=== PATIENT | male | born 1970 | race Caucasian/White ===

== ENCOUNTER 2017-09-08 08:56 | Inpatient (IN) | payer MEDICAID, OTHER ==
--- NOTE | 2017-09-08 09:04 | ED PDOC ---
Arrival/HPI - General Historian: Patient - History of Present Illness Time/Duration: Other (see hpi) Context: Home <Traci Handhodan P - Last Filed: 09/10/17 10:41> <Jalen Ureña - Last Filed: 09/11/17 11:20> - General Time Seen by Provider: 09/08/17 09:04 - History of Present Illness Narrative History of Present Illness (Text): 09/08/17 09:04 This 47 yo male with pmh dm, alcoholism, htn, presents to this Emergency department complaining of sob, cough, palpitation, not feeling well since this morning. Patient admits drinking alcohol daily, and last time was 8 pm last night. Patient noted abdominal pain since last night. Patient denies nausea, vomiting, or urinary symptoms. (Madison Hand) Past Medical History - Provider Review Nursing Documentation Reviewed: Yes <HandTraci sunshinehodan P - Last Filed: 09/10/17 10:41> Family/Social History - Physician Review Nursing Documentation Reviewed: Yes Family/Social History: Other (noncontributory) <HandTracihodan P - Last Filed: 09/10/17 10:41> Allergies/Home Meds <Traci Handhodan P - Last Filed: 09/10/17 10:41> <Jalen Ureña - Last Filed: 09/11/17 11:20> Allergies/Adverse Reactions: Allergies No Known Allergies Allergy (Verified 09/08/17 09:10) Home Medications: Home Meds Medication Instructions Recorded Confirmed MetFORMIN [glucOPHAGE] 1,000 mg PO BID 09/08/17 09/08/17 Review of Systems - Review of Systems Constitutional: Normal. absent: Fatigue, Weight Change, Fevers Eyes: Normal ENT: Normal Respiratory: SOB, Cough Cardiovascular: Normal Gastrointestinal: Abdominal Pain. absent: Nausea, Vomiting Genitourinary Male: Normal. absent: Dysuria, Frequency, Hematuria Musculoskeletal: Normal Skin: Normal Neurological: Normal. absent: Headache, Dizziness, Focal Weakness, Gait Changes , Speech Changes Endocrine: Normal Hemo/Lymphatic: Normal Psychiatric: Normal <HandTraciim P - Last Filed: 09/10/17 10:41> Physical Exam Temperature: Afebrile Blood Pressure: Hypertensive Pulse: Tachycardic Respiratory Rate: Normal Appearance: Positive for: Well-Appearing, Non-Toxic, Comfortable Pain Distress: None Mental Status: Positive for: Alert and Oriented X 3 - Systems Exam Head: Present: Atraumatic, Normocephalic Pupils: Present: PERRL Extroacular Muscles: Present: EOMI Conjunctiva: Present: Normal Mouth: Present: Moist Mucous Membranes Neck: Present: Normal Range of Motion Respiratory/Chest: Present: Good Air Exchange, Rhonchi. No: Respiratory Distress, Accessory Muscle Use, Wheezes, Rales, Retracting, Tachypneic Cardiovascular: Present: Regular Rate and Rhythm, Normal S1, S2. No: Murmurs Abdomen: Present: Normal Bowel Sounds. No: Tenderness, Distention, Peritoneal Signs Back: Present: Normal Inspection Upper Extremity: Present: Normal Inspection. No: Cyanosis, Edema Lower Extremity: Present: Normal Inspection. No: Edema Neurological: Present: GCS=15, CN II-XII Intact, Speech Normal Skin: Present: Warm, Dry, Normal Color. No: Rashes Psychiatric: Present: Alert, Oriented x 3, Normal Insight, Normal Concentration <Madison Hand P - Last Filed: 09/10/17 10:41> Vital Signs Temp Pulse Resp BP Pulse Ox 09/08/17 11:30 136 H 16 121/76 97 09/08/17 11:15 142 H 20 166/109 H 97 09/08/17 10:45 142 H 18 166/109 H 97 09/08/17 10:30 142 H 20 177/109 H 98 09/08/17 10:00 154 H 22 139/100 H 99 09/08/17 09:10 99.8 F H 09/08/17 09:07 126 H 20 163/111 H 99 Medical Decision Making Re-evaluation Time: 12:00 Reassessment Condition: Re-examined, Improved - Lab Interpretations I have reviewed the lab results: Yes Interpretation: Abnormal lab values <Madison Hand P - Last Filed: 09/10/17 10:41> - Critical Care Critical Care Minutes: 60 minutes <Jalen Ureña - Last Filed: 09/11/17 11:20> ED Course and Treatment: 09/08/17 11:[address] Machado Hospitalist and [employer] Shift Lead regarding patient history, physical exam, reviewed labs. She agrees with admission. (Traci Handim P) 09/08/17 11:53 Patient seen and evaluated with PA. I examined patient with family present upon arrival. Patient reports feeling short of breath "since last night". He states that he did "not feel sick before I went to bed" and this morning felt short of breath. Has some epigastric pain with distension on my examination with no rebound or guarding or pulsatile masses. States he drinks alcohol "about two times a week" although reportedly family states that he at times drinks daily. On my initial examination he is tachypneic and tachycardic. He denies chest pain or pleuritic discomfort. Lungs clear, saturations 99-100% on room air although respiratory rate is 30-40. Laboratory evaluation reveals significantly elevated anion gap with acidosis. ABG reviewed, please note that saturations are 99 percent on pulse oximetry when examining patient, does not correlate with ABG. SBP stable in ED between 130-160 while in ED. Suspect acidosis, ? DKA ? AKA, ? sepsis within differential as well as other gi pathology, sequelae of alcohol abuse. Family left ED and unable to provide further history. IV fluids and iv antibiotics initiated as lactate elevated, CODE SEPSIS called. Consulted with material handler 2nd shift, and will admit to hospitalist with renal consults, icu consultation, gi consultation. Remains tachycardic, was somewhat tremulous. Cannot exclude component of alcohol withdrawal as hx of drinking, ativan was ordered. Reassessment at 11:30 he has stable BP, heart rate 130, regular. Reports upper abdominal pain. Saturations 97%., RR 22. [employer] Shift Lead Dr. Mcdowell evaluated patient in the ED. Hospitalist evaluated patient in the ED. Patient requires serial exams and monitoring and icu admission to monitor his mental status and respiratory status. CT findings reviewed and = directly communicated with material handler 2nd shift, care turned over to ICU at 12:00. (Jalen Ureña) - Lab Interpretations Microbiology Results: Microbiology Results 09/08/17 09:21 Blood-Venous Blood Culture - Preliminary NO GROWTH AFTER 3 DAYS Lab Results: 09/08/17 09:21 09/08/17 10:00 Lab Results 09/08/17 10:19: pCO2 15 L*, pO2 35.0 L*, HCO3 5.3 L*, ABG pH 7.16 L*, ABG Total CO2 5.8 L, ABG O2 Saturation 63.6 L, ABG Base Excess -21.1 L, ABG Potassium 1.5 L*, Sodium 137.0, Chloride 105.0, Glucose 133 H, Lactate 5.1 H*, FiO2 32.0, Arterial Blood Potassium 1.5 L* 09/08/17 10:00: Hemoglobin A1c 6.4 09/08/17 10:00: TSH 3rd Generation 0.51 09/08/17 10:00: Salicylates < 1 L 09/08/17 10:00: Phosphorus 4.1 09/08/17 10:00: Sodium 130 L, Chloride 84 L, Potassium 3.0 L, Carbon Dioxide 7 L , Anion Gap 42 H, BUN 16, Creatinine 2.0 H, Est GFR ( Amer) 43, Est GFR ( Non-Af Amer) 36, Random Glucose 194 H, Calcium 10.6 H, Magnesium 1.3 L, Total Bilirubin 2.8 H, AST 248 H, ALT 95 H, Alkaline Phosphatase 117, Lactate Dehydrogenase 959 H, Total Creatine Kinase 220, Troponin I 0.03, NT-Pro-B Natriuret Pep 779 H, Total Protein 8.9 H, Albumin 5.2 H, Globulin 3.7, Albumin/ Globulin Ratio 1.4 09/08/17 09:21: Alcohol, Quantitative 40 H 09/08/17 09:21: Influenza Typ A,B (EIA) Negative for flu a/b 09/08/17 09:21: pO2 137 H, VBG pH 7.13 L*, VBG pCO2 17.0 L*, VBG HCO3 5.7 L, VBG Total CO2 6.2 L, VBG O2 Sat (Calc) 98.9 H, VBG Base Excess -21.4 L, VBG Potassium 7.2 H*, Sodium 126.0 L, Chloride 83.0 L, Glucose 207 H, Lactate 7.7 H* , FiO2 21.0, Venous Blood Potassium 7.2 H* 09/08/17 09:21: WBC 9.9, RBC 4.39, Hgb 13.8 L, Hct 40.9 L, MCV 93.2, MCH 31.4, MCHC 33.7, RDW 14.4, Plt Count 69 L, Gran % 84.7 H, Lymph % (Auto) 6.0 L, [place] % (Auto) 9.2 H, Eos % (Auto) 0.0 L, Baso % (Auto) 0.1, Gran # 8.42 H, Lymph # 0.6 L, [place] # 0.9 H, Eos # 0.0, Baso # 0.01 09/08/17 09:21: PT 13.0 H, INR 1.13 H, APTT 33.5 09/08/17 09:14: POC Glucose (mg/dL) 185 H - RAD Interpretation Radiology Orders: 09/08/17 09:11 CHEST PORTABLE [RAD] Stat 09/08/17 10:32 CHEST,ABDOMEN, PELVIS W/O CONT [CT] Stat - Medication Orders Current Medication Orders: Budesonide (Pulmicort Respules) 0.5 mg IH [id number] [facility] Last Admin: 09/11/17 07:01 Dose: 0.5 mg Fentanyl (Fentanyl) 50 mcg IVP Q4H PRN PRN Reason: Agitation Folic Acid (Folic Acid) 1 mg IVP DAILY [facility] Last Admin: 09/11/17 10:40 Dose: 1 mg IVP Administration Document 09/11/17 10:40 ID (Rec: 09/11/17 10:41 ID [id number]) Charges for Administration # of IVP Administrations 1 Thiamine HCl 200 mg/ Sodium (Chloride) 52 mls @ 104 mls/hr IV Q8 [facility] Stop: 09/11/17 14:01 Last Admin: 09/11/17 05:39 Dose: 104 mls/hr eMAR Start Stop Document 09/11/17 05:39 FG (Rec: 09/11/17 05:42 FG [id number]) Intravenous Solution Start Date 09/11/17 Start Time 05:39 Levetiracetam 1,000 mg/ Sodium (Chloride) 110 mls @ 460 mls/hr IV Q12 [facility] Last Admin: 09/11/17 10:27 Dose: 460 mls/hr eMAR Start Stop Document 09/11/17 10:27 ID (Rec: 09/11/17 10:27 ID [id number]) Intravenous Solution Start Date 09/11/17 Start Time 10:27 End Date 09/11/17 Insulin Human Regular (Humulin R Med) 0 units SC ACHS DENIA PRN Reason: Protocol Last Admin: 09/11/17 08:00 Dose: 3 units MAR Blood Glucose Document 09/11/17 08:00 ID (Rec: 09/11/17 08:01 ID [id number]) Blood Glucose Finger Stick Blood Glucose (70-120) 210 Subcutaneous Administrations Document 09/11/17 08:00 ID (Rec: 09/11/17 08:01 ID [id number]) Injection Site MAR Injection Site Left Deltoid Charges for Administration # of Subcutaneous Administrations 1 Levalbuterol HCl (Xopenex) 0.63 mg IH [id number] [facility] Last Admin: 09/11/17 07:01 Dose: 0.63 mg Lorazepam (Ativan) 2 mg IVP Q3H PRN; Protocol PRN Reason: Agitation Last Admin: 09/10/17 12:16 Dose: 2 mg IVP Administration Document 09/10/17 12:16 ID (Rec: 09/10/17 12:16 ID [id number]) Charges for Administration # of IVP Administrations 1 Behavioural Document 09/10/17 12:16 ID (Rec: 09/10/17 12:16 ID [id number]) Maintenance Maintenance Dose Yes Behavior Behavior for Medication: Anxiety Re-Assess: Reassess Psych Meds Document 09/10/17 12:46 ID (Rec: 09/10/17 16:39 ID [id number]) Reassess Psych Med Effective Multivitamins/Vitamin C (Multi-Delyn Liquid) 15 ml PO 0800 [facility] Last Admin: 09/11/17 08:03 Dose: 15 ml Pantoprazole Sodium (Protonix Inj) 40 mg IVP Q12 [facility] Last Admin: 09/11/17 10:25 Dose: 40 mg IVP Administration Document 09/11/17 10:25 ID (Rec: 09/11/17 10:25 ID [email or web address]) Charges for Administration # of IVP Administrations 1 Thiamine HCl (Vitamin B1 Inj) 100 mg IV DAILY DENIA Vancomycin HCl (Vancocin 25 Mg/Ml (Oral Use)) 500 mg PO Q6 DENIA PRN Reason: Protocol Last Admin: 09/11/17 05:42 Dose: 500 mg Discontinued Medications Albuterol/Ipratropium (Duoneb 3 Mg/0.5 Mg (3 Ml) Ud) 3 ml IH [id number] [facility] Last Admin: 09/10/17 07:58 Dose: 3 ml Diltiazem HCl (Cardizem) 5 mg IVP ONCE ONE Stop: 09/10/17 09:17 Last Admin: 09/10/17 09:45 Dose: 5 mg IVP Administration Document 09/10/17 09:45 ID (Rec: 09/10/17 09:47 ID [facility] [id number]) Charges for Administration # of IVP Administrations 1 MAR Pulse and Blood Pressure Document 09/10/17 09:45 ID (Rec: 09/10/17 09:47 ID [facility] [id number]) Pulse Pulse Rate (60-90 beats/min) 140 Blood Pressure Blood Pressure (100/60-150/90 mm Hg) 106/66 Divalproex Sodium (Depakote Dr(*Bid*)) 1,000 mg PO BID DENIA Last Admin: 09/09/17 17:33 Dose: 1,000 mg Behavioural Document 09/09/17 17:33 RM (Rec: 09/09/17 17:33 RM [id number]) Maintenance Maintenance Dose Yes Furosemide (Lasix) 40 mg IVP ONCE ONE Stop: 09/11/17 09:02 Last Admin: 09/11/17 09:21 Dose: 40 mg MAR Blood Pressure Document 09/11/17 09:21 ID (Rec: 09/11/17 09:21 ID [email or web address]) Blood Pressure Blood Pressure (100/60-150/90 mm Hg) 92/61 IVP Administration Document 09/11/17 09:21 ID (Rec: 09/11/17 09:21 ID [email or web address]) Charges for Administration # of IVP Administrations 1 Multivitamins/Vitamin C 10 ml/Thiamine HCl 100 mg/ Folic Acid 1 mg/ Sodium Chloride 1,011.2 mls @ 1,000 mls/hr IV .Q1H1M ONE Stop: 09/08/17 10:13 Last Admin: 09/08/17 10:01 Dose: 1,000 mls/hr eMAR Start Stop Document 09/08/17 10:01 RG (Rec: 09/08/17 10:05 RG [id number]) Intravenous Solution Start Date 09/08/17 Start Time 10:01 Sodium Chloride (Sodium Chloride 0.9%) 1,000 mls @ 1,000 mls/hr IV .Q1H STA Stop: 09/08/17 11:05 Last Admin: 09/08/17 10:10 Dose: 1,000 mls/hr eMAR Start Stop Document 09/08/17 10:10 RG (Rec: 09/08/17 10:47 RG [id number]) Intravenous Solution Start Date 09/08/17 Start Time 10:10 Lactated Ringer's 2,040 ml/ IV (SUPPLIES) 2,040 mls @ 4,082.34 mls/hr IV ONCE ONE PRN Reason: 60 ML/KG/HR Stop: 09/08/17 10:19 Last Admin: 09/08/17 10:20 Dose: 4,082.34 mls/hr eMAR Start Stop Document 09/08/17 10:20 RG (Rec: 09/08/17 10:52 RG [id number]) Intravenous Solution Start Date 09/08/17 Start Time 10:20 Piperacillin Sod/Tazobactam Sod (Zosyn 4.5 Gm In Ns 100ml) 100 gm in 2,222.22 mls @ 200 mls/hr IVPB STAT STA PRN Reason: Protocol Stop: 09/08/17 21:25 Last Admin: 09/08/17 10:46 Dose: 200 mls/hr eMAR Start Stop Document 09/08/17 10:46 RG (Rec: 09/08/17 10:46 RG [id number]) Intravenous Solution Start Date 09/08/17 Start Time 10:46 Potassium Chloride (Potassium Chloride 10 Meq/100 Ml) 10 meq in 100 mls @ 50 mls/hr IVPB ONCE ONE Stop: 09/08/17 12:46 Last Admin: 09/08/17 11:44 Dose: 50 mls/hr eMAR Start Stop Document 09/08/17 11:44 EWO (Rec: 09/08/17 11:44 EWO [id number]) Intravenous Solution Start Date 09/08/17 Start Time 11:44 Sodium Bicarbonate 150 meq/ (Dextrose) 1,150 mls @ 150 mls/hr IV .Q7H40M [facility] Last Admin: 09/08/17 20:22 Dose: 150 mls/hr eMAR Start Stop Document 09/08/17 20:22 B.P (Rec: 09/08/17 20:22 B.P [id number]) Intravenous Solution Start Date 09/08/17 Start Time 20:22 Thiamine HCl 200 mg/ Sodium (Chloride) 52 mls @ 104 mls/hr IM Q8 DENIA Stop: 09/11/17 14:01 Last Admin: 09/08/17 14:30 Dose: 104 mls/hr IM Administration Charges Document 09/08/17 14:30 RM (Rec: 09/08/17 14:30 RM [id number]) Charges for Administration # of IM Administrations 1 Potassium Chloride (Potassium Chloride 10 Meq/100 Ml) 10 meq in 100 mls @ 50 mls/hr IVPB ONCE ONE Stop: 09/08/17 15:29 Last Admin: 09/08/17 13:30 Dose: 50 mls/hr eMAR Start Stop Document 09/08/17 13:30 RM (Rec: 09/08/17 14:53 RM [id number]) Intravenous Solution Start Date 09/08/17 Start Time 13:30 Magnesium Sulfate 2 gm/ Sodium (Chloride) 104 mls @ 102 mls/hr IVPB ONCE ONE Stop: 09/08/17 13:30 Last Admin: 09/08/17 14:52 Dose: 102 mls/hr Levetiracetam (Keppra 500mg Ivpb) 500 mg in 100 mls @ 460 mls/hr IV Q12 DENIA Last Admin: 09/09/17 21:20 Dose: 460 mls/hr eMAR Start Stop Document 09/09/17 21:20 PD (Rec: 09/09/17 21:21 PD [id number]) Intravenous Solution Start Date 09/09/17 Start Time 21:21 Fentanyl Citrate (Fentanyl Citrate/Sodium Chloride 1 Mg/100 Ml) 1,000 mcg in 100 mls @ 2 mls/hr IV .Q24H PRN; Protocol; 20 MCG/HR PRN Reason: TITRATE PER MD ORDER Last Admin: 09/10/17 22:23 Dose: 80 mcg/hr, 8 mls/hr eMAR Start Stop Document 09/10/17 22:23 FG (Rec: 09/10/17 22:26 FG [id number]) Intravenous Solution Start Date 09/10/17 Start Time 22:25 Boyce Agitation Sedation Document 09/10/17 22:23 FG (Rec: 09/10/17 22:26 FG [id number]) Boyce Agitation Sedation Scale Boyce Agitation Sedation Scale Score +2 Agitated: Frequent non- purposeful movement, fights ventilator Titration Intervention Document 09/10/17 22:23 FG (Rec: 09/10/17 22:26 FG [id number]) Titration Intake Cumulative Intake (Rx) 300 Waste Amount 0 Container Volume 100 Titration Dosing Titration Dose 80 IV Rate 8 Intake/Decrease Started/Running Cumulative Dose 3000 Propofol (Diprivan) 1,000 mg in 100 mls @ 4.082 mls/hr IV .Q24H PRN; Protocol; 10 MCG/KG/MIN PRN Reason: TITRATE PER MD ORDER Last Titration: 09/11/17 07:55 Dose: 10 mcg/kg/min, 4.082 mls/hr Boyce Agitation Sedation Document 09/11/17 07:55 ID (Rec: 09/11/17 07:56 ID [email or web address]) Boyce Agitation Sedation Scale Boyce Agitation Sedation Scale Score -5 Unarousable: No response to voice or physical stimulation Titration Intervention Document 09/11/17 07:55 ID (Rec: 09/11/17 07:56 ID [id number]) Titration Intake Titration Intake 20 Cumulative Intake 20 Cumulative Intake (Rx) 1,020 Waste Amount 0 Container Volume 80 Titration Dosing Titration Dose 10 IV Rate 4.082 Intake/Decrease Decreased Cumulative Dose 81287 Levetiracetam 1,500 mg/ Sodium (Chloride) 115 mls @ 460 mls/hr IV ONCE ONE Stop: 09/08/17 14:36 Last Admin: 09/08/17 17:21 Dose: Piperacillin Sod/Tazobactam Sod (Zosyn 2.25 Gm In 0.9% 100 Ml) 2.25 gm in 100 mls @ 100 mls/hr IVPB Q6 DENIA PRN Reason: Protocol Stop: 09/09/17 00:59 Last Admin: 09/08/17 17:17 Dose: 100 mls/hr eMAR Start Stop Document 09/08/17 17:17 RM (Rec: 09/08/17 17:17 RM [id number]) Intravenous Solution Start Date 09/08/17 Start Time 17:17 NOREPINEPHRINE BIT/0.9 % NACL (Levophed 4 Mg/ 250 Ml Ns Premixed) 4 mg in 250 mls @ 15 mls/hr IV .[id number] PRN; Protocol; 4 MCG/MIN PRN Reason: TITRATE PER MD ORDER Last Titration: 09/10/17 05:11 Dose: 3 mcg/min, 11.25 mls/hr Titration Intervention Document 09/10/17 05:11 PD (Rec: 09/10/17 05:12 PD [id number]) Titration Intake Titration Intake 110 Cumulative Intake 110 Cumulative Intake (Rx) 1,610 Waste Amount 0 Container Volume 140 Titration Dosing Titration Dose 3 IV Rate 11.25 Intake/Decrease Decreased Cumulative Dose 25.76 Potassium Chloride (Potassium Chloride 20 Meq/100 Ml) 20 meq in 100 mls @ 50 mls/hr IVPB Q2H DENIA Stop: 09/08/17 22:14 Last Admin: 09/08/17 21:30 Dose: 50 mls/hr eMAR Start Stop Document 09/08/17 21:30 B.P (Rec: 09/08/17 21:30 B.P [id number]) Intravenous Solution Start Date 09/08/17 Start Time 21:30 Potassium Chloride (Potassium Chloride 10 Meq/100 Ml) 10 meq in 100 mls @ 50 mls/hr IVPB ONCE ONE Stop: 09/08/17 20:16 Last Admin: 09/08/17 18:27 Dose: 50 mls/hr eMAR Start Stop Document 09/08/17 18:27 RM (Rec: 09/08/17 18:27 RM [id number]) Intravenous Solution Start Date 09/08/17 Start Time 18:27 Piperacillin Sod/Tazobactam Sod (Zosyn 2.25 Gm In 0.9% 100 Ml) 2.25 gm in 100 mls @ 100 mls/hr IV Q8 DENIA PRN Reason: Protocol Stop: 09/17/17 22:01 Last Admin: 09/10/17 14:26 Dose: 100 mls/hr eMAR Start Stop Document 09/10/17 14:26 ID (Rec: 09/10/17 14:26 ID [id number]) Intravenous Solution Start Date 09/10/17 Start Time 14:26 End Date 09/10/17 Vancomycin HCl (Vancomycin 1gm) 1 gm in 250 mls @ 167 mls/hr IVPB STAT STA PRN Reason: Protocol Stop: 09/08/17 20:39 Last Admin: 09/08/17 20:22 Dose: 167 mls/hr eMAR Start Stop Document 09/08/17 20:22 B.P (Rec: 09/08/17 20:22 B.P [id number]) Intravenous Solution Start Date 09/08/17 Start Time 20:22 Sodium Chloride (Sodium Chloride 0.9%) 1,000 mls @ 150 mls/hr IV .Q6H40M DENIA Last Admin: 09/10/17 04:57 Dose: 150 mls/hr eMAR Start Stop Document 09/10/17 04:57 PD (Rec: 09/10/17 04:57 PD [id number]) Intravenous Solution Start Date 09/10/17 Start Time 04:57 Sodium Chloride (Sodium Chloride 0.9%) 1,000 mls @ 150 mls/hr IV .Q6H40M STA Stop: 09/09/17 05:09 Potassium Chloride (Potassium Chloride 20 Meq/100 Ml) 20 meq in 100 mls @ 50 mls/hr IVPB Q2H DENIA Stop: 09/09/17 02:44 Last Admin: 09/09/17 01:45 Dose: 50 mls/hr eMAR Start Stop Document 09/09/17 01:45 B.P (Rec: 09/09/17 01:45 B.P [id number]) Intravenous Solution Start Date 09/09/17 Start Time 01:45 Sodium Phosphate 30 mmole/ (Sodium Chloride) 260 mls @ 42.5 mls/hr IVPB ONCE ONE Stop: 09/09/17 18:14 Last Admin: 09/09/17 12:49 Dose: 42.5 mls/hr eMAR Start Stop Document 09/09/17 12:49 RM (Rec: 09/09/17 12:49 RM [id number]) Intravenous Solution Start Date 09/09/17 Start Time 12:49 Potassium Chloride (Potassium Chloride 10 Meq/100 Ml) 10 meq in 100 mls @ 50 mls/hr IVPB ONCE ONE Stop: 09/10/17 10:02 Last Admin: 09/10/17 09:53 Dose: 50 mls/hr eMAR Start Stop Document 09/10/17 09:53 ID (Rec: 09/10/17 09:53 ID [id number]) Intravenous Solution Start Date 09/10/17 Start Time 09:53 End Date 09/10/17 Sodium Bicarbonate 75 meq/ (Sodium Chloride) 1,000 mls @ 75 mls/hr IV .[id number] DENIA Last Admin: 09/11/17 05:38 Dose: 75 mls/hr eMAR Start Stop Document 09/11/17 05:38 FG (Rec: 09/11/17 05:39 FG [id number]) Intravenous Solution Start Date 09/11/17 Start Time 05:39 Levalbuterol HCl (Xopenex) 0.63 mg IH [id number] PRN PRN Reason: Shortness of Breath Last Admin: 09/10/17 14:12 Dose: 0.63 mg Lorazepam (Ativan) 1 mg IVP ONCE ONE PRN Reason: Protocol Stop: 09/08/17 09:16 Last Admin: 09/08/17 09:30 Dose: 1 mg IVP Administration Document 09/08/17 09:30 RG (Rec: 09/08/17 09:47 [id number]) Charges for Administration # of IVP Administrations 1 Lorazepam (Ativan) 1 mg IVP ONCE ONE PRN Reason: Protocol Stop: 09/08/17 10:15 Last Admin: 09/08/17 10:50 Dose: 1 mg IVP Administration Document 09/08/17 10:50 RG (Rec: 09/08/17 10:51 [id number]) Charges for Administration # of IVP Administrations 2 Ondansetron HCl (Zofran Inj) 4 mg IVP STAT STA Stop: 09/08/17 10:14 Last Admin: 09/08/17 10:14 Dose: 4 mg IVP Administration Document 09/08/17 10:14 RG (Rec: 09/08/17 10:47 [id number]) Charges for Administration # of IVP Administrations 1 Pneumococcal Polyvalent Vaccine (Pneumovax 23 Vaccine) 0.5 ml IM .ONCE ONE Stop: 09/08/17 13:25 Potassium Chloride (K-Dur 20 Meq Er Tab) 20 meq PO STAT STA Stop: 09/08/17 11:03 Last Admin: 09/08/17 11:43 Dose: Not Given Non-Admin Reason: NPO Potassium Chloride (Potassium Chloride Oral Soln) 40 meq PO Q2 DENIA Stop: 09/09/17 02:01 Last Admin: 09/09/17 03:39 Dose: 40 meq Potassium Chloride (Potassium Chloride Oral Soln) 40 meq PO ONCE ONE Stop: 09/10/17 08:05 Last Admin: 09/10/17 09:50 Dose: 40 meq Sodium Bicarbonate (Sodium Bicarbonate 8.4% (50 Meq) Syringe) 50 meq IVP ONCE ONE Stop: 09/08/17 10:59 Last Admin: 09/08/17 11:15 Dose: 50 meq IVP Administration Document 09/08/17 11:15 RG (Rec: 09/08/17 11:54 RG [id number]) Charges for Administration # of IVP Administrations 1 Sodium Bicarbonate (Sodium Bicarbonate 8.4% (50 Meq) Syringe) 50 meq IVP ONCE ONE Stop: 09/08/17 14:40 Last Admin: 09/08/17 14:56 Dose: 50 meq IVP Administration Document 09/08/17 14:56 RM (Rec: 09/08/17 14:56 RM [id number]) Charges for Administration # of IVP Administrations 1 Thiamine HCl (Vitamin B1 Inj) 200 mg IV Q8 DENIA Stop: 09/11/17 11:01 Disposition/Present on Arrival - Present on Arrival Any Indicators Present on Arrival: No History of DVT/PE: No History of Uncontrolled Diabetes: No Urinary Catheter: No History of Decub. Ulcer: No - Disposition Have Diagnosis and Disposition been Completed?: Yes Disposition Time: 12:29 Patient Plan: Admission <Madison Hand - Last Filed: 09/10/17 10:41> - Disposition Patient Plan: ICU <Jalen Ureña - Last Filed: 09/11/17 11:20> - Disposition Diagnosis: Acidosis, Sepsis, Alcohol withdrawal, Pancreatitis, Tachycardia, Tachypnea, Thrombocytopenia, Hypokalemia, Elevated liver enzymes, Abnormal CT of the abdomen Disposition: HOSPITALIZED Patient Problems: Current Active Problems Problem Status Onset Acidosis Acute Sepsis Acute Alcohol withdrawal Acute Seizure Acute Pancreatitis Acute Tachycardia Acute Tachypnea Acute Thrombocytopenia Acute Condition: GUARDED
[2017-09-08] MEDS ORDERED: Multivitamin (MVI) 10 ML, Thiamine 100 MG, Folic Acid 1 MG in Sodium Chloride 0.9% 1,00... IV ONE (09:13)
--- NOTE | 2017-09-08 09:33 | RAD ---
HISTORY: Shortness of breath COMPARISON: No prior. FINDINGS: LUNGS: The lungs are well inflated and clear. PLEURA: No significant pleural effusion identified, no pneumothorax apparent. CARDIOVASCULAR: Normal. OSSEOUS STRUCTURES: No significant abnormalities. VISUALIZED UPPER ABDOMEN: Normal. OTHER FINDINGS: None. IMPRESSION: No active pulmonary disease.
[2017-09-08 10:03] LABS: VENOUS BLOOD GAS BASE EXCESS -21.4 mmol/L (0.0-2.0); VENOUS BLOOD GAS PO2 137 mm/Hg (30-55)
[2017-09-08] MEDS ORDERED: Sodium Chloride 0.9% 1,000 ML IV STA ×2 (10:06→22:30)
[2017-09-08 10:11] LABS: BASO # 0.01 K/mm3 (0.0-2.0); BASO % 0.1 % (0.0-3.0); GRAN # 8.42 (1.4-6.5); GRAN % 84.7 % (50.0-68.0); HEMOGLOBIN 13.8 g/dL (14.0-18.0); LYMPH # 0.6 (1.2-3.4); MEAN CELL VOLUME 93.2 fl (80.0-105.0); MEAN CORPUSCULAR HEMOGLOBIN 31.4 pg (25.0-35.0); MEAN CORPUSCULAR HGB CONC 33.7 g/dl (31.0-37.0); MONO # 0.9 (0.1-0.6); MONO % 9.2 % (1.0-6.0); PLATELET COUNT 69 10^3/uL (120.0-450.0); RBC 4.39 10^6/uL (3.5-6.1); RED CELL DISTRIBUTION WIDTH 14.4 % (11.5-14.5); VENOUS BLOOD PH 7.13 (7.32-7.43); WHITE BLOOD COUNT 9.9 10^3/ul (4.5-11.0)
[2017-09-08] MEDS ORDERED: TAZO IVPB STA (10:19)
[2017-09-08] MEDS ORDERED: PIPERACILL IVPB STA (10:19)
[2017-09-08] MEDS ORDERED: NS IVPB STA (10:19)
[2017-09-08 10:21] LABS: ARTERIAL BLOOD GAS O2 SAT 63.6 % (95-98); ARTERIAL BLOOD GAS TCO2 5.8 mmol.L (22-28)
[2017-09-08 10:26] LABS: INR 1.13 (0.93-1.08); PARTIAL THROMBOPLASTIN TIME 33.5 Seconds (25.1-36.5)
[2017-09-08 10:28] LABS: ARTERIAL BLOOD GAS PCO2 15 mm/Hg (35-45); ARTERIAL BLOOD GAS PH 7.16 (7.35-7.45)
[2017-09-08 10:29] LABS: ARTERIAL BLOOD GAS HCO3 5.3 mmol/L (21-28)
[2017-09-08 10:30] LABS: ALB/GLOB RATIO 1.4 (1.1-1.8); ALBUMIN 5.2 g/dL (3.0-4.8); CALCIUM 10.6 mg/dL (8.4-10.5); MAGNESIUM 1.3 mg/dL (1.7-2.2)
[2017-09-08 10:37] LABS: TROPONIN I 0.03 ng/mL
[2017-09-08] MEDS ORDERED: Sodium Bicarbonate (8.4%) 50 Meq Syringe IVP ONE ×3 (10:58→14:39)
[2017-09-08] MEDS ORDERED: Thiamine 100 mg/ml Inj IV SCH (11:00)
[2017-09-08] MEDS ORDERED: Potassium Chloride 20 mEq ER Tab PO STA (11:02)
--- NOTE | 2017-09-08 11:51 | CP.PCM.HP ---
<Jay Harden - Last Filed: 09/08/17 16:36> History of Present Illness - History of Present Illness History of Present Illness: Jay Harden PGY1 IM H&P Note for Dr. Machado cc: cough x1 week and ETOH use History was limited as patient is altered and tachypneic so not able to formalize full sentences. Patient states that he is a diabetic on Metformin and that he drinks alcohol (beer). 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 Patient is able to tell us that his 's name is Ingrid. Patient states that he has been hospitalized before but is unable to state where. Rest of history is limited. Per ED, Patient is a 47yo M with a PMH of DM2, HTN and alcohol use who presented with URI symptoms such as cough, shortness of breath, palpitations. Last drink was last night. ROS was limited. PMH: as above PSH: unknown Meds: Metformin, unknown dosage Allergies: unknown SHx: drinks ETOH, denies drug abuse Present on Admission - Present on Admission Any Indicators Present on Admission: No Review of Systems - Review of Systems Systems not reviewed;Unavailable: Unstable Vital Signs, Altered Mental Status Past Patient History - Infectious Disease Hx of Infectious Diseases: None - Past Social History Smoking Status: Light Smoker < 10 Cigarettes Daily Alcohol: > 2 Drinks/Day Drugs: Denies Home Situation {Lives}: With Family - CARDIAC Hx Hypertension: Yes - NEUROLOGICAL Hx Seizures: Yes - ENDOCRINE/METABOLIC Hx Diabetes Mellitus Type 2: Yes - PSYCHIATRIC Hx Substance Use: No - SURGICAL HISTORY Hx Surgeries: No Meds Allergies/Adverse Reactions: Allergies Allergy/AdvReac Type Severity Reaction Status Date / Time No Known Allergies Allergy Verified 09/08/17 09:10 Physical Exam - Constitutional Appears: Toxic, In Acute Distress, Unkempt - Head Exam Head Exam: ATRAUMATIC, NORMAL INSPECTION - Eye Exam Eye Exam: Normal appearance. absent: Scleral icterus - ENT Exam ENT Exam: Mucous Membranes Dry - Neck Exam Neck exam: Positive for: Normal Inspection - Respiratory Exam Respiratory Exam: Clear to Auscultation Bilateral, Respiratory Distress. absent : Rales, Rhonchi, Wheezes - Cardiovascular Exam Cardiovascular Exam: Tachycardia, REGULAR RHYTHM, +S1, +S2 - GI/Abdominal Exam GI & Abdominal Exam: Distended, Normal Bowel Sounds. absent: Firm, Rebound, Rigid - Extremities Exam Extremities exam: Positive for: full ROM, normal inspection. Negative for: pedal edema Additional comments: nail clubbing noted - Back Exam Back exam: NORMAL INSPECTION - Neurological Exam Neurological exam: Altered - Psychiatric Exam Additional comments: could not be assessed - Skin Skin Exam: Normal Color, Warm Results - Vital Signs Recent Vital Signs: Last Vital Signs Temp 99.8 F H 09/08/17 09:10 Pulse 142 H 09/08/17 10:45 Resp 18 09/08/17 10:45 BP 166/109 H 09/08/17 10:45 Pulse Ox 97 09/08/17 10:45 - Labs Result Diagrams: 09/08/17 09:21 09/08/17 10:00 Assessment & Plan - Assessment and Plan (Free Text) Assessment: 47yo M with a PMH of DM2, HTN and alcohol use who presented with URI symptoms such as cough, shortness of breath, palpitations. Last alcoholic drink was last night. Patient is admitted for severe sepsis (with lactate of 7.7 on presentation, IRWIN vs CKD, elevated LFTs likely ETOH, elevated BNP), high anion gap metabolic acidosis, metabolic acidosis, hyponatremia, and hypokalemia. Plan: Neuro: Patient altered, will attempt to contact (Ingrid; # [phone]) for more information Seizure prophylaxis protocol due to elevated ETOH level in blood Neurology consulted, recs appreciated UDS ordered Thiamine infusion started Maintain normothermia Patient to be transferred to ICU for closer monitoring Cardio: Monitor vitals Maintain MAP > 65 Sinus tachycardia 2/2 sepsis vs ETOH Trops neg x 1 EKG showed sinus tachycardia with nonspecific T wave abnormality Pulm: CXR was unremarkable Pt in respiratory distress Monitor oxygenation and intubate if needed as patient is altered and might not be able to protect airway Maintain SaO2 > 90% GI: NPO Lipase and Amylase elevated indicating pacreatitis 2/2 ETOH vs TG (>1000) CT Findings are concerning for acute pancreatitis. No evidence of ductal dilatation, calcifications or pseudocyst. Mild hepatomegaly, and alcoholic liver steatosis however acute hepatitis is also a consideration. elevated LFT's and INR likely 2/2 chronic ETOH use hepatitis panel ordered GI consulted, recs appreciated Renal/Electrolytes: Replete electrolytes Nephro consulted, recs appreciated UA and UDS ordered, f/u urine osmolality, urea nitrogen, creatinine and electrolytes ordered to determine cause of elevated Cr Endo: keep pt euglycemic and euvolemic TSH ordered Hgb A1C ordered ID: Code sepsis called; will follow up with 6hr bundle patient has received appropriate fluid boluses in ED (LR 2L, NS 1L, Banana bag 1L) HIV 4th gen ordered pending blood and urine cultures ordered cont Zosyn rapid flu test is negative, cannot r/o flu start Tamiflu as per ID ID consulted, recs appreciated Patient was seen, examined and discussed with attending, Dr. Jeannette Harden PGY1 Pager # [phone] <Tatum Machado - Last Filed: 09/09/17 15:25> Results - Vital Signs Recent Vital Signs: Last Vital Signs Temp 100.8 F H 09/09/17 12:20 Pulse 112 H 09/09/17 12:20 Resp 35 H 09/09/17 03:50 BP 86/60 L 09/09/17 12:15 Pulse Ox 100 09/09/17 12:20 - Labs Result Diagrams: 09/09/17 06:00 09/09/17 06:37 Labs: Laboratory Results - last 24 hr 09/08/17 09/08/17 09/08/17 11:44 11:57 13:01 WBC RBC Hgb Hct MCV MCH MCHC RDW Plt Count Manual Plt Count MPV Gran % Lymph % (Auto) [place] % (Auto) Eos % (Auto) Baso % (Auto) Gran # Lymph # [place] # Eos # Baso # Platelet Evaluation pCO2 pO2 HCO3 ABG pH ABG Total CO2 ABG O2 Saturation ABG O2 Content ABG Base Excess ABG Hemoglobin ABG Carboxyhemoglobin POC ABG HHb (Measured) ABG Methemoglobin ABG O2 Capacity VBG pH VBG pCO2 VBG HCO3 VBG Total CO2 VBG O2 Sat (Calc) VBG Base Excess VBG Potassium Hgb O2 Saturation Glucose Lactate FiO2 Sodium Potassium Chloride Carbon Dioxide Anion Gap BUN Creatinine Est GFR ( Amer) Est GFR (Non-Af Amer) POC Glucose (mg/dL) Random Glucose Serum Osmolality Calcium Phosphorus Magnesium Total Bilirubin AST ALT Alkaline Phosphatase Ammonia Total Protein Albumin Globulin Albumin/Globulin Ratio Procalcitonin Venous Blood Potassium Coarse Granular Casts Trace H Urine Osmolality 335 Ur Random Creatinine Ur Random Urea Nitrogn Stool Occult Blood Valproic Acid Hepatitis A IgM Ab Negative Hep Bs Antigen Negative Hep B Core IgM Ab Negative Hepatitis C Antibody Negative Ur L.pneumophila Ag Blood Type Blood Type Confirm Antibody Screen BBK History Checked 09/08/17 09/08/17 09/08/17 13:40 14:52 16:36 WBC RBC Hgb Hct MCV MCH MCHC RDW Plt Count Manual Plt Count MPV Gran % Lymph % (Auto) [place] % (Auto) Eos % (Auto) Baso % (Auto) Gran # Lymph # [place] # Eos # Baso # Platelet Evaluation pCO2 pO2 HCO3 ABG pH ABG Total CO2 ABG O2 Saturation ABG O2 Content ABG Base Excess ABG Hemoglobin ABG Carboxyhemoglobin POC ABG HHb (Measured) ABG Methemoglobin ABG O2 Capacity VBG pH VBG pCO2 VBG HCO3 VBG Total CO2 VBG O2 Sat (Calc) VBG Base Excess VBG Potassium Hgb O2 Saturation Glucose Lactate FiO2 Sodium Potassium Chloride Carbon Dioxide Anion Gap BUN Creatinine Est GFR ( Amer) Est GFR (Non-Af Amer) POC Glucose (mg/dL) 152 H 143 H Random Glucose Serum Osmolality 306 H Calcium Phosphorus Magnesium Total Bilirubin AST ALT Alkaline Phosphatase Ammonia Total Protein Albumin Globulin Albumin/Globulin Ratio Procalcitonin Venous Blood Potassium Coarse Granular Casts Urine Osmolality Ur Random Creatinine Ur Random Urea Nitrogn Stool Occult Blood Valproic Acid Hepatitis A IgM Ab Hep Bs Antigen Hep B Core IgM Ab Hepatitis C Antibody Ur L.pneumophila Ag Blood Type Blood Type Confirm Antibody Screen BBK History Checked 09/08/17 09/08/17 09/08/17 16:50 16:50 19:55 WBC RBC Hgb Hct MCV MCH MCHC RDW Plt Count Manual Plt Count MPV Gran % Lymph % (Auto) [place] % (Auto) Eos % (Auto) Baso % (Auto) Gran # Lymph # [place] # Eos # Baso # Platelet Evaluation pCO2 pO2 35 HCO3 ABG pH ABG Total CO2 ABG O2 Saturation ABG O2 Content ABG Base Excess ABG Hemoglobin ABG Carboxyhemoglobin POC ABG HHb (Measured) ABG Methemoglobin ABG O2 Capacity VBG pH 7.39 VBG pCO2 31.0 L VBG HCO3 18.8 L VBG Total CO2 19.8 L VBG O2 Sat (Calc) 73.9 H VBG Base Excess -5.3 L VBG Potassium 2.1 L* Hgb O2 Saturation Glucose 226 H Lactate 9.4 H* FiO2 21.0 Sodium 132 134.0 Potassium 2.5 L* Chloride 89 L 91.0 L Carbon Dioxide 16 L Anion Gap 29 H BUN 16 Creatinine 1.8 H Est GFR ( Amer) 49 Est GFR (Non-Af Amer) 40 POC Glucose (mg/dL) Random Glucose 149 H Serum Osmolality Calcium 8.6 Phosphorus 1.9 L Magnesium 2.2 Total Bilirubin 2.7 H AST 301 H D ALT 81 H Alkaline Phosphatase 93 Ammonia Total Protein 5.4 L Albumin 3.1 Globulin 2.3 Albumin/Globulin Ratio 1.3 Procalcitonin Venous Blood Potassium 2.1 L* Coarse Granular Casts Urine Osmolality Ur Random Creatinine Ur Random Urea Nitrogn Stool Occult Blood Valproic Acid < 10 L Hepatitis A IgM Ab Hep Bs Antigen Hep B Core IgM Ab Hepatitis C Antibody Ur L.pneumophila Ag Blood Type Blood Type Confirm Antibody Screen BBK History Checked 09/08/17 09/08/17 09/08/17 19:55 19:55 19:55 WBC 4.6 D RBC 3.16 L Hgb 9.8 L D Hct 29.2 L MCV 92.4 MCH 31.0 MCHC 33.6 RDW 13.5 Plt Count 30 L* Manual Plt Count MPV 11.3 H Gran % 77.3 H Lymph % (Auto) 10.9 L [place] % (Auto) 11.6 H Eos % (Auto) 0.0 L Baso % (Auto) 0.2 Gran # 3.53 Lymph # 0.5 L [place] # 0.5 Eos # 0.0 Baso # 0.01 Platelet Evaluation Low pCO2 pO2 HCO3 ABG pH ABG Total CO2 ABG O2 Saturation ABG O2 Content ABG Base Excess ABG Hemoglobin ABG Carboxyhemoglobin POC ABG HHb (Measured) ABG Methemoglobin ABG O2 Capacity VBG pH VBG pCO2 VBG HCO3 VBG Total CO2 VBG O2 Sat (Calc) VBG Base Excess VBG Potassium Hgb O2 Saturation Glucose Lactate FiO2 Sodium 130 L Potassium 2.2 L* Chloride 88 L Carbon Dioxide 18 L Anion Gap 27 H BUN 16 Creatinine 2.0 H Est GFR ( Amer) 43 Est GFR (Non-Af Amer) 36 POC Glucose (mg/dL) Random Glucose 205 H Serum Osmolality Calcium 8.5 Phosphorus Magnesium 2.0 Total Bilirubin 2.7 H AST 448 H D ALT 109 H Alkaline Phosphatase 91 Ammonia Total Protein 5.5 L Albumin 3.1 Globulin 2.4 Albumin/Globulin Ratio 1.3 Procalcitonin 1.60 H Venous Blood Potassium Coarse Granular Casts Urine Osmolality Ur Random Creatinine Ur Random Urea Nitrogn Stool Occult Blood Valproic Acid Hepatitis A IgM Ab Hep Bs Antigen Hep B Core IgM Ab Hepatitis C Antibody Ur L.pneumophila Ag Blood Type Blood Type Confirm Antibody Screen BBK History Checked 09/08/17 09/08/17 09/08/17 20:00 20:00 20:10 WBC RBC Hgb Hct MCV MCH MCHC RDW Plt Count Manual Plt Count MPV Gran % Lymph % (Auto) [place] % (Auto) Eos % (Auto) Baso % (Auto) Gran # Lymph # [place] # Eos # Baso # Platelet Evaluation pCO2 23 L pO2 79.0 L HCO3 16.4 L ABG pH 7.46 H ABG Total CO2 17.1 L ABG O2 Saturation 98.4 H ABG O2 Content ABG Base Excess 5.5 H ABG Hemoglobin ABG Carboxyhemoglobin POC ABG HHb (Measured) ABG Methemoglobin ABG O2 Capacity VBG pH VBG pCO2 VBG HCO3 VBG Total CO2 VBG O2 Sat (Calc) VBG Base Excess VBG Potassium Hgb O2 Saturation Glucose 215 H Lactate FiO2 Sodium Potassium Chloride Carbon Dioxide Anion Gap BUN Creatinine Est GFR ( Amer) Est GFR (Non-Af Amer) POC Glucose (mg/dL) Random Glucose Serum Osmolality Calcium Phosphorus Magnesium Total Bilirubin AST ALT Alkaline Phosphatase Ammonia Total Protein Albumin Globulin Albumin/Globulin Ratio Procalcitonin Venous Blood Potassium Coarse Granular Casts Urine Osmolality Ur Random Creatinine 43 Ur Random Urea Nitrogn 175 Stool Occult Blood Valproic Acid Hepatitis A IgM Ab Hep Bs Antigen Hep B Core IgM Ab Hepatitis C Antibody Ur L.pneumophila Ag Negative Blood Type Blood Type Confirm Antibody Screen BBK History Checked 09/08/17 09/09/17 09/09/17 21:19 00:00 04:54 WBC RBC Hgb Hct MCV MCH MCHC RDW Plt Count Manual Plt Count MPV Gran % Lymph % (Auto) [place] % (Auto) Eos % (Auto) Baso % (Auto) Gran # Lymph # [place] # Eos # Baso # Platelet Evaluation pCO2 36 pO2 40 64.0 L HCO3 18.5 L ABG pH 7.32 L ABG Total CO2 19.6 L ABG O2 Saturation 94.1 L ABG O2 Content 14.0 L ABG Base Excess -6.9 L ABG Hemoglobin 10.8 L ABG Carboxyhemoglobin 1.7 H POC ABG HHb (Measured) 5.7 H ABG Methemoglobin 0.9 ABG O2 Capacity 14.9 L VBG pH 7.34 VBG pCO2 40.0 VBG HCO3 21.6 VBG Total CO2 22.8 VBG O2 Sat (Calc) 80.2 H VBG Base Excess -3.9 L VBG Potassium 3.3 L Hgb O2 Saturation 91.7 L Glucose 232 H Lactate 4.6 H* FiO2 21.0 100.0 Sodium 134.0 Potassium Chloride 94.0 L Carbon Dioxide Anion Gap BUN Creatinine Est GFR ( Amer) Est GFR (Non-Af Amer) POC Glucose (mg/dL) 207 H Random Glucose Serum Osmolality Calcium Phosphorus Magnesium Total Bilirubin AST ALT Alkaline Phosphatase Ammonia Total Protein Albumin Globulin Albumin/Globulin Ratio Procalcitonin Venous Blood Potassium 3.3 L Coarse Granular Casts Urine Osmolality Ur Random Creatinine Ur Random Urea Nitrogn Stool Occult Blood Valproic Acid Hepatitis A IgM Ab Hep Bs Antigen Hep B Core IgM Ab Hepatitis C Antibody Ur L.pneumophila Ag Blood Type Blood Type Confirm Antibody Screen BBK History Checked 09/09/17 09/09/17 09/09/17 06:00 06:37 06:37 WBC 6.4 D RBC 3.31 L Hgb 10.5 L Hct 31.0 L MCV 93.7 MCH 31.7 MCHC 33.9 RDW 13.7 Plt Count 23 L* Manual Plt Count MPV Gran % Lymph % (Auto) [place] % (Auto) Eos % (Auto) Baso % (Auto) Gran # Lymph # [place] # Eos # Baso # Platelet Evaluation pCO2 pO2 50 HCO3 ABG pH ABG Total CO2 ABG O2 Saturation ABG O2 Content ABG Base Excess ABG Hemoglobin ABG Carboxyhemoglobin POC ABG HHb (Measured) ABG Methemoglobin ABG O2 Capacity VBG pH 7.31 L VBG pCO2 43.0 VBG HCO3 21.7 VBG Total CO2 23.0 VBG O2 Sat (Calc) 87.0 H VBG Base Excess -4.5 L VBG Potassium 4.1 Hgb O2 Saturation Glucose 219 H Lactate 4.1 H* FiO2 21.0 Sodium 135 136.0 Potassium 4.1 Chloride 97 L 99.0 Carbon Dioxide 20 L Anion Gap 22 H BUN 19 Creatinine 2.5 H Est GFR ( Amer) 33 Est GFR (Non-Af Amer) 28 POC Glucose (mg/dL) Random Glucose 203 H Serum Osmolality Calcium 8.1 L Phosphorus 1.0 L* Magnesium Total Bilirubin 2.7 H AST > 750 H D ALT 173 H Alkaline Phosphatase 85 Ammonia Total Protein 5.7 L Albumin 3.1 Globulin 2.6 Albumin/Globulin Ratio 1.2 Procalcitonin Venous Blood Potassium 4.1 Coarse Granular Casts Urine Osmolality Ur Random Creatinine Ur Random Urea Nitrogn Stool Occult Blood Valproic Acid Hepatitis A IgM Ab Hep Bs Antigen Hep B Core IgM Ab Hepatitis C Antibody Ur L.pneumophila Ag Blood Type Blood Type Confirm Antibody Screen BBK History Checked 09/09/17 09/09/17 09/09/17 07:07 09:30 10:29 WBC RBC Hgb Hct MCV MCH MCHC RDW Plt Count Manual Plt Count 27 L* MPV Gran % Lymph % (Auto) [place] % (Auto) Eos % (Auto) Baso % (Auto) Gran # Lymph # [place] # Eos # Baso # Platelet Evaluation pCO2 pO2 HCO3 ABG pH ABG Total CO2 ABG O2 Saturation ABG O2 Content ABG Base Excess ABG Hemoglobin ABG Carboxyhemoglobin POC ABG HHb (Measured) ABG Methemoglobin ABG O2 Capacity VBG pH VBG pCO2 VBG HCO3 VBG Total CO2 VBG O2 Sat (Calc) VBG Base Excess VBG Potassium Hgb O2 Saturation Glucose Lactate FiO2 Sodium Potassium Chloride Carbon Dioxide Anion Gap BUN Creatinine Est GFR ( Amer) Est GFR (Non-Af Amer) POC Glucose (mg/dL) 203 H Random Glucose Serum Osmolality Calcium Phosphorus Magnesium Total Bilirubin AST ALT Alkaline Phosphatase Ammonia Total Protein Albumin Globulin Albumin/Globulin Ratio Procalcitonin Venous Blood Potassium Coarse Granular Casts Urine Osmolality Ur Random Creatinine Ur Random Urea Nitrogn Stool Occult Blood Positive H Valproic Acid Hepatitis A IgM Ab Hep Bs Antigen Hep B Core IgM Ab Hepatitis C Antibody Ur L.pneumophila Ag Blood Type Blood Type Confirm Antibody Screen BBK History Checked 09/09/17 09/09/17 09/09/17 10:59 11:30 11:30 WBC RBC Hgb Hct MCV MCH MCHC RDW Plt Count Manual Plt Count MPV Gran % Lymph % (Auto) [place] % (Auto) Eos % (Auto) Baso % (Auto) Gran # Lymph # [place] # Eos # Baso # Platelet Evaluation pCO2 pO2 53 HCO3 ABG pH ABG Total CO2 ABG O2 Saturation ABG O2 Content ABG Base Excess ABG Hemoglobin ABG Carboxyhemoglobin POC ABG HHb (Measured) ABG Methemoglobin ABG O2 Capacity VBG pH 7.34 VBG pCO2 41.0 VBG HCO3 22.1 VBG Total CO2 23.4 VBG O2 Sat (Calc) 88.1 H VBG Base Excess -3.5 L VBG Potassium 4.0 Hgb O2 Saturation Glucose 208 H Lactate 4.1 H* FiO2 21.0 Sodium 137.0 Potassium Chloride 102.0 Carbon Dioxide Anion Gap BUN Creatinine Est GFR ( Amer) Est GFR (Non-Af Amer) POC Glucose (mg/dL) 215 H Random Glucose Serum Osmolality Calcium Phosphorus Magnesium Total Bilirubin AST ALT Alkaline Phosphatase Ammonia Total Protein Albumin Globulin Albumin/Globulin Ratio Procalcitonin Venous Blood Potassium 4.0 Coarse Granular Casts Urine Osmolality Ur Random Creatinine Ur Random Urea Nitrogn Stool Occult Blood Valproic Acid Hepatitis A IgM Ab Hep Bs Antigen Hep B Core IgM Ab Hepatitis C Antibody Ur L.pneumophila Ag Blood Type O POSITIVE Blood Type Confirm Antibody Screen Negative BBK History Checked No verified bt 09/09/17 09/09/17 11:30 12:17 WBC RBC Hgb Hct MCV MCH MCHC RDW Plt Count Manual Plt Count MPV Gran % Lymph % (Auto) [place] % (Auto) Eos % (Auto) Baso % (Auto) Gran # Lymph # [place] # Eos # Baso # Platelet Evaluation pCO2 pO2 HCO3 ABG pH ABG Total CO2 ABG O2 Saturation ABG O2 Content ABG Base Excess ABG Hemoglobin ABG Carboxyhemoglobin POC ABG HHb (Measured) ABG Methemoglobin ABG O2 Capacity VBG pH VBG pCO2 VBG HCO3 VBG Total CO2 VBG O2 Sat (Calc) VBG Base Excess VBG Potassium Hgb O2 Saturation Glucose Lactate FiO2 Sodium Potassium Chloride Carbon Dioxide Anion Gap BUN Creatinine Est GFR ( Amer) Est GFR (Non-Af Amer) POC Glucose (mg/dL) Random Glucose Serum Osmolality Calcium Phosphorus Magnesium Total Bilirubin AST ALT Alkaline Phosphatase Ammonia 12 Total Protein Albumin Globulin Albumin/Globulin Ratio Procalcitonin Venous Blood Potassium Coarse Granular Casts Urine Osmolality Ur Random Creatinine Ur Random Urea Nitrogn Stool Occult Blood Valproic Acid Hepatitis A IgM Ab Hep Bs Antigen Hep B Core IgM Ab Hepatitis C Antibody Ur L.pneumophila Ag Blood Type Blood Type Confirm O POSITIVE Antibody Screen BBK History Checked Attending/Attestation - Attestation I have personally seen and examined this patient.: Yes I have fully participated in the care of the patient.: Yes I have reviewed all pertinent clinical information: Yes Notes (Text): 09/09/17 14:59 Attending note; Patient seen and examined with resident in ER. Patient is a 47-year-old male admitted with shortness of breath and abdominal discomfort. History is not reliable. Patient just got Ativan. Currently patient is able to answer a few questions correctly. Patient is a 47-year-old with a past medical history of alcohol abuse, diabetes is admitted with abdominal pain and shortness of breath. The patient was found to be severely acidotic with elevated lactic acid level. Possible etiology for acidosis are renal failure, sepsis, metformin. Patient was given IV bicarbonate push. Started on IV bicarbonate drip. Monitor respiratory status closely. Patient might need intubation if he does not improve. Alcohol abuse; continue Ativan when necessary. Seizure protocol. Monitor for seizures. Alcoholic pancreatitis; acute renal insufficiency; possibly prerenal. Continue IV fluids. thrombocytopenia; secondary to alcohol-induced bone marrow suppression. Hypokalemia/hypomagnesemia; continue IV supplementation. Addendum; After patient reached ICU patient had seizure like activity. Briefly lost pulse. CODE BLUE called. Resuscitated. ACLS protocol followed. Patient is intubated. NG tube placed. Started on IV Keppra. Neurology evaluation requested. Continue IV Ativan . Started on propofol drip . Triple-lumen placement for pressors. Case discussed with patient's and daughter in detail by the bedside . Poor prognosis explained in detail . Monitor the patient closely in ICU. Prognosis is poor.
[2017-09-08 11:57] LABS: PH,URINE 6.5 (4.7-8.0); URINE BILIRUBIN SMALL (NEGATIVE); URINE BLOOD LARGE (NEGATIVE); URINE GLUCOSE (UA) NEGATIVE (NEGATIVE); URINE LEUKOCYTE ESTERASE NEGATIVE Leu/uL (NEGATIVE); URINE NITRATE NEGATIVE (NEGATIVE); URINE PROTEIN 100 mg/dL (<30 mg/dL); URINE UROBILINOGEN 0.2 E.U./dL (<1 E.U./dL)
[2017-09-08 12:00] LABS: URINE APPEARANCE CLEAR (CLEAR); URINE COLOR YELLOW (YELLOW)
--- NOTE | 2017-09-08 12:03 | CT ---
PROCEDURE: CT Chest, Abdomen and Pelvis without intravenous contrast HISTORY: Shortness of breath, abdominal pain COMPARISON: None. TECHNIQUE: CT scan of the abdomen and pelvis was performed without administration of intravenous contrast. Oral contrast was not administered. Coronal and sagittal reformatted images were obtained. Radiation dose: Total exam DLP = 698.76 mGy-cm. This CT exam was performed using one or more of the following dose reduction techniques: Automated exposure control, adjustment of the mA and/or kV according to patient size, and/or use of iterative reconstruction technique. FINDINGS: CT CHEST WITHOUT CONTRAST: LUNGS: The lungs are clear. There is dependent atelectasis in the lingula and posterior lower lobes. There is no focal consolidation or mass. There are no endobronchial lesions. MEDIASTINUM: The heart is normal in size. No pericardial effusion. The aorta is not dilated. LYMPH NODES: There are multiple subcentimeter mediastinal lymph nodes. PLEURA: No pleural effusions or pneumothorax. BONES: There is mild multilevel degenerative disc disease. CT ABDOMEN AND PELVIS: LIVER: The liver is enlarged and there is diffuse low-attenuation. No intrahepatic ductal dilatation. GALLBLADDER AND BILE DUCTS: There is layering sludge in the gallbladder. No calcified gallstones. PANCREAS: There is mild enlargement of the pancreas with indistinct pancreatic margins and significant peripancreatic inflammatory changes. No evidence of ductal dilatation, calcifications or pseudocyst. SPLEEN: Normal in size and echotexture. ADRENALS: There is thickening of both adrenal glands without discrete nodule. KIDNEYS AND URETERS: No hydronephrosis. No solid mass. VASCULATURE: Unremarkable. No aortic aneurysm. BOWEL: The small bowel loops are normal in caliber. There is no bowel dilatation or obstruction. There is mild scattered colonic diverticulosis. APPENDIX: Normal appendix. PERITONEUM: No free fluid. No free air. LYMPH NODES: No enlarged lymph nodes. BLADDER: Partially decompressed. REPRODUCTIVE: Unremarkable. BONES: No acute fracture. Mild multilevel degenerative disc disease. OTHER FINDINGS: There are bilateral small fat containing inguinal hernias. IMPRESSION: 1. Findings are concerning for acute pancreatitis. No evidence of ductal dilatation, calcifications or pseudocyst. 2. Mild hepatomegaly. Severe diffuse low-attenuation in the liver corresponding to fatty density may represent alcoholic steatosis however acute hepatitis is also a consideration. Important findings were discussed with Dr. Brownlee in the ER on 09/08/2017 at 11:45 a.m.
[2017-09-08 12:11] LABS: URINE BACTERIA NEG (NEG); URINE EPITHELIAL CELLS 0 - 2 /hpf (0-5); URINE RBC 0 - 2 /hpf (0-2); URINE WBC 0 - 2 /hpf (0-6)
[2017-09-08 12:12] LABS: URINE HYALINE CAST 0 - 2 /hpf
[2017-09-08] MEDS: Sodium Bicarbonate 8.4% 150 MEQ in Dextrose 5% In Water 1,000 ML IV SCH ×2 (12:20→20:22)
[2017-09-08 12:26] LABS: AMYLASE 495 U/L (35-125); HDL CHOLESTEROL 60 mg/dL (29-60)
[2017-09-08] MEDS ORDERED: Propofol 10 mg/ml 1,000 MG/100 ML VIAL ONE (12:26)
[2017-09-08 12:27] LABS: LDL CHOLESTEROL 62 mg/dL (0-129)
[2017-09-08] MEDS ORDERED: Magnesium Sulfate 2 GM in Sodium Chloride 0.9% 100 ML IVPB ONE (12:29)
[2017-09-08 12:30] LABS: BARBITURATES, UR NEGATIVE (NEGATIVE); BENZODIAZEPINES, UR NEGATIVE (NEGATIVE); OPIATES, UR NEGATIVE (NEGATIVE); PHENCYCLIDINE, UR NEGATIVE (NEGATIVE)
--- NOTE | 2017-09-08 12:46 | PCM.RRT ---
ACCOUNT FINANCIAL MANAGER Nurse Assessment - Situation Date: 09/08/17 Time ACCOUNT FINANCIAL MANAGER was called: 12:08 ACCOUNT FINANCIAL MANAGER Location:: Critical Care Unit Room Number: 128-4 ACCOUNT FINANCIAL MANAGER Reason for Call: Respiratory Distress ACCOUNT FINANCIAL MANAGER Called By: RN - Respiratory Oxygen Delivery Method: Intubated - Ventilator Settings Mode: PRVC - Stat Labs Ordered ACCOUNT FINANCIAL MANAGER Stat Labs Ordered: ABG I.Reason for ACCOUNT FINANCIAL MANAGER - A) Acute Change in Patient: (Select all that apply): Acute change in respiratory rate less than 8 or greater than 28 Subjective: JOHN prasad called at 1208 after patient was found unresponsive and pulseless by nurse. Patient was recently admitted and just transferred from the ED to the ICU. Patient was noted to be in Asystole and ACLS started. Normal saline given wide open throughout code. Patient did vomit during compressions as he was being ventilated by a bag mask. 2 doses of Epinephrine were given. During compressions, patient began to have a seizure and was given Ativan 2 mg. Patient was then intubated. Patient also received 1 amp of sodium bicarb. ROSC was obtained at 1217. Patient remains in the ICU. NGT tube in place. Labs redrawn. Blood pressure at the end of the code was 138/81 and Heart rate was 113. - Respiratory Oxygen Delivery Method: Intubated - Constitutional Appears: In Acute Distress, Older Than Stated Age - Head Head Exam: ATRAUMATIC, NORMAL INSPECTION, NORMOCEPHALIC - Respiratory Exam Respiratory Exam: Decreased Breath Sounds, Rhonchi, Respiratory Distress. absent: Rales (`), Wheezes - Cardiovascular Exam Cardiovascular Exam: Tachycardia, REGULAR RHYTHM, +S1, +S2 - GI/Abdominal Exam GI & Abdominal Exam: Distended, Soft, Normal Bowel Sounds - Neurological Exam Additional exam: Intubated - Extremities Exam Extremities Exam: Normal Inspection. absent: Calf Tenderness, Pedal Edema Plan - Assessment of Findings&Treatment Plan Patient to remain in the ICU Labs redrawn Fentanyl drip started Keppra started for seizure prophylaxis Banana bag for possible alcohol withdrawal Neurology consulted for seizures Will continue to monitor closely and follow up labs
[2017-09-08 12:47] LABS: LIPASE 13765 U/L (23-300)
--- NOTE | 2017-09-08 12:51 | PCM.PROC ---
Procedures Attestation:: I certify that I have explained the specified Operation(s) or Procedure(s), risks, benefits and reasonable alternatives to the Patient and/or other person responsible. The opportunity was given to ask questions and all questions answered - Intubation Time Out Performed: No (actively arresting/aspirating ) Sedative: Other (2mg Ativan given for seizure activity ) Laryngoscope: Joseph, Glidescope Assist Device Used: Other (stylette ) ET Tube Size: 8.0 ET Tube Secured at Depth: 22 ET Tube Secured Locarion: Lips ET Tube Placement Confirmation: Visualized Passing Through Cords, Breath Sounds Equal Bilaterally, No Breath Sounds Over Epigastrum, Confirmation w/Capnometry Patient Tolerated Procedure: Well Procedure Immediate Complications: None
[2017-09-08 13:24] VITALS: BMI 26.5
[2017-09-08] MEDS ORDERED: Influenza Vaccine 60 mcg/0.5 mL SYR (4YR UP) IM ONE (13:24)
[2017-09-08] MEDS ORDERED: Pneumococcal 23-Valent Vaccine IM ONE (13:24)
--- NOTE | 2017-09-08 13:37 | RAD ---
HISTORY: post intubated COMPARISON: 09/08/2017. FINDINGS: The endotracheal tube terminates in the mid trachea. The nasogastric tube terminates in the stomach. LUNGS: There are low lung volumes. There is ill-defined airspace disease in the right mid lung and lower lobe. PLEURA: No significant pleural effusion identified, no pneumothorax apparent. CARDIOVASCULAR: Normal. OSSEOUS STRUCTURES: No significant abnormalities. VISUALIZED UPPER ABDOMEN: Normal. OTHER FINDINGS: None. IMPRESSION: 1. Endotracheal tube terminates in the mid trachea. 2. Ill-defined airspace disease in the right mid lung and lower lobe may represent atelectasis or pneumonia. 3. Low lung volumes may be related to poor inspiratory effort.
[2017-09-08] MEDS ORDERED: levETIRAcetam 1,500 MG in Sodium Chloride 0.9% 100 ML IV ONE (14:22)
[2017-09-08 14:24] LABS: ARTERIAL BLOOD GAS HCO3 11.2 mmol/L (21-28); ARTERIAL BLOOD GAS PCO2 37 mm/Hg (35-45); ARTERIAL BLOOD GAS TCO2 12.3 mmol.L (22-28)
[2017-09-08 14:26] LABS: ARTERIAL BLOOD GAS PH 7.09 (7.35-7.45)
[2017-09-08] MEDS: Fentanyl 1000mcg/100ml NS 1,000 MCG/100 ML BAG IV PRN (14:48)
[2017-09-08] MEDS: levETIRAcetam 500mg IVPB 500 MG/100 ML BAG IV SCH ×2 (14:50→21:04)
[2017-09-08 15:13] LABS: URINE COARSE GRANULAR CAST TRACE /hpf (0-2)
--- NOTE | 2017-09-08 15:15 | CP.PCM.CON ---
History of Present Illness - History of Present Illness History of Present Illness: 47 yr old male with pmh of DM2, HTN, who presented to the Er with diffuse abdominal pain, and then became altered and tachypneic so not able to formalize full sentences. Patient states that he is a diabetic on Metformin and that he drinks alcohol (beer). Alcohol level is 40. 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 Patient is able to tell us that his ' s name is Ingrid. Patient states that he has been hospitalized before but is unable to state where. The patient was found to be severely acidotic, and he went into asystole. He was coded my MICU team and and rhythm restored with tachycardia. He was observed to be seizing on my exam, intubated with tonic seizures. ROS was limited. PMH: as above PSH: unknown Meds: Metformin, unknown dosage Allergies: unknown SHx: drinks ETOH, denies drug abuse On exam: Intubated, on diprivan drip. Pupils: reactive, sluggishly, but right pupil is less reactive. no facial asymmetry tonic posturing, with alternating stiffening, not moving limbs purposefully. +1 dtr ul and ll bl. Toes downgoing no clonus. CT head: too unstable to obtain Past Patient History - Infectious Disease Hx of Infectious Diseases: None - Past Social History Smoking Status: Light Smoker < 10 Cigarettes Daily Alcohol: > 2 Drinks/Day Drugs: Denies Home Situation {Lives}: With Family - CARDIAC Hx Hypertension: Yes - NEUROLOGICAL Hx Seizures: Yes - ENDOCRINE/METABOLIC Hx Diabetes Mellitus Type 2: Yes - INTEGUMENTARY Other/Comment: dry scaley hard skin to both feet toes, dry skin to legs, thick toenails both feet - MUSCULOSKELETAL/RHEUMATOLOGICAL Hx Falls: No - PSYCHIATRIC Hx Substance Use: No - SURGICAL HISTORY Hx Surgeries: No Meds Allergies/Adverse Reactions: Allergies Allergy/AdvReac Type Severity Reaction Status Date / Time No Known Allergies Allergy Verified 09/08/17 09:10 - Medications Medications: Current Medications Piperacillin Sod/Tazobactam Sod (Zosyn 4.5 Gm In Ns 100ml) 100 gm in 2,222.22 mls @ 200 mls/hr IVPB STAT STA PRN Reason: Protocol Stop: 09/08/17 21:25 Last Admin: 09/08/17 10:46 Dose: 200 mls/hr Sodium Bicarbonate 150 meq/ (Dextrose) 1,150 mls @ 150 mls/hr IV .Q7H40M [facility] Thiamine HCl 200 mg/ Sodium (Chloride) 52 mls @ 104 mls/hr IM Q8 [facility] Stop: 09/11/17 14:01 Potassium Chloride (Potassium Chloride 10 Meq/100 Ml) 10 meq in 100 mls @ 50 mls/hr IVPB ONCE ONE Stop: 09/08/17 15:29 Levetiracetam (Keppra 500mg Ivpb) 500 mg in 100 mls @ 460 mls/hr IV Q12 [facility] Fentanyl Citrate (Fentanyl Citrate/Sodium Chloride 1 Mg/100 Ml) 1,000 mcg in 100 mls @ 2 mls/hr IV .Q24H PRN; Protocol; 20 MCG/HR PRN Reason: TITRATE PER MD ORDER Propofol (Diprivan) 1,000 mg in 100 mls @ 4.082 mls/hr IV .Q24H PRN; Protocol; 10 MCG/KG/MIN PRN Reason: TITRATE PER MD ORDER Levetiracetam 1,500 mg/ Sodium (Chloride) 115 mls @ 460 mls/hr IV ONCE ONE Stop: 09/08/17 14:36 Insulin Human Regular (Humulin R Med) 0 units SC ACHS [facility] PRN Reason: Protocol Results - Vital Signs Recent Vital Signs: Last Vital Signs Temp 99.3 F 09/08/17 14:00 Pulse 135 H 09/08/17 14:00 Resp 18 09/08/17 13:06 BP 92/69 L 09/08/17 14:00 Pulse Ox 92 L 09/08/17 14:00 - Labs Result Diagrams: 09/08/17 09:21 09/08/17 10:00 Labs: Laboratory Results - last 24 hr 09/08/17 09/08/17 09/08/17 11:44 11:57 11:57 pCO2 pO2 HCO3 ABG pH ABG Total CO2 ABG O2 Saturation ABG Base Excess ABG Potassium Sodium Chloride Glucose Lactate Mechanical Rate FiO2 Tidal Volume PEEP Triglycerides Cholesterol LDL Cholesterol Direct HDL Cholesterol Amylase Lipase Arterial Blood Potassium Urine Color Yellow Urine Appearance Clear Urine pH 6.5 Ur Specific [place] 1.020 Urine Protein 100 H Urine Glucose (UA) Negative Urine Ketones 40 H Urine Blood Large H Urine Nitrate Negative Urine Bilirubin Small H Urine Urobilinogen 0.2 Ur Leukocyte Esterase Negative Urine RBC 0 - 2 Urine WBC 0 - 2 Ur Epithelial Cells 0 - 2 Urine Bacteria Neg Hyaline Casts 0 - 2 Coarse Granular Casts Trace H Ur Random Sodium 89 Ur Random Potassium 31.5 Urine Opiates Screen Negative Urine Methadone Screen Negative Ur Barbiturates Screen Negative Ur Phencyclidine Scrn Negative Ur Amphetamines Screen Negative U Benzodiazepines Scrn Negative U Oth Cocaine Metabols Negative U Cannabinoids Screen Negative 09/08/17 09/08/17 12:05 14:20 pCO2 37 pO2 64.0 L HCO3 11.2 L ABG pH 7.09 L* ABG Total CO2 12.3 L ABG O2 Saturation 91.0 L ABG Base Excess -17.8 L ABG Potassium 3.2 L Sodium 135.0 Chloride 92.0 L Glucose 163 H Lactate 11.2 H* Mechanical Rate 16 FiO2 100.0 Tidal Volume 400 PEEP 5 Triglycerides 1053 H Cholesterol 269 H LDL Cholesterol Direct 62 HDL Cholesterol 60 Amylase 495 H Lipase 60616 H Arterial Blood Potassium 3.2 L Urine Color Urine Appearance Urine pH Ur Specific [place] Urine Protein Urine Glucose (UA) Urine Ketones Urine Blood Urine Nitrate Urine Bilirubin Urine Urobilinogen Ur Leukocyte Esterase Urine RBC Urine WBC Ur Epithelial Cells Urine Bacteria Hyaline Casts Coarse Granular Casts Ur Random Sodium Ur Random Potassium Urine Opiates Screen Urine Methadone Screen Ur Barbiturates Screen Ur Phencyclidine Scrn Ur Amphetamines Screen U Benzodiazepines Scrn U Oth Cocaine Metabols U Cannabinoids Screen Assessment & Plan - Assessment and Plan (Free Text) Assessment: 47 yr old male in ?diabetic ketoacidosis, treated for status, who has now stopped seizing, and is being stabilized by medical team. We will continue Keppra 750 mg IV bid, and Depakote 750 mg IV bid, with ativan prn for breakthrough seizure. Plan: 1. Continue keppra 750 mg IV bid 2. Continue depakote 750 IV bid 3. Depakote levels. 4. EEG sunday 5. CT head when stable
--- NOTE | 2017-09-08 15:45 | CARD ---
APPROVED REPORT EKG Measurement Heart [id number] [place] [id number] <Conclusion> Sinus tachycardia Inferior infarct, age undetermined Abnormal ECG
--- NOTE | 2017-09-08 15:47 | CARD ---
APPROVED REPORT EKG Measurement Heart [id number] [place] [id number] <Conclusion> Sinus tachycardia Nonspecific ST and T wave abnormality Inferior infarct, age undetermined Abnormal ECG
--- NOTE | 2017-09-08 15:50 | CARD ---
APPROVED REPORT EKG Measurement Heart [id number] [place] [id number] <Conclusion> Sinus tachycardia Nonspecific T wave abnormality Abnormal ECG
--- NOTE | 2017-09-08 16:37 | PCM.SEPTIC ---
<Jay Harden - Last Filed: 09/08/17 16:37> Sepsis Progress Note - Reassessment Type Date of Evaluation: 09/08/17 Time of Evaluation: 14:37 Reassessment Type: Non-invasive reassessment - Non Invasive Reassessment Were the most recent vital sign reviewed: Yes Vital Sign (Latest): Temp Pulse Resp BP Pulse Ox 99.7 F H 125 H 18 94/71 L 96 09/08/17 15:54 09/08/17 15:54 09/08/17 13:06 09/08/17 15:55 09/08/17 15:54 Cardiovascular: Yes: Tachycardia. No: Edema, JVD Respiratory: Yes: Normal Breath Sounds, Other (intubated). No: Crackles, Rales , Rhonchi, Wheezing Capillary Refill: Normal (Less than 2 sec) Pulses: Normal Radial Skin: Normal Color <Tatum Machado - Last Filed: 09/09/17 15:28> Sepsis Progress Note - Non Invasive Reassessment Vital Sign (Latest): Temp Pulse Resp BP Pulse Ox 100.8 F H 112 H 35 H 86/60 L 100 09/09/17 12:20 09/09/17 12:20 09/09/17 03:50 09/09/17 12:15 09/09/17 12:20 Attending/Attestation - Attestation I have personally seen and examined this patient.: Yes I have fully participated in the care of the patient.: Yes I have reviewed all pertinent clinical information, including history, physical exam and plan: Yes Notes (Text): 09/09/17 15:27 code sepsis note; Patient was given IV Zosyn. Patient was intubated. Status post cardiopulmonary resuscitation. Lactic acid level elevated post cardiac arrest . Monitor closely in ICU . Prognosis is poor .
--- NOTE | 2017-09-08 16:58 | PCM.PROC ---
Procedures Attestation:: I certify that I have explained the specified Operation(s) or Procedure(s), risks, benefits and reasonable alternatives to the Patient and/or other person responsible. The opportunity was given to ask questions and all questions answered - Central Line Placement Right Internal Jugular Triple Lumen Catheter Aseptic technique was employed throughout the procedure: Hand Hygiene done prior to procedure, Full sterile barriers (mask, hair cover, sterile gown, sterile gloves), Full body sterile drape, Chloraprep Antiseptic: 30 second prep for IJ or SC sites CVP Time Out Performed: No Pt. Placed on Pulse Ox Monitor: Yes Central Line Prep: Chlorhexidine-Alcohol Combination Ultrasound Used for Placement: Yes Central Line Lumen Inserted: triple Central Line Length: 30 cm Post Procedure: Sutured in Place, Good Blood Return, All Ports Aspirated, Flushed, Capped, Sterile Dressing Applied Secured by: Suture Post procedure dressing: Chlorhexidine disc (Biopatch) Post Procedure X-Ray: Yes Patient Tolerated Procedure: Well, No Complications Immediate Complications: None Additional Comments: Patient sedates by propofol and fentanyl, no local anesthetic used
[2017-09-08] MEDS: Propofol 10 mg/ml 1,000 MG/100 ML VIAL IV PRN ×3 (17:18→21:05)
[2017-09-08] MEDS: Insulin Reg-MEDIUM-Coverage SC SCH ×2 (17:21→21:21)
--- NOTE | 2017-09-08 17:29 | CP.PCM.CON ---
History of Present Illness - History of Present Illness History of Present Illness: Initial Nephrology Consultation: Assessment: critical Acute Kidney Injury (N17.9) likely due to pre-renal state, SIRS Hyponatermia, hypokalemia DM, HTN, chronic alcoholism acute pancreatitis HAGMA with lactic acidosis + alcohol ketoacidosis and starvation ketoacidosis Thrombocytopenia Hypomagnesemia Plan No acute need for renal replacement therapy at this time but may need soon. Hypertension control with meds as ordered. Patient not on ACEI/ARB due to IRWIN. maintain hemodynamics stable Monitor Input/Output, daily weights and renal function with basic metabolic panel Check urine analysis, spot protein/creatinine and albumin/creatinine ratio CT abdomen showed acute pancreatitis and fatty liver high dose thiamine as 200 mg q 8 and continue with folic acid MVI supplements bicarb drip with D5W + 150 meq bicarb supplement KCL monitor pH and electrolytes closely IVF resuscitation as per icu hold metformin Dose meds/antibiotics for reduced GFR. Avoid fleets enema/magnesium based laxatives. Avoid nephrotoxins/NSAIDs/ iodinated contrast (unless needed emergently) Glycemic control Further work up/management as per primary team Thanks for allowing me to participate in care of your patient. Will follow patient with you. Please call if any Qs/. d/w team Dr Finn Ng Office: [phone] Chief Complaint; unable HPI: Pt is a 47 M with hx of diabetes Mellitus hypertension and chronic daily Etoh abuse presented with SOB, pain abdomen and not feeling well renal consult for IRWIN and acidosis pt unable to provide any hx no hx noted for any spurious or toxic alcohol ingestion ROS: unable Physical Examination: General Appearance: uncomfortable,ill appearing Vitals reviewed and noted as below Head; Atraumatic, normocephalic ENT: no ulcers no thrush. Tongue is midline. Oropharynx: no rash or ulcers. EYES: Pupils are equal, round and reactive to light accommodation. Eye muscles and extraocular movement intact. Sclera is anicteric. Neck; supple no lymphadenopathy, no thyromegaly or bruit Lungs: Increased respiratory rate/effort. Breath sounds bilateral equal and clear Heart: Increased rate. s1s2 normal. No rub or gallop. Extremities: no edema. No varicose veins Neurological: Patient is deliouos and restless Skin: Warm and dry. Normal turgor. No rash. Palpitation: Normal elasticity for age Abdomen: Abdomen is soft. Bowel sounds +. There is mild abdominal tenderness, no guarding/rigidity no organomegaly Psych: unable MSK: no joint tenderness or swelling. has clubing : kidney or bladder not palpable Labs/imaging reviewed. Past medical history, past surgical history, family history, social history, allergy reviewed and noted as below Family hx: no hx of CKD. Rest non-contributory UA no crystals but has ketone and protein Past Patient History - Infectious Disease Hx of Infectious Diseases: None - Past Social History Smoking Status: Light Smoker < 10 Cigarettes Daily - CARDIAC Hx Hypertension: Yes - NEUROLOGICAL Hx Seizures: Yes - ENDOCRINE/METABOLIC Hx Diabetes Mellitus Type 2: Yes - PSYCHIATRIC Hx Substance Use: No - SURGICAL HISTORY Hx Surgeries: No Meds Allergies/Adverse Reactions: Allergies Allergy/AdvReac Type Severity Reaction Status Date / Time No Known Allergies Allergy Verified 09/08/17 09:10 - Medications Medications: Current Medications Piperacillin Sod/Tazobactam Sod (Zosyn 4.5 Gm In Ns 100ml) 100 gm in 2,222.22 mls @ 200 mls/hr IVPB STAT STA PRN Reason: Protocol Stop: 09/08/17 21:25 Last Admin: 09/08/17 10:46 Dose: 200 mls/hr Potassium Chloride (Potassium Chloride 10 Meq/100 Ml) 10 meq in 100 mls @ 50 mls/hr IVPB ONCE ONE Stop: 09/08/17 12:46 Sodium Bicarbonate 150 meq/ (Dextrose) 1,150 mls @ 150 mls/hr IV .Q7H40M [facility] Thiamine HCl 200 mg/ Sodium (Chloride) 52 mls @ 104 mls/hr IM Q8 [facility] Stop: 09/11/17 14:01 Results - Vital Signs Recent Vital Signs: Last Vital Signs Temp 99.8 F H 09/08/17 09:10 Pulse 142 H 09/08/17 10:45 Resp 18 09/08/17 10:45 BP 166/109 H 09/08/17 10:45 Pulse Ox 97 09/08/17 10:45 - Labs Result Diagrams: 09/08/17 09:21 09/08/17 10:00
[2017-09-08 17:31] LABS: ALB/GLOB RATIO 1.3 (1.1-1.8); ALBUMIN 3.1 g/dL (3.0-4.8); CALCIUM 8.6 mg/dL (8.4-10.5); MAGNESIUM 2.2 mg/dL (1.7-2.2)
[2017-09-08] MEDS: Divalproex 500 mg DR(BID formulation) PO SCH (17:47)
[2017-09-08] MEDS: NOREPINEPHRINE BIT/0.9 % NACL 4 MG/250 ML BAG IV PRN ×2 (17:48→21:09)
[2017-09-08 17:56] LABS: HEPATITIS B SURFACE AG Negative (NEGATIVE)
[2017-09-08] MEDS ORDERED: Piperacillin/Tazobact 2.25gm 2.25 GM/100 ML BAG IVPB SCH (18:00)
[2017-09-08 18:02] LABS: HEPATITIS A IGM NEGATIVE (NEGATIVE); HEPATITIS B CORE AB NEGATIVE (NEGATIVE)
[2017-09-08 18:14] LABS: HEPATITIS C ANTIBODY NEGATIVE (NEGATIVE)
[2017-09-08] MEDS ORDERED: Vancomycin 1gm in NS 250ml 1 GM/250 ML BAG IVPB STA (19:10)
[2017-09-08 20:11] LABS: VENOUS BLOOD GAS BASE EXCESS -5.3 mmol/L (0.0-2.0); VENOUS BLOOD GAS PO2 35 mm/Hg (30-55); VENOUS BLOOD PH 7.39 (7.32-7.43)
[2017-09-08 20:22] LABS: BASO # 0.01 K/mm3 (0.0-2.0); BASO % 0.2 % (0.0-3.0); GRAN # 3.53 (1.4-6.5); GRAN % 77.3 % (50.0-68.0); HEMOGLOBIN 9.8 g/dL (14.0-18.0); LYMPH # 0.5 (1.2-3.4); LYMPH % 10.9 % (22.0-35.0); MEAN CELL VOLUME 92.4 fl (80.0-105.0); MEAN CORPUSCULAR HGB CONC 33.6 g/dl (31.0-37.0); MEAN PLATELET VOLUME 11.3 fl (7.0-11.0); MONO # 0.5 (0.1-0.6); MONO % 11.6 % (1.0-6.0); RBC 3.16 10^6/uL (3.5-6.1); RED CELL DISTRIBUTION WIDTH 13.5 % (11.5-14.5); WHITE BLOOD COUNT 4.6 10^3/ul (4.5-11.0)
[2017-09-08 20:25] LABS: PLATELET COUNT 30 10^3/uL (120.0-450.0); PLATELET ESTIMATE LOW (NORMAL)
[2017-09-08 20:55] LABS: CREATININE,RANDOM URINE 43 mg/dL
[2017-09-08 20:57] LABS: ALB/GLOB RATIO 1.3 (1.1-1.8); ALBUMIN 3.1 g/dL (3.0-4.8); CALCIUM 8.5 mg/dL (8.4-10.5)
[2017-09-08] MEDS: Piperacillin/Tazobact 2.25gm 2.25 GM/100 ML BAG IV SCH (21:14)
[2017-09-08 22:30] LABS: ARTERIAL BLOOD GAS PH 7.46 (7.35-7.45)
[2017-09-08 22:31] LABS: ARTERIAL BLOOD GAS HCO3 16.4 mmol/L (21-28); ARTERIAL BLOOD GAS O2 SAT 98.4 % (95-98); ARTERIAL BLOOD GAS PCO2 23 mm/Hg (35-45); ARTERIAL BLOOD GAS TCO2 17.1 mmol.L (22-28)
[2017-09-08] MEDS: Sodium Chloride 0.9% 1,000 ML IV SCH (22:53)
[2017-09-08] MEDS: Potassium Chloride 40 mEq/30 ml LIQ UD PO SCH (23:21)
[2017-09-09 00:20] LABS: VENOUS BLOOD GAS BASE EXCESS -3.9 mmol/L (0.0-2.0); VENOUS BLOOD GAS PO2 40 mm/Hg (30-55); VENOUS BLOOD PH 7.34 (7.32-7.43)
[2017-09-09] MEDS: NOREPINEPHRINE BIT/0.9 % NACL 4 MG/250 ML BAG IV PRN ×4 (01:20→19:03)
[2017-09-09] MEDS: Potassium Chloride 40 mEq/30 ml LIQ UD PO SCH ×2 (01:28→03:39)
[2017-09-09 04:57] LABS: ARTERIAL BLOOD GAS HCO3 18.5 mmol/L (21-28); ARTERIAL BLOOD GAS HEMOGLOBIN 10.8 g/dL (11.7-17.4); ARTERIAL BLOOD GAS O2 CAPACITY 14.9 mL/dl (16-24); ARTERIAL BLOOD GAS O2 SAT 94.1 % (95-98); ARTERIAL BLOOD GAS PCO2 36 mm/Hg (35-45); ARTERIAL BLOOD GAS PH 7.32 (7.35-7.45); ARTERIAL BLOOD GAS TCO2 19.6 mmol.L (22-28)
[2017-09-09] MEDS: Piperacillin/Tazobact 2.25gm 2.25 GM/100 ML BAG IV SCH ×3 (05:23→21:51)
[2017-09-09] MEDS: Propofol 10 mg/ml 1,000 MG/100 ML VIAL IV PRN ×2 (05:49→16:32)
--- NOTE | 2017-09-09 06:37 | CP.PCM.PN ---
Subjective - Date & Time of Evaluation Date of Evaluation: 09/09/17 Time of Evaluation: 06:34 - Subjective Subjective: Mr. Aguero was seen and examined at the bedside in ICU. He remains on mechanical ventilator on a PRVC mode with GCS- 4T. He is currently receiving sedation of fentanyl and propofol. His pupils are sluggish to react to light accommodation. He remains with Bilateral upper extremities wrist restraints for patient safety. There was no untoward events overnight. Objective - Vital Signs/Intake and Output Vital Signs (last 24 hours): Temp Pulse Resp BP Pulse Ox 98.4 F 116 H 35 H 106/77 96 09/09/17 06:10 09/09/17 06:10 09/09/17 03:50 09/09/17 06:00 09/09/17 06:10 Intake and Output: 09/08/17 09/09/17 18:59 06:59 Intake Total 2791 885.3 Output Total 455 Balance 2336 885.3 - Medications Medications: Current Medications Divalproex Sodium (Depakote Dr(*Bid*)) 1,000 mg PO BID [facility] Last Admin: 09/08/17 17:47 Dose: 1,000 mg Levetiracetam (Keppra 500mg Ivpb) 500 mg in 100 mls @ 460 mls/hr IV Q12 [facility] Last Admin: 09/08/17 21:04 Dose: 460 mls/hr Fentanyl Citrate (Fentanyl Citrate/Sodium Chloride 1 Mg/100 Ml) 1,000 mcg in 100 mls @ 2 mls/hr IV .Q24H PRN; Protocol; 20 MCG/HR PRN Reason: TITRATE PER MD ORDER Last Titration: 09/09/17 04:00 Dose: 50 mcg/hr, 5 mls/hr Propofol (Diprivan) 1,000 mg in 100 mls @ 4.082 mls/hr IV .Q24H PRN; Protocol; 10 MCG/KG/MIN PRN Reason: TITRATE PER MD ORDER Last Admin: 09/09/17 05:49 Dose: 30 mcg/kg/min, 12.247 mls/hr Thiamine HCl 200 mg/ Sodium (Chloride) 52 mls @ 104 mls/hr IV Q8 [facility] Stop: 09/11/17 14:01 Last Admin: 09/09/17 05:22 Dose: 104 mls/hr NOREPINEPHRINE BIT/0.9 % NACL (Levophed 4 Mg/ 250 Ml Ns Premixed) 4 mg in 250 mls @ 15 mls/hr IV .G09P36M PRN; Protocol; 4 MCG/MIN PRN Reason: TITRATE PER MD ORDER Last Titration: 09/09/17 04:15 Dose: 2 mcg/min, 7.5 mls/hr Piperacillin Sod/Tazobactam Sod (Zosyn 2.25 Gm In 0.9% 100 Ml) 2.25 gm in 100 mls @ 100 mls/hr IV Q8 [facility] PRN Reason: Protocol Stop: 09/17/17 22:01 Last Admin: 09/09/17 05:23 Dose: 100 mls/hr Sodium Chloride (Sodium Chloride 0.9%) 1,000 mls @ 150 mls/hr IV .Q6H40M [facility] Last Admin: 09/08/17 22:53 Dose: 150 mls/hr Insulin Human Regular (Humulin R Med) 0 units SC ACHS [facility] PRN Reason: Protocol Last Admin: 09/08/17 21:21 Dose: Not Given - Labs Labs: 09/08/17 19:55 09/08/17 19:55 PT 13.0 SECONDS (9.4-12.5) H 09/08/17 09:21 INR 1.13 (0.93-1.08) H 09/08/17 09:21 APTT 33.5 Seconds (25.1-36.5) 09/08/17 09:21 - Constitutional Appears: No Acute Distress - Head Exam Head Exam: NORMAL INSPECTION - Extremities Exam Extremities Exam: Normal Capillary Refill - Neurological Exam Neurological Exam: Awake Neuro motor strength exam: Left Upper Extremity: 3, Right Upper Extremity: 3, Left Lower Extremity: 3, Right Lower Extremity: 3 Additional comments: GCS-4T easily gets agitated Assessment and Plan (1) Seizure Assessment & Plan: Case discussed with Dr. Remy, continue all current medical regimen. Recommend repeat valproic level and EEG in am. Pending CT of the head without contrast. DVT prophylaxis. Status: Acute
[2017-09-09 06:43] LABS: VENOUS BLOOD GAS BASE EXCESS -4.5 mmol/L (0.0-2.0); VENOUS BLOOD GAS PO2 50 mm/Hg (30-55); VENOUS BLOOD PH 7.31 (7.32-7.43)
[2017-09-09 07:01] LABS: ALB/GLOB RATIO 1.2 (1.1-1.8); ALBUMIN 3.1 g/dL (3.0-4.8); ALT/SGPT 173 U/L (7-56); AST/SGOT > 750 U/L (17-59); BLOOD UREA NITROGEN 19 mg/dL (7-21); CALCIUM 8.1 mg/dL (8.4-10.5); GFR AFRICAN-AMERICAN 33; GFR NON-AFRICAN AMERICAN 28
--- NOTE | 2017-09-09 07:30 | CP.PCM.PN ---
<Jay Harden - Last Filed: 09/09/17 17:04> Subjective - Date & Time of Evaluation Date of Evaluation: 09/09/17 Time of Evaluation: 07:29 - Subjective Subjective: Jay Harden PGY1 IM Progress Note Patient was seen and examined in ICU. He remains intubated and sedated. He is in no distress and per nurses, there was no acute overnight events. Patient is on pressors PRN Objective - Vital Signs/Intake and Output Vital Signs (last 24 hours): Temp Pulse Resp BP Pulse Ox 98.4 F 116 H 35 H 106/77 96 09/09/17 06:10 09/09/17 06:10 09/09/17 03:50 09/09/17 06:00 09/09/17 06:10 Intake and Output: 09/09/17 09/09/17 06:59 18:59 Intake Total 885.3 Balance 885.3 - Medications Medications: Current Medications Divalproex Sodium (Depakote Dr(*Bid*)) 1,000 mg PO BID [facility] Last Admin: 09/08/17 17:47 Dose: 1,000 mg Levetiracetam (Keppra 500mg Ivpb) 500 mg in 100 mls @ 460 mls/hr IV Q12 [facility] Last Admin: 09/08/17 21:04 Dose: 460 mls/hr Fentanyl Citrate (Fentanyl Citrate/Sodium Chloride 1 Mg/100 Ml) 1,000 mcg in 100 mls @ 2 mls/hr IV .Q24H PRN; Protocol; 20 MCG/HR PRN Reason: TITRATE PER MD ORDER Last Titration: 09/09/17 04:00 Dose: 50 mcg/hr, 5 mls/hr Propofol (Diprivan) 1,000 mg in 100 mls @ 4.082 mls/hr IV .Q24H PRN; Protocol; 10 MCG/KG/MIN PRN Reason: TITRATE PER MD ORDER Last Admin: 09/09/17 05:49 Dose: 30 mcg/kg/min, 12.247 mls/hr Thiamine HCl 200 mg/ Sodium (Chloride) 52 mls @ 104 mls/hr IV Q8 [facility] Stop: 09/11/17 14:01 Last Admin: 09/09/17 05:22 Dose: 104 mls/hr NOREPINEPHRINE BIT/0.9 % NACL (Levophed 4 Mg/ 250 Ml Ns Premixed) 4 mg in 250 mls @ 15 mls/hr IV .[id number] PRN; Protocol; 4 MCG/MIN PRN Reason: TITRATE PER MD ORDER Last Titration: 09/09/17 04:15 Dose: 2 mcg/min, 7.5 mls/hr Piperacillin Sod/Tazobactam Sod (Zosyn 2.25 Gm In 0.9% 100 Ml) 2.25 gm in 100 mls @ 100 mls/hr IV Q8 DENIA PRN Reason: Protocol Stop: 09/17/17 22:01 Last Admin: 09/09/17 05:23 Dose: 100 mls/hr Sodium Chloride (Sodium Chloride 0.9%) 1,000 mls @ 150 mls/hr IV .Q6H40M [facility] Last Admin: 09/08/17 22:53 Dose: 150 mls/hr Insulin Human Regular (Humulin R Med) 0 units SC ACHS DENIA PRN Reason: Protocol Last Admin: 09/08/17 21:21 Dose: Not Given - Labs Labs: 09/08/17 19:55 09/09/17 06:37 PT 13.0 SECONDS (9.4-12.5) H 09/08/17 09:21 INR 1.13 (0.93-1.08) H 09/08/17 09:21 APTT 33.5 Seconds (25.1-36.5) 09/08/17 09:21 - Constitutional Appears: No Acute Distress - Head Exam Head Exam: ATRAUMATIC, NORMAL INSPECTION - Eye Exam Eye Exam: PERRL (sluggish), Scleral icterus - ENT Exam Additional comments: intubated - Neck Exam Neck Exam: Normal Inspection Additional comments: R IJ in place - Respiratory Exam Respiratory Exam: absent: Rales, Rhonchi, Wheezes Additional comments: ventilated - Cardiovascular Exam Cardiovascular Exam: Tachycardia, +S1, +S2 - GI/Abdominal Exam GI & Abdominal Exam: Distended. absent: Tenderness - Extremities Exam Extremities Exam: Normal Inspection - Back Exam Back Exam: NORMAL INSPECTION - Neurological Exam Neurological Exam: Altered - Psychiatric Exam Additional comments: unable to assess - Skin Skin Exam: Normal Color Assessment and Plan - Assessment and Plan (Free Text) Assessment: 47yo M with a PMH of DM2, HTN and alcohol use who presented with URI symptoms such as cough, shortness of breath, palpitations. Last alcoholic drink was night prior to admission. Patient is admitted for septic shock (with lactate of 7.7 on presentation, IRWIN vs CKD, elevated LFTs likely ETOH, elevated BNP), high anion gap metabolic acidosis, hyponatremia, and hypokalemia. Plan: 1. Septic shock - Lipase and Amylase elevated indicating pacreatitis 2/2 ETOH vs TG (>1000) - CT Findings are concerning for acute pancreatitis. No evidence of ductal dilatation, calcifications or pseudocyst. Mild hepatomegaly, and alcoholic liver steatosis however acute hepatitis is also a consideration. - patient on NS @ 150 DENIA and pressors PRN - Maintain normothermia - tylenol supp PRN - cont Vanc and Zosyn - blood cultures pending - urine cultures showed no growth - stool cultures indicating cdiff +Ag/-Toxin - patient did not tolerate PO meds, will retry - continue ICU monitoring due to unstable vitals and altered mental state - Monitor vitals - Maintain MAP > 65 - ID consulted for management of septic shock, recs appreciated - GI consulted for alcoholic pancreatitis and +stool occult blood, recs appreciated - Surgery consulted for abdominal distention, recs appreciated 2. Anion gap metabolic acidosis likely 2/2 lactic acidosis and ETOH - s/p cardiac arrest 09/08 - lactate was elevated on presentation, however, increase likely 2/2 cardiac arrest - patient was intubated to protect airway due to hypoxemia and vomiting to reduce risk of aspiration - currently on Fentanyl and Propofol PRN - Maintain SaO2 > 90% - CXR confirmed correct placement of endotracheal tube - TSH and A1C WNL 3. ETOH withdrawal seizures - cont Keppra 500mg Q12 and Depakote 1g BID - ETOH level was elevated on admission, patient stated last drink was 09/07 PM - cont IV Thiamine - UDS negative other than ETOH level - Neurology consulted, recs appreciated 4. 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 IRWIN vs CKD a/w Hypophosphatemia - FENa 3.2 indicating ATN - given septic shock, likely component of pre-renal and intrinsic ischemic ATN ( coarse granular casts seen on UA) - continue fluids - avoid nephrotoxins - Nephrology consulted, recs appreciated 6. Transaminitis likely w/ underlying liver disease - likely 2/2 shock liver and chronic ETOH use since INR is elevated - hepatitis panel negative - HIV pending - continue to monitor 7. Poor prognosis - continue to discussion with to establish understanding of condition - Palliative care consulted Patient was seen, examined and discussed with attending, Dr. Jeannette Harden PGY1 Pager # [phone] <Tatum Machado - Last Filed: 09/09/17 17:59> Objective - Vital Signs/Intake and Output Vital Signs (last 24 hours): Temp Pulse Resp BP Pulse Ox 100.6 F H 117 H 33 H 115/75 93 L 09/09/17 16:50 09/09/17 16:50 09/09/17 16:10 09/09/17 16:45 09/09/17 16:50 Intake and Output: 09/09/17 09/09/17 06:59 18:59 Intake Total 4345.0 633.0 Output Total 310 Balance 4035.0 633.0 - Medications Medications: Current Medications Albuterol/Ipratropium (Duoneb 3 Mg/0.5 Mg (3 Ml) Ud) 3 ml IH [id number] DENIA Budesonide (Pulmicort Respules) 0.5 mg IH [id number] [facility] Divalproex Sodium (Depakote Dr(*Bid*)) 1,000 mg PO BID [facility] Last Admin: 09/09/17 17:33 Dose: 1,000 mg Levetiracetam (Keppra 500mg Ivpb) 500 mg in 100 mls @ 460 mls/hr IV Q12 [facility] Last Admin: 09/09/17 10:50 Dose: 460 mls/hr Fentanyl Citrate (Fentanyl Citrate/Sodium Chloride 1 Mg/100 Ml) 1,000 mcg in 100 mls @ 2 mls/hr IV .Q24H PRN; Protocol; 20 MCG/HR PRN Reason: TITRATE PER MD ORDER Last Titration: 09/09/17 15:00 Dose: 35 mcg/hr, 3.5 mls/hr Propofol (Diprivan) 1,000 mg in 100 mls @ 4.082 mls/hr IV .Q24H PRN; Protocol; 10 MCG/KG/MIN PRN Reason: TITRATE PER MD ORDER Last Admin: 09/09/17 16:32 Dose: 35 mcg/kg/min, 14.288 mls/hr Thiamine HCl 200 mg/ Sodium (Chloride) 52 mls @ 104 mls/hr IV Q8 [facility] Stop: 09/11/17 14:01 Last Admin: 09/09/17 14:39 Dose: 104 mls/hr NOREPINEPHRINE BIT/0.9 % NACL (Levophed 4 Mg/ 250 Ml Ns Premixed) 4 mg in 250 mls @ 15 mls/hr IV .[id number] PRN; Protocol; 4 MCG/MIN PRN Reason: TITRATE PER MD ORDER Last Titration: 09/09/17 17:49 Dose: 10 mcg/min, 37.5 mls/hr Piperacillin Sod/Tazobactam Sod (Zosyn 2.25 Gm In 0.9% 100 Ml) 2.25 gm in 100 mls @ 100 mls/hr IV Q8 [facility] PRN Reason: Protocol Stop: 09/17/17 22:01 Last Admin: 09/09/17 13:07 Dose: 100 mls/hr Sodium Chloride (Sodium Chloride 0.9%) 1,000 mls @ 150 mls/hr IV .Q6H40M [facility] Last Admin: 09/09/17 13:08 Dose: 150 mls/hr Sodium Phosphate 30 mmole/ (Sodium Chloride) 260 mls @ 42.5 mls/hr IVPB ONCE ONE Stop: 09/09/17 18:14 Last Admin: 09/09/17 12:49 Dose: 42.5 mls/hr Insulin Human Regular (Humulin R Med) 0 units SC ACHS [facility] PRN Reason: Protocol Last Admin: 09/09/17 16:35 Dose: Not Given Vancomycin HCl (Vancocin 25 Mg/Ml (Oral Use)) 500 mg PO Q6 [facility] PRN Reason: Protocol - Labs Labs: 09/09/17 06:00 09/09/17 06:37 PT 13.0 SECONDS (9.4-12.5) H 09/08/17 09:21 INR 1.13 (0.93-1.08) H 09/08/17 09:21 APTT 33.5 Seconds (25.1-36.5) 09/08/17 09:21 Attending/Attestation - Attestation I have personally seen and examined this patient.: Yes I have fully participated in the care of the patient.: Yes I have reviewed all pertinent clinical information, including history, physical exam and plan: Yes Notes (Text): 09/09/17 17:55 Attending note; Patient seen and examined with resident in ICU. Patient is a 47-year-old with a past medical history of alcohol abuse, diabetes is admitted with abdominal pain and shortness of breath. The patient was found to be severely acidotic with elevated lactic acid level. The patient coded yesterday. Currently intubated on 100% FiO2 with PEEP of 12. Weaning protocol per ICU. Hypertension/septic shock; continue IV Zosyn. Currently on low-dose Levophed. Alcohol abuse; continue Ativan when necessary. Seizure protocol. Monitor for seizures. Alcoholic pancreatitis; continue IV fluids. GI evaluation with Dr. Borden appreciated. Elevated LFTs; worsening liver failure due to shock liver/alcohol abuse. Monitor closely. acute renal insufficiency; worsening renal failure. Secondary to shock. Monitor urine output. Nephrology evaluation appreciated. Acidosis is resolving. Off Bicarbonate drip. thrombocytopenia; secondary to alcohol-induced bone marrow suppression. Transfuse 1 unit of platelet today. Alcohol withdrawal seizures; neurology evaluation appreciated. Continue IV Keppra. Overall prognosis is poor. Palliative care evaluation requested.
[2017-09-09] MEDS: Insulin Reg-MEDIUM-Coverage SC SCH ×4 (08:05→21:29)
--- NOTE | 2017-09-09 08:30 | RAD ---
HISTORY: central line placement COMPARISON: 09/08/2017 at 12:44 p.m. FINDINGS: The endotracheal tube terminates 2.8 cm proximal to the emmanuelle. The nasogastric tube terminates in the stomach. The right IJV line terminates in the SVC. LUNGS: There is probable atelectasis in the right lower lobe. The left lung is clear. No focal consolidation. PLEURA: No significant pleural effusion identified, no pneumothorax apparent. CARDIOVASCULAR: Normal. OSSEOUS STRUCTURES: No significant abnormalities. VISUALIZED UPPER ABDOMEN: Normal. OTHER FINDINGS: None. IMPRESSION: Right IJV line terminates in the SVC. No acute findings.
--- NOTE | 2017-09-09 10:06 | RAD ---
HISTORY: Intubated COMPARISON: 09/08/2017 FINDINGS: The endotracheal tube terminates 2.5 cm proximal to the emmanuelle. The nasogastric tube terminates in the distal esophagus. The right IJV line terminates in the SVC. LUNGS: There is ill-defined airspace disease in the right lower lobe and a left retrocardiac opacity. There is mild pulmonary venous congestion. PLEURA: There are small pleural effusions, no pneumothorax apparent. CARDIOVASCULAR: Normal. OSSEOUS STRUCTURES: No significant abnormalities. VISUALIZED UPPER ABDOMEN: Normal. OTHER FINDINGS: None. IMPRESSION: 1. The nasogastric tube terminates in the distal esophagus, further advancement is recommended. 2. Bilateral lower lobe airspace disease which may represent atelectasis or pneumonia. Also noted are small pleural effusions.
[2017-09-09] MEDS: levETIRAcetam 500mg IVPB 500 MG/100 ML BAG IV SCH ×2 (10:50→21:20)
[2017-09-09] MEDS: Divalproex 500 mg DR(BID formulation) PO SCH ×2 (10:50→17:33)
[2017-09-09 11:01] LABS: HEMOGLOBIN 10.5 g/dL (14.0-18.0); MEAN CELL VOLUME 93.7 fl (80.0-105.0); MEAN CORPUSCULAR HEMOGLOBIN 31.7 pg (25.0-35.0); MEAN CORPUSCULAR HGB CONC 33.9 g/dl (31.0-37.0); RBC 3.31 10^6/uL (3.5-6.1); RED CELL DISTRIBUTION WIDTH 13.7 % (11.5-14.5); WHITE BLOOD COUNT 6.4 10^3/ul (4.5-11.0)
[2017-09-09 11:04] LABS: PLATELET COUNT 23 10^3/uL (120.0-450.0)
[2017-09-09 11:53] LABS: VENOUS BLOOD GAS BASE EXCESS -3.5 mmol/L (0.0-2.0); VENOUS BLOOD GAS PO2 53 mm/Hg (30-55); VENOUS BLOOD PH 7.34 (7.32-7.43)
[2017-09-09] MEDS ORDERED: Sodium Phosphate 30 MMOLE in Sodium Chloride 0.9% 250 ML IVPB ONE (12:07)
[2017-09-09] MEDS: Fentanyl 1000mcg/100ml NS 1,000 MCG/100 ML BAG IV PRN (13:05)
[2017-09-09] MEDS: Sodium Chloride 0.9% 1,000 ML IV SCH ×2 (13:08→22:13)
--- NOTE | 2017-09-09 13:45 | CP.PCM.PN ---
Subjective - Date & Time of Evaluation Date of Evaluation: 09/09/17 Time of Evaluation: 13:43 - Subjective Subjective: Follow up Nephrology Consultation: Assessment: critical Acute Kidney Injury (N17.9) likely due to pre-renal state, SIRS, Acute tubular necrosis Hyponatermia, hypokalemia DM, HTN, chronic alcoholism, hepatic dysfunction acute pancreatitis HAGMA with lactic acidosis + alcohol ketoacidosis and starvation ketoacidosis Thrombocytopenia Hypomagnesemia, hypophosphatemia s/p cardiac arrest, seizure Plan No acute need for renal replacement therapy at this time but may need soon. Patient not on ACEI/ARB due to IRWIN. maintain hemodynamics stable Monitor Input/Output, daily weights and renal function with basic metabolic panel CT abdomen showed acute pancreatitis and fatty liver high dose thiamine as 200 mg q 8 and continue with folic acid MVI supplements continue with IVF supplement electrolytes hold metformin Dose meds/antibiotics for reduced GFR. Avoid fleets enema/magnesium based laxatives. Avoid nephrotoxins/NSAIDs/ iodinated contrast (unless needed emergently) Glycemic control Further work up/management as per primary team overall prognosis poor Thanks for allowing me to participate in care of your patient. Will follow patient with you. Please call if any Qs/. d/w team Dr Finn Ng Office: [phone] Chief Complaint; unable HPI: Pt is a 47 M with hx of diabetes Mellitus hypertension and chronic daily Etoh abuse presented with SOB, pain abdomen and not feeling well renal consult for IRWIN and acidosis pt unable to provide any hx no hx noted for any spurious or toxic alcohol ingestion ROS: unable Physical Examination: General Appearance: ill appearing. on 100% FiO2 Vitals reviewed and noted as below Head; Atraumatic, normocephalic ENT: intubated Neck; supple no lymphadenopathy, no thyromegaly or bruit Lungs: Increased respiratory rate/effort. Breath sounds bilateral equal and clear Heart: Increased rate. s1s2 normal. No rub or gallop. Extremities: no edema. No varicose veins Neurological: Patient is sedated Skin: Warm and dry. Normal turgor. No rash. Palpitation: Normal elasticity for age Abdomen: Abdomen is soft. Bowel sounds decreased. There is mild abdominal tenderness, no guarding/rigidity no organomegaly. distended. has rectal tube Psych: unable MSK: no joint tenderness or swelling. has clubbing : kidney or bladder not palpable Labs/imaging reviewed. Past medical history, past surgical history, family history, social history, allergy reviewed and noted as below Family hx: no hx of CKD. Rest non-contributory UA no crystals but has ketone and protein Objective - Vital Signs/Intake and Output Vital Signs (last 24 hours): Temp Pulse Resp BP Pulse Ox 100.8 F H 112 H 35 H 86/60 L 100 09/09/17 12:20 09/09/17 12:20 09/09/17 03:50 09/09/17 12:15 09/09/17 12:20 Intake and Output: 09/09/17 09/09/17 06:59 18:59 Intake Total 4345.0 319.2 Output Total 310 Balance 4035.0 319.2 - Medications Medications: Current Medications Albuterol/Ipratropium (Duoneb 3 Mg/0.5 Mg (3 Ml) Ud) 3 ml IH [id number] [facility] Budesonide (Pulmicort Respules) 0.5 mg IH [id number] [facility]IA Divalproex Sodium (Depakote Dr(*Bid*)) 1,000 mg PO BID [facility] Last Admin: 09/09/17 10:50 Dose: 1,000 mg Levetiracetam (Keppra 500mg Ivpb) 500 mg in 100 mls @ 460 mls/hr IV Q12 [facility] Last Admin: 09/09/17 10:50 Dose: 460 mls/hr Fentanyl Citrate (Fentanyl Citrate/Sodium Chloride 1 Mg/100 Ml) 1,000 mcg in 100 mls @ 2 mls/hr IV .Q24H PRN; Protocol; 20 MCG/HR PRN Reason: TITRATE PER MD ORDER Last Admin: 09/09/17 13:05 Dose: 30 mcg/hr, 3 mls/hr Propofol (Diprivan) 1,000 mg in 100 mls @ 4.082 mls/hr IV .Q24H PRN; Protocol; 10 MCG/KG/MIN PRN Reason: TITRATE PER MD ORDER Last Titration: 09/09/17 07:00 Dose: 20 mcg/kg/min, 8.165 mls/hr Thiamine HCl 200 mg/ Sodium (Chloride) 52 mls @ 104 mls/hr IV Q8 [facility] Stop: 09/11/17 14:01 Last Admin: 09/09/17 05:22 Dose: 104 mls/hr NOREPINEPHRINE BIT/0.9 % NACL (Levophed 4 Mg/ 250 Ml Ns Premixed) 4 mg in 250 mls @ 15 mls/hr IV .[id number] PRN; Protocol; 4 MCG/MIN PRN Reason: TITRATE PER MD ORDER Last Titration: 09/09/17 11:51 Dose: 6 mcg/min, 22.5 mls/hr Piperacillin Sod/Tazobactam Sod (Zosyn 2.25 Gm In 0.9% 100 Ml) 2.25 gm in 100 mls @ 100 mls/hr IV Q8 [facility] PRN Reason: Protocol Stop: 09/17/17 22:01 Last Admin: 09/09/17 13:07 Dose: 100 mls/hr Sodium Chloride (Sodium Chloride 0.9%) 1,000 mls @ 150 mls/hr IV .Q6H40M [facility] Last Admin: 09/09/17 13:08 Dose: 150 mls/hr Sodium Phosphate 30 mmole/ (Sodium Chloride) 260 mls @ 42.5 mls/hr IVPB ONCE ONE Stop: 09/09/17 18:14 Last Admin: 09/09/17 12:49 Dose: 42.5 mls/hr Insulin Human Regular (Humulin R Med) 0 units SC ACHS [facility] PRN Reason: Protocol Last Admin: 09/09/17 11:49 Dose: Not Given Vancomycin HCl (Vancocin 25 Mg/Ml (Oral Use)) 500 mg PO Q6 [facility] PRN Reason: Protocol - Labs Labs: 09/09/17 06:00 09/09/17 06:37 PT 13.0 SECONDS (9.4-12.5) H 09/08/17 09:21 INR 1.13 (0.93-1.08) H 09/08/17 09:21 APTT 33.5 Seconds (25.1-36.5) 09/08/17 09:21
--- NOTE | 2017-09-09 16:10 | CT ---
PROCEDURE: CT HEAD WITHOUT CONTRAST. HISTORY: stroke COMPARISON: None available. TECHNIQUE: Axial computed tomography images were obtained through the head/brain without intravenous contrast. Radiation dose: Total exam DLP = 999.31 mGy-cm. This CT exam was performed using one or more of the following dose reduction techniques: Automated exposure control, adjustment of the mA and/or kV according to patient size, and/or use of iterative reconstruction technique. FINDINGS: HEMORRHAGE: No intracranial hemorrhage. BRAIN: There are mild chronic microangiopathic changes. There is no mass, mass effect or abnormal extra-axial fluid collection. VENTRICLES: There is moderate age-related global parenchymal volume loss and proportionate enlargement of the ventricles and cortical sulci. CALVARIUM: Unremarkable. PARANASAL SINUSES: There is mucosal disease in the paranasal sinuses with fluid in the sphenoid sinus and left maxillary sinus, as well as in the posterior choana expected intubated patients. MASTOID AIR CELLS: Bilateral mastoid air cells are underdeveloped. OTHER FINDINGS: None. IMPRESSION: No acute intracranial abnormality. Specifically, no evidence of acute intracranial hemorrhage. If there is a persistent focal neurologic deficit and an ongoing clinical concern for acute infarction, an MRI of the brain without intravenous contrast would be a more sensitive modality for evaluation of hyperacute/acute ischemic infarction. Mild chronic microangiopathic changes and moderate age-related global parenchymal volume loss.
[2017-09-09 16:53] LABS: VENOUS BLOOD GAS BASE EXCESS -6.2 mmol/L (0.0-2.0); VENOUS BLOOD GAS PO2 56 mm/Hg (30-55); VENOUS BLOOD PH 7.33 (7.32-7.43)
[2017-09-09] MEDS: Vancomycin 25 MG/ML PO SCH ×2 (18:24→23:40)
[2017-09-09] MEDS: Albuterol-Ipratrop 3 mg / 0.5 (3 ml) UD IH SCH (19:54)
[2017-09-09] MEDS: Budesonide 0.5 mg/2 ml Inhal Susp UD IH SCH (19:54)
--- NOTE | 2017-09-09 20:02 | CON ---
DATE: 09/09/2017 The patient is in ICU 128, bed 4. CHIEF COMPLAINT: Respiratory failure x1 day. HISTORY OF PRESENT ILLNESS: This is a 47-year-old male with past medical history of alcoholism, who is admitted to the emergency room with history of diabetes and hypertension, admitted with upper respiratory symptoms and shortness of breath requiring intubation. The patient had and drinking alcohol. The patient had abdominal pain and the patient's condition deteriorated. The patient is intubated, was required. Code sepsis was called. The patient with respiratory failure and intubated on the ventilator. Infectious disease consultation requested for antibiotics. REVIEW OF SYSTEMS: Reveals the patient did have a fever of 101 on admission and in addition had abdominal pain and shortness of breath. PAST MEDICAL HISTORY: Significant for diabetes and hypertension. The patient did have seizures here. PAST SURGICAL HISTORY: Noncontributory. ALLERGIES: The patient has no known allergies. SOCIAL HISTORY: The patient is alcohol user. MEDICATIONS AT HOME: Include metformin. This is the only medication listed. PHYSICAL EXAMINATION: VITAL SIGNS: The patient is intubated on a ventilator with a temperature of 98, T-max was 101, heart rate of 120, respiratory rate on the ventilator and blood pressure is down to 86/56. HEENT: Unremarkable. ET tube is in place. NECK: Supple. LUNGS: Have decreased breath sounds. HEART: Normal S1, S2. ABDOMEN: There is tenderness. No rebound or guarding. LABORATORY DATA: Reveals a white count of 9000, hemoglobin of 13, and platelets of 69. The patient has 84% granulocytosis. Coagulation is noted. INR is 1.1. Blood gases are reviewed. Chemistries reveals a BUN of 16, creatinine is 2.5. LFTs are elevated. Alk phos is normal and the patient does have a low sodium and urinalysis is unremarkable. The patient's alcohol level is 40. Hepatitis profile is negative. Influenza is negative and microbiology is pending. The patient had a CAT scan of the abdomen and chest, and findings are concern for acute pancreatitis. No evidence of ductal dilatation, calcifications, or pseudocyst. Mild hepatomegaly with severe diffuse low attenuation of liver, represents alcoholic steatosis. CAT scan of the chest reveals the lungs to be clear. ASSESSMENT AND PLAN: This is a 47-year-old male with a history of alcoholism, diabetes, and hypertension who was admitted with: 1. Acute hypoxic respiratory failure with respiratory failure, intubated on a ventilator with systemic inflammatory response syndrome secondary to acute pancreatitis and acute kidney injury and seizures. Currently, we will treat the patient with a one dose of vancomycin and low-dose of Zosyn. This is most likely consistent with acute pancreatitis secondary to alcoholism, no evidence of infection. However, since the patient is severely and toxically ill, we will give one dose of vancomycin and continue the Zosyn for now day #2. Pending blood cultures, urine cultures, and sputum cultures and procalcitonin. If all cultures and procalcitonin are negative, we will discontinue the antibiotics and treat his pancreatitis. We will also check on the human immunodeficiency virus test. We will make further recommendations.. Overall prognosis is quite poor. Jason Oreilly MD
[2017-09-09 20:59] LABS: VENOUS BLOOD GAS PO2 41 mm/Hg (30-55); VENOUS BLOOD PH 7.35 (7.32-7.43)
--- NOTE | 2017-09-09 22:33 | CP.PCM.CON ---
History of Present Illness - History of Present Illness History of Present Illness: General Surgery Consult note- Dr. Pablo History was limited, patient is intubated on PRVC during encounter. Chart reviewed, 47M w/ pmhx of HTN, NIDDM and ETOH abuse presented to [facility] [place] [facility] ED w/ URI symptoms, cough, shortness of breath, and palpitations. Patient was noted to be in Asystole and ACLS started. 2 doses of Epinephrine were given. During compressions, patient began to have a seizure and was given Ativan 2 mg. Patient was then intubated. ROSC was achieved. PRVC 100 8 12 400. sedated on versed and propofol. PMH: as above PSH: unknown ALL:NKDA SocialHx: drinks ETOH, denies drug abuse Review of Systems - Review of Systems All systems: reviewed and no additional remarkable complaints except - Constitutional Constitutional: As Per HPI Past Patient History - Infectious Disease Hx of Infectious Diseases: None - Past Social History Smoking Status: Light Smoker < 10 Cigarettes Daily - CARDIAC Hx Hypertension: Yes - NEUROLOGICAL Hx Seizures: Yes - ENDOCRINE/METABOLIC Hx Diabetes Mellitus Type 2: Yes - INTEGUMENTARY Other/Comment: dry scaley hard skin to both feet toes, dry skin to legs, thick toenails both feet - MUSCULOSKELETAL/RHEUMATOLOGICAL Hx Falls: No - PSYCHIATRIC Hx Substance Use: No - SURGICAL HISTORY Hx Surgeries: No Meds Allergies/Adverse Reactions: Allergies Allergy/AdvReac Type Severity Reaction Status Date / Time No Known Allergies Allergy Verified 09/08/17 09:10 - Medications Medications: Current Medications Albuterol/Ipratropium (Duoneb 3 Mg/0.5 Mg (3 Ml) Ud) 3 ml IH [id number] [facility] Last Admin: 09/09/17 19:54 Dose: 3 ml Budesonide (Pulmicort Respules) 0.5 mg IH [id number] [facility] Last Admin: 09/09/17 19:54 Dose: 0.5 mg Divalproex Sodium (Depakoliang Dr(*Bid*)) 1,000 mg PO BID [facility] Last Admin: 09/09/17 17:33 Dose: 1,000 mg Levetiracetam (Keppra 500mg Ivpb) 500 mg in 100 mls @ 460 mls/hr IV Q12 [facility] Last Admin: 09/09/17 21:20 Dose: 460 mls/hr Fentanyl Citrate (Fentanyl Citrate/Sodium Chloride 1 Mg/100 Ml) 1,000 mcg in 100 mls @ 2 mls/hr IV .Q24H PRN; Protocol; 20 MCG/HR PRN Reason: TITRATE PER MD ORDER Last Titration: 09/09/17 15:00 Dose: 35 mcg/hr, 3.5 mls/hr Propofol (Diprivan) 1,000 mg in 100 mls @ 4.082 mls/hr IV .Q24H PRN; Protocol; 10 MCG/KG/MIN PRN Reason: TITRATE PER MD ORDER Last Admin: 09/09/17 16:32 Dose: 35 mcg/kg/min, 14.288 mls/hr Thiamine HCl 200 mg/ Sodium (Chloride) 52 mls @ 104 mls/hr IV Q8 [facility] Stop: 09/11/17 14:01 Last Admin: 09/09/17 21:49 Dose: 104 mls/hr NOREPINEPHRINE BIT/0.9 % NACL (Levophed 4 Mg/ 250 Ml Ns Premixed) 4 mg in 250 mls @ 15 mls/hr IV .[id number] PRN; Protocol; 4 MCG/MIN PRN Reason: TITRATE PER MD ORDER Last Admin: 09/09/17 19:03 Dose: 10 mcg/min, 37.5 mls/hr Piperacillin Sod/Tazobactam Sod (Zosyn 2.25 Gm In 0.9% 100 Ml) 2.25 gm in 100 mls @ 100 mls/hr IV Q8 [facility] PRN Reason: Protocol Stop: 09/17/17 22:01 Last Admin: 09/09/17 21:51 Dose: 100 mls/hr Sodium Chloride (Sodium Chloride 0.9%) 1,000 mls @ 150 mls/hr IV .Q6H40M [facility] Last Admin: 09/09/17 22:13 Dose: 150 mls/hr Insulin Human Regular (Humulin R Med) 0 units SC ACHS [facility] PRN Reason: Protocol Last Admin: 09/09/17 21:29 Dose: Not Given Vancomycin HCl (Vancocin 25 Mg/Ml (Oral Use)) 500 mg PO Q6 [facility] PRN Reason: Protocol Last Admin: 09/09/17 18:24 Dose: 500 mg Physical Exam - Constitutional Appears: Chronically Ill Additional comments: intubated on ventilator - Head Exam Head Exam: ATRAUMATIC - Eye Exam Additional comments: pupils sluggish - ENT Exam ENT Exam: Mucous Membranes Moist - Respiratory Exam Respiratory Exam: NORMAL BREATHING PATTERN. absent: Wheezes Additional comments: intubated on PRVC - Cardiovascular Exam Cardiovascular Exam: +S1, +S2. absent: Bradycardia, Tachycardia - GI/Abdominal Exam GI & Abdominal Exam: Distended, Soft. absent: Firm, Guarding, Rebound, Rigid, Tenderness Additional comments: mildly distended, tympanic - Extremities Exam Extremities exam: Positive for: normal inspection. Negative for: calf tenderness - Neurological Exam Neurological exam: Altered - Skin Skin Exam: Intact, Warm Results - Vital Signs Recent Vital Signs: Last Vital Signs Temp 100.4 F H 09/09/17 21:20 Pulse 112 H 09/09/17 21:20 Resp 33 H 09/09/17 16:10 BP 111/77 09/09/17 21:15 Pulse Ox 97 09/09/17 21:20 - Labs Result Diagrams: 09/09/17 06:00 09/09/17 06:37 Labs: Laboratory Results - last 24 hr 09/08/17 09/08/17 09/08/17 19:55 20:00 20:10 WBC RBC Hgb Hct MCV MCH MCHC RDW Plt Count Manual Plt Count pCO2 23 L pO2 79.0 L HCO3 16.4 L ABG pH 7.46 H ABG Total CO2 17.1 L ABG O2 Saturation 98.4 H ABG O2 Content ABG Base Excess 5.5 H ABG Hemoglobin ABG Carboxyhemoglobin POC ABG HHb (Measured) ABG Methemoglobin ABG O2 Capacity VBG pH VBG pCO2 VBG HCO3 VBG Total CO2 VBG O2 Sat (Calc) VBG Base Excess VBG Potassium Hgb O2 Saturation Sodium Chloride 92.0 L Glucose 215 H Lactate 8.2 H* FiO2 Potassium Carbon Dioxide Anion Gap BUN Creatinine Est GFR ( Amer) Est GFR (Non-Af Amer) POC Glucose (mg/dL) Random Glucose Calcium Phosphorus Total Bilirubin AST ALT Alkaline Phosphatase Ammonia Total Protein Albumin Globulin Albumin/Globulin Ratio Procalcitonin 1.60 H Venous Blood Potassium Stool Occult Blood Ur L.pneumophila Ag Negative Blood Type Blood Type Confirm Antibody Screen BBK History Checked 09/09/17 09/09/17 09/09/17 00:00 04:54 06:00 WBC 6.4 D RBC 3.31 L Hgb 10.5 L Hct 31.0 L MCV 93.7 MCH 31.7 MCHC 33.9 RDW 13.7 Plt Count 23 L* Manual Plt Count pCO2 36 pO2 40 64.0 L HCO3 18.5 L ABG pH 7.32 L ABG Total CO2 19.6 L ABG O2 Saturation 94.1 L ABG O2 Content 14.0 L ABG Base Excess -6.9 L ABG Hemoglobin 10.8 L ABG Carboxyhemoglobin 1.7 H POC ABG HHb (Measured) 5.7 H ABG Methemoglobin 0.9 ABG O2 Capacity 14.9 L VBG pH 7.34 VBG pCO2 40.0 VBG HCO3 21.6 VBG Total CO2 22.8 VBG O2 Sat (Calc) 80.2 H VBG Base Excess -3.9 L VBG Potassium 3.3 L Hgb O2 Saturation 91.7 L Sodium 134.0 Chloride 94.0 L Glucose 232 H Lactate 4.6 H* FiO2 21.0 100.0 Potassium Carbon Dioxide Anion Gap BUN Creatinine Est GFR ( Amer) Est GFR (Non-Af Amer) POC Glucose (mg/dL) Random Glucose Calcium Phosphorus Total Bilirubin AST ALT Alkaline Phosphatase Ammonia Total Protein Albumin Globulin Albumin/Globulin Ratio Procalcitonin Venous Blood Potassium 3.3 L Stool Occult Blood Ur L.pneumophila Ag Blood Type Blood Type Confirm Antibody Screen BBK History Checked 09/09/17 09/09/17 09/09/17 06:37 06:37 07:07 WBC RBC Hgb Hct MCV MCH MCHC RDW Plt Count Manual Plt Count pCO2 pO2 50 HCO3 ABG pH ABG Total CO2 ABG O2 Saturation ABG O2 Content ABG Base Excess ABG Hemoglobin ABG Carboxyhemoglobin POC ABG HHb (Measured) ABG Methemoglobin ABG O2 Capacity VBG pH 7.31 L VBG pCO2 43.0 VBG HCO3 21.7 VBG Total CO2 23.0 VBG O2 Sat (Calc) 87.0 H VBG Base Excess -4.5 L VBG Potassium 4.1 Hgb O2 Saturation Sodium 135 136.0 Chloride 97 L 99.0 Glucose 219 H Lactate 4.1 H* FiO2 21.0 Potassium 4.1 Carbon Dioxide 20 L Anion Gap 22 H BUN 19 Creatinine 2.5 H Est GFR ( Amer) 33 Est GFR (Non-Af Amer) 28 POC Glucose (mg/dL) 203 H Random Glucose 203 H Calcium 8.1 L Phosphorus 1.0 L* Total Bilirubin 2.7 H AST > 750 H D ALT 173 H Alkaline Phosphatase 85 Ammonia Total Protein 5.7 L Albumin 3.1 Globulin 2.6 Albumin/Globulin Ratio 1.2 Procalcitonin Venous Blood Potassium 4.1 Stool Occult Blood Ur L.pneumophila Ag Blood Type Blood Type Confirm Antibody Screen BBK History Checked 09/09/17 09/09/17 09/09/17 09:30 10:29 10:59 WBC RBC Hgb Hct MCV MCH MCHC RDW Plt Count Manual Plt Count 27 L* pCO2 pO2 HCO3 ABG pH ABG Total CO2 ABG O2 Saturation ABG O2 Content ABG Base Excess ABG Hemoglobin ABG Carboxyhemoglobin POC ABG HHb (Measured) ABG Methemoglobin ABG O2 Capacity VBG pH VBG pCO2 VBG HCO3 VBG Total CO2 VBG O2 Sat (Calc) VBG Base Excess VBG Potassium Hgb O2 Saturation Sodium Chloride Glucose Lactate FiO2 Potassium Carbon Dioxide Anion Gap BUN Creatinine Est GFR ( Amer) Est GFR (Non-Af Amer) POC Glucose (mg/dL) 215 H Random Glucose Calcium Phosphorus Total Bilirubin AST ALT Alkaline Phosphatase Ammonia Total Protein Albumin Globulin Albumin/Globulin Ratio Procalcitonin Venous Blood Potassium Stool Occult Blood Positive H Ur L.pneumophila Ag Blood Type Blood Type Confirm Antibody Screen BBK History Checked 09/09/17 09/09/17 09/09/17 11:30 11:30 11:30 WBC RBC Hgb Hct MCV MCH MCHC RDW Plt Count Manual Plt Count pCO2 pO2 53 HCO3 ABG pH ABG Total CO2 ABG O2 Saturation ABG O2 Content ABG Base Excess ABG Hemoglobin ABG Carboxyhemoglobin POC ABG HHb (Measured) ABG Methemoglobin ABG O2 Capacity VBG pH 7.34 VBG pCO2 41.0 VBG HCO3 22.1 VBG Total CO2 23.4 VBG O2 Sat (Calc) 88.1 H VBG Base Excess -3.5 L VBG Potassium 4.0 Hgb O2 Saturation Sodium 137.0 Chloride 102.0 Glucose 208 H Lactate 4.1 H* FiO2 21.0 Potassium Carbon Dioxide Anion Gap BUN Creatinine Est GFR ( Amer) Est GFR (Non-Af Amer) POC Glucose (mg/dL) Random Glucose Calcium Phosphorus Total Bilirubin AST ALT Alkaline Phosphatase Ammonia 12 Total Protein Albumin Globulin Albumin/Globulin Ratio Procalcitonin Venous Blood Potassium 4.0 Stool Occult Blood Ur L.pneumophila Ag Blood Type O POSITIVE Blood Type Confirm Antibody Screen Negative BBK History Checked No verified bt 09/09/17 09/09/17 09/09/17 12:17 16:20 16:25 WBC RBC Hgb Hct MCV MCH MCHC RDW Plt Count Manual Plt Count pCO2 pO2 56 H HCO3 ABG pH ABG Total CO2 ABG O2 Saturation ABG O2 Content ABG Base Excess ABG Hemoglobin ABG Carboxyhemoglobin POC ABG HHb (Measured) ABG Methemoglobin ABG O2 Capacity VBG pH 7.33 VBG pCO2 36.0 L VBG HCO3 19.0 L VBG Total CO2 20.1 L VBG O2 Sat (Calc) 91.5 H VBG Base Excess -6.2 L VBG Potassium 4.2 Hgb O2 Saturation Sodium 138.0 Chloride 103.0 Glucose 187 H Lactate 3.9 H FiO2 21.0 Potassium Carbon Dioxide Anion Gap BUN Creatinine Est GFR ( Amer) Est GFR (Non-Af Amer) POC Glucose (mg/dL) 192 H Random Glucose Calcium Phosphorus Total Bilirubin AST ALT Alkaline Phosphatase Ammonia Total Protein Albumin Globulin Albumin/Globulin Ratio Procalcitonin Venous Blood Potassium 4.2 Stool Occult Blood Ur L.pneumophila Ag Blood Type Blood Type Confirm O POSITIVE Antibody Screen BBK History Checked 09/09/17 09/09/17 20:30 21:10 WBC RBC Hgb Hct MCV MCH MCHC RDW Plt Count Manual Plt Count pCO2 pO2 41 HCO3 ABG pH ABG Total CO2 ABG O2 Saturation ABG O2 Content ABG Base Excess ABG Hemoglobin ABG Carboxyhemoglobin POC ABG HHb (Measured) ABG Methemoglobin ABG O2 Capacity VBG pH 7.35 VBG pCO2 34.0 L VBG HCO3 18.8 L VBG Total CO2 19.8 L VBG O2 Sat (Calc) 80.8 H VBG Base Excess -6.0 L VBG Potassium 3.8 Hgb O2 Saturation Sodium 140.0 Chloride 105.0 Glucose 182 H Lactate 3.5 H FiO2 21.0 Potassium Carbon Dioxide Anion Gap BUN Creatinine Est GFR ( Amer) Est GFR (Non-Af Amer) POC Glucose (mg/dL) 173 H Random Glucose Calcium Phosphorus Total Bilirubin AST ALT Alkaline Phosphatase Ammonia Total Protein Albumin Globulin Albumin/Globulin Ratio Procalcitonin Venous Blood Potassium 3.8 Stool Occult Blood Ur L.pneumophila Ag Blood Type Blood Type Confirm Antibody Screen BBK History Checked Assessment & Plan - Assessment and Plan (Free Text) Assessment: 47M s/p code blue w/ ROSC, currently intubated on PRVC w/ pancreatitis most likely 2/2 ETOH use Plan: - siwa protocol - f/u AM labs - aggressive IVF hydration - pain control PRN - strict I/O - thrombocytopenia- transfuse PLT prn - recommend GB US to r/o gallstone as possible cause of pancreatitis - medical management per Primary and ICU - no acute surgical intervention at this time - will follow for now - further recs per Dr. Pablo surgical attending John Arcos PGY1
[2017-09-10] MEDS: Propofol 10 mg/ml 1,000 MG/100 ML VIAL IV PRN ×5 (00:23→21:37)
[2017-09-10] MEDS: Albuterol-Ipratrop 3 mg / 0.5 (3 ml) UD IH SCH ×2 (02:03→07:58)
--- NOTE | 2017-09-10 02:18 | CON ---
DATE: GASTROENTEROLOGY CONSULTATION REQUESTING PHYSICIAN: Tatum Machado MD REASON FOR CONSULTATION: I have been asked to see this 47-year-old male admitted to the hospital yesterday for acute pancreatitis. The patient is an alcoholic with a history of diabetes mellitus and hypertension coming to the hospital with cough, palpitation, shortness of breath and feeling ill. HISTORY OF PRESENT ILLNESS: In the Emergency Room, the patient had a generalized seizure followed by a cardiac arrest. CPR was administered in the hospital, the patient was intubated and successfully resuscitated. The patient remains intubated on Levophed and hypotensive and unable to give any history. History is obtained from the chart. Routine blood work on admission to the hospital shows markedly elevated amylase and lipase, with elevated blood alcohol level at 40. PAST MEDICAL HISTORY: As above. Again, he has a history of alcoholism, diabetes mellitus, and hypertension. SOCIAL HISTORY: He has a longstanding history of alcohol use. FAMILY HISTORY: Noncontributory. REVIEW OF SYSTEMS: A 14-point review of systems is unobtainable. MEDICATIONS AT HOME: Include metformin 1000 mg twice a day. PHYSICAL EXAMINATION: GENERAL: A middle-aged male lying in bed, intubated on Levophed, response to painful stimuli. VITAL SIGNS: Reveal temperature of 100.8, blood pressure of 86/60 on Levophed, and heart rate of 112. HEENT: Reveals an endotracheal tube in his mouth. Sclerae are icteric. Conjunctivae are pale. NECK: Supple. CHEST: Reveals distant breath sounds. CARDIOVASCULAR: Heart exam reveals a tachycardia. GASTROINTESTINAL: Abdomen is soft, nontender, and no mass. EXTREMITIES: Show no edema. RECTAL: He has a rectal tube in and draining liquid stool. LABORATORY DATA: Revealed white blood cell count of 6.3, hemoglobin of 10.5, [place] [address]. Electrolytes showed normal potassium, BUN of 19, creatinine of 2.5, AST greater than 750, ALT of 173, alkaline phosphatase of 85, and total bilirubin of 2.7. Serum amylase and lipase on admission to the hospital was 495 and 13,765. IMPRESSION: 1. Acute pancreatitis secondary to alcohol abuse. 2. Status post cardiac arrest. 3. Sepsis. 4. Respiratory failure. 5. Seizure disorder. His prognosis is extremely poor. RECOMMENDATIONS 1. Continue n.p.o. 2. Continue IV fluids at 150 mL an hour. 3. Continue blood pressure support. 4. Continue broad-spectrum antibiotics, which currently include Zosyn 4.5 grams IV q. 8 hours. as well as vancomycin which was given as a 1 gram stat dose. Bob Borden MD
[2017-09-10] MEDS: NOREPINEPHRINE BIT/0.9 % NACL 4 MG/250 ML BAG IV PRN (02:25)
[2017-09-10 04:28] LABS: VENOUS BLOOD GAS BASE EXCESS -7.9 mmol/L (0.0-2.0); VENOUS BLOOD GAS PO2 68 mm/Hg (30-55)
[2017-09-10 04:49] LABS: ALB/GLOB RATIO 1.1 (1.1-1.8); ALBUMIN 2.9 g/dL (3.0-4.8); CALCIUM 7.7 mg/dL (8.4-10.5)
[2017-09-10] MEDS: Sodium Chloride 0.9% 1,000 ML IV SCH (04:57)
[2017-09-10] MEDS: Vancomycin 25 MG/ML PO SCH ×3 (05:16→16:59)
[2017-09-10 05:29] LABS: ARTERIAL BLOOD GAS HCO3 14.2 mmol/L (21-28); ARTERIAL BLOOD GAS HEMOGLOBIN 8.5 g/dL (11.7-17.4); ARTERIAL BLOOD GAS O2 CAPACITY 11.9 mL/dl (16-24); ARTERIAL BLOOD GAS O2 CONTENT 11.9 ML/dl (15-23); ARTERIAL BLOOD GAS O2 SAT 99.6 % (95-98); ARTERIAL BLOOD GAS PCO2 27 mm/Hg (35-45); ARTERIAL BLOOD GAS PH 7.33 (7.35-7.45)
[2017-09-10] MEDS: Piperacillin/Tazobact 2.25gm 2.25 GM/100 ML BAG IV SCH ×2 (05:29→14:26)
--- NOTE | 2017-09-10 06:32 | CP.PCM.PN ---
Subjective - Date & Time of Evaluation Date of Evaluation: 09/10/17 Time of Evaluation: 06:27 - Subjective Subjective: Mr Aguero was seen and examined at the bedside in ICU. He remains on mechanical ventilator on a PRVC mode with Propofol and fentanyl as sedation. He is easily gets agitated and restless with GCS-4T. He has bilateral wrist restraints. His pupils are 2 mm very sluggish to react . CT of the head 09/08/2017 showed no acute intracranial abnormality, specifically no evidence of acute intracranial hemorrhage.. Mild chronic microangiopathic changes and moderate age related global parenchymal volume loss. There was no untoward events overnight. Objective - Vital Signs/Intake and Output Vital Signs (last 24 hours): Temp Pulse Resp BP Pulse Ox 100.0 F H 114 H 33 H 112/80 97 09/10/17 01:10 09/10/17 01:10 09/09/17 16:10 09/10/17 01:00 09/10/17 01:10 Intake and Output: 09/09/17 09/10/17 18:59 06:59 Intake Total 3435.0 709 Output Total 600 Balance 2835.0 709 - Medications Medications: Current Medications Albuterol/Ipratropium (Duoneb 3 Mg/0.5 Mg (3 Ml) Ud) 3 ml IH [id number] [facility] Last Admin: 09/10/17 02:03 Dose: 3 ml Budesonide (Pulmicort Respules) 0.5 mg IH [id number] [facility] Last Admin: 09/09/17 19:54 Dose: 0.5 mg Divalproex Sodium (Depakote Dr(*Bid*)) 1,000 mg PO BID [facility] Last Admin: 09/09/17 17:33 Dose: 1,000 mg Levetiracetam (Keppra 500mg Ivpb) 500 mg in 100 mls @ 460 mls/hr IV Q12 [facility] Last Admin: 09/09/17 21:20 Dose: 460 mls/hr Fentanyl Citrate (Fentanyl Citrate/Sodium Chloride 1 Mg/100 Ml) 1,000 mcg in 100 mls @ 2 mls/hr IV .Q24H PRN; Protocol; 20 MCG/HR PRN Reason: TITRATE PER MD ORDER Last Titration: 09/10/17 02:04 Dose: 40 mcg/hr, 4 mls/hr Propofol (Diprivan) 1,000 mg in 100 mls @ 4.082 mls/hr IV .Q24H PRN; Protocol; 10 MCG/KG/MIN PRN Reason: TITRATE PER MD ORDER Last Admin: 09/10/17 05:43 Dose: 35 mcg/kg/min, 14.288 mls/hr Thiamine HCl 200 mg/ Sodium (Chloride) 52 mls @ 104 mls/hr IV Q8 [facility] Stop: 09/11/17 14:01 Last Admin: 09/10/17 05:31 Dose: 104 mls/hr NOREPINEPHRINE BIT/0.9 % NACL (Levophed 4 Mg/ 250 Ml Ns Premixed) 4 mg in 250 mls @ 15 mls/hr IV .[id number] PRN; Protocol; 4 MCG/MIN PRN Reason: TITRATE PER MD ORDER Last Titration: 09/10/17 05:11 Dose: 3 mcg/min, 11.25 mls/hr Piperacillin Sod/Tazobactam Sod (Zosyn 2.25 Gm In 0.9% 100 Ml) 2.25 gm in 100 mls @ 100 mls/hr IV Q8 [facility] PRN Reason: Protocol Stop: 09/17/17 22:01 Last Admin: 09/10/17 05:29 Dose: 100 mls/hr Sodium Chloride (Sodium Chloride 0.9%) 1,000 mls @ 150 mls/hr IV .Q6H40M [facility] Last Admin: 09/10/17 04:57 Dose: 150 mls/hr Insulin Human Regular (Humulin R Med) 0 units SC ACHS [facility] PRN Reason: Protocol Last Admin: 09/09/17 21:29 Dose: Not Given Vancomycin HCl (Vancocin 25 Mg/Ml (Oral Use)) 500 mg PO Q6 [facility] PRN Reason: Protocol Last Admin: 09/10/17 05:16 Dose: 500 mg - Labs Labs: 09/09/17 06:00 09/10/17 03:30 PT 13.0 SECONDS (9.4-12.5) H 09/08/17 09:21 INR 1.13 (0.93-1.08) H 09/08/17 09:21 APTT 33.5 Seconds (25.1-36.5) 09/08/17 09:21 - Constitutional Appears: No Acute Distress - Head Exam Head Exam: NORMAL INSPECTION - Eye Exam Pupil Exam: Miosis Additional comments: exopthalmic - Neurological Exam Neurological Exam: Awake Neuro motor strength exam: Left Upper Extremity: 4, Right Upper Extremity: 4, Left Lower Extremity: 4, Right Lower Extremity: 4 Additional comments: GCS- 4T, restless Assessment and Plan (1) Seizure Assessment & Plan: Case discussed with Dr. Reynolds, continue all current medical regimen including AED. Follow up EEG. Due to patient elevated liver enzymes, will discontinue depakote and increase keppra to 1000 mg IVPB Q 12. Status: Acute
[2017-09-10] MEDS: Budesonide 0.5 mg/2 ml Inhal Susp UD IH SCH ×2 (07:58→19:32)
--- NOTE | 2017-09-10 07:58 | CP.PCM.PN ---
Subjective - Date & Time of Evaluation Date of Evaluation: 09/10/17 Time of Evaluation: 07:45 - Subjective Subjective: General Surgery Progress Note for Dr. Pablo Patient seen and examined at bedside. Patient is intubated on PRVC mode with ventilator setttings of Vt:400, FiO2-100%, Rate-16, PEEP-8. GCS score of 7. Patient opens eye to sternal rub, no verbal response, and withdraws from painful stimuli. Nurse reports no events overnight. Objective - Vital Signs/Intake and Output Vital Signs (last 24 hours): Temp Pulse Resp BP Pulse Ox 99.7 F H 132 H 33 H 115/67 97 09/10/17 06:50 09/10/17 06:50 09/09/17 16:10 09/10/17 06:45 09/10/17 06:50 Intake and Output: 09/10/17 09/10/17 06:59 18:59 Intake Total 3515 Output Total 900 Balance 2615 - Medications Medications: Current Medications Albuterol/Ipratropium (Duoneb 3 Mg/0.5 Mg (3 Ml) Ud) 3 ml IH [id number] [facility] Last Admin: 09/10/17 02:03 Dose: 3 ml Budesonide (Pulmicort Respules) 0.5 mg IH [id number] [facility] Last Admin: 09/09/17 19:54 Dose: 0.5 mg Fentanyl Citrate (Fentanyl Citrate/Sodium Chloride 1 Mg/100 Ml) 1,000 mcg in 100 mls @ 2 mls/hr IV .Q24H PRN; Protocol; 20 MCG/HR PRN Reason: TITRATE PER MD ORDER Last Titration: 09/10/17 02:04 Dose: 40 mcg/hr, 4 mls/hr Propofol (Diprivan) 1,000 mg in 100 mls @ 4.082 mls/hr IV .Q24H PRN; Protocol; 10 MCG/KG/MIN PRN Reason: TITRATE PER MD ORDER Last Admin: 09/10/17 05:43 Dose: 35 mcg/kg/min, 14.288 mls/hr Thiamine HCl 200 mg/ Sodium (Chloride) 52 mls @ 104 mls/hr IV Q8 [facility] Stop: 09/11/17 14:01 Last Admin: 09/10/17 05:31 Dose: 104 mls/hr NOREPINEPHRINE BIT/0.9 % NACL (Levophed 4 Mg/ 250 Ml Ns Premixed) 4 mg in 250 mls @ 15 mls/hr IV .[id number] PRN; Protocol; 4 MCG/MIN PRN Reason: TITRATE PER MD ORDER Last Titration: 09/10/17 05:11 Dose: 3 mcg/min, 11.25 mls/hr Piperacillin Sod/Tazobactam Sod (Zosyn 2.25 Gm In 0.9% 100 Ml) 2.25 gm in 100 mls @ 100 mls/hr IV Q8 [facility] PRN Reason: Protocol Stop: 09/17/17 22:01 Last Admin: 09/10/17 05:29 Dose: 100 mls/hr Sodium Chloride (Sodium Chloride 0.9%) 1,000 mls @ 150 mls/hr IV .Q6H40M [facility] Last Admin: 09/10/17 04:57 Dose: 150 mls/hr Levetiracetam 1,000 mg/ Sodium (Chloride) 110 mls @ 460 mls/hr IV Q12 [facility] Insulin Human Regular (Humulin R Med) 0 units SC ACHS [facility] PRN Reason: Protocol Last Admin: 09/09/17 21:29 Dose: Not Given Vancomycin HCl (Vancocin 25 Mg/Ml (Oral Use)) 500 mg PO Q6 [facility] PRN Reason: Protocol Last Admin: 09/10/17 05:16 Dose: 500 mg - Labs Labs: 09/09/17 06:00 09/10/17 03:30 PT 13.0 SECONDS (9.4-12.5) H 09/08/17 09:21 INR 1.13 (0.93-1.08) H 09/08/17 09:21 APTT 33.5 Seconds (25.1-36.5) 09/08/17 09:21 - Constitutional Appears: In Acute Distress - Head Exam Head Exam: ATRAUMATIC, NORMOCEPHALIC - Eye Exam Eye Exam: Scleral icterus - Neck Exam Neck Exam: Normal Inspection - Respiratory Exam Respiratory Exam: Decreased Breath Sounds Additional comments: distant breath sounds - Cardiovascular Exam Cardiovascular Exam: Tachycardia - GI/Abdominal Exam GI & Abdominal Exam: Soft, Tenderness - Neurological Exam Additional comments: Patient is sedated and intubated; opens eyes to painful stimuli, withdraws from painful stimuli - Skin Skin Exam: Warm Assessment and Plan - Assessment and Plan (Free Text) Assessment: 47 year old male with a past medical history of diabetes, hypertension, and alcoholism who presented to [facility] with complaints of malaise, palpitations, and cough and was found to have an acute pancreatitis. He developed seizures and cardiac arrest and obtained ROSC. Currently, the patient is on ventilator with MODS and surgery was consulted for pancreatitis and abdominal distension. Plan: No surgical intervention planned at this time Continue with medical management Case disccused with attending, Dr. Pablo
[2017-09-10] MEDS ORDERED: Potassium Chloride 40 mEq/30 ml LIQ UD PO ONE (08:04)
--- NOTE | 2017-09-10 08:47 | RAD ---
HISTORY: Intubated COMPARISON: 09/09/2017. FINDINGS: The endotracheal tube terminates 2.2 cm proximal to the emmanuelle. The nasogastric tube terminates in the distal esophagus. The right IJV line terminates in the SVC. LUNGS: There is interval development of consolidation in the right upper lobe and left perihilar region. PLEURA: No significant pleural effusion identified, no pneumothorax apparent. CARDIOVASCULAR: Normal. OSSEOUS STRUCTURES: No significant abnormalities. VISUALIZED UPPER ABDOMEN: Normal. OTHER FINDINGS: None. IMPRESSION: 1. Nasogastric tube remains in the distal esophagus, repositioning is recommended. 2. Interval development of right upper lobe and left perihilar pneumonia. Follow-up is advised.
--- NOTE | 2017-09-10 08:52 | US ---
HISTORY: Leg pain and swelling. Evaluate for DVT PHYSICIAN(S): Grant Esteban MD. TECHNIQUE: Duplex sonography and color-flow Doppler with graded compression were used to evaluate the deep venous systems of both lower extremities. FINDINGS: The visualized deep venous systems of both lower extremities are sonographically normal and compressible. Normal wave forms and augmentation are seen. There is no sonographic evidence for deep venous thrombosis in the visualized segments of both lower extremities. IMPRESSION: No sonographic evidence for deep venous thrombosis in the visualized segments of both lower extremities.
--- NOTE | 2017-09-10 09:10 | CON ---
DATE: 09/08/2017 REQUESTING PHYSICIAN: Yogi Fernandez MD CHIEF COMPLAINT: The patient presented with shortness of breath and had some cough and palpitations, also complaints of abdominal pain over the last night prior to admission. The patient was being transferred to the intensive care unit and had a CPR cardiac arrest. HISTORY OF PRESENT ILLNESS: The patient is a 47-year-old male with a history of diabetes, alcoholism, and hypertension. The patient presented to the emergency room with shortness of breath, cough, palpitations, and feeling weak with abdominal pain for approximately 12 hours prior to coming to the emergency room. The patient stated that his last drink of alcohol was approximately a day ago. While being examined in the ER, the patient did vomit and was taken to CT scan for abdominal evaluation of a distended abdomen and abdominal discomfort. The patient was being transferred from the emergency room to the intensive care unit. The patient went flatline and lost his pulses and had cardiac arrest. CPR was done, and the patient was given 2 amps of bicarb as well as several amps of epinephrine. He responded and at this point the patient is hemodynamically stable on no pressors, but tachycardic. He is on ventilator support with FiO2 of 100%. The patient is getting bicarb drip as well as propofol and consults have been called for Infectious Disease, Renal, GI, and Neuro. Note that the patient in the ER as well as during the code and post code had episodes of seizure activity. PAST MEDICAL HISTORY: As above. ALLERGIES: HE HAS NO KNOWN ALLERGIES. CURRENT MEDICATIONS: Can be evaluated as per the nurse's intake form. SOCIAL HISTORY The patient does drink alcohol and has a history of EtOH abuse, unable to assess for drug abuse or for smoking. REVIEW OF SYSTEMS: Unable to assess. PHYSICAL EXAMINATION: VITAL SIGNS: Note that his heart rate is 140, BP is 145/90, respirations are 18, and his temperature is 99.8. HEENT: Head is atraumatic, normocephalic. Eyes reactive to light. Ears, nose, and throat seem to be within normal limits. NECK: Supple. No JVD. No thyroid enlargement. No lymph nodes. HEART: Regular rate and rhythm. Normal S1, S2, but tachycardic. LUNGS: Reveal bilateral rhonchi. ABDOMEN: Distended but easily palpated. Decreased bowel sounds. GENITALIA/RECTAL: Deferred. MUSCULOSKELETAL: No joint deformities. EXTREMITIES: Reveal trace lower extremity edema. NEUROLOGICAL: The patient is unresponsive on the ventilator at this time. LABORATORY DATA: As far as laboratories, his white count is 9.9, hemoglobin is 13.8, hematocrit 40.9, with platelets of 69,000. His sodium is 130, potassium 3.0, chloride 84, CO2 of 7, BUN of 16, creatinine of 2.0, and a glucose of 194. The patient had a ABG in the emergency room angiogram revealed a pH of 7.16. The patient's lactate is 5.1. His alcohol quantitative was 40 which is elevated. As far as his x-rays, chest x-ray reveals no significant infiltrates and CT of the abdomen and pelvis as well as chest reveals acute pancreatitis, mild hepatomegaly, severe diffuse low attenuation of the liver, rule out alcohol steatosis and/or, however, it could be acute hepatitis. IMPRESSION: This patient has dehydration and severe metabolic acidosis with tachycardia. He has a history of EtOH abuse and noted liver disease with jaundice. The patient possibly could have acute hepatitis or this could be EtOH fatty liver. As stated above, from the patient's history of alcohol abuse and diabetes, he presents with possible alcoholic ketoacidosis and possible sepsis and there may be a component of diabetes ketoacidosis as well. The patient has hypokalemia, hyponatremia, renal insufficiency, severe metabolic acidosis with anion gap of 42 and a CO2 of 7. The patient has a lactic acid of 7.1 and is noted to have EtOH abuse, so delirium tremens as a possibility as well. The patient has severely new onset seizures and had cardiac arrest requiring cardiopulmonary resuscitation. He has respiratory failure requiring ventilator support and as stated above, rule out hepatitis and has noted acute pancreatitis and fatty liver. PLAN: We have consulted Infectious Disease, Renal, GI and Neuro and the patient is on the ventilator with FIO2 of 100%. We will follow his chest x-ray and arterial blood gas closely. We will continue the bicarb drip and IV support and follow his labs and correct as needed. The patient is on propofol for sedation, and we will continue with vitamin B1, thiamine and start the patient on Zosyn. We will replace his potassium and magnesium and follow up closely and treat aggressively along with the other consultants and the primary care doctor. Gabe Mcdowell MD
--- NOTE | 2017-09-10 09:17 | PN ---
DATE: 09/09/2017 INFORMATION SYSTEMS MANAGER NOTE SUBJECTIVE: The patient is resting on the vent. He is sedated with Diprivan and fentanyl and at this time the Levophed has been weaned off. The patient is on FiO2 of 100% and O2 saturations are stable. PHYSICAL EXAMINATION: VITAL SIGNS: His temperature is 98.4, his pulse is 116, respirations are 18 and BP is 106/77. SKIN: Warm and dry. HEENT: Head: Atraumatic, normocephalic. Eyes reactive to light. Ears, nose and throat seem to be within normal limits. NECK: Supple. No JVD. No thyroid enlargement or lymph nodes. HEART: Has regular rate and rhythm. Normal S1, S2 but tachycardic. LUNGS: Reveal bilateral rhonchi. ABDOMEN: Distended, slightly tympanitic with little to no bowel sounds. GENITALIA: Deferred. RECTAL: Deferred. MUSCULOSKELETAL: No joint deformities. EXTREMITIES: Reveal trace lower extremity edema. NEUROLOGIC: The patient is sedated on the ventilator. LABORATORY DATA: Sodium is 135, potassium 4.1, chloride 97, CO2 of 20 with a BUN of 19, creatinine of 2.5 and glucose of 203. The patient's white count is 4.6, hemoglobin is 9.8 with hematocrit 29.2 and platelets of 30,000. The patient's arterial blood gas reveals pH of 7.32, pCO2 of 36, pO2 of 64 on 100% FiO2 on the ventilator. The patient's lactate is 4.1. Chest x-ray reveals slight bilateral congestion, but no dense infiltrates, this is unofficial reading. IMPRESSION: This patient has respiratory failure requiring ventilator support. He is status post cardiac arrest with CPR. He has acute pancreatitis and fatty liver and possible alcoholic ketoacidosis. The patient may have a component of sepsis and has a history of diabetes, EtOH abuse and is noted to have new onset seizures. The patient has a metabolic acidosis and thrombocytopenia as well as anemia. He has renal insufficiency and tachycardia as well as jaundice. PLAN: We will continue with ventilator support and try to decrease the FiO2 as tolerated. The patient will be followed with chest x-ray and arterial blood gas. We will continue with antibiotics and monitor his chemistry closely and correct as needed. The patient will get a surgical consult for continued distended abdomen, and we will continue with Diprivan as well as fentanyl. The patient he is getting bronchodilators, and we will continue with the bicarb drip. Also, we will continue to treat aggressively along with the other consultants and the primary care doctor. Gabe Mcdowell MD
[2017-09-10] MEDS: Insulin Reg-MEDIUM-Coverage SC SCH ×4 (09:51→22:27)
[2017-09-10] MEDS: Fentanyl 1000mcg/100ml NS 1,000 MCG/100 ML BAG IV PRN ×2 (10:15→22:23)
[2017-09-10 10:21] LABS: HEMOGLOBIN 9.1 g/dL (14.0-18.0); MEAN CELL VOLUME 97.4 fl (80.0-105.0); MEAN CORPUSCULAR HEMOGLOBIN 33.7 pg (25.0-35.0); MEAN CORPUSCULAR HGB CONC 34.6 g/dl (31.0-37.0); MEAN PLATELET VOLUME 11.1 fl (7.0-11.0); RBC 2.7 10^6/uL (3.5-6.1); WHITE BLOOD COUNT 8.1 10^3/ul (4.5-11.0)
--- NOTE | 2017-09-10 10:36 | CP.PCM.PN ---
<Jay Harden - Last Filed: 09/10/17 13:20> Subjective - Date & Time of Evaluation Date of Evaluation: 09/10/17 Time of Evaluation: 10:25 - Subjective Subjective: Jay Harden PGY1 IM Progress Note Patient was seen and examined in ICU. He remains intubated and sedated. He is in no distress and per nurses, there was no acute overnight events. Patient is on pressors PRN for low BP. There is loose dark stools in rectal tube bag and lazo in. Objective - Vital Signs/Intake and Output Vital Signs (last 24 hours): Temp Pulse Resp BP Pulse Ox 99.7 F H 140 H 19 106/66 95 09/10/17 06:50 09/10/17 09:45 09/10/17 08:00 09/10/17 09:45 09/10/17 08:00 Intake and Output: 09/10/17 09/10/17 06:59 18:59 Intake Total 3515 Output Total 900 Balance 2615 - Medications Medications: Current Medications Albuterol/Ipratropium (Duoneb 3 Mg/0.5 Mg (3 Ml) Ud) 3 ml IH [id number] [facility] Last Admin: 09/10/17 07:58 Dose: 3 ml Budesonide (Pulmicort Respules) 0.5 mg IH [id number] [facility] Last Admin: 09/10/17 07:58 Dose: 0.5 mg Folic Acid (Folic Acid) 1 mg IVP DAILY [facility] Fentanyl Citrate (Fentanyl Citrate/Sodium Chloride 1 Mg/100 Ml) 1,000 mcg in 100 mls @ 2 mls/hr IV .Q24H PRN; Protocol; 20 MCG/HR PRN Reason: TITRATE PER MD ORDER Last Titration: 09/10/17 02:04 Dose: 40 mcg/hr, 4 mls/hr Propofol (Diprivan) 1,000 mg in 100 mls @ 4.082 mls/hr IV .Q24H PRN; Protocol; 10 MCG/KG/MIN PRN Reason: TITRATE PER MD ORDER Last Admin: 09/10/17 05:43 Dose: 35 mcg/kg/min, 14.288 mls/hr Thiamine HCl 200 mg/ Sodium (Chloride) 52 mls @ 104 mls/hr IV Q8 [facility] Stop: 09/11/17 14:01 Last Admin: 09/10/17 05:31 Dose: 104 mls/hr NOREPINEPHRINE BIT/0.9 % NACL (Levophed 4 Mg/ 250 Ml Ns Premixed) 4 mg in 250 mls @ 15 mls/hr IV .[id number] PRN; Protocol; 4 MCG/MIN PRN Reason: TITRATE PER MD ORDER Last Titration: 09/10/17 05:11 Dose: 3 mcg/min, 11.25 mls/hr Piperacillin Sod/Tazobactam Sod (Zosyn 2.25 Gm In 0.9% 100 Ml) 2.25 gm in 100 mls @ 100 mls/hr IV Q8 [facility] PRN Reason: Protocol Stop: 09/17/17 22:01 Last Admin: 09/10/17 05:29 Dose: 100 mls/hr Levetiracetam 1,000 mg/ Sodium (Chloride) 110 mls @ 460 mls/hr IV Q12 [facility] Insulin Human Regular (Humulin R Med) 0 units SC ACHS [facility] PRN Reason: Protocol Last Admin: 09/10/17 09:51 Dose: 3 units Lorazepam (Ativan) 2 mg IVP Q3H PRN; Protocol PRN Reason: Agitation Multivitamins/Vitamin C (Multi-Delyn Liquid) 15 ml PO 0800 [facility] Pantoprazole Sodium (Protonix Inj) 40 mg IVP Q12 [facility] Last Admin: 09/10/17 09:50 Dose: 40 mg Vancomycin HCl (Vancocin 25 Mg/Ml (Oral Use)) 500 mg PO Q6 [facility] PRN Reason: Protocol Last Admin: 09/10/17 05:16 Dose: 500 mg - Labs Labs: 09/10/17 10:09 09/10/17 03:30 PT 13.0 SECONDS (9.4-12.5) H 09/08/17 09:21 INR 1.13 (0.93-1.08) H 09/08/17 09:21 APTT 33.5 Seconds (25.1-36.5) 09/08/17 09:21 - Additional Findings Additional findings: - Constitutional Appears: No Acute Distress - Head Exam Head Exam: ATRAUMATIC, NORMAL INSPECTION - Eye Exam Eye Exam: PERRL (sluggish), Scleral icterus - ENT Exam Additional comments: intubated - Neck Exam Neck Exam: Normal Inspection Additional comments: R IJ in place - Respiratory Exam Respiratory Exam: absent: Rales, Rhonchi, Wheezes Additional comments: ventilated - Cardiovascular Exam Cardiovascular Exam: Tachycardia, +S1, +S2 - GI/Abdominal Exam GI & Abdominal Exam: Distended. absent: Tenderness Additional comments: rectal tube in place, draining dark loose stools lazo catheter in place - Extremities Exam Extremities Exam: Normal Inspection - Back Exam Back Exam: NORMAL INSPECTION - Neurological Exam Neurological Exam: Altered - Psychiatric Exam Additional comments: unable to assess - Skin Skin Exam: Normal Color Assessment and Plan - Assessment and Plan (Free Text) Assessment: 47yo M with a PMH of DM2, HTN and alcohol use who presented with URI symptoms such as cough, shortness of breath, palpitations. Last alcoholic drink was night prior to admission. Patient was admitted for septic shock (with lactate of 7.7 on presentation), high anion gap metabolic acidosis, acute pancreatitis 2 /2 ETOH vs triglycerides, IRWIN vs CKD, elevated LFTs likely 2/2 ETOH, elevated BNP, hyponatremia, and hypokalemia. s/p cardiac arrest and ROSC. Upon ROSC, patient vomited and likely aspirated, but was turned to the side and suctioned. Intubated and on vent with sedation in ICU. Patient required pressors to maintain BP but is only on PRN basis now. Plan: 1. Septic shock - continue ICU monitoring due to unstable vitals and altered mental state - Lipase and Amylase elevated indicating pacreatitis 2/2 ETOH vs TG (>1000) - CT Findings are concerning for acute pancreatitis. No evidence of ductal dilatation, calcifications or pseudocyst. Mild hepatomegaly, and alcoholic liver steatosis however acute hepatitis is also a consideration. - pressors PRN - fluids stopped due to CXR but will be restarted per ICU team if lipase is improving (per GI recs) - Maintain normothermia - tylenol supp PRN - cont Vanc and Zosyn - blood cultures showed no growth - urine cultures showed no growth - stool cultures indicating cdiff +Ag/-Toxin; pt on contact precautions - nose/trach aspirate culture pending - Monitor vitals - Maintain MAP > 65 - ID consulted for management of septic shock, recs appreciated - GI consulted for alcoholic pancreatitis and +stool occult blood, recs appreciated - Surgery consulted for abdominal distention, recs appreciated - Palliative care consulted for advanced directives 2. Anion gap metabolic acidosis likely 2/2 lactic acidosis and ETOH - s/p cardiac arrest 09/08 - lactate was elevated on presentation, however, increase likely 2/2 cardiac arrest - patient was intubated to protect airway due to hypoxemia and vomiting to reduce risk of aspiration - currently on Fentanyl and Propofol PRN - ativan prn agitation added - Maintain SaO2 > 90% - CXR confirmed correct placement of endotracheal tube - TSH and A1C WNL - Cardiology consulted, recs appreciated 3. ETOH withdrawal seizures - cont Keppra 500mg Q12 for seizure ppx - Depakote stopped due to LFTs - ETOH level was elevated on admission, patient stated last drink was 09/07 PM - cont IV Thiamine - UDS negative other than ETOH level - CT Head was unremarkable - Neurology consulted, recs appreciated 4. 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 IRWIN vs CKD a/w Hypophosphatemia - FENa 3.2 indicating ATN - given septic shock, likely component of pre-renal and intrinsic ischemic ATN ( coarse granular casts seen on UA) - continue fluids - avoid nephrotoxins - Nephrology consulted, recs appreciated 6. Transaminitis likely w/ underlying liver disease - likely 2/2 shock liver and chronic ETOH use since INR is elevated - hepatitis panel negative - HIV pending - continue to monitor 7. Poor prognosis - continue to discussion with to establish understanding of condition - Palliative care consulted Patient was seen, examined and discussed with attending, Dr. Frances Harden PGY1 Pager # [phone] <Jeanne Daniels - Last Filed: 09/11/17 14:21> Objective - Vital Signs/Intake and Output Vital Signs (last 24 hours): Temp Pulse Resp BP Pulse Ox 97.0 F L 118 H 22 92/61 L 97 09/11/17 06:00 09/11/17 06:00 09/11/17 07:11 09/11/17 09:21 09/11/17 07:11 Intake and Output: 09/11/17 09/11/17 06:59 18:59 Intake Total 3170 20 Output Total 350 Balance 2820 20 - Medications Medications: Current Medications Mervinonide (Pulmicort Respules) 0.5 mg IH [id number] [facility] Last Admin: 09/11/17 07:01 Dose: 0.5 mg Fentanyl (Fentanyl) 50 mcg IVP Q4H PRN PRN Reason: Agitation Folic Acid (Folic Acid) 1 mg IVP DAILY [facility] Last Admin: 09/11/17 10:40 Dose: 1 mg Thiamine HCl 200 mg/ Sodium (Chloride) 52 mls @ 104 mls/hr IV Q8 [facility] Stop: 09/11/17 14:01 Last Admin: 09/11/17 05:39 Dose: 104 mls/hr Levetiracetam 1,000 mg/ Sodium (Chloride) 110 mls @ 460 mls/hr IV Q12 [facility] Last Admin: 09/11/17 10:27 Dose: 460 mls/hr Insulin Human Regular (Humulin R Med) 0 units SC ACHS [facility] PRN Reason: Protocol Last Admin: 09/11/17 08:00 Dose: 3 units Levalbuterol HCl (Xopenex) 0.63 mg IH [id number] [facility] Last Admin: 09/11/17 07:01 Dose: 0.63 mg Lorazepam (Ativan) 2 mg IVP Q3H PRN; Protocol PRN Reason: Agitation Last Admin: 09/10/17 12:16 Dose: 2 mg Multivitamins/Vitamin C (Multi-Delyn Liquid) 15 ml PO 0800 [facility] Last Admin: 09/11/17 08:03 Dose: 15 ml Pantoprazole Sodium (Protonix Inj) 40 mg IVP Q12 [facility] Last Admin: 09/11/17 10:25 Dose: 40 mg Thiamine HCl (Vitamin B1 Inj) 100 mg IV DAILY [facility] Vancomycin HCl (Vancocin 25 Mg/Ml (Oral Use)) 500 mg PO Q6 [facility] PRN Reason: Protocol Last Admin: 09/11/17 05:42 Dose: 500 mg - Labs Labs: 09/11/17 05:45 09/11/17 05:45 PT 13.0 SECONDS (9.4-12.5) H 09/08/17 09:21 INR 1.13 (0.93-1.08) H 09/08/17 09:21 APTT 33.5 Seconds (25.1-36.5) 09/08/17 09:21 Attending/Attestation - Attestation I have personally seen and examined this patient.: Yes I have fully participated in the care of the patient.: Yes I have reviewed all pertinent clinical information, including history, physical exam and plan: Yes Notes (Text): I have seen and examined the patient at bedside. Agree with the above note with the following additions/ exceptions: Briefly this is 47 year male with history of alcohol abuse, DM-2 who came initially for abdominal pain and dyspnea. He was found to be severely acidotic and had elevated lactic acid level. Currently intubated on 80% FiO2 with PEEP of 10. Continue IV Zosyn. Off of Levophed. Patient has a long history of alcohol abuse. Continue ativan prn. Seizure precautions. Continue IVF. Elevated LFTs probably due to worsening liver failure due to shock liver/alcohol abuse. He has worsening kidney function. UO 1500 ml. Will closely monitor Is Os. He has anemia and thrombocytopenia which can be due to alcohol induced BM suprresion vs sepsis induced coagulopathy. Blood and urine culture ar negative so far. Cdiff is positive. He has rectal tube and is on PO vancomycin. Continue IV keppra for seizures. Overall prognosis is poor. Palliative care consult pending. Dr Jeanne Daniels
[2017-09-10] MEDS: levETIRAcetam 1,000 MG in Sodium Chloride 0.9% 100 ML IV SCH ×2 (10:42→21:35)
--- NOTE | 2017-09-10 11:27 | CP.PCM.PN ---
<Hailey Tubbs - Last Filed: 09/10/17 11:51> Subjective - Date & Time of Evaluation Date of Evaluation: 09/10/17 Time of Evaluation: 11:23 - Subjective Subjective: ICU Progress Note for Светлана Pierre PGY2 Patient seen and examined at bedside. There were no acute overnight events as per nursing staff. Patient is intubated and sedation, but off of pressors. ROS could not be obtained. Objective - Vital Signs/Intake and Output Vital Signs (last 24 hours): Temp Pulse Resp BP Pulse Ox 99.7 F H 140 H 19 106/66 95 09/10/17 06:50 09/10/17 09:45 09/10/17 08:00 09/10/17 09:45 09/10/17 08:00 Intake and Output: 09/10/17 09/10/17 06:59 18:59 Intake Total 3515 160 Output Total 900 Balance 2615 160 - Medications Medications: Current Medications Albuterol/Ipratropium (Duoneb 3 Mg/0.5 Mg (3 Ml) Ud) 3 ml IH [id number] COUNT INCLUDES THE [facility] Last Admin: 09/10/17 07:58 Dose: 3 ml Budesonide (Pulmicort Respules) 0.5 mg IH [id number] COUNT INCLUDES THE [facility] Last Admin: 09/10/17 07:58 Dose: 0.5 mg Folic Acid (Folic Acid) 1 mg IVP DAILY COUNT INCLUDES THE [facility] Last Admin: 09/10/17 10:38 Dose: 1 mg Fentanyl Citrate (Fentanyl Citrate/Sodium Chloride 1 Mg/100 Ml) 1,000 mcg in 100 mls @ 2 mls/hr IV .Q24H PRN; Protocol; 20 MCG/HR PRN Reason: TITRATE PER MD ORDER Last Admin: 09/10/17 10:15 Dose: 40 mcg/hr, 4 mls/hr Propofol (Diprivan) 1,000 mg in 100 mls @ 4.082 mls/hr IV .Q24H PRN; Protocol; 10 MCG/KG/MIN PRN Reason: TITRATE PER MD ORDER Last Admin: 09/10/17 10:48 Dose: 50 mcg/kg/min, 20.412 mls/hr Thiamine HCl 200 mg/ Sodium (Chloride) 52 mls @ 104 mls/hr IV Q8 COUNT INCLUDES THE [facility] Stop: 09/11/17 14:01 Last Admin: 09/10/17 05:31 Dose: 104 mls/hr NOREPINEPHRINE BIT/0.9 % NACL (Levophed 4 Mg/ 250 Ml Ns Premixed) 4 mg in 250 mls @ 15 mls/hr IV .[id number] PRN; Protocol; 4 MCG/MIN PRN Reason: TITRATE PER MD ORDER Last Titration: 09/10/17 05:11 Dose: 3 mcg/min, 11.25 mls/hr Piperacillin Sod/Tazobactam Sod (Zosyn 2.25 Gm In 0.9% 100 Ml) 2.25 gm in 100 mls @ 100 mls/hr IV Q8 DENIA PRN Reason: Protocol Stop: 09/17/17 22:01 Last Admin: 09/10/17 05:29 Dose: 100 mls/hr Levetiracetam 1,000 mg/ Sodium (Chloride) 110 mls @ 460 mls/hr IV Q12 COUNT INCLUDES THE [facility] Last Admin: 09/10/17 10:42 Dose: 460 mls/hr Sodium Bicarbonate 75 meq/ (Sodium Chloride) 1,000 mls @ 75 mls/hr IV .[id number] DENIA Insulin Human Regular (Humulin R Med) 0 units SC ACHS DENIA PRN Reason: Protocol Last Admin: 09/10/17 09:51 Dose: 3 units Lorazepam (Ativan) 2 mg IVP Q3H PRN; Protocol PRN Reason: Agitation Multivitamins/Vitamin C (Multi-Delyn Liquid) 15 ml PO 0800 DENIA Pantoprazole Sodium (Protonix Inj) 40 mg IVP Q12 COUNT INCLUDES THE [facility] Last Admin: 09/10/17 09:50 Dose: 40 mg Vancomycin HCl (Vancocin 25 Mg/Ml (Oral Use)) 500 mg PO Q6 DENIA PRN Reason: Protocol Last Admin: 09/10/17 05:16 Dose: 500 mg - Labs Labs: 09/10/17 10:09 09/10/17 03:30 PT 13.0 SECONDS (9.4-12.5) H 09/08/17 09:21 INR 1.13 (0.93-1.08) H 09/08/17 09:21 APTT 33.5 Seconds (25.1-36.5) 09/08/17 09:21 - Constitutional Appears: No Acute Distress, Chronically Ill - Head Exam Head Exam: ATRAUMATIC, NORMAL INSPECTION, NORMOCEPHALIC - Eye Exam Eye Exam: Normal appearance, PERRL Pupil Exam: NORMAL ACCOMODATION, PERRL - ENT Exam ENT Exam: Mucous Membranes Moist - Respiratory Exam Respiratory Exam: Rales (at bases ), NORMAL BREATHING PATTERN. absent: Rhonchi , Wheezes - Cardiovascular Exam Cardiovascular Exam: Tachycardia, REGULAR RHYTHM, +S1, +S2. absent: Gallop, Rubs, Murmur - GI/Abdominal Exam GI & Abdominal Exam: Distended, Soft, Normal Bowel Sounds. absent: Rigid, Tenderness, Mass, Rebound - Extremities Exam Extremities Exam: absent: Calf Tenderness, Pedal Edema - Neurological Exam Neurological Exam: CN II-XII Intact - Skin Skin Exam: Dry, Warm Assessment and Plan - Assessment and Plan (Free Text) Assessment: This is a 47yo male with PMH of DM, HTN and alcohol abuse who was found to have septic shock secondary to pancreatitis, aspiration pneumonia, IRWIN, transaminitis , seizures, metabolic acidosis, thrombocytopenia (secondary to alcohol abuse) and cardiac arrest s/p ROSC and respiratory failure. Plan: Neuro: Pt intubated and sedated On Fentanyl and Propofol- pt continues to get agitated Ativan prn agitation Neuro consulted- recs appreciated Depakote d/c and changed to Keppra IV BID EEG done Seizure precaution Maintain normothemia CV: cardiac arrest s/p ROSC Cardio consulted Pt tachycardic- given Cardizem IVP once and still remains tachy Maintain MAP >65 Echo ordered Monitor I&O Pulm: Intubated on PRVC- will titrate to maintain SpO2>92% Pt has crackles on exam and is in metabolic acidosis IV fluids changed to 1/2 NS with Bicarb@75 CXR showed pneumonia of RUL and L perihilar Pulm consulted-recs appreciated HOB elevated- asp precaution Duoneb, Pulmicort GI: Pancreatitis and transaminitis secondary to alcohol abuse GI consulted- recs appreciated Will monitor amylase and Lipase continue IV fluids Abd U/S ordered to rule out cholecystitis Surg was consulted- no surgical intervention at this time Will give patient folic acid, multivitamin, thiamine Avoid nephrotoxic medications As per GI, can start feeds when lipase <1000 Hep panel negative Heme: Thrombocytopenia secondary to EtOH abuse Will continue to monitor platelets Hold Heparin for now Hgb stable- no overt signs of bleeding Nephro: IRWIN - prerenal with anion gap metabolic acidosis secondary to alcohol ketoacidosis as well as lactic acidosis Cr increased to 2.9, Bicarb 16 Will change fluids to 1/2NS with 75meq of Bicarb @75ml/hr Continue to monitor electrolytes and replace as needed Maintain euvolemia Avoid nephrotoxic agents Nephro consulted- recs appreciated ID: Septic shock secondary to pancreatitis, aspiration pneumonia and C. diff ID consulted- recs appreciated afebrile overnight Pt on Vanc/Zosyn HIV, S. pneumo and legionella pending Endo: Hx of DM Pt on ISS Maintain euglycemia 140-180s GI ppx: Protonix DVT ppx: SCDs- no heparin due to thrombocytopenia Dispo: Prognosis guarded. Palliative care consulted. Case seen, discussed and reviewed with attending. Светлана Tubbs PGY2 <Yury Eng - Last Filed: 09/10/17 12:58> Objective - Vital Signs/Intake and Output Vital Signs (last 24 hours): Temp Pulse Resp BP Pulse Ox 99.7 F H 140 H 19 106/66 95 09/10/17 06:50 09/10/17 09:45 09/10/17 08:00 09/10/17 09:45 09/10/17 08:00 Intake and Output: 09/10/17 09/10/17 06:59 18:59 Intake Total 3515 160 Output Total 900 Balance 2615 160 - Medications Medications: Current Medications Budesonide (Pulmicort Respules) 0.5 mg IH [id number] COUNT INCLUDES THE [facility] Last Admin: 09/10/17 07:58 Dose: 0.5 mg Folic Acid (Folic Acid) 1 mg IVP DAILY COUNT INCLUDES THE [facility] Last Admin: 09/10/17 10:38 Dose: 1 mg Fentanyl Citrate (Fentanyl Citrate/Sodium Chloride 1 Mg/100 Ml) 1,000 mcg in 100 mls @ 2 mls/hr IV .Q24H PRN; Protocol; 20 MCG/HR PRN Reason: TITRATE PER MD ORDER Last Admin: 09/10/17 10:15 Dose: 40 mcg/hr, 4 mls/hr Propofol (Diprivan) 1,000 mg in 100 mls @ 4.082 mls/hr IV .Q24H PRN; Protocol; 10 MCG/KG/MIN PRN Reason: TITRATE PER MD ORDER Last Admin: 09/10/17 10:48 Dose: 50 mcg/kg/min, 20.412 mls/hr Thiamine HCl 200 mg/ Sodium (Chloride) 52 mls @ 104 mls/hr IV Q8 COUNT INCLUDES THE [facility] Stop: 09/11/17 14:01 Last Admin: 09/10/17 05:31 Dose: 104 mls/hr NOREPINEPHRINE BIT/0.9 % NACL (Levophed 4 Mg/ 250 Ml Ns Premixed) 4 mg in 250 mls @ 15 mls/hr IV .[id number] PRN; Protocol; 4 MCG/MIN PRN Reason: TITRATE PER MD ORDER Last Titration: 09/10/17 05:11 Dose: 3 mcg/min, 11.25 mls/hr Piperacillin Sod/Tazobactam Sod (Zosyn 2.25 Gm In 0.9% 100 Ml) 2.25 gm in 100 mls @ 100 mls/hr IV Q8 DENIA PRN Reason: Protocol Stop: 09/17/17 22:01 Last Admin: 09/10/17 05:29 Dose: 100 mls/hr Levetiracetam 1,000 mg/ Sodium (Chloride) 110 mls @ 460 mls/hr IV Q12 COUNT INCLUDES THE [facility] Last Admin: 09/10/17 10:42 Dose: 460 mls/hr Sodium Bicarbonate 75 meq/ (Sodium Chloride) 1,000 mls @ 75 mls/hr IV .[id number] COUNT INCLUDES THE [facility] Last Admin: 09/10/17 11:48 Dose: 75 mls/hr Insulin Human Regular (Humulin R Med) 0 units SC ACHS DENIA PRN Reason: Protocol Last Admin: 09/10/17 09:51 Dose: 3 units Levalbuterol HCl (Xopenex) 0.63 mg IH [id number] PRN PRN Reason: Shortness of Breath Lorazepam (Ativan) 2 mg IVP Q3H PRN; Protocol PRN Reason: Agitation Last Admin: 09/10/17 12:16 Dose: 2 mg Multivitamins/Vitamin C (Multi-Delyn Liquid) 15 ml PO 0800 COUNT INCLUDES THE [facility] Pantoprazole Sodium (Protonix Inj) 40 mg IVP Q12 COUNT INCLUDES THE [facility] Last Admin: 09/10/17 09:50 Dose: 40 mg Vancomycin HCl (Vancocin 25 Mg/Ml (Oral Use)) 500 mg PO Q6 DENIA PRN Reason: Protocol Last Admin: 09/10/17 12:07 Dose: 500 mg - Labs Labs: 09/10/17 10:09 09/10/17 03:30 PT 13.0 SECONDS (9.4-12.5) H 09/08/17 09:21 INR 1.13 (0.93-1.08) H 09/08/17 09:21 APTT 33.5 Seconds (25.1-36.5) 09/08/17 09:21 Attending/Attestation - Attestation I have personally seen and examined this patient.: Yes I have fully participated in the care of the patient.: Yes I have reviewed all pertinent clinical information, including history, physical exam and plan: Yes Notes (Text): 09/10/17 12:51 The patient was seen and examined at the bedside. Patient care was discussed with resident Medical records, lab studies, and imaging were reviewed and management issues were discussed and formulated. Last 24H events reviewed. Agree with above treatment plans as outlined in 's note with addition of the following: -s\p CPR arrest -hemodynamic monitoring to maintain MAP>65; currently off vasopressor support -hold-anti HTN meds while B\P <120; f\u Echo; cardiology team eval -Mechanical ventilation and o2 supplementation to maintain Spo2 >90 Pao2>60 -monitor for TV 6ml\kg IBW and plateau pressure <30 -continue nebs and pulmonary toilet -ABG and CXR reviewed ; Fio2 decreased to 80% and Peep increased to 10 -continue with broad spectrum Abx and f\u cultures -f\u Bun\Cr and U\o; d\c NS and start 1/2NS with 75meq bicarb for isotonic, low chlotide IVF in setting of sepsis and IRWIN -start tube feed diet once NGT adjusted and aspiration precautions -GI team f\u; f\u amylase and lipase and f\u LFT -f\u abdominal US -continue neuro checks and continue keppra; seizure precaution; f\u EEG -Thiamine, Folate and MVI; monitor foe ETOH withdrawal; start Ativan PRN -surgical eval appreciated -f\u serial CBC; monitor for bleed; consider heme\onc eval -DVT\PUD prophylaxis CCM time 37mins 09/10/17 12:57
--- NOTE | 2017-09-10 11:41 | RAD ---
HISTORY: NGT placement COMPARISON: 09/10/2017 FINDINGS: Endotracheal tube terminates 1.1 cm proximal to the emmanuelle. The nasogastric tube terminates in the stomach. The right IJV line terminates in the SVC. LUNGS: There is interval worsening of multifocal consolidation in the lungs, worse on the left. PLEURA: No significant pleural effusion identified, no pneumothorax apparent. CARDIOVASCULAR: Normal. OSSEOUS STRUCTURES: No significant abnormalities. VISUALIZED UPPER ABDOMEN: Normal. OTHER FINDINGS: None. IMPRESSION: Nasogastric tube terminates in the stomach. Worsening multifocal consolidation in the lungs, worse on the left could represent pulmonary edema given the rapid interval development since the prior examination.
[2017-09-10] MEDS ORDERED: Levalbuterol 0.63 MG/3 ML Inhal Soln UD IH PRN (11:56)
[2017-09-10 12:46] LABS: AMYLASE 66 U/L (35-125); LIPASE 439 U/L (23-300)
--- NOTE | 2017-09-10 14:04 | PN ---
DATE: 09/10/2017 SUBJECTIVE: The patient remains intubated in the intensive care. He is sedated. He does not respond to painful stimuli. PHYSICAL EXAMINATION: VITAL SIGNS: Reveal temperature of 99.7, blood pressure 106/66, heart rate of 140. HEENT: Reveal sclerae to be white. He has an endotracheal tube in his mouth. His face is edematous. NECK: Supple. CHEST: Reveal lungs to be clear. HEART: Reveals a tachycardia. ABDOMEN: Softly distended. No rebound. No guarding. EXTREMITIES: Show no edema. LABORATORY DATA: Reveal potassium of 3.5, BUN 29, creatinine 2.9, AST 656, total bilirubin 2.3, ALT 174, alkaline phosphatase of 95. CBC reveals hemoglobin 9.1, white blood cell count 8.1, platelet count of 39,000. IMPRESSION: 1. Alcohol-induced pancreatitis. 2. Pseudomembranous colitis. 3. Acute renal failure. 4. Sepsis. 5. Elevated liver enzymes, multifactorial in etiology including alcoholic liver disease and recent administration of Depakote for seizures. 6. Seizure disorder. 7. Thrombocytopenia. RECOMMENDATIONS: 1. Continue IV fluids. This can be decreased to 75 mL with Ringer's lactate due to volume overload. 2. Check repeat amylase and lipase. 3. Hold enteral feedings pending results of amylase and lipase. 4. Continue broad-spectrum antibiotics. 5. Continue PPI. 6. Hold Depakote. I have discussed this case with the ICU resident, Dr. Alejandrina Altman. Bob Borden MD
--- NOTE | 2017-09-10 15:15 | CP.PCM.PN ---
Subjective - Date & Time of Evaluation Date of Evaluation: 09/10/17 Time of Evaluation: 15:14 - Subjective Subjective: Follow up Nephrology Consultation: Assessment: critical Acute Kidney Injury (N17.9) likely due to pre-renal state, SIRS, Acute tubular necrosis Hyponatermia, hypokalemia DM, HTN, chronic alcoholism, hepatic dysfunction acute pancreatitis HAGMA with lactic acidosis + alcohol ketoacidosis and starvation ketoacidosis Thrombocytopenia Hypomagnesemia, hypophosphatemia s/p cardiac arrest, seizure Plan No acute need for renal replacement therapy at this time but may need soon. Patient not on ACEI/ARB due to IRWIN. maintain hemodynamics stable Monitor Input/Output, daily weights and renal function with basic metabolic panel CT abdomen showed acute pancreatitis and fatty liver continue with folic acid MVI, thiamine supplements continue with IVF as bicarb drip supplement electrolytes hold metformin Dose meds/antibiotics for reduced GFR. Avoid fleets enema/magnesium based laxatives. Avoid nephrotoxins/NSAIDs/ iodinated contrast (unless needed emergently) Glycemic control Further work up/management as per primary team overall prognosis poor Thanks for allowing me to participate in care of your patient. Will follow patient with you. Please call if any Qs/. d/w team Dr Finn Ng Office: [phone] Chief Complaint; unable HPI: Pt is a 47 M with hx of diabetes Mellitus hypertension and chronic daily Etoh abuse presented with SOB, pain abdomen and not feeling well renal consult for IRWIN and acidosis pt unable to provide any hx no hx noted for any spurious or toxic alcohol ingestion ROS: unable Physical Examination: General Appearance: ill appearing. Vitals reviewed and noted as below Head; Atraumatic, normocephalic ENT: intubated Neck; supple no lymphadenopathy, no thyromegaly or bruit Lungs: Increased respiratory rate/effort. Breath sounds bilateral equal and with basal rales Heart: Increased rate. s1s2 normal. No rub or gallop. Extremities: no edema. No varicose veins Neurological: Patient is sedated Skin: Warm and dry. Normal turgor. No rash. Palpitation: Normal elasticity for age Abdomen: Abdomen is soft. Bowel sounds decreased. There is mild abdominal tenderness, no guarding/rigidity no organomegaly. distended. has rectal tube Psych: unable MSK: no joint tenderness or swelling. has clubbing : kidney or bladder not palpable Labs/imaging reviewed. Past medical history, past surgical history, family history, social history, allergy reviewed and noted as below Family hx: no hx of CKD. Rest non-contributory UA no crystals but has ketone and protein Objective - Vital Signs/Intake and Output Vital Signs (last 24 hours): Temp Pulse Resp BP Pulse Ox 98.2 F 121 H 19 94/56 L 99 09/10/17 14:40 09/10/17 14:40 09/10/17 08:00 09/10/17 14:30 09/10/17 14:40 Intake and Output: 09/10/17 09/10/17 06:59 18:59 Intake Total 3515 160 Output Total 900 Balance 2615 160 - Medications Medications: Current Medications Budesonide (Pulmicort Respules) 0.5 mg IH [id number] [facility]END[facility] TO [facility] Last Admin: 09/10/17 07:58 Dose: 0.5 mg Folic Acid (Folic Acid) 1 mg IVP DAILY [facility] TO [facility] Last Admin: 09/10/17 10:38 Dose: 1 mg Fentanyl Citrate (Fentanyl Citrate/Sodium Chloride 1 Mg/100 Ml) 1,000 mcg in 100 mls @ 2 mls/hr IV .Q24H PRN; Protocol; 20 MCG/HR PRN Reason: TITRATE PER MD ORDER Last Admin: 09/10/17 10:15 Dose: 40 mcg/hr, 4 mls/hr Propofol (Diprivan) 1,000 mg in 100 mls @ 4.082 mls/hr IV .Q24H PRN; Protocol; 10 MCG/KG/MIN PRN Reason: TITRATE PER MD ORDER Last Admin: 09/10/17 10:48 Dose: 50 mcg/kg/min, 20.412 mls/hr Thiamine HCl 200 mg/ Sodium (Chloride) 52 mls @ 104 mls/hr IV Q8 DENIA Stop: 09/11/17 14:01 Last Admin: 09/10/17 14:23 Dose: 104 mls/hr NOREPINEPHRINE BIT/0.9 % NACL (Levophed 4 Mg/ 250 Ml Ns Premixed) 4 mg in 250 mls @ 15 mls/hr IV .[id number] PRN; Protocol; 4 MCG/MIN PRN Reason: TITRATE PER MD ORDER Last Titration: 09/10/17 05:11 Dose: 3 mcg/min, 11.25 mls/hr Piperacillin Sod/Tazobactam Sod (Zosyn 2.25 Gm In 0.9% 100 Ml) 2.25 gm in 100 mls @ 100 mls/hr IV Q8 DENIA PRN Reason: Protocol Stop: 09/17/17 22:01 Last Admin: 09/10/17 14:26 Dose: 100 mls/hr Levetiracetam 1,000 mg/ Sodium (Chloride) 110 mls @ 460 mls/hr IV Q12 DENIA Last Admin: 09/10/17 10:42 Dose: 460 mls/hr Sodium Bicarbonate 75 meq/ (Sodium Chloride) 1,000 mls @ 75 mls/hr IV .[id number] [facility] TO [facility] Last Admin: 09/10/17 11:48 Dose: 75 mls/hr Insulin Human Regular (Humulin R Med) 0 units SC ACHS DENIA PRN Reason: Protocol Last Admin: 09/10/17 12:05 Dose: 5 units Levalbuterol HCl (Xopenex) 0.63 mg IH [id number] PRN PRN Reason: Shortness of Breath Last Admin: 09/10/17 14:12 Dose: 0.63 mg Lorazepam (Ativan) 2 mg IVP Q3H PRN; Protocol PRN Reason: Agitation Last Admin: 09/10/17 12:16 Dose: 2 mg Multivitamins/Vitamin C (Multi-Delyn Liquid) 15 ml PO 0800 DENIA Pantoprazole Sodium (Protonix Inj) 40 mg IVP Q12 [facility] Last Admin: 09/10/17 09:50 Dose: 40 mg Vancomycin HCl (Vancocin 25 Mg/Ml (Oral Use)) 500 mg PO Q6 DENIA PRN Reason: Protocol Last Admin: 09/10/17 12:07 Dose: 500 mg - Labs Labs: 09/10/17 10:09 09/10/17 03:30 PT 13.0 SECONDS (9.4-12.5) H 09/08/17 09:21 INR 1.13 (0.93-1.08) H 09/08/17 09:21 APTT 33.5 Seconds (25.1-36.5) 09/08/17 09:21
--- NOTE | 2017-09-10 16:52 | CP.PCM.PN ---
Subjective - Date & Time of Evaluation Date of Evaluation: 09/10/17 Time of Evaluation: 09:10 - Subjective Subjective: Continues to be intubated, sedated, no fevers overnight. Objective - Vital Signs/Intake and Output Vital Signs (last 24 hours): Temp Pulse Resp BP Pulse Ox 100.0 F H 114 H 33 H 112/80 97 09/10/17 01:10 09/10/17 01:10 09/09/17 16:10 09/10/17 01:00 09/10/17 01:10 Intake and Output: 09/09/17 09/10/17 18:59 06:59 Intake Total 3435.0 709 Output Total 600 Balance 2835.0 709 - Medications Medications: Current Medications Albuterol/Ipratropium (Duoneb 3 Mg/0.5 Mg (3 Ml) Ud) 3 ml IH [id number] [facility] Last Admin: 09/10/17 02:03 Dose: 3 ml Budesonide (Pulmicort Respules) 0.5 mg IH [id number] [facility] Last Admin: 09/09/17 19:54 Dose: 0.5 mg Levetiracetam (Keppra 500mg Ivpb) 500 mg in 100 mls @ 460 mls/hr IV Q12 [facility] Last Admin: 09/09/17 21:20 Dose: 460 mls/hr Fentanyl Citrate (Fentanyl Citrate/Sodium Chloride 1 Mg/100 Ml) 1,000 mcg in 100 mls @ 2 mls/hr IV .Q24H PRN; Protocol; 20 MCG/HR PRN Reason: TITRATE PER MD ORDER Last Titration: 09/10/17 02:04 Dose: 40 mcg/hr, 4 mls/hr Propofol (Diprivan) 1,000 mg in 100 mls @ 4.082 mls/hr IV .Q24H PRN; Protocol; 10 MCG/KG/MIN PRN Reason: TITRATE PER MD ORDER Last Admin: 09/10/17 05:43 Dose: 35 mcg/kg/min, 14.288 mls/hr Thiamine HCl 200 mg/ Sodium (Chloride) 52 mls @ 104 mls/hr IV Q8 [facility] Stop: 09/11/17 14:01 Last Admin: 09/10/17 05:31 Dose: 104 mls/hr NOREPINEPHRINE BIT/0.9 % NACL (Levophed 4 Mg/ 250 Ml Ns Premixed) 4 mg in 250 mls @ 15 mls/hr IV .[id number] PRN; Protocol; 4 MCG/MIN PRN Reason: TITRATE PER MD ORDER Last Titration: 09/10/17 05:11 Dose: 3 mcg/min, 11.25 mls/hr Piperacillin Sod/Tazobactam Sod (Zosyn 2.25 Gm In 0.9% 100 Ml) 2.25 gm in 100 mls @ 100 mls/hr IV Q8 DENIA PRN Reason: Protocol Stop: 09/17/17 22:01 Last Admin: 09/10/17 05:29 Dose: 100 mls/hr Sodium Chloride (Sodium Chloride 0.9%) 1,000 mls @ 150 mls/hr IV .[id number] [facility] Last Admin: 09/10/17 04:57 Dose: 150 mls/hr Insulin Human Regular (Humulin R Med) 0 units SC ACHS DENIA PRN Reason: Protocol Last Admin: 09/09/17 21:29 Dose: Not Given Vancomycin HCl (Vancocin 25 Mg/Ml (Oral Use)) 500 mg PO Q6 DENIA PRN Reason: Protocol Last Admin: 09/10/17 05:16 Dose: 500 mg - Labs Labs: 09/09/17 06:00 09/10/17 03:30 PT 13.0 SECONDS (9.4-12.5) H 09/08/17 09:21 INR 1.13 (0.93-1.08) H 09/08/17 09:21 APTT 33.5 Seconds (25.1-36.5) 09/08/17 09:21 - Constitutional Appears: Other (intubated, sedated) - ENT Exam Additional comments: ET tube in place - Neck Exam Additional comments: right IJ TLC intact - Respiratory Exam Respiratory Exam: Decreased Breath Sounds, Rales (scattered) - Cardiovascular Exam Cardiovascular Exam: +S1, +S2 - GI/Abdominal Exam GI & Abdominal Exam: Soft. absent: Tenderness Assessment and Plan - Assessment and Plan (Free Text) Plan: Assessment Systemic Inflammatory Reponse Syndrome, with VDRF consider severe sepsis due to C. diff. associated diarrhea on top of acute alcoholic pancreatitis Thrombocytopenia with alcoholic liver disease DM HTN Plan blood and urine cx are negative, CXR is more compatible with pulmonary edema than pneumonia, PCT is elevated but patient has renal failure - will d/c Zosyn; continue PO Vancomycin day 1 for 10-14 days overall prognosis is poor
--- NOTE | 2017-09-10 18:03 | CARD ---
APPROVED REPORT EXAM: Two-dimensional and M-mode echocardiogram with Doppler and color Doppler. INDICATION TACHYCARDIA 2D DIMENSIONS RVDd3.3 (2.9-3.5cm)Left Atrium (2D)4.0 (1.6-4.0cm) IVSd1.0 (0.7-1.1cm)LVDd3.8 (3.9-5.9cm) PWd1.1 (0.7-1.1cm)LVDs2.5 (2.5-4.0cm) FS (%) 35.2 %LVEF (%)65.3 (>50%) M-Mode DIMENSIONS Aortic Root3.60 (2.2-3.7cm)Aortic Cusp Exc.2.10 (1.5-2.0cm) Aortic Valve AoV Peak Mtbrrqpc708.0cm/Ct Peak GR.7mmHg Mitral Valve MV E Lonccvzr92.5cm/sMV A Tmjawfzy72.3cm/sE/A ratio0.9 TDI Lateral E' Peak V13.40cm/sMedial E' Peak V9.16cm/sE/Lateral E'6.3 E/Medial E'9.2 Pulmonary Valve PV Peak Qmaflneg16.9cm/sPV Peak Grad.2mmHg Tricuspid Valve TR Peak Vavtyxco064oi/sRAP [id number] Peak Gr.30mmHg [id number] LEFT VENTRICLE The left ventricle is normal size. There is normal left ventricular wall thickness. The left ventricular function is normal.EF-65% There is normal LV segmental wall motion. Transmitral Doppler flow pattern is Grade III-reversible restrictive diastolic dysfunction. No left ventricle thrombus noted on this study. There is no ventricular septal defect visualized. There is no left ventricular aneurysm. There is no mass noted in the left ventricle. RIGHT VENTRICLE The right ventricle is normal size. There is normal right ventricular wall thickness. The right ventricular systolic function is normal. ATRIA The left atrium is borderline dilated. The right atrium size is normal. The interatrial septum is intact with no evidence for an atrial septal defect. AORTIC VALVE The aortic valve is calcified but opens well. There is trace to mild aortic regurgitation. There is no aortic valvular stenosis. There is no aortic valvular vegetation. MITRAL VALVE The mitral valve is thickened but opens well. Mitral regurgitation is trace. There is no mitral valve stenosis. There is no evidence of mitral valve prolapse. TRICUSPID VALVE The tricuspid valve leaflets are thickened , but open well. There is mild tricuspid regurgitation.RVSP-40 mmof hg. There is no tricuspid valve stenosis. There is no tricuspid valve prolapse or vegetation. PULMONIC VALVE The pulmonic valve is mildly thickened. There is no pulmonic valvular regurgitation. There is no pulmonic valvular stenosis. GREAT VESSELS The aortic root is normal in size. The ascending aorta is normal in size. The pulmonary artery is normal. The IVC is normal in size and collapses >50% with inspiration. PERICARDIAL EFFUSION There is no pleural effusion. There is no pericardial effusion. <Conclusion> The left ventricle is normal size. There is normal left ventricular wall thickness. The left ventricular function is normal.EF-65% There is normal LV segmental wall motion. There is trace to mild aortic regurgitation. Mitral regurgitation is trace. There is mild tricuspid regurgitation.RVSP-40 mmof hg. The IVC is normal in size and collapses >50% with inspiration. There is no pericardial effusion.
[2017-09-10] MEDS: Levalbuterol 0.63 MG/3 ML Inhal Soln UD IH SCH (19:32)
--- NOTE | 2017-09-10 23:21 | CON ---
DATE: 09/10/2017 CARDIOLOGY CONSULTATION HISTORY OF PRESENT ILLNESS: The patient is a 47-year-old male who had a cardiac arrest 2 days ago. I was asked to see him for questionable management. According to those , the arrest was supposedly flat line. The patient's past medical history is notable for diabetes mellitus as well as heavy drinking of alcohol. No previous cardiac history is noted. The rest of his history is not available. REVIEW OF SYSTEMS: Not available. PHYSICAL EXAMINATION GENERAL: The patient is sedated and intubated. VITAL SIGNS: Blood pressure is 106/66, off of pressors; heart rate is in the 120s with intraventricular conduction defect. NECK: Negative JVD. LUNGS: Decreased breath sounds bilaterally. HEART: Reveal S1 and S2. EXTREMITIES: Without edema. ABDOMEN: Positive diarrhea noted. EKG shows an IVCD. LABORATORY DATA: Hemoglobin is 9.1, the platelet count is 39,000. Chemistries: BUN and creatinine is 29 and 2.9, potassium is 3.6. Troponin is 0.3. IMPRESSION AND PLAN: 1. Status post cardiopulmonary arrest. 2. Diabetes mellitus. 3. Renal insufficiency. 4. Thrombocytopenia. 5. Anemia. Given these findings, we will obtain an echocardiogram. We will need to rule out alcoholic cardiomyopathy. The magnesium which was low on presentation has been replaced. Grant Delgado MD
[2017-09-11] MEDS: Vancomycin 25 MG/ML PO SCH ×5 (00:36→23:46)
[2017-09-11] MEDS: Levalbuterol 0.63 MG/3 ML Inhal Soln UD IH SCH ×4 (01:50→20:25)
[2017-09-11] MEDS: Propofol 10 mg/ml 1,000 MG/100 ML VIAL IV PRN (02:05)
[2017-09-11 05:39] LABS: ARTERIAL BLOOD GAS HCO3 22.6 mmol/L (21-28); ARTERIAL BLOOD GAS HEMOGLOBIN 8.7 g/dL (11.7-17.4); ARTERIAL BLOOD GAS O2 CAPACITY 12.1 mL/dl (16-24); ARTERIAL BLOOD GAS O2 SAT 99.1 % (95-98); ARTERIAL BLOOD GAS PCO2 65 mm/Hg (35-45); ARTERIAL BLOOD GAS TCO2 24.6 mmol.L (22-28)
--- NOTE | 2017-09-11 06:44 | CP.CCUPN ---
<Mayra Pierce - Last Filed: 09/11/17 09:23> CCU Subjective - Physician Review Subjective (Free Text): 09/11/17 08:20 PGY2 ICU Progress note for Dr. Eng Patient seen and examined at bedside. As per nursing patient was afebrile overnight but remained tachycardic through the night. Intubated on vent (450, 18 , 80%, 10). Sedated on fentanyl@5cc and diprivan@7.6cc. Levophed was d/c. Patient made 25cc UO overnight and 100cc in rectal tube. No gag and fixed pupils. Feeds on hold for abdominal u/s. ROS unobtainable. 09/11/17 09:25 Fentanyl and Diprivan gtt discontinued. Vent settings at (420, 60, 10, 22). Tube feeds to be started at 20cc/hr Critical Care Time Spent (in minutes): 45 CCU Objective - Vital Signs / Intake & Output Vital Signs (Last 4 hours): Vital Signs Temp Pulse BP Pulse Ox 09/11/17 06:00 97.0 F L 118 H 96/51 L 97 09/11/17 05:50 97.0 F L 116 H 98 09/11/17 05:41 97.0 F L 115 H 86/53 L 97 09/11/17 05:40 97.0 F L 115 H 97 09/11/17 05:30 97.0 F L 116 H 97 09/11/17 05:20 97.0 F L 115 H 97 09/11/17 05:10 97.0 F L 116 H 97 09/11/17 05:00 96.8 F L 115 H 87/47 L 99 09/11/17 04:50 96.8 F L 116 H 98 09/11/17 04:40 96.8 F L 117 H 98 09/11/17 04:30 96.8 F L 118 H 98 09/11/17 04:20 96.8 F L 117 H 98 09/11/17 04:11 96.8 F L 116 H 86/49 L 98 09/11/17 04:10 96.8 F L 116 H 97 09/11/17 04:08 96.8 F L 115 H 80/43 L 98 09/11/17 04:06 97.0 F L 116 H 82/46 L 98 09/11/17 04:05 97.0 F L 116 H 09/11/17 04:04 97.0 F L 116 H 80/45 L 97 09/11/17 04:00 97.0 F L 116 H 81/43 L 97 09/11/17 03:53 95.5 F L 115 H 09/11/17 03:50 90.9 F L 116 H 97 09/11/17 03:49 89.8 F L 117 H 110/42 L 95 09/11/17 03:40 97.7 F 117 H 98 09/11/17 03:30 97.7 F 117 H 89/45 L 97 09/11/17 03:27 97.7 F 117 H 85/46 L 09/11/17 03:26 97.7 F 117 H 98 09/11/17 03:20 97.7 F 118 H 97 09/11/17 03:14 97.7 F 118 H 97 09/11/17 03:10 97.7 F 118 H 98 09/11/17 03:08 97.7 F 119 H 87/43 L 97 09/11/17 03:00 97.7 F 120 H 88/43 L 96 09/11/17 02:50 97.7 F 119 H 97 09/11/17 02:46 97.7 F 119 H 90/48 L 98 Intake and Output (Last 8hrs): Intake & Output 09/10/17 09/10/17 09/11/17 14:59 22:59 06:59 Intake Total 160 1830 1440 Output Total 300 50 Balance 160 1530 1390 Intake: IV 160 1830 1440 Fentanyl 60 90 NS 300 Propofol 230 150 Sodium Bicar 500 900 levo 0 meds 440 200 Output: Gastric Amount 25 Nares 25 Urine 200 25 Urethral (Chance) 200 25 Urine/Stool Mix 100 - Physical Exam Head: Positive for: Atraumatic, Normocephalic Pupils: Positive for: Other (nonreactive) Extroacular Muscles: Positive for: Other (exopthalmic) Mouth: Positive for: Moist Mucous Membranes, Other (ET tube in place) Neck: Positive for: Other (R IJ TLC in place). Negative for: Lymphadenopathy Respiratory/Chest: Positive for: Rales (at bases), Other (intubated on vent (450 , 18, 80, 10)). Negative for: Accessory Muscle Use, Wheezes, Retracting, Rhonchi, Tachypneic Cardiovascular: Positive for: Normal S1, S2, Tachycardic. Negative for: Regular Rate and Rhythm, Murmurs Abdomen: Positive for: Distention, Normal Bowel Sounds. Negative for: Tenderness, Peritoneal Signs Upper Extremity: Positive for: Normal Inspection. Negative for: Cyanosis, Edema Lower Extremity: Positive for: Normal Inspection. Negative for: Edema, CALF TENDERNESS Neurological: Positive for: Other (sedated on fentanyl and diprivan; no gag reflex) Skin: Positive for: Warm, Dry. Negative for: Rashes - Medications Active Medications: Active Medications Generic Name Dose Route Start Last Admin Trade Name Freq PRN Reason Stop Dose Admin Budesonide 0.5 mg 09/09/17 08:00 09/10/17 19:32 Pulmicort Respules IH 0.5 mg [id number] DENIA Administration Folic Acid 1 mg 09/10/17 10:00 09/10/17 10:38 Folic Acid IVP 1 mg DAILY DENIA Administration Fentanyl Citrate 1,000 mcg in 100 mls @ 2 mls/hr 09/08/17 13:58 09/10/17 22: 23 Fentanyl Citrate/Sodium Chloride 1 Mg/100 Ml IV 80 mcg/hr .Q24H PRN 8 mls/hr TITRATE PER MD ORDER Administration Protocol 20 MCG/HR Propofol 1,000 mg in 100 mls @ 4.082 mls/hr 09/08/17 12:20 09/11/17 02:05 Diprivan IV 46.29 mcg/kg/min .Q24H PRN 18.9 mls/hr TITRATE PER MD ORDER Administration Protocol 10 MCG/KG/MIN Thiamine HCl 200 mg/ Sodium 52 mls @ 104 mls/hr 09/08/17 17:27 09/11/17 05:39 Chloride IV 09/11/17 14:01 104 mls/hr Q8 DENIA Administration NOREPINEPHRINE BIT/0.9 % NACL 4 mg in 250 mls @ 15 mls/hr 09/08/17 17:32 05:11 Levophed 4 Mg/ 250 Ml Ns Premixed IV 3 mcg/min .[id number] PRN 11.25 mls/hr TITRATE PER MD ORDER Titration Protocol 4 MCG/MIN Levetiracetam 1,000 mg/ Sodium 110 mls @ 460 mls/hr 09/10/17 10:00 09/10/17 21:35 Chloride IV 460 mls/hr Q12 DENIA Administration Sodium Bicarbonate 75 meq/ 1,000 mls @ 75 mls/hr 09/10/17 11:00 09/11/17 05: 38 Sodium Chloride IV 75 mls/hr .[id number] DENIA Administration Insulin Human Regular 0 units 09/08/17 16:30 09/10/17 22:27 Humulin R Med SC 3 units ACHS DENIA Administration Protocol Levalbuterol HCl 0.63 mg 09/10/17 20:00 09/11/17 01:50 Xopenex IH 0.63 mg [id number] DENIA Administration Lorazepam 2 mg 09/10/17 09:16 09/10/17 12:16 Ativan IVP 2 mg Q3H PRN Administration Agitation Protocol Multivitamins/Vitamin C 15 ml 09/11/17 08:00 Multi-Delyn Liquid PO 0800 DENIA Pantoprazole Sodium 40 mg 09/10/17 10:00 09/10/17 21:35 Protonix Inj IVP 40 mg Q12 DENIA Administration Thiamine HCl 100 mg 09/12/17 10:00 Vitamin B1 Inj IV DAILY DENIA Vancomycin HCl 500 mg 09/09/17 18:00 09/11/17 05:42 Vancocin 25 Mg/Ml (Oral Use) PO 500 mg Q6 DENIA Administration Protocol - Patient Studies Lab Studies: Microbiology Studies 09/08/17 12:30 Blood Culture - Preliminary Blood-Venous NO GROWTH AFTER 48 HOURS Lab Studies 09/10/17 09/10/17 09/10/17 Range/Units 21:33 17:08 12:08 WBC (4.5-11.0) 10^3/ul RBC (3.5-6.1) 10^6/uL Hgb (14.0-18.0) g/dL Hct (42.0-52.0) % MCV (80.0-105.0) fl MCH (25.0-35.0) pg MCHC (31.0-37.0) g/dl RDW (11.5-14.5) % Plt Count (120.0-450.0) 10^3/uL MPV (7.0-11.0) fl POC Glucose (mg/dL) 238 H 227 H 263 H (65-110) mg/dL Amylase (35-125) U/L Lipase (23-300) U/L HIV 1&2 Ag/Ab, 4th Gen (Nonreactive) 09/10/17 09/10/17 09/10/17 Range/Units 12:05 10:09 07:44 WBC 8.1 D (4.5-11.0) 10^3/ul RBC 2.70 L (3.5-6.1) 10^6/uL Hgb 9.1 L (14.0-18.0) g/dL Hct 26.3 L (42.0-52.0) % MCV 97.4 D (80.0-105.0) fl MCH 33.7 (25.0-35.0) pg MCHC 34.6 (31.0-37.0) g/dl RDW 15.0 H (11.5-14.5) % Plt Count 39 L* (120.0-450.0) 10^3/uL MPV 11.1 H (7.0-11.0) fl POC Glucose (mg/dL) 209 H (65-110) mg/dL Amylase 66 (35-125) U/L Lipase 439 H (23-300) U/L HIV 1&2 Ag/Ab, 4th Gen (Nonreactive) 09/08/17 Range/Units 13:40 WBC (4.5-11.0) 10^3/ul RBC (3.5-6.1) 10^6/uL Hgb (14.0-18.0) g/dL Hct (42.0-52.0) % MCV (80.0-105.0) fl MCH (25.0-35.0) pg MCHC (31.0-37.0) g/dl RDW (11.5-14.5) % Plt Count (120.0-450.0) 10^3/uL MPV (7.0-11.0) fl POC Glucose (mg/dL) (65-110) mg/dL Amylase (35-125) U/L Lipase (23-300) U/L HIV 1&2 Ag/Ab, 4th Gen Nonreactive (Nonreactive) Laboratory Results - last 24 hr 09/08/17 09/10/17 09/10/17 13:40 07:44 10:09 WBC 8.1 D RBC 2.70 L Hgb 9.1 L Hct 26.3 L MCV 97.4 D MCH 33.7 MCHC 34.6 RDW 15.0 H Plt Count 39 L* MPV 11.1 H POC Glucose (mg/dL) 209 H Amylase Lipase HIV 1&2 Ag/Ab, 4th Gen Nonreactive 09/10/17 09/10/17 09/10/17 12:05 12:08 17:08 WBC RBC Hgb Hct MCV MCH MCHC RDW Plt Count MPV POC Glucose (mg/dL) 263 H 227 H Amylase 66 Lipase 439 H HIV 1&2 Ag/Ab, 4th Gen 09/10/17 21:33 WBC RBC Hgb Hct MCV MCH MCHC RDW Plt Count MPV POC Glucose (mg/dL) 238 H Amylase Lipase HIV 1&2 Ag/Ab, 4th Gen Fingerstick Blood Sugar Results: 238 Review of Systems - Review of Systems Systems not reviewed;Unavailable: Acuity of Condition Critical Care Progress Note - Nutrition Nutrition: Nutrition Category Date Time Status NPO Diet [DIET] Diets 09/08/17 Lunch Ordered Assessment/Plan - Assessment and Plan (Free Text) Assessment: 47yo male PMHx of DM2, HTN and alcohol abuse found to be in septic shock likely secondary to pancreatitis, aspiration pneumonia, IRWIN, transaminitis, seizures, metabolic acidosis, thrombocytopenia likely secondary to alcohol abuse, cardiac arrest s/p ROSC and respiratory failure. Plan: Neuro: Pt intubated and sedated on fentanyl @ 5cc and diprivan @ 7.6cc - will be d/ c this AM Ativan and Fentanyl prn agitation Head CT: negative Depakote d/c and changed to Keppra IV BID f/u EEG Seizure precautions Maintain normothemia Neuro consulted- recs appreciated CV: cardiac arrest s/p ROSC Pt tachycardic Maintain MAP >65 f/u Echo Monitor I&O Cardio consulted- recs appreciated Pulm: Intubated on PRVC- will titrate to maintain SpO2>92% Pt has crackles on exam and is in metabolic acidosis CXR showed pneumonia of RUL and L perihilar HOB elevated- asp precaution Duoneb, Pulmicort Pulm consulted GI: Pancreatitis and transaminitis secondary to alcohol abuse Abd U/S ordered to rule out cholecystitis Will give patient folic acid, multivitamin, thiamine Avoid nephrotoxic medications Lipase and Amylase WNL Will start feeds this AM @ 20cc/hr Hep panel negative GI consulted Surg consulted- no surgical intervention at this time Heme: Thrombocytopenia secondary to EtOH abuse Will continue to monitor platelets Hold Heparin for now Hgb stable- no overt signs of bleeding Nephro: IRWIN - prerenal with anion gap metabolic acidosis secondary to alcohol ketoacidosis as well as lactic acidosis Cr increased to 3.8, Bicarb 46 Patient given 1 dose of lasix 40mg Continue to monitor electrolytes and replace as needed Maintain euvolemia Avoid nephrotoxic agents Monitor Is and Os and Daily Weight Nephro consulted- recs appreciated ID: Septic shock secondary to pancreatitis vs aspiration pneumonia vs C. diff ID consulted- recs appreciated afebrile overnight PO Vancomycin for 10-14 days for C. Diff Zosyn d/c HIV, and legionella negative Blood and Urine culture negative Endo: Hx of DM Pt on ISS Maintain euglycemia 140-180s GI ppx: Protonix DVT ppx: SCDs- no heparin due to thrombocytopenia Diet: Tube feeds @ 20cc/hr Dispo: Prognosis guarded. Palliative care consulted. Discussed with Dr. Velasquez pierce PGY2 <Yury Eng - Last Filed: 09/11/17 09:38> CCU Objective - Vital Signs / Intake & Output Vital Signs (Last 4 hours): Vital Signs Temp Pulse Resp BP Pulse Ox 09/11/17 09:21 92/61 L 09/11/17 07:11 22 97 09/11/17 06:00 97.0 F L 118 H 96/51 L 97 09/11/17 05:50 97.0 F L 116 H 98 09/11/17 05:41 97.0 F L 115 H 86/53 L 97 09/11/17 05:40 97.0 F L 115 H 97 Intake and Output (Last 8hrs): Intake & Output 09/10/17 09/11/17 09/11/17 22:59 06:59 14:59 Intake Total 1830 1440 20 Output Total 300 50 Balance 1530 1390 20 Intake: IV 1830 1440 20 Fentanyl 60 90 NS 300 Propofol 230 150 Sodium Bicar 500 900 levo 0 meds 440 200 Output: Gastric Amount 25 Nares 25 Urine 200 25 Urethral (Chance) 200 25 Urine/Stool Mix 100 - Medications Active Medications: Active Medications Generic Name Dose Route Start Last Admin Trade Name Freq PRN Reason Stop Dose Admin Budesonide 0.5 mg 09/09/17 08:00 09/11/17 07:01 Pulmicort Respules IH 0.5 mg [id number] DENIA Administration Fentanyl 50 mcg 09/11/17 09:21 Fentanyl IVP Q4H PRN Agitation Folic Acid 1 mg 09/10/17 10:00 09/10/17 10:38 Folic Acid IVP 1 mg DAILY DENIA Administration Thiamine HCl 200 mg/ Sodium 52 mls @ 104 mls/hr 09/08/17 17:27 09/11/17 05:39 Chloride IV 09/11/17 14:01 104 mls/hr Q8 DENIA Administration Levetiracetam 1,000 mg/ Sodium 110 mls @ 460 mls/hr 09/10/17 10:00 09/10/17 21:35 Chloride IV 460 mls/hr Q12 DENIA Administration Insulin Human Regular 0 units 09/08/17 16:30 09/11/17 08:00 Humulin R Med SC 3 units ACHS DENIA Administration Protocol Levalbuterol HCl 0.63 mg 09/10/17 20:00 09/11/17 07:01 Xopenex IH 0.63 mg [id number] DENIA Administration Lorazepam 2 mg 09/10/17 09:16 09/10/17 12:16 Ativan IVP 2 mg Q3H PRN Administration Agitation Protocol Multivitamins/Vitamin C 15 ml 09/11/17 08:00 09/11/17 08:03 Multi-Delyn Liquid PO 15 ml 0800 DENIA Administration Pantoprazole Sodium 40 mg 09/10/17 10:00 09/10/17 21:35 Protonix Inj IVP 40 mg Q12 DENIA Administration Thiamine HCl 100 mg 09/12/17 10:00 Vitamin B1 Inj IV DAILY DENIA Vancomycin HCl 500 mg 09/09/17 18:00 09/11/17 05:42 Vancocin 25 Mg/Ml (Oral Use) PO 500 mg Q6 DENIA Administration Protocol - Patient Studies Lab Studies: Microbiology Studies 09/08/17 12:30 Blood Culture - Preliminary Blood-Venous NO GROWTH AFTER 48 HOURS Lab Studies 09/11/17 09/11/17 09/11/17 Range/Units 07:37 05:45 05:45 WBC 6.9 (4.5-11.0) 10^3/ul RBC 2.79 L (3.5-6.1) 10^6/uL Hgb 9.3 L (14.0-18.0) g/dL Hct 28.0 L (42.0-52.0) % MCV 100.4 D (80.0-105.0) fl MCH 33.3 (25.0-35.0) pg MCHC 33.2 (31.0-37.0) g/dl RDW 15.2 H (11.5-14.5) % Plt Count 36 L* (120.0-450.0) 10^3/uL MPV 12.1 H (7.0-11.0) fl Gran % 66.1 (50.0-68.0) % Lymph % (Auto) 9.2 L (22.0-35.0) % [place] % (Auto) 23.8 H (1.0-6.0) % Eos % (Auto) 0.6 L (1.5-5.0) % Baso % (Auto) 0.3 (0.0-3.0) % Gran # 4.54 (1.4-6.5) Lymph # 0.6 L (1.2-3.4) [place] # 1.6 H (0.1-0.6) Eos # 0.0 (0.0-0.7) Baso # 0.02 (0.0-2.0) K/mm3 Neutrophils % (Manual) 63 (50.0-70.0) % Band Neutrophils % 6 H (0-2) % Lymphocytes % (Manual) 18 L (22.0-35.0) % Atypical Lymphs % 3 H (0.0-0.0) % Monocytes % (Manual) 10 H (1.0-6.0) % Platelet Evaluation Low (NORMAL) Hypochromasia 1+ Anisocytosis (manual) 1+ Macrocytosis (manual) Slight pCO2 (35-45) mm/Hg pO2 (80-100) mm/Hg HCO3 (21-28) mmol/L ABG pH (7.35-7.45) ABG Total CO2 (22-28) mmol.L ABG O2 Saturation (95-98) % ABG O2 Content (15-23) ML/dl ABG Base Excess (-2.0-3.0) mmol/L ABG Hemoglobin (11.7-17.4) g/dL ABG Carboxyhemoglobin (0.5-1.5) % POC ABG HHb (Measured) (0-5) % ABG Methemoglobin (0.0-3.0) % ABG O2 Capacity (16-24) mL/dl Hgb O2 Saturation (95.0-98.0) % FiO2 % Sodium 143 (132-148) mmol/L Potassium 4.1 (3.6-5.0) mmol/L Chloride 107 (98-107) mmol/L Carbon Dioxide 23 (21-33) mmol/L Anion Gap 18 (10-20) BUN 46 H (7-21) mg/dL Creatinine 3.8 H (0.8-1.5) mg/dl Est GFR ( Amer) 21 Est GFR (Non-Af Amer) 17 POC Glucose (mg/dL) 210 H (65-110) mg/dL Random Glucose 194 H (70-110) mg/dL Calcium 7.2 L (8.4-10.5) mg/dL Total Bilirubin 2.2 H (0.2-1.3) mg/dL AST 527 H (17-59) U/L ALT 176 H (7-56) U/L Alkaline Phosphatase 73 (38-126) U/L Total Protein 5.6 L (5.8-8.3) g/dL Albumin 2.8 L (3.0-4.8) g/dL Globulin 2.8 gm/dL Albumin/Globulin Ratio 1.0 L (1.1-1.8) Amylase 43 (35-125) U/L Lipase 230 (23-300) U/L HIV 1&2 Ag/Ab, 4th Gen (Nonreactive) 09/11/17 09/10/17 09/10/17 Range/Units 05:07 21:33 17:08 WBC (4.5-11.0) 10^3/ul RBC (3.5-6.1) 10^6/uL Hgb (14.0-18.0) g/dL Hct (42.0-52.0) % MCV (80.0-105.0) fl MCH (25.0-35.0) pg MCHC (31.0-37.0) g/dl RDW (11.5-14.5) % Plt Count (120.0-450.0) 10^3/uL MPV (7.0-11.0) fl Gran % (50.0-68.0) % Lymph % (Auto) (22.0-35.0) % [place] % (Auto) (1.0-6.0) % Eos % (Auto) (1.5-5.0) % Baso % (Auto) (0.0-3.0) % Gran # (1.4-6.5) Lymph # (1.2-3.4) [place] # (0.1-0.6) Eos # (0.0-0.7) Baso # (0.0-2.0) K/mm3 Neutrophils % (Manual) (50.0-70.0) % Band Neutrophils % (0-2) % Lymphocytes % (Manual) (22.0-35.0) % Atypical Lymphs % (0.0-0.0) % Monocytes % (Manual) (1.0-6.0) % Platelet Evaluation (NORMAL) Hypochromasia Anisocytosis (manual) Macrocytosis (manual) pCO2 65 H (35-45) mm/Hg pO2 126.0 H (80-100) mm/Hg HCO3 22.6 (21-28) mmol/L ABG pH 7.15 L* (7.35-7.45) ABG Total CO2 24.6 (22-28) mmol.L ABG O2 Saturation 99.1 H (95-98) % ABG O2 Content 12.0 L (15-23) ML/dl ABG Base Excess -6.4 L (-2.0-3.0) mmol/L ABG Hemoglobin 8.7 L (11.7-17.4) g/dL ABG Carboxyhemoglobin 1.3 (0.5-1.5) % POC ABG HHb (Measured) 0.9 (0-5) % ABG Methemoglobin 1.7 (0.0-3.0) % ABG O2 Capacity 12.1 L (16-24) mL/dl Hgb O2 Saturation 96.2 (95.0-98.0) % FiO2 80.0 % Sodium (132-148) mmol/L Potassium (3.6-5.0) mmol/L Chloride (98-107) mmol/L Carbon Dioxide (21-33) mmol/L Anion Gap (10-20) BUN (7-21) mg/dL Creatinine (0.8-1.5) mg/dl Est GFR ( Amer) Est GFR (Non-Af Amer) POC Glucose (mg/dL) 238 H 227 H (65-110) mg/dL Random Glucose (70-110) mg/dL Calcium (8.4-10.5) mg/dL Total Bilirubin (0.2-1.3) mg/dL AST (17-59) U/L ALT (7-56) U/L Alkaline Phosphatase (38-126) U/L Total Protein (5.8-8.3) g/dL Albumin (3.0-4.8) g/dL Globulin gm/dL Albumin/Globulin Ratio (1.1-1.8) Amylase (35-125) U/L Lipase (23-300) U/L HIV 1&2 Ag/Ab, 4th Gen (Nonreactive) 09/10/17 09/10/17 09/10/17 Range/Units 12:08 12:05 10:09 WBC 8.1 D (4.5-11.0) 10^3/ul RBC 2.70 L (3.5-6.1) 10^6/uL Hgb 9.1 L (14.0-18.0) g/dL Hct 26.3 L (42.0-52.0) % MCV 97.4 D (80.0-105.0) fl MCH 33.7 (25.0-35.0) pg MCHC 34.6 (31.0-37.0) g/dl RDW 15.0 H (11.5-14.5) % Plt Count 39 L* (120.0-450.0) 10^3/uL MPV 11.1 H (7.0-11.0) fl Gran % (50.0-68.0) % Lymph % (Auto) (22.0-35.0) % [place] % (Auto) (1.0-6.0) % Eos % (Auto) (1.5-5.0) % Baso % (Auto) (0.0-3.0) % Gran # (1.4-6.5) Lymph # (1.2-3.4) [place] # (0.1-0.6) Eos # (0.0-0.7) Baso # (0.0-2.0) K/mm3 Neutrophils % (Manual) (50.0-70.0) % Band Neutrophils % (0-2) % Lymphocytes % (Manual) (22.0-35.0) % Atypical Lymphs % (0.0-0.0) % Monocytes % (Manual) (1.0-6.0) % Platelet Evaluation (NORMAL) Hypochromasia Anisocytosis (manual) Macrocytosis (manual) pCO2 (35-45) mm/Hg pO2 (80-100) mm/Hg HCO3 (21-28) mmol/L ABG pH (7.35-7.45) ABG Total CO2 (22-28) mmol.L ABG O2 Saturation (95-98) % ABG O2 Content (15-23) ML/dl ABG Base Excess (-2.0-3.0) mmol/L ABG Hemoglobin (11.7-17.4) g/dL ABG Carboxyhemoglobin (0.5-1.5) % POC ABG HHb (Measured) (0-5) % ABG Methemoglobin (0.0-3.0) % ABG O2 Capacity (16-24) mL/dl Hgb O2 Saturation (95.0-98.0) % FiO2 % Sodium (132-148) mmol/L Potassium (3.6-5.0) mmol/L Chloride (98-107) mmol/L Carbon Dioxide (21-33) mmol/L Anion Gap (10-20) BUN (7-21) mg/dL Creatinine (0.8-1.5) mg/dl Est GFR ( Amer) Est GFR (Non-Af Amer) POC Glucose (mg/dL) 263 H (65-110) mg/dL Random Glucose (70-110) mg/dL Calcium (8.4-10.5) mg/dL Total Bilirubin (0.2-1.3) mg/dL AST (17-59) U/L ALT (7-56) U/L Alkaline Phosphatase (38-126) U/L Total Protein (5.8-8.3) g/dL Albumin (3.0-4.8) g/dL Globulin gm/dL Albumin/Globulin Ratio (1.1-1.8) Amylase 66 (35-125) U/L Lipase 439 H (23-300) U/L HIV 1&2 Ag/Ab, 4th Gen (Nonreactive) 09/08/17 Range/Units 13:40 WBC (4.5-11.0) 10^3/ul RBC (3.5-6.1) 10^6/uL Hgb (14.0-18.0) g/dL Hct (42.0-52.0) % MCV (80.0-105.0) fl MCH (25.0-35.0) pg MCHC (31.0-37.0) g/dl RDW (11.5-14.5) % Plt Count (120.0-450.0) 10^3/uL MPV (7.0-11.0) fl Gran % (50.0-68.0) % Lymph % (Auto) (22.0-35.0) % [place] % (Auto) (1.0-6.0) % Eos % (Auto) (1.5-5.0) % Baso % (Auto) (0.0-3.0) % Gran # (1.4-6.5) Lymph # (1.2-3.4) [place] # (0.1-0.6) Eos # (0.0-0.7) Baso # (0.0-2.0) K/mm3 Neutrophils % (Manual) (50.0-70.0) % Band Neutrophils % (0-2) % Lymphocytes % (Manual) (22.0-35.0) % Atypical Lymphs % (0.0-0.0) % Monocytes % (Manual) (1.0-6.0) % Platelet Evaluation (NORMAL) Hypochromasia Anisocytosis (manual) Macrocytosis (manual) pCO2 (35-45) mm/Hg pO2 (80-100) mm/Hg HCO3 (21-28) mmol/L ABG pH (7.35-7.45) ABG Total CO2 (22-28) mmol.L ABG O2 Saturation (95-98) % ABG O2 Content (15-23) ML/dl ABG Base Excess (-2.0-3.0) mmol/L ABG Hemoglobin (11.7-17.4) g/dL ABG Carboxyhemoglobin (0.5-1.5) % POC ABG HHb (Measured) (0-5) % ABG Methemoglobin (0.0-3.0) % ABG O2 Capacity (16-24) mL/dl Hgb O2 Saturation (95.0-98.0) % FiO2 % Sodium (132-148) mmol/L Potassium (3.6-5.0) mmol/L Chloride (98-107) mmol/L Carbon Dioxide (21-33) mmol/L Anion Gap (10-20) BUN (7-21) mg/dL Creatinine (0.8-1.5) mg/dl Est GFR ( Amer) Est GFR (Non-Af Amer) POC Glucose (mg/dL) (65-110) mg/dL Random Glucose (70-110) mg/dL Calcium (8.4-10.5) mg/dL Total Bilirubin (0.2-1.3) mg/dL AST (17-59) U/L ALT (7-56) U/L Alkaline Phosphatase (38-126) U/L Total Protein (5.8-8.3) g/dL Albumin (3.0-4.8) g/dL Globulin gm/dL Albumin/Globulin Ratio (1.1-1.8) Amylase (35-125) U/L Lipase (23-300) U/L HIV 1&2 Ag/Ab, 4th Gen Nonreactive (Nonreactive) Laboratory Results - last 24 hr 09/08/17 09/10/17 09/10/17 13:40 10:09 12:05 WBC 8.1 D RBC 2.70 L Hgb 9.1 L Hct 26.3 L MCV 97.4 D MCH 33.7 MCHC 34.6 RDW 15.0 H Plt Count 39 L* MPV 11.1 H Gran % Lymph % (Auto) [place] % (Auto) Eos % (Auto) Baso % (Auto) Gran # Lymph # [place] # Eos # Baso # Neutrophils % (Manual) Band Neutrophils % Lymphocytes % (Manual) Atypical Lymphs % Monocytes % (Manual) Platelet Evaluation Hypochromasia Anisocytosis (manual) Macrocytosis (manual) pCO2 pO2 HCO3 ABG pH ABG Total CO2 ABG O2 Saturation ABG O2 Content ABG Base Excess ABG Hemoglobin ABG Carboxyhemoglobin POC ABG HHb (Measured) ABG Methemoglobin ABG O2 Capacity Hgb O2 Saturation FiO2 Sodium Potassium Chloride Carbon Dioxide Anion Gap BUN Creatinine Est GFR ( Amer) Est GFR (Non-Af Amer) POC Glucose (mg/dL) Random Glucose Calcium Total Bilirubin AST ALT Alkaline Phosphatase Total Protein Albumin Globulin Albumin/Globulin Ratio Amylase 66 Lipase 439 H HIV 1&2 Ag/Ab, 4th Gen Nonreactive 09/10/17 09/10/17 09/10/17 12:08 17:08 21:33 WBC RBC Hgb Hct MCV MCH MCHC RDW Plt Count MPV Gran % Lymph % (Auto) [place] % (Auto) Eos % (Auto) Baso % (Auto) Gran # Lymph # [place] # Eos # Baso # Neutrophils % (Manual) Band Neutrophils % Lymphocytes % (Manual) Atypical Lymphs % Monocytes % (Manual) Platelet Evaluation Hypochromasia Anisocytosis (manual) Macrocytosis (manual) pCO2 pO2 HCO3 ABG pH ABG Total CO2 ABG O2 Saturation ABG O2 Content ABG Base Excess ABG Hemoglobin ABG Carboxyhemoglobin POC ABG HHb (Measured) ABG Methemoglobin ABG O2 Capacity Hgb O2 Saturation FiO2 Sodium Potassium Chloride Carbon Dioxide Anion Gap BUN Creatinine Est GFR ( Amer) Est GFR (Non-Af Amer) POC Glucose (mg/dL) 263 H 227 H 238 H Random Glucose Calcium Total Bilirubin AST ALT Alkaline Phosphatase Total Protein Albumin Globulin Albumin/Globulin Ratio Amylase Lipase HIV 1&2 Ag/Ab, 4th Gen 09/11/17 09/11/17 09/11/17 05:07 05:45 05:45 WBC 6.9 RBC 2.79 L Hgb 9.3 L Hct 28.0 L MCV 100.4 D MCH 33.3 MCHC 33.2 RDW 15.2 H Plt Count 36 L* MPV 12.1 H Gran % 66.1 Lymph % (Auto) 9.[address] [place] % (Auto) 23.8 H Eos % (Auto) 0.6 L Baso % (Auto) 0.3 Gran # 4.54 Lymph # 0.[address] [place] # 1.6 H Eos # 0.0 Baso # 0.02 Neutrophils % (Manual) 63 Band Neutrophils % 6 H Lymphocytes % (Manual) 18 L Atypical Lymphs % 3 H Monocytes % (Manual) 10 H Platelet Evaluation Low Hypochromasia 1+ Anisocytosis (manual) 1+ Macrocytosis (manual) Slight pCO2 65 H pO2 126.0 H HCO3 22.6 ABG pH 7.15 L* ABG Total CO2 24.6 ABG O2 Saturation 99.1 H ABG O2 Content 12.0 L ABG Base Excess -6.4 L ABG Hemoglobin 8.7 L ABG Carboxyhemoglobin 1.3 POC ABG HHb (Measured) 0.9 ABG Methemoglobin 1.7 ABG O2 Capacity 12.1 L Hgb O2 Saturation 96.2 FiO2 80.0 Sodium 143 Potassium 4.1 Chloride 107 Carbon Dioxide 23 Anion Gap 18 BUN 46 H Creatinine 3.8 H Est GFR ( Amer) 21 Est GFR (Non-Af Amer) 17 POC Glucose (mg/dL) Random Glucose 194 H Calcium 7.2 L Total Bilirubin 2.2 H AST 527 H ALT 176 H Alkaline Phosphatase 73 Total Protein 5.6 L Albumin 2.8 L Globulin 2.8 Albumin/Globulin Ratio 1.0 L Amylase 43 Lipase 230 HIV 1&2 Ag/Ab, 4th Gen 09/11/17 07:37 WBC RBC Hgb Hct MCV MCH MCHC RDW Plt Count MPV Gran % Lymph % (Auto) [place] % (Auto) Eos % (Auto) Baso % (Auto) Gran # Lymph # [place] # Eos # Baso # Neutrophils % (Manual) Band Neutrophils % Lymphocytes % (Manual) Atypical Lymphs % Monocytes % (Manual) Platelet Evaluation Hypochromasia Anisocytosis (manual) Macrocytosis (manual) pCO2 pO2 HCO3 ABG pH ABG Total CO2 ABG O2 Saturation ABG O2 Content ABG Base Excess ABG Hemoglobin ABG Carboxyhemoglobin POC ABG HHb (Measured) ABG Methemoglobin ABG O2 Capacity Hgb O2 Saturation FiO2 Sodium Potassium Chloride Carbon Dioxide Anion Gap BUN Creatinine Est GFR ( Amer) Est GFR (Non-Af Amer) POC Glucose (mg/dL) 210 H Random Glucose Calcium Total Bilirubin AST ALT Alkaline Phosphatase Total Protein Albumin Globulin Albumin/Globulin Ratio Amylase Lipase HIV 1&2 Ag/Ab, 4th Gen Attending/Attestation - Attestation I have personally seen and examined this patient.: Yes I have fully participated in the care of the patient.: Yes I have reviewed all pertinent clinical information: Yes Notes (Text): 09/11/17 09:35 The patient was seen and examined at the bedside. Patient care was discussed with resident Medical records, lab studies, and imaging were reviewed and management issues were discussed and formulated. Last 24H events reviewed. Agree with above treatment plans as outlined in 's note with addition of the following: -s\p CPR arrest -hemodynamic monitoring to maintain MAP>65; currently off vasopressor support -hold-anti HTN meds while B\P <120; f\u Echo; cardiology team eval -Mechanical ventilation and o2 supplementation to maintain Spo2 >90 Pao2>60 -monitor for TV 6ml\kg IBW and plateau pressure <30 -continue nebs and pulmonary toilet -ABG and CXR reviewed ; Fio2 decreased to 60% and resp rate increased to 22; f\ u repeat ABG -continue with broad spectrum Abx as per ID team and f\u cultures -f\u Bun\Cr and U\o; d\c IVF; decreased U\O noted , diuresis with lasix; renal team f\u -tube feed diet and aspiration precautions -GI team f\u; f\u amylase and lipase (improved) and f\u LFT -f\u abdominal US -continue neuro checks and continue keppra; seizure precaution; f\u EEG -neurology f\u; d\c propofol; sedation and pain meds PRN -Thiamine, Folate and MVI; monitor for ETOH withdrawal; continue Ativan PRN -surgical eval appreciated -f\u serial CBC; monitor for bleed; consider heme\onc eval -DVT\PUD prophylaxis CCM f\u time 38min
[2017-09-11 07:01] LABS: BASO # 0.02 K/mm3 (0.0-2.0); BASO % 0.3 % (0.0-3.0); EOS % 0.6 % (1.5-5.0); GRAN # 4.54 (1.4-6.5); GRAN % 66.1 % (50.0-68.0); HEMOGLOBIN 9.3 g/dL (14.0-18.0); LYMPH # 0.6 (1.2-3.4); LYMPH % 9.2 % (22.0-35.0); MEAN CELL VOLUME 100.4 fl (80.0-105.0); MEAN CORPUSCULAR HEMOGLOBIN 33.3 pg (25.0-35.0); MEAN CORPUSCULAR HGB CONC 33.2 g/dl (31.0-37.0); MEAN PLATELET VOLUME 12.1 fl (7.0-11.0); MONO # 1.6 (0.1-0.6); MONO % 23.8 % (1.0-6.0); PLATELET COUNT 36 10^3/uL (120.0-450.0); RBC 2.79 10^6/uL (3.5-6.1); RED CELL DISTRIBUTION WIDTH 15.2 % (11.5-14.5); WHITE BLOOD COUNT 6.9 10^3/ul (4.5-11.0)
[2017-09-11] MEDS: Budesonide 0.5 mg/2 ml Inhal Susp UD IH SCH ×2 (07:01→20:17)
[2017-09-11 07:12] LABS: ARTERIAL BLOOD GAS PH 7.15 (7.35-7.45)
[2017-09-11 07:20] LABS: ALBUMIN 2.8 g/dL (3.0-4.8); CALCIUM 7.2 mg/dL (8.4-10.5)
[2017-09-11] MEDS: Insulin Reg-MEDIUM-Coverage SC SCH ×5 (08:00→23:45)
[2017-09-11] MEDS: Multi Vitamins 15 mL UD Oral Solution PO SCH (08:03)
--- NOTE | 2017-09-11 08:32 | PN ---
DATE: 09/10/2017 SUBJECTIVE: I was asked to see this patient because of acute pancreatitis. The patient was admitted from the emergency room with pancreatitis and sepsis, rested on the stretcher and is intubated now in the ICU. PHYSICAL EXAMINATION: GENERAL: The patient is intubated, not responsive to pain, otherwise unremarkable. Obviously, he does not respond. Having diarrhea. VITAL SIGNS: Show a pulse presently of 140. ABDOMEN: Distended, soft without obvious scars. No guarding or rebound, but he is certainly intubated. EXTREMITIES: No clubbing, cyanosis, or edema. LABORATORY DATA: His platelet count dangerously low at 39, hemoglobin down to 9.1 from 13.8. Coags are relatively normal. Calcium is 7.7, bilirubin 2.3, AST 600, ALT 174. Admission amylase is 495 and lipase 13,765. CAT scan showed consistent with pancreatitis without pseudocyst. IMPRESSION AND PLAN: Clostridium difficile with pancreatitis, sepsis, systemic inflammatory response syndrome. We will follow peripherally. We will eventually need a pancreatic protocol CAT scan, but for now, IV fluids and support should be fine. Jasen Pablo MD
--- NOTE | 2017-09-11 08:49 | RAD ---
HISTORY: Intubated COMPARISON: 09/10/2017 FINDINGS: LUNGS: Multifocal bilateral pulmonary opacities suspicious for pneumonia. There has been slight improvement in the right upper lobe and left upper lobe opacities compared to prior examination. PLEURA: No significant pleural effusion identified, no pneumothorax apparent. CARDIOVASCULAR: Normal heart size. ET tube, NG tube and right IJ central venous catheter are all grossly unchanged in position. OSSEOUS STRUCTURES: No significant abnormalities. VISUALIZED UPPER ABDOMEN: Normal. OTHER FINDINGS: None. IMPRESSION: Slight improvement in infiltrate in the upper lobes. Multifocal bilateral pulmonary infiltrates.
[2017-09-11 09:27] LABS: BAND 6 % (0-2); MONOCYTE 10 % (1.0-6.0)
[2017-09-11 09:28] LABS: LYMPHOCYTE 18 % (22.0-35.0); NEUTROPHIL 63 % (50.0-70.0)
[2017-09-11 09:29] LABS: ANISOCYTOSIS 1+; ATYPICAL LYMPHOCYTE 3 % (0.0-0.0); HYPOCHROMIA 1+; PLATELET ESTIMATE LOW (NORMAL)
[2017-09-11] MEDS: levETIRAcetam 1,000 MG in Sodium Chloride 0.9% 100 ML IV SCH ×2 (10:27→21:02)
--- NOTE | 2017-09-11 10:33 | US ---
HISTORY: pancreatitis, COMPARISON: None. TECHNIQUE: Sonographic evaluation of the abdomen. FINDINGS: LIVER: Measures 16.0 cm. Diffusely increased echogenicity of the liver parenchyma. Consistent with fatty infiltration. Smooth contour. No mass. Normal hepatopetal portal venous flow. No intrahepatic biliary ductal dilatation. GALLBLADDER: Unremarkable. No gallstones. COMMON BILE DUCT: Measures 5 mm. No stones. No dilatation. PANCREAS: Unremarkable as visualized. No mass. No ductal dilatation. RIGHT KIDNEY: Measures 12.6cm. Normal echogenicity. No calculus, mass, or hydronephrosis. LEFT KIDNEY: Measures 12.1cm. Normal echogenicity. No calculus, mass, or hydronephrosis. SPLEEN: Normal in size and contour. No mass. AORTA: No aneurysmal dilatation. IVC: Unremarkable. OTHER FINDINGS: None. IMPRESSION: Fatty infiltration of the liver. No evidence of cholelithiasis or cholecystitis. No sonographic evidence of acute pancreatitis.
[2017-09-11 11:31] LABS: ARTERIAL BLOOD GAS HEMOGLOBIN 9.3 g/dL (11.7-17.4); ARTERIAL BLOOD GAS O2 CAPACITY 12.7 mL/dl (16-24); ARTERIAL BLOOD GAS O2 CONTENT 12.3 ML/dl (15-23); ARTERIAL BLOOD GAS O2 SAT 96.6 % (95-98); ARTERIAL BLOOD GAS PCO2 49 mm/Hg (35-45); ARTERIAL BLOOD GAS PH 7.26 (7.35-7.45); ARTERIAL BLOOD GAS TCO2 23.5 mmol.L (22-28)
--- NOTE | 2017-09-11 14:12 | CP.PCM.PN ---
<Jay Harden - Last Filed: 09/11/17 14:21> Subjective - Date & Time of Evaluation Date of Evaluation: 09/11/17 Time of Evaluation: 11:09 - Subjective Subjective: Jay Harden PGY1 IM Progress Note Patient was seen and examined in ICU. He remains intubated and sedated. He is in no distress and there were no acute overnight events. Patient is on pressors PRN for low BP. There is loose dark stools in rectal tube bag and lazo in. ROS unobtainable. Objective - Vital Signs/Intake and Output Vital Signs (last 24 hours): Temp Pulse Resp BP Pulse Ox 97.0 F L 118 H 22 92/61 L 97 09/11/17 06:00 09/11/17 06:00 09/11/17 07:11 09/11/17 09:21 09/11/17 07:11 Intake and Output: 09/11/17 09/11/17 06:59 18:59 Intake Total 3170 20 Output Total 350 Balance 2820 20 - Medications Medications: Current Medications Budesonide (Pulmicort Respules) 0.5 mg IH [id number] [facility] Last Admin: 09/11/17 07:01 Dose: 0.5 mg Fentanyl (Fentanyl) 50 mcg IVP Q4H PRN PRN Reason: Agitation Folic Acid (Folic Acid) 1 mg IVP DAILY [facility] Last Admin: 09/11/17 10:40 Dose: 1 mg Levetiracetam 1,000 mg/ Sodium (Chloride) 110 mls @ 460 mls/hr IV Q12 [facility] Last Admin: 09/11/17 10:27 Dose: 460 mls/hr Insulin Human Regular (Humulin R Med) 0 units SC ACHS [facility] PRN Reason: Protocol Last Admin: 09/11/17 08:00 Dose: 3 units Levalbuterol HCl (Xopenex) 0.63 mg IH [id number] [facility] Last Admin: 09/11/17 13:19 Dose: 0.63 mg Lorazepam (Ativan) 2 mg IVP Q3H PRN; Protocol PRN Reason: Agitation Last Admin: 09/10/17 12:16 Dose: 2 mg Multivitamins/Vitamin C (Multi-Delyn Liquid) 15 ml PO 0800 [facility] Last Admin: 09/11/17 08:03 Dose: 15 ml Pantoprazole Sodium (Protonix Inj) 40 mg IVP Q12 [facility] Last Admin: 09/11/17 10:25 Dose: 40 mg Thiamine HCl (Vitamin B1 Inj) 100 mg IV DAILY [facility] Vancomycin HCl (Vancocin 25 Mg/Ml (Oral Use)) 500 mg PO Q6 [facility] PRN Reason: Protocol Last Admin: 09/11/17 05:42 Dose: 500 mg - Labs Labs: 09/11/17 05:45 09/11/17 05:45 PT 13.0 SECONDS (9.4-12.5) H 09/08/17 09:21 INR 1.13 (0.93-1.08) H 09/08/17 09:21 APTT 33.5 Seconds (25.1-36.5) 09/08/17 09:21 - Additional Findings Additional findings: - Constitutional Appears: No Acute Distress - Head Exam Head Exam: ATRAUMATIC, NORMAL INSPECTION - Eye Exam Eye Exam: PERRL (sluggish), Scleral icterus - ENT Exam Additional comments: intubated - Neck Exam Neck Exam: Normal Inspection Additional comments: R IJ in place - Respiratory Exam Respiratory Exam: absent: Rales, Rhonchi, Wheezes Additional comments: ventilated - Cardiovascular Exam Cardiovascular Exam: Tachycardia, +S1, +S2 - GI/Abdominal Exam GI & Abdominal Exam: Distended. absent: Tenderness Additional comments: rectal tube in place, draining dark loose stools lazo catheter in place - Extremities Exam Extremities Exam: Normal Inspection - Back Exam Back Exam: NORMAL INSPECTION - Neurological Exam Neurological Exam: Altered - Psychiatric Exam Additional comments: unable to assess - Skin Skin Exam: Normal Color Assessment and Plan - Assessment and Plan (Free Text) Assessment: 47yo M with a PMH of DM2, HTN and alcohol use who presented with URI symptoms such as cough, shortness of breath, palpitations. Last alcoholic drink was night prior to admission. Patient was admitted for septic shock (with lactate of 7.7 on presentation), high anion gap metabolic acidosis, acute pancreatitis 2 /2 ETOH vs triglycerides, IRWIN vs CKD, elevated LFTs likely 2/2 ETOH, elevated BNP, hyponatremia, and hypokalemia. s/p cardiac arrest and ROSC. Upon ROSC, patient vomited and likely aspirated, but was turned to the side and suctioned. Intubated and on vent with sedation in ICU. Patient intially required pressors to maintain BP but is no longer needing them. Remains on Keppra for seizure ppx. IRWIN is worsened. Liver enzymes are improving. Lipase trending down so pancreatitis improving. Plan: 1. Septic shock - continue ICU monitoring due to unstable vitals and altered mental state - Lipase and Amylase elevated indicating pacreatitis 2/2 ETOH vs TG (>1000), trending down - start tube foods per GI - CT Findings are concerning for acute pancreatitis w/o ductal dilatation, calcifications or pseudocyst. alcoholic liver steatosis - pressors PRN - Maintain normothermia - tylenol supp PRN - d/c Zosyn - blood cultures showed no growth - urine cultures showed no growth - stool cultures indicating cdiff +Ag/-Toxin; pt on contact precautions and PO Vanc - nose/trach aspirate culture pending - Monitor vitals - Maintain MAP > 65 - ID consulted for management of septic shock, recs appreciated - GI consulted for alcoholic pancreatitis and +stool occult blood, recs appreciated - Surgery consulted for abdominal distention, recs appreciated - Palliative care consulted for advanced directives 2. Anion gap metabolic acidosis likely 2/2 lactic acidosis and ETOH - s/p cardiac arrest 09/08 - lactate was elevated on presentation, however, increase likely 2/2 cardiac arrest - patient was intubated to protect airway due to hypoxemia and vomiting to reduce risk of aspiration - currently on Fentanyl PRN - ativan prn agitation added - Maintain SaO2 > 90% - TSH and A1C WNL - Cardiology consulted, recs appreciated 3. IRWIN vs CKD a/w Hypophosphatemia - FENa 3.2 indicating ATN - given septic shock, likely component of pre-renal and intrinsic ischemic ATN ( coarse granular casts seen on UA) - continue fluids - avoid nephrotoxins - patient might require dialysis - Nephrology consulted, recs appreciated 4. ETOH withdrawal seizures - cont Keppra for seizure ppx - ETOH level was elevated on admission, patient stated last drink was 09/07 PM - cont IV Thiamine - UDS negative other than ETOH level - CT Head was unremarkable - Neurology consulted, recs appreciated 5. 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 Transaminitis likely w/ underlying liver disease - likely 2/2 shock liver and chronic ETOH use since INR is elevated - hepatitis panel negative - HIV pending - continue to monitor 7. Poor prognosis - continue to discussion with to establish understanding of condition - Palliative care consulted Patient was seen, examined and discussed with attending, Dr. Frances Harden PGY1 Pager # [phone] <Jeanne Daniels B - Last Filed: 09/11/17 14:40> Objective - Vital Signs/Intake and Output Vital Signs (last 24 hours): Temp Pulse Resp BP Pulse Ox 97.0 F L 118 H 22 92/61 L 97 09/11/17 06:00 09/11/17 06:00 09/11/17 07:11 09/11/17 09:21 09/11/17 07:11 Intake and Output: 09/11/17 09/11/17 06:59 18:59 Intake Total 3170 20 Output Total 350 Balance 2820 20 - Medications Medications: Current Medications Budesonide (Pulmicort Respules) 0.5 mg IH [id number] [facility] Last Admin: 09/11/17 07:01 Dose: 0.5 mg Fentanyl (Fentanyl) 50 mcg IVP Q4H PRN PRN Reason: Agitation Folic Acid (Folic Acid) 1 mg IVP DAILY [facility] Last Admin: 09/11/17 10:40 Dose: 1 mg Levetiracetam 1,000 mg/ Sodium (Chloride) 110 mls @ 460 mls/hr IV Q12 [facility] Last Admin: 09/11/17 10:27 Dose: 460 mls/hr Insulin Human Regular (Humulin R Med) 0 units SC ACHS [facility] PRN Reason: Protocol Last Admin: 09/11/17 08:00 Dose: 3 units Levalbuterol HCl (Xopenex) 0.63 mg IH [id number] [facility] Last Admin: 09/11/17 13:19 Dose: 0.63 mg Lorazepam (Ativan) 2 mg IVP Q3H PRN; Protocol PRN Reason: Agitation Last Admin: 09/10/17 12:16 Dose: 2 mg Multivitamins/Vitamin C (Multi-Delyn Liquid) 15 ml PO 0800 [facility] Last Admin: 09/11/17 08:03 Dose: 15 ml Pantoprazole Sodium (Protonix Inj) 40 mg IVP Q12 [facility] Last Admin: 09/11/17 10:25 Dose: 40 mg Thiamine HCl (Vitamin B1 Inj) 100 mg IV DAILY [facility] Vancomycin HCl (Vancocin 25 Mg/Ml (Oral Use)) 500 mg PO Q6 [facility] PRN Reason: Protocol Last Admin: 09/11/17 05:42 Dose: 500 mg - Labs Labs: 09/11/17 05:45 09/11/17 05:45 PT 13.0 SECONDS (9.4-12.5) H 09/08/17 09:21 INR 1.13 (0.93-1.08) H 09/08/17 09:21 APTT 33.5 Seconds (25.1-36.5) 09/08/17 09:21 Attending/Attestation - Attestation I have personally seen and examined this patient.: Yes I have fully participated in the care of the patient.: Yes I have reviewed all pertinent clinical information, including history, physical exam and plan: Yes Notes (Text): I have seen and examined the patient at bedside with the resident. Agree with the above note with the following additions/ exceptions: Briefly this is 47 year male with history of alcohol abuse, DM-2 who came initially for abdominal pain and dyspnea. He was found to be severely acidotic and had elevated lactic acid level. Currently intubated on 60% FiO2 with PEEP of 10. He is off sedation and levophed. Will assess his mental status off sedation. He is unresponsive at this time. He has fixed pupils. CXR revealed multifocal pulmonary infiltrates more suggestive of volume overload. Procal high probably due to renal failure. Blood and urine culture negative. Zosyn was stopped. He continues to have diarrhea. Rectal tube is in. Continue PO vancomycin for Cdiff colitis. ID on board. He has acute kidney injury due to SIRS vs ATN. UO is only 350 ml. Plan for HD today for volume overload. IR will be consulted for catheter placement. Repeat lipase level normalized. Abdomen ultrasound revealed no evidence of pancreatitis. Tube feeds will be started today. Echo revealed normal EF. Continue seizure precautions, keppra, thiamine, folate and MVI. EEG result pending. Hyponatremia and hypokalemia has resolved. Elevated LFTs probably due to worsening liver failure due to shock liver/alcohol abuse. He has worsening kidney function. UO 1500 ml. Will closely monitor Is Os. He has anemia and thrombocytopenia which can be due to alcohol induced BM suppression vs sepsis induced coagulopathy. . Overall prognosis is poor. Palliative care consult pending. Dr Jeanne Daniels
--- NOTE | 2017-09-11 15:39 | CP.PCM.CON ---
History of Present Illness - History of Present Illness History of Present Illness: Palliative consult requested by Dr David Ibarra Reason: Goals of care 47 year old female with history of DM,HTN and alcohol abuse who presented with diffuse abdominal pain, progressive alteration in mental status and tachycardia. Found to be in severe metabolic acidosis.Progressed to asystole. ACLS> intubated>ROSC. Noted to have tonic seizures. PMHx: DM, HTN, ETOH use. Social History: Smoker, chronic alcohol use, no drug history., lives with spouse. Family History: Unknown Advance Care Planning: The patient does not have an Advanced Directive. Review of Systems: As per HPI, unable to obtain intubated Past Patient History - Infectious Disease Hx of Infectious Diseases: None - Past Social History Smoking Status: Light Smoker < 10 Cigarettes Daily - CARDIAC Hx Hypertension: Yes - NEUROLOGICAL Hx Seizures: Yes - ENDOCRINE/METABOLIC Hx Diabetes Mellitus Type 2: Yes - INTEGUMENTARY Other/Comment: dry scaley hard skin to both feet toes, dry skin to legs, thick toenails both feet - MUSCULOSKELETAL/RHEUMATOLOGICAL Hx Falls: No - PSYCHIATRIC Hx Substance Use: No - SURGICAL HISTORY Hx Surgeries: No Meds Allergies/Adverse Reactions: Allergies Allergy/AdvReac Type Severity Reaction Status Date / Time No Known Allergies Allergy Verified 09/08/17 09:10 - Medications Medications: Current Medications Budesonide (Pulmicort Respules) 0.5 mg IH [id number] [facility] Last Admin: 09/11/17 07:01 Dose: 0.5 mg Fentanyl (Fentanyl) 50 mcg IVP Q4H PRN PRN Reason: Agitation Folic Acid (Folic Acid) 1 mg IVP DAILY [facility] Last Admin: 09/11/17 10:40 Dose: 1 mg Levetiracetam 1,000 mg/ Sodium (Chloride) 110 mls @ 460 mls/hr IV Q12 [facility] Last Admin: 09/11/17 10:27 Dose: 460 mls/hr Insulin Human Regular (Humulin R Med) 0 units SC ACHS [facility] PRN Reason: Protocol Last Admin: 09/11/17 11:45 Dose: 5 units Levalbuterol HCl (Xopenex) 0.63 mg IH [id number] [facility] Last Admin: 09/11/17 13:19 Dose: 0.63 mg Lorazepam (Ativan) 2 mg IVP Q3H PRN; Protocol PRN Reason: Agitation Last Admin: 09/10/17 12:16 Dose: 2 mg Multivitamins/Vitamin C (Multi-Delyn Liquid) 15 ml PO 0800 [facility] Last Admin: 09/11/17 08:03 Dose: 15 ml Pantoprazole Sodium (Protonix Inj) 40 mg IVP Q12 [facility] Last Admin: 09/11/17 10:25 Dose: 40 mg Thiamine HCl (Vitamin B1 Inj) 100 mg IV DAILY [facility] Vancomycin HCl (Vancocin 25 Mg/Ml (Oral Use)) 500 mg PO Q6 [facility] PRN Reason: Protocol Last Admin: 09/11/17 14:16 Dose: 500 mg Physical Exam - Constitutional Appears: Chronically Ill - Head Exam Head Exam: NORMAL INSPECTION - Eye Exam Additional comments: sluggish - ENT Exam ENT Exam: Mucous Membranes Moist - Neck Exam Neck exam: Positive for: Normal Inspection - Respiratory Exam Respiratory Exam: Decreased Breath Sounds, Clear to Auscultation Bilateral - Cardiovascular Exam Cardiovascular Exam: Tachycardia, +S1, +S2 - GI/Abdominal Exam GI & Abdominal Exam: Diminished Bowel Sounds, Distended, Firm - Exam Additional comments: oliguria - Back Exam Back exam: NORMAL INSPECTION - Neurological Exam Neurological exam: Altered - Skin Skin Exam: Dry, Warm - Additional Findings Additional findings: palliative performance scale rating 20% Results - Vital Signs Recent Vital Signs: Last Vital Signs Temp 97.0 F L 09/11/17 06:00 Pulse 118 H 09/11/17 06:00 Resp 22 09/11/17 07:11 BP 92/61 L 09/11/17 09:21 Pulse Ox 97 09/11/17 07:11 - Labs Result Diagrams: 09/11/17 05:45 09/11/17 05:45 Labs: Laboratory Results - last 24 hr 09/10/17 09/10/17 09/11/17 17:08 21:33 05:07 WBC RBC Hgb Hct MCV MCH MCHC RDW Plt Count MPV Gran % Lymph % (Auto) [place] % (Auto) Eos % (Auto) Baso % (Auto) Gran # Lymph # [place] # Eos # Baso # Neutrophils % (Manual) Band Neutrophils % Lymphocytes % (Manual) Atypical Lymphs % Monocytes % (Manual) Platelet Evaluation Hypochromasia Anisocytosis (manual) Macrocytosis (manual) pCO2 65 H pO2 126.0 H HCO3 22.6 ABG pH 7.15 L* ABG Total CO2 24.6 ABG O2 Saturation 99.1 H ABG O2 Content 12.0 L ABG Base Excess -6.4 L ABG Hemoglobin 8.7 L ABG Carboxyhemoglobin 1.3 POC ABG HHb (Measured) 0.9 ABG Methemoglobin 1.7 ABG O2 Capacity 12.1 L Hgb O2 Saturation 96.2 FiO2 80.0 Sodium Potassium Chloride Carbon Dioxide Anion Gap BUN Creatinine Est GFR ( Amer) Est GFR (Non-Af Amer) POC Glucose (mg/dL) 227 H 238 H Random Glucose Calcium Total Bilirubin AST ALT Alkaline Phosphatase Total Protein Albumin Globulin Albumin/Globulin Ratio Amylase Lipase 09/11/17 09/11/17 09/11/17 05:45 05:45 07:37 WBC 6.9 RBC 2.79 L Hgb 9.3 L Hct 28.0 L MCV 100.4 D MCH 33.3 MCHC 33.2 RDW 15.2 H Plt Count 36 L* MPV 12.1 H Gran % 66.1 Lymph % (Auto) 9.2 L [place] % (Auto) 23.8 H Eos % (Auto) 0.6 L Baso % (Auto) 0.3 Gran # 4.54 Lymph # 0.6 L [place] # 1.6 H Eos # 0.0 Baso # 0.02 Neutrophils % (Manual) 63 Band Neutrophils % 6 H Lymphocytes % (Manual) 18 L Atypical Lymphs % 3 H Monocytes % (Manual) 10 H Platelet Evaluation Low Hypochromasia 1+ Anisocytosis (manual) 1+ Macrocytosis (manual) Slight pCO2 pO2 HCO3 ABG pH ABG Total CO2 ABG O2 Saturation ABG O2 Content ABG Base Excess ABG Hemoglobin ABG Carboxyhemoglobin POC ABG HHb (Measured) ABG Methemoglobin ABG O2 Capacity Hgb O2 Saturation FiO2 Sodium 143 Potassium 4.1 Chloride 107 Carbon Dioxide 23 Anion Gap 18 BUN 46 H Creatinine 3.8 H Est GFR ( Amer) 21 Est GFR (Non-Af Amer) 17 POC Glucose (mg/dL) 210 H Random Glucose 194 H Calcium 7.2 L Total Bilirubin 2.2 H AST 527 H ALT 176 H Alkaline Phosphatase 73 Total Protein 5.6 L Albumin 2.8 L Globulin 2.8 Albumin/Globulin Ratio 1.0 L Amylase 43 Lipase 230 09/11/17 09/11/17 11:20 12:03 WBC RBC Hgb Hct MCV MCH MCHC RDW Plt Count MPV Gran % Lymph % (Auto) [place] % (Auto) Eos % (Auto) Baso % (Auto) Gran # Lymph # [place] # Eos # Baso # Neutrophils % (Manual) Band Neutrophils % Lymphocytes % (Manual) Atypical Lymphs % Monocytes % (Manual) Platelet Evaluation Hypochromasia Anisocytosis (manual) Macrocytosis (manual) pCO2 49 H pO2 64.0 L HCO3 22.0 ABG pH 7.26 L ABG Total CO2 23.5 ABG O2 Saturation 96.6 ABG O2 Content 12.3 L ABG Base Excess -5.0 L ABG Hemoglobin 9.3 L ABG Carboxyhemoglobin 1.7 H POC ABG HHb (Measured) 3.3 ABG Methemoglobin 1.5 ABG O2 Capacity 12.7 L Hgb O2 Saturation 93.5 L FiO2 60.0 Sodium Potassium Chloride Carbon Dioxide Anion Gap BUN Creatinine Est GFR ( Amer) Est GFR (Non-Af Amer) POC Glucose (mg/dL) 255 H Random Glucose Calcium Total Bilirubin AST ALT Alkaline Phosphatase Total Protein Albumin Globulin Albumin/Globulin Ratio Amylase Lipase Assessment & Plan - Assessment and Plan (Free Text) Assessment: 47 year old male with history of DM,alcoholism who is admitted with diabetic ketoacidosis,respiratory failure, seizures, IRWIN, transaminitis, pancreatitis. The patient is off sedation. He reacts to painful stimuli. Pupils are sluggish. GCS 4. CT showed no acute intracranial abnormality, mild microvascular changes. EEG pending. Chest xray multifocal bilateral infiltrates. I spoke with patients via phone. Explained that the it would be helpful to meet with her in order to establish future goals of care. unable to meet with team until . states patient does not have an advanced directive. wants him to remain full code. Plan: Palliative support in establishing goals of care
[2017-09-11 16:09] LABS: INR 1.21 (0.93-1.08); PARTIAL THROMBOPLASTIN TIME 35.8 Seconds (25.1-36.5); PROTHROMBIN TIME 13.8 SECONDS (9.4-12.5)
--- NOTE | 2017-09-11 16:47 | CP.PCM.PN ---
Subjective - Date & Time of Evaluation Date of Evaluation: 09/11/17 Time of Evaluation: 16:45 - Subjective Subjective: Follow up Nephrology Consultation: Assessment: critical Acute Kidney Injury (N17.9) likely due to pre-renal state, SIRS, Acute tubular necrosis Hyponatermia, hypokalemia DM, HTN, chronic alcoholism, hepatic dysfunction acute pancreatitis HAGMA with lactic acidosis + alcohol ketoacidosis and starvation ketoacidosis Thrombocytopenia Hypomagnesemia, hypophosphatemia s/p cardiac arrest, seizure ARDS Plan considering 10 L + fluid balance, ARDS pattern and oligoanuria, no response to lasix, high vent requirements renal replacement therapy initiation is indicated. d/w ICU team to obtain temp dialysis access Patient not on ACEI/ARB due to IRWIN. maintain hemodynamics stable Monitor Input/Output, daily weights and renal function with basic metabolic panel CT abdomen showed acute pancreatitis and fatty liver continue with folic acid MVI, thiamine supplements supplement electrolytes hold metformin Dose meds/antibiotics for reduced GFR. Avoid fleets enema/magnesium based laxatives. Avoid nephrotoxins/NSAIDs/ iodinated contrast (unless needed emergently) Glycemic control Further work up/management as per primary team overall prognosis poor Thanks for allowing me to participate in care of your patient. Will follow patient with you. Please call if any Qs/. d/w team Dr Finn Ng Office: [phone] Chief Complaint; unable HPI: Pt is a 47 M with hx of diabetes Mellitus hypertension and chronic daily Etoh abuse presented with SOB, pain abdomen and not feeling well renal consult for IRWIN and acidosis pt unable to provide any hx no hx noted for any spurious or toxic alcohol ingestion ROS: unable Physical Examination: General Appearance: ill appearing. on 70% FiO2 and PEEP 10, O2 sat 98%. CVP 12- 14 Vitals reviewed and noted as below Head; Atraumatic, normocephalic ENT: intubated Neck; supple no lymphadenopathy, no thyromegaly or bruit Lungs: Increased respiratory rate/effort. Breath sounds bilateral equal and with basal rales Heart: Increased rate. s1s2 normal. No rub or gallop. Extremities: no edema. No varicose veins Neurological: Patient is sedated Skin: Warm and dry. Normal turgor. No rash. Palpitation: Normal elasticity for age Abdomen: Abdomen is soft. Bowel sounds decreased. There is mild abdominal tenderness, no guarding/rigidity no organomegaly. distended. has rectal tube Psych: unable MSK: no joint tenderness or swelling. has clubbing : kidney or bladder not palpable Labs/imaging reviewed. Past medical history, past surgical history, family history, social history, allergy reviewed and noted as below Family hx: no hx of CKD. Rest non-contributory UA no crystals but has ketone and protein Objective - Vital Signs/Intake and Output Vital Signs (last 24 hours): Temp Pulse Resp BP Pulse Ox 97.0 F L 118 H 22 92/61 L 97 09/11/17 06:00 09/11/17 06:00 09/11/17 07:11 09/11/17 09:21 09/11/17 07:11 Intake and Output: 09/11/17 09/11/17 06:59 18:59 Intake Total 3170 20 Output Total 350 Balance 2820 20 - Medications Medications: Current Medications Budesonide (Pulmicort Respules) 0.5 mg IH [id number] [facility] Last Admin: 09/11/17 07:01 Dose: 0.5 mg Fentanyl (Fentanyl) 50 mcg IVP Q4H PRN PRN Reason: Agitation Folic Acid (Folic Acid) 1 mg IVP DAILY [facility] Last Admin: 09/11/17 10:40 Dose: 1 mg Levetiracetam 1,000 mg/ Sodium (Chloride) 110 mls @ 460 mls/hr IV Q12 [facility] Last Admin: 09/11/17 10:27 Dose: 460 mls/hr Insulin Human Regular (Humulin R Med) 0 units SC ACHS [facility] PRN Reason: Protocol Last Admin: 09/11/17 11:45 Dose: 5 units Levalbuterol HCl (Xopenex) 0.63 mg IH [id number] [facility] Last Admin: 09/11/17 13:19 Dose: 0.63 mg Lorazepam (Ativan) 2 mg IVP Q3H PRN; Protocol PRN Reason: Agitation Last Admin: 09/10/17 12:16 Dose: 2 mg Multivitamins/Vitamin C (Multi-Delyn Liquid) 15 ml PO 0800 [facility] Last Admin: 09/11/17 08:03 Dose: 15 ml Pantoprazole Sodium (Protonix Inj) 40 mg IVP Q12 [facility] Last Admin: 09/11/17 10:25 Dose: 40 mg Thiamine HCl (Vitamin B1 Inj) 100 mg IV DAILY [facility] Vancomycin HCl (Vancocin 25 Mg/Ml (Oral Use)) 500 mg PO Q6 [facility] PRN Reason: Protocol Last Admin: 09/11/17 14:16 Dose: 500 mg - Labs Labs: 09/11/17 05:45 09/11/17 05:45 PT 13.8 SECONDS (9.4-12.5) H 09/11/17 15:00 INR 1.21 (0.93-1.08) H 09/11/17 15:00 APTT 35.8 Seconds (25.1-36.5) 09/11/17 15:00
--- NOTE | 2017-09-11 17:36 | PN ---
DATE: 09/11/2017 SUBJECTIVE: The patient remains in intensive care unit, sedated and on the ventilator, pressors have been weaned off. PHYSICAL EXAMINATION VITAL SIGNS: Reveal that he is afebrile. Blood pressure 92/61, heart rate of 118. HEENT: Reveal an endotracheal tube in his mouth and NG tube in his nose. Sclerae is icteric. NECK: Supple. CHEST: Reveal distant breath sounds. HEART: Reveals regular rate and rhythm. ABDOMEN: Soft, nontender. EXTREMITIES: Show anasarca with trace pedal edema in his arms and legs. LABORATORY DATA: Reveal white blood cell count of 6.9, hemoglobin 9.3, platelet count of 36,000. Chemistries reveal BUN 46, creatinine 3.8, AST 527, ALT 176, alkaline phosphatase 73, total bilirubin 2.2. Amylase and lipase are down to normal. IMPRESSION: 1. Respiratory failure. 2. Sepsis. 3. Alcoholic liver disease. 4. Acute kidney failure with oliguria. 5. Resolving pancreatitis. RECOMMENDATIONS 1. We will start enteral feedings. 2. The patient is being considered for hemodialysis. His prognosis is extremely guarded. Thank you Bob Borden MD
[2017-09-11 18:31] LABS: MAGNESIUM 1.6 mg/dL (1.7-2.2)
--- NOTE | 2017-09-11 21:35 | PN ---
DATE: 09/11/2017 SUBJECTIVE: The patient is seen earlier today. He is in 128, bed 1. He remains intubated, on a ventilator in poor condition. PHYSICAL EXAMINATION: VITAL SIGNS: Temperature is 97, blood pressure is 92/60, respiratory rate on a vent, and heart rate of 118. HEENT: Reveals ET tube in place. NECK: Supple. LUNGS: Decreased breath sounds. HEART: Normal S1 and S2. ABDOMEN: Soft and nontender. LABORATORY DATA: Reveals a white count of 6.9, hemoglobin of 9, and platelets of 36. BUN of 46 and creatinine is 3.8. Alk phos is normal. LFTs are noted. The patient's procalcitonin is 1.60. Urinalysis is noted. HIV is negative. Influenza is negative. Hepatitis profile is negative. Urine Legionella antigen is negative. Blood cultures are negative. Urine cultures, no growth. Stool for C. diff is positive. Antigen negative toxin and review of orders reveals the patient is on p.o. vancomycin. ASSESSMENT AND PLAN: This is a 47-year-old male who has systemic inflammatory response syndrome, ventilatory dependent respiratory failure with severe sepsis due to Clostridium difficile and diarrhea on top of acute alcoholic pancreatitis, thrombocytopenia, alcoholic liver disease, diabetes, hypertension and currently only on p.o. vancomycin day #2 with complete 10 to 14 days of p.o. vancomycin. Overall prognosis is quite poor for this patient poor condition. Jason Oreilly MD
[2017-09-12] MEDS: Levalbuterol 0.63 MG/3 ML Inhal Soln UD IH SCH ×4 (02:15→20:05)
[2017-09-12] MEDS: Vancomycin 25 MG/ML PO SCH ×4 (05:45→23:03)
--- NOTE | 2017-09-12 06:24 | CP.PCM.PN ---
Subjective - Date & Time of Evaluation Date of Evaluation: 09/12/17 Time of Evaluation: 06:19 - Subjective Subjective: Mr. Aguero was seen and examined at the bedside in ICU. He remains on mechanical ventilator on PRVC mode with GCS 4T. He remains responsive to pain stimuli, but with less agitation. He has the OGT for feeding and medication. His bilateral upper hands positive for edema. He has the bilateral lower extremities SCD's. With his electrolytes abnormality, nephrology was consulted.There was no untoward events overnight. Objective - Vital Signs/Intake and Output Vital Signs (last 24 hours): Temp Pulse Resp BP Pulse Ox 98.2 F 113 H 22 97/64 L 98 09/12/17 02:20 09/12/17 02:20 09/11/17 07:11 09/12/17 02:00 09/12/17 02:20 Intake and Output: 09/11/17 09/12/17 18:59 06:59 Intake Total 220 Output Total 200 Balance 20 - Medications Medications: Current Medications Budesonide (Pulmicort Respules) 0.5 mg IH [id number] [facility] Last Admin: 09/11/17 20:17 Dose: 0.5 mg Fentanyl (Fentanyl) 50 mcg IVP Q4H PRN PRN Reason: Agitation Folic Acid (Folic Acid) 1 mg IVP DAILY [facility] Last Admin: 09/11/17 10:40 Dose: 1 mg Levetiracetam 1,000 mg/ Sodium (Chloride) 110 mls @ 460 mls/hr IV Q12 [facility] Last Admin: 09/11/17 21:02 Dose: 460 mls/hr Insulin Human Regular (Humulin R Med) 0 units SC Q6 [facility] PRN Reason: Protocol Last Admin: 09/11/17 23:45 Dose: Not Given Levalbuterol HCl (Xopenex) 0.63 mg IH [id number] [facility] Last Admin: 09/12/17 02:15 Dose: 0.63 mg Lorazepam (Ativan) 2 mg IVP Q3H PRN; Protocol PRN Reason: Agitation Last Admin: 09/11/17 22:53 Dose: 2 mg Multivitamins/Vitamin C (Multi-Delyn Liquid) 15 ml PO 0800 [facility] Last Admin: 09/11/17 08:03 Dose: 15 ml Pantoprazole Sodium (Protonix Inj) 40 mg IVP Q12 [facility] Last Admin: 09/11/17 21:04 Dose: 40 mg Thiamine HCl (Vitamin B1 Inj) 100 mg IV DAILY [facility] Vancomycin HCl (Vancocin 25 Mg/Ml (Oral Use)) 500 mg PO Q6 [facility] PRN Reason: Protocol Last Admin: 09/12/17 05:45 Dose: 500 mg - Labs Labs: 09/11/17 05:45 09/11/17 05:45 PT 13.8 SECONDS (9.4-12.5) H 09/11/17 15:00 INR 1.21 (0.93-1.08) H 09/11/17 15:00 APTT 35.8 Seconds (25.1-36.5) 09/11/17 15:00 - Constitutional Appears: No Acute Distress - Head Exam Head Exam: NORMAL INSPECTION - Neurological Exam Neuro motor strength exam: Left Upper Extremity: 2/1, Right Upper Extremity: 2/1 , Left Lower Extremity: 2/1, Right Lower Extremity: 2/1 Additional comments: GCS- 4T Assessment and Plan (1) Seizure Assessment & Plan: Case discussed with Dr. Reynolds, continue all current medical regimen. Treat any electrolyte imbalance. Pending EEG. Status: Acute
[2017-09-12] MEDS: Insulin Reg-MEDIUM-Coverage SC SCH ×3 (06:49→18:06)
[2017-09-12 07:12] LABS: BASO # 0.08 K/mm3 (0.0-2.0); EOS # 0.1 (0.0-0.7); EOS % 0.6 % (1.5-5.0); GRAN # 3.99 (1.4-6.5); GRAN % 50.6 % (50.0-68.0); HEMOGLOBIN 8.7 g/dL (14.0-18.0); LYMPH # 0.8 (1.2-3.4); LYMPH % 10.7 % (22.0-35.0); MEAN CELL VOLUME 97.9 fl (80.0-105.0); MEAN CORPUSCULAR HEMOGLOBIN 30.6 pg (25.0-35.0); MEAN CORPUSCULAR HGB CONC 31.3 g/dl (31.0-37.0); MONO # 2.9 (0.1-0.6); MONO % 37.1 % (1.0-6.0); RBC 2.84 10^6/uL (3.5-6.1); RED CELL DISTRIBUTION WIDTH 15.2 % (11.5-14.5); WHITE BLOOD COUNT 7.9 10^3/ul (4.5-11.0)
--- NOTE | 2017-09-12 07:23 | CP.CCUPN ---
<Mayra Pierce - Last Filed: 09/12/17 09:31> CCU Subjective - Physician Review Subjective (Free Text): 09/12/17 09:31 PGY2 ICU Progress note for Dr. Bustamante Patient seen and examined at bedside. As per nursing patient had one episode of agitation overnight while being suctioned and required ativan. Patient's sedation has been off for 24 hours. Intubated on vent (420, 22, 60%, 10). Opens eyes to pain. Patient was given 1 dose of lasix 40mg overnight and made 300cc UO. No output in rectal tube this AM. Feeds @ 20cc/hr with residual of 100cc this AM. ROS unobtainable. Critical Care Time Spent (in minutes): 45 CCU Objective - Vital Signs / Intake & Output Vital Signs (Last 4 hours): Vital Signs Pulse 09/12/17 03:54 114 H Intake and Output (Last 8hrs): Intake & Output 09/11/17 09/12/17 09/12/17 22:59 06:59 14:59 Intake Total 200 Output Total 200 Balance 0 Intake: IV 200 meds 200 Output: Urine 200 Urethral (Chance) 200 - Physical Exam Head: Positive for: Atraumatic, Normocephalic Pupils: Positive for: Sluggish Extroacular Muscles: Positive for: Other (exopthalmic) Conjunctiva: Positive for: Normal Mouth: Positive for: Moist Mucous Membranes, Other (ET tube in place) Neck: Positive for: Other (R IJ TLC in place). Negative for: Lymphadenopathy Respiratory/Chest: Positive for: Rales (at bases), Other (intubated on vent (60 , 10, 22, 420)). Negative for: Accessory Muscle Use, Wheezes, Retracting, Rhonchi, Tachypneic Cardiovascular: Positive for: Normal S1, S2, Tachycardic. Negative for: Regular Rate and Rhythm, Murmurs Abdomen: Positive for: Distention, Normal Bowel Sounds. Negative for: Tenderness, Peritoneal Signs Genitourinary Male: Positive for: Penile Swelling Back: Positive for: Normal Inspection Upper Extremity: Positive for: Normal Inspection. Negative for: Cyanosis, Edema Lower Extremity: Positive for: Normal Inspection. Negative for: Edema, CALF TENDERNESS Neurological: Positive for: Other (intubated- reacts to pain; no sedation). Negative for: GCS=15 Skin: Positive for: Warm, Dry, Other (bullae on left dorsal surface of hand). Negative for: Rashes Psychiatric: Negative for: Alert, Oriented x 3, Normal Insight, Normal Concentration - Medications Active Medications: Active Medications Generic Name Dose Route Start Last Admin Trade Name Freq PRN Reason Stop Dose Admin Budesonide 0.5 mg 09/09/17 08:00 09/11/17 20:17 Pulmicort Respules IH 0.5 mg [id number] DENIA Administration Fentanyl 50 mcg 09/11/17 09:21 Fentanyl IVP Q4H PRN Agitation Folic Acid 1 mg 09/10/17 10:00 09/11/17 10:40 Folic Acid IVP 1 mg DAILY DENIA Administration Levetiracetam 1,000 mg/ Sodium 110 mls @ 460 mls/hr 09/10/17 10:00 09/11/17 21:02 Chloride IV 460 mls/hr Q12 DENIA Administration Insulin Human Regular 0 units 09/12/17 00:00 09/12/17 06:49 Humulin R Med SC 3 units Q6 DENIA Administration Protocol Levalbuterol HCl 0.63 mg 09/10/17 20:00 09/12/17 02:15 Xopenex IH 0.63 mg [id number] DENIA Administration Lorazepam 2 mg 09/10/17 09:16 09/11/17 22:53 Ativan IVP 2 mg Q3H PRN Administration Agitation Protocol Multivitamins/Vitamin C 15 ml 09/11/17 08:00 09/11/17 08:03 Multi-Delyn Liquid PO 15 ml 0800 DENIA Administration Pantoprazole Sodium 40 mg 09/10/17 10:00 09/11/17 21:04 Protonix Inj IVP 40 mg Q12 DENIA Administration Thiamine HCl 100 mg 09/12/17 10:00 Vitamin B1 Inj IV DAILY DENIA Vancomycin HCl 500 mg 09/09/17 18:00 09/12/17 05:45 Vancocin 25 Mg/Ml (Oral Use) PO 500 mg Q6 DENIA Administration Protocol - Patient Studies Lab Studies: Microbiology Studies 09/08/17 12:30 Blood Culture - Preliminary Blood-Venous NO GROWTH AFTER 3 DAYS 09/09/17 00:00 Gram Stain - Final Trachasp Sputum Culture - Final NORMAL ORAL ETHAN Lab Studies 09/12/17 09/11/17 09/11/17 Range/Units 06:09 23:21 17:53 WBC (4.5-11.0) 10^3/ul RBC (3.5-6.1) 10^6/uL Hgb (14.0-18.0) g/dL Hct (42.0-52.0) % MCV (80.0-105.0) fl MCH (25.0-35.0) pg MCHC (31.0-37.0) g/dl RDW (11.5-14.5) % Plt Count (120.0-450.0) 10^3/uL MPV (7.0-11.0) fl Gran % (50.0-68.0) % Lymph % (Auto) (22.0-35.0) % Caldwell % (Auto) (1.0-6.0) % Eos % (Auto) (1.5-5.0) % Baso % (Auto) (0.0-3.0) % Gran # (1.4-6.5) Lymph # (1.2-3.4) Caldwell # (0.1-0.6) Eos # (0.0-0.7) Baso # (0.0-2.0) K/mm3 Neutrophils % (Manual) (50.0-70.0) % Band Neutrophils % (0-2) % Lymphocytes % (Manual) (22.0-35.0) % Atypical Lymphs % (0.0-0.0) % Monocytes % (Manual) (1.0-6.0) % Platelet Evaluation (NORMAL) Hypochromasia Anisocytosis (manual) Macrocytosis (manual) PT (9.4-12.5) SECONDS INR (0.93-1.08) APTT (25.1-36.5) Seconds pCO2 (35-45) mm/Hg pO2 (80-100) mm/Hg HCO3 (21-28) mmol/L ABG pH (7.35-7.45) ABG Total CO2 (22-28) mmol.L ABG O2 Saturation (95-98) % ABG O2 Content (15-23) ML/dl ABG Base Excess (-2.0-3.0) mmol/L ABG Hemoglobin (11.7-17.4) g/dL ABG Carboxyhemoglobin (0.5-1.5) % POC ABG HHb (Measured) (0-5) % ABG Methemoglobin (0.0-3.0) % ABG O2 Capacity (16-24) mL/dl Hgb O2 Saturation (95.0-98.0) % FiO2 % Creatinine (0.8-1.5) mg/dl Est GFR ( Amer) Est GFR (Non-Af Amer) POC Glucose (mg/dL) 226 H 171 H 197 H (65-110) mg/dL Magnesium (1.7-2.2) mg/dL Ur Strep pneumoniae Ag 09/11/17 09/11/17 09/11/17 Range/Units 15:00 12:03 11:20 WBC (4.5-11.0) 10^3/ul RBC (3.5-6.1) 10^6/uL Hgb (14.0-18.0) g/dL Hct (42.0-52.0) % MCV (80.0-105.0) fl MCH (25.0-35.0) pg MCHC (31.0-37.0) g/dl RDW (11.5-14.5) % Plt Count (120.0-450.0) 10^3/uL MPV (7.0-11.0) fl Gran % (50.0-68.0) % Lymph % (Auto) (22.0-35.0) % Caldwell % (Auto) (1.0-6.0) % Eos % (Auto) (1.5-5.0) % Baso % (Auto) (0.0-3.0) % Gran # (1.4-6.5) Lymph # (1.2-3.4) Caldwell # (0.1-0.6) Eos # (0.0-0.7) Baso # (0.0-2.0) K/mm3 Neutrophils % (Manual) (50.0-70.0) % Band Neutrophils % (0-2) % Lymphocytes % (Manual) (22.0-35.0) % Atypical Lymphs % (0.0-0.0) % Monocytes % (Manual) (1.0-6.0) % Platelet Evaluation (NORMAL) Hypochromasia Anisocytosis (manual) Macrocytosis (manual) PT 13.8 H (9.4-12.5) SECONDS INR 1.21 H (0.93-1.08) APTT 35.8 (25.1-36.5) Seconds pCO2 49 H (35-45) mm/Hg pO2 64.0 L (80-100) mm/Hg HCO3 22.0 (21-28) mmol/L ABG pH 7.26 L (7.35-7.45) ABG Total CO2 23.5 (22-28) mmol.L ABG O2 Saturation 96.6 (95-98) % ABG O2 Content 12.3 L (15-23) ML/dl ABG Base Excess -5.0 L (-2.0-3.0) mmol/L ABG Hemoglobin 9.3 L (11.7-17.4) g/dL ABG Carboxyhemoglobin 1.7 H (0.5-1.5) % POC ABG HHb (Measured) 3.3 (0-5) % ABG Methemoglobin 1.5 (0.0-3.0) % ABG O2 Capacity 12.7 L (16-24) mL/dl Hgb O2 Saturation 93.5 L (95.0-98.0) % FiO2 60.0 % Creatinine (0.8-1.5) mg/dl Est GFR ( Amer) Est GFR (Non-Af Amer) POC Glucose (mg/dL) 255 H (65-110) mg/dL Magnesium (1.7-2.2) mg/dL Ur Strep pneumoniae Ag 09/11/17 09/11/17 09/11/17 Range/Units 07:37 05:45 05:45 WBC 6.9 (4.5-11.0) 10^3/ul RBC 2.79 L (3.5-6.1) 10^6/uL Hgb 9.3 L (14.0-18.0) g/dL Hct 28.0 L (42.0-52.0) % MCV 100.4 D (80.0-105.0) fl MCH 33.3 (25.0-35.0) pg MCHC 33.2 (31.0-37.0) g/dl RDW 15.2 H (11.5-14.5) % Plt Count 36 L* (120.0-450.0) 10^3/uL MPV 12.1 H (7.0-11.0) fl Gran % 66.1 (50.0-68.0) % Lymph % (Auto) 9.2 L (22.0-35.0) % Caldwell % (Auto) 23.8 H (1.0-6.0) % Eos % (Auto) 0.6 L (1.5-5.0) % Baso % (Auto) 0.3 (0.0-3.0) % Gran # 4.54 (1.4-6.5) Lymph # 0.6 L (1.2-3.4) Caldwell # 1.6 H (0.1-0.6) Eos # 0.0 (0.0-0.7) Baso # 0.02 (0.0-2.0) K/mm3 Neutrophils % (Manual) 63 (50.0-70.0) % Band Neutrophils % 6 H (0-2) % Lymphocytes % (Manual) 18 L (22.0-35.0) % Atypical Lymphs % 3 H (0.0-0.0) % Monocytes % (Manual) 10 H (1.0-6.0) % Platelet Evaluation Low (NORMAL) Hypochromasia 1+ Anisocytosis (manual) 1+ Macrocytosis (manual) Slight PT (9.4-12.5) SECONDS INR (0.93-1.08) APTT (25.1-36.5) Seconds pCO2 (35-45) mm/Hg pO2 (80-100) mm/Hg HCO3 (21-28) mmol/L ABG pH (7.35-7.45) ABG Total CO2 (22-28) mmol.L ABG O2 Saturation (95-98) % ABG O2 Content (15-23) ML/dl ABG Base Excess (-2.0-3.0) mmol/L ABG Hemoglobin (11.7-17.4) g/dL ABG Carboxyhemoglobin (0.5-1.5) % POC ABG HHb (Measured) (0-5) % ABG Methemoglobin (0.0-3.0) % ABG O2 Capacity (16-24) mL/dl Hgb O2 Saturation (95.0-98.0) % FiO2 % Creatinine 3.8 H (0.8-1.5) mg/dl Est GFR ( Amer) 21 Est GFR (Non-Af Amer) 17 POC Glucose (mg/dL) 210 H (65-110) mg/dL Magnesium 1.6 L (1.7-2.2) mg/dL Ur Strep pneumoniae Ag 09/08/17 Range/Units 20:00 WBC (4.5-11.0) 10^3/ul RBC (3.5-6.1) 10^6/uL Hgb (14.0-18.0) g/dL Hct (42.0-52.0) % MCV (80.0-105.0) fl MCH (25.0-35.0) pg MCHC (31.0-37.0) g/dl RDW (11.5-14.5) % Plt Count (120.0-450.0) 10^3/uL MPV (7.0-11.0) fl Gran % (50.0-68.0) % Lymph % (Auto) (22.0-35.0) % Caldwell % (Auto) (1.0-6.0) % Eos % (Auto) (1.5-5.0) % Baso % (Auto) (0.0-3.0) % Gran # (1.4-6.5) Lymph # (1.2-3.4) Caldwell # (0.1-0.6) Eos # (0.0-0.7) Baso # (0.0-2.0) K/mm3 Neutrophils % (Manual) (50.0-70.0) % Band Neutrophils % (0-2) % Lymphocytes % (Manual) (22.0-35.0) % Atypical Lymphs % (0.0-0.0) % Monocytes % (Manual) (1.0-6.0) % Platelet Evaluation (NORMAL) Hypochromasia Anisocytosis (manual) Macrocytosis (manual) PT (9.4-12.5) SECONDS INR (0.93-1.08) APTT (25.1-36.5) Seconds pCO2 (35-45) mm/Hg pO2 (80-100) mm/Hg HCO3 (21-28) mmol/L ABG pH (7.35-7.45) ABG Total CO2 (22-28) mmol.L ABG O2 Saturation (95-98) % ABG O2 Content (15-23) ML/dl ABG Base Excess (-2.0-3.0) mmol/L ABG Hemoglobin (11.7-17.4) g/dL ABG Carboxyhemoglobin (0.5-1.5) % POC ABG HHb (Measured) (0-5) % ABG Methemoglobin (0.0-3.0) % ABG O2 Capacity (16-24) mL/dl Hgb O2 Saturation (95.0-98.0) % FiO2 % Creatinine (0.8-1.5) mg/dl Est GFR ( Amer) Est GFR (Non-Af Amer) POC Glucose (mg/dL) (65-110) mg/dL Magnesium (1.7-2.2) mg/dL Ur Strep pneumoniae Ag Not detected Laboratory Results - last 24 hr 09/08/17 09/11/17 09/11/17 20:00 05:45 05:45 WBC 6.9 RBC 2.79 L Hgb 9.3 L Hct 28.0 L MCV 100.4 D MCH 33.3 MCHC 33.2 RDW 15.2 H Plt Count 36 L* MPV 12.1 H Gran % 66.1 Lymph % (Auto) 9.2 L Caldwell % (Auto) 23.8 H Eos % (Auto) 0.6 L Baso % (Auto) 0.3 Gran # 4.54 Lymph # 0.6 L Caldwell # 1.6 H Eos # 0.0 Baso # 0.02 Neutrophils % (Manual) 63 Band Neutrophils % 6 H Lymphocytes % (Manual) 18 L Atypical Lymphs % 3 H Monocytes % (Manual) 10 H Platelet Evaluation Low Hypochromasia 1+ Anisocytosis (manual) 1+ Macrocytosis (manual) Slight PT INR APTT pCO2 pO2 HCO3 ABG pH ABG Total CO2 ABG O2 Saturation ABG O2 Content ABG Base Excess ABG Hemoglobin ABG Carboxyhemoglobin POC ABG HHb (Measured) ABG Methemoglobin ABG O2 Capacity Hgb O2 Saturation FiO2 Creatinine 3.8 H Est GFR ( Amer) 21 Est GFR (Non-Af Amer) 17 POC Glucose (mg/dL) Magnesium 1.6 L Ur Strep pneumoniae Ag Not detected 09/11/17 09/11/17 09/11/17 07:37 11:20 12:03 WBC RBC Hgb Hct MCV MCH MCHC RDW Plt Count MPV Gran % Lymph % (Auto) Caldwell % (Auto) Eos % (Auto) Baso % (Auto) Gran # Lymph # Caldwell # Eos # Baso # Neutrophils % (Manual) Band Neutrophils % Lymphocytes % (Manual) Atypical Lymphs % Monocytes % (Manual) Platelet Evaluation Hypochromasia Anisocytosis (manual) Macrocytosis (manual) PT INR APTT pCO2 49 H pO2 64.0 L HCO3 22.0 ABG pH 7.26 L ABG Total CO2 23.5 ABG O2 Saturation 96.6 ABG O2 Content 12.3 L ABG Base Excess -5.0 L ABG Hemoglobin 9.3 L ABG Carboxyhemoglobin 1.7 H POC ABG HHb (Measured) 3.3 ABG Methemoglobin 1.5 ABG O2 Capacity 12.7 L Hgb O2 Saturation 93.5 L FiO2 60.0 Creatinine Est GFR ( Amer) Est GFR (Non-Af Amer) POC Glucose (mg/dL) 210 H 255 H Magnesium Ur Strep pneumoniae Ag 09/11/17 09/11/17 09/11/17 15:00 17:53 23:21 WBC RBC Hgb Hct MCV MCH MCHC RDW Plt Count MPV Gran % Lymph % (Auto) Caldwell % (Auto) Eos % (Auto) Baso % (Auto) Gran # Lymph # Caldwell # Eos # Baso # Neutrophils % (Manual) Band Neutrophils % Lymphocytes % (Manual) Atypical Lymphs % Monocytes % (Manual) Platelet Evaluation Hypochromasia Anisocytosis (manual) Macrocytosis (manual) PT 13.8 H INR 1.21 H APTT 35.8 pCO2 pO2 HCO3 ABG pH ABG Total CO2 ABG O2 Saturation ABG O2 Content ABG Base Excess ABG Hemoglobin ABG Carboxyhemoglobin POC ABG HHb (Measured) ABG Methemoglobin ABG O2 Capacity Hgb O2 Saturation FiO2 Creatinine Est GFR ( Amer) Est GFR (Non-Af Amer) POC Glucose (mg/dL) 197 H 171 H Magnesium Ur Strep pneumoniae Ag 09/12/17 06:09 WBC RBC Hgb Hct MCV MCH MCHC RDW Plt Count MPV Gran % Lymph % (Auto) Caldwell % (Auto) Eos % (Auto) Baso % (Auto) Gran # Lymph # Caldwell # Eos # Baso # Neutrophils % (Manual) Band Neutrophils % Lymphocytes % (Manual) Atypical Lymphs % Monocytes % (Manual) Platelet Evaluation Hypochromasia Anisocytosis (manual) Macrocytosis (manual) PT INR APTT pCO2 pO2 HCO3 ABG pH ABG Total CO2 ABG O2 Saturation ABG O2 Content ABG Base Excess ABG Hemoglobin ABG Carboxyhemoglobin POC ABG HHb (Measured) ABG Methemoglobin ABG O2 Capacity Hgb O2 Saturation FiO2 Creatinine Est GFR ( Amer) Est GFR (Non-Af Amer) POC Glucose (mg/dL) 226 H Magnesium Ur Strep pneumoniae Ag Fingerstick Blood Sugar Results: 226 Review of Systems - Review of Systems Systems not reviewed;Unavailable: Intubated Assessment/Plan - Assessment and Plan (Free Text) Assessment: 47yo male PMHx of DM2, HTN and alcohol abuse found to be in septic shock likely secondary to pancreatitis, aspiration pneumonia, IRWIN, transaminitis, seizures, metabolic acidosis, thrombocytopenia likely secondary to alcohol abuse, cardiac arrest s/p ROSC and respiratory failure. Plan: Neuro: Pt intubated and sedated on fentanyl @ 5cc and diprivan @ 7.6cc - will be d/ c this AM Ativan and Fentanyl prn agitation Head CT: negative Depakote d/c and changed to Keppra IV BID f/u EEG f/u repeat head CT Seizure precautions Maintain normothemia Neuro consulted- recs appreciated CV: cardiac arrest s/p ROSC Pt tachycardic Maintain MAP >65 Echo: unremarkable Monitor I&O Cardio consulted- recs appreciated Pulm: Intubated on PRVC- will titrate to maintain SpO2>92% Pt has crackles on exam and is in metabolic acidosis CXR showed pneumonia of RUL and L perihilar HOB elevated- asp precaution Duoneb, Pulmicort Pulm consulted GI: Pancreatitis and transaminitis secondary to alcohol abuse Abd U/S: fatty infiltration of liver, no evidence of cholelithiasis/ cholecystitis; no sonographic evidence of acute pancreatitis Will give patient folic acid, multivitamin, thiamine Avoid nephrotoxic medications Lipase and Amylase WNL Feeds @ 20cc/hr Hep panel negative GI consulted Surg consulted- no surgical intervention at this time Heme: Thrombocytopenia secondary to EtOH abuse To receive 2U platelets this AM 20mcg DDAVP IV x 1 Hold Heparin for now Hgb stable- no overt signs of bleeding Nephro: IRWIN - prerenal with anion gap metabolic acidosis secondary to alcohol ketoacidosis as well as lactic acidosis Cr increased to 5.3, Bicarb 55 Patient to have shiley placed today and have HD today Continue to monitor electrolytes and replace as needed Maintain euvolemia Avoid nephrotoxic agents Monitor Is and Os and Daily Weight Nephro consulted- recs appreciated ID: Septic shock secondary to pancreatitis vs aspiration pneumonia vs C. diff ID consulted- recs appreciated afebrile overnight PO Vancomycin for 10-14 days for C. Diff Zosyn d/c Blood, urine, sputum cultures negative HIV, Strep, and legionella negative Blood and Urine culture negative Endo: Hx of DM Pt on ISS Maintain euglycemia 140-180s GI ppx: Protonix DVT ppx: SCDs- no heparin due to thrombocytopenia Diet: Tube feeds @ 20cc/hr Dispo: Prognosis guarded. Palliative care consulted. Discussed with Dr. Dianna pierce PGY2 <Santosh Bustamante - Last Filed: 09/12/17 14:04> CCU Objective - Vital Signs / Intake & Output Vital Signs (Last 4 hours): Vital Signs Temp Pulse Resp BP Pulse Ox 09/12/17 13:15 104/67 09/12/17 13:14 106 H 97 09/12/17 13:10 98.2 F 106 H 22 105/72 98 09/12/17 13:09 105 H 105/72 98 09/12/17 13:00 107/68 09/12/17 12:59 108 H 97 09/12/17 12:52 98.2 F 111 H 22 109/73 09/12/17 12:51 107 H 98 09/12/17 12:50 98.2 F 108 H 22 108/75 98 09/12/17 12:48 119 H 09/12/17 12:45 108/75 09/12/17 12:44 110 H 97 09/12/17 12:40 110 H 98 09/12/17 12:30 111/73 09/12/17 12:29 112 H 97 09/12/17 12:28 98 F 111 H 22 111/73 09/12/17 12:20 113 H 98 09/12/17 12:15 114 H 116/84 98 09/12/17 12:10 116 H 97 09/12/17 12:00 119 H 141/92 H 98 09/12/17 11:50 122 H 99 09/12/17 11:49 125 H 191/106 H 97 09/12/17 11:45 125 H 170/116 H 97 09/12/17 11:43 98.4 F 126 H 28 H 168/113 H 97 09/12/17 11:40 128 H 97 09/12/17 11:33 127 H 190/119 H 96 09/12/17 11:30 124 H 97 09/12/17 11:23 112 H 121/79 98 09/12/17 11:20 98.2 F 110 H 22 121/79 98 09/12/17 11:10 109 H 98 09/12/17 11:00 109 H 110/77 98 09/12/17 10:50 111 H 98 09/12/17 10:40 111 H 98 09/12/17 10:30 113 H 99 09/12/17 10:20 112 H 99 09/12/17 10:10 114 H 98 09/12/17 10:00 117 H 113/75 97 Intake and Output (Last 8hrs): Intake & Output 09/11/17 09/12/17 09/12/17 22:59 06:59 14:59 Intake Total 200 300 201 Output Total 200 350 Balance 0 -50 201 Intake: IV 200 100 meds 200 100 Tube Feeding 200 Blood Product 201 Apheresis Plts Acda Lr 201 Irr 3rd Unit [id number] Apheresis Plts Acda Lr 0 Irr 3rd Unit [id number] Output: Urine 200 350 Urethral (Chance) 200 350 - Medications Active Medications: Active Medications Generic Name Dose Route Start Last Admin Trade Name Freq PRN Reason Stop Dose Admin Artificial Tears 0.3 ml 09/12/17 10:00 09/12/17 10:19 Refresh Opth Soln OU 0.3 ml Q12 DENIA Administration Budesonide 0.5 mg 09/09/17 08:00 09/12/17 07:31 Pulmicort Respules IH 0.5 mg [id number] DENIA Administration Fentanyl 50 mcg 09/11/17 09:21 Fentanyl IVP Q4H PRN Agitation Folic Acid 1 mg 09/10/17 10:00 09/12/17 11:12 Folic Acid IVP 1 mg DAILY DENIA Administration Levetiracetam 1,000 mg/ Sodium 110 mls @ 460 mls/hr 09/10/17 10:00 09/12/17 10:18 Chloride IV 460 mls/hr Q12 DENIA Administration Propofol 1,000 mg in 100 mls @ 2.062 mls/hr 09/12/17 11:52 09/12/17 12:02 Diprivan IV 5 mcg/kg/min .Q24H PRN 2.062 mls/hr TITRATE PER MD ORDER Administration Protocol 5 MCG/KG/MIN Insulin Human Regular 0 units 09/12/17 00:00 09/12/17 06:49 Humulin R Med SC 3 units Q6 DENIA Administration Protocol Levalbuterol HCl 0.63 mg 09/10/17 20:00 09/12/17 07:31 Xopenex IH 0.63 mg [id number] DENIA Administration Lorazepam 2 mg 09/10/17 09:16 09/12/17 09:18 Ativan IVP 2 mg Q3H PRN Administration Agitation Protocol Multivitamins/Vitamin C 15 ml 09/11/17 08:00 09/12/17 08:10 Multi-Delyn Liquid PO 15 ml 0800 DENIA Administration Pantoprazole Sodium 40 mg 09/10/17 10:00 09/12/17 10:10 Protonix Inj IVP 40 mg Q12 DENIA Administration Thiamine HCl 100 mg 09/12/17 10:00 09/12/17 10:09 Vitamin B1 Inj IV 100 mg DAILY DENIA Administration Vancomycin HCl 500 mg 09/09/17 18:00 09/12/17 11:17 Vancocin 25 Mg/Ml (Oral Use) PO 500 mg Q6 DENIA Administration Protocol - Patient Studies Lab Studies: Microbiology Studies 09/08/17 12:30 Blood Culture - Preliminary Blood-Venous NO GROWTH AFTER 4 DAYS 09/09/17 00:00 Gram Stain - Final Trachasp Sputum Culture - Final NORMAL ORAL ETHAN Lab Studies 09/12/17 09/12/17 09/12/17 Range/Units 10:30 09:00 08:05 WBC (4.5-11.0) 10^3/ul RBC (3.5-6.1) 10^6/uL Hgb (14.0-18.0) g/dL Hct (42.0-52.0) % MCV (80.0-105.0) fl MCH (25.0-35.0) pg MCHC (31.0-37.0) g/dl RDW (11.5-14.5) % Plt Count (120.0-450.0) 10^3/uL Gran % (50.0-68.0) % Lymph % (Auto) (22.0-35.0) % Caldwell % (Auto) (1.0-6.0) % Eos % (Auto) (1.5-5.0) % Baso % (Auto) (0.0-3.0) % Gran # (1.4-6.5) Lymph # (Auto) (1.2-3.4) Caldwell # (Auto) (0.1-0.6) Eos # (Auto) (0.0-0.7) Baso # (Auto) (0.0-2.0) K/mm3 PT (9.4-12.5) SECONDS INR (0.93-1.08) APTT (25.1-36.5) Seconds pCO2 47 H (35-45) mm/Hg pO2 96.0 (80-100) mm/Hg HCO3 21.6 (21-28) mmol/L ABG pH 7.27 L (7.35-7.45) ABG Total CO2 23.0 (22-28) mmol.L ABG O2 Saturation 99.0 H (95-98) % ABG O2 Content 12.4 L (15-23) ML/dl ABG Base Excess -5.1 L (-2.0-3.0) mmol/L ABG Hemoglobin 9.0 L (11.7-17.4) g/dL ABG Carboxyhemoglobin 1.8 H (0.5-1.5) % POC ABG HHb (Measured) 1.0 (0-5) % ABG Methemoglobin 0.8 (0.0-3.0) % ABG O2 Capacity 12.5 L (16-24) mL/dl Hgb O2 Saturation 96.4 (95.0-98.0) % FiO2 60.0 % Sodium (132-148) mmol/L Potassium (3.6-5.0) mmol/L Chloride (98-107) mmol/L Carbon Dioxide (21-33) mmol/L Anion Gap (10-20) BUN (7-21) mg/dL Creatinine (0.8-1.5) mg/dl Est GFR ( Amer) Est GFR (Non-Af Amer) POC Glucose (mg/dL) (65-110) mg/dL Random Glucose (70-110) mg/dL Calcium (8.4-10.5) mg/dL Phosphorus 4.5 (2.5-4.5) mg/dL Magnesium 1.6 L (1.7-2.2) mg/dL Total Bilirubin (0.2-1.3) mg/dL AST (17-59) U/L ALT (7-56) U/L Alkaline Phosphatase (38-126) U/L Total Protein (5.8-8.3) g/dL Albumin (3.0-4.8) g/dL Globulin gm/dL Albumin/Globulin Ratio (1.1-1.8) Amylase (35-125) U/L Lipase (23-300) U/L Ur Strep pneumoniae Ag Blood Type O POSITIVE Antibody Screen Negative BBK History Checked Patient has bt 09/12/17 09/12/17 09/12/17 Range/Units 06:09 06:00 06:00 WBC (4.5-11.0) 10^3/ul RBC (3.5-6.1) 10^6/uL Hgb (14.0-18.0) g/dL Hct (42.0-52.0) % MCV (80.0-105.0) fl MCH (25.0-35.0) pg MCHC (31.0-37.0) g/dl RDW (11.5-14.5) % Plt Count (120.0-450.0) 10^3/uL Gran % (50.0-68.0) % Lymph % (Auto) (22.0-35.0) % Caldwell % (Auto) (1.0-6.0) % Eos % (Auto) (1.5-5.0) % Baso % (Auto) (0.0-3.0) % Gran # (1.4-6.5) Lymph # (Auto) (1.2-3.4) Caldwell # (Auto) (0.1-0.6) Eos # (Auto) (0.0-0.7) Baso # (Auto) (0.0-2.0) K/mm3 PT 13.4 H (9.4-12.5) SECONDS INR 1.16 H (0.93-1.08) APTT 34.1 (25.1-36.5) Seconds pCO2 (35-45) mm/Hg pO2 (80-100) mm/Hg HCO3 (21-28) mmol/L ABG pH (7.35-7.45) ABG Total CO2 (22-28) mmol.L ABG O2 Saturation (95-98) % ABG O2 Content (15-23) ML/dl ABG Base Excess (-2.0-3.0) mmol/L ABG Hemoglobin (11.7-17.4) g/dL ABG Carboxyhemoglobin (0.5-1.5) % POC ABG HHb (Measured) (0-5) % ABG Methemoglobin (0.0-3.0) % ABG O2 Capacity (16-24) mL/dl Hgb O2 Saturation (95.0-98.0) % FiO2 % Sodium 143 (132-148) mmol/L Potassium 3.7 (3.6-5.0) mmol/L Chloride 107 (98-107) mmol/L Carbon Dioxide 21 (21-33) mmol/L Anion Gap 18 (10-20) BUN 55 H (7-21) mg/dL Creatinine 5.3 H (0.8-1.5) mg/dl Est GFR ( Amer) 14 Est GFR (Non-Af Amer) 12 POC Glucose (mg/dL) 226 H (65-110) mg/dL Random Glucose 198 H (70-110) mg/dL Calcium 8.1 L (8.4-10.5) mg/dL Phosphorus (2.5-4.5) mg/dL Magnesium (1.7-2.2) mg/dL Total Bilirubin 2.5 H (0.2-1.3) mg/dL AST 250 H D (17-59) U/L ALT 133 H (7-56) U/L Alkaline Phosphatase 83 (38-126) U/L Total Protein 5.5 L (5.8-8.3) g/dL Albumin 2.7 L (3.0-4.8) g/dL Globulin 2.8 gm/dL Albumin/Globulin Ratio 1.0 L (1.1-1.8) Amylase (35-125) U/L Lipase (23-300) U/L Ur Strep pneumoniae Ag Blood Type Antibody Screen BBK History Checked 09/12/17 09/12/17 09/11/17 Range/Units 06:00 06:00 23:21 WBC 7.9 (4.5-11.0) 10^3/ul RBC 2.84 L (3.5-6.1) 10^6/uL Hgb 8.7 L (14.0-18.0) g/dL Hct 27.8 L (42.0-52.0) % MCV 97.9 (80.0-105.0) fl MCH 30.6 (25.0-35.0) pg MCHC 31.3 (31.0-37.0) g/dl RDW 15.2 H (11.5-14.5) % Plt Count 24 L* (120.0-450.0) 10^3/uL Gran % 50.6 (50.0-68.0) % Lymph % (Auto) 10.7 L (22.0-35.0) % Caldwell % (Auto) 37.1 H (1.0-6.0) % Eos % (Auto) 0.6 L (1.5-5.0) % Baso % (Auto) 1.0 (0.0-3.0) % Gran # 3.99 (1.4-6.5) Lymph # (Auto) 0.8 L (1.2-3.4) Caldwell # (Auto) 2.9 H (0.1-0.6) Eos # (Auto) 0.1 (0.0-0.7) Baso # (Auto) 0.08 (0.0-2.0) K/mm3 PT (9.4-12.5) SECONDS INR (0.93-1.08) APTT (25.1-36.5) Seconds pCO2 (35-45) mm/Hg pO2 (80-100) mm/Hg HCO3 (21-28) mmol/L ABG pH (7.35-7.45) ABG Total CO2 (22-28) mmol.L ABG O2 Saturation (95-98) % ABG O2 Content (15-23) ML/dl ABG Base Excess (-2.0-3.0) mmol/L ABG Hemoglobin (11.7-17.4) g/dL ABG Carboxyhemoglobin (0.5-1.5) % POC ABG HHb (Measured) (0-5) % ABG Methemoglobin (0.0-3.0) % ABG O2 Capacity (16-24) mL/dl Hgb O2 Saturation (95.0-98.0) % FiO2 % Sodium (132-148) mmol/L Potassium (3.6-5.0) mmol/L Chloride (98-107) mmol/L Carbon Dioxide (21-33) mmol/L Anion Gap (10-20) BUN (7-21) mg/dL Creatinine (0.8-1.5) mg/dl Est GFR ( Amer) Est GFR (Non-Af Amer) POC Glucose (mg/dL) 171 H (65-110) mg/dL Random Glucose (70-110) mg/dL Calcium (8.4-10.5) mg/dL Phosphorus (2.5-4.5) mg/dL Magnesium (1.7-2.2) mg/dL Total Bilirubin (0.2-1.3) mg/dL AST (17-59) U/L ALT (7-56) U/L Alkaline Phosphatase (38-126) U/L Total Protein (5.8-8.3) g/dL Albumin (3.0-4.8) g/dL Globulin gm/dL Albumin/Globulin Ratio (1.1-1.8) Amylase 33 L (35-125) U/L Lipase 137 (23-300) U/L Ur Strep pneumoniae Ag Blood Type Antibody Screen BBK History Checked 09/11/17 09/11/17 09/11/17 Range/Units 17:53 15:00 05:45 WBC (4.5-11.0) 10^3/ul RBC (3.5-6.1) 10^6/uL Hgb (14.0-18.0) g/dL Hct (42.0-52.0) % MCV (80.0-105.0) fl MCH (25.0-35.0) pg MCHC (31.0-37.0) g/dl RDW (11.5-14.5) % Plt Count (120.0-450.0) 10^3/uL Gran % (50.0-68.0) % Lymph % (Auto) (22.0-35.0) % Caldwell % (Auto) (1.0-6.0) % Eos % (Auto) (1.5-5.0) % Baso % (Auto) (0.0-3.0) % Gran # (1.4-6.5) Lymph # (Auto) (1.2-3.4) Caldwell # (Auto) (0.1-0.6) Eos # (Auto) (0.0-0.7) Baso # (Auto) (0.0-2.0) K/mm3 PT 13.8 H (9.4-12.5) SECONDS INR 1.21 H (0.93-1.08) APTT 35.8 (25.1-36.5) Seconds pCO2 (35-45) mm/Hg pO2 (80-100) mm/Hg HCO3 (21-28) mmol/L ABG pH (7.35-7.45) ABG Total CO2 (22-28) mmol.L ABG O2 Saturation (95-98) % ABG O2 Content (15-23) ML/dl ABG Base Excess (-2.0-3.0) mmol/L ABG Hemoglobin (11.7-17.4) g/dL ABG Carboxyhemoglobin (0.5-1.5) % POC ABG HHb (Measured) (0-5) % ABG Methemoglobin (0.0-3.0) % ABG O2 Capacity (16-24) mL/dl Hgb O2 Saturation (95.0-98.0) % FiO2 % Sodium (132-148) mmol/L Potassium (3.6-5.0) mmol/L Chloride (98-107) mmol/L Carbon Dioxide (21-33) mmol/L Anion Gap (10-20) BUN (7-21) mg/dL Creatinine (0.8-1.5) mg/dl Est GFR ( Amer) Est GFR (Non-Af Amer) POC Glucose (mg/dL) 197 H (65-110) mg/dL Random Glucose (70-110) mg/dL Calcium (8.4-10.5) mg/dL Phosphorus (2.5-4.5) mg/dL Magnesium 1.6 L (1.7-2.2) mg/dL Total Bilirubin (0.2-1.3) mg/dL AST (17-59) U/L ALT (7-56) U/L Alkaline Phosphatase (38-126) U/L Total Protein (5.8-8.3) g/dL Albumin (3.0-4.8) g/dL Globulin gm/dL Albumin/Globulin Ratio (1.1-1.8) Amylase (35-125) U/L Lipase (23-300) U/L Ur Strep pneumoniae Ag Blood Type Antibody Screen BBK History Checked 09/08/17 Range/Units 20:00 WBC (4.5-11.0) 10^3/ul RBC (3.5-6.1) 10^6/uL Hgb (14.0-18.0) g/dL Hct (42.0-52.0) % MCV (80.0-105.0) fl MCH (25.0-35.0) pg MCHC (31.0-37.0) g/dl RDW (11.5-14.5) % Plt Count (120.0-450.0) 10^3/uL Gran % (50.0-68.0) % Lymph % (Auto) (22.0-35.0) % Caldwell % (Auto) (1.0-6.0) % Eos % (Auto) (1.5-5.0) % Baso % (Auto) (0.0-3.0) % Gran # (1.4-6.5) Lymph # (Auto) (1.2-3.4) Caldwell # (Auto) (0.1-0.6) Eos # (Auto) (0.0-0.7) Baso # (Auto) (0.0-2.0) K/mm3 PT (9.4-12.5) SECONDS INR (0.93-1.08) APTT (25.1-36.5) Seconds pCO2 (35-45) mm/Hg pO2 (80-100) mm/Hg HCO3 (21-28) mmol/L ABG pH (7.35-7.45) ABG Total CO2 (22-28) mmol.L ABG O2 Saturation (95-98) % ABG O2 Content (15-23) ML/dl ABG Base Excess (-2.0-3.0) mmol/L ABG Hemoglobin (11.7-17.4) g/dL ABG Carboxyhemoglobin (0.5-1.5) % POC ABG HHb (Measured) (0-5) % ABG Methemoglobin (0.0-3.0) % ABG O2 Capacity (16-24) mL/dl Hgb O2 Saturation (95.0-98.0) % FiO2 % Sodium (132-148) mmol/L Potassium (3.6-5.0) mmol/L Chloride (98-107) mmol/L Carbon Dioxide (21-33) mmol/L Anion Gap (10-20) BUN (7-21) mg/dL Creatinine (0.8-1.5) mg/dl Est GFR ( Amer) Est GFR (Non-Af Amer) POC Glucose (mg/dL) (65-110) mg/dL Random Glucose (70-110) mg/dL Calcium (8.4-10.5) mg/dL Phosphorus (2.5-4.5) mg/dL Magnesium (1.7-2.2) mg/dL Total Bilirubin (0.2-1.3) mg/dL AST (17-59) U/L ALT (7-56) U/L Alkaline Phosphatase (38-126) U/L Total Protein (5.8-8.3) g/dL Albumin (3.0-4.8) g/dL Globulin gm/dL Albumin/Globulin Ratio (1.1-1.8) Amylase (35-125) U/L Lipase (23-300) U/L Ur Strep pneumoniae Ag Not detected Blood Type Antibody Screen BBK History Checked Laboratory Results - last 24 hr 09/08/17 09/11/17 09/11/17 20:00 05:45 15:00 WBC RBC Hgb Hct MCV MCH MCHC RDW Plt Count Gran % Lymph % (Auto) Caldwell % (Auto) Eos % (Auto) Baso % (Auto) Gran # Lymph # (Auto) Caldwell # (Auto) Eos # (Auto) Baso # (Auto) PT 13.8 H INR 1.21 H APTT 35.8 pCO2 pO2 HCO3 ABG pH ABG Total CO2 ABG O2 Saturation ABG O2 Content ABG Base Excess ABG Hemoglobin ABG Carboxyhemoglobin POC ABG HHb (Measured) ABG Methemoglobin ABG O2 Capacity Hgb O2 Saturation FiO2 Sodium Potassium Chloride Carbon Dioxide Anion Gap BUN Creatinine Est GFR ( Amer) Est GFR (Non-Af Amer) POC Glucose (mg/dL) Random Glucose Calcium Phosphorus Magnesium 1.6 L Total Bilirubin AST ALT Alkaline Phosphatase Total Protein Albumin Globulin Albumin/Globulin Ratio Amylase Lipase Ur Strep pneumoniae Ag Not detected Blood Type Antibody Screen BBK History Checked 09/11/17 09/11/17 09/12/17 17:53 23:21 06:00 WBC 7.9 RBC 2.84 L Hgb 8.7 L Hct 27.8 L MCV 97.9 MCH 30.6 MCHC 31.3 RDW 15.2 H Plt Count 24 L* Gran % 50.6 Lymph % (Auto) 10.7 L Caldwell % (Auto) 37.1 H Eos % (Auto) 0.6 L Baso % (Auto) 1.0 Gran # 3.99 Lymph # (Auto) 0.8 L Caldwell # (Auto) 2.9 H Eos # (Auto) 0.1 Baso # (Auto) 0.08 PT INR APTT pCO2 pO2 HCO3 ABG pH ABG Total CO2 ABG O2 Saturation ABG O2 Content ABG Base Excess ABG Hemoglobin ABG Carboxyhemoglobin POC ABG HHb (Measured) ABG Methemoglobin ABG O2 Capacity Hgb O2 Saturation FiO2 Sodium Potassium Chloride Carbon Dioxide Anion Gap BUN Creatinine Est GFR ( Amer) Est GFR (Non-Af Amer) POC Glucose (mg/dL) 197 H 171 H Random Glucose Calcium Phosphorus Magnesium Total Bilirubin AST ALT Alkaline Phosphatase Total Protein Albumin Globulin Albumin/Globulin Ratio Amylase Lipase Ur Strep pneumoniae Ag Blood Type Antibody Screen BBK History Checked 09/12/17 09/12/17 09/12/17 06:00 06:00 06:00 WBC RBC Hgb Hct MCV MCH MCHC RDW Plt Count Gran % Lymph % (Auto) Caldwell % (Auto) Eos % (Auto) Baso % (Auto) Gran # Lymph # (Auto) Caldwell # (Auto) Eos # (Auto) Baso # (Auto) PT 13.4 H INR 1.16 H APTT 34.1 pCO2 pO2 HCO3 ABG pH ABG Total CO2 ABG O2 Saturation ABG O2 Content ABG Base Excess ABG Hemoglobin ABG Carboxyhemoglobin POC ABG HHb (Measured) ABG Methemoglobin ABG O2 Capacity Hgb O2 Saturation FiO2 Sodium 143 Potassium 3.7 Chloride 107 Carbon Dioxide 21 Anion Gap 18 BUN 55 H Creatinine 5.3 H Est GFR ( Amer) 14 Est GFR (Non-Af Amer) 12 POC Glucose (mg/dL) Random Glucose 198 H Calcium 8.1 L Phosphorus Magnesium Total Bilirubin 2.5 H AST 250 H D ALT 133 H Alkaline Phosphatase 83 Total Protein 5.5 L Albumin 2.7 L Globulin 2.8 Albumin/Globulin Ratio 1.0 L Amylase 33 L Lipase 137 Ur Strep pneumoniae Ag Blood Type Antibody Screen BBK History Checked 09/12/17 09/12/17 09/12/17 06:09 08:05 09:00 WBC RBC Hgb Hct MCV MCH MCHC RDW Plt Count Gran % Lymph % (Auto) Caldwell % (Auto) Eos % (Auto) Baso % (Auto) Gran # Lymph # (Auto) Caldwell # (Auto) Eos # (Auto) Baso # (Auto) PT INR APTT pCO2 pO2 HCO3 ABG pH ABG Total CO2 ABG O2 Saturation ABG O2 Content ABG Base Excess ABG Hemoglobin ABG Carboxyhemoglobin POC ABG HHb (Measured) ABG Methemoglobin ABG O2 Capacity Hgb O2 Saturation FiO2 Sodium Potassium Chloride Carbon Dioxide Anion Gap BUN Creatinine Est GFR ( Amer) Est GFR (Non-Af Amer) POC Glucose (mg/dL) 226 H Random Glucose Calcium Phosphorus 4.5 Magnesium 1.6 L Total Bilirubin AST ALT Alkaline Phosphatase Total Protein Albumin Globulin Albumin/Globulin Ratio Amylase Lipase Ur Strep pneumoniae Ag Blood Type O POSITIVE Antibody Screen Negative BBK History Checked Patient has bt 09/12/17 10:30 WBC RBC Hgb Hct MCV MCH MCHC RDW Plt Count Gran % Lymph % (Auto) Caldwell % (Auto) Eos % (Auto) Baso % (Auto) Gran # Lymph # (Auto) Caldwell # (Auto) Eos # (Auto) Baso # (Auto) PT INR APTT pCO2 47 H pO2 96.0 HCO3 21.6 ABG pH 7.27 L ABG Total CO2 23.0 ABG O2 Saturation 99.0 H ABG O2 Content 12.4 L ABG Base Excess -5.1 L ABG Hemoglobin 9.0 L ABG Carboxyhemoglobin 1.8 H POC ABG HHb (Measured) 1.0 ABG Methemoglobin 0.8 ABG O2 Capacity 12.5 L Hgb O2 Saturation 96.4 FiO2 60.0 Sodium Potassium Chloride Carbon Dioxide Anion Gap BUN Creatinine Est GFR ( Amer) Est GFR (Non-Af Amer) POC Glucose (mg/dL) Random Glucose Calcium Phosphorus Magnesium Total Bilirubin AST ALT Alkaline Phosphatase Total Protein Albumin Globulin Albumin/Globulin Ratio Amylase Lipase Ur Strep pneumoniae Ag Blood Type Antibody Screen BBK History Checked Assessment/Plan - Assessment and Plan (Free Text) Plan: Patient seen and examined, on rounds with resident, agree with note with following additions/exceptions: Patient is 47yo male PMHx of DM2, HTN and alcohol abuse found to be in septic shock , pancreatitis, aspiration pneumonia, IRWIN, transaminitis, seizures, metabolic acidosis, thrombocytopenia likely secondary to alcohol abuse, s/p cardiac arrest s/p ROSC and respiratory failure/ARDS. Currently afebrile, HD stable, comfortable, in NAD. On exam, lethargic but responds and opens eyes to painful stimuli. CT head this morning, negative for acute findings. Off pressors , FiO2 requirements are downtrending. UOP not adaquate, will start HD today, place shiley today. ARDS, resolving IRWIN PNA Pancreatitis Seizure Disorder EtOH abuse s/p Cardiac Arrest s/p ROSC Recommend: - low tidal vol ventilation, goal plateau <30 - cont with broad spectrum antibiotics as per ID - IVF hydration - place Shiley cathter, HD as per renal - FS control - monitor LFTs - Feeds - transfuse 2u platelets, DDAVP for shiley HD catheter placement - monitor UOP - GI ppx - DVT ppx Patient at high risk for morbidity and mortality Critical care time 45 minutes
[2017-09-12 07:25] LABS: INR 1.16 (0.93-1.08); PARTIAL THROMBOPLASTIN TIME 34.1 Seconds (25.1-36.5); PROTHROMBIN TIME 13.4 SECONDS (9.4-12.5)
[2017-09-12] MEDS: Budesonide 0.5 mg/2 ml Inhal Susp UD IH SCH ×2 (07:31→20:05)
[2017-09-12 07:47] LABS: AMYLASE 33 U/L (35-125); LIPASE 137 U/L (23-300)
[2017-09-12 07:49] LABS: PLATELET COUNT 24 10^3/uL (120.0-450.0)
[2017-09-12] MEDS ORDERED: Azithromycin 500MG/NS 250ml 500 MG/250 ML BAG IVPB STA (07:54)
[2017-09-12 07:56] LABS: ALBUMIN 2.7 g/dL (3.0-4.8); CALCIUM 8.1 mg/dL (8.4-10.5)
[2017-09-12] MEDS: Multi Vitamins 15 mL UD Oral Solution PO SCH (08:10)
[2017-09-12 08:26] LABS: MAGNESIUM 1.6 mg/dL (1.7-2.2)
[2017-09-12] MEDS ORDERED: Desmopressin 20 MCG in Sodium Chloride 0.9% 50 ML IV ONE (09:14)
--- NOTE | 2017-09-12 09:30 | CP.PCM.PN ---
<Jay Harden - Last Filed: 09/12/17 10:12> Subjective - Date & Time of Evaluation Date of Evaluation: 09/12/17 Time of Evaluation: 09:00 - Subjective Subjective: Jay Harden PGY1 IM Progress Note Patient was seen and examined in ICU. He remains intubated, is off sedation but is more arousable today. He is in no distress and there were no acute overnight events. Patient is off pressors. There is loose dark stools in rectal tube bag and lazo in. ROS unobtainable. Objective - Vital Signs/Intake and Output Vital Signs (last 24 hours): Temp Pulse Resp BP Pulse Ox 98.2 F 113 H 22 104/72 100 09/12/17 07:50 09/12/17 07:50 09/12/17 07:38 09/12/17 07:00 09/12/17 07:50 Intake and Output: 09/12/17 09/12/17 06:59 18:59 Intake Total 300 Output Total 350 Balance -50 - Medications Medications: Current Medications Artificial Tears (Refresh Opth Soln) 0.3 ml OU Q12 [facility] Budesonide (Pulmicort Respules) 0.5 mg IH [id number] [facility] Last Admin: 09/12/17 07:31 Dose: 0.5 mg Fentanyl (Fentanyl) 50 mcg IVP Q4H PRN PRN Reason: Agitation Folic Acid (Folic Acid) 1 mg IVP DAILY [facility] Last Admin: 09/11/17 10:40 Dose: 1 mg Levetiracetam 1,000 mg/ Sodium (Chloride) 110 mls @ 460 mls/hr IV Q12 [facility] Last Admin: 09/11/17 21:02 Dose: 460 mls/hr Desmopressin Acetate 20 mcg/ (Sodium Chloride) 55 mls @ 100 mls/hr IV ONCE ONE Stop: 09/12/17 09:43 Insulin Human Regular (Humulin R Med) 0 units SC Q6 DENIA PRN Reason: Protocol Last Admin: 09/12/17 06:49 Dose: 3 units Levalbuterol HCl (Xopenex) 0.63 mg IH [id number] [facility] Last Admin: 09/12/17 07:31 Dose: 0.63 mg Lorazepam (Ativan) 2 mg IVP Q3H PRN; Protocol PRN Reason: Agitation Last Admin: 09/11/17 22:53 Dose: 2 mg Multivitamins/Vitamin C (Multi-Delyn Liquid) 15 ml PO 0800 [facility] Last Admin: 09/11/17 08:03 Dose: 15 ml Pantoprazole Sodium (Protonix Inj) 40 mg IVP Q12 DENIA Last Admin: 09/11/17 21:04 Dose: 40 mg Thiamine HCl (Vitamin B1 Inj) 100 mg IV DAILY [facility] Vancomycin HCl (Vancocin 25 Mg/Ml (Oral Use)) 500 mg PO Q6 DENIA PRN Reason: Protocol Last Admin: 09/12/17 05:45 Dose: 500 mg - Labs Labs: 09/12/17 06:00 09/12/17 06:00 PT 13.4 SECONDS (9.4-12.5) H 09/12/17 06:00 INR 1.16 (0.93-1.08) H 09/12/17 06:00 APTT 34.1 Seconds (25.1-36.5) 09/12/17 06:00 - Additional Findings Additional findings: - Constitutional Appears: No Acute Distress - Head Exam Head Exam: ATRAUMATIC, NORMAL INSPECTION - Eye Exam Eye Exam: PERRL (sluggish), Scleral icterus - ENT Exam Additional comments: intubated - Neck Exam Neck Exam: Normal Inspection Additional comments: R IJ in place - Respiratory Exam Respiratory Exam: absent: Rales, Rhonchi, Wheezes Additional comments: intubated, on vent - Cardiovascular Exam Cardiovascular Exam: Tachycardia, +S1, +S2 - GI/Abdominal Exam GI & Abdominal Exam: Distended. absent: Tenderness Additional comments: rectal tube in place, draining dark loose stools lazo catheter in place - Extremities Exam Extremities Exam: Normal Inspection - Back Exam Back Exam: NORMAL INSPECTION - Neurological Exam Neurological Exam: Altered (GCS 7; [id number]) - Psychiatric Exam Additional comments: unable to assess - Skin Skin Exam: Normal Color Assessment and Plan - Assessment and Plan (Free Text) Assessment: 47yo M with a PMH of DM2, HTN and alcohol use who presented with URI symptoms such as cough, shortness of breath, palpitations. Last alcoholic drink was night prior to admission. Patient was admitted for septic shock (with lactate of 7.7 on presentation), high anion gap metabolic acidosis, acute pancreatitis 2 /2 ETOH vs triglycerides, IRWIN vs CKD, elevated LFTs likely 2/2 ETOH, elevated BNP, hyponatremia, and hypokalemia. s/p cardiac arrest and ROSC. Upon ROSC, patient vomited and likely aspirated, but was turned to the side and suctioned. Intubated and on vent with sedation in ICU. Patient intially required pressors to maintain BP but is no longer needing them. Remains on Keppra for seizure ppx. IRWIN is worsened, will likely require temporary dialysis catheter. Liver enzymes are improving. Lipase trending down so pancreatitis improving. Plan: 1. Septic shock - continue ICU monitoring due to unstable vitals and altered mental state - Lipase and Amylase elevated indicating pacreatitis 2/2 ETOH vs TG (>1000), trending down - cont tube foods per GI - XR abd/chest today to monitor +fluid balance - CT Findings are concerning for acute pancreatitis w/o ductal dilatation, calcifications or pseudocyst. alcoholic liver steatosis - off pressors - Maintain normothermia - tylenol supp PRN - blood cultures showed no growth - urine cultures showed no growth - stool cultures indicating cdiff +Ag/-Toxin; pt on contact precautions and PO Vanc - nose/trach aspirate culture pending - Monitor vitals - Maintain MAP > 65 - ID consulted for management of septic shock, recs appreciated - GI consulted for alcoholic pancreatitis and +stool occult blood, recs appreciated - Surgery consulted for abdominal distention, recs appreciated - Palliative care consulted for advanced directives 2. Anion gap metabolic acidosis likely 2/2 lactic acidosis and ETOH - s/p cardiac arrest 09/08 - CT Head to evaluate for continued AMS - lactate was elevated on presentation, however, increase likely 2/2 cardiac arrest - patient was intubated to protect airway due to hypoxemia and vomiting to reduce risk of aspiration - currently on Fentanyl PRN - ativan prn agitation added - Maintain SaO2 > 90% - TSH and A1C WNL - Cardiology consulted, recs appreciated 3. IRWIN vs CKD a/w Hypophosphatemia - patient will have temp dialysis catheter today per ICU team - FENa 3.2 indicating ATN - given septic shock, likely component of pre-renal and intrinsic ischemic ATN ( coarse granular casts seen on UA) - avoid nephrotoxins - Nephrology consulted, recs appreciated 4. ETOH withdrawal seizures - cont Keppra for seizure ppx - ETOH level was elevated on admission, patient stated last drink was 09/07 PM - cont IV Thiamine - UDS negative other than ETOH level - CT Head was unremarkable - Neurology consulted, recs appreciated 5. 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 Transaminitis likely w/ underlying liver disease, improving - likely 2/2 shock liver and chronic ETOH use since INR is elevated - hepatitis panel negative - HIV pending - continue to monitor 7. Poor prognosis - continue to discussion with to establish understanding of condition - Palliative care consulted Patient was seen, examined and discussed with attending, Dr. Frances Harden PGY1 Pager # [phone] <Jeanne Daniels B - Last Filed: 09/12/17 15:39> Objective - Vital Signs/Intake and Output Vital Signs (last 24 hours): Temp Pulse Resp BP Pulse Ox 98.2 F 122 H 22 152/86 H 95 09/12/17 13:55 09/12/17 14:59 09/12/17 13:55 09/12/17 15:00 09/12/17 14:59 Intake and Output: 09/12/17 09/12/17 06:59 18:59 Intake Total 300 399 Output Total 350 Balance -50 399 - Medications Medications: Current Medications Artificial Tears (Refresh Opth Soln) 0.3 ml OU Q12 [facility] Last Admin: 09/12/17 10:19 Dose: 0.3 ml Budesonide (Pulmicort Respules) 0.5 mg IH [id number] [facility] Last Admin: 09/12/17 07:31 Dose: 0.5 mg Fentanyl (Fentanyl) 50 mcg IVP Q4H PRN PRN Reason: Agitation Folic Acid (Folic Acid) 1 mg IVP DAILY [facility] Last Admin: 09/12/17 11:12 Dose: 1 mg Levetiracetam 1,000 mg/ Sodium (Chloride) 110 mls @ 460 mls/hr IV Q12 [facility] Last Admin: 09/12/17 10:18 Dose: 460 mls/hr Propofol (Diprivan) 1,000 mg in 100 mls @ 2.062 mls/hr IV .Q24H PRN; Protocol; 5 MCG/KG/MIN PRN Reason: TITRATE PER MD ORDER Last Admin: 09/12/17 12:02 Dose: 5 mcg/kg/min, 2.062 mls/hr Insulin Human Regular (Humulin R Med) 0 units SC Q6 DENIA PRN Reason: Protocol Last Admin: 09/12/17 12:00 Dose: Not Given Levalbuterol HCl (Xopenex) 0.63 mg IH [id number] [facility] Last Admin: 09/12/17 14:11 Dose: 0.63 mg Lorazepam (Ativan) 2 mg IVP Q3H PRN; Protocol PRN Reason: Agitation Last Admin: 09/12/17 09:18 Dose: 2 mg Multivitamins/Vitamin C (Multi-Delyn Liquid) 15 ml PO 0800 DENIA Last Admin: 09/12/17 08:10 Dose: 15 ml Pantoprazole Sodium (Protonix Inj) 40 mg IVP Q12 DENIA Last Admin: 09/12/17 10:10 Dose: 40 mg Thiamine HCl (Vitamin B1 Inj) 100 mg IV DAILY [facility] Last Admin: 09/12/17 10:09 Dose: 100 mg Vancomycin HCl (Vancocin 25 Mg/Ml (Oral Use)) 500 mg PO Q6 DENIA PRN Reason: Protocol Last Admin: 09/12/17 11:17 Dose: 500 mg - Labs Labs: 09/12/17 06:00 09/12/17 06:00 PT 13.4 SECONDS (9.4-12.5) H 09/12/17 06:00 INR 1.16 (0.93-1.08) H 09/12/17 06:00 APTT 34.1 Seconds (25.1-36.5) 09/12/17 06:00 Attending/Attestation - Attestation I have personally seen and examined this patient.: Yes I have fully participated in the care of the patient.: Yes I have reviewed all pertinent clinical information, including history, physical exam and plan: Yes Notes (Text): I have seen and examined the patient at bedside with the resident. Agree with the above note with the following additions/ exceptions: Briefly this is 47 year male with history of alcohol abuse, DM-2 who came initially for abdominal pain and dyspnea. He was found to be severely acidotic and had elevated lactic acid level. He was diagnosed with pancreatitis. Currently intubated. He is off sedation and pressors. Will assess his mental status. CT head showed volume loss. CXR revealed multifocal pulmonary infiltrates more suggestive of volume overload. Procal high probably due to renal failure. Blood and urine culture negative. Zosyn was stopped. He continues to have diarrhea. Rectal tube is in. Continue PO vancomycin for Cdiff colitis. ID on board. He has acute kidney injury due to SIRS vs ATN. UO is only 550 ml. Plan for HD today for volume overload. DDAVP and platelets will be given. IR was consulted for catheter placement. Repeat lipase level normalized. Abdomen ultrasound revealed no evidence of pancreatitis. Tube feeds was started. Echo revealed normal EF. Continue seizure precautions, keppra, thiamine, folate and MVI. EEG result pending. Hyponatremia and hypokalemia has resolved. Elevated LFTs probably due to worsening liver failure due to shock liver/alcohol abuse. He has worsening kidney function. Will closely monitor Is Os. He has anemia and thrombocytopenia which can be due to alcohol induced BM suppression vs sepsis induced coagulopathy. Overall prognosis is poor. Palliative care consult pending. Dr Jeanne Daniels
--- NOTE | 2017-09-12 09:51 | CT ---
PROCEDURE: CT HEAD WITHOUT CONTRAST. HISTORY: Altered mental status COMPARISON: 09/09/2017. TECHNIQUE: Axial computed tomography images were obtained through the head/brain without intravenous contrast. Radiation dose: Total exam DLP = 951.76 mGy-cm. This CT exam was performed using one or more of the following dose reduction techniques: Automated exposure control, adjustment of the mA and/or kV according to patient size, and/or use of iterative reconstruction technique. FINDINGS: HEMORRHAGE: No intracranial hemorrhage. BRAIN: There are mild chronic microangiopathic changes. There is no mass, effect or abnormal extra-axial collection VENTRICLES: There is moderate global parenchymal volume loss and proportionate enlargement of the ventricles and cortical sulci, advanced for the patient's age. CALVARIUM: The skullbase and calvarium are normal. PARANASAL SINUSES: There are fluid levels in the left maxillary and sphenoid sinuses, secretions in the nasopharynx and mucoperiosteal thickening in the ethmoid air cells and right maxillary, expected in intubated patients. MASTOID AIR CELLS: Bilateral mastoid air cells are underdeveloped. OTHER FINDINGS: None. IMPRESSION: No acute intracranial abnormality. Mild chronic microangiopathic changes. Moderate global parenchymal volume loss, advanced for the patient's age.
[2017-09-12] MEDS: Thiamine 100 mg/ml Inj IV SCH (10:09)
[2017-09-12] MEDS: levETIRAcetam 1,000 MG in Sodium Chloride 0.9% 100 ML IV SCH ×2 (10:18→22:41)
[2017-09-12] MEDS: Lubricant Eye Drops UD OU SCH ×2 (10:19→23:00)
--- NOTE | 2017-09-12 10:21 | RAD ---
HISTORY: intubated on vent COMPARISON: 09/11/2017 FINDINGS: Stable position of the endotracheal tube in the mid trachea. The nasogastric tube terminates in the stomach. The right IJV line terminates in the SVC. LUNGS: There is worsening haziness in the lungs with multifocal airspace disease, worse in the right upper and lower lobes. PLEURA: No pneumothorax apparent. Suspect layering pleural effusions. CARDIOVASCULAR: Normal. OSSEOUS STRUCTURES: No significant abnormalities. VISUALIZED UPPER ABDOMEN: Normal. OTHER FINDINGS: None. IMPRESSION: Worsening right upper and lower lobe pneumonia. Suspect layering pleural pleural effusions. Superimposed alveolar pulmonary edema cannot be excluded. Follow-up is advised.
--- NOTE | 2017-09-12 10:25 | RAD ---
HISTORY: abdominal firm COMPARISON: No prior. FINDINGS: BOWEL: The bowel gas pattern is nonspecific. No bowel dilatation or obstruction. BONES: Normal. OTHER FINDINGS: None. IMPRESSION: Nonobstructive bowel-gas pattern.
[2017-09-12 10:32] LABS: ARTERIAL BLOOD GAS HCO3 21.6 mmol/L (21-28); ARTERIAL BLOOD GAS O2 CAPACITY 12.5 mL/dl (16-24); ARTERIAL BLOOD GAS O2 CONTENT 12.4 ML/dl (15-23); ARTERIAL BLOOD GAS PCO2 47 mm/Hg (35-45); ARTERIAL BLOOD GAS PH 7.27 (7.35-7.45)
[2017-09-12] MEDS ORDERED: Propofol 10 mg/ml 1,000 MG/100 ML VIAL ONE (11:56)
[2017-09-12] MEDS: Propofol 10 mg/ml 1,000 MG/100 ML VIAL IV PRN (12:02)
--- NOTE | 2017-09-12 14:49 | PCM.PROC ---
Procedures Attestation:: I certify that I have explained the specified Operation(s) or Procedure(s), risks, benefits and reasonable alternatives to the Patient and/or other person responsible. The opportunity was given to ask questions and all questions answered - Central Line Placement Right Femoral Hemodialysis Access Aseptic technique was employed throughout the procedure: Hand Hygiene done prior to procedure, Full sterile barriers (mask, hair cover, sterile gown, sterile gloves), Full body sterile drape, Chloraprep Antiseptic: 2 minute prep for Femoral CVP Time Out Performed: Yes Pt. Placed on Pulse Ox Monitor: Yes Central Line Prep: Chlorhexidine-Alcohol Combination Ultrasound Used for Placement: Yes Central Line Lumen Inserted: triple Central Line Length: 20 cm Post Procedure: Sutured in Place, Good Blood Return, All Ports Aspirated, Flushed, Capped, Sterile Dressing Applied Secured by: Suture Post procedure dressing: Clear vapor permeable, Chlorhexidine disc (Biopatch) Post Procedure X-Ray: No Patient Tolerated Procedure: No Complications Immediate Complications: None Additional Comments: R femoral dialysis catheter placed under the guidance and supervision of ICU employee relations director Dr. Bustamante
--- NOTE | 2017-09-12 16:28 | CP.PCM.PN ---
Subjective - Date & Time of Evaluation Date of Evaluation: 09/12/17 Time of Evaluation: 16:28 - Subjective Subjective: Follow up Nephrology Consultation: Assessment: critical Acute Kidney Injury (N17.9) likely due to pre-renal state, SIRS, Acute tubular necrosis Hyponatermia, hypokalemia DM, HTN, chronic alcoholism, hepatic dysfunction acute pancreatitis HAGMA with lactic acidosis + alcohol ketoacidosis and starvation ketoacidosis Thrombocytopenia Hypomagnesemia, hypophosphatemia s/p cardiac arrest, seizure ARDS Plan considering 10 L + fluid balance, ARDS pattern and oligoanuria, no response to lasix, high vent requirements renal replacement therapy initiation is indicated. d/w ICU team dialysis 1st session today Patient not on ACEI/ARB due to IRWIN. maintain hemodynamics stable Monitor Input/Output, daily weights and renal function with basic metabolic panel CT abdomen showed acute pancreatitis and fatty liver continue with folic acid MVI, thiamine supplements supplement electrolytes hold metformin Dose meds/antibiotics for reduced GFR. Avoid fleets enema/magnesium based laxatives. Avoid nephrotoxins/NSAIDs/ iodinated contrast (unless needed emergently) Glycemic control Further work up/management as per primary team overall prognosis poor Thanks for allowing me to participate in care of your patient. Will follow patient with you. Please call if any Qs/. d/w team Dr Finn Ng Office: [phone] Chief Complaint; unable HPI: Pt is a 47 M with hx of diabetes Mellitus hypertension and chronic daily Etoh abuse presented with SOB, pain abdomen and not feeling well renal consult for IRWIN and acidosis pt unable to provide any hx no hx noted for any spurious or toxic alcohol ingestion ROS: unable Physical Examination: General Appearance: ill appearing. on 80% FiO2 and PEEP 10, O2 sat 98%. CVP 12- 14 Vitals reviewed and noted as below Head; Atraumatic, normocephalic ENT: intubated Neck; supple no lymphadenopathy, no thyromegaly or bruit Lungs: Increased respiratory rate/effort. Breath sounds bilateral equal and with basal rales Heart: Increased rate. s1s2 normal. No rub or gallop. Extremities: no edema. No varicose veins Neurological: Patient is sedated Skin: Warm and dry. Normal turgor. No rash. Palpitation: Normal elasticity for age Abdomen: Abdomen is soft. Bowel sounds decreased. There is mild abdominal tenderness, no guarding/rigidity no organomegaly. distended. has rectal tube Psych: unable MSK: no joint tenderness or swelling. has clubbing : kidney or bladder not palpable Labs/imaging reviewed. Past medical history, past surgical history, family history, social history, allergy reviewed and noted as below Family hx: no hx of CKD. Rest non-contributory UA no crystals but has ketone and protein Objective - Vital Signs/Intake and Output Vital Signs (last 24 hours): Temp Pulse Resp BP Pulse Ox 98.2 F 122 H 22 152/86 H 95 09/12/17 13:55 09/12/17 14:59 09/12/17 13:55 09/12/17 15:00 09/12/17 14:59 Intake and Output: 09/12/17 09/12/17 06:59 18:59 Intake Total 300 399 Output Total 350 Balance -50 399 - Medications Medications: Current Medications Artificial Tears (Refresh Opth Soln) 0.3 ml OU Q12 [facility] Last Admin: 09/12/17 10:19 Dose: 0.3 ml Budesonide (Pulmicort Respules) 0.5 mg IH [id number] [facility] Last Admin: 09/12/17 07:31 Dose: 0.5 mg Fentanyl (Fentanyl) 50 mcg IVP Q4H PRN PRN Reason: Agitation Folic Acid (Folic Acid) 1 mg IVP DAILY [facility] Last Admin: 09/12/17 11:12 Dose: 1 mg Levetiracetam 1,000 mg/ Sodium (Chloride) 110 mls @ 460 mls/hr IV Q12 [facility] Last Admin: 09/12/17 10:18 Dose: 460 mls/hr Propofol (Diprivan) 1,000 mg in 100 mls @ 2.062 mls/hr IV .Q24H PRN; Protocol; 5 MCG/KG/MIN PRN Reason: TITRATE PER MD ORDER Last Admin: 09/12/17 12:02 Dose: 5 mcg/kg/min, 2.062 mls/hr Insulin Human Regular (Humulin R Med) 0 units SC Q6 DENIA PRN Reason: Protocol Last Admin: 09/12/17 12:00 Dose: Not Given Levalbuterol HCl (Xopenex) 0.63 mg IH [id number] [facility] Last Admin: 09/12/17 14:11 Dose: 0.63 mg Lorazepam (Ativan) 2 mg IVP Q3H PRN; Protocol PRN Reason: Agitation Last Admin: 09/12/17 09:18 Dose: 2 mg Multivitamins/Vitamin C (Multi-Delyn Liquid) 15 ml PO 0800 [facility] Last Admin: 09/12/17 08:10 Dose: 15 ml Pantoprazole Sodium (Protonix Inj) 40 mg IVP Q12 DENIA Last Admin: 09/12/17 10:10 Dose: 40 mg Thiamine HCl (Vitamin B1 Inj) 100 mg IV DAILY [facility] Last Admin: 09/12/17 10:09 Dose: 100 mg Vancomycin HCl (Vancocin 25 Mg/Ml (Oral Use)) 500 mg PO Q6 DENIA PRN Reason: Protocol Last Admin: 09/12/17 11:17 Dose: 500 mg - Labs Labs: 09/12/17 06:00 09/12/17 06:00 PT 13.4 SECONDS (9.4-12.5) H 09/12/17 06:00 INR 1.16 (0.93-1.08) H 09/12/17 06:00 APTT 34.1 Seconds (25.1-36.5) 09/12/17 06:00
--- NOTE | 2017-09-12 17:49 | PN ---
DATE: 09/12/2017 SUBJECTIVE: The patient remains in intensive care on the ventilator. He does not respond to any verbal or tactile stimuli. PHYSICAL EXAMINATION: VITAL SIGNS: Reveal temperature of 98, blood pressure of 111/73, and heart rate 111. HEENT: Reveal an endotracheal tube in his mouth. He has an NG tube in his nose. NECK: Supple. CHEST: Reveal lungs to be clear. HEART: Reveals a regular rate and rhythm. ABDOMEN: Softly distended, nontender. EXTREMITIES: Show no edema. LABORATORY DATA: Reveal hemoglobin of 8.7, white blood cell count 7.9, platelet count 24,000. BUN 55, creatinine 5.3, blood sugar 198. Total bilirubin is 2.5, AST down to 250, ALT down to 133, and albumin at 2.7. IMPRESSION: 1. Respiratory failure. 2. Status post cardiac arrest. 3. Alcoholic liver disease. 4. Status post pancreatitis. 5. Pseudomembranous colitis. 6. Thrombocytopenia, most likely secondary to alcohol use. RECOMMENDATIONS: 1. The patient is to receive 2 units of platelets prior to going for a Shiley tube insertion for hemodialysis. 2. Continue vancomycin. 3. Continue enteral feeds. Bob Borden MD
--- NOTE | 2017-09-12 20:09 | PN ---
DATE: 09/12/2017 SUBJECTIVE: The patient is in bed, in no acute distress. The patient was seen earlier this morning in 128, bed 4. PHYSICAL EXAMINATION: VITAL SIGNS: Temperature is 98, blood pressure is 150/80, respiratory rate on a vent, and heart rate of 109. HEENT: Reveals ET tube in place. NECK: Supple. LUNGS: Decreased breath sounds. HEART: Normal S1 and S2. ABDOMEN: Soft and nontender. LABORATORY DATA: Reveals a white count of 7.9 and hemoglobin of 8. BUN of 55, creatinine is 5.3, and AST is 250. Procalcitonin is 1.60. Microbiology reveals the blood cultures have no growth and nasal MRSA is not detected. C. diff antigen is positive. ASSESSMENT AND PLAN: This is a 47-year-old male, seen earlier in 128, bed 4 with a systemic inflammatory response syndrome, ventilatory dependent respiratory failure with severe sepsis, pseudomembranous difficile diarrhea on top of acute alcoholic pancreatitis, thrombocytopenia, alcoholic liver disease, diabetes mellitus, hypertension. Currently day #3 of p.o. vancomycin with complete 14 days of p.o. vancomycin. The patient is at risk for developing nosocomial infections. Jason Oreilly MD
[2017-09-13] MEDS: Insulin Reg-MEDIUM-Coverage SC SCH ×4 (00:13→19:31)
[2017-09-13] MEDS: Levalbuterol 0.63 MG/3 ML Inhal Soln UD IH SCH ×4 (03:16→20:00)
[2017-09-13] MEDS: Propofol 10 mg/ml 1,000 MG/100 ML VIAL IV PRN ×2 (03:58→06:47)
[2017-09-13 06:21] LABS: BASO # 0.45 K/mm3 (0.0-2.0); BASO % 3.7 % (0.0-3.0); EOS # 0.1 (0.0-0.7); EOS % 0.7 % (1.5-5.0); HEMOGLOBIN 9.3 g/dL (14.0-18.0); MEAN CELL VOLUME 96.7 fl (80.0-105.0); MEAN CORPUSCULAR HEMOGLOBIN 31.1 pg (25.0-35.0); MEAN CORPUSCULAR HGB CONC 32.2 g/dl (31.0-37.0); MEAN PLATELET VOLUME 10.6 fl (7.0-11.0); MONO # 1.7 (0.1-0.6); MONO % 14.1 % (1.0-6.0); PLATELET COUNT 53 10^3/uL (120.0-450.0); RBC 2.99 10^6/uL (3.5-6.1); RED CELL DISTRIBUTION WIDTH 15.8 % (11.5-14.5); WHITE BLOOD COUNT 12.2 10^3/ul (4.5-11.0)
[2017-09-13] MEDS: Vancomycin 25 MG/ML PO SCH ×3 (06:36→18:47)
--- NOTE | 2017-09-13 06:49 | CP.CCUPN ---
CCU Subjective - Physician Review Subjective (Free Text): 09/12/17 09:31 PGY2 ICU Progress note for Dr. Bustamante Patient seen and examined at bedside. As per nursing patient had one episode of agitation overnight while being suctioned and required ativan. Patient's sedation has been off for 24 hours. Intubated on vent (420, 22, 60%, 10). Opens eyes to pain. Patient was given 1 dose of lasix 40mg overnight and made 300cc UO. No output in rectal tube this AM. Feeds @ 20cc/hr with residual of 100cc this AM. ROS unobtainable. CCU Objective - Vital Signs / Intake & Output Vital Signs (Last 4 hours): Vital Signs Pulse Resp BP Pulse Ox 09/13/17 06:15 94 H 27 H 96 09/13/17 06:00 98 H 31 H 140/94 H 95 09/13/17 05:45 88 22 96 09/13/17 05:30 89 22 96 09/13/17 05:15 88 22 96 09/13/17 05:00 122/77 09/13/17 04:59 91 H 22 96 09/13/17 04:45 94 H 22 99 09/13/17 04:30 100 H 31 H 92 L 09/13/17 04:15 100 H 23 94 L 09/13/17 04:00 124/87 09/13/17 03:59 84 22 98 09/13/17 03:45 76 22 99 09/13/17 03:30 77 22 99 09/13/17 03:15 85 98 09/13/17 03:04 86 98 09/13/17 03:03 85 98 09/13/17 03:02 85 98 09/13/17 03:01 85 98 09/13/17 03:00 121/89 09/13/17 02:59 85 98 09/13/17 02:58 85 99 09/13/17 02:57 84 99 09/13/17 02:56 86 99 09/13/17 02:55 84 99 09/13/17 02:54 84 99 09/13/17 02:53 87 99 09/13/17 02:52 86 99 09/13/17 02:51 87 99 09/13/17 02:50 85 99 Intake and Output (Last 8hrs): Intake & Output 09/12/17 09/12/17 09/13/17 14:59 22:59 06:59 Intake Total 399 263 348 Output Total 1220 110 Balance 399 -957 238 Weight 76.657 kg 79.878 kg Intake: IV 0 63 348 Propofol 63 148 Tube Feeding 200 Blood Product 399 Apheresis Plts Acda Lr 201 Irr 3rd Unit [id number] Apheresis Plts Acda Lr 198 Irr 3rd Unit [id number] Output: Urine 250 110 Urethral (Chance) 250 110 Stool 70 Other 900 - Physical Exam Head: Positive for: Atraumatic, Normocephalic Pupils: Positive for: Sluggish Extroacular Muscles: Positive for: Other (exopthalmic) Conjunctiva: Positive for: Normal Mouth: Positive for: Moist Mucous Membranes, Other (ET tube in place) Neck: Positive for: Other (R IJ TLC in place). Negative for: Lymphadenopathy Respiratory/Chest: Positive for: Rales (at bases), Other (intubated on vent (60 , 10, 22, 420)). Negative for: Accessory Muscle Use, Wheezes, Retracting, Rhonchi, Tachypneic Cardiovascular: Positive for: Normal S1, S2, Tachycardic. Negative for: Regular Rate and Rhythm, Murmurs Abdomen: Positive for: Distention, Normal Bowel Sounds. Negative for: Tenderness, Peritoneal Signs Genitourinary Male: Positive for: Penile Swelling Back: Positive for: Normal Inspection Upper Extremity: Positive for: Normal Inspection. Negative for: Cyanosis, Edema Lower Extremity: Positive for: Normal Inspection. Negative for: Edema, CALF TENDERNESS Neurological: Positive for: Other (intubated- reacts to pain; no sedation). Negative for: GCS=15 Skin: Positive for: Warm, Dry, Other (bullae on left dorsal surface of hand). Negative for: Rashes Psychiatric: Negative for: Alert, Oriented x 3, Normal Insight, Normal Concentration - Medications Active Medications: Active Medications Generic Name Dose Route Start Last Admin Trade Name Freq PRN Reason Stop Dose Admin Artificial Tears 0.3 ml 09/12/17 10:00 09/12/17 23:00 Refresh Opth Soln OU 0.3 ml Q12 DENIA Administration Budesonide 0.5 mg 09/09/17 08:00 09/12/17 20:05 Pulmicort Respules IH 0.5 mg [id number] DENIA Administration Fentanyl 50 mcg 09/11/17 09:21 Fentanyl IVP Q4H PRN Agitation Folic Acid 1 mg 09/10/17 10:00 09/12/17 11:12 Folic Acid IVP 1 mg DAILY DENIA Administration Levetiracetam 1,000 mg/ Sodium 110 mls @ 460 mls/hr 09/10/17 10:00 09/12/17 22:41 Chloride IV 460 mls/hr Q12 DENIA Administration Propofol 1,000 mg in 100 mls @ 2.062 mls/hr 09/12/17 11:52 09/13/17 06:47 Diprivan IV 40 mcg/kg/min .Q24H PRN 16.493 mls/hr TITRATE PER MD ORDER Administration Protocol 5 MCG/KG/MIN Insulin Human Regular 0 units 09/12/17 00:00 09/13/17 00:13 Humulin R Med SC Not Given Q6 DENIA Protocol Levalbuterol HCl 0.63 mg 09/10/17 20:00 09/13/17 03:16 Xopenex IH 0.63 mg [id number] DENIA Administration Lorazepam 2 mg 09/10/17 09:16 09/12/17 09:18 Ativan IVP 2 mg Q3H PRN Administration Agitation Protocol Multivitamins/Vitamin C 15 ml 09/11/17 08:00 09/12/17 08:10 Multi-Delyn Liquid PO 15 ml 0800 DENIA Administration Pantoprazole Sodium 40 mg 09/10/17 10:00 09/12/17 22:43 Protonix Inj IVP 40 mg Q12 DENIA Administration Thiamine HCl 100 mg 09/12/17 10:00 09/12/17 10:09 Vitamin B1 Inj IV 100 mg DAILY DENIA Administration Vancomycin HCl 500 mg 09/09/17 18:00 09/13/17 06:36 Vancocin 25 Mg/Ml (Oral Use) PO 500 mg Q6 DENIA Administration Protocol - Patient Studies Lab Studies: Microbiology Studies 09/08/17 12:30 Blood Culture - Preliminary Blood-Venous NO GROWTH AFTER 4 DAYS Lab Studies 09/13/17 09/12/17 09/12/17 Range/Units 05:59 23:49 18:07 WBC 12.2 H D (4.5-11.0) 10^3/ul RBC 2.99 L (3.5-6.1) 10^6/uL Hgb 9.3 L (14.0-18.0) g/dL Hct 28.9 L (42.0-52.0) % MCV 96.7 (80.0-105.0) fl MCH 31.1 (25.0-35.0) pg MCHC 32.2 (31.0-37.0) g/dl RDW 15.8 H (11.5-14.5) % Plt Count 53 L (120.0-450.0) 10^3/uL MPV 10.6 (7.0-11.0) fl Gran % (50.0-68.0) % Lymph % (Auto) (22.0-35.0) % [place] % (Auto) 14.1 H (1.0-6.0) % Eos % (Auto) 0.7 L (1.5-5.0) % Baso % (Auto) 3.7 H (0.0-3.0) % Gran # (1.4-6.5) Lymph # (Auto) (1.2-3.4) [place] # (Auto) 1.7 H (0.1-0.6) Eos # (Auto) 0.1 (0.0-0.7) Baso # (Auto) 0.45 (0.0-2.0) K/mm3 PT (9.4-12.5) SECONDS INR (0.93-1.08) APTT (25.1-36.5) Seconds pCO2 (35-45) mm/Hg pO2 (80-100) mm/Hg HCO3 (21-28) mmol/L ABG pH (7.35-7.45) ABG Total CO2 (22-28) mmol.L ABG O2 Saturation (95-98) % ABG O2 Content (15-23) ML/dl ABG Base Excess (-2.0-3.0) mmol/L ABG Hemoglobin (11.7-17.4) g/dL ABG Carboxyhemoglobin (0.5-1.5) % POC ABG HHb (Measured) (0-5) % ABG Methemoglobin (0.0-3.0) % ABG O2 Capacity (16-24) mL/dl Hgb O2 Saturation (95.0-98.0) % FiO2 % Sodium (132-148) mmol/L Potassium (3.6-5.0) mmol/L Chloride (98-107) mmol/L Carbon Dioxide (21-33) mmol/L Anion Gap (10-20) BUN (7-21) mg/dL Creatinine (0.8-1.5) mg/dl Est GFR ( Amer) Est GFR (Non-Af Amer) POC Glucose (mg/dL) 153 H 150 H (65-110) mg/dL Random Glucose (70-110) mg/dL Calcium (8.4-10.5) mg/dL Phosphorus (2.5-4.5) mg/dL Magnesium (1.7-2.2) mg/dL Total Bilirubin (0.2-1.3) mg/dL AST (17-59) U/L ALT (7-56) U/L Alkaline Phosphatase (38-126) U/L Total Protein (5.8-8.3) g/dL Albumin (3.0-4.8) g/dL Globulin gm/dL Albumin/Globulin Ratio (1.1-1.8) Amylase (35-125) U/L Lipase (23-300) U/L Mycoplasma pneumon IgG (<=0.90) Mycoplasma pneumon IgM (<770) U/mL Blood Type Antibody Screen BBK History Checked 09/12/17 09/12/17 09/12/17 Range/Units 18:00 11:50 10:30 WBC (4.5-11.0) 10^3/ul RBC (3.5-6.1) 10^6/uL Hgb (14.0-18.0) g/dL Hct (42.0-52.0) % MCV (80.0-105.0) fl MCH (25.0-35.0) pg MCHC (31.0-37.0) g/dl RDW (11.5-14.5) % Plt Count (120.0-450.0) 10^3/uL MPV (7.0-11.0) fl Gran % (50.0-68.0) % Lymph % (Auto) (22.0-35.0) % [place] % (Auto) (1.0-6.0) % Eos % (Auto) (1.5-5.0) % Baso % (Auto) (0.0-3.0) % Gran # (1.4-6.5) Lymph # (Auto) (1.2-3.4) [place] # (Auto) (0.1-0.6) Eos # (Auto) (0.0-0.7) Baso # (Auto) (0.0-2.0) K/mm3 PT (9.4-12.5) SECONDS INR (0.93-1.08) APTT (25.1-36.5) Seconds pCO2 47 H (35-45) mm/Hg pO2 96.0 (80-100) mm/Hg HCO3 21.6 (21-28) mmol/L ABG pH 7.27 L (7.35-7.45) ABG Total CO2 23.0 (22-28) mmol.L ABG O2 Saturation 99.0 H (95-98) % ABG O2 Content 12.4 L (15-23) ML/dl ABG Base Excess -5.1 L (-2.0-3.0) mmol/L ABG Hemoglobin 9.0 L (11.7-17.4) g/dL ABG Carboxyhemoglobin 1.8 H (0.5-1.5) % POC ABG HHb (Measured) 1.0 (0-5) % ABG Methemoglobin 0.8 (0.0-3.0) % ABG O2 Capacity 12.5 L (16-24) mL/dl Hgb O2 Saturation 96.4 (95.0-98.0) % FiO2 60.0 % Sodium (132-148) mmol/L Potassium (3.6-5.0) mmol/L Chloride (98-107) mmol/L Carbon Dioxide (21-33) mmol/L Anion Gap (10-20) BUN (7-21) mg/dL Creatinine (0.8-1.5) mg/dl Est GFR ( Amer) Est GFR (Non-Af Amer) POC Glucose (mg/dL) 146 H 131 H (65-110) mg/dL Random Glucose (70-110) mg/dL Calcium (8.4-10.5) mg/dL Phosphorus (2.5-4.5) mg/dL Magnesium (1.7-2.2) mg/dL Total Bilirubin (0.2-1.3) mg/dL AST (17-59) U/L ALT (7-56) U/L Alkaline Phosphatase (38-126) U/L Total Protein (5.8-8.3) g/dL Albumin (3.0-4.8) g/dL Globulin gm/dL Albumin/Globulin Ratio (1.1-1.8) Amylase (35-125) U/L Lipase (23-300) U/L Mycoplasma pneumon IgG (<=0.90) Mycoplasma pneumon IgM (<770) U/mL Blood Type Antibody Screen BBK History Checked 09/12/17 09/12/17 09/12/17 Range/Units 09:00 08:05 07:25 WBC (4.5-11.0) 10^3/ul RBC (3.5-6.1) 10^6/uL Hgb (14.0-18.0) g/dL Hct (42.0-52.0) % MCV (80.0-105.0) fl MCH (25.0-35.0) pg MCHC (31.0-37.0) g/dl RDW (11.5-14.5) % Plt Count (120.0-450.0) 10^3/uL MPV (7.0-11.0) fl Gran % (50.0-68.0) % Lymph % (Auto) (22.0-35.0) % [place] % (Auto) (1.0-6.0) % Eos % (Auto) (1.5-5.0) % Baso % (Auto) (0.0-3.0) % Gran # (1.4-6.5) Lymph # (Auto) (1.2-3.4) [place] # (Auto) (0.1-0.6) Eos # (Auto) (0.0-0.7) Baso # (Auto) (0.0-2.0) K/mm3 PT (9.4-12.5) SECONDS INR (0.93-1.08) APTT (25.1-36.5) Seconds pCO2 (35-45) mm/Hg pO2 (80-100) mm/Hg HCO3 (21-28) mmol/L ABG pH (7.35-7.45) ABG Total CO2 (22-28) mmol.L ABG O2 Saturation (95-98) % ABG O2 Content (15-23) ML/dl ABG Base Excess (-2.0-3.0) mmol/L ABG Hemoglobin (11.7-17.4) g/dL ABG Carboxyhemoglobin (0.5-1.5) % POC ABG HHb (Measured) (0-5) % ABG Methemoglobin (0.0-3.0) % ABG O2 Capacity (16-24) mL/dl Hgb O2 Saturation (95.0-98.0) % FiO2 % Sodium (132-148) mmol/L Potassium (3.6-5.0) mmol/L Chloride (98-107) mmol/L Carbon Dioxide (21-33) mmol/L Anion Gap (10-20) BUN (7-21) mg/dL Creatinine (0.8-1.5) mg/dl Est GFR ( Amer) Est GFR (Non-Af Amer) POC Glucose (mg/dL) 192 H (65-110) mg/dL Random Glucose (70-110) mg/dL Calcium (8.4-10.5) mg/dL Phosphorus 4.5 (2.5-4.5) mg/dL Magnesium 1.6 L (1.7-2.2) mg/dL Total Bilirubin (0.2-1.3) mg/dL AST (17-59) U/L ALT (7-56) U/L Alkaline Phosphatase (38-126) U/L Total Protein (5.8-8.3) g/dL Albumin (3.0-4.8) g/dL Globulin gm/dL Albumin/Globulin Ratio (1.1-1.8) Amylase (35-125) U/L Lipase (23-300) U/L Mycoplasma pneumon IgG (<=0.90) Mycoplasma pneumon IgM (<770) U/mL Blood Type O POSITIVE Antibody Screen Negative BBK History Checked Patient has bt 09/12/17 09/12/17 09/12/17 Range/Units 06:00 06:00 06:00 WBC (4.5-11.0) 10^3/ul RBC (3.5-6.1) 10^6/uL Hgb (14.0-18.0) g/dL Hct (42.0-52.0) % MCV (80.0-105.0) fl MCH (25.0-35.0) pg MCHC (31.0-37.0) g/dl RDW (11.5-14.5) % Plt Count (120.0-450.0) 10^3/uL MPV (7.0-11.0) fl Gran % (50.0-68.0) % Lymph % (Auto) (22.0-35.0) % [place] % (Auto) (1.0-6.0) % Eos % (Auto) (1.5-5.0) % Baso % (Auto) (0.0-3.0) % Gran # (1.4-6.5) Lymph # (Auto) (1.2-3.4) [place] # (Auto) (0.1-0.6) Eos # (Auto) (0.0-0.7) Baso # (Auto) (0.0-2.0) K/mm3 PT 13.4 H (9.4-12.5) SECONDS INR 1.16 H (0.93-1.08) APTT 34.1 (25.1-36.5) Seconds pCO2 (35-45) mm/Hg pO2 (80-100) mm/Hg HCO3 (21-28) mmol/L ABG pH (7.35-7.45) ABG Total CO2 (22-28) mmol.L ABG O2 Saturation (95-98) % ABG O2 Content (15-23) ML/dl ABG Base Excess (-2.0-3.0) mmol/L ABG Hemoglobin (11.7-17.4) g/dL ABG Carboxyhemoglobin (0.5-1.5) % POC ABG HHb (Measured) (0-5) % ABG Methemoglobin (0.0-3.0) % ABG O2 Capacity (16-24) mL/dl Hgb O2 Saturation (95.0-98.0) % FiO2 % Sodium 143 (132-148) mmol/L Potassium 3.7 (3.6-5.0) mmol/L Chloride 107 (98-107) mmol/L Carbon Dioxide 21 (21-33) mmol/L Anion Gap 18 (10-20) BUN 55 H (7-21) mg/dL Creatinine 5.3 H (0.8-1.5) mg/dl Est GFR ( Amer) 14 Est GFR (Non-Af Amer) 12 POC Glucose (mg/dL) (65-110) mg/dL Random Glucose 198 H (70-110) mg/dL Calcium 8.1 L (8.4-10.5) mg/dL Phosphorus (2.5-4.5) mg/dL Magnesium (1.7-2.2) mg/dL Total Bilirubin 2.5 H (0.2-1.3) mg/dL AST 250 H D (17-59) U/L ALT 133 H (7-56) U/L Alkaline Phosphatase 83 (38-126) U/L Total Protein 5.5 L (5.8-8.3) g/dL Albumin 2.7 L (3.0-4.8) g/dL Globulin 2.8 gm/dL Albumin/Globulin Ratio 1.0 L (1.1-1.8) Amylase 33 L (35-125) U/L Lipase 137 (23-300) U/L Mycoplasma pneumon IgG (<=0.90) Mycoplasma pneumon IgM (<770) U/mL Blood Type Antibody Screen BBK History Checked 09/12/17 09/08/17 Range/Units 06:00 19:55 WBC 7.9 (4.5-11.0) 10^3/ul RBC 2.84 L (3.5-6.1) 10^6/uL Hgb 8.7 L (14.0-18.0) g/dL Hct 27.8 L (42.0-52.0) % MCV 97.9 (80.0-105.0) fl MCH 30.6 (25.0-35.0) pg MCHC 31.3 (31.0-37.0) g/dl RDW 15.2 H (11.5-14.5) % Plt Count 24 L* (120.0-450.0) 10^3/uL MPV (7.0-11.0) fl Gran % 50.6 (50.0-68.0) % Lymph % (Auto) 10.7 L (22.0-35.0) % [place] % (Auto) 37.1 H (1.0-6.0) % Eos % (Auto) 0.6 L (1.5-5.0) % Baso % (Auto) 1.0 (0.0-3.0) % Gran # 3.99 (1.4-6.5) Lymph # (Auto) 0.8 L (1.2-3.4) [place] # (Auto) 2.9 H (0.1-0.6) Eos # (Auto) 0.1 (0.0-0.7) Baso # (Auto) 0.08 (0.0-2.0) K/mm3 PT (9.4-12.5) SECONDS INR (0.93-1.08) APTT (25.1-36.5) Seconds pCO2 (35-45) mm/Hg pO2 (80-100) mm/Hg HCO3 (21-28) mmol/L ABG pH (7.35-7.45) ABG Total CO2 (22-28) mmol.L ABG O2 Saturation (95-98) % ABG O2 Content (15-23) ML/dl ABG Base Excess (-2.0-3.0) mmol/L ABG Hemoglobin (11.7-17.4) g/dL ABG Carboxyhemoglobin (0.5-1.5) % POC ABG HHb (Measured) (0-5) % ABG Methemoglobin (0.0-3.0) % ABG O2 Capacity (16-24) mL/dl Hgb O2 Saturation (95.0-98.0) % FiO2 % Sodium (132-148) mmol/L Potassium (3.6-5.0) mmol/L Chloride (98-107) mmol/L Carbon Dioxide (21-33) mmol/L Anion Gap (10-20) BUN (7-21) mg/dL Creatinine (0.8-1.5) mg/dl Est GFR ( Amer) Est GFR (Non-Af Amer) POC Glucose (mg/dL) (65-110) mg/dL Random Glucose (70-110) mg/dL Calcium (8.4-10.5) mg/dL Phosphorus (2.5-4.5) mg/dL Magnesium (1.7-2.2) mg/dL Total Bilirubin (0.2-1.3) mg/dL AST (17-59) U/L ALT (7-56) U/L Alkaline Phosphatase (38-126) U/L Total Protein (5.8-8.3) g/dL Albumin (3.0-4.8) g/dL Globulin gm/dL Albumin/Globulin Ratio (1.1-1.8) Amylase (35-125) U/L Lipase (23-300) U/L Mycoplasma pneumon IgG 1.96 H (<=0.90) Mycoplasma pneumon IgM 101 (<770) U/mL Blood Type Antibody Screen BBK History Checked Laboratory Results - last 24 hr 09/08/17 09/12/17 09/12/17 19:55 06:00 06:00 WBC 7.9 RBC 2.84 L Hgb 8.7 L Hct 27.8 L MCV 97.9 MCH 30.6 MCHC 31.3 RDW 15.2 H Plt Count 24 L* MPV Gran % 50.6 Lymph % (Auto) 10.7 L [place] % (Auto) 37.1 H Eos % (Auto) 0.6 L Baso % (Auto) 1.0 Gran # 3.99 Lymph # (Auto) 0.8 L [place] # (Auto) 2.9 H Eos # (Auto) 0.1 Baso # (Auto) 0.08 PT INR APTT pCO2 pO2 HCO3 ABG pH ABG Total CO2 ABG O2 Saturation ABG O2 Content ABG Base Excess ABG Hemoglobin ABG Carboxyhemoglobin POC ABG HHb (Measured) ABG Methemoglobin ABG O2 Capacity Hgb O2 Saturation FiO2 Sodium Potassium Chloride Carbon Dioxide Anion Gap BUN Creatinine Est GFR ( Amer) Est GFR (Non-Af Amer) POC Glucose (mg/dL) Random Glucose Calcium Phosphorus Magnesium Total Bilirubin AST ALT Alkaline Phosphatase Total Protein Albumin Globulin Albumin/Globulin Ratio Amylase 33 L Lipase 137 Mycoplasma pneumon IgG 1.96 H Mycoplasma pneumon IgM 101 Blood Type Antibody Screen BBK History Checked 09/12/17 09/12/17 09/12/17 06:00 06:00 07:25 WBC RBC Hgb Hct MCV MCH MCHC RDW Plt Count MPV Gran % Lymph % (Auto) [place] % (Auto) Eos % (Auto) Baso % (Auto) Gran # Lymph # (Auto) [place] # (Auto) Eos # (Auto) Baso # (Auto) PT 13.4 H INR 1.16 H APTT 34.1 pCO2 pO2 HCO3 ABG pH ABG Total CO2 ABG O2 Saturation ABG O2 Content ABG Base Excess ABG Hemoglobin ABG Carboxyhemoglobin POC ABG HHb (Measured) ABG Methemoglobin ABG O2 Capacity Hgb O2 Saturation FiO2 Sodium 143 Potassium 3.7 Chloride 107 Carbon Dioxide 21 Anion Gap 18 BUN 55 H Creatinine 5.3 H Est GFR ( Amer) 14 Est GFR (Non-Af Amer) 12 POC Glucose (mg/dL) 192 H Random Glucose 198 H Calcium 8.1 L Phosphorus Magnesium Total Bilirubin 2.5 H AST 250 H D ALT 133 H Alkaline Phosphatase 83 Total Protein 5.5 L Albumin 2.7 L Globulin 2.8 Albumin/Globulin Ratio 1.0 L Amylase Lipase Mycoplasma pneumon IgG Mycoplasma pneumon IgM Blood Type Antibody Screen BBK History Checked 09/12/17 09/12/17 09/12/17 08:05 09:00 10:30 WBC RBC Hgb Hct MCV MCH MCHC RDW Plt Count MPV Gran % Lymph % (Auto) [place] % (Auto) Eos % (Auto) Baso % (Auto) Gran # Lymph # (Auto) [place] # (Auto) Eos # (Auto) Baso # (Auto) PT INR APTT pCO2 47 H pO2 96.0 HCO3 21.6 ABG pH 7.27 L ABG Total CO2 23.0 ABG O2 Saturation 99.0 H ABG O2 Content 12.4 L ABG Base Excess -5.1 L ABG Hemoglobin 9.0 L ABG Carboxyhemoglobin 1.8 H POC ABG HHb (Measured) 1.0 ABG Methemoglobin 0.8 ABG O2 Capacity 12.5 L Hgb O2 Saturation 96.4 FiO2 60.0 Sodium Potassium Chloride Carbon Dioxide Anion Gap BUN Creatinine Est GFR ( Amer) Est GFR (Non-Af Amer) POC Glucose (mg/dL) Random Glucose Calcium Phosphorus 4.5 Magnesium 1.6 L Total Bilirubin AST ALT Alkaline Phosphatase Total Protein Albumin Globulin Albumin/Globulin Ratio Amylase Lipase Mycoplasma pneumon IgG Mycoplasma pneumon IgM Blood Type O POSITIVE Antibody Screen Negative BBK History Checked Patient has bt 09/12/17 09/12/17 09/12/17 11:50 18:00 18:07 WBC RBC Hgb Hct MCV MCH MCHC RDW Plt Count MPV Gran % Lymph % (Auto) [place] % (Auto) Eos % (Auto) Baso % (Auto) Gran # Lymph # (Auto) [place] # (Auto) Eos # (Auto) Baso # (Auto) PT INR APTT pCO2 pO2 HCO3 ABG pH ABG Total CO2 ABG O2 Saturation ABG O2 Content ABG Base Excess ABG Hemoglobin ABG Carboxyhemoglobin POC ABG HHb (Measured) ABG Methemoglobin ABG O2 Capacity Hgb O2 Saturation FiO2 Sodium Potassium Chloride Carbon Dioxide Anion Gap BUN Creatinine Est GFR ( Amer) Est GFR (Non-Af Amer) POC Glucose (mg/dL) 131 H 146 H 150 H Random Glucose Calcium Phosphorus Magnesium Total Bilirubin AST ALT Alkaline Phosphatase Total Protein Albumin Globulin Albumin/Globulin Ratio Amylase Lipase Mycoplasma pneumon IgG Mycoplasma pneumon IgM Blood Type Antibody Screen BBK History Checked 09/12/17 09/13/17 23:49 05:59 WBC 12.2 H D RBC 2.99 L Hgb 9.3 L Hct 28.9 L MCV 96.7 MCH 31.1 MCHC 32.2 RDW 15.8 H Plt Count 53 L MPV 10.6 Gran % Lymph % (Auto) [place] % (Auto) 14.1 H Eos % (Auto) 0.7 L Baso % (Auto) 3.7 H Gran # Lymph # (Auto) [place] # (Auto) 1.7 H Eos # (Auto) 0.1 Baso # (Auto) 0.45 PT INR APTT pCO2 pO2 HCO3 ABG pH ABG Total CO2 ABG O2 Saturation ABG O2 Content ABG Base Excess ABG Hemoglobin ABG Carboxyhemoglobin POC ABG HHb (Measured) ABG Methemoglobin ABG O2 Capacity Hgb O2 Saturation FiO2 Sodium Potassium Chloride Carbon Dioxide Anion Gap BUN Creatinine Est GFR ( Amer) Est GFR (Non-Af Amer) POC Glucose (mg/dL) 153 H Random Glucose Calcium Phosphorus Magnesium Total Bilirubin AST ALT Alkaline Phosphatase Total Protein Albumin Globulin Albumin/Globulin Ratio Amylase Lipase Mycoplasma pneumon IgG Mycoplasma pneumon IgM Blood Type Antibody Screen BBK History Checked Fingerstick Blood Sugar Results: 192
[2017-09-13 07:19] LABS: ALBUMIN 2.9 g/dL (3.0-4.8); CALCIUM 8.9 mg/dL (8.4-10.5)
[2017-09-13] MEDS: Budesonide 0.5 mg/2 ml Inhal Susp UD IH SCH ×2 (07:23→20:00)
[2017-09-13 07:40] LABS: ARTERIAL BLOOD GAS HCO3 17.9 mmol/L (21-28); ARTERIAL BLOOD GAS HEMOGLOBIN 9.2 g/dL (11.7-17.4); ARTERIAL BLOOD GAS O2 CAPACITY 12.7 mL/dl (16-24); ARTERIAL BLOOD GAS O2 CONTENT 12.4 ML/dl (15-23); ARTERIAL BLOOD GAS O2 SAT 97.9 % (95-98); ARTERIAL BLOOD GAS PCO2 39 mm/Hg (35-45); ARTERIAL BLOOD GAS PH 7.27 (7.35-7.45); ARTERIAL BLOOD GAS TCO2 19.1 mmol.L (22-28)
[2017-09-13 08:23] LABS: MAGNESIUM 1.7 mg/dL (1.7-2.2)
--- NOTE | 2017-09-13 08:24 | RAD ---
HISTORY: intubated on vent COMPARISON: 09/12/2017 FINDINGS: LUNGS: Evaluation limited due to oblique positioning. Extensive opacity in the left lung, diffuse, representing interval change. Right basilar opacity on prior examination has resolved. PLEURA: No significant pleural effusion identified, no pneumothorax apparent. CARDIOVASCULAR: Normal heart size. ET tube, NG tube and right IJ central venous catheter unchanged. OSSEOUS STRUCTURES: No significant abnormalities. VISUALIZED UPPER ABDOMEN: Normal. OTHER FINDINGS: None. IMPRESSION: Resolved right basilar opacity. New diffuse left-sided pulmonary opacity. Limited evaluation due to oblique positioning. Lines and tubes unchanged.
[2017-09-13] MEDS: Multi Vitamins 15 mL UD Oral Solution PO SCH (09:35)
[2017-09-13] MEDS ORDERED: Azithromycin 250 MG in Sodium Chloride 0.9% 250 ML IVPB SCH (10:00)
--- NOTE | 2017-09-13 10:45 | CP.PCM.PN ---
Subjective - Date & Time of Evaluation Date of Evaluation: 09/13/17 Time of Evaluation: 10:10 - Subjective Subjective: Undergoing dialysis, no fevers overnight, not in distress. Objective - Vital Signs/Intake and Output Vital Signs (last 24 hours): Temp Pulse Resp BP Pulse Ox 97.7 F 94 H 27 H 140/94 H 96 09/13/17 00:00 09/13/17 06:15 09/13/17 06:15 09/13/17 06:00 09/13/17 06:15 Intake and Output: 09/12/17 09/13/17 18:59 06:59 Intake Total 662 303 Output Total 1220 110 Balance -558 193 - Medications Medications: Current Medications Artificial Tears (Refresh Opth Soln) 0.3 ml OU Q12 [facility] Last Admin: 09/12/17 23:00 Dose: 0.3 ml Budesonide (Pulmicort Respules) 0.5 mg IH [id number] [facility] Last Admin: 09/12/17 20:05 Dose: 0.5 mg Fentanyl (Fentanyl) 50 mcg IVP Q4H PRN PRN Reason: Agitation Folic Acid (Folic Acid) 1 mg IVP DAILY [facility] Last Admin: 09/12/17 11:12 Dose: 1 mg Levetiracetam 1,000 mg/ Sodium (Chloride) 110 mls @ 460 mls/hr IV Q12 [facility] Last Admin: 09/12/17 22:41 Dose: 460 mls/hr Propofol (Diprivan) 1,000 mg in 100 mls @ 2.062 mls/hr IV .Q24H PRN; Protocol; 5 MCG/KG/MIN PRN Reason: TITRATE PER MD ORDER Last Titration: 09/13/17 05:33 Dose: 40 mcg/kg/min, 16.493 mls/hr Insulin Human Regular (Humulin R Med) 0 units SC Q6 [facility] PRN Reason: Protocol Last Admin: 09/13/17 00:13 Dose: Not Given Levalbuterol HCl (Xopenex) 0.63 mg IH [id number] [facility] Last Admin: 09/13/17 03:16 Dose: 0.63 mg Lorazepam (Ativan) 2 mg IVP Q3H PRN; Protocol PRN Reason: Agitation Last Admin: 09/12/17 09:18 Dose: 2 mg Multivitamins/Vitamin C (Multi-Delyn Liquid) 15 ml PO 0800 [facility] Last Admin: 09/12/17 08:10 Dose: 15 ml Pantoprazole Sodium (Protonix Inj) 40 mg IVP Q12 [facility] Last Admin: 09/12/17 22:43 Dose: 40 mg Thiamine HCl (Vitamin B1 Inj) 100 mg IV DAILY [facility] Last Admin: 09/12/17 10:09 Dose: 100 mg Vancomycin HCl (Vancocin 25 Mg/Ml (Oral Use)) 500 mg PO Q6 [facility] PRN Reason: Protocol Last Admin: 09/13/17 06:36 Dose: 500 mg - Labs Labs: 09/13/17 05:59 09/12/17 06:00 PT 13.4 SECONDS (9.4-12.5) H 09/12/17 06:00 INR 1.16 (0.93-1.08) H 09/12/17 06:00 APTT 34.1 Seconds (25.1-36.5) 09/12/17 06:00 - Constitutional Appears: Chronically Ill - Head Exam Head Exam: NORMAL INSPECTION - Respiratory Exam Respiratory Exam: Decreased Breath Sounds - Cardiovascular Exam Cardiovascular Exam: +S1, +S2 - GI/Abdominal Exam GI & Abdominal Exam: Soft. absent: Tenderness Assessment and Plan - Assessment and Plan (Free Text) Plan: Assessment Systemic Inflammatory Reponse Syndrome, with VDRF consider severe sepsis due to C. diff. associated diarrhea on top of acute alcoholic pancreatitis Thrombocytopenia with alcoholic liver disease DM HTN Plan blood and urine cx are negative, CXR is more compatible with pulmonary edema than pneumonia, PCT is elevated but patient has renal failure continue PO Vancomycin day 4 for 10-14 days overall prognosis is poor
[2017-09-13] MEDS: levETIRAcetam 1,000 MG in Sodium Chloride 0.9% 100 ML IV SCH ×2 (10:48→22:50)
[2017-09-13] MEDS: Lubricant Eye Drops UD OU SCH ×2 (10:55→21:48)
[2017-09-13] MEDS: Thiamine 100 mg/ml Inj IV SCH (11:13)
--- NOTE | 2017-09-13 11:42 | CP.PCM.PN ---
Subjective - Date & Time of Evaluation Date of Evaluation: 09/13/17 Time of Evaluation: 11:39 - Subjective Subjective: Mr. Aguero was seen and examined at the bedside in ICU. He remains on mechanical ventilator with GCS 4T. He easily gets agitated with tactile stimuli but not breathing above the ventilator, on bilateral wrist restraint for patient safety. At present, he is receiving hemodialysis via a temporary dialysis catheter. His bilateral hand is positive for edema with intact blister on. There was no untoward events overnight. Objective - Vital Signs/Intake and Output Vital Signs (last 24 hours): Temp Pulse Resp BP Pulse Ox 97.7 F 91 H 22 148/106 H 97 09/13/17 00:00 09/13/17 06:59 09/13/17 07:49 09/13/17 07:00 09/13/17 07:49 Intake and Output: 09/13/17 09/13/17 06:59 18:59 Intake Total 348 Output Total 110 Balance 238 - Medications Medications: Current Medications Artificial Tears (Refresh Opth Soln) 0.3 ml OU Q12 [facility] Last Admin: 09/13/17 10:55 Dose: 0.3 ml Budesonide (Pulmicort Respules) 0.5 mg IH [id number] [facility] Last Admin: 09/13/17 07:23 Dose: 0.5 mg Folic Acid (Folic Acid) 1 mg IVP DAILY [facility] Last Admin: 09/13/17 11:12 Dose: 1 mg Levetiracetam 1,000 mg/ Sodium (Chloride) 110 mls @ 460 mls/hr IV Q12 [facility] Last Admin: 09/13/17 10:48 Dose: 460 mls/hr Propofol (Diprivan) 1,000 mg in 100 mls @ 2.062 mls/hr IV .Q24H PRN; Protocol; 5 MCG/KG/MIN PRN Reason: TITRATE PER MD ORDER Last Admin: 09/13/17 06:47 Dose: 40 mcg/kg/min, 16.493 mls/hr Insulin Human Regular (Humulin R Med) 0 units SC Q6 [facility] PRN Reason: Protocol Last Admin: 09/13/17 06:59 Dose: 1 units Levalbuterol HCl (Xopenex) 0.63 mg IH [id number] [facility] Last Admin: 09/13/17 07:23 Dose: 0.63 mg Lorazepam (Ativan) 2 mg IVP Q3H PRN; Protocol PRN Reason: Agitation Last Admin: 09/12/17 09:18 Dose: 2 mg Multivitamins/Vitamin C (Multi-Delyn Liquid) 15 ml PO 0800 [facility] Last Admin: 09/13/17 09:35 Dose: 15 ml Pantoprazole Sodium (Protonix Inj) 40 mg IVP Q12 [facility] Last Admin: 09/13/17 10:53 Dose: 40 mg Thiamine HCl (Vitamin B1 Inj) 100 mg IV DAILY [facility] Last Admin: 09/13/17 11:13 Dose: 100 mg Vancomycin HCl (Vancocin 25 Mg/Ml (Oral Use)) 500 mg PO Q6 [facility] PRN Reason: Protocol Last Admin: 09/13/17 06:36 Dose: 500 mg - Labs Labs: 09/13/17 05:59 09/13/17 05:59 PT 13.4 SECONDS (9.4-12.5) H 09/12/17 06:00 INR 1.16 (0.93-1.08) H 09/12/17 06:00 APTT 34.1 Seconds (25.1-36.5) 09/12/17 06:00 - Constitutional Appears: No Acute Distress - Head Exam Head Exam: NORMAL INSPECTION - Eye Exam Additional comments: very sluggish - Neurological Exam Neuro motor strength exam: Left Upper Extremity: 0, Right Upper Extremity: 0, Left Lower Extremity: 0, Right Lower Extremity: 0 Additional comments: GCS-4T Assessment and Plan (1) Seizure Assessment & Plan: Case discussed with Dr. Britt, continue all current medical regimen. Pending EEG result. Status: Acute
[2017-09-13 12:24] LABS: HEPATITIS B SURFACE AG Negative (NEGATIVE)
[2017-09-13 12:29] LABS: HEPATITIS A IGM NEGATIVE (NEGATIVE); HEPATITIS B CORE AB NEGATIVE (NEGATIVE)
[2017-09-13 12:41] LABS: HEPATITIS C ANTIBODY NEGATIVE (NEGATIVE)
--- NOTE | 2017-09-13 13:48 | CP.PCM.PN ---
<Jay Harden - Last Filed: 09/13/17 15:15> Subjective - Date & Time of Evaluation Date of Evaluation: 09/13/17 Time of Evaluation: 11:46 - Subjective Subjective: Jay Harden PGY1 IM Progress Note Patient was seen and examined at bedside in ICU. Patient is more arousable today off sedation, but is still not awake or alert. Per nurse, there were no acute overnight events. Patient is off pressors. There is loose brown stools in rectal tube bag and lazo in. ROS unobtainable. Objective - Vital Signs/Intake and Output Vital Signs (last 24 hours): Temp Pulse Resp BP Pulse Ox 97.7 F 91 H 27 H 148/106 H 100 09/13/17 00:00 09/13/17 06:59 09/13/17 13:23 09/13/17 07:00 09/13/17 13:23 Intake and Output: 09/13/17 09/13/17 06:59 18:59 Intake Total 348 Output Total 110 Balance 238 - Medications Medications: Current Medications Artificial Tears (Refresh Opth Soln) 0.3 ml OU Q12 [facility] OF [facility] Last Admin: 09/13/17 10:55 Dose: 0.3 ml Budesonide (Pulmicort Respules) 0.5 mg IH [id number] [facility] Last Admin: 09/13/17 07:23 Dose: 0.5 mg Folic Acid (Folic Acid) 1 mg IVP DAILY [facility] Last Admin: 09/13/17 11:12 Dose: 1 mg Levetiracetam 1,000 mg/ Sodium (Chloride) 110 mls @ 460 mls/hr IV Q12 [facility] Last Admin: 09/13/17 10:48 Dose: 460 mls/hr Propofol (Diprivan) 1,000 mg in 100 mls @ 2.062 mls/hr IV .Q24H PRN; Protocol; 5 MCG/KG/MIN PRN Reason: TITRATE PER MD ORDER Last Admin: 09/13/17 06:47 Dose: 40 mcg/kg/min, 16.493 mls/hr Insulin Human Regular (Humulin R Med) 0 units SC Q6 [facility] PRN Reason: Protocol Last Admin: 09/13/17 12:30 Dose: Not Given Levalbuterol HCl (Xopenex) 0.63 mg IH [id number] [facility] Last Admin: 09/13/17 13:17 Dose: 0.63 mg Lorazepam (Ativan) 2 mg IVP Q3H PRN; Protocol PRN Reason: Agitation Last Admin: 09/12/17 09:18 Dose: 2 mg Multivitamins/Vitamin C (Multi-Delyn Liquid) 15 ml PO 0800 [facility] Last Admin: 09/13/17 09:35 Dose: 15 ml Pantoprazole Sodium (Protonix Inj) 40 mg IVP Q12 [facility] Last Admin: 09/13/17 10:53 Dose: 40 mg Thiamine HCl (Vitamin B1 Inj) 100 mg IV DAILY [facility] Last Admin: 09/13/17 11:13 Dose: 100 mg Vancomycin HCl (Vancocin 25 Mg/Ml (Oral Use)) 500 mg PO Q6 [facility] OF [facility] PRN Reason: Protocol Last Admin: 09/13/17 06:36 Dose: 500 mg - Labs Labs: 09/13/17 05:59 09/13/17 05:59 PT 13.4 SECONDS (9.4-12.5) H 09/12/17 06:00 INR 1.16 (0.93-1.08) H 09/12/17 06:00 APTT 34.1 Seconds (25.1-36.5) 09/12/17 06:00 - Additional Findings Additional findings: - Constitutional Appears: No Acute Distress - Head Exam Head Exam: ATRAUMATIC, NORMAL INSPECTION - Eye Exam Eye Exam: PERRL (sluggish), Scleral icterus - ENT Exam Additional comments: intubated - Neck Exam Neck Exam: Normal Inspection Additional comments: R IJ in place - Respiratory Exam Respiratory Exam: absent: Rales, Rhonchi, Wheezes Additional comments: intubated, on vent - Cardiovascular Exam Cardiovascular Exam: Tachycardia, +S1, +S2 - GI/Abdominal Exam GI & Abdominal Exam: Distended. absent: Tenderness Additional comments: rectal tube in place, draining brown loose stools lazo catheter in place - Extremities Exam Extremities Exam: Normal Inspection Additional comments: swollen testicle and penis L hand swollen bullous - Back Exam Back Exam: NORMAL INSPECTION - Neurological Exam Neurological Exam: Altered (GCS 4t) - Psychiatric Exam Additional comments: unable to assess - Skin Skin Exam: Normal Color Assessment and Plan - Assessment and Plan (Free Text) Assessment: 47yo M with a PMH of DM2, HTN and alcohol use who presented with URI symptoms such as cough, shortness of breath, palpitations. Last alcoholic drink was night prior to admission. Patient was admitted for septic shock (with lactate of 7.7 on presentation), high anion gap metabolic acidosis, acute pancreatitis 2 /2 ETOH vs triglycerides, IRWIN vs CKD, elevated LFTs likely 2/2 ETOH, elevated BNP, hyponatremia, and hypokalemia. s/p cardiac arrest and ROSC. Upon ROSC, patient vomited and likely aspirated, but was turned to the side and suctioned. Intubated and on vent with sedation in ICU. Patient intially required pressors to maintain BP but is no longer needing them. Remains on Keppra for seizure ppx. IRWIN is worsened, will likely require temporary dialysis catheter. Liver enzymes are improving. Lipase trending down so pancreatitis improving. Plan: 1. Septic shock - continue ICU monitoring due to unstable vitals and altered mental state - Lipase and Amylase were elevated indicating pacreatitis 2/2 ETOH vs TG (>1000) , trending down - cont tube foods per GI - XR abd/chest today to monitor +fluid balance - CT Findings are concerning for acute pancreatitis w/o ductal dilatation, calcifications or pseudocyst. alcoholic liver steatosis - off pressors - Maintain normothermia - tylenol supp PRN - blood cultures showed no growth - urine cultures showed no growth - stool cultures indicating cdiff +Ag/-Toxin; pt on contact precautions and PO Vanc - nose/trach aspirate culture pending - Monitor vitals - Maintain MAP > 65 - ID consulted for management of septic shock, recs appreciated - GI consulted for alcoholic pancreatitis and +stool occult blood, recs appreciated - Surgery consulted for abdominal distention, recs appreciated - Palliative care consulted for advanced directives 2. Anion gap metabolic acidosis likely 2/2 lactic acidosis and ETOH - s/p cardiac arrest 09/08 - CT Head showed no acute intracranial abnormalities and mild chronic microangiopathic changes, w/ moderate global parencyhmal volume loss - patient was intubated to protect airway due to hypoxemia and vomiting to reduce risk of aspiration - currently on Fentanyl PRN - ativan prn agitation added - Maintain SaO2 > 90% - TSH and A1C WNL - Cardiology consulted, recs appreciated 3. IRWIN vs CKD a/w Hypophosphatemia - temp dialysis catheter placed - 2nd dialysis session today - FENa 3.2 indicating ATN - given septic shock, likely component of pre-renal and intrinsic ischemic ATN ( coarse granular casts seen on UA) - avoid nephrotoxins - Nephrology consulted, recs appreciated 4. ETOH withdrawal seizures - cont Keppra for seizure ppx - pending EEG read - ETOH level was elevated on admission, patient stated last drink was 09/07 PM - cont IV Thiamine - UDS negative other than ETOH level - CT Head was unremarkable - Neurology consulted, recs appreciated 5. 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 Transaminitis likely w/ underlying liver disease, improving - likely 2/2 shock liver and chronic ETOH use since INR is elevated - hepatitis panel negative - HIV pending - continue to monitor 7. Poor prognosis - to meet with to establish understanding of condition - Palliative care consulted Patient was seen, examined and discussed with attending, Dr. Frances Harden PGY1 Pager # [phone] <Jeanne Daniels B - Last Filed: 09/14/17 15:47> Objective - Vital Signs/Intake and Output Vital Signs (last 24 hours): Temp Pulse Resp BP Pulse Ox 98.5 F 96 H 26 H 178/97 H 100 09/14/17 04:00 09/14/17 14:15 09/14/17 14:11 09/14/17 14:00 09/14/17 14:15 Intake and Output: 09/14/17 09/14/17 06:59 18:59 Intake Total 160 Output Total 300 Balance -140 - Medications Medications: Current Medications Artificial Tears (Refresh Opth Soln) 0.3 ml OU Q12 PRN PRN Reason: Dry eyes Budesonide (Pulmicort Respules) 0.5 mg IH [id number] [facility] Last Admin: 09/14/17 07:48 Dose: 0.5 mg Folic Acid (Folic Acid) 1 mg NG DAILY [facility] Levetiracetam 1,000 mg/ Sodium (Chloride) 110 mls @ 460 mls/hr IV Q12 [facility] Last Admin: 09/14/17 10:16 Dose: 460 mls/hr Propofol (Diprivan) 1,000 mg in 100 mls @ 2.062 mls/hr IV .Q24H PRN; Protocol; 5 MCG/KG/MIN PRN Reason: TITRATE PER MD ORDER Last Admin: 09/13/17 06:47 Dose: 40 mcg/kg/min, 16.493 mls/hr Metronidazole (Flagyl) 500 mg in 100 mls @ 100 mls/hr IVPB Q8 [facility] PRN Reason: Protocol Last Admin: 09/14/17 14:42 Dose: 100 mls/hr Insulin Human Regular (Humulin R Med) 0 units SC Q6 [facility] PRN Reason: Protocol Last Admin: 09/14/17 14:40 Dose: Not Given Levalbuterol HCl (Xopenex) 0.63 mg IH [id number] [facility] Last Admin: 09/14/17 13:32 Dose: 0.63 mg Lorazepam (Ativan) 2 mg IVP Q3H PRN; Protocol PRN Reason: Agitation Last Admin: 09/14/17 10:15 Dose: 2 mg Multivitamins/Vitamin C (Multi-Delyn Liquid) 15 ml PO 0800 [facility] Last Admin: 09/14/17 10:11 Dose: 15 ml Pantoprazole Sodium (Protonix Inj) 40 mg IVP Q12 [facility] Last Admin: 09/14/17 10:11 Dose: 40 mg Thiamine HCl (Vitamin B1 Inj) 100 mg IV DAILY [facility] Last Admin: 09/14/17 10:12 Dose: 100 mg Tobramycin/Dexamethasone (Tobradex Opht Susp) 0 ml OU QID [facility] Vancomycin HCl (Vancocin 25 Mg/Ml (Oral Use)) 500 mg PO Q6 [facility] PRN Reason: Protocol Last Admin: 09/14/17 11:59 Dose: 500 mg - Labs Labs: 09/14/17 05:10 09/14/17 05:10 PT 13.4 SECONDS (9.4-12.5) H 09/12/17 06:00 INR 1.16 (0.93-1.08) H 09/12/17 06:00 APTT 34.1 Seconds (25.1-36.5) 09/12/17 06:00 Attending/Attestation - Attestation I have personally seen and examined this patient.: Yes I have fully participated in the care of the patient.: Yes I have reviewed all pertinent clinical information, including history, physical exam and plan: Yes Notes (Text): I have seen and examined the patient at bedside with the resident. Agree with the above note with the following additions/ exceptions: Briefly this is 47 year male with history of alcohol abuse, DM-2 who came initially for abdominal pain and dyspnea. He was found to be severely acidotic and had elevated lactic acid level. He was diagnosed with pancreatitis. Currently intubated. He is off sedation and pressors. He is responsive to painful stimuli however he is not able to following commands. CT head showed volume loss. CXR revealed multifocal pulmonary infiltrates more suggestive of volume overload. Procal high probably due to renal failure. Blood and urine culture negative. He continues to have diarrhea. Rectal tube is in. Continue PO vancomycin for Cdiff colitis. ID on board. He has acute kidney injury due to SIRS vs ATN. He remains oliguric. He is s/p Shiley insertion and undergoing hemodialysis. Repeat lipase level normalized. Abdomen ultrasound revealed no evidence of pancreatitis.. Echo revealed normal EF. Continue seizure precautions, keppra, thiamine, folate and MVI. EEG result pending. Hyponatremia and hypokalemia has resolved. Elevated LFTs probably due to worsening liver failure due to shock liver/alcohol abuse. Will closely monitor Is Os. He has anemia and thrombocytopenia which can be due to alcohol induced BM suppression vs sepsis induced coagulopathy. Overall prognosis is poor. Palliative care consult pending. Dr Jeanne Daniels
--- NOTE | 2017-09-13 14:02 | PN ---
DATE: ADDENDUM Gastrointestinal: Patient has high-residual and enteral feeds were stopped. We will continue to observe him. Endocrine: We will maintain blood glucose within 140 to 180 range according to NICE-SUGAR trial. Continue to aim at euvolemia, euglycemia, normothermia and oxygen saturation more than 90%.. DVT and GI prophylaxis. Hasmukh Miller MD [facility]
--- NOTE | 2017-09-13 14:14 | CP.PCM.PN ---
Subjective - Date & Time of Evaluation Date of Evaluation: 09/13/17 Time of Evaluation: 13:00 - Subjective Subjective: Moving extremities,responds to noxious stimuli. Objective - Vital Signs/Intake and Output Vital Signs (last 24 hours): Temp Pulse Resp BP Pulse Ox 97.7 F 91 H 27 H 148/106 H 100 09/13/17 00:00 09/13/17 06:59 09/13/17 13:23 09/13/17 07:00 09/13/17 13:23 Intake and Output: 09/13/17 09/13/17 06:59 18:59 Intake Total 348 Output Total 110 Balance 238 - Medications Medications: Current Medications Artificial Tears (Refresh Opth Soln) 0.3 ml OU Q12 [facility] Last Admin: 09/13/17 10:55 Dose: 0.3 ml Budesonide (Pulmicort Respules) 0.5 mg IH [id number] [facility] Last Admin: 09/13/17 07:23 Dose: 0.5 mg Folic Acid (Folic Acid) 1 mg IVP DAILY [facility] Last Admin: 09/13/17 11:12 Dose: 1 mg Levetiracetam 1,000 mg/ Sodium (Chloride) 110 mls @ 460 mls/hr IV Q12 [facility] Last Admin: 09/13/17 10:48 Dose: 460 mls/hr Propofol (Diprivan) 1,000 mg in 100 mls @ 2.062 mls/hr IV .Q24H PRN; Protocol; 5 MCG/KG/MIN PRN Reason: TITRATE PER MD ORDER Last Admin: 09/13/17 06:47 Dose: 40 mcg/kg/min, 16.493 mls/hr Insulin Human Regular (Humulin R Med) 0 units SC Q6 [facility] PRN Reason: Protocol Last Admin: 09/13/17 12:30 Dose: Not Given Levalbuterol HCl (Xopenex) 0.63 mg IH [id number] [facility] Last Admin: 09/13/17 13:17 Dose: 0.63 mg Lorazepam (Ativan) 2 mg IVP Q3H PRN; Protocol PRN Reason: Agitation Last Admin: 09/12/17 09:18 Dose: 2 mg Multivitamins/Vitamin C (Multi-Delyn Liquid) 15 ml PO 0800 [facility] Last Admin: 09/13/17 09:35 Dose: 15 ml Pantoprazole Sodium (Protonix Inj) 40 mg IVP Q12 [facility] Last Admin: 09/13/17 10:53 Dose: 40 mg Thiamine HCl (Vitamin B1 Inj) 100 mg IV DAILY [facility] Last Admin: 09/13/17 11:13 Dose: 100 mg Vancomycin HCl (Vancocin 25 Mg/Ml (Oral Use)) 500 mg PO Q6 [facility] PRN Reason: Protocol Last Admin: 09/13/17 13:21 Dose: 500 mg - Labs Labs: 09/13/17 05:59 09/13/17 05:59 PT 13.4 SECONDS (9.4-12.5) H 09/12/17 06:00 INR 1.16 (0.93-1.08) H 09/12/17 06:00 APTT 34.1 Seconds (25.1-36.5) 09/12/17 06:00 - Constitutional Appears: Chronically Ill - Eye Exam Eye Exam: Normal appearance, PERRL - ENT Exam ENT Exam: Mucous Membranes Moist - Respiratory Exam Respiratory Exam: Decreased Breath Sounds - Cardiovascular Exam Cardiovascular Exam: Tachycardia, +S1, +S2 - GI/Abdominal Exam GI & Abdominal Exam: Distended, Soft, Normal Bowel Sounds - Extremities Exam Extremities Exam: Normal Capillary Refill Additional comments: generalized edema of all enormities - Neurological Exam Neurological Exam: Altered - Skin Skin Exam: Dry, Warm Assessment and Plan - Assessment and Plan (Free Text) Assessment: 47 year old make with history of HTN,DM, alcoholism who is admitted s/p cardiopulmonary arrest, respiratory failure, bilateral infiltrates, IRWIN, transaminitis Intubated, vent dependent. GCS 4. Receiving dialysis. TIM T Jannette and I met with patient's . Reviewed patients medical situation and guarded prognosis with . states she understands the severity of her husbands situation. Goals of care discussed at length. Option for withdrawal of life prolonging interventions vs LTAC/PEG/Trach explored. Benefits and burdens of each explained. Questions answered. does not want to withdraw treatment. is agreeable to LTAC. understands that patient will likely need PEG/Trach and possibly alf dialysis. is concerned / anxious at having to share this information with her children and husbands family. Offered to assist her in family discussion. Psychosocial support provided. Time spent in goals of care discussion with , 30 minutes Plan: Palliative support in establishing goals of care
--- NOTE | 2017-09-13 14:16 | CP.PCM.PN ---
Subjective - Date & Time of Evaluation Date of Evaluation: 09/13/17 Time of Evaluation: 14:14 - Subjective Subjective: Follow up Nephrology Consultation: Assessment: critical Acute Kidney Injury (N17.9) likely due to pre-renal state, SIRS, Acute tubular necrosis Hyponatermia, hypokalemia DM, HTN, chronic alcoholism, hepatic dysfunction acute pancreatitis HAGMA with lactic acidosis + alcohol ketoacidosis and starvation ketoacidosis Thrombocytopenia Hypomagnesemia, hypophosphatemia s/p cardiac arrest, seizure ARDS Plan considering 10 L + fluid balance, ARDS pattern and oligoanuria, no response to lasix, high vent requirements renal replacement therapy initiation was indicated. d/w dialysis 2nd session today UF goal 2 Kgs and next HD tomorrow UF goal 2.5 Kgs Patient not on ACEI/ARB due to IRWIN. maintain hemodynamics stable Monitor Input/Output, daily weights and renal function with basic metabolic panel CT abdomen showed acute pancreatitis and fatty liver continue with folic acid MVI, thiamine supplements supplement electrolytes as needed hold metformin Dose meds/antibiotics for reduced GFR. Avoid fleets enema/magnesium based laxatives. Avoid nephrotoxins/NSAIDs/ iodinated contrast (unless needed emergently) Glycemic control Further work up/management as per primary team overall prognosis poor Thanks for allowing me to participate in care of your patient. Will follow patient with you. Please call if any Qs/. d/w team Dr Finn Ng Office: [phone] Chief Complaint; unable HPI: Pt is a 47 M with hx of diabetes Mellitus hypertension and chronic daily Etoh abuse presented with SOB, pain abdomen and not feeling well renal consult for IRWIN and acidosis pt unable to provide any hx no hx noted for any spurious or toxic alcohol ingestion ROS: unable Physical Examination: General Appearance: ill appearing. on 50% FiO2 and PEEP 10, O2 sat 98% Vitals reviewed and noted as below Head; Atraumatic, normocephalic ENT: intubated Neck; supple no lymphadenopathy, no thyromegaly or bruit Lungs: Increased respiratory rate/effort. Breath sounds bilateral with basal rales Heart: Increased rate. s1s2 normal. No rub or gallop. Extremities: no edema. No varicose veins Neurological: Patient is sedated Skin: Warm and dry. Normal turgor. No rash. Palpitation: Normal elasticity for age Abdomen: Abdomen is soft. Bowel sounds decreased. There is mild abdominal tenderness, no guarding/rigidity no organomegaly. distended. has rectal tube Psych: unable MSK: no joint tenderness or swelling. has clubbing : kidney or bladder not palpable Labs/imaging reviewed. Past medical history, past surgical history, family history, social history, allergy reviewed and noted as below Family hx: no hx of CKD. Rest non-contributory UA no crystals but has ketone and protein Objective - Vital Signs/Intake and Output Vital Signs (last 24 hours): Temp Pulse Resp BP Pulse Ox 97.7 F 91 H 27 H 148/106 H 100 09/13/17 00:00 09/13/17 06:59 09/13/17 13:23 09/13/17 07:00 09/13/17 13:23 Intake and Output: 09/13/17 09/13/17 06:59 18:59 Intake Total 348 Output Total 110 Balance 238 - Medications Medications: Current Medications Artificial Tears (Refresh Opth Soln) 0.3 ml OU Q12 [facility] Last Admin: 09/13/17 10:55 Dose: 0.3 ml Budesonide (Pulmicort Respules) 0.5 mg IH [id number] [facility] Last Admin: 09/13/17 07:23 Dose: 0.5 mg Folic Acid (Folic Acid) 1 mg IVP DAILY [facility] Last Admin: 09/13/17 11:12 Dose: 1 mg Levetiracetam 1,000 mg/ Sodium (Chloride) 110 mls @ 460 mls/hr IV Q12 [facility] Last Admin: 09/13/17 10:48 Dose: 460 mls/hr Propofol (Diprivan) 1,000 mg in 100 mls @ 2.062 mls/hr IV .Q24H PRN; Protocol; 5 MCG/KG/MIN PRN Reason: TITRATE PER MD ORDER Last Admin: 09/13/17 06:47 Dose: 40 mcg/kg/min, 16.493 mls/hr Insulin Human Regular (Humulin R Med) 0 units SC Q6 [facility] PRN Reason: Protocol Last Admin: 09/13/17 12:30 Dose: Not Given Levalbuterol HCl (Xopenex) 0.63 mg IH [id number] [facility] Last Admin: 09/13/17 13:17 Dose: 0.63 mg Lorazepam (Ativan) 2 mg IVP Q3H PRN; Protocol PRN Reason: Agitation Last Admin: 09/12/17 09:18 Dose: 2 mg Multivitamins/Vitamin C (Multi-Delyn Liquid) 15 ml PO 0800 [facility] Last Admin: 09/13/17 09:35 Dose: 15 ml Pantoprazole Sodium (Protonix Inj) 40 mg IVP Q12 [facility] Last Admin: 09/13/17 10:53 Dose: 40 mg Thiamine HCl (Vitamin B1 Inj) 100 mg IV DAILY [facility] Last Admin: 09/13/17 11:13 Dose: 100 mg Vancomycin HCl (Vancocin 25 Mg/Ml (Oral Use)) 500 mg PO Q6 [facility] PRN Reason: Protocol Last Admin: 09/13/17 13:21 Dose: 500 mg - Labs Labs: 09/13/17 05:59 09/13/17 05:59 PT 13.4 SECONDS (9.4-12.5) H 09/12/17 06:00 INR 1.16 (0.93-1.08) H 09/12/17 06:00 APTT 34.1 Seconds (25.1-36.5) 09/12/17 06:00
--- NOTE | 2017-09-13 16:12 | PN ---
DATE: 09/13/2017 SUBJECTIVE: The patient is seen and examined at bedside. He is comfortable. He is sedated with propofol 35 mcg/kg per minute; however, it was stopped for sedation vacation. PHYSICAL EXAMINATION: VITAL SIGNS: He is on PRVC 450/27/10/50%. On that setting, end-tidal CO2 on the monitor 25, oxygen saturation 97%, blood pressure 137/97, heart rate 96. The patient is on enteral feeds 20 mL per hour. (That was reduced yesterday when he was found to have high residual.) The patient has 150 mL of urine output overnight. He is expecting to have dialysis today. HEENT: Head and neck atraumatic. LUNGS: Decreased breath sounds bilaterally. HEART: Regular rate and rhythm. S1 and S2 distant. ABDOMEN: Soft, mildly distended, and significant anasarca. MUSCULOSKELETAL: A 2+ bilateral pedal and ankle edema. NEUROLOGIC: The patient is sedated, not responding to commands or touch stimuli. SKIN: Moist. PSYCHIATRIC: The patient is not responding to commands. LABORATORY DATA: WBC 12.2, hemoglobin 9.3, platelet count 53. Sodium 143, potassium 3.7, chloride 105, carbon dioxide 20, BUN 49, creatinine 4.7, glucose 192, AST 159, ALT 111, bilirubin 2.7. Chest x-ray showed bilateral pulmonary edema. Blood gas today is 7.27/39/82 on 50% FiO2. MEDICATIONS: Pulmicort, fentanyl p.r.n., folic acid, regular insulin sliding scale medium protocol, Keppra, Xopenex every 6 hours, Ativan p.r.n., Protonix, propofol, thiamine, and vancomycin. ASSESSMENT AND PLAN: This is a 47-year-old gentleman who presented with cardiac arrest due to distributive shock with multiorgan system failure. At the present time, he is off of pressors and undergoing sedation vacation. Neurology: The patient is off of sedation. He started to wake up a little bit. We will assess whether he is able to follow commands. Neurology will be followed up as well. CT head performed yesterday did not reveal any intracranial pathology, some moderate global parenchymal volume loss advanced for the patient's age. No mass, no swelling. EEG report is pending. Pulmonary: The patient is on PRVC. If awake and alert enough, we will attempt to wean down to PSV. Meanwhile, we will continue with protective lung ventilation strategy, conservative fluid and oxygen management. Head of bed elevated more than 35 degrees. Oral hygiene, VAP bundle. We will maintain plateau pressure less than 30 cm of water. Cardiovascular: The patient is hemodynamically stable, not on any pressor support. Renal: The patient has acute kidney injury and metabolic acidosis. He is substantially fluid overload. He will proceed with dialysis today to correct acid base and fluid status abnormalities. We will continue to maintain his mean arterial pressure more than 65. We will avoid nephrotoxic medication, but not at expense of treatment of underlying disease. We will continue with euvolemia and euglycemia for additional nephro- protection. Infectious Disease: The patient is on vancomycin p.o. for Clostridium difficile colitis. Contact precautions instituted. Today, he has a little spike in white cell count. We will further monitor. He is afebrile and remains hemodynamically stable. Blood culture so far negative. Sputum culture showed normal oral gerardo. Gastrointestinal: Patient has high-residual and enteral feeds were stopped. We will continue to observe him. Endocrine: We will maintain blood glucose within 140 to 180 range according to NICE-SUGAR trial. Continue to aim at euvolemia, euglycemia, normothermia and oxygen saturation more than 90%.. DVT and GI prophylaxis. ccm time 40 min Hasmukh Miller MD [facility]
[2017-09-14] MEDS: Vancomycin 25 MG/ML PO SCH ×4 (00:09→17:29)
[2017-09-14] MEDS: Insulin Reg-MEDIUM-Coverage SC SCH ×4 (00:10→17:28)
[2017-09-14] MEDS: Levalbuterol 0.63 MG/3 ML Inhal Soln UD IH SCH ×4 (02:00→19:33)
[2017-09-14 06:18] LABS: ARTERIAL BLOOD GAS HCO3 18.3 mmol/L (21-28); ARTERIAL BLOOD GAS HEMOGLOBIN 10.3 g/dL (11.7-17.4); ARTERIAL BLOOD GAS O2 CAPACITY 14.1 mL/dl (16-24); ARTERIAL BLOOD GAS O2 CONTENT 13.8 ML/dl (15-23); ARTERIAL BLOOD GAS O2 SAT 97.8 % (95-98); ARTERIAL BLOOD GAS PCO2 34 mm/Hg (35-45); ARTERIAL BLOOD GAS PH 7.34 (7.35-7.45); ARTERIAL BLOOD GAS TCO2 19.3 mmol.L (22-28)
--- NOTE | 2017-09-14 06:41 | CP.PCM.PN ---
Subjective - Date & Time of Evaluation Date of Evaluation: 09/14/17 Time of Evaluation: 06:36 - Subjective Subjective: Mr. Aguero was seen and examined at the bedside in ICU. He remains on mechanical ventilator on PRVC mode. His GCS-4T. He remains with positive gag reflex and corneal reflex.He does not have any continuous sedation drip, but easily gets agitated with any tactile stimuli. He has bilateral wrist restraints for patient safety. He remains with some intact blister and edema of the bilateral hands. He had hemodialysis yesterday.There was no untoward events overnight. Objective - Vital Signs/Intake and Output Vital Signs (last 24 hours): Temp Pulse Resp BP Pulse Ox 98.5 F 111 H 30 H 159/109 H 97 09/14/17 04:00 09/14/17 06:01 09/14/17 04:00 09/14/17 06:01 09/14/17 06:01 Intake and Output: 09/13/17 09/14/17 18:59 06:59 Intake Total 130 160 Output Total 0 300 Balance 130 -140 - Medications Medications: Current Medications Artificial Tears (Refresh Opth Soln) 0.3 ml OU Q12 [facility] Last Admin: 09/13/17 21:48 Dose: 0.3 ml Budesonide (Pulmicort Respules) 0.5 mg IH [id number] [facility] Last Admin: 09/13/17 07:23 Dose: 0.5 mg Folic Acid (Folic Acid) 1 mg IVP DAILY [facility] Last Admin: 09/13/17 11:12 Dose: 1 mg Levetiracetam 1,000 mg/ Sodium (Chloride) 110 mls @ 460 mls/hr IV Q12 [facility] Last Admin: 09/13/17 22:50 Dose: 460 mls/hr Propofol (Diprivan) 1,000 mg in 100 mls @ 2.062 mls/hr IV .Q24H PRN; Protocol; 5 MCG/KG/MIN PRN Reason: TITRATE PER MD ORDER Last Admin: 09/13/17 06:47 Dose: 40 mcg/kg/min, 16.493 mls/hr Insulin Human Regular (Humulin R Med) 0 units SC Q6 [facility] PRN Reason: Protocol Last Admin: 09/14/17 06:01 Dose: Not Given Levalbuterol HCl (Xopenex) 0.63 mg IH [id number] [facility] Last Admin: 09/13/17 13:17 Dose: 0.63 mg Lorazepam (Ativan) 2 mg IVP Q3H PRN; Protocol PRN Reason: Agitation Last Admin: 09/14/17 05:40 Dose: 2 mg Multivitamins/Vitamin C (Multi-Delyn Liquid) 15 ml PO 0800 [facility] Last Admin: 09/13/17 09:35 Dose: 15 ml Pantoprazole Sodium (Protonix Inj) 40 mg IVP Q12 [facility] Last Admin: 09/13/17 21:48 Dose: 40 mg Thiamine HCl (Vitamin B1 Inj) 100 mg IV DAILY [facility] Last Admin: 09/13/17 11:13 Dose: 100 mg Vancomycin HCl (Vancocin 25 Mg/Ml (Oral Use)) 500 mg PO Q6 [facility] PRN Reason: Protocol Last Admin: 09/14/17 05:14 Dose: 500 mg - Labs Labs: 09/13/17 05:59 09/13/17 05:59 PT 13.4 SECONDS (9.4-12.5) H 09/12/17 06:00 INR 1.16 (0.93-1.08) H 09/12/17 06:00 APTT 34.1 Seconds (25.1-36.5) 09/12/17 06:00 - Constitutional Appears: No Acute Distress - Head Exam Head Exam: NORMAL INSPECTION - Neurological Exam Neuro motor strength exam: Left Upper Extremity: 2/1, Right Upper Extremity: 2/1 , Left Lower Extremity: 2/1, Right Lower Extremity: 2/1 Additional comments: GCS-4T Assessment and Plan (1) Seizure Assessment & Plan: Case discussed with Dr. Reynolds, continue all current medical regimen. Treat any electrolyte abnormalities and infection. Pending EEG result. Status: Acute
[2017-09-14 06:45] LABS: MEAN CELL VOLUME 94.6 fl (80.0-105.0); MEAN CORPUSCULAR HEMOGLOBIN 30.3 pg (25.0-35.0); MEAN PLATELET VOLUME 11.1 fl (7.0-11.0); RBC 2.97 10^6/uL (3.5-6.1); RED CELL DISTRIBUTION WIDTH 15.9 % (11.5-14.5); WHITE BLOOD COUNT 17.2 10^3/ul (4.5-11.0)
--- NOTE | 2017-09-14 07:12 | CP.CCUPN ---
<Mayra Pierce - Last Filed: 09/14/17 11:54> CCU Subjective - Physician Review Subjective (Free Text): 09/14/17 11:54 Patient seen and examined at bedside. As per nursing patient was given 1 dose ativan overnight. Intubated on vent (450, 27, 50%, 10)- failed PS trial this AM. Opens eyes to tactile stumuli. Patient for HD today. Feeds on hold. Complete ROS unobtainable. Critical Care Time Spent (in minutes): 45 CCU Objective - Vital Signs / Intake & Output Vital Signs (Last 4 hours): Vital Signs Temp Pulse Resp BP Pulse Ox 09/14/17 06:01 111 H 159/109 H 97 09/14/17 06:00 99 H 09/14/17 05:45 105 H 99 09/14/17 05:30 118 H 98 09/14/17 05:15 104 H 98 09/14/17 05:00 112 H 159/103 H 97 09/14/17 04:45 110 H 98 09/14/17 04:30 116 H 98 09/14/17 04:15 101 H 99 09/14/17 04:00 98.5 F 117 H 30 H 146/100 H 97 09/14/17 03:45 112 H 100 09/14/17 03:30 114 H 98 09/14/17 03:15 112 H 98 Intake and Output (Last 8hrs): Intake & Output 09/13/17 09/14/17 09/14/17 22:59 06:59 14:59 Intake Total 130 160 Output Total 0 300 Balance 130 -140 Intake: IV 130 160 NS 30 60 meds 100 100 Output: Urine 0 300 Urethral (Chance) 0 300 Stool 0 - Physical Exam Head: Positive for: Atraumatic, Normocephalic Pupils: Positive for: PERRL Extroacular Muscles: Positive for: Other (exopthalmic) Conjunctiva: Positive for: Normal Mouth: Positive for: Moist Mucous Membranes, Other (ET tube in place) Neck: Positive for: Other (R IJ TLC in place). Negative for: Lymphadenopathy Respiratory/Chest: Positive for: Rales (at bases), Other (intubated on vent ). Negative for: Accessory Muscle Use, Wheezes, Retracting, Rhonchi, Tachypneic Cardiovascular: Positive for: Normal S1, S2, Tachycardic. Negative for: Regular Rate and Rhythm, Murmurs Abdomen: Positive for: Distention, Normal Bowel Sounds. Negative for: Tenderness, Peritoneal Signs Genitourinary Male: Positive for: Penile Swelling Back: Positive for: Normal Inspection Upper Extremity: Positive for: Normal Inspection. Negative for: Cyanosis, Edema Lower Extremity: Positive for: Normal Inspection. Negative for: Edema, CALF TENDERNESS Neurological: Positive for: Other (intubated- reacts to pain; no sedation). Negative for: GCS=15 Skin: Positive for: Warm, Dry, Other (bullae on left dorsal surface of hand). Negative for: Rashes Psychiatric: Negative for: Alert, Oriented x 3, Normal Insight, Normal Concentration - Medications Active Medications: Active Medications Generic Name Dose Route Start Last Admin Trade Name Freq PRN Reason Stop Dose Admin Artificial Tears 0.3 ml 09/12/17 10:00 09/13/17 21:48 Refresh Opth Soln OU 0.3 ml Q12 DENIA Administration Budesonide 0.5 mg 09/09/17 08:00 09/13/17 20:00 Pulmicort Respules IH 0.5 mg [id number] DENIA Administration Folic Acid 1 mg 09/10/17 10:00 09/13/17 11:12 Folic Acid IVP 1 mg DAILY DENIA Administration Levetiracetam 1,000 mg/ Sodium 110 mls @ 460 mls/hr 09/10/17 10:00 09/13/17 22:50 Chloride IV 460 mls/hr Q12 DENIA Administration Propofol 1,000 mg in 100 mls @ 2.062 mls/hr 09/12/17 11:52 09/13/17 06:47 Diprivan IV 40 mcg/kg/min .Q24H PRN 16.493 mls/hr TITRATE PER MD ORDER Administration Protocol 5 MCG/KG/MIN Insulin Human Regular 0 units 09/12/17 00:00 09/14/17 06:01 Humulin R Med SC Not Given Q6 [facility] Protocol Levalbuterol HCl 0.63 mg 09/10/17 20:00 09/14/17 02:00 Xopenex IH 0.63 mg [id number] DENIA Administration Lorazepam 2 mg 09/10/17 09:16 09/14/17 05:40 Ativan IVP 2 mg Q3H PRN Administration Agitation Protocol Multivitamins/Vitamin C 15 ml 09/11/17 08:00 09/13/17 09:35 Multi-Delyn Liquid PO 15 ml 0800 DENIA Administration Pantoprazole Sodium 40 mg 09/10/17 10:00 09/13/17 21:48 Protonix Inj IVP 40 mg Q12 DENIA Administration Thiamine HCl 100 mg 09/12/17 10:00 09/13/17 11:13 Vitamin B1 Inj IV 100 mg DAILY DENIA Administration Vancomycin HCl 500 mg 09/09/17 18:00 09/14/17 05:14 Vancocin 25 Mg/Ml (Oral Use) PO 500 mg Q6 DENIA Administration Protocol - Patient Studies Lab Studies: Microbiology Studies 09/08/17 12:30 Blood Culture - Final Blood-Venous NO GROWTH AFTER 5 DAYS Gram Stain - Final TEST NOT PERFORMED Lab Studies 09/14/17 09/14/17 09/13/17 Range/Units 06:15 00:09 21:54 pCO2 34 L (35-45) mm/Hg pO2 81.0 (80-100) mm/Hg HCO3 18.3 L (21-28) mmol/L ABG pH 7.34 L (7.35-7.45) ABG Total CO2 19.3 L (22-28) mmol.L ABG O2 Saturation 97.8 (95-98) % ABG O2 Content 13.8 L (15-23) ML/dl ABG Base Excess -6.7 L (-2.0-3.0) mmol/L ABG Hemoglobin 10.3 L (11.7-17.4) g/dL ABG Carboxyhemoglobin 2.3 H (0.5-1.5) % POC ABG HHb (Measured) 2.1 (0-5) % ABG Methemoglobin 0.9 (0.0-3.0) % ABG O2 Capacity 14.1 L (16-24) mL/dl Hgb O2 Saturation 94.7 L (95.0-98.0) % FiO2 50.0 % Sodium (132-148) mmol/L Potassium (3.6-5.0) mmol/L Chloride (98-107) mmol/L Carbon Dioxide (21-33) mmol/L Anion Gap (10-20) BUN (7-21) mg/dL Creatinine (0.8-1.5) mg/dl Est GFR ( Amer) Est GFR (Non-Af Amer) POC Glucose (mg/dL) 175 H 183 H (65-110) mg/dL Random Glucose (70-110) mg/dL Calcium (8.4-10.5) mg/dL Phosphorus (2.5-4.5) mg/dL Magnesium (1.7-2.2) mg/dL Total Bilirubin (0.2-1.3) mg/dL AST (17-59) U/L ALT (7-56) U/L Alkaline Phosphatase (38-126) U/L Total Protein (5.8-8.3) g/dL Albumin (3.0-4.8) g/dL Globulin gm/dL Albumin/Globulin Ratio (1.1-1.8) Hepatitis A IgM Ab (NEGATIVE) Hep Bs Antigen (NEGATIVE) Hep B Core IgM Ab (NEGATIVE) Hepatitis C Antibody (NEGATIVE) 09/13/17 09/13/17 09/13/17 Range/Units 18:08 11:32 07:37 pCO2 39 (35-45) mm/Hg pO2 82.0 (80-100) mm/Hg HCO3 17.9 L (21-28) mmol/L ABG pH 7.27 L (7.35-7.45) ABG Total CO2 19.1 L (22-28) mmol.L ABG O2 Saturation 97.9 (95-98) % ABG O2 Content 12.4 L (15-23) ML/dl ABG Base Excess -8.4 L (-2.0-3.0) mmol/L ABG Hemoglobin 9.2 L (11.7-17.4) g/dL ABG Carboxyhemoglobin 2.0 H (0.5-1.5) % POC ABG HHb (Measured) 2.0 (0-5) % ABG Methemoglobin 1.4 (0.0-3.0) % ABG O2 Capacity 12.7 L (16-24) mL/dl Hgb O2 Saturation 94.6 L (95.0-98.0) % FiO2 50.0 % Sodium (132-148) mmol/L Potassium (3.6-5.0) mmol/L Chloride (98-107) mmol/L Carbon Dioxide (21-33) mmol/L Anion Gap (10-20) BUN (7-21) mg/dL Creatinine (0.8-1.5) mg/dl Est GFR ( Amer) Est GFR (Non-Af Amer) POC Glucose (mg/dL) 221 H 138 H (65-110) mg/dL Random Glucose (70-110) mg/dL Calcium (8.4-10.5) mg/dL Phosphorus (2.5-4.5) mg/dL Magnesium (1.7-2.2) mg/dL Total Bilirubin (0.2-1.3) mg/dL AST (17-59) U/L ALT (7-56) U/L Alkaline Phosphatase (38-126) U/L Total Protein (5.8-8.3) g/dL Albumin (3.0-4.8) g/dL Globulin gm/dL Albumin/Globulin Ratio (1.1-1.8) Hepatitis A IgM Ab (NEGATIVE) Hep Bs Antigen (NEGATIVE) Hep B Core IgM Ab (NEGATIVE) Hepatitis C Antibody (NEGATIVE) 09/13/17 09/13/17 09/13/17 Range/Units 07:16 06:19 05:59 pCO2 (35-45) mm/Hg pO2 (80-100) mm/Hg HCO3 (21-28) mmol/L ABG pH (7.35-7.45) ABG Total CO2 (22-28) mmol.L ABG O2 Saturation (95-98) % ABG O2 Content (15-23) ML/dl ABG Base Excess (-2.0-3.0) mmol/L ABG Hemoglobin (11.7-17.4) g/dL ABG Carboxyhemoglobin (0.5-1.5) % POC ABG HHb (Measured) (0-5) % ABG Methemoglobin (0.0-3.0) % ABG O2 Capacity (16-24) mL/dl Hgb O2 Saturation (95.0-98.0) % FiO2 % Sodium 143 (132-148) mmol/L Potassium 3.7 (3.6-5.0) mmol/L Chloride 105 (98-107) mmol/L Carbon Dioxide 20 L (21-33) mmol/L Anion Gap 22 H (10-20) BUN 49 H (7-21) mg/dL Creatinine 4.7 H (0.8-1.5) mg/dl Est GFR ( Amer) 16 Est GFR (Non-Af Amer) 13 POC Glucose (mg/dL) 192 H (65-110) mg/dL Random Glucose 204 H (70-110) mg/dL Calcium 8.9 (8.4-10.5) mg/dL Phosphorus 4.6 H (2.5-4.5) mg/dL Magnesium 1.7 (1.7-2.2) mg/dL Total Bilirubin 2.7 H (0.2-1.3) mg/dL AST 159 H D (17-59) U/L ALT 111 H (7-56) U/L Alkaline Phosphatase 100 (38-126) U/L Total Protein 5.8 (5.8-8.3) g/dL Albumin 2.9 L (3.0-4.8) g/dL Globulin 2.9 gm/dL Albumin/Globulin Ratio 1.0 L (1.1-1.8) Hepatitis A IgM Ab (NEGATIVE) Hep Bs Antigen (NEGATIVE) Hep B Core IgM Ab (NEGATIVE) Hepatitis C Antibody (NEGATIVE) 09/12/17 Range/Units 16:04 pCO2 (35-45) mm/Hg pO2 (80-100) mm/Hg HCO3 (21-28) mmol/L ABG pH (7.35-7.45) ABG Total CO2 (22-28) mmol.L ABG O2 Saturation (95-98) % ABG O2 Content (15-23) ML/dl ABG Base Excess (-2.0-3.0) mmol/L ABG Hemoglobin (11.7-17.4) g/dL ABG Carboxyhemoglobin (0.5-1.5) % POC ABG HHb (Measured) (0-5) % ABG Methemoglobin (0.0-3.0) % ABG O2 Capacity (16-24) mL/dl Hgb O2 Saturation (95.0-98.0) % FiO2 % Sodium (132-148) mmol/L Potassium (3.6-5.0) mmol/L Chloride (98-107) mmol/L Carbon Dioxide (21-33) mmol/L Anion Gap (10-20) BUN (7-21) mg/dL Creatinine (0.8-1.5) mg/dl Est GFR ( Amer) Est GFR (Non-Af Amer) POC Glucose (mg/dL) (65-110) mg/dL Random Glucose (70-110) mg/dL Calcium (8.4-10.5) mg/dL Phosphorus (2.5-4.5) mg/dL Magnesium (1.7-2.2) mg/dL Total Bilirubin (0.2-1.3) mg/dL AST (17-59) U/L ALT (7-56) U/L Alkaline Phosphatase (38-126) U/L Total Protein (5.8-8.3) g/dL Albumin (3.0-4.8) g/dL Globulin gm/dL Albumin/Globulin Ratio (1.1-1.8) Hepatitis A IgM Ab Negative (NEGATIVE) Hep Bs Antigen Negative (NEGATIVE) Hep B Core IgM Ab Negative (NEGATIVE) Hepatitis C Antibody Negative (NEGATIVE) Laboratory Results - last 24 hr 09/12/17 09/13/17 09/13/17 16:04 05:59 06:19 pCO2 pO2 HCO3 ABG pH ABG Total CO2 ABG O2 Saturation ABG O2 Content ABG Base Excess ABG Hemoglobin ABG Carboxyhemoglobin POC ABG HHb (Measured) ABG Methemoglobin ABG O2 Capacity Hgb O2 Saturation FiO2 Sodium 143 Potassium 3.7 Chloride 105 Carbon Dioxide 20 L Anion Gap 22 H BUN 49 H Creatinine 4.7 H Est GFR ( Amer) 16 Est GFR (Non-Af Amer) 13 POC Glucose (mg/dL) 192 H Random Glucose 204 H Calcium 8.9 Phosphorus Magnesium Total Bilirubin 2.7 H AST 159 H D ALT 111 H Alkaline Phosphatase 100 Total Protein 5.8 Albumin 2.9 L Globulin 2.9 Albumin/Globulin Ratio 1.0 L Hepatitis A IgM Ab Negative Hep Bs Antigen Negative Hep B Core IgM Ab Negative Hepatitis C Antibody Negative 09/13/17 09/13/17 09/13/17 07:16 07:37 11:32 pCO2 39 pO2 82.0 HCO3 17.9 L ABG pH 7.27 L ABG Total CO2 19.1 L ABG O2 Saturation 97.9 ABG O2 Content 12.4 L ABG Base Excess -8.4 L ABG Hemoglobin 9.2 L ABG Carboxyhemoglobin 2.0 H POC ABG HHb (Measured) 2.0 ABG Methemoglobin 1.4 ABG O2 Capacity 12.7 L Hgb O2 Saturation 94.6 L FiO2 50.0 Sodium Potassium Chloride Carbon Dioxide Anion Gap BUN Creatinine Est GFR ( Amer) Est GFR (Non-Af Amer) POC Glucose (mg/dL) 138 H Random Glucose Calcium Phosphorus 4.6 H Magnesium 1.7 Total Bilirubin AST ALT Alkaline Phosphatase Total Protein Albumin Globulin Albumin/Globulin Ratio Hepatitis A IgM Ab Hep Bs Antigen Hep B Core IgM Ab Hepatitis C Antibody 09/13/17 09/13/17 09/14/17 18:08 21:54 00:09 pCO2 pO2 HCO3 ABG pH ABG Total CO2 ABG O2 Saturation ABG O2 Content ABG Base Excess ABG Hemoglobin ABG Carboxyhemoglobin POC ABG HHb (Measured) ABG Methemoglobin ABG O2 Capacity Hgb O2 Saturation FiO2 Sodium Potassium Chloride Carbon Dioxide Anion Gap BUN Creatinine Est GFR ( Amer) Est GFR (Non-Af Amer) POC Glucose (mg/dL) 221 H 183 H 175 H Random Glucose Calcium Phosphorus Magnesium Total Bilirubin AST ALT Alkaline Phosphatase Total Protein Albumin Globulin Albumin/Globulin Ratio Hepatitis A IgM Ab Hep Bs Antigen Hep B Core IgM Ab Hepatitis C Antibody 09/14/17 06:15 pCO2 34 L pO2 81.0 HCO3 18.3 L ABG pH 7.34 L ABG Total CO2 19.3 L ABG O2 Saturation 97.8 ABG O2 Content 13.8 L ABG Base Excess -6.7 L ABG Hemoglobin 10.3 L ABG Carboxyhemoglobin 2.3 H POC ABG HHb (Measured) 2.1 ABG Methemoglobin 0.9 ABG O2 Capacity 14.1 L Hgb O2 Saturation 94.7 L FiO2 50.0 Sodium Potassium Chloride Carbon Dioxide Anion Gap BUN Creatinine Est GFR ( Amer) Est GFR (Non-Af Amer) POC Glucose (mg/dL) Random Glucose Calcium Phosphorus Magnesium Total Bilirubin AST ALT Alkaline Phosphatase Total Protein Albumin Globulin Albumin/Globulin Ratio Hepatitis A IgM Ab Hep Bs Antigen Hep B Core IgM Ab Hepatitis C Antibody Fingerstick Blood Sugar Results: 216 Review of Systems - Review of Systems Systems not reviewed;Unavailable: Intubated Assessment/Plan - Assessment and Plan (Free Text) Assessment: 47yo male PMHx of DM2, HTN and alcohol abuse found to be in septic shock likely secondary to pancreatitis, aspiration pneumonia, IRWIN, transaminitis, seizures, metabolic acidosis, thrombocytopenia likely secondary to alcohol abuse, cardiac arrest s/p ROSC and respiratory failure. Plan: Neuro: Pt intubated on no sedation Ativan and Fentanyl prn agitation Head CT: negative Depakote d/c and changed to Keppra IV BID f/u EEG f/u repeat head CT Seizure precautions Maintain normothemia Neuro consulted- recs appreciated CV: cardiac arrest s/p ROSC Pt tachycardic Maintain MAP >65 Echo: unremarkable Monitor I&O Cardio consulted- recs appreciated Pulm: Intubated on PRVC- will titrate to maintain SpO2>92% Pt has crackles on exam and is in metabolic acidosis CXR showed pneumonia of RUL and L perihilar HOB elevated- asp precaution Pulmonary toilet Pulm consulted GI: Pancreatitis resolved and transaminitis trending down Abd U/S: fatty infiltration of liver, no evidence of cholelithiasis/ cholecystitis; no sonographic evidence of acute pancreatitis Folic acid, multivitamin, thiamine Avoid nephrotoxic medications Lipase and Amylase WNL Feeds on hold Hep panel negative GI consulted Surg consulted for PEG Heme: Thrombocytopenia secondary to EtOH abuse Hgb stable- no overt signs of bleeding Nephro: Patient to have HD today Maintain euvolemia Avoid nephrotoxic agents Monitor Is and Os and Daily Weight Nephro consulted- recs appreciated ID: C Diff positive ID consulted- recs appreciated afebrile overnight PO Vancomycin for 10-14 days for C. Diff Blood, urine, sputum cultures negative HIV, Strep, and legionella negative Endo: Hx of DM Pt on ISS Maintain euglycemia 140-180s GI ppx: Protonix DVT ppx: SCDs- no heparin due to thrombocytopenia Diet: feeds on hold Dispo: Prognosis guarded. Palliative care consulted. Pending trach/PEG Discussed with Dr. Angela pierce PGY2 <Hasmukh Miller - Last Filed: 09/18/17 09:59> CCU Objective - Vital Signs / Intake & Output Vital Signs (Last 4 hours): Vital Signs Pulse 09/18/17 06:00 78 Intake and Output (Last 8hrs): Intake & Output 09/17/17 09/18/17 09/18/17 22:59 06:59 14:59 Intake Total 2150 200 Output Total 3050 Balance -900 200 Intake: IV 800 200 meds 700 Tube Feeding 550 Other 800 Output: Gastric Amount 50 Nares 50 Stool 1000 Emesis 2000 - Medications Active Medications: Active Medications Generic Name Dose Route Start Last Admin Trade Name Freq PRN Reason Stop Dose Admin Artificial Tears 0.3 ml 09/14/17 10:18 09/17/17 21:43 Refresh Opth Soln OU 0.3 ml Q12 PRN Administration Dry eyes Budesonide 0.5 mg 09/09/17 08:00 09/18/17 08:00 Pulmicort Respules IH 0.5 mg [id number] DENIA Administration Clonidine HCl 1 patch 09/15/17 10:00 09/15/17 14:50 Catapres Tts1 0.1 Mg/24 Hr TD 1 patch Q7D@1000 DENIA Administration Folic Acid 1 mg 09/14/17 11:30 09/17/17 11:06 Folic Acid NG 1 mg DAILY DENIA Administration Hydralazine HCl 10 mg 09/15/17 17:23 09/18/17 05:04 Apresoline IVP 10 mg Q6 PRN Administration BP> 180 Levetiracetam 1,000 mg/ Sodium 110 mls @ 460 mls/hr 09/10/17 10:00 09/17/17 21:39 Chloride IV 460 mls/hr Q12 DENIA Administration Propofol 1,000 mg in 100 mls @ 2.062 mls/hr 09/12/17 11:52 09/18/17 06:08 Diprivan IV 40 mcg/kg/min .Q24H PRN 16.493 mls/hr TITRATE PER MD ORDER Administration Protocol 5 MCG/KG/MIN Metronidazole 500 mg in 100 mls @ 100 mls/hr 09/14/17 14:00 09/18/17 05:01 Flagyl IVPB 100 mls/hr Q8 DENIA Administration Protocol Meropenem 500 mg/ Sodium 100 mls @ 100 mls/hr 09/17/17 10:15 09/17/17 11:01 Chloride IVPB 09/24/17 10:16 100 mls/hr Q12 DENIA Administration Protocol Insulin Detemir 15 unit 09/17/17 22:00 09/17/17 21:08 Levemir SC 15 unit HS DENIA Administration Insulin Human Lispro 0 units 09/17/17 18:40 09/18/17 05:57 Humalog High SC 10 units Q6H DENIA Administration Protocol Levalbuterol HCl 0.63 mg 09/10/17 20:00 09/18/17 08:00 Xopenex IH 0.63 mg [id number] DENIA Administration Lorazepam 2 mg 09/10/17 09:16 09/14/17 10:15 Ativan IVP 2 mg Q3H PRN Administration Agitation Protocol Multivitamins/Vitamin C 15 ml 09/11/17 08:00 09/17/17 11:00 Multi-Delyn Liquid PO 15 ml 0800 DENIA Administration Pantoprazole Sodium 40 mg 09/17/17 11:45 09/17/17 21:08 Protonix Inj IVP 40 mg Q12 DENIA Administration Thiamine HCl 100 mg 09/12/17 10:00 09/17/17 10:59 Vitamin B1 Inj IV 100 mg DAILY DENIA Administration Tobramycin/Dexamethasone 0 ml 09/14/17 18:00 09/17/17 21:46 Tobradex Opht Susp OU 1 drop QID DENIA Administration Vancomycin HCl 500 mg 09/09/17 18:00 09/18/17 05:58 Vancocin 25 Mg/Ml (Oral Use) PO 500 mg Q6 DENIA Administration Protocol Vitamin A 1 ea 09/17/17 11:45 09/17/17 18:41 Vitamin A & D Oint Ud Foilpak TOP 1 ea Q8 PRN Administration Dry skin - Patient Studies Lab Studies: Microbiology Studies 09/17/17 13:00 Gram Stain - Final Trachasp Lab Studies 09/18/17 09/18/17 09/18/17 Range/Units 05:30 05:30 05:18 WBC 18.1 H (4.5-11.0) 10^3/ul RBC 3.39 L (3.5-6.1) 10^6/uL Hgb 10.2 L (14.0-18.0) g/dL Hct 32.0 L (42.0-52.0) % MCV 94.4 (80.0-105.0) fl MCH 30.1 (25.0-35.0) pg MCHC 31.9 (31.0-37.0) g/dl RDW 17.7 H (11.5-14.5) % Plt Count 113 L (120.0-450.0) 10^3/uL MPV 12.1 H (7.0-11.0) fl Gran % 67.3 (50.0-68.0) % Lymph % (Auto) 19.7 L (22.0-35.0) % [place] % (Auto) 11.0 H (1.0-6.0) % Eos % (Auto) 0.2 L (1.5-5.0) % Baso % (Auto) 1.8 (0.0-3.0) % Gran # 12.16 H (1.4-6.5) Lymph # (Auto) 3.6 H (1.2-3.4) [place] # (Auto) 2.0 H (0.1-0.6) Eos # (Auto) 0.0 (0.0-0.7) Baso # (Auto) 0.33 (0.0-2.0) K/mm3 pCO2 32 L (35-45) mm/Hg pO2 181.0 H (80-100) mm/Hg HCO3 22.2 (21-28) mmol/L ABG pH 7.45 (7.35-7.45) ABG Total CO2 23.2 (22-28) mmol.L ABG O2 Saturation 99.9 H (95-98) % ABG O2 Content 12.4 L (15-23) ML/dl ABG Base Excess -1.4 (-2.0-3.0) mmol/L ABG Hemoglobin 8.8 L (11.7-17.4) g/dL ABG Carboxyhemoglobin 2.2 H (0.5-1.5) % POC ABG HHb (Measured) 0.1 (0-5) % ABG Methemoglobin 0.9 (0.0-3.0) % ABG O2 Capacity 12.4 L (16-24) mL/dl Hgb O2 Saturation 96.9 (95.0-98.0) % FiO2 35.0 % Sodium 142 (132-148) mmol/L Potassium 4.2 (3.6-5.0) mmol/L Chloride 108 H (98-107) mmol/L Carbon Dioxide 22 (21-33) mmol/L Anion Gap 16 (10-20) BUN 42 H (7-21) mg/dL Creatinine 2.5 H (0.8-1.5) mg/dl Est GFR ( Amer) 33 Est GFR (Non-Af Amer) 28 POC Glucose (mg/dL) (65-110) mg/dL Random Glucose 337 H* (70-110) mg/dL Calcium 8.9 (8.4-10.5) mg/dL Phosphorus 3.2 (2.5-4.5) mg/dL Magnesium 1.7 (1.7-2.2) mg/dL Total Bilirubin 1.3 (0.2-1.3) mg/dL AST 40 (17-59) U/L ALT 44 (7-56) U/L Alkaline Phosphatase 312 H D (38-126) U/L Total Protein 6.2 (5.8-8.3) g/dL Albumin 2.7 L (3.0-4.8) g/dL Globulin 3.5 gm/dL Albumin/Globulin Ratio 0.8 L (1.1-1.8) Procalcitonin (0.19-0.49) NG/ML 09/18/17 09/18/17 09/18/17 Range/Units 05:10 00:30 00:10 WBC (4.5-11.0) 10^3/ul RBC (3.5-6.1) 10^6/uL Hgb (14.0-18.0) g/dL Hct (42.0-52.0) % MCV (80.0-105.0) fl MCH (25.0-35.0) pg MCHC (31.0-37.0) g/dl RDW (11.5-14.5) % Plt Count (120.0-450.0) 10^3/uL MPV (7.0-11.0) fl Gran % (50.0-68.0) % Lymph % (Auto) (22.0-35.0) % [place] % (Auto) (1.0-6.0) % Eos % (Auto) (1.5-5.0) % Baso % (Auto) (0.0-3.0) % Gran # (1.4-6.5) Lymph # (Auto) (1.2-3.4) [place] # (Auto) (0.1-0.6) Eos # (Auto) (0.0-0.7) Baso # (Auto) (0.0-2.0) K/mm3 pCO2 (35-45) mm/Hg pO2 (80-100) mm/Hg HCO3 (21-28) mmol/L ABG pH (7.35-7.45) ABG Total CO2 (22-28) mmol.L ABG O2 Saturation (95-98) % ABG O2 Content (15-23) ML/dl ABG Base Excess (-2.0-3.0) mmol/L ABG Hemoglobin (11.7-17.4) g/dL ABG Carboxyhemoglobin (0.5-1.5) % POC ABG HHb (Measured) (0-5) % ABG Methemoglobin (0.0-3.0) % ABG O2 Capacity (16-24) mL/dl Hgb O2 Saturation (95.0-98.0) % FiO2 % Sodium 140 (132-148) mmol/L Potassium 3.1 L (3.6-5.0) mmol/L Chloride 106 (98-107) mmol/L Carbon Dioxide 24 (21-33) mmol/L Anion Gap 14 (10-20) BUN 41 H (7-21) mg/dL Creatinine 2.4 H (0.8-1.5) mg/dl Est GFR ( Amer) 35 Est GFR (Non-Af Amer) 29 POC Glucose (mg/dL) 327 H (65-110) mg/dL Random Glucose 297 H (70-110) mg/dL Calcium 8.9 (8.4-10.5) mg/dL Phosphorus (2.5-4.5) mg/dL Magnesium 1.6 L (1.7-2.2) mg/dL Total Bilirubin (0.2-1.3) mg/dL AST (17-59) U/L ALT (7-56) U/L Alkaline Phosphatase (38-126) U/L Total Protein (5.8-8.3) g/dL Albumin (3.0-4.8) g/dL Globulin gm/dL Albumin/Globulin Ratio (1.1-1.8) Procalcitonin (0.19-0.49) NG/ML 09/17/17 09/17/17 09/17/17 Range/Units 23:55 18:17 11:09 WBC (4.5-11.0) 10^3/ul RBC (3.5-6.1) 10^6/uL Hgb (14.0-18.0) g/dL Hct (42.0-52.0) % MCV (80.0-105.0) fl MCH (25.0-35.0) pg MCHC (31.0-37.0) g/dl RDW (11.5-14.5) % Plt Count (120.0-450.0) 10^3/uL MPV (7.0-11.0) fl Gran % (50.0-68.0) % Lymph % (Auto) (22.0-35.0) % [place] % (Auto) (1.0-6.0) % Eos % (Auto) (1.5-5.0) % Baso % (Auto) (0.0-3.0) % Gran # (1.4-6.5) Lymph # (Auto) (1.2-3.4) [place] # (Auto) (0.1-0.6) Eos # (Auto) (0.0-0.7) Baso # (Auto) (0.0-2.0) K/mm3 pCO2 (35-45) mm/Hg pO2 (80-100) mm/Hg HCO3 (21-28) mmol/L ABG pH (7.35-7.45) ABG Total CO2 (22-28) mmol.L ABG O2 Saturation (95-98) % ABG O2 Content (15-23) ML/dl ABG Base Excess (-2.0-3.0) mmol/L ABG Hemoglobin (11.7-17.4) g/dL ABG Carboxyhemoglobin (0.5-1.5) % POC ABG HHb (Measured) (0-5) % ABG Methemoglobin (0.0-3.0) % ABG O2 Capacity (16-24) mL/dl Hgb O2 Saturation (95.0-98.0) % FiO2 % Sodium (132-148) mmol/L Potassium (3.6-5.0) mmol/L Chloride (98-107) mmol/L Carbon Dioxide (21-33) mmol/L Anion Gap (10-20) BUN (7-21) mg/dL Creatinine (0.8-1.5) mg/dl Est GFR ( Amer) Est GFR (Non-Af Amer) POC Glucose (mg/dL) 274 H 301 H 439 H* (65-110) mg/dL Random Glucose (70-110) mg/dL Calcium (8.4-10.5) mg/dL Phosphorus (2.5-4.5) mg/dL Magnesium (1.7-2.2) mg/dL Total Bilirubin (0.2-1.3) mg/dL AST (17-59) U/L ALT (7-56) U/L Alkaline Phosphatase (38-126) U/L Total Protein (5.8-8.3) g/dL Albumin (3.0-4.8) g/dL Globulin gm/dL Albumin/Globulin Ratio (1.1-1.8) Procalcitonin (0.19-0.49) NG/ML 09/17/17 Range/Units 10:45 WBC (4.5-11.0) 10^3/ul RBC (3.5-6.1) 10^6/uL Hgb (14.0-18.0) g/dL Hct (42.0-52.0) % MCV (80.0-105.0) fl MCH (25.0-35.0) pg MCHC (31.0-37.0) g/dl RDW (11.5-14.5) % Plt Count (120.0-450.0) 10^3/uL MPV (7.0-11.0) fl Gran % (50.0-68.0) % Lymph % (Auto) (22.0-35.0) % [place] % (Auto) (1.0-6.0) % Eos % (Auto) (1.5-5.0) % Baso % (Auto) (0.0-3.0) % Gran # (1.4-6.5) Lymph # (Auto) (1.2-3.4) [place] # (Auto) (0.1-0.6) Eos # (Auto) (0.0-0.7) Baso # (Auto) (0.0-2.0) K/mm3 pCO2 (35-45) mm/Hg pO2 (80-100) mm/Hg HCO3 (21-28) mmol/L ABG pH (7.35-7.45) ABG Total CO2 (22-28) mmol.L ABG O2 Saturation (95-98) % ABG O2 Content (15-23) ML/dl ABG Base Excess (-2.0-3.0) mmol/L ABG Hemoglobin (11.7-17.4) g/dL ABG Carboxyhemoglobin (0.5-1.5) % POC ABG HHb (Measured) (0-5) % ABG Methemoglobin (0.0-3.0) % ABG O2 Capacity (16-24) mL/dl Hgb O2 Saturation (95.0-98.0) % FiO2 % Sodium (132-148) mmol/L Potassium (3.6-5.0) mmol/L Chloride (98-107) mmol/L Carbon Dioxide (21-33) mmol/L Anion Gap (10-20) BUN (7-21) mg/dL Creatinine (0.8-1.5) mg/dl Est GFR ( Amer) Est GFR (Non-Af Amer) POC Glucose (mg/dL) (65-110) mg/dL Random Glucose (70-110) mg/dL Calcium (8.4-10.5) mg/dL Phosphorus (2.5-4.5) mg/dL Magnesium (1.7-2.2) mg/dL Total Bilirubin (0.2-1.3) mg/dL AST (17-59) U/L ALT (7-56) U/L Alkaline Phosphatase (38-126) U/L Total Protein (5.8-8.3) g/dL Albumin (3.0-4.8) g/dL Globulin gm/dL Albumin/Globulin Ratio (1.1-1.8) Procalcitonin 2.76 H (0.19-0.49) NG/ML Laboratory Results - last 24 hr 09/17/17 09/17/17 09/17/17 10:45 11:09 18:17 WBC RBC Hgb Hct MCV MCH MCHC RDW Plt Count MPV Gran % Lymph % (Auto) [place] % (Auto) Eos % (Auto) Baso % (Auto) Gran # Lymph # (Auto) [place] # (Auto) Eos # (Auto) Baso # (Auto) pCO2 pO2 HCO3 ABG pH ABG Total CO2 ABG O2 Saturation ABG O2 Content ABG Base Excess ABG Hemoglobin ABG Carboxyhemoglobin POC ABG HHb (Measured) ABG Methemoglobin ABG O2 Capacity Hgb O2 Saturation FiO2 Sodium Potassium Chloride Carbon Dioxide Anion Gap BUN Creatinine Est GFR ( Amer) Est GFR (Non-Af Amer) POC Glucose (mg/dL) 439 H* 301 H Random Glucose Calcium Phosphorus Magnesium Total Bilirubin AST ALT Alkaline Phosphatase Total Protein Albumin Globulin Albumin/Globulin Ratio Procalcitonin 2.76 H 09/17/17 09/18/17 09/18/17 23:55 00:10 00:30 WBC RBC Hgb Hct MCV MCH MCHC RDW Plt Count MPV Gran % Lymph % (Auto) [place] % (Auto) Eos % (Auto) Baso % (Auto) Gran # Lymph # (Auto) [place] # (Auto) Eos # (Auto) Baso # (Auto) pCO2 pO2 HCO3 ABG pH ABG Total CO2 ABG O2 Saturation ABG O2 Content ABG Base Excess ABG Hemoglobin ABG Carboxyhemoglobin POC ABG HHb (Measured) ABG Methemoglobin ABG O2 Capacity Hgb O2 Saturation FiO2 Sodium 140 Potassium 3.1 L Chloride 106 Carbon Dioxide 24 Anion Gap 14 BUN 41 H Creatinine 2.4 H Est GFR ( Amer) 35 Est GFR (Non-Af Amer) 29 POC Glucose (mg/dL) 274 H Random Glucose 297 H Calcium 8.9 Phosphorus Magnesium 1.6 L Total Bilirubin AST ALT Alkaline Phosphatase Total Protein Albumin Globulin Albumin/Globulin Ratio Procalcitonin 09/18/17 09/18/17 09/18/17 05:10 05:18 05:30 WBC RBC Hgb Hct MCV MCH MCHC RDW Plt Count MPV Gran % Lymph % (Auto) Callaway % (Auto) Eos % (Auto) Baso % (Auto) Gran # Lymph # (Auto) Callaway # (Auto) Eos # (Auto) Baso # (Auto) pCO2 32 L pO2 181.0 H HCO3 22.2 ABG pH 7.45 ABG Total CO2 23.2 ABG O2 Saturation 99.9 H ABG O2 Content 12.4 L ABG Base Excess -1.4 ABG Hemoglobin 8.8 L ABG Carboxyhemoglobin 2.2 H POC ABG HHb (Measured) 0.1 ABG Methemoglobin 0.9 ABG O2 Capacity 12.4 L Hgb O2 Saturation 96.9 FiO2 35.0 Sodium 142 Potassium 4.2 Chloride 108 H Carbon Dioxide 22 Anion Gap 16 BUN 42 H Creatinine 2.5 H Est GFR ( Amer) 33 Est GFR (Non-Af Amer) 28 POC Glucose (mg/dL) 327 H Random Glucose 337 H* Calcium 8.9 Phosphorus 3.2 Magnesium 1.7 Total Bilirubin 1.3 AST 40 ALT 44 Alkaline Phosphatase 312 H D Total Protein 6.2 Albumin 2.7 L Globulin 3.5 Albumin/Globulin Ratio 0.8 L Procalcitonin 09/18/17 05:30 WBC 18.1 H RBC 3.39 L Hgb 10.2 L Hct 32.0 L MCV 94.4 MCH 30.1 MCHC 31.9 RDW 17.7 H Plt Count 113 L MPV 12.1 H Gran % 67.3 Lymph % (Auto) 19.7 L Callaway % (Auto) 11.0 H Eos % (Auto) 0.2 L Baso % (Auto) 1.8 Gran # 12.16 H Lymph # (Auto) 3.6 H Callaway # (Auto) 2.0 H Eos # (Auto) 0.0 Baso # (Auto) 0.33 pCO2 pO2 HCO3 ABG pH ABG Total CO2 ABG O2 Saturation ABG O2 Content ABG Base Excess ABG Hemoglobin ABG Carboxyhemoglobin POC ABG HHb (Measured) ABG Methemoglobin ABG O2 Capacity Hgb O2 Saturation FiO2 Sodium Potassium Chloride Carbon Dioxide Anion Gap BUN Creatinine Est GFR ( Amer) Est GFR (Non-Af Amer) POC Glucose (mg/dL) Random Glucose Calcium Phosphorus Magnesium Total Bilirubin AST ALT Alkaline Phosphatase Total Protein Albumin Globulin Albumin/Globulin Ratio Procalcitonin Critical Care Progress Note - Nutrition Nutrition: Nutrition Category Date Time Status NPO Diet [DIET] Diets 09/19/17 Breakfast Ordered Attending/Attestation - Attestation I have personally seen and examined this patient.: Yes I have fully participated in the care of the patient.: Yes I have reviewed all pertinent clinical information: Yes Notes (Text): 09/18/17 09:54 47 yo with altered mental status, most likely some degree of anoxic brain injury after cardiac arrest, who however responding to touch stimuli with moving all extremities. no seizures on EEG and no significant slowing, but beta waves due to benzos at the time EEG was done (as per neuro). CTH no edema. Will aim at trach and peg shortly if no temple of supratentorial activity. HD as per nephrology service. Maintain conservative fluid and oxygen management. Protective lung ventilation strategy, HOB>35 degrees, oral hygiene, DVT/GI prophylaxis ccm time 40 min
[2017-09-14 07:22] LABS: PLATELET COUNT 44 10^3/uL (120.0-450.0)
[2017-09-14 07:24] LABS: ALBUMIN 2.9 g/dL (3.0-4.8); CALCIUM 9.2 mg/dL (8.4-10.5)
[2017-09-14] MEDS: Budesonide 0.5 mg/2 ml Inhal Susp UD IH SCH ×2 (07:48→19:32)
[2017-09-14 07:50] LABS: MAGNESIUM 1.8 mg/dL (1.7-2.2)
--- NOTE | 2017-09-14 09:46 | CP.PCM.PN ---
Subjective - Date & Time of Evaluation Date of Evaluation: 09/14/17 Time of Evaluation: 09:40 - Subjective Subjective: Follow up Nephrology Consultation: Assessment: critical Acute Kidney Injury (N17.9) likely due to pre-renal state, SIRS, Acute tubular necrosis Hyponatermia, hypokalemia DM, HTN, chronic alcoholism, hepatic dysfunction acute pancreatitis HAGMA with lactic acidosis + alcohol ketoacidosis and starvation ketoacidosis Thrombocytopenia Hypomagnesemia, hypophosphatemia s/p cardiac arrest, seizure ARDS Plan Discussed w/ ICU team- will dialyze again today to get negative and assist w/ vent weaning. CT scan reviewed lytes are otherwise stable will dialyze on 3.5 k bath S: seen and examined remains intubated and sedated Physical Examination: General Appearance: ill appearing. on vent Vitals reviewed and noted as below Head; Atraumatic, normocephalic ENT: intubated Neck; supple no lymphadenopathy, no thyromegaly or bruit Lungs: Increased respiratory rate/effort. mechanical bs Heart: Increased rate. s1s2 normal. No rub or gallop. Extremities: 1+ edema. No varicose veins Neurological: Patient is sedated Skin: Warm and dry. Normal turgor. No rash. Palpitation: Normal elasticity for age Abdomen: Abdomen is soft. Bowel sounds decreased. There is mild abdominal tenderness, no guarding/rigidity no organomegaly. distended. has rectal tube Psych: unable to assess MSK: no joint tenderness or swelling. has clubbing : kidney or bladder not palpable Labs/imaging reviewed. Objective - Vital Signs/Intake and Output Vital Signs (last 24 hours): Temp Pulse Resp BP Pulse Ox 98.5 F 111 H 30 H 159/109 H 97 09/14/17 04:00 09/14/17 06:01 09/14/17 04:00 09/14/17 06:01 09/14/17 06:01 Intake and Output: 09/14/17 09/14/17 06:59 18:59 Intake Total 160 Output Total 300 Balance -140 - Medications Medications: Current Medications Artificial Tears (Refresh Opth Soln) 0.3 ml OU Q12 [facility] Last Admin: 09/13/17 21:48 Dose: 0.3 ml Budesonide (Pulmicort Respules) 0.5 mg IH [id number] [facility] Last Admin: 09/14/17 07:48 Dose: 0.5 mg Folic Acid (Folic Acid) 1 mg IVP DAILY [facility] Last Admin: 09/13/17 11:12 Dose: 1 mg Levetiracetam 1,000 mg/ Sodium (Chloride) 110 mls @ 460 mls/hr IV Q12 [facility] Last Admin: 09/13/17 22:50 Dose: 460 mls/hr Propofol (Diprivan) 1,000 mg in 100 mls @ 2.062 mls/hr IV .Q24H PRN; Protocol; 5 MCG/KG/MIN PRN Reason: TITRATE PER MD ORDER Last Admin: 09/13/17 06:47 Dose: 40 mcg/kg/min, 16.493 mls/hr Insulin Human Regular (Humulin R Med) 0 units SC Q6 [facility] PRN Reason: Protocol Last Admin: 09/14/17 06:01 Dose: Not Given Levalbuterol HCl (Xopenex) 0.63 mg IH [id number] [facility] Last Admin: 09/14/17 07:47 Dose: 0.63 mg Lorazepam (Ativan) 2 mg IVP Q3H PRN; Protocol PRN Reason: Agitation Last Admin: 09/14/17 05:40 Dose: 2 mg Multivitamins/Vitamin C (Multi-Delyn Liquid) 15 ml PO 0800 [facility] Last Admin: 09/13/17 09:35 Dose: 15 ml Pantoprazole Sodium (Protonix Inj) 40 mg IVP Q12 [facility] Last Admin: 09/13/17 21:48 Dose: 40 mg Thiamine HCl (Vitamin B1 Inj) 100 mg IV DAILY [facility] Last Admin: 09/13/17 11:13 Dose: 100 mg Vancomycin HCl (Vancocin 25 Mg/Ml (Oral Use)) 500 mg PO Q6 [facility] PRN Reason: Protocol Last Admin: 09/14/17 05:14 Dose: 500 mg - Labs Labs: 09/14/17 05:10 09/14/17 05:10 PT 13.4 SECONDS (9.4-12.5) H 09/12/17 06:00 INR 1.16 (0.93-1.08) H 09/12/17 06:00 APTT 34.1 Seconds (25.1-36.5) 09/12/17 06:00
[2017-09-14] MEDS ORDERED: Potassium Chloride 40 mEq/30 ml LIQ UD PO ONE (09:47)
[2017-09-14] MEDS: Multi Vitamins 15 mL UD Oral Solution PO SCH (10:11)
[2017-09-14] MEDS: Thiamine 100 mg/ml Inj IV SCH (10:12)
[2017-09-14] MEDS: levETIRAcetam 1,000 MG in Sodium Chloride 0.9% 100 ML IV SCH ×2 (10:16→22:46)
[2017-09-14] MEDS: Lubricant Eye Drops UD OU SCH (10:18)
--- NOTE | 2017-09-14 10:56 | CP.PCM.PN ---
Subjective - Date & Time of Evaluation Date of Evaluation: 09/14/17 Time of Evaluation: 10:30 - Subjective Subjective: Continues to be on the ventilator, still with diarrhea through the rectal tube, still on dialysis. No fevers overnight. Objective - Vital Signs/Intake and Output Vital Signs (last 24 hours): Temp Pulse Resp BP Pulse Ox 98.5 F 111 H 30 H 159/109 H 97 09/14/17 04:00 09/14/17 06:01 09/14/17 04:00 09/14/17 06:01 09/14/17 06:01 Intake and Output: 09/13/17 09/14/17 18:59 06:59 Intake Total 130 160 Output Total 0 300 Balance 130 -140 - Medications Medications: Current Medications Artificial Tears (Refresh Opth Soln) 0.3 ml OU Q12 [facility] Last Admin: 09/13/17 21:48 Dose: 0.3 ml Budesonide (Pulmicort Respules) 0.5 mg IH [id number] [facility] Last Admin: 09/13/17 20:00 Dose: 0.5 mg Folic Acid (Folic Acid) 1 mg IVP DAILY [facility] Last Admin: 09/13/17 11:12 Dose: 1 mg Levetiracetam 1,000 mg/ Sodium (Chloride) 110 mls @ 460 mls/hr IV Q12 [facility] Last Admin: 09/13/17 22:50 Dose: 460 mls/hr Propofol (Diprivan) 1,000 mg in 100 mls @ 2.062 mls/hr IV .Q24H PRN; Protocol; 5 MCG/KG/MIN PRN Reason: TITRATE PER MD ORDER Last Admin: 09/13/17 06:47 Dose: 40 mcg/kg/min, 16.493 mls/hr Insulin Human Regular (Humulin R Med) 0 units SC Q6 [facility] PRN Reason: Protocol Last Admin: 09/14/17 06:01 Dose: Not Given Levalbuterol HCl (Xopenex) 0.63 mg IH [id number] [facility] Last Admin: 09/14/17 02:00 Dose: 0.63 mg Lorazepam (Ativan) 2 mg IVP Q3H PRN; Protocol PRN Reason: Agitation Last Admin: 09/14/17 05:40 Dose: 2 mg Multivitamins/Vitamin C (Multi-Delyn Liquid) 15 ml PO 0800 [facility] Last Admin: 09/13/17 09:35 Dose: 15 ml Pantoprazole Sodium (Protonix Inj) 40 mg IVP Q12 [facility] Last Admin: 09/13/17 21:48 Dose: 40 mg Thiamine HCl (Vitamin B1 Inj) 100 mg IV DAILY [facility] Last Admin: 09/13/17 11:13 Dose: 100 mg Vancomycin HCl (Vancocin 25 Mg/Ml (Oral Use)) 500 mg PO Q6 [facility] PRN Reason: Protocol Last Admin: 09/14/17 05:14 Dose: 500 mg - Labs Labs: 09/13/17 05:59 09/13/17 05:59 PT 13.4 SECONDS (9.4-12.5) H 09/12/17 06:00 INR 1.16 (0.93-1.08) H 09/12/17 06:00 APTT 34.1 Seconds (25.1-36.5) 09/12/17 06:00 - Constitutional Appears: Other (intubated, sedated) - Head Exam Head Exam: NORMAL INSPECTION - ENT Exam Additional comments: ET tube in place - Neck Exam Additional comments: right IJ TLC in place and intact - Respiratory Exam Respiratory Exam: Decreased Breath Sounds - Cardiovascular Exam Cardiovascular Exam: +S1, +S2 - GI/Abdominal Exam GI & Abdominal Exam: Soft. absent: Tenderness - Extremities Exam Additional comments: right groin Shiley catheter in place Assessment and Plan - Assessment and Plan (Free Text) Plan: Assessment Systemic Inflammatory Reponse Syndrome, with VDRF consider severe sepsis with renal failure and VDRF due to C. diff. associated diarrhea on top of acute alcoholic pancreatitis Thrombocytopenia with alcoholic liver disease DM HTN Plan blood and urine cx are negative, CXR is more compatible with pulmonary edema than pneumonia, PCT is elevated but patient has renal failure continue PO Vancomycin day 5 for 10-14 days and will add IV Flagyl since the patient continues to have diarrhea overall prognosis is poor
--- NOTE | 2017-09-14 11:34 | RAD ---
HISTORY: intubated on vent COMPARISON: 09/13/2017 FINDINGS: LUNGS: There is improvement in the left upper lobe infiltrate. Minimal interstitial infiltrates bilaterally PLEURA: No significant pleural effusion identified, no pneumothorax apparent. CARDIOVASCULAR: Mild cardiomegaly OSSEOUS STRUCTURES: No significant abnormalities. VISUALIZED UPPER ABDOMEN: Normal. OTHER FINDINGS: Central lines unchanged IMPRESSION: Improvement in left upper lobe infiltrate
--- NOTE | 2017-09-14 12:21 | PCM.EEG ---
Electroencephalogram Report - Electroencephalogram Report Procedure Date: 09/10/17 Interpretation: Indication: Seizure. Medications were reviewed. Technical: This is a digitally recorded electroencephalogram. The international 10-20 electrode placement system is used for scalp electrode placement. Eighteen channels of scalp EEG are recorded One channel was used for EOG. Another channel was used for for ECG. The data are stored digitally and reviewed in reformatted montages for optimal display. Background: 9 to 10 hertz alpha activity was seen. Maximal over the posterior head region. These activities are symmetric on both sides. They attenuated with eye opening. Small amount of beta activities are seen. Description: No focal slowing was seen. No seizure like activity was observed during this recording. Patient entered into periods of drowsiness and light sleep. No abnormality was seen. Diffuse Abnormality: Increased beta activity was seen intermittently. Impression: Normal EEG. Increased beta activity may be an effect of benzodiazepines. No focal slowing no seizure like activity was observed. Correlation with clinical findings is needed.
--- NOTE | 2017-09-14 12:28 | CP.PCM.PN ---
<Jay Harden - Last Filed: 09/14/17 13:24> Subjective - Date & Time of Evaluation Date of Evaluation: 09/14/17 Time of Evaluation: 11:30 - Subjective Subjective: Jay Harden PGY1 IM Progress Note Patient was seen and examined at bedside in ICU. Patient remains intubated and failed pressure support trial earlier today. Remains arousable to pain today off sedation, but is still not awake or alert. Per nurse, there were no acute overnight events. Patient is off pressors. There is loose brown stools in rectal tube bag and lazo in. Patient ROS unobtainable. Objective - Vital Signs/Intake and Output Vital Signs (last 24 hours): Temp Pulse Resp BP Pulse Ox 98.5 F 118 H 30 H 190/116 H 97 09/14/17 04:00 09/14/17 12:15 09/14/17 04:00 09/14/17 12:00 09/14/17 12:15 Intake and Output: 09/14/17 09/14/17 06:59 18:59 Intake Total 160 Output Total 300 Balance -140 - Medications Medications: Current Medications Artificial Tears (Refresh Opth Soln) 0.3 ml OU Q12 PRN PRN Reason: Dry eyes Budesonide (Pulmicort Respules) 0.5 mg IH [id number] [facility] Last Admin: 09/14/17 07:48 Dose: 0.5 mg Folic Acid (Folic Acid) 1 mg NG DAILY [facility] Levetiracetam 1,000 mg/ Sodium (Chloride) 110 mls @ 460 mls/hr IV Q12 [facility] Last Admin: 09/14/17 10:16 Dose: 460 mls/hr Propofol (Diprivan) 1,000 mg in 100 mls @ 2.062 mls/hr IV .Q24H PRN; Protocol; 5 MCG/KG/MIN PRN Reason: TITRATE PER MD ORDER Last Admin: 09/13/17 06:47 Dose: 40 mcg/kg/min, 16.493 mls/hr Metronidazole (Flagyl) 500 mg in 100 mls @ 100 mls/hr IVPB Q8 [facility] PRN Reason: Protocol Insulin Human Regular (Humulin R Med) 0 units SC Q6 [facility] PRN Reason: Protocol Last Admin: 09/14/17 06:01 Dose: Not Given Levalbuterol HCl (Xopenex) 0.63 mg IH [id number] [facility] Last Admin: 09/14/17 07:47 Dose: 0.63 mg Lorazepam (Ativan) 2 mg IVP Q3H PRN; Protocol PRN Reason: Agitation Last Admin: 09/14/17 10:15 Dose: 2 mg Multivitamins/Vitamin C (Multi-Delyn Liquid) 15 ml PO 0800 [facility] Last Admin: 09/14/17 10:11 Dose: 15 ml Pantoprazole Sodium (Protonix Inj) 40 mg IVP Q12 [facility] Last Admin: 09/14/17 10:11 Dose: 40 mg Thiamine HCl (Vitamin B1 Inj) 100 mg IV DAILY [facility] Last Admin: 09/14/17 10:12 Dose: 100 mg Vancomycin HCl (Vancocin 25 Mg/Ml (Oral Use)) 500 mg PO Q6 [facility] PRN Reason: Protocol Last Admin: 09/14/17 11:59 Dose: 500 mg - Labs Labs: 09/14/17 05:10 09/14/17 05:10 PT 13.4 SECONDS (9.4-12.5) H 09/12/17 06:00 INR 1.16 (0.93-1.08) H 09/12/17 06:00 APTT 34.1 Seconds (25.1-36.5) 09/12/17 06:00 - Additional Findings Additional findings: - Constitutional Appears: No Acute Distress - Head Exam Head Exam: ATRAUMATIC, NORMAL INSPECTION - Eye Exam Eye Exam: PERRL (sluggish), Scleral icterus - ENT Exam Additional comments: intubated - Neck Exam Neck Exam: Normal Inspection Additional comments: R IJ in place - Respiratory Exam Respiratory Exam: absent: Rales, Rhonchi, Wheezes Additional comments: intubated, on vent - Cardiovascular Exam Cardiovascular Exam: Tachycardia, +S1, +S2 - GI/Abdominal Exam GI & Abdominal Exam: Distended. absent: Tenderness Additional comments: rectal tube in place, draining brown loose stools : lazo catheter in place abdomen distended - Extremities Exam Extremities Exam: Normal Inspection Additional comments: swollen testicle and penis L hand swollen bullous Shiley catheter in R femoral - Back Exam Back Exam: NORMAL INSPECTION - Neurological Exam Neurological Exam: Altered (GCS 4t) - Psychiatric Exam Additional comments: unable to assess - Skin Skin Exam: Normal Color Assessment and Plan - Assessment and Plan (Free Text) Assessment: 47yo M with a PMH of DM2, HTN and alcohol use who presented with URI symptoms such as cough, shortness of breath, palpitations. Last alcoholic drink was night prior to admission. Patient was admitted for septic shock (with lactate of 7.7 on presentation), high anion gap metabolic acidosis, acute pancreatitis 2 /2 ETOH vs triglycerides, IRWIN vs CKD, elevated LFTs likely 2/2 ETOH, elevated BNP, hyponatremia, and hypokalemia. s/p cardiac arrest and ROSC. Upon ROSC, patient vomited and likely aspirated, but was turned to the side and suctioned. Intubated and on vent with sedation in ICU. Patient intially required pressors to maintain BP but is no longer needing them. Remains on Keppra for seizure ppx. IRWIN worsened, so patient required temporary dialysis (2 sessions so far; likely requiring daily until improved kidney function). Liver enzymes are improving. Lipase trending down so pancreatitis improving. Plan: 1. Septic shock - continue ICU monitoring due to unstable vitals and altered mental state - Lipase and Amylase were elevated indicating pancreatitis 2/2 ETOH vs TG (>1000 ), trending down - tube foods held today due to abdominal distention; if improved, will cont tube feeds - CXR showing improvement in left upper lobe infiltrate - CT Findings on admission are concerning for acute pancreatitis w/o ductal dilatation, calcifications or pseudocyst. alcoholic liver steatosis - off pressors - Maintain normothermia - tylenol supp PRN - blood, urine, trachea cultures showed no growth - stool cultures indicating cdiff +Ag/-Toxin; - cont contact precautions and PO Vanc - start IV flagyl for diarrhea - Monitor vitals - Maintain MAP > 65 - ID consulted for management of septic shock, recs appreciated - GI consulted for alcoholic pancreatitis and +stool occult blood, recs appreciated - Surgery consulted for abdominal distention and for trach/peg placement, recs appreciated - Palliative care consulted for advanced directives, patient will be [facility] 2. AMS 2/2 Anion gap metabolic acidosis likely 2/2 lactic acidosis and ETOH - s/p cardiac arrest 09/08 - CT Head showed no acute intracranial abnormalities and mild chronic microangiopathic changes, w/ moderate global parencyhmal volume loss - patient was intubated to protect airway due to hypoxemia and vomiting to reduce risk of aspiration; daily vent weaning trials - ativan prn agitation added - Maintain SaO2 > 90% - TSH and A1C WNL - EEG was normal - cont Keppra for seizure ppx - Neurology consulted, recs appreciated - Cardiology consulted, recs appreciated 3. IRWIN vs CKD a/w Hypophosphatemia - temp dialysis catheter placed - 2nd dialysis session today - FENa 3.2 indicating ATN - given septic shock, likely component of pre-renal and intrinsic ischemic ATN ( coarse granular casts seen on UA) - avoid nephrotoxins - Nephrology consulted, recs appreciated 4. 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 Transaminitis likely w/ underlying liver disease, improving - likely 2/2 shock liver and chronic ETOH use since INR is elevated - hepatitis panel negative - HIV pending - continue to monitor 6. Poor prognosis - to meet with to establish understanding of condition - Palliative care consulted Patient was seen, examined and discussed with attending, Dr. Frances Harden PGY1 Pager # [phone] <Jeanne Daniels - Last Filed: 09/14/17 16:21> Objective - Vital Signs/Intake and Output Vital Signs (last 24 hours): Temp Pulse Resp BP Pulse Ox 98.5 F 96 H 26 H 178/97 H 100 09/14/17 04:00 09/14/17 14:15 09/14/17 14:11 09/14/17 14:00 09/14/17 14:15 Intake and Output: 09/14/17 09/14/17 06:59 18:59 Intake Total 160 Output Total 300 Balance -140 - Medications Medications: Current Medications Artificial Tears (Refresh Opth Soln) 0.3 ml OU Q12 PRN PRN Reason: Dry eyes Budesonide (Pulmicort Respules) 0.5 mg IH [id number] [facility] Last Admin: 09/14/17 07:48 Dose: 0.5 mg Folic Acid (Folic Acid) 1 mg NG DAILY [facility] Levetiracetam 1,000 mg/ Sodium (Chloride) 110 mls @ 460 mls/hr IV Q12 [facility] Last Admin: 09/14/17 10:16 Dose: 460 mls/hr Propofol (Diprivan) 1,000 mg in 100 mls @ 2.062 mls/hr IV .Q24H PRN; Protocol; 5 MCG/KG/MIN PRN Reason: TITRATE PER MD ORDER Last Admin: 09/13/17 06:47 Dose: 40 mcg/kg/min, 16.493 mls/hr Metronidazole (Flagyl) 500 mg in 100 mls @ 100 mls/hr IVPB Q8 [facility] PRN Reason: Protocol Last Admin: 09/14/17 14:42 Dose: 100 mls/hr Insulin Human Regular (Humulin R Med) 0 units SC Q6 [facility] PRN Reason: Protocol Last Admin: 09/14/17 14:40 Dose: Not Given Levalbuterol HCl (Xopenex) 0.63 mg IH [id number] [facility] Last Admin: 09/14/17 13:32 Dose: 0.63 mg Lorazepam (Ativan) 2 mg IVP Q3H PRN; Protocol PRN Reason: Agitation Last Admin: 09/14/17 10:15 Dose: 2 mg Multivitamins/Vitamin C (Multi-Delyn Liquid) 15 ml PO 0800 [facility] Last Admin: 09/14/17 10:11 Dose: 15 ml Pantoprazole Sodium (Protonix Inj) 40 mg IVP Q12 [facility] Last Admin: 09/14/17 10:11 Dose: 40 mg Thiamine HCl (Vitamin B1 Inj) 100 mg IV DAILY [facility] Last Admin: 09/14/17 10:12 Dose: 100 mg Tobramycin/Dexamethasone (Tobradex Opht Susp) 0 ml OU QID [facility] Vancomycin HCl (Vancocin 25 Mg/Ml (Oral Use)) 500 mg PO Q6 [facility] PRN Reason: Protocol Last Admin: 09/14/17 11:59 Dose: 500 mg - Labs Labs: 09/14/17 05:10 09/14/17 05:10 PT 13.4 SECONDS (9.4-12.5) H 09/12/17 06:00 INR 1.16 (0.93-1.08) H 09/12/17 06:00 APTT 34.1 Seconds (25.1-36.5) 09/12/17 06:00 Attending/Attestation - Attestation I have personally seen and examined this patient.: Yes I have fully participated in the care of the patient.: Yes I have reviewed all pertinent clinical information, including history, physical exam and plan: Yes Notes (Text): I have seen and examined the patient at bedside with the resident. Agree with the above note with the following additions/ exceptions: Briefly this is 47 year male with history of alcohol abuse, DM-2 who came initially for abdominal pain and dyspnea. He was found to be severely acidotic and had elevated lactic acid level. He was diagnosed with pancreatitis. Currently intubated. He is off sedation and pressors. He is responsive to painful stimuli however he is not able to following commands. CT head showed volume loss. CXR revealed improvement in ALMAZ infiltrate. He has leukocytosis. Procal high probably due to renal failure. Blood and urine culture negative. He continues to have diarrhea. Rectal tube is in. Continue PO vancomycin for Cdiff colitis. ID on board. He has acute kidney injury due to SIRS vs ATN. He remains oliguric. He is s/p Shiley insertion and undergoing hemodialysis. Repeat lipase level normalized. Abdomen ultrasound revealed no evidence of pancreatitis.. Echo revealed normal EF. Continue seizure precautions, keppra, thiamine, folate and MVI. EEG result normal. Elevated LFTs probably due to worsening liver failure due to shock liver/alcohol abuse. Will closely monitor Is Os. He has anemia and thrombocytopenia which can be due to alcohol induced BM suppression vs sepsis induced coagulopathy. Overall prognosis is poor. Palliative care consult pending. Dr Jeanne Daniels
[2017-09-14] MEDS: metroNIDAZOLE IV 500 mg/100 ml 500 MG/100 ML BAG IVPB SCH ×2 (14:42→22:55)
[2017-09-14] MEDS: Tobramycin/Dexamethasone (Tobradex) Opth Sol (2.5 ml) OU SCH ×2 (17:30→22:56)
[2017-09-14] MEDS ORDERED: Tobramycin/Dexamethasone (Tobradex) Opth Sol (2.5 ml) OU SCH (18:00)
[2017-09-15] MEDS: Vancomycin 25 MG/ML PO SCH ×4 (01:00→18:16)
--- NOTE | 2017-09-15 01:21 | CON ---
DATE: HISTORY OF PRESENT ILLNESS: Mr. Aguero is a 47-year-old dialysis-dependent diabetic male who I was called for a consultation for evaluation of a hemorrhage in his right eye. PHYSICAL EXAMINATION: Visual acuity cannot be obtained. He had a large subconjunctival hemorrhage in the right eye. The left eye was also injected. The rest of the exam was within normal limits. ASSESSMENT: Mr. Aguero has a subconjunctival hemorrhage in his right eye and conjunctivitis in the left eye. PLAN: I put him on TobraDex one drop, both eyes, four times a day and I instructed the resident to have the patient come to see me after discharge. Manpreet Gonzales MD
[2017-09-15] MEDS: Insulin Reg-MEDIUM-Coverage SC SCH ×4 (02:08→18:17)
[2017-09-15] MEDS: metroNIDAZOLE IV 500 mg/100 ml 500 MG/100 ML BAG IVPB SCH ×3 (05:16→21:30)
[2017-09-15 05:22] LABS: ARTERIAL BLOOD GAS HCO3 19.6 mmol/L (21-28); ARTERIAL BLOOD GAS HEMOGLOBIN 9.2 g/dL (11.7-17.4); ARTERIAL BLOOD GAS O2 CAPACITY 12.9 mL/dl (16-24); ARTERIAL BLOOD GAS O2 CONTENT 12.8 ML/dl (15-23); ARTERIAL BLOOD GAS O2 SAT 99.6 % (95-98); ARTERIAL BLOOD GAS PCO2 31 mm/Hg (35-45); ARTERIAL BLOOD GAS PH 7.41 (7.35-7.45); ARTERIAL BLOOD GAS TCO2 20.6 mmol.L (22-28)
[2017-09-15 06:10] LABS: BASO # 0.46 K/mm3 (0.0-2.0); BASO % 2.4 % (0.0-3.0); EOS # 0.1 (0.0-0.7); EOS % 0.3 % (1.5-5.0); HEMOGLOBIN 8.7 g/dL (14.0-18.0); LYMPH # 1.4 (1.2-3.4); LYMPH % 7.3 % (22.0-35.0); MEAN CELL VOLUME 93.7 fl (80.0-105.0); MEAN CORPUSCULAR HEMOGLOBIN 30.4 pg (25.0-35.0); MEAN CORPUSCULAR HGB CONC 32.5 g/dl (31.0-37.0); PLATELET COUNT 49 10^3/uL (120.0-450.0); RBC 2.86 10^6/uL (3.5-6.1); RED CELL DISTRIBUTION WIDTH 16.3 % (11.5-14.5); WHITE BLOOD COUNT 19.6 10^3/ul (4.5-11.0)
[2017-09-15 06:29] LABS: ALB/GLOB RATIO 0.9 (1.1-1.8); ALBUMIN 2.8 g/dL (3.0-4.8); CALCIUM 9.2 mg/dL (8.4-10.5); MAGNESIUM 1.8 mg/dL (1.7-2.2)
[2017-09-15] MEDS: Budesonide 0.5 mg/2 ml Inhal Susp UD IH SCH ×2 (07:10→20:18)
[2017-09-15] MEDS: Levalbuterol 0.63 MG/3 ML Inhal Soln UD IH SCH ×3 (07:10→20:17)
[2017-09-15] MEDS ORDERED: Potassium Chloride 40 mEq/30 ml LIQ UD PO ONE (07:44)
[2017-09-15] MEDS ORDERED: Potassium Phosphate 15 MMOLE in Sodium Chloride 0.9% 250 ML IVPB ONE (07:45)
--- NOTE | 2017-09-15 07:45 | CP.PCM.PN ---
<Mayra Trejo - Last Filed: 09/15/17 14:55> Subjective - Date & Time of Evaluation Date of Evaluation: 09/15/17 Time of Evaluation: 07:15 - Subjective Subjective: PGY2 Medicine note for Dr. Daniels Patient seen and examined at bedside. Nursing reports patient's blood pressure was elevated overnight. Remains off sedation- intubated on vent (450, 27, 40, 10). Patient's feeds remain on hold. Patient is not making good urine but still has output in rectal tube. Mentation unchanged- remains arousable to but is not awake and alert. ROS unobtainable due to critical condition. Objective - Vital Signs/Intake and Output Vital Signs (last 24 hours): Temp Pulse Resp BP Pulse Ox 98.5 F 110 H 26 H 175/112 H 99 09/14/17 04:00 09/14/17 23:47 09/14/17 14:11 09/14/17 23:47 09/14/17 23:47 Intake and Output: 09/15/17 09/15/17 06:59 18:59 Intake Total 460 Output Total 1950 Balance -1490 - Medications Medications: Current Medications Artificial Tears (Refresh Opth Soln) 0.3 ml OU Q12 PRN PRN Reason: Dry eyes Budesonide (Pulmicort Respules) 0.5 mg IH [id number] [facility] Last Admin: 09/15/17 07:10 Dose: 0.5 mg Folic Acid (Folic Acid) 1 mg NG DAILY [facility] Levetiracetam 1,000 mg/ Sodium (Chloride) 110 mls @ 460 mls/hr IV Q12 [facility] Last Admin: 09/14/17 22:46 Dose: 460 mls/hr Propofol (Diprivan) 1,000 mg in 100 mls @ 2.062 mls/hr IV .Q24H PRN; Protocol; 5 MCG/KG/MIN PRN Reason: TITRATE PER MD ORDER Last Admin: 09/13/17 06:47 Dose: 40 mcg/kg/min, 16.493 mls/hr Metronidazole (Flagyl) 500 mg in 100 mls @ 100 mls/hr IVPB Q8 [facility] PRN Reason: Protocol Last Admin: 09/15/17 05:16 Dose: 100 mls/hr Insulin Human Regular (Humulin R Med) 0 units SC Q6 [facility]IA PRN Reason: Protocol Last Admin: 09/15/17 02:08 Dose: Not Given Levalbuterol HCl (Xopenex) 0.63 mg IH [id number] [facility] Last Admin: 09/15/17 07:10 Dose: 0.63 mg Lorazepam (Ativan) 2 mg IVP Q3H PRN; Protocol PRN Reason: Agitation Last Admin: 09/14/17 10:15 Dose: 2 mg Multivitamins/Vitamin C (Multi-Delyn Liquid) 15 ml PO 0800 [facility] Last Admin: 09/14/17 10:11 Dose: 15 ml Pantoprazole Sodium (Protonix Inj) 40 mg IVP Q12 [facility] Last Admin: 09/14/17 22:51 Dose: 40 mg Potassium Chloride (Potassium Chloride Oral Soln) 40 meq PO ONCE ONE Stop: 09/15/17 07:45 Thiamine HCl (Vitamin B1 Inj) 100 mg IV DAILY [facility] Last Admin: 09/14/17 10:12 Dose: 100 mg Tobramycin/Dexamethasone (Tobradex Opht Susp) 0 ml OU QID [facility] Last Admin: 09/14/17 22:56 Dose: 1 drop Vancomycin HCl (Vancocin 25 Mg/Ml (Oral Use)) 500 mg PO Q6 [facility] PRN Reason: Protocol Last Admin: 09/15/17 07:33 Dose: 500 mg - Labs Labs: 09/15/17 05:50 09/15/17 05:50 PT 13.4 SECONDS (9.4-12.5) H 09/12/17 06:00 INR 1.16 (0.93-1.08) H 09/12/17 06:00 APTT 34.1 Seconds (25.1-36.5) 09/12/17 06:00 - Constitutional Appears: Chronically Ill - Head Exam Head Exam: ATRAUMATIC, NORMAL INSPECTION, NORMOCEPHALIC - Eye Exam Eye Exam: Conjunctival injection, PERRL - ENT Exam ENT Exam: Mucous Membranes Dry Additional comments: ET tube in place - Respiratory Exam Additional comments: intubated on vent- failed PS trial - Cardiovascular Exam Cardiovascular Exam: Tachycardia, REGULAR RHYTHM, +S1, +S2 - GI/Abdominal Exam GI & Abdominal Exam: Distended, Soft, Normal Bowel Sounds. absent: Tenderness - Rectal Exam Additional comments: rectal tube in place - Extremities Exam Extremities Exam: Pedal Edema - Neurological Exam Neurological Exam: absent: Alert, Awake, Oriented x3 - Skin Skin Exam: Dry Additional comments: bullae on left dorsal surface of left hand Assessment and Plan - Assessment and Plan (Free Text) Assessment: 47yo M with a PMH of DM2, HTN and alcohol use who presented with URI symptoms such as cough, shortness of breath, palpitations. Last alcoholic drink was night prior to admission. Patient was admitted for septic shock (with lactate of 7.7 on presentation), high anion gap metabolic acidosis, acute pancreatitis 2 /2 ETOH vs triglycerides, IRWIN vs CKD, elevated LFTs likely 2/2 ETOH, elevated BNP, hyponatremia, and hypokalemia. s/p cardiac arrest and ROSC. Upon ROSC, patient vomited and likely aspirated, but was turned to the side and suctioned. Intubated and on vent with sedation in ICU. Patient intially required pressors to maintain BP but is no longer needing them. Remains on Keppra for seizure ppx. IRWIN worsened, so patient required temporary dialysis. Liver enzymes are improving. Lipase trending down so pancreatitis improving. Plan: 1. Septic shock - continue ICU monitoring due to unstable vitals and altered mental state - Lipase and Amylase were elevated indicating pancreatitis 2/2 ETOH vs TG (>1000 )- normalized - tube feeds on hold - tylenol supp PRN - blood, urine, trachea cultures showed no growth - stool cultures indicating cdiff +Ag/-Toxin; - start IV flagyl for diarrhea and continue PO Vanc - Monitor vitals - Maintain MAP > 65 - CT Findings on admission are concerning for acute pancreatitis w/o ductal dilatation, calcifications or pseudocyst. alcoholic liver steatosis - ID consulted for management of septic shock, recs appreciated - GI consulted for alcoholic pancreatitis and +stool occult blood, recs appreciated - Surgery consulted for abdominal distention and for trach/peg placement, recs appreciated - Palliative care consulted for advanced directives, [facility] 2. AMS 2/2 Anion gap metabolic acidosis likely 2/2 lactic acidosis and ETOH - s/p cardiac arrest 09/08 - CT Head showed no acute intracranial abnormalities and mild chronic microangiopathic changes, w/ moderate global parencyhmal volume loss - patient was intubated to protect airway due to hypoxemia and vomiting to reduce risk of aspiration; daily vent weaning trials - ativan prn agitation added - Maintain SaO2 > 90% - TSH and A1C WNL - EEG was normal - cont Keppra for seizure ppx - Neurology consulted, recs appreciated - Cardiology consulted, recs appreciated 3. IRWIN vs CKD a/w Hypophosphatemia - temp dialysis catheter placed - started on TD clonidine for HTN management -Nephro will see patient today to determine if he requires HD today - FENa 3.2 indicating ATN - given septic shock, likely component of pre-renal and intrinsic ischemic ATN ( coarse granular casts seen on UA) - avoid nephrotoxins - Nephrology consulted, recs appreciated 4. 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 Transaminitis likely w/ underlying liver disease, improving - likely 2/2 shock liver and chronic ETOH use since INR is elevated - hepatitis panel negative - HIV pending - continue to monitor Discussed with Dr. Frances Trejo PGY2 <Jeanne Daniels - Last Filed: 09/15/17 15:33> Objective - Vital Signs/Intake and Output Vital Signs (last 24 hours): Temp Pulse Resp BP Pulse Ox 98.5 F 108 H 26 H 181/100 H 99 09/14/17 04:00 09/15/17 14:50 09/14/17 14:11 09/15/17 14:50 09/14/17 23:47 Intake and Output: 09/15/17 09/15/17 06:59 18:59 Intake Total 460 Output Total 1950 Balance -1490 - Medications Medications: Current Medications Artificial Tears (Refresh Opth Soln) 0.3 ml OU Q12 PRN PRN Reason: Dry eyes Budesonide (Pulmicort Respules) 0.5 mg IH [id number] [facility] Last Admin: 09/15/17 07:10 Dose: 0.5 mg Clonidine HCl (Catapres Tts1 0.1 Mg/24 Hr) 1 patch TD Q7D@1000 [facility] Last Admin: 09/15/17 14:50 Dose: 1 patch Folic Acid (Folic Acid) 1 mg NG DAILY [facility] Last Admin: 09/15/17 09:40 Dose: 1 mg Levetiracetam 1,000 mg/ Sodium (Chloride) 110 mls @ 460 mls/hr IV Q12 [facility] Last Admin: 09/15/17 09:44 Dose: 460 mls/hr Propofol (Diprivan) 1,000 mg in 100 mls @ 2.062 mls/hr IV .Q24H PRN; Protocol; 5 MCG/KG/MIN PRN Reason: TITRATE PER MD ORDER Last Admin: 09/13/17 06:47 Dose: 40 mcg/kg/min, 16.493 mls/hr Metronidazole (Flagyl) 500 mg in 100 mls @ 100 mls/hr IVPB Q8 [facility] PRN Reason: Protocol Last Admin: 09/15/17 13:30 Dose: 100 mls/hr Insulin Human Regular (Humulin R Med) 0 units SC Q6 [facility] PRN Reason: Protocol Last Admin: 09/15/17 13:25 Dose: Not Given Levalbuterol HCl (Xopenex) 0.63 mg IH [id number] [facility] Last Admin: 09/15/17 13:20 Dose: 0.63 mg Lorazepam (Ativan) 2 mg IVP Q3H PRN; Protocol PRN Reason: Agitation Last Admin: 09/14/17 10:15 Dose: 2 mg Multivitamins/Vitamin C (Multi-Delyn Liquid) 15 ml PO 0800 [facility] Last Admin: 09/15/17 08:36 Dose: 15 ml Pantoprazole Sodium (Protonix Inj) 40 mg IVP Q12 [facility] Last Admin: 09/15/17 09:40 Dose: 40 mg Thiamine HCl (Vitamin B1 Inj) 100 mg IV DAILY [facility] Last Admin: 09/15/17 09:44 Dose: 100 mg Tobramycin/Dexamethasone (Tobradex Opht Susp) 0 ml OU QID [facility] Last Admin: 09/15/17 13:28 Dose: 1 drop Vancomycin HCl (Vancocin 25 Mg/Ml (Oral Use)) 500 mg PO Q6 [facility] PRN Reason: Protocol Last Admin: 09/15/17 07:33 Dose: 500 mg - Labs Labs: 09/15/17 05:50 09/15/17 05:50 PT 13.4 SECONDS (9.4-12.5) H 09/12/17 06:00 INR 1.16 (0.93-1.08) H 09/12/17 06:00 APTT 34.1 Seconds (25.1-36.5) 09/12/17 06:00 Attending/Attestation - Attestation I have personally seen and examined this patient.: Yes I have fully participated in the care of the patient.: Yes I have reviewed all pertinent clinical information, including history, physical exam and plan: Yes Notes (Text): I have seen and examined the patient at bedside with the resident. Agree with the above note with the following additions/ exceptions: Briefly this is 47 year male with history of alcohol abuse, DM-2 who came initially for abdominal pain and dyspnea. He was found to be severely acidotic and had elevated lactic acid level. He was diagnosed with pancreatitis. Currently intubated. He is off sedation and pressors. He is responsive to painful stimuli however he is not able to follow commands. CT head showed volume loss. CXR revealed improvement in ALMAZ infiltrate. He has leukocytosis. Procal high probably due to renal failure. Blood and urine culture negative. He continues to have diarrhea. Rectal tube is in. Continue PO vancomycin and flagyl for Cdiff colitis. ID on board. He has acute kidney injury due to SIRS vs ATN. He remains oliguric. He is s/p Shiley insertion and undergoing hemodialysis on daily basis. Repeat lipase level normalized. Abdomen ultrasound revealed no evidence of pancreatitis. As he has high residuals feeding was held. Echo revealed normal EF. Continue seizure precautions, keppra, thiamine, folate and MVI. EEG result normal. Elevated LFTs probably due to worsening liver failure due to shock liver /alcohol abuse. Will closely monitor Is Os. He has anemia and thrombocytopenia which can be due to alcohol induced BM suppression vs sepsis induced coagulopathy. He was given 3 units of platelets. Overall prognosis is poor. Palliative care consult pending. Dr Jeanne Daniels
[2017-09-15] MEDS: Multi Vitamins 15 mL UD Oral Solution PO SCH (08:36)
[2017-09-15] MEDS: levETIRAcetam 1,000 MG in Sodium Chloride 0.9% 100 ML IV SCH ×2 (09:44→21:30)
[2017-09-15] MEDS: Thiamine 100 mg/ml Inj IV SCH (09:44)
[2017-09-15] MEDS: Tobramycin/Dexamethasone (Tobradex) Opth Sol (2.5 ml) OU SCH ×3 (10:00→18:17)
--- NOTE | 2017-09-15 10:22 | PN ---
DATE: 09/15/2017 CORRESPONDENCE REVIEW CLERK NOTE SUBJECTIVE: The patient is unresponsive on the ventilator with FiO2 of 40%. The patient is post CPR on admission and at this time is being treated for sepsis and pneumonia and has post-CPR encephalopathy. PHYSICAL EXAMINATION VITAL SIGNS: Note that his temperature is 98.5, pulse is 110, respirations are 18, BP is 175/112. SKIN: Warm and dry. HEENT: Head: Atraumatic, normocephalic. Eyes: Sluggishly reactive to light. Ears, nose and throat seem to be within normal limits. NECK: Supple. No JVD. No thyroid enlargement. No lymph nodes. HEART: Has regular rate and rhythm. Normal S1, S2, but tachycardic. LUNGS: Reveal bilateral rhonchi. ABDOMEN: Decreased bowel sounds, but soft, but slightly distended. GENITALIA AND RECTAL: Deferred. MUSCULOSKELETAL: No joint deformities. EXTREMITIES: Reveal positive edema, upper and lower extremity. NEUROLOGIC: The patient is unresponsive on the ventilator. LABORATORY DATA: As far as his laboratories are concerned, his white count is 19.6, hemoglobin is 8.7, his hematocrit is 26.8, with platelets of 49,000. The patient's arterial blood gas reveals a pH of 7.41, pCO2 of 31, pO2 of 154. His sodium is 139, potassium 3.2, chloride 101, CO2 of 20 with a BUN of 47, creatinine of 3.5 and a glucose of 296. The patient's chest x-ray reveals that there is left upper lobe pneumonia. IMPRESSION: As far as my impression, this patient has respiratory failure with acute respiratory distress syndrome/left upper lobe pneumonia requiring ventilator support. The patient has a history of acute pancreatitis as well as ethyl alcohol abuse and has diabetes, end-stage renal disease on hemodialysis, anemia, thrombocytopenia and carries a diagnosis of hypertension. PLAN: As far as our plan, we will continue to support the patient with ventilator and continue with vent weaning trials. We will continue with metronidazole IV. The patient is getting Keppra as well as insulin and folic acid. He continues to require the multivitamins as well. The patient is getting propofol for sedation and is on Xopenex and Pulmicort via nebulizer. He continues with the vancomycin as far as IV antibiotics and is getting thiamine as well. We will continue to treat aggressively along with the other consultants and the primary care doctor. Gabe Mcdowell MD
[2017-09-15 10:54] LABS: ATYPICAL LYMPHOCYTE 3 % (0.0-0.0); BAND 25 % (0-2); MONOCYTE 10 % (1.0-6.0)
[2017-09-15 10:55] LABS: EOSINOPHIL 2 % (0.0-3.0); MYELOCYTE 1 %
[2017-09-15 10:56] LABS: LYMPHOCYTE 12 % (22.0-35.0)
[2017-09-15 10:58] LABS: METAMYELOCYTE 2 %; NEUTROPHIL 45 % (50.0-70.0)
[2017-09-15 10:59] LABS: HYPOCHROMIA SLIGHT; PLATELET ESTIMATE LOW (NORMAL)
--- NOTE | 2017-09-15 19:15 | PN ---
DATE: SUBJECTIVE: The patient is in bed, in no acute distress. PHYSICAL EXAMINATION: VITAL SIGNS: Patient remains intubated on a ventilator, with a temperature of 98, blood pressure is 175/112, respiratory rate on the vent, heart rate of 110. HEENT: Reveals ET tube in place. NECK: Supple. LUNGS: Decreased breath sounds. HEART: Normal S1 and S2. ABDOMEN: Soft. LABORATORY DATA: Reveals the patient's white count is up to 19,600, hemoglobin of 8, platelets of 49,000. BUN of 47, creatinine of 3.5, procalcitonin is 1.6. LFTs are noted. Blood cultures, C. diff antigen is positive, toxin is negative. Initial cultures are negative. Patient is on p.o. vancomycin, IV Flagyl. Patient had a chest x-ray yesterday, improvement in the left upper lobe. ASSESSMENT AND PLAN: This is a 47-year-old male with systemic inflammatory response syndrome, ventilator dependent respiratory failure with severe sepsis, renal failure, pseudomembranous colitis, alcoholic pancreatitis, thrombocytopenia, alcoholic liver disease with increasing leukocytosis. We will repeat pancultures, blood, urine, sputum, and urinalysis, procalcitonin. We will follow closely with you. Jason Oreilly MD
[2017-09-16] MEDS: Propofol 10 mg/ml 1,000 MG/100 ML VIAL IV PRN ×4 (00:17→19:12)
[2017-09-16] MEDS: Levalbuterol 0.63 MG/3 ML Inhal Soln UD IH SCH ×4 (02:27→19:35)
[2017-09-16] MEDS: Insulin Reg-MEDIUM-Coverage SC SCH ×2 (06:29)
[2017-09-16] MEDS: metroNIDAZOLE IV 500 mg/100 ml 500 MG/100 ML BAG IVPB SCH ×3 (06:33→22:49)
[2017-09-16 06:38] LABS: ARTERIAL BLOOD GAS HCO3 15.8 mmol/L (21-28); ARTERIAL BLOOD GAS O2 CAPACITY 19.4 mL/dl (16-24); ARTERIAL BLOOD GAS O2 CONTENT 19.3 ML/dl (15-23); ARTERIAL BLOOD GAS O2 SAT 99.7 % (95-98); ARTERIAL BLOOD GAS PCO2 25 mm/Hg (35-45); ARTERIAL BLOOD GAS PH 7.41 (7.35-7.45); ARTERIAL BLOOD GAS TCO2 16.6 mmol.L (22-28)
--- NOTE | 2017-09-16 06:39 | CP.PCM.PN ---
Subjective - Date & Time of Evaluation Date of Evaluation: 09/16/17 Time of Evaluation: 06:37 - Subjective Subjective: Mr. Aguero was seen and examined at the bedside in the ICU. He remains responsive to tactile stimuli. He remains on mechanical ventilator on PRVC mode , with GCS-4T with positive gag reflex, and corneal reflex, sluggish pupils to light accommodation.He has episode of restlessness associated with elevated blood pressure. Sedation was re-started last night, currently, blood pressure 112/84, HR-81. He also has bilateral wrist restraint for patient safety. He remains with bilateral lower extremities SCD's. The latest EEG showed no seizure activity. Objective - Vital Signs/Intake and Output Vital Signs (last 24 hours): Temp Pulse Resp BP Pulse Ox 98.5 F 85 26 H 112/65 96 09/14/17 04:00 09/16/17 05:59 09/14/17 14:11 09/16/17 06:00 09/16/17 05:59 Intake and Output: 09/15/17 09/16/17 18:59 06:59 Intake Total 200 100 Output Total 500 Balance -300 100 - Medications Medications: Current Medications Artificial Tears (Refresh Opth Soln) 0.3 ml OU Q12 PRN PRN Reason: Dry eyes Budesonide (Pulmicort Respules) 0.5 mg IH [id number] [facility] Last Admin: 09/15/17 20:18 Dose: 0.5 mg Clonidine HCl (Catapres Tts1 0.1 Mg/24 Hr) 1 patch TD Q7D@1000 [facility] Last Admin: 09/15/17 14:50 Dose: 1 patch Folic Acid (Folic Acid) 1 mg NG DAILY [facility] Last Admin: 09/15/17 09:40 Dose: 1 mg Hydralazine HCl (Apresoline) 10 mg IVP Q6 PRN PRN Reason: BP> 180 Last Admin: 09/15/17 22:36 Dose: 10 mg Levetiracetam 1,000 mg/ Sodium (Chloride) 110 mls @ 460 mls/hr IV Q12 [facility] Last Admin: 09/15/17 21:30 Dose: 460 mls/hr Propofol (Diprivan) 1,000 mg in 100 mls @ 2.062 mls/hr IV .Q24H PRN; Protocol; 5 MCG/KG/MIN PRN Reason: TITRATE PER MD ORDER Last Admin: 09/16/17 06:31 Dose: 40 mcg/kg/min, 16.493 mls/hr Metronidazole (Flagyl) 500 mg in 100 mls @ 100 mls/hr IVPB Q8 [facility] PRN Reason: Protocol Last Admin: 09/16/17 06:33 Dose: 100 mls/hr Insulin Human Regular (Humulin R Med) 0 units SC Q6 [facility] PRN Reason: Protocol Last Admin: 09/16/17 06:29 Dose: 7 units Levalbuterol HCl (Xopenex) 0.63 mg IH [id number] [facility] Last Admin: 09/16/17 02:27 Dose: 0.63 mg Lorazepam (Ativan) 2 mg IVP Q3H PRN; Protocol PRN Reason: Agitation Last Admin: 09/14/17 10:15 Dose: 2 mg Multivitamins/Vitamin C (Multi-Delyn Liquid) 15 ml PO 0800 [facility] Last Admin: 09/15/17 08:36 Dose: 15 ml Pantoprazole Sodium (Protonix Inj) 40 mg IVP Q12 [facility] Last Admin: 09/15/17 21:31 Dose: 40 mg Thiamine HCl (Vitamin B1 Inj) 100 mg IV DAILY [facility] Last Admin: 09/15/17 09:44 Dose: 100 mg Tobramycin/Dexamethasone (Tobradex Opht Susp) 0 ml OU QID [facility] Last Admin: 09/15/17 18:17 Dose: 1 drop Vancomycin HCl (Vancocin 25 Mg/Ml (Oral Use)) 500 mg PO Q6 [facility] PRN Reason: Protocol Last Admin: 09/15/17 18:16 Dose: 500 mg - Labs Labs: 09/15/17 05:50 09/15/17 05:50 PT 13.4 SECONDS (9.4-12.5) H 09/12/17 06:00 INR 1.16 (0.93-1.08) H 09/12/17 06:00 APTT 34.1 Seconds (25.1-36.5) 09/12/17 06:00 - Constitutional Appears: No Acute Distress - Head Exam Head Exam: NORMAL INSPECTION - Neurological Exam Neurological Exam: Awake Neuro motor strength exam: Left Upper Extremity: 4, Right Upper Extremity: 4, Left Lower Extremity: 4, Right Lower Extremity: 4 Additional comments: GCS-4T Assessment and Plan (1) Seizure Assessment & Plan: Case discussed with Dr. Reynolds, continue all current medical regimen including AED's. There is no new recommendations from neurology. Status: Acute
[2017-09-16] MEDS: Vancomycin 25 MG/ML PO SCH ×3 (06:53→19:07)
[2017-09-16] MEDS: Budesonide 0.5 mg/2 ml Inhal Susp UD IH SCH ×2 (07:08→19:35)
[2017-09-16 07:23] LABS: ALB/GLOB RATIO 0.9 (1.1-1.8); ALBUMIN 2.7 g/dL (3.0-4.8); CALCIUM 9.4 mg/dL (8.4-10.5); MAGNESIUM 1.9 mg/dL (1.7-2.2)
[2017-09-16] MEDS ORDERED: Vancomycin 500mg in NS 500 MG/100 ML BAG IVPB STA (08:17)
--- NOTE | 2017-09-16 09:09 | CP.PCM.PN ---
Subjective - Date & Time of Evaluation Date of Evaluation: 09/16/17 Time of Evaluation: 07:00 - Subjective Subjective: Patient seen and examined at bedside. Patient still minimally reponsive. Vent settings 450TV/27RR/35%/10PEEP. No output through the [facility] recorded. Will get consent from family for the trach/gastrostomy tube tomorrow. Objective - Vital Signs/Intake and Output Vital Signs (last 24 hours): Temp Pulse Resp BP Pulse Ox 98.5 F 91 H 27 H 153/88 H 93 L 09/14/17 04:00 09/16/17 08:45 09/16/17 07:04 09/16/17 08:45 09/16/17 08:45 Intake and Output: 09/16/17 09/16/17 06:59 18:59 Intake Total 396 Output Total 350 Balance 46 - Medications Medications: Current Medications Artificial Tears (Refresh Opth Soln) 0.3 ml OU Q12 PRN PRN Reason: Dry eyes Budesonide (Pulmicort Respules) 0.5 mg IH [id number] [facility] Last Admin: 09/16/17 07:08 Dose: 0.5 mg Clonidine HCl (Catapres Tts1 0.1 Mg/24 Hr) 1 patch TD Q7D@1000 [facility] Last Admin: 09/15/17 14:50 Dose: 1 patch Folic Acid (Folic Acid) 1 mg NG DAILY [facility] Last Admin: 09/15/17 09:40 Dose: 1 mg Hydralazine HCl (Apresoline) 10 mg IVP Q6 PRN PRN Reason: BP> 180 Last Admin: 09/15/17 22:36 Dose: 10 mg Levetiracetam 1,000 mg/ Sodium (Chloride) 110 mls @ 460 mls/hr IV Q12 [facility] Last Admin: 09/15/17 21:30 Dose: 460 mls/hr Propofol (Diprivan) 1,000 mg in 100 mls @ 2.062 mls/hr IV .Q24H PRN; Protocol; 5 MCG/KG/MIN PRN Reason: TITRATE PER MD ORDER Last Admin: 09/16/17 06:31 Dose: 40 mcg/kg/min, 16.493 mls/hr Metronidazole (Flagyl) 500 mg in 100 mls @ 100 mls/hr IVPB Q8 [facility] PRN Reason: Protocol Last Admin: 09/16/17 06:33 Dose: 100 mls/hr Meropenem 250 mg/ Sodium (Chloride) 100 mls @ 100 mls/hr IVPB Q12H [facility] PRN Reason: Protocol Stop: 09/16/17 09:29 Insulin Human Regular (Humulin R Med) 0 units SC Q6 [facility] PRN Reason: Protocol Last Admin: 09/16/17 06:29 Dose: 7 units Levalbuterol HCl (Xopenex) 0.63 mg IH [id number] [facility] Last Admin: 09/16/17 07:08 Dose: 0.63 mg Lorazepam (Ativan) 2 mg IVP Q3H PRN; Protocol PRN Reason: Agitation Last Admin: 09/14/17 10:15 Dose: 2 mg Multivitamins/Vitamin C (Multi-Delyn Liquid) 15 ml PO 0800 [facility] Last Admin: 09/15/17 08:36 Dose: 15 ml Pantoprazole Sodium (Protonix Inj) 40 mg IVP Q12 [facility] Last Admin: 09/15/17 21:31 Dose: 40 mg Thiamine HCl (Vitamin B1 Inj) 100 mg IV DAILY [facility] Last Admin: 09/15/17 09:44 Dose: 100 mg Tobramycin/Dexamethasone (Tobradex Opht Susp) 0 ml OU QID [facility] Last Admin: 09/15/17 18:17 Dose: 1 drop Vancomycin HCl (Vancocin 25 Mg/Ml (Oral Use)) 500 mg PO Q6 [facility] PRN Reason: Protocol Last Admin: 09/16/17 06:53 Dose: 500 mg - Labs Labs: 09/15/17 05:50 09/16/17 06:00 PT 13.4 SECONDS (9.4-12.5) H 09/12/17 06:00 INR 1.16 (0.93-1.08) H 09/12/17 06:00 APTT 34.1 Seconds (25.1-36.5) 09/12/17 06:00 - Constitutional Appears: No Acute Distress, Older Than Stated Age - Head Exam Head Exam: ATRAUMATIC, NORMOCEPHALIC - ENT Exam Additional comments: ETT and OGT in place - Neck Exam Neck Exam: Normal Inspection - Respiratory Exam Respiratory Exam: Rhonchi. absent: Accessory Muscle Use, Rales, Wheezes Additional comments: mechanically ventilated - Cardiovascular Exam Cardiovascular Exam: Tachycardia, REGULAR RHYTHM - GI/Abdominal Exam GI & Abdominal Exam: Distended, Soft. absent: Rigid - Extremities Exam Extremities Exam: Pedal Edema Additional comments: BL 1+ UE edema - Neurological Exam Additional comments: Currently sedated, GCS E1, VT, M4 - Psychiatric Exam Additional comments: sedated, unresponsive Assessment and Plan - Assessment and Plan (Free Text) Assessment: 47M with respiratory failure with continued dependence on mechanical ventilation. Dysphagia d/t poor mental status Plan: -tracheostomy in coordination with GI for gastrostomy tube tomorrow. Pending tolerance of PEEP of 5, glucose control, and adequate cardiac risk assessment -NPO aftermidnight -Continue current management per ICU -AM CBC, CMP, PT, PTT, TYPE AND SCREEN Discussed with Dr. Pablo, further recs per him Nimo Underwood, PGY2
[2017-09-16] MEDS: levETIRAcetam 1,000 MG in Sodium Chloride 0.9% 100 ML IV SCH ×2 (09:20→22:53)
[2017-09-16] MEDS: Tobramycin/Dexamethasone (Tobradex) Opth Sol (2.5 ml) OU SCH ×5 (09:30→23:28)
[2017-09-16] MEDS ORDERED: Potassium Chloride 40 mEq/30 ml LIQ UD PO ONE (10:00)
[2017-09-16] MEDS: Multi Vitamins 15 mL UD Oral Solution PO SCH (10:17)
[2017-09-16] MEDS: Thiamine 100 mg/ml Inj IV SCH (10:17)
--- NOTE | 2017-09-16 10:18 | CP.PCM.PN ---
Subjective - Date & Time of Evaluation Date of Evaluation: 09/15/17 Time of Evaluation: 15:00 - Subjective Subjective: Please call us @ [phone] if any qs or concerns. thank you renal follow up note Assessment: critical Acute Kidney Injury (N17.9) likely due to pre-renal state, SIRS, Acute tubular necrosis Hyponatermia, hypokalemia DM, HTN, chronic alcoholism, hepatic dysfunction acute pancreatitis HAGMA with lactic acidosis + alcohol ketoacidosis and starvation ketoacidosis Thrombocytopenia Hypomagnesemia, hypophosphatemia s/p cardiac arrest, seizure ARDS Plan isolated UF today to help with vent weaning lytes reviewed anemia stable monitor phos levels, replace if low S: seen and examined remains intubated and sedated Physical Examination: General Appearance: ill appearing. on vent Vitals reviewed and noted as below Head; Atraumatic, normocephalic ENT: intubated Neck; supple Lungs: Increased respiratory rate/effort. mechanical bs Heart: Increased rate. s1s2 normal. No rub or gallop. Extremities: 1+ edema. No varicose veins Neurological: Patient is sedated Skin: Warm and dry. Abdomen: Abdomen is soft. Bowel sounds decreased has rectal tube Psych: unable to assess MSK: no joint tenderness Objective - Vital Signs/Intake and Output Vital Signs (last 24 hours): Temp Pulse Resp BP Pulse Ox 98.5 F 91 H 27 H 153/88 H 93 L 09/14/17 04:00 09/16/17 08:45 09/16/17 07:04 09/16/17 08:45 09/16/17 08:45 Intake and Output: 09/16/17 09/16/17 06:59 18:59 Intake Total 396 Output Total 350 Balance 46 - Medications Medications: Current Medications Artificial Tears (Refresh Opth Soln) 0.3 ml OU Q12 PRN PRN Reason: Dry eyes Budesonide (Pulmicort Respules) 0.5 mg IH [id number] [facility] Last Admin: 09/16/17 07:08 Dose: 0.5 mg Clonidine HCl (Catapres Tts1 0.1 Mg/24 Hr) 1 patch TD Q7D@1000 [facility] Last Admin: 09/15/17 14:50 Dose: 1 patch Folic Acid (Folic Acid) 1 mg NG DAILY [facility] Last Admin: 02/03/18 09:40 Dose: 1 mg Hydralazine HCl (Apresoline) 10 mg IVP Q6 PRN PRN Reason: BP> 180 Last Admin: 09/15/17 22:36 Dose: 10 mg Levetiracetam 1,000 mg/ Sodium (Chloride) 110 mls @ 460 mls/hr IV Q12 [facility] Last Admin: 09/16/17 09:20 Dose: 460 mls/hr Propofol (Diprivan) 1,000 mg in 100 mls @ 2.062 mls/hr IV .Q24H PRN; Protocol; 5 MCG/KG/MIN PRN Reason: TITRATE PER MD ORDER Last Admin: 09/16/17 06:31 Dose: 40 mcg/kg/min, 16.493 mls/hr Metronidazole (Flagyl) 500 mg in 100 mls @ 100 mls/hr IVPB Q8 [facility] PRN Reason: Protocol Last Admin: 09/16/17 06:33 Dose: 100 mls/hr Insulin Human Lispro (Humalog High) 0 units SC ACHS [facility] PRN Reason: Protocol Levalbuterol HCl (Xopenex) 0.63 mg IH [id number] [facility] Last Admin: 09/16/17 07:08 Dose: 0.63 mg Lorazepam (Ativan) 2 mg IVP Q3H PRN; Protocol PRN Reason: Agitation Last Admin: 09/14/17 10:15 Dose: 2 mg Multivitamins/Vitamin C (Multi-Delyn Liquid) 15 ml PO 0800 [facility] Last Admin: 09/15/17 08:36 Dose: 15 ml Pantoprazole Sodium (Protonix Inj) 40 mg IVP Q12 [facility] Last Admin: 09/15/17 21:31 Dose: 40 mg Thiamine HCl (Vitamin B1 Inj) 100 mg IV DAILY [facility] Last Admin: 09/15/17 09:44 Dose: 100 mg Tobramycin/Dexamethasone (Tobradex Opht Susp) 0 ml OU QID [facility] Last Admin: 09/16/17 09:30 Dose: 1 drop Vancomycin HCl (Vancocin 25 Mg/Ml (Oral Use)) 500 mg PO Q6 [facility] PRN Reason: Protocol Last Admin: 09/16/17 06:53 Dose: 500 mg - Labs Labs: 09/15/17 05:50 09/16/17 06:00 PT 13.4 SECONDS (9.4-12.5) H 01/31/18 06:00 INR 1.16 (0.93-1.08) H 09/12/17 06:00 APTT 34.1 Seconds (25.1-36.5) 09/12/17 06:00
--- NOTE | 2017-09-16 10:39 | PN ---
DATE: SUBJECTIVE: The patient is seen in bed, in no acute distress, nontoxic. OBJECTIVE: VITAL SIGNS: On exam, temperature is 98; blood pressure is 112/60; respiratory rate, on a vent. HEENT: Examination reveals ET tube is in place. NECK: Supple. LUNGS: Have decreased breath sounds. HEART: Normal S1, S2. ABDOMEN: Soft, nontender. DATA: Laboratory examination reveals the patient's white count from yesterday is up to 19,000 with 25% bandemia, hemoglobin of 8, platelets of 49,000. Chemistries reveal a BUN of 62, creatinine is 4.2, alkaline phosphatase is 157. Microbiology reveals the blood cultures are negative from the and stool for C. diff antigen is positive. The toxin is negative. Review of orders reveals the repeat blood cultures are pending. Urine cultures and sputum cultures are pending. The patient is currently on Flagyl and p.o. vancomycin. ASSESSMENT AND PLAN: A 47-year-old male with systemic inflammatory response syndrome, ventilatory dependent respiratory failure, severe sepsis, renal failure, pseudomembranous colitis, alcoholic pancreatitis, thrombocytopenia, alcoholic liver disease and now with increasing leukocytosis. Awaiting for repeat blood cultures, urine cultures, urinalysis and we will empirically give dose of vancomycin and start the patient on meropenem. The patient with leukocytosis and bandemia. Both meropenem and vancomycin will be adjusted for the renal failure. Overall prognosis quite poor. Jason Oreilly MD
--- NOTE | 2017-09-16 11:40 | CP.PCM.PN ---
<Mayra Trejo - Last Filed: 09/16/17 11:37> Subjective - Date & Time of Evaluation Date of Evaluation: 09/16/17 Time of Evaluation: 10:00 - Subjective Subjective: PGY2 Medicine note for Dr. Daniels Patient seen and examined at bedside. Patient had HD yesterday. Restarted on diprivan gtt. Remains intubated on vent (patient's blood pressure was elevated overnight. Remains off sedation- intubated on vent (450, 27, 35, 5). Restarted on feeds with minimal residual. Mentation unchanged- remains arousable to but is not awake and alert. ROS unobtainable due to critical condition. Objective - Vital Signs/Intake and Output Vital Signs (last 24 hours): Temp Pulse Resp BP Pulse Ox 98.5 F 91 H 27 H 153/88 H 93 L 09/14/17 04:00 09/16/17 08:45 09/16/17 07:04 09/16/17 08:45 09/16/17 08:45 Intake and Output: 09/16/17 09/16/17 06:59 18:59 Intake Total 396 Output Total 350 Balance 46 - Medications Medications: Current Medications Artificial Tears (Refresh Opth Soln) 0.3 ml OU Q12 PRN PRN Reason: Dry eyes Budesonide (Pulmicort Respules) 0.5 mg IH [id number] [facility] Last Admin: 09/16/17 07:08 Dose: 0.5 mg Clonidine HCl (Catapres Tts1 0.1 Mg/24 Hr) 1 patch TD Q7D@1000 [facility] Last Admin: 09/15/17 14:50 Dose: 1 patch Folic Acid (Folic Acid) 1 mg NG DAILY [facility] Last Admin: 09/16/17 10:17 Dose: 1 mg Hydralazine HCl (Apresoline) 10 mg IVP Q6 PRN PRN Reason: BP> 180 Last Admin: 09/15/17 22:36 Dose: 10 mg Levetiracetam 1,000 mg/ Sodium (Chloride) 110 mls @ 460 mls/hr IV Q12 [facility] Last Admin: 09/16/17 09:20 Dose: 460 mls/hr Propofol (Diprivan) 1,000 mg in 100 mls @ 2.062 mls/hr IV .Q24H PRN; Protocol; 5 MCG/KG/MIN PRN Reason: TITRATE PER MD ORDER Last Admin: 09/16/17 06:31 Dose: 40 mcg/kg/min, 16.493 mls/hr Metronidazole (Flagyl) 500 mg in 100 mls @ 100 mls/hr IVPB Q8 [facility] PRN Reason: Protocol Last Admin: 09/16/17 06:33 Dose: 100 mls/hr Insulin Human Lispro (Humalog High) 0 units SC ACHS [facility] PRN Reason: Protocol Levalbuterol HCl (Xopenex) 0.63 mg IH [id number] [facility] Last Admin: 09/16/17 07:08 Dose: 0.63 mg Lorazepam (Ativan) 2 mg IVP Q3H PRN; Protocol PRN Reason: Agitation Last Admin: 09/14/17 10:15 Dose: 2 mg Multivitamins/Vitamin C (Multi-Delyn Liquid) 15 ml PO 0800 [facility] Last Admin: 09/16/17 10:17 Dose: 15 ml Pantoprazole Sodium (Protonix Inj) 40 mg IVP DAILY [facility] Thiamine HCl (Vitamin B1 Inj) 100 mg IV DAILY [facility] Last Admin: 09/16/17 10:17 Dose: 100 mg Tobramycin/Dexamethasone (Tobradex Opht Susp) 0 ml OU QID [facility] Last Admin: 09/16/17 09:30 Dose: 1 drop Vancomycin HCl (Vancocin 25 Mg/Ml (Oral Use)) 500 mg PO Q6 [facility] PRN Reason: Protocol Last Admin: 09/16/17 06:53 Dose: 500 mg - Labs Labs: 09/15/17 05:50 09/16/17 06:00 PT 13.4 SECONDS (9.4-12.5) H 09/12/17 06:00 INR 1.16 (0.93-1.08) H 09/12/17 06:00 APTT 34.1 Seconds (25.1-36.5) 09/12/17 06:00 - Constitutional Appears: Chronically Ill - Head Exam Head Exam: ATRAUMATIC, NORMAL INSPECTION, NORMOCEPHALIC - Eye Exam Eye Exam: Conjunctival injection, PERRL (sluggish) - ENT Exam ENT Exam: Mucous Membranes Moist Additional comments: ET tube in place - Respiratory Exam Additional comments: intubated on vent- failed PS trial - Cardiovascular Exam Cardiovascular Exam: Tachycardia, REGULAR RHYTHM, +S1, +S2. absent: Murmur - GI/Abdominal Exam GI & Abdominal Exam: Distended, Soft - Rectal Exam Additional comments: rectal tube in place - Extremities Exam Extremities Exam: Pedal Edema - Neurological Exam Neurological Exam: absent: Alert, Awake, Oriented x3 Additional comments: gag intact sedated on diprivan sluggish pupils - Skin Skin Exam: Dry, Intact Additional comments: bullae on left dorsal surface of left hand Assessment and Plan - Assessment and Plan (Free Text) Assessment: 47yo M PMHx of DM2, HTN and alcohol use admitted for septic shock (with lactate of 7.7 on presentation), high anion gap metabolic acidosis, acute pancreatitis 2 /2 ETOH vs triglycerides, IRWIN vs CKD, elevated LFTs likely 2/2 ETOH, elevated BNP, hyponatremia, and hypokalemia. S/P Cardiac arrest and ROSC. Plan: Septic shock - continue ICU monitoring due to unstable vitals and altered mental state - Off pressors - Lipase and Amylase were elevated indicating pancreatitis 2/2 ETOH vs TG (>1000 )- resolved and normalized - tylenol supp PRN - blood, urine, trachea cultures showed no growth - stool cultures indicating cdiff +Ag/-Toxin; - start IV flagyl for diarrhea and continue PO Vanc - Monitor vitals - Maintain MAP > 65 - CT Findings on admission are concerning for acute pancreatitis w/o ductal dilatation, calcifications or pseudocyst. alcoholic liver steatosis - ID consulted for management of septic shock, recs appreciated - GI consulted for alcoholic pancreatitis and +stool occult blood, recs appreciated - Surgery consulted for abdominal distention and for trach/peg placement, recs appreciated - Palliative care consulted for advanced directives, patient will be transferred to [facility] Respiratory Failure - Intubated on vent (450, 27, 35, 5) - Failing daily PS trials - Surgery consulted for Trach/PEG AMS 2/2 Anion gap metabolic acidosis likely 2/2 lactic acidosis and ETOH - s/p cardiac arrest 09/08 - CT Head showed no acute intracranial abnormalities and mild chronic microangiopathic changes, w/ moderate global parencyhmal volume loss - patient was intubated to protect airway due to hypoxemia and vomiting to reduce risk of aspiration; daily vent weaning trials - ativan prn agitation added - Maintain SaO2 > 90% - TSH and A1C WNL - EEG was normal - Repeat head CT was unremarkable - cont Keppra for seizure ppx - Neurology consulted, recs appreciated - Cardiology consulted, recs appreciated IRWIN vs CKD a/w Hypophosphatemia - temp dialysis catheter placed - started on TD clonidine for HTN management - Nephro will see patient today to determine if he requires HD today - FENa 3.2 indicating ATN - given septic shock, likely component of pre-renal and intrinsic ischemic ATN ( coarse granular casts seen on UA) - avoid nephrotoxins - Nephrology consulted, recs appreciated Thrombocytopenia - s/p 3 u platelets in total (consent obtained by resident from ) - peripheral smear ordered, not showing clumps or schistoytes - 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 Frances Trejo PGY2 <Jeanne Daniels - Last Filed: 09/24/17 15:09> Objective - Vital Signs/Intake and Output Vital Signs (last 24 hours): Temp Pulse Resp BP Pulse Ox 100.1 F H 111 H 20 158/108 H 100 09/24/17 04:00 09/24/17 10:44 09/24/17 07:45 09/24/17 10:44 09/24/17 07:45 Intake and Output: 09/24/17 09/24/17 06:59 18:59 Intake Total 120 Output Total 1350 Balance -1230 - Medications Medications: Current Medications Acetaminophen (Tylenol 325mg Tab) 650 mg PO Q4 PRN PRN Reason: Fever >100.4 F Amlodipine Besylate (Norvasc) 5 mg PO DAILY [facility] Last Admin: 09/24/17 10:44 Dose: 5 mg Artificial Tears (Refresh Opth Soln) 0.3 ml OU Q12 PRN PRN Reason: Dry eyes Last Admin: 09/17/17 21:43 Dose: 0.3 ml Clonidine HCl (Catapres Tts1 0.1 Mg/24 Hr) 1 patch TD Q7D@1000 [facility] Last Admin: 09/22/17 09:56 Dose: 1 patch Folic Acid (Folic Acid) 1 mg NG DAILY [facility] Last Admin: 09/24/17 09:15 Dose: 1 mg Heparin Sodium (Porcine) (Heparin) 5,000 units SC Q12 [facility] PRN Reason: Protocol Last Admin: 09/24/17 09:15 Dose: 5,000 units Hydralazine HCl (Apresoline) 10 mg IVP Q6 PRN PRN Reason: BP> 180 Last Admin: 09/24/17 09:16 Dose: 10 mg Levetiracetam 1,000 mg/ Sodium (Chloride) 110 mls @ 460 mls/hr IV Q12 [facility] Last Admin: 09/24/17 09:51 Dose: 460 mls/hr Insulin Detemir (Levemir) 15 unit SC HS [facility] Last Admin: 09/22/17 22:12 Dose: 15 unit Insulin Human Lispro (Humalog High) 0 units SC Q6H [facility] PRN Reason: Protocol Last Admin: 09/24/17 07:00 Dose: Not Given Levalbuterol HCl (Xopenex) 0.63 mg IH [id number] [facility] Last Admin: 09/24/17 13:20 Dose: 0.63 mg Lorazepam (Ativan) 2 mg IVP Q3H PRN; Protocol PRN Reason: Agitation Last Admin: 09/23/17 00:10 Dose: 2 mg Multivitamins/Vitamin C (Multi-Delyn Liquid) 15 ml PO 0800 [facility] Last Admin: 09/24/17 09:15 Dose: 15 ml Pantoprazole Sodium (Protonix Inj) 40 mg IVP Q12 [facility] Last Admin: 09/24/17 09:15 Dose: 40 mg Thiamine HCl (Vitamin B1 Tab) 100 mg PO DAILY [facility] Vitamin A (Vitamin A & D Oint Ud Foilpak) 1 ea TOP Q8 PRN PRN Reason: Dry skin Last Admin: 09/17/17 18:41 Dose: 1 ea - Labs Labs: 09/24/17 05:50 09/24/17 05:50 PT 13.0 SECONDS (9.4-12.5) H 09/24/17 05:50 INR 1.13 (0.93-1.08) H 09/24/17 05:50 APTT 32.4 Seconds (25.1-36.5) 09/17/17 05:45 Attending/Attestation - Attestation I have personally seen and examined this patient.: Yes I have fully participated in the care of the patient.: Yes I have reviewed all pertinent clinical information, including history, physical exam and plan: Yes Notes (Text): I have seen and examined the patient at bedside with the resident. Agree with the above note with the following additions/ exceptions: Briefly this is 47 year male with history of alcohol abuse, DM-2 who came initially for abdominal pain and dyspnea. He was found to be severely acidotic and had elevated lactic acid level. He was diagnosed with pancreatitis. Currently intubated. He is off sedation and pressors. He is responsive to painful stimuli however he is not able to follow commands. CT head showed volume loss. CXR revealed improvement in ALMAZ infiltrate. He has leukocytosis. Procal high probably due to renal failure. Blood and urine culture negative. He continues to have diarrhea. Rectal tube is in. Continue PO vancomycin and flagyl for Cdiff colitis. ID on board. He has acute kidney injury due to SIRS vs ATN. He remains oliguric. He is s/p Shiley insertion and undergoing hemodialysis on daily basis. Repeat lipase level normalized. Abdomen ultrasound revealed no evidence of pancreatitis. As he has high residuals feeding was held. Echo revealed normal EF. Continue seizure precautions, keppra, thiamine, folate and MVI. EEG result normal. Elevated LFTs probably due to worsening liver failure due to shock liver /alcohol abuse. Will closely monitor Is Os. He has anemia and thrombocytopenia which can be due to alcohol induced BM suppression vs sepsis induced coagulopathy. He was given 3 units of platelets. There is a plan for trach and peg placement tomorrow by Dr Pablo. Overall prognosis is poor. Palliative care consult pending. Dr Jeanne Daniels
[2017-09-16] MEDS: Insulin Lispro (HUMAlog) HIGH Coverage SC SCH ×3 (12:00→23:12)
[2017-09-16 12:51] LABS: BASO # 0.23 K/mm3 (0.0-2.0); BASO % 1.5 % (0.0-3.0); EOS % 0.2 % (1.5-5.0); GRAN # 12.5 (1.4-6.5); GRAN % 78.8 % (50.0-68.0); HEMOGLOBIN 8.7 g/dL (14.0-18.0); LYMPH # 1.6 (1.2-3.4); LYMPH % 10.2 % (22.0-35.0); MEAN CELL VOLUME 92.6 fl (80.0-105.0); MEAN CORPUSCULAR HEMOGLOBIN 30.9 pg (25.0-35.0); MEAN CORPUSCULAR HGB CONC 33.3 g/dl (31.0-37.0); MEAN PLATELET VOLUME 10.9 fl (7.0-11.0); MONO # 1.5 (0.1-0.6); MONO % 9.3 % (1.0-6.0); RBC 2.82 10^6/uL (3.5-6.1); RED CELL DISTRIBUTION WIDTH 16.8 % (11.5-14.5); WHITE BLOOD COUNT 15.9 10^3/ul (4.5-11.0)
--- NOTE | 2017-09-16 13:50 | PN ---
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 He is post CPR on admission, and treated for sepsis and pneumonia. The patient has encephalopathy. Note that the patient is on Diprivan for some sedation and is getting hydralazine as well as clonidine for his blood pressure control. PHYSICAL EXAMINATION VITAL SIGNS: Note that his temperature is 98.5, pulse is 85, respirations of 24, and BP is 112/65. SKIN: Warm and dry. HEENT: Head is atraumatic, normocephalic. Eyes reactive to light. Ears, nose and throat seemed to be within normal limits. NECK: Supple. No JVD. No thyroid enlargement. No lymph nodes. HEART: Has regular rate and rhythm. Normal S1, S2. LUNGS: Reveal mild rhonchi bilaterally. ABDOMEN: Soft. Decreased bowel sounds. GENITALIA AND RECTAL: Deferred. MUSCULOSKELETAL: No joint deformities. EXTREMITIES: Reveal positive edema. NEUROLOGIC: The patient is sedated on the ventilator. LABORATORY DATA: As far as his laboratories are concerned, his sodium is 144, potassium 3.3, chloride 107, CO2 of 18, BUN is 62 with creatinine of 4.2 and a glucose of 326. CBC is pending. Arterial blood gas reveals a pH of 7.41, pCO2 of 25, pO2 of 142. IMPRESSION: As far as my impression, this patient has respiratory failure with acute respiratory distress syndrome and left upper lobe pneumonia. At this time, the patient is on ventilator support and has a history of acute pancreatitis as well as ethyl alcohol abuse and diabetes, end-stage renal disease on hemodialysis, anemia, thrombocytopenia and hypertension. PLAN: As far as our plan, we will continue support with the ventilator and wean trials. The patient is getting, I should say, metronidazole, IV Keppra, insulin and he is on Xopenex and Pulmicort via nebulizer. The patient is getting vancomycin as an antibiotic. Gabe Mcdowell MD
--- NOTE | 2017-09-16 16:43 | CP.PCM.PN ---
Subjective - Date & Time of Evaluation Date of Evaluation: 09/16/17 Time of Evaluation: 16:43 - Subjective Subjective: Please call us @ [phone] if any qs or concerns. thank you renal follow up note Assessment: critical Acute Kidney Injury (N17.9) likely due to pre-renal state, SIRS, Acute tubular necrosis Hyponatermia, hypokalemia DM, HTN, chronic alcoholism, hepatic dysfunction acute pancreatitis HAGMA with lactic acidosis + alcohol ketoacidosis and starvation ketoacidosis Thrombocytopenia Hypomagnesemia, hypophosphatemia s/p cardiac arrest, seizure ARDS Plan no hd today continue to monitor lytes reviewed anemia stable monitor phos levels, replace if low S: seen and examined remains intubated and sedated Physical Examination: General Appearance: ill appearing. on vent Vitals reviewed and noted as below Head; Atraumatic, normocephalic ENT: intubated Neck; supple Lungs: Increased respiratory rate/effort. mechanical bs Heart: Increased rate. s1s2 normal. No rub or gallop. Extremities: 1+ edema. No varicose veins Neurological: Patient is sedated Skin: Warm and dry. Abdomen: Abdomen is soft. Bowel sounds decreased has rectal tube Psych: unable to assess MSK: no joint tenderness Objective - Vital Signs/Intake and Output Vital Signs (last 24 hours): Temp Pulse Resp BP Pulse Ox 98.5 F 90 26 H 161/90 H 86 L 09/14/17 04:00 09/16/17 15:30 09/16/17 11:45 09/16/17 15:30 09/16/17 11:45 Intake and Output: 09/16/17 09/16/17 06:59 18:59 Intake Total 396 132 Output Total 350 Balance 46 132 - Medications Medications: Current Medications Artificial Tears (Refresh Opth Soln) 0.3 ml OU Q12 PRN PRN Reason: Dry eyes Budesonide (Pulmicort Respules) 0.5 mg IH [id number] [facility] Last Admin: 09/16/17 07:08 Dose: 0.5 mg Clonidine HCl (Catapres Tts1 0.1 Mg/24 Hr) 1 patch TD Q7D@1000 [facility] Last Admin: 09/15/17 14:50 Dose: 1 patch Famotidine (Pepcid) 20 mg IVP BID [facility] Folic Acid (Folic Acid) 1 mg NG DAILY [facility] Last Admin: 09/16/17 10:17 Dose: 1 mg Hydralazine HCl (Apresoline) 10 mg IVP Q6 PRN PRN Reason: BP> 180 Last Admin: 09/15/17 22:36 Dose: 10 mg Levetiracetam 1,000 mg/ Sodium (Chloride) 110 mls @ 460 mls/hr IV Q12 [facility] Last Admin: 09/16/17 09:20 Dose: 460 mls/hr Propofol (Diprivan) 1,000 mg in 100 mls @ 2.062 mls/hr IV .Q24H PRN; Protocol; 5 MCG/KG/MIN PRN Reason: TITRATE PER MD ORDER Last Titration: 09/16/17 14:45 Dose: 35 mcg/kg/min, 14.431 mls/hr Metronidazole (Flagyl) 500 mg in 100 mls @ 100 mls/hr IVPB Q8 [facility] PRN Reason: Protocol Last Admin: 09/16/17 15:06 Dose: 100 mls/hr Insulin Human Lispro (Humalog High) 0 units SC ACHS [facility] PRN Reason: Protocol Last Admin: 09/16/17 12:00 Dose: 10 units Levalbuterol HCl (Xopenex) 0.63 mg IH [id number] [facility] Last Admin: 09/16/17 13:40 Dose: 0.63 mg Lorazepam (Ativan) 2 mg IVP Q3H PRN; Protocol PRN Reason: Agitation Last Admin: 09/14/17 10:15 Dose: 2 mg Multivitamins/Vitamin C (Multi-Delyn Liquid) 15 ml PO 0800 [facility] Last Admin: 09/16/17 10:17 Dose: 15 ml Thiamine HCl (Vitamin B1 Inj) 100 mg IV DAILY [facility] Last Admin: 09/16/17 10:17 Dose: 100 mg Tobramycin/Dexamethasone (Tobradex Opht Susp) 0 ml OU QID [facility] Last Admin: 09/16/17 15:02 Dose: 1 drop Vancomycin HCl (Vancocin 25 Mg/Ml (Oral Use)) 500 mg PO Q6 [facility] PRN Reason: Protocol Last Admin: 09/16/17 15:18 Dose: 500 mg - Labs Labs: 09/16/17 12:15 09/16/17 06:00 PT 13.4 SECONDS (9.4-12.5) H 09/12/17 06:00 INR 1.16 (0.93-1.08) H 09/12/17 06:00 APTT 34.1 Seconds (25.1-36.5) 09/12/17 06:00
[2017-09-17] MEDS: Propofol 10 mg/ml 1,000 MG/100 ML VIAL IV PRN ×4 (00:06→21:13)
[2017-09-17] MEDS: Vancomycin 25 MG/ML PO SCH ×5 (01:27→18:46)
[2017-09-17] MEDS: Levalbuterol 0.63 MG/3 ML Inhal Soln UD IH SCH ×4 (01:30→20:27)
[2017-09-17] MEDS: metroNIDAZOLE IV 500 mg/100 ml 500 MG/100 ML BAG IVPB SCH ×3 (05:15→21:11)
[2017-09-17 06:28] LABS: BASO # 0.25 K/mm3 (0.0-2.0); BASO % 1.3 % (0.0-3.0); EOS # 0.1 (0.0-0.7); EOS % 0.3 % (1.5-5.0); GRAN # 13.9 (1.4-6.5); GRAN % 74.1 % (50.0-68.0); HEMOGLOBIN 8.6 g/dL (14.0-18.0); LYMPH # 2.4 (1.2-3.4); LYMPH % 12.5 % (22.0-35.0); MEAN CORPUSCULAR HEMOGLOBIN 30.3 pg (25.0-35.0); MEAN CORPUSCULAR HGB CONC 32.6 g/dl (31.0-37.0); MEAN PLATELET VOLUME 12.3 fl (7.0-11.0); MONO # 2.2 (0.1-0.6); MONO % 11.8 % (1.0-6.0); RBC 2.84 10^6/uL (3.5-6.1); RED CELL DISTRIBUTION WIDTH 17.5 % (11.5-14.5); WHITE BLOOD COUNT 18.8 10^3/ul (4.5-11.0)
[2017-09-17 06:33] LABS: ARTERIAL BLOOD GAS HCO3 17.5 mmol/L (21-28); ARTERIAL BLOOD GAS HEMOGLOBIN 8.8 g/dL (11.7-17.4); ARTERIAL BLOOD GAS O2 CAPACITY 12.2 mL/dl (16-24); ARTERIAL BLOOD GAS O2 CONTENT 12.1 ML/dl (15-23); ARTERIAL BLOOD GAS O2 SAT 99.1 % (95-98); ARTERIAL BLOOD GAS PCO2 27 mm/Hg (35-45); ARTERIAL BLOOD GAS PH 7.42 (7.35-7.45); ARTERIAL BLOOD GAS TCO2 18.3 mmol.L (22-28)
[2017-09-17 06:48] LABS: INR 1.23 (0.93-1.08); PARTIAL THROMBOPLASTIN TIME 32.4 Seconds (25.1-36.5); PROTHROMBIN TIME 14.2 SECONDS (9.4-12.5)
[2017-09-17 07:00] LABS: ALB/GLOB RATIO 0.8 (1.1-1.8); ALBUMIN 2.5 g/dL (3.0-4.8); CALCIUM 9.4 mg/dL (8.4-10.5); MAGNESIUM 1.7 mg/dL (1.7-2.2)
--- NOTE | 2017-09-17 07:42 | CP.CCUPN ---
<Mayra Pierce - Last Filed: 09/17/17 11:36> CCU Subjective - Physician Review Subjective (Free Text): 09/17/17 11:39 Patient seen and examined at bedside. No acute events overnight as per nursing. Patient had a temp this AM. Intubated on vent (35, 5, 18, 450)- failed PS trial this AM. Opens eyes to tactile stumuli. Patient for HD today. Tolerating feeds. Complete ROS unobtainable. Critical Care Time Spent (in minutes): 45 CCU Objective - Vital Signs / Intake & Output Vital Signs (Last 4 hours): Vital Signs Temp Pulse BP Pulse Ox 09/17/17 07:21 100.9 F H 09/17/17 04:15 105 H 142/91 H 96 09/17/17 04:00 103 H 134/89 97 09/17/17 03:45 102 H 140/90 97 Intake and Output (Last 8hrs): Intake & Output 09/16/17 09/17/17 09/17/17 22:59 06:59 14:59 Intake Total 983 185 Output Total 800 Balance 183 185 Intake: IV 583 185 Right internal jugular 500 Tube Feeding 200 Other 200 Output: Urine 600 Urethral (Chance) 600 Stool 200 Other: # Bowel Movements 1 - Physical Exam Head: Positive for: Atraumatic, Normocephalic Pupils: Positive for: PERRL Extroacular Muscles: Positive for: Other (exopthalmic) Conjunctiva: Positive for: Normal Mouth: Positive for: Moist Mucous Membranes, Other (ET tube in place) Neck: Positive for: Other (R IJ TLC in place). Negative for: Lymphadenopathy Respiratory/Chest: Positive for: Rales (at bases), Other (intubated on vent ). Negative for: Accessory Muscle Use, Wheezes, Retracting, Rhonchi, Tachypneic Cardiovascular: Positive for: Normal S1, S2, Tachycardic. Negative for: Regular Rate and Rhythm, Murmurs Abdomen: Positive for: Distention, Normal Bowel Sounds. Negative for: Tenderness, Peritoneal Signs Genitourinary Male: Positive for: Penile Swelling Back: Positive for: Normal Inspection Upper Extremity: Positive for: Normal Inspection. Negative for: Cyanosis, Edema Lower Extremity: Positive for: Normal Inspection. Negative for: Edema, CALF TENDERNESS Neurological: Positive for: Other (intubated- reacts to pain; no sedation). Negative for: GCS=15 Skin: Positive for: Warm, Dry, Other (bullae on left dorsal surface of hand). Negative for: Rashes Psychiatric: Negative for: Alert, Oriented x 3, Normal Insight, Normal Concentration - Medications Active Medications: Active Medications Generic Name Dose Route Start Last Admin Trade Name Freq PRN Reason Stop Dose Admin Artificial Tears 0.3 ml 09/14/17 10:18 Refresh Opth Soln OU Q12 PRN Dry eyes Budesonide 0.5 mg 09/09/17 08:00 09/16/17 19:35 Pulmicort Respules IH 0.5 mg [id number] DENIA Administration Clonidine HCl 1 patch 09/15/17 10:00 09/15/17 14:50 Catapres Tts1 0.1 Mg/24 Hr TD 1 patch Q7D@1000 DENIA Administration Famotidine 20 mg 09/16/17 18:00 09/16/17 19:15 Pepcid IVP 20 mg BID DENIA Administration Folic Acid 1 mg 09/14/17 11:30 09/16/17 10:17 Folic Acid NG 1 mg DAILY DENIA Administration Hydralazine HCl 10 mg 09/15/17 17:23 09/15/17 22:36 Apresoline IVP 10 mg Q6 PRN Administration BP> 180 Levetiracetam 1,000 mg/ Sodium 110 mls @ 460 mls/hr 09/10/17 10:00 09/16/17 22:53 Chloride IV 460 mls/hr Q12 DENIA Administration Propofol 1,000 mg in 100 mls @ 2.062 mls/hr 09/12/17 11:52 09/17/17 05:24 Diprivan IV 40 mcg/kg/min .Q24H PRN 16.493 mls/hr TITRATE PER MD ORDER Administration Protocol 5 MCG/KG/MIN Metronidazole 500 mg in 100 mls @ 100 mls/hr 09/14/17 14:00 09/17/17 05:15 Flagyl IVPB 100 mls/hr Q8 DENIA Administration Protocol Insulin Human Lispro 0 units 09/16/17 11:30 09/16/17 23:12 Humalog High SC Not Given ACHS DENIA Protocol Levalbuterol HCl 0.63 mg 09/10/17 20:00 09/16/17 19:35 Xopenex IH 0.63 mg [id number] DENIA Administration Lorazepam 2 mg 09/10/17 09:16 09/14/17 10:15 Ativan IVP 2 mg Q3H PRN Administration Agitation Protocol Multivitamins/Vitamin C 15 ml 09/11/17 08:00 09/16/17 10:17 Multi-Delyn Liquid PO 15 ml 0800 DENIA Administration Thiamine HCl 100 mg 09/12/17 10:00 09/16/17 10:17 Vitamin B1 Inj IV 100 mg DAILY DENIA Administration Tobramycin/Dexamethasone 0 ml 09/14/17 18:00 09/16/17 23:28 Tobradex Opht Susp OU 1 drop QID DENIA Administration Vancomycin HCl 500 mg 09/09/17 18:00 09/17/17 07:00 Vancocin 25 Mg/Ml (Oral Use) PO 500 mg Q6 DENIA Administration Protocol - Patient Studies Lab Studies: Lab Studies 09/17/17 09/17/17 09/17/17 Range/Units 06:00 05:45 05:45 WBC 18.8 H (4.5-11.0) 10^3/ul RBC 2.84 L (3.5-6.1) 10^6/uL Hgb 8.6 L (14.0-18.0) g/dL Hct 26.4 L (42.0-52.0) % MCV 93.0 (80.0-105.0) fl MCH 30.3 (25.0-35.0) pg MCHC 32.6 (31.0-37.0) g/dl RDW 17.5 H (11.5-14.5) % Plt Count 114 L (120.0-450.0) 10^3/uL MPV 12.3 H (7.0-11.0) fl Gran % 74.1 H (50.0-68.0) % Lymph % (Auto) 12.5 L (22.0-35.0) % [place] % (Auto) 11.8 H (1.0-6.0) % Eos % (Auto) 0.3 L (1.5-5.0) % Baso % (Auto) 1.3 (0.0-3.0) % Gran # 13.90 H (1.4-6.5) Lymph # (Auto) 2.4 (1.2-3.4) [place] # (Auto) 2.2 H (0.1-0.6) Eos # (Auto) 0.1 (0.0-0.7) Baso # (Auto) 0.25 (0.0-2.0) K/mm3 PT 14.2 H (9.4-12.5) SECONDS INR 1.23 H (0.93-1.08) APTT 32.4 (25.1-36.5) Seconds pCO2 27 L (35-45) mm/Hg pO2 94.0 (80-100) mm/Hg HCO3 17.5 L (21-28) mmol/L ABG pH 7.42 (7.35-7.45) ABG Total CO2 18.3 L (22-28) mmol.L ABG O2 Saturation 99.1 H (95-98) % ABG O2 Content 12.1 L (15-23) ML/dl ABG Base Excess -6.0 L (-2.0-3.0) mmol/L ABG Hemoglobin 8.8 L (11.7-17.4) g/dL ABG Carboxyhemoglobin 2.2 H (0.5-1.5) % POC ABG HHb (Measured) 0.9 (0-5) % ABG Methemoglobin 0.5 (0.0-3.0) % ABG O2 Capacity 12.2 L (16-24) mL/dl Hgb O2 Saturation 96.4 (95.0-98.0) % FiO2 35.0 % Sodium (132-148) mmol/L Potassium (3.6-5.0) mmol/L Chloride (98-107) mmol/L Carbon Dioxide (21-33) mmol/L Anion Gap (10-20) BUN (7-21) mg/dL Creatinine (0.8-1.5) mg/dl Est GFR ( Amer) Est GFR (Non-Af Amer) POC Glucose (mg/dL) (65-110) mg/dL Random Glucose (70-110) mg/dL Calcium (8.4-10.5) mg/dL Phosphorus (2.5-4.5) mg/dL Magnesium (1.7-2.2) mg/dL Total Bilirubin (0.2-1.3) mg/dL AST (17-59) U/L ALT (7-56) U/L Alkaline Phosphatase (38-126) U/L Total Protein (5.8-8.3) g/dL Albumin (3.0-4.8) g/dL Globulin gm/dL Albumin/Globulin Ratio (1.1-1.8) 09/17/17 09/16/17 09/16/17 Range/Units 05:45 23:09 18:46 WBC (4.5-11.0) 10^3/ul RBC (3.5-6.1) 10^6/uL Hgb (14.0-18.0) g/dL Hct (42.0-52.0) % MCV (80.0-105.0) fl MCH (25.0-35.0) pg MCHC (31.0-37.0) g/dl RDW (11.5-14.5) % Plt Count (120.0-450.0) 10^3/uL MPV (7.0-11.0) fl Gran % (50.0-68.0) % Lymph % (Auto) (22.0-35.0) % [place] % (Auto) (1.0-6.0) % Eos % (Auto) (1.5-5.0) % Baso % (Auto) (0.0-3.0) % Gran # (1.4-6.5) Lymph # (Auto) (1.2-3.4) [place] # (Auto) (0.1-0.6) Eos # (Auto) (0.0-0.7) Baso # (Auto) (0.0-2.0) K/mm3 PT (9.4-12.5) SECONDS INR (0.93-1.08) APTT (25.1-36.5) Seconds pCO2 (35-45) mm/Hg pO2 (80-100) mm/Hg HCO3 (21-28) mmol/L ABG pH (7.35-7.45) ABG Total CO2 (22-28) mmol.L ABG O2 Saturation (95-98) % ABG O2 Content (15-23) ML/dl ABG Base Excess (-2.0-3.0) mmol/L ABG Hemoglobin (11.7-17.4) g/dL ABG Carboxyhemoglobin (0.5-1.5) % POC ABG HHb (Measured) (0-5) % ABG Methemoglobin (0.0-3.0) % ABG O2 Capacity (16-24) mL/dl Hgb O2 Saturation (95.0-98.0) % FiO2 % Sodium 143 (132-148) mmol/L Potassium 3.8 (3.6-5.0) mmol/L Chloride 110 H (98-107) mmol/L Carbon Dioxide 19 L (21-33) mmol/L Anion Gap 17 (10-20) BUN 70 H (7-21) mg/dL Creatinine 3.8 H (0.8-1.5) mg/dl Est GFR ( Amer) 21 Est GFR (Non-Af Amer) 17 POC Glucose (mg/dL) 172 H 267 H (65-110) mg/dL Random Glucose 386 H* (70-110) mg/dL Calcium 9.4 (8.4-10.5) mg/dL Phosphorus 2.8 (2.5-4.5) mg/dL Magnesium 1.7 (1.7-2.2) mg/dL Total Bilirubin 1.3 (0.2-1.3) mg/dL AST 49 (17-59) U/L ALT 58 H (7-56) U/L Alkaline Phosphatase 250 H D (38-126) U/L Total Protein 5.6 L (5.8-8.3) g/dL Albumin 2.5 L (3.0-4.8) g/dL Globulin 3.1 gm/dL Albumin/Globulin Ratio 0.8 L (1.1-1.8) 09/16/17 09/16/17 09/16/17 Range/Units 12:15 11:12 08:03 WBC 15.9 H (4.5-11.0) 10^3/ul RBC 2.82 L (3.5-6.1) 10^6/uL Hgb 8.7 L (14.0-18.0) g/dL Hct 26.1 L (42.0-52.0) % MCV 92.6 (80.0-105.0) fl MCH 30.9 (25.0-35.0) pg MCHC 33.3 (31.0-37.0) g/dl RDW 16.8 H (11.5-14.5) % Plt Count 67 L (120.0-450.0) 10^3/uL MPV 10.9 (7.0-11.0) fl Gran % 78.8 H (50.0-68.0) % Lymph % (Auto) 10.2 L (22.0-35.0) % [place] % (Auto) 9.3 H (1.0-6.0) % Eos % (Auto) 0.2 L (1.5-5.0) % Baso % (Auto) 1.5 (0.0-3.0) % Gran # 12.50 H (1.4-6.5) Lymph # (Auto) 1.6 (1.2-3.4) [place] # (Auto) 1.5 H (0.1-0.6) Eos # (Auto) 0.0 (0.0-0.7) Baso # (Auto) 0.23 (0.0-2.0) K/mm3 PT (9.4-12.5) SECONDS INR (0.93-1.08) APTT (25.1-36.5) Seconds pCO2 (35-45) mm/Hg pO2 (80-100) mm/Hg HCO3 (21-28) mmol/L ABG pH (7.35-7.45) ABG Total CO2 (22-28) mmol.L ABG O2 Saturation (95-98) % ABG O2 Content (15-23) ML/dl ABG Base Excess (-2.0-3.0) mmol/L ABG Hemoglobin (11.7-17.4) g/dL ABG Carboxyhemoglobin (0.5-1.5) % POC ABG HHb (Measured) (0-5) % ABG Methemoglobin (0.0-3.0) % ABG O2 Capacity (16-24) mL/dl Hgb O2 Saturation (95.0-98.0) % FiO2 % Sodium (132-148) mmol/L Potassium (3.6-5.0) mmol/L Chloride (98-107) mmol/L Carbon Dioxide (21-33) mmol/L Anion Gap (10-20) BUN (7-21) mg/dL Creatinine (0.8-1.5) mg/dl Est GFR ( Amer) Est GFR (Non-Af Amer) POC Glucose (mg/dL) 332 H 326 H (65-110) mg/dL Random Glucose (70-110) mg/dL Calcium (8.4-10.5) mg/dL Phosphorus (2.5-4.5) mg/dL Magnesium (1.7-2.2) mg/dL Total Bilirubin (0.2-1.3) mg/dL AST (17-59) U/L ALT (7-56) U/L Alkaline Phosphatase (38-126) U/L Total Protein (5.8-8.3) g/dL Albumin (3.0-4.8) g/dL Globulin gm/dL Albumin/Globulin Ratio (1.1-1.8) Laboratory Results - last 24 hr 09/16/17 09/16/17 09/16/17 08:03 11:12 12:15 WBC 15.9 H RBC 2.82 L Hgb 8.7 L Hct 26.1 L MCV 92.6 MCH 30.9 MCHC 33.3 RDW 16.8 H Plt Count 67 L MPV 10.9 Gran % 78.8 H Lymph % (Auto) 10.2 L [place] % (Auto) 9.3 H Eos % (Auto) 0.2 L Baso % (Auto) 1.5 Gran # 12.50 H Lymph # (Auto) 1.6 [place] # (Auto) 1.5 H Eos # (Auto) 0.0 Baso # (Auto) 0.23 PT INR APTT pCO2 pO2 HCO3 ABG pH ABG Total CO2 ABG O2 Saturation ABG O2 Content ABG Base Excess ABG Hemoglobin ABG Carboxyhemoglobin POC ABG HHb (Measured) ABG Methemoglobin ABG O2 Capacity Hgb O2 Saturation FiO2 Sodium Potassium Chloride Carbon Dioxide Anion Gap BUN Creatinine Est GFR ( Amer) Est GFR (Non-Af Amer) POC Glucose (mg/dL) 326 H 332 H Random Glucose Calcium Phosphorus Magnesium Total Bilirubin AST ALT Alkaline Phosphatase Total Protein Albumin Globulin Albumin/Globulin Ratio 09/16/17 09/16/17 09/17/17 18:46 23:09 05:45 WBC RBC Hgb Hct MCV MCH MCHC RDW Plt Count MPV Gran % Lymph % (Auto) [place] % (Auto) Eos % (Auto) Baso % (Auto) Gran # Lymph # (Auto) [place] # (Auto) Eos # (Auto) Baso # (Auto) PT INR APTT pCO2 pO2 HCO3 ABG pH ABG Total CO2 ABG O2 Saturation ABG O2 Content ABG Base Excess ABG Hemoglobin ABG Carboxyhemoglobin POC ABG HHb (Measured) ABG Methemoglobin ABG O2 Capacity Hgb O2 Saturation FiO2 Sodium 143 Potassium 3.8 Chloride 110 H Carbon Dioxide 19 L Anion Gap 17 BUN 70 H Creatinine 3.8 H Est GFR ( Amer) 21 Est GFR (Non-Af Amer) 17 POC Glucose (mg/dL) 267 H 172 H Random Glucose 386 H* Calcium 9.4 Phosphorus 2.8 Magnesium 1.7 Total Bilirubin 1.3 AST 49 ALT 58 H Alkaline Phosphatase 250 H D Total Protein 5.6 L Albumin 2.5 L Globulin 3.1 Albumin/Globulin Ratio 0.8 L 09/17/17 09/17/17 09/17/17 05:45 05:45 06:00 WBC 18.8 H RBC 2.84 L Hgb 8.6 L Hct 26.4 L MCV 93.0 MCH 30.3 MCHC 32.6 RDW 17.5 H Plt Count 114 L MPV 12.3 H Gran % 74.1 H Lymph % (Auto) 12.5 L [place] % (Auto) 11.8 H Eos % (Auto) 0.3 L Baso % (Auto) 1.3 Gran # 13.90 H Lymph # (Auto) 2.4 [place] # (Auto) 2.2 H Eos # (Auto) 0.1 Baso # (Auto) 0.25 PT 14.2 H INR 1.23 H APTT 32.4 pCO2 27 L pO2 94.0 HCO3 17.5 L ABG pH 7.42 ABG Total CO2 18.3 L ABG O2 Saturation 99.1 H ABG O2 Content 12.1 L ABG Base Excess -6.0 L ABG Hemoglobin 8.8 L ABG Carboxyhemoglobin 2.2 H POC ABG HHb (Measured) 0.9 ABG Methemoglobin 0.5 ABG O2 Capacity 12.2 L Hgb O2 Saturation 96.4 FiO2 35.0 Sodium Potassium Chloride Carbon Dioxide Anion Gap BUN Creatinine Est GFR ( Amer) Est GFR (Non-Af Amer) POC Glucose (mg/dL) Random Glucose Calcium Phosphorus Magnesium Total Bilirubin AST ALT Alkaline Phosphatase Total Protein Albumin Globulin Albumin/Globulin Ratio Fingerstick Blood Sugar Results: 172 Review of Systems - Review of Systems Systems not reviewed;Unavailable: Intubated Assessment/Plan - Assessment and Plan (Free Text) Assessment: 47yo male PMHx of DM2, HTN and alcohol abuse found to be in septic shock likely secondary to pancreatitis, aspiration pneumonia, IRWIN, transaminitis, seizures, metabolic acidosis, thrombocytopenia likely secondary to alcohol abuse, cardiac arrest s/p ROSC and respiratory failure. Plan: Neuro: Pt intubated on no sedation Ativan and Fentanyl prn agitation Head CT: negative Depakote d/c and changed to Keppra IV BID EEG: no seizure activity Repeat head CT: no acute bleed Seizure precautions Maintain normothemia Neuro consulted- recs appreciated CV: cardiac arrest s/p ROSC Pt tachycardic Maintain MAP >65 Echo: unremarkable Monitor I&O Cardio consulted- recs appreciated Pulm: Intubated on PRVC- will titrate to maintain SpO2>92% Pt has crackles on exam and is in metabolic acidosis CXR showed pneumonia of RUL and L perihilar HOB elevated- asp precaution Pulmonary toilet Surgery consulted for trach Pulm consulted GI: Pancreatitis resolved and transaminitis trending down Abd U/S: fatty infiltration of liver, no evidence of cholelithiasis/ cholecystitis; no sonographic evidence of acute pancreatitis Folic acid, multivitamin, thiamine Avoid nephrotoxic medications Lipase and Amylase WNL Feeds on hold Hep panel negative GI consulted Surg consulted for G tube Heme: Thrombocytopenia secondary to EtOH abuse Hgb stable- no overt signs of bleeding Nephro: Patient to have HD today Maintain euvolemia Avoid nephrotoxic agents Monitor Is and Os and Daily Weight IR consulted for Permacath placement Nephro consulted- recs appreciated ID: C Diff positive ID consulted- recs appreciated afebrile overnight PO Vancomycin and Flagyl for C diff f/u repeat blood, sputum, urine cx, PCT, CXR and given a dose of IV Vanco and started on Merrem Blood, urine, sputum cultures negative HIV, Strep, and legionella negative Endo: Hx of DM Pt on ISS high Levemir 5u sc hs Accucheck q6 Maintain euglycemia 140-180s GI ppx: Protonix 40mg ivp q12 DVT ppx: SCDs- no heparin due to thrombocytopenia Diet: feeds on hold Dispo: Prognosis guarded. Palliative care consulted. Pending trach/PEG/Permacath Discussed with Dr. Dianna pierce PGY2 <Santosh Bustamante - Last Filed: 09/17/17 12:20> CCU Objective - Vital Signs / Intake & Output Vital Signs (Last 4 hours): Vital Signs Temp Pulse BP Pulse Ox 09/17/17 11:45 100.6 F H 99 H 141/90 98 09/17/17 11:41 100.8 F H 103 H 155/92 H 96 09/17/17 11:30 100.9 F H 104 H 160/101 H 99 09/17/17 11:15 96 H 139/86 94 L 09/17/17 11:00 101 H 139/91 H 98 09/17/17 10:45 104 H 153/94 H 98 09/17/17 10:30 100 H 138/91 H 98 09/17/17 10:15 102 H 159/106 H 99 09/17/17 10:00 100 H 154/103 H 99 09/17/17 09:45 100 H 163/106 H 99 09/17/17 09:30 99 H 161/102 H 99 09/17/17 09:15 102 H 151/95 H 98 09/17/17 09:00 106 H 154/96 H 98 09/17/17 08:45 103 H 141/92 H 98 09/17/17 08:30 102 H 145/92 H 99 Intake and Output (Last 8hrs): Intake & Output 09/16/17 09/17/17 09/17/17 22:59 06:59 14:59 Intake Total 983 735 100 Output Total 800 900 Balance 183 -165 100 Intake: IV 583 735 100 Right internal jugular 500 550 Tube Feeding 200 Other 200 Output: Urine 600 600 Urethral (Chance) 600 600 Stool 200 200 Emesis 100 Other: # Bowel Movements 1 - Medications Active Medications: Active Medications Generic Name Dose Route Start Last Admin Trade Name Freq PRN Reason Stop Dose Admin Artificial Tears 0.3 ml 09/14/17 10:18 09/17/17 11:07 Refresh Opth Soln OU 0.3 ml Q12 PRN Administration Dry eyes Budesonide 0.5 mg 09/09/17 08:00 09/17/17 07:57 Pulmicort Respules IH 0.5 mg [id number] DENIA Administration Clonidine HCl 1 patch 09/15/17 10:00 09/15/17 14:50 Catapres Tts1 0.1 Mg/24 Hr TD 1 patch Q7D@1000 DENIA Administration Famotidine 20 mg 09/16/17 18:00 09/17/17 11:00 Pepcid IVP 20 mg BID DENIA Administration Folic Acid 1 mg 09/14/17 11:30 09/17/17 11:06 Folic Acid NG 1 mg DAILY DENIA Administration Hydralazine HCl 10 mg 09/15/17 17:23 09/15/17 22:36 Apresoline IVP 10 mg Q6 PRN Administration BP> 180 Levetiracetam 1,000 mg/ Sodium 110 mls @ 460 mls/hr 09/10/17 10:00 09/17/17 11:03 Chloride IV 460 mls/hr Q12 DENIA Administration Propofol 1,000 mg in 100 mls @ 2.062 mls/hr 09/12/17 11:52 09/17/17 10:49 Diprivan IV 40 mcg/kg/min .Q24H PRN 16.493 mls/hr TITRATE PER MD ORDER Administration Protocol 5 MCG/KG/MIN Metronidazole 500 mg in 100 mls @ 100 mls/hr 09/14/17 14:00 09/17/17 05:15 Flagyl IVPB 100 mls/hr Q8 DENIA Administration Protocol Meropenem 500 mg/ Sodium 100 mls @ 100 mls/hr 09/17/17 10:15 09/17/17 11:01 Chloride IVPB 09/24/17 10:16 100 mls/hr Q12 DENIA Administration Protocol Insulin Detemir 5 unit 09/17/17 22:00 Levemir SC HS DENIA Insulin Human Lispro 0 units 09/16/17 11:30 09/16/17 23:12 Humalog High SC Not Given ACHS DENIA Protocol Levalbuterol HCl 0.63 mg 09/10/17 20:00 02/05/18 07:56 Xopenex IH 0.63 mg [id number] DENIA Administration Lorazepam 2 mg 09/10/17 09:16 09/14/17 10:15 Ativan IVP 2 mg Q3H PRN Administration Agitation Protocol Multivitamins/Vitamin C 15 ml 09/11/17 08:00 09/17/17 11:00 Multi-Delyn Liquid PO 15 ml 0800 DENIA Administration Pantoprazole Sodium 40 mg 09/17/17 11:45 Protonix Inj IVP Q12 DENIA Thiamine HCl 100 mg 09/12/17 10:00 09/17/17 10:59 Vitamin B1 Inj IV 100 mg DAILY DENIA Administration Tobramycin/Dexamethasone 0 ml 09/14/17 18:00 09/17/17 10:00 Tobradex Opht Susp OU 1 drop QID DENIA Administration Vancomycin HCl 500 mg 09/09/17 18:00 09/17/17 11:02 Vancocin 25 Mg/Ml (Oral Use) PO 500 mg Q6 DENIA Administration Protocol Vitamin A 1 ea 09/17/17 11:45 Vitamin A & D Oint Ud Foilpak TOP Q8 PRN Dry skin - Patient Studies Lab Studies: Lab Studies 09/17/17 09/17/17 09/17/17 Range/Units 11:09 07:16 06:45 WBC (4.5-11.0) 10^3/ul RBC (3.5-6.1) 10^6/uL Hgb (14.0-18.0) g/dL Hct (42.0-52.0) % MCV (80.0-105.0) fl MCH (25.0-35.0) pg MCHC (31.0-37.0) g/dl RDW (11.5-14.5) % Plt Count (120.0-450.0) 10^3/uL MPV (7.0-11.0) fl Gran % (50.0-68.0) % Lymph % (Auto) (22.0-35.0) % [place] % (Auto) (1.0-6.0) % Eos % (Auto) (1.5-5.0) % Baso % (Auto) (0.0-3.0) % Gran # (1.4-6.5) Lymph # (Auto) (1.2-3.4) [place] # (Auto) (0.1-0.6) Eos # (Auto) (0.0-0.7) Baso # (Auto) (0.0-2.0) K/mm3 PT (9.4-12.5) SECONDS INR (0.93-1.08) APTT (25.1-36.5) Seconds pCO2 (35-45) mm/Hg pO2 (80-100) mm/Hg HCO3 (21-28) mmol/L ABG pH (7.35-7.45) ABG Total CO2 (22-28) mmol.L ABG O2 Saturation (95-98) % ABG O2 Content (15-23) ML/dl ABG Base Excess (-2.0-3.0) mmol/L ABG Hemoglobin (11.7-17.4) g/dL ABG Carboxyhemoglobin (0.5-1.5) % POC ABG HHb (Measured) (0-5) % ABG Methemoglobin (0.0-3.0) % ABG O2 Capacity (16-24) mL/dl Hgb O2 Saturation (95.0-98.0) % FiO2 % Sodium (132-148) mmol/L Potassium (3.6-5.0) mmol/L Chloride (98-107) mmol/L Carbon Dioxide (21-33) mmol/L Anion Gap (10-20) BUN (7-21) mg/dL Creatinine (0.8-1.5) mg/dl Est GFR ( Amer) Est GFR (Non-Af Amer) POC Glucose (mg/dL) 439 H* 410 H* (65-110) mg/dL Random Glucose (70-110) mg/dL Calcium (8.4-10.5) mg/dL Phosphorus (2.5-4.5) mg/dL Magnesium (1.7-2.2) mg/dL Total Bilirubin (0.2-1.3) mg/dL AST (17-59) U/L ALT (7-56) U/L Alkaline Phosphatase (38-126) U/L Total Protein (5.8-8.3) g/dL Albumin (3.0-4.8) g/dL Globulin gm/dL Albumin/Globulin Ratio (1.1-1.8) Blood Type O POSITIVE Antibody Screen Negative BBK History Checked Patient has bt 09/17/17 09/17/17 09/17/17 Range/Units 06:00 05:45 05:45 WBC 18.8 H (4.5-11.0) 10^3/ul RBC 2.84 L (3.5-6.1) 10^6/uL Hgb 8.6 L (14.0-18.0) g/dL Hct 26.4 L (42.0-52.0) % MCV 93.0 (80.0-105.0) fl MCH 30.3 (25.0-35.0) pg MCHC 32.6 (31.0-37.0) g/dl RDW 17.5 H (11.5-14.5) % Plt Count 114 L (120.0-450.0) 10^3/uL MPV 12.3 H (7.0-11.0) fl Gran % 74.1 H (50.0-68.0) % Lymph % (Auto) 12.5 L (22.0-35.0) % [place] % (Auto) 11.8 H (1.0-6.0) % Eos % (Auto) 0.3 L (1.5-5.0) % Baso % (Auto) 1.3 (0.0-3.0) % Gran # 13.90 H (1.4-6.5) Lymph # (Auto) 2.4 (1.2-3.4) [place] # (Auto) 2.2 H (0.1-0.6) Eos # (Auto) 0.1 (0.0-0.7) Baso # (Auto) 0.25 (0.0-2.0) K/mm3 PT 14.2 H (9.4-12.5) SECONDS INR 1.23 H (0.93-1.08) APTT 32.4 (25.1-36.5) Seconds pCO2 27 L (35-45) mm/Hg pO2 94.0 (80-100) mm/Hg HCO3 17.5 L (21-28) mmol/L ABG pH 7.42 (7.35-7.45) ABG Total CO2 18.3 L (22-28) mmol.L ABG O2 Saturation 99.1 H (95-98) % ABG O2 Content 12.1 L (15-23) ML/dl ABG Base Excess -6.0 L (-2.0-3.0) mmol/L ABG Hemoglobin 8.8 L (11.7-17.4) g/dL ABG Carboxyhemoglobin 2.2 H (0.5-1.5) % POC ABG HHb (Measured) 0.9 (0-5) % ABG Methemoglobin 0.5 (0.0-3.0) % ABG O2 Capacity 12.2 L (16-24) mL/dl Hgb O2 Saturation 96.4 (95.0-98.0) % FiO2 35.0 % Sodium (132-148) mmol/L Potassium (3.6-5.0) mmol/L Chloride (98-107) mmol/L Carbon Dioxide (21-33) mmol/L Anion Gap (10-20) BUN (7-21) mg/dL Creatinine (0.8-1.5) mg/dl Est GFR ( Amer) Est GFR (Non-Af Amer) POC Glucose (mg/dL) (65-110) mg/dL Random Glucose (70-110) mg/dL Calcium (8.4-10.5) mg/dL Phosphorus (2.5-4.5) mg/dL Magnesium (1.7-2.2) mg/dL Total Bilirubin (0.2-1.3) mg/dL AST (17-59) U/L ALT (7-56) U/L Alkaline Phosphatase (38-126) U/L Total Protein (5.8-8.3) g/dL Albumin (3.0-4.8) g/dL Globulin gm/dL Albumin/Globulin Ratio (1.1-1.8) Blood Type Antibody Screen BBK History Checked 09/17/17 09/16/17 09/16/17 Range/Units 05:45 23:09 18:46 WBC (4.5-11.0) 10^3/ul RBC (3.5-6.1) 10^6/uL Hgb (14.0-18.0) g/dL Hct (42.0-52.0) % MCV (80.0-105.0) fl MCH (25.0-35.0) pg MCHC (31.0-37.0) g/dl RDW (11.5-14.5) % Plt Count (120.0-450.0) 10^3/uL MPV (7.0-11.0) fl Gran % (50.0-68.0) % Lymph % (Auto) (22.0-35.0) % [place] % (Auto) (1.0-6.0) % Eos % (Auto) (1.5-5.0) % Baso % (Auto) (0.0-3.0) % Gran # (1.4-6.5) Lymph # (Auto) (1.2-3.4) [place] # (Auto) (0.1-0.6) Eos # (Auto) (0.0-0.7) Baso # (Auto) (0.0-2.0) K/mm3 PT (9.4-12.5) SECONDS INR (0.93-1.08) APTT (25.1-36.5) Seconds pCO2 (35-45) mm/Hg pO2 (80-100) mm/Hg HCO3 (21-28) mmol/L ABG pH (7.35-7.45) ABG Total CO2 (22-28) mmol.L ABG O2 Saturation (95-98) % ABG O2 Content (15-23) ML/dl ABG Base Excess (-2.0-3.0) mmol/L ABG Hemoglobin (11.7-17.4) g/dL ABG Carboxyhemoglobin (0.5-1.5) % POC ABG HHb (Measured) (0-5) % ABG Methemoglobin (0.0-3.0) % ABG O2 Capacity (16-24) mL/dl Hgb O2 Saturation (95.0-98.0) % FiO2 % Sodium 143 (132-148) mmol/L Potassium 3.8 (3.6-5.0) mmol/L Chloride 110 H (98-107) mmol/L Carbon Dioxide 19 L (21-33) mmol/L Anion Gap 17 (10-20) BUN 70 H (7-21) mg/dL Creatinine 3.8 H (0.8-1.5) mg/dl Est GFR ( Amer) 21 Est GFR (Non-Af Amer) 17 POC Glucose (mg/dL) 172 H 267 H (65-110) mg/dL Random Glucose 386 H* (70-110) mg/dL Calcium 9.4 (8.4-10.5) mg/dL Phosphorus 2.8 (2.5-4.5) mg/dL Magnesium 1.7 (1.7-2.2) mg/dL Total Bilirubin 1.3 (0.2-1.3) mg/dL AST 49 (17-59) U/L ALT 58 H (7-56) U/L Alkaline Phosphatase 250 H D (38-126) U/L Total Protein 5.6 L (5.8-8.3) g/dL Albumin 2.5 L (3.0-4.8) g/dL Globulin 3.1 gm/dL Albumin/Globulin Ratio 0.8 L (1.1-1.8) Blood Type Antibody Screen BBK History Checked 09/16/17 Range/Units 12:15 WBC 15.9 H (4.5-11.0) 10^3/ul RBC 2.82 L (3.5-6.1) 10^6/uL Hgb 8.7 L (14.0-18.0) g/dL Hct 26.1 L (42.0-52.0) % MCV 92.6 (80.0-105.0) fl MCH 30.9 (25.0-35.0) pg MCHC 33.3 (31.0-37.0) g/dl RDW 16.8 H (11.5-14.5) % Plt Count 67 L (120.0-450.0) 10^3/uL MPV 10.9 (7.0-11.0) fl Gran % 78.8 H (50.0-68.0) % Lymph % (Auto) 10.2 L (22.0-35.0) % [place] % (Auto) 9.3 H (1.0-6.0) % Eos % (Auto) 0.2 L (1.5-5.0) % Baso % (Auto) 1.5 (0.0-3.0) % Gran # 12.50 H (1.4-6.5) Lymph # (Auto) 1.6 (1.2-3.4) [place] # (Auto) 1.5 H (0.1-0.6) Eos # (Auto) 0.0 (0.0-0.7) Baso # (Auto) 0.23 (0.0-2.0) K/mm3 PT (9.4-12.5) SECONDS INR (0.93-1.08) APTT (25.1-36.5) Seconds pCO2 (35-45) mm/Hg pO2 (80-100) mm/Hg HCO3 (21-28) mmol/L ABG pH (7.35-7.45) ABG Total CO2 (22-28) mmol.L ABG O2 Saturation (95-98) % ABG O2 Content (15-23) ML/dl ABG Base Excess (-2.0-3.0) mmol/L ABG Hemoglobin (11.7-17.4) g/dL ABG Carboxyhemoglobin (0.5-1.5) % POC ABG HHb (Measured) (0-5) % ABG Methemoglobin (0.0-3.0) % ABG O2 Capacity (16-24) mL/dl Hgb O2 Saturation (95.0-98.0) % FiO2 % Sodium (132-148) mmol/L Potassium (3.6-5.0) mmol/L Chloride (98-107) mmol/L Carbon Dioxide (21-33) mmol/L Anion Gap (10-20) BUN (7-21) mg/dL Creatinine (0.8-1.5) mg/dl Est GFR ( Amer) Est GFR (Non-Af Amer) POC Glucose (mg/dL) (65-110) mg/dL Random Glucose (70-110) mg/dL Calcium (8.4-10.5) mg/dL Phosphorus (2.5-4.5) mg/dL Magnesium (1.7-2.2) mg/dL Total Bilirubin (0.2-1.3) mg/dL AST (17-59) U/L ALT (7-56) U/L Alkaline Phosphatase (38-126) U/L Total Protein (5.8-8.3) g/dL Albumin (3.0-4.8) g/dL Globulin gm/dL Albumin/Globulin Ratio (1.1-1.8) Blood Type Antibody Screen BBK History Checked Laboratory Results - last 24 hr 09/16/17 09/16/17 09/16/17 12:15 18:46 23:09 WBC 15.9 H RBC 2.82 L Hgb 8.7 L Hct 26.1 L MCV 92.6 MCH 30.9 MCHC 33.3 RDW 16.8 H Plt Count 67 L MPV 10.9 Gran % 78.8 H Lymph % (Auto) 10.2 L [place] % (Auto) 9.3 H Eos % (Auto) 0.2 L Baso % (Auto) 1.5 Gran # 12.50 H Lymph # (Auto) 1.6 [place] # (Auto) 1.5 H Eos # (Auto) 0.0 Baso # (Auto) 0.23 PT INR APTT pCO2 pO2 HCO3 ABG pH ABG Total CO2 ABG O2 Saturation ABG O2 Content ABG Base Excess ABG Hemoglobin ABG Carboxyhemoglobin POC ABG HHb (Measured) ABG Methemoglobin ABG O2 Capacity Hgb O2 Saturation FiO2 Sodium Potassium Chloride Carbon Dioxide Anion Gap BUN Creatinine Est GFR ( Amer) Est GFR (Non-Af Amer) POC Glucose (mg/dL) 267 H 172 H Random Glucose Calcium Phosphorus Magnesium Total Bilirubin AST ALT Alkaline Phosphatase Total Protein Albumin Globulin Albumin/Globulin Ratio Blood Type Antibody Screen BBK History Checked 09/17/17 09/17/17 09/17/17 05:45 05:45 05:45 WBC 18.8 H RBC 2.84 L Hgb 8.6 L Hct 26.4 L MCV 93.0 MCH 30.3 MCHC 32.6 RDW 17.5 H Plt Count 114 L MPV 12.3 H Gran % 74.1 H Lymph % (Auto) 12.5 L [place] % (Auto) 11.8 H Eos % (Auto) 0.3 L Baso % (Auto) 1.3 Gran # 13.90 H Lymph # (Auto) 2.4 [place] # (Auto) 2.2 H Eos # (Auto) 0.1 Baso # (Auto) 0.25 PT 14.2 H INR 1.23 H APTT 32.4 pCO2 pO2 HCO3 ABG pH ABG Total CO2 ABG O2 Saturation ABG O2 Content ABG Base Excess ABG Hemoglobin ABG Carboxyhemoglobin POC ABG HHb (Measured) ABG Methemoglobin ABG O2 Capacity Hgb O2 Saturation FiO2 Sodium 143 Potassium 3.8 Chloride 110 H Carbon Dioxide 19 L Anion Gap 17 BUN 70 H Creatinine 3.8 H Est GFR ( Amer) 21 Est GFR (Non-Af Amer) 17 POC Glucose (mg/dL) Random Glucose 386 H* Calcium 9.4 Phosphorus 2.8 Magnesium 1.7 Total Bilirubin 1.3 AST 49 ALT 58 H Alkaline Phosphatase 250 H D Total Protein 5.6 L Albumin 2.5 L Globulin 3.1 Albumin/Globulin Ratio 0.8 L Blood Type Antibody Screen BBK History Checked 09/17/17 09/17/17 09/17/17 06:00 06:45 07:16 WBC RBC Hgb Hct MCV MCH MCHC RDW Plt Count MPV Gran % Lymph % (Auto) [place] % (Auto) Eos % (Auto) Baso % (Auto) Gran # Lymph # (Auto) [place] # (Auto) Eos # (Auto) Baso # (Auto) PT INR APTT pCO2 27 L pO2 94.0 HCO3 17.5 L ABG pH 7.42 ABG Total CO2 18.3 L ABG O2 Saturation 99.1 H ABG O2 Content 12.1 L ABG Base Excess -6.0 L ABG Hemoglobin 8.8 L ABG Carboxyhemoglobin 2.2 H POC ABG HHb (Measured) 0.9 ABG Methemoglobin 0.5 ABG O2 Capacity 12.2 L Hgb O2 Saturation 96.4 FiO2 35.0 Sodium Potassium Chloride Carbon Dioxide Anion Gap BUN Creatinine Est GFR ( Amer) Est GFR (Non-Af Amer) POC Glucose (mg/dL) 410 H* Random Glucose Calcium Phosphorus Magnesium Total Bilirubin AST ALT Alkaline Phosphatase Total Protein Albumin Globulin Albumin/Globulin Ratio Blood Type O POSITIVE Antibody Screen Negative BBK History Checked Patient has bt 09/17/17 11:09 WBC RBC Hgb Hct MCV MCH MCHC RDW Plt Count MPV Gran % Lymph % (Auto) [place] % (Auto) Eos % (Auto) Baso % (Auto) Gran # Lymph # (Auto) [place] # (Auto) Eos # (Auto) Baso # (Auto) PT INR APTT pCO2 pO2 HCO3 ABG pH ABG Total CO2 ABG O2 Saturation ABG O2 Content ABG Base Excess ABG Hemoglobin ABG Carboxyhemoglobin POC ABG HHb (Measured) ABG Methemoglobin ABG O2 Capacity Hgb O2 Saturation FiO2 Sodium Potassium Chloride Carbon Dioxide Anion Gap BUN Creatinine Est GFR ( Amer) Est GFR (Non-Af Amer) POC Glucose (mg/dL) 439 H* Random Glucose Calcium Phosphorus Magnesium Total Bilirubin AST ALT Alkaline Phosphatase Total Protein Albumin Globulin Albumin/Globulin Ratio Blood Type Antibody Screen BBK History Checked Assessment/Plan - Assessment and Plan (Free Text) Plan: Patient seen and examined, on rounds with resident, agree with note with following additions/exceptions: Patient is 47yo male PMHx of DM2, HTN and alcohol abuse found to be in septic shock , pancreatitis, aspiration pneumonia, IRWIN, transaminitis, seizures, metabolic acidosis, thrombocytopenia likely secondary to alcohol abuse, s/p cardiac arrest s/p ROSC and respiratory failure/ARDS. Currently afebrile, HD stable, comfortable, in NAD. On exam, lethargic but responds and opens eyes to painful stimuli. Off pressors , FiO2 requirements are downtrending, ARDS resolved Tolerating HD over last 5 days well. Awaiting trach/PEG, Ltach. ARDS, resolved IRWIN PNA Pancreatitis Seizure Disorder EtOH abuse s/p Cardiac Arrest s/p ROSC Recommend: - low tidal vol ventilation, goal plateau <30 - cont with broad spectrum antibiotics as per ID, cover for Cdiff - BP control - Seizure Ppx - follow up neurology - follow up nephro - Trach/PEG possibly tomorrow - FS control - monitor LFTs - Feeds - monitor UOP - GI ppx - DVT ppx Patient at high risk for morbidity and mortality Critical care time 45 minutes
[2017-09-17] MEDS: Budesonide 0.5 mg/2 ml Inhal Susp UD IH SCH ×2 (07:57→20:26)
--- NOTE | 2017-09-17 08:23 | PN ---
DATE: 09/14/2017 SUBJECTIVE: Patient is sedated, unresponsive to verbal stimuli, received a dose of Ativan last night. He remains on the ventilator. OBJECTIVE: VITAL SIGNS: Reveal temperature of 98.5, blood pressure 190/116, heart rate of 118. HEENT: Reveal sclerae to be white. Conjunctivae pale. He has an endotracheal tube in his oral mucosa. He has an NG tube in his nose. CHEST: Reveal lungs to have distant breath sounds. HEART: Reveals a tachycardia. ABDOMEN: Softly distended, nontender. EXTREMITIES: Show no edema. LABORATORY DATA: Reveal hemoglobin of 9, white blood cell count 17.2, platelet count 44,000. BUN 50, creatinine 4.1, blood sugar of 223. Total bilirubin 2.9, AST down to 112, ALT 85, alkaline phosphatase of 151. IMPRESSION: 1. Respiratory failure. 2. Status post cardiac arrest. 3. Seizure disorder. 4. Alcoholic hepatitis with liver enzymes trending downward. The patient also had a component of medication toxicity as he did receive several doses of Depakote. 5. Anemia. 6. Acute kidney injury. RECOMMENDATIONS: 1. Patient is to have a tracheostomy as well as a surgically placed gastrostomy tube. 2. His liver enzymes are trending downward. 3. He is to have hemodialysis. A [place] catheter was recently placed. 4. His long-term prognosis is extremely poor. 5. Can start enteral feedings through surgically placed gastrostomy tube. Bob Borden MD
--- NOTE | 2017-09-17 08:57 | CP.PCM.PN ---
<Jay Harden - Last Filed: 09/17/17 14:32> Subjective - Date & Time of Evaluation Date of Evaluation: 09/17/17 Time of Evaluation: 08:57 - Subjective Subjective: Jay Harden PGY1 IM Progress Note Patient was seen and examined at bedside in ICU. Patient remains intubated and is responsive to pain. Patient is off pressors. There is loose brown stools in rectal tube bag and lazo in. Patient ROS unobtainable. Objective - Vital Signs/Intake and Output Vital Signs (last 24 hours): Temp Pulse Resp BP Pulse Ox 100.9 F H 102 H 26 H 145/92 H 99 09/17/17 07:21 09/17/17 08:30 09/16/17 11:45 09/17/17 08:30 09/17/17 08:30 Intake and Output: 09/17/17 09/17/17 06:59 18:59 Intake Total 773 Output Total 900 Balance -127 - Medications Medications: Current Medications Artificial Tears (Refresh Opth Soln) 0.3 ml OU Q12 PRN PRN Reason: Dry eyes Budesonide (Pulmicort Respules) 0.5 mg IH [id number] [facility] Last Admin: 09/17/17 07:57 Dose: 0.5 mg Clonidine HCl (Catapres Tts1 0.1 Mg/24 Hr) 1 patch TD Q7D@1000 [facility] Last Admin: 09/15/17 14:50 Dose: 1 patch Famotidine (Pepcid) 20 mg IVP BID [facility] Last Admin: 09/16/17 19:15 Dose: 20 mg Folic Acid (Folic Acid) 1 mg NG DAILY [facility] Last Admin: 09/16/17 10:17 Dose: 1 mg Hydralazine HCl (Apresoline) 10 mg IVP Q6 PRN PRN Reason: BP> 180 Last Admin: 09/15/17 22:36 Dose: 10 mg Levetiracetam 1,000 mg/ Sodium (Chloride) 110 mls @ 460 mls/hr IV Q12 [facility] Last Admin: 09/16/17 22:53 Dose: 460 mls/hr Propofol (Diprivan) 1,000 mg in 100 mls @ 2.062 mls/hr IV .Q24H PRN; Protocol; 5 MCG/KG/MIN PRN Reason: TITRATE PER MD ORDER Last Admin: 09/17/17 05:24 Dose: 40 mcg/kg/min, 16.493 mls/hr Metronidazole (Flagyl) 500 mg in 100 mls @ 100 mls/hr IVPB Q8 [facility] PRN Reason: Protocol Last Admin: 09/17/17 05:15 Dose: 100 mls/hr Insulin Human Lispro (Humalog High) 0 units SC ACHS [facility] PRN Reason: Protocol Last Admin: 09/16/17 23:12 Dose: Not Given Levalbuterol HCl (Xopenex) 0.63 mg IH [id number] [facility] Last Admin: 09/17/17 07:56 Dose: 0.63 mg Lorazepam (Ativan) 2 mg IVP Q3H PRN; Protocol PRN Reason: Agitation Last Admin: 09/14/17 10:15 Dose: 2 mg Multivitamins/Vitamin C (Multi-Delyn Liquid) 15 ml PO 0800 [facility] Last Admin: 09/16/17 10:17 Dose: 15 ml Thiamine HCl (Vitamin B1 Inj) 100 mg IV DAILY [facility] Last Admin: 09/16/17 10:17 Dose: 100 mg Tobramycin/Dexamethasone (Tobradex Opht Susp) 0 ml OU QID [facility] Last Admin: 09/16/17 23:28 Dose: 1 drop Vancomycin HCl (Vancocin 25 Mg/Ml (Oral Use)) 500 mg PO Q6 [facility] PRN Reason: Protocol Last Admin: 09/17/17 07:00 Dose: 500 mg - Labs Labs: 09/17/17 05:45 09/17/17 05:45 PT 14.2 SECONDS (9.4-12.5) H 09/17/17 05:45 INR 1.23 (0.93-1.08) H 09/17/17 05:45 APTT 32.4 Seconds (25.1-36.5) 09/17/17 05:45 - Constitutional Appears: No Acute Distress - Head Exam Head Exam: NORMAL INSPECTION - Eye Exam Eye Exam: PERRL, Scleral icterus - ENT Exam Additional comments: intubated - Neck Exam Additional comments: R IJ TLC in place - Respiratory Exam Respiratory Exam: Rales (b/l bases ), Rhonchi (b/l bases R>L). absent: Decreased Breath Sounds Additional comments: intubated - Cardiovascular Exam Cardiovascular Exam: Tachycardia, +S1, +S2 - GI/Abdominal Exam GI & Abdominal Exam: Distended, Soft, Normal Bowel Sounds. absent: Guarding - Rectal Exam Additional comments: rectal tube draining brown loose stools, decreased in quantity than prior exams - Exam Additional comments: penile swelling lazo catheter in place - Extremities Exam Extremities Exam: absent: Pedal Edema Additional comments: UE swelling L hand ruptured bullous - Back Exam Back Exam: NORMAL INSPECTION - Neurological Exam Neurological Exam: Altered. absent: Awake Additional comments: remains sedated - Psychiatric Exam Additional comments: was not obtained due to sedation - Skin Skin Exam: Normal Color, Warm Assessment and Plan - Assessment and Plan (Free Text) Assessment: 47yo M with a PMH of DM2, HTN and alcohol use who presented with URI symptoms such as cough, shortness of breath, palpitations. Last alcoholic drink was night prior to admission. Patient was admitted for septic shock (with lactate of 7.7 on presentation), high anion gap metabolic acidosis, acute pancreatitis 2 /2 ETOH vs triglycerides, IRWIN vs CKD, elevated LFTs likely 2/2 ETOH, elevated BNP, hyponatremia, and hypokalemia. s/p cardiac arrest and ROSC. Upon ROSC, patient vomited and likely aspirated, but was turned to the side and suctioned. Intubated and on vent with sedation in ICU. Patient initially required pressors to maintain BP but is no longer needing them. Remains on Keppra for seizure ppx. IRWIN did not improve, so patient required temporary dialysis (3 sessions so far; requiring session today). IR was consulted regarding placement of Permacath for termite treater helper dialysis. Plan: 1. Septic shock likely 2/2 pancreatitis, resolved - continue ICU monitoring due to unstable vitals and altered mental state - cont tube feeds - CT Findings on admission were concerning for acute pancreatitis w/o ductal dilatation, calcifications or pseudocyst, and alcoholic liver steatosis - BP maintained off pressors currently, cont to monitor - fevers today, maintain normothermia - cont Flagyl and PO Vanc for +cdiff in stool culture - start Merrem for new fevers - cont contact precautions - tylenol supp PRN - blood, urine, trachea cultures showed no growth - Monitor vitals - Maintain MAP > 65 - ID consulted for management of septic shock, recs appreciated - GI consulted for alcoholic pancreatitis and +stool occult blood, recs appreciated - Surgery consulted for abdominal distention and for trach/peg placement, recs appreciated - Palliative care consulted for advanced directives, patient will be transferred to senior living acute center 2. AMS 2/2 Anion gap metabolic acidosis likely 2/2 lactic acidosis and ETOH - s/p cardiac arrest 09/08 - plan for tach/peg tomorrow per Surgery - patient was intubated to protect airway due to hypoxemia and vomiting to reduce risk of aspiration; daily vent weaning trials - CT Head showed no acute intracranial abnormalities and mild chronic microangiopathic changes, w/ moderate global parencyhmal volume loss - ativan prn agitation added - Maintain SaO2 > 90% - EEG was normal - cont Keppra for seizure ppx - Neurology consulted, recs appreciated - Cardiology consulted, recs appreciated 3. IRWIN vs CKD a/w Hypophosphatemia - 4th dialysis session today - IR consulted for placement of Permacath for senior living dialysis - FENa 3.2 indicating ATN - given septic shock, likely component of pre-renal and intrinsic ischemic ATN ( coarse granular casts seen on UA) - avoid nephrotoxins - Nephrology consulted, recs appreciated 4. HTN - clonidine patch - hydralazine prn - monitor VS 5. Hypergylcemia - Levemir 5u HS - ISS - TSH and A1C WNL 6. 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 Transaminitis likely w/ underlying liver disease, improving - likely 2/2 shock liver and chronic ETOH use since INR is elevated - cont thiamine, MV and folic acid - hepatitis panel negative - HIV pending - continue to monitor 8. Poor prognosis - to meet with to establish understanding of condition - Palliative care consulted - patient for LTAC following tach/peg and permacath placement Patient was seen, examined and discussed with attending, Dr. Jeannette Harden PGY1 Pager # [phone] <Tatum Machado - Last Filed: 09/17/17 16:55> Objective - Vital Signs/Intake and Output Vital Signs (last 24 hours): Temp Pulse Resp BP Pulse Ox 100.6 F H 99 H 26 H 141/90 98 09/17/17 11:45 09/17/17 11:45 09/16/17 11:45 09/17/17 11:45 09/17/17 11:45 Intake and Output: 09/17/17 09/17/17 06:59 18:59 Intake Total 773 100 Output Total 900 Balance -127 100 - Medications Medications: Current Medications Artificial Tears (Refresh Opth Soln) 0.3 ml OU Q12 PRN PRN Reason: Dry eyes Last Admin: 09/17/17 11:07 Dose: 0.3 ml Budesonide (Pulmicort Respules) 0.5 mg IH [id number] [facility] Last Admin: 09/17/17 07:57 Dose: 0.5 mg Clonidine HCl (Catapres Tts1 0.1 Mg/24 Hr) 1 patch TD Q7D@1000 [facility] Last Admin: 09/15/17 14:50 Dose: 1 patch Famotidine (Pepcid) 20 mg IVP BID [facility] Last Admin: 09/17/17 11:00 Dose: 20 mg Folic Acid (Folic Acid) 1 mg NG DAILY [facility] Last Admin: 09/17/17 11:06 Dose: 1 mg Hydralazine HCl (Apresoline) 10 mg IVP Q6 PRN PRN Reason: BP> 180 Last Admin: 09/15/17 22:36 Dose: 10 mg Levetiracetam 1,000 mg/ Sodium (Chloride) 110 mls @ 460 mls/hr IV Q12 [facility] Last Admin: 09/17/17 11:03 Dose: 460 mls/hr Propofol (Diprivan) 1,000 mg in 100 mls @ 2.062 mls/hr IV .Q24H PRN; Protocol; 5 MCG/KG/MIN PRN Reason: TITRATE PER MD ORDER Last Admin: 09/17/17 10:49 Dose: 40 mcg/kg/min, 16.493 mls/hr Metronidazole (Flagyl) 500 mg in 100 mls @ 100 mls/hr IVPB Q8 [facility] PRN Reason: Protocol Last Admin: 09/17/17 05:15 Dose: 100 mls/hr Meropenem 500 mg/ Sodium (Chloride) 100 mls @ 100 mls/hr IVPB Q12 [facility] PRN Reason: Protocol Stop: 09/24/17 10:16 Last Admin: 09/17/17 11:01 Dose: 100 mls/hr Insulin Detemir (Levemir) 5 unit SC HS [facility] Insulin Human Lispro (Humalog High) 0 units SC ACHS [facility] PRN Reason: Protocol Last Admin: 09/16/17 23:12 Dose: Not Given Levalbuterol HCl (Xopenex) 0.63 mg IH [id number] [facility] Last Admin: 09/17/17 13:07 Dose: 0.63 mg Lorazepam (Ativan) 2 mg IVP Q3H PRN; Protocol PRN Reason: Agitation Last Admin: 09/14/17 10:15 Dose: 2 mg Multivitamins/Vitamin C (Multi-Delyn Liquid) 15 ml PO 0800 [facility] Last Admin: 09/17/17 11:00 Dose: 15 ml Pantoprazole Sodium (Protonix Inj) 40 mg IVP Q12 [facility] Thiamine HCl (Vitamin B1 Inj) 100 mg IV DAILY [facility] Last Admin: 09/17/17 10:59 Dose: 100 mg Tobramycin/Dexamethasone (Tobradex Opht Susp) 0 ml OU QID [facility] Last Admin: 09/17/17 10:00 Dose: 1 drop Vancomycin HCl (Vancocin 25 Mg/Ml (Oral Use)) 500 mg PO Q6 [facility] PRN Reason: Protocol Last Admin: 09/17/17 11:02 Dose: 500 mg Vitamin A (Vitamin A & D Oint Ud Foilpak) 1 ea TOP Q8 PRN PRN Reason: Dry skin - Labs Labs: 09/17/17 05:45 09/17/17 05:45 PT 14.2 SECONDS (9.4-12.5) H 09/17/17 05:45 INR 1.23 (0.93-1.08) H 09/17/17 05:45 APTT 32.4 Seconds (25.1-36.5) 09/17/17 05:45 Attending/Attestation - Attestation I have personally seen and examined this patient.: Yes I have fully participated in the care of the patient.: Yes I have reviewed all pertinent clinical information, including history, physical exam and plan: Yes Notes (Text): 09/17/17 16:49 Attending note; Patient seen and examined with resident in ICU. Patient is a 47 year male with history of alcohol abuse, type 2 diabetes who came initially for abdominal pain and dyspnea. He was found to be severely acidotic and had elevated lactic acid level. He was diagnosed with pancreatitis. Currently intubated. He is off sedation and pressors. He is responsive to painful stimuli however he is not able to follow commands. CT head showed volume loss. CXR revealed improvement in infiltrate. Leukocytosis is improving. Blood and urine culture negative. He continues to have diarrhea. Rectal tube is in. Continue PO vancomycin and flagyl for Cdiff colitis. acute kidney injury due to SIRS vs ATN/oliguric renal failure ;Currently getting hemodialysis. Case discussed with nephrology in detail. Has a right femoral dialysis catheter. Will get hemodialysis today. IR contacted for permacath placement. Continue seizure precautions, keppra, thiamine, folate and MVI. EEG result normal.Neurology evaluation appreciated . Repeat EEG ordered. Elevated LFT due to shock liver/alcohol abuse. anemia and thrombocytopenia which can be due to alcohol induced BM suppression vs sepsis induced coagulopathy. He was given 3 units of platelets. Case discussed with surgery Dr. Pablo in detail. Plan for trach and PEG placement tomorrow. Case discussed with transition social worker for LTAC placement. Overall prognosis is poor.
[2017-09-17] MEDS: Tobramycin/Dexamethasone (Tobradex) Opth Sol (2.5 ml) OU SCH ×4 (10:00→21:46)
--- NOTE | 2017-09-17 10:16 | CP.PCM.PN ---
Subjective - Date & Time of Evaluation Date of Evaluation: 09/17/17 Time of Evaluation: 10:10 - Subjective Subjective: Patient continues to be on the ventilator, now developed fever this morning. Objective - Vital Signs/Intake and Output Vital Signs (last 24 hours): Temp Pulse Resp BP Pulse Ox 100.9 F H 102 H 26 H 145/92 H 99 09/17/17 07:21 09/17/17 08:30 09/16/17 11:45 09/17/17 08:30 09/17/17 08:30 Intake and Output: 09/17/17 09/17/17 06:59 18:59 Intake Total 773 Output Total 900 Balance -127 - Medications Medications: Current Medications Artificial Tears (Refresh Opth Soln) 0.3 ml OU Q12 PRN PRN Reason: Dry eyes Budesonide (Pulmicort Respules) 0.5 mg IH [id number] [facility] Last Admin: 09/17/17 07:57 Dose: 0.5 mg Clonidine HCl (Catapres Tts1 0.1 Mg/24 Hr) 1 patch TD Q7D@1000 [facility] Last Admin: 09/15/17 14:50 Dose: 1 patch Famotidine (Pepcid) 20 mg IVP BID [facility] Last Admin: 09/16/17 19:15 Dose: 20 mg Folic Acid (Folic Acid) 1 mg NG DAILY [facility] Last Admin: 09/16/17 10:17 Dose: 1 mg Hydralazine HCl (Apresoline) 10 mg IVP Q6 PRN PRN Reason: BP> 180 Last Admin: 09/15/17 22:36 Dose: 10 mg Levetiracetam 1,000 mg/ Sodium (Chloride) 110 mls @ 460 mls/hr IV Q12 [facility] Last Admin: 09/16/17 22:53 Dose: 460 mls/hr Propofol (Diprivan) 1,000 mg in 100 mls @ 2.062 mls/hr IV .Q24H PRN; Protocol; 5 MCG/KG/MIN PRN Reason: TITRATE PER MD ORDER Last Admin: 09/17/17 05:24 Dose: 40 mcg/kg/min, 16.493 mls/hr Metronidazole (Flagyl) 500 mg in 100 mls @ 100 mls/hr IVPB Q8 [facility] PRN Reason: Protocol Last Admin: 09/17/17 05:15 Dose: 100 mls/hr Insulin Human Lispro (Humalog High) 0 units SC ACHS [facility] PRN Reason: Protocol Last Admin: 09/16/17 23:12 Dose: Not Given Levalbuterol HCl (Xopenex) 0.63 mg IH [id number] [facility] Last Admin: 09/17/17 07:56 Dose: 0.63 mg Lorazepam (Ativan) 2 mg IVP Q3H PRN; Protocol PRN Reason: Agitation Last Admin: 09/14/17 10:15 Dose: 2 mg Multivitamins/Vitamin C (Multi-Delyn Liquid) 15 ml PO 0800 [facility] Last Admin: 09/16/17 10:17 Dose: 15 ml Thiamine HCl (Vitamin B1 Inj) 100 mg IV DAILY [facility] Last Admin: 09/16/17 10:17 Dose: 100 mg Tobramycin/Dexamethasone (Tobradex Opht Susp) 0 ml OU QID [facility] Last Admin: 09/16/17 23:28 Dose: 1 drop Vancomycin HCl (Vancocin 25 Mg/Ml (Oral Use)) 500 mg PO Q6 [facility] PRN Reason: Protocol Last Admin: 09/17/17 07:00 Dose: 500 mg - Labs Labs: 09/17/17 05:45 09/17/17 05:45 PT 14.2 SECONDS (9.4-12.5) H 09/17/17 05:45 INR 1.23 (0.93-1.08) H 09/17/17 05:45 APTT 32.4 Seconds (25.1-36.5) 09/17/17 05:45 - Constitutional Appears: Other (intubated and sedated) - Head Exam Head Exam: NORMAL INSPECTION - ENT Exam Additional comments: ET tube in place - Respiratory Exam Respiratory Exam: Decreased Breath Sounds - Cardiovascular Exam Cardiovascular Exam: +S1, +S2 - GI/Abdominal Exam GI & Abdominal Exam: Soft. absent: Tenderness Assessment and Plan - Assessment and Plan (Free Text) Plan: Assessment new onset Systemic Inflammatory Reponse Syndrome on top of VDRF with severe sepsis with renal failure due to C. diff. associated diarrhea on top of acute alcoholic pancreatitis, R/O new onset sepsis with increasing leukocytosis Thrombocytopenia with alcoholic liver disease DM HTN Plan continue PO Vancomycin day 8 for 10-14 days and IV Flagyl since the patient continues to have diarrhea will repeat blood, sputum, urine cx, PCT, CXR and give a dose of IV Vanco and start Merrem overall prognosis is poor
[2017-09-17] MEDS ORDERED: Vancomycin 1gm in NS 250ml 1 GM/250 ML BAG IVPB STA (10:17)
--- NOTE | 2017-09-17 10:33 | RAD ---
HISTORY: intubated on vent COMPARISON: 09/14/2017 FINDINGS: LUNGS: Diffuse hazy infiltrates are seen which have increased. Central lines and tubes are unchanged PLEURA: No significant pleural effusion identified, no pneumothorax apparent. CARDIOVASCULAR: Normal. OSSEOUS STRUCTURES: No significant abnormalities. VISUALIZED UPPER ABDOMEN: Normal. OTHER FINDINGS: None. IMPRESSION: Diffuse hazy infiltrates are seen which have increased. Central lines and tubes are unchanged
--- NOTE | 2017-09-17 10:57 | CP.PCM.PN ---
Subjective - Date & Time of Evaluation Date of Evaluation: 09/17/17 Time of Evaluation: 10:54 - Subjective Subjective: renal follow up note Please call us @ [phone] if any qs or concerns. thank you Assessment: critical Acute Kidney Injury (N17.9) likely due to pre-renal state, SIRS, Acute tubular necrosis Hyponatermia, hypokalemia DM, HTN, chronic alcoholism, hepatic dysfunction acute pancreatitis with hyperglycemia HAGMA with lactic acidosis + alcohol ketoacidosis and starvation ketoacidosis Thrombocytopenia Hypomagnesemia, hypophosphatemia s/p cardiac arrest, seizure ARDS Plan plan hd today recommend consult IR for permacath placement lytes reviewed anemia stable monitor phos levels dm: per primary team d/w primary team S: seen and examined remains intubated Physical Examination: General Appearance: ill appearing. on vent Vitals reviewed and noted as below Head; Atraumatic, normocephalic ENT: intubated Neck; supple Lungs: Increased respiratory rate/effort. mechanical bs Heart: Increased rate. s1s2 normal. No rub or gallop. Extremities: 1+ edema. No varicose veins Neurological: Patient is sedated Skin: Warm and dry. Abdomen: Abdomen is soft. Bowel sounds decreased has rectal tube Psych: unable to assess MSK: no joint tenderness Objective - Vital Signs/Intake and Output Vital Signs (last 24 hours): Temp Pulse Resp BP Pulse Ox 100.9 F H 102 H 26 H 145/92 H 99 09/17/17 07:21 09/17/17 08:30 09/16/17 11:45 09/17/17 08:30 09/17/17 08:30 Intake and Output: 09/17/17 09/17/17 06:59 18:59 Intake Total 773 100 Output Total 900 Balance -127 100 - Medications Medications: Current Medications Artificial Tears (Refresh Opth Soln) 0.3 ml OU Q12 PRN PRN Reason: Dry eyes Budesonide (Pulmicort Respules) 0.5 mg IH [id number] [facility] Last Admin: 09/17/17 07:57 Dose: 0.5 mg Clonidine HCl (Catapres Tts1 0.1 Mg/24 Hr) 1 patch TD Q7D@1000 [facility] Last Admin: 09/15/17 14:50 Dose: 1 patch Famotidine (Pepcid) 20 mg IVP BID [facility] Last Admin: 09/16/17 19:15 Dose: 20 mg Folic Acid (Folic Acid) 1 mg NG DAILY [facility] Last Admin: 09/16/17 10:17 Dose: 1 mg Hydralazine HCl (Apresoline) 10 mg IVP Q6 PRN PRN Reason: BP> 180 Last Admin: 09/15/17 22:36 Dose: 10 mg Levetiracetam 1,000 mg/ Sodium (Chloride) 110 mls @ 460 mls/hr IV Q12 [facility] Last Admin: 09/16/17 22:53 Dose: 460 mls/hr Propofol (Diprivan) 1,000 mg in 100 mls @ 2.062 mls/hr IV .Q24H PRN; Protocol; 5 MCG/KG/MIN PRN Reason: TITRATE PER MD ORDER Last Admin: 09/17/17 10:49 Dose: 40 mcg/kg/min, 16.493 mls/hr Metronidazole (Flagyl) 500 mg in 100 mls @ 100 mls/hr IVPB Q8 [facility] PRN Reason: Protocol Last Admin: 09/17/17 05:15 Dose: 100 mls/hr Meropenem 500 mg/ Sodium (Chloride) 100 mls @ 100 mls/hr IVPB Q12 [facility] PRN Reason: Protocol Stop: 09/24/17 10:16 Vancomycin HCl (Vancomycin 1gm) 1 gm in 250 mls @ 167 mls/hr IVPB STAT STA PRN Reason: Protocol Stop: 09/17/17 11:46 Last Admin: 09/17/17 10:49 Dose: 167 mls/hr Insulin Detemir (Levemir) 5 unit SC HS [facility] Insulin Human Lispro (Humalog High) 0 units SC ACHS [facility] PRN Reason: Protocol Last Admin: 09/16/17 23:12 Dose: Not Given Levalbuterol HCl (Xopenex) 0.63 mg IH [id number] [facility] Last Admin: 09/17/17 07:56 Dose: 0.63 mg Lorazepam (Ativan) 2 mg IVP Q3H PRN; Protocol PRN Reason: Agitation Last Admin: 09/14/17 10:15 Dose: 2 mg Multivitamins/Vitamin C (Multi-Delyn Liquid) 15 ml PO 0800 [facility] Last Admin: 09/16/17 10:17 Dose: 15 ml Thiamine HCl (Vitamin B1 Inj) 100 mg IV DAILY [facility] Last Admin: 09/16/17 10:17 Dose: 100 mg Tobramycin/Dexamethasone (Tobradex Opht Susp) 0 ml OU QID [facility] Last Admin: 09/16/17 23:28 Dose: 1 drop Vancomycin HCl (Vancocin 25 Mg/Ml (Oral Use)) 500 mg PO Q6 [facility] PRN Reason: Protocol Last Admin: 09/17/17 07:00 Dose: 500 mg - Labs Labs: 09/17/17 05:45 09/17/17 05:45 PT 14.2 SECONDS (9.4-12.5) H 09/17/17 05:45 INR 1.23 (0.93-1.08) H 09/17/17 05:45 APTT 32.4 Seconds (25.1-36.5) 09/17/17 05:45
[2017-09-17] MEDS: Thiamine 100 mg/ml Inj IV SCH (10:59)
[2017-09-17] MEDS: Multi Vitamins 15 mL UD Oral Solution PO SCH (11:00)
[2017-09-17] MEDS: Meropenem 500 MG in Sodium Chloride 0.9% 100 ML IVPB SCH (11:01)
[2017-09-17] MEDS: levETIRAcetam 1,000 MG in Sodium Chloride 0.9% 100 ML IV SCH ×2 (11:03→21:39)
[2017-09-17] MEDS: Lubricant Eye Drops UD OU PRN ×2 (11:07→21:43)
[2017-09-17] MEDS ORDERED: Vitamins A & D Oint UD Foilpak TOP PRN (11:45)
[2017-09-17] MEDS: Insulin Lispro (HUMAlog) HIGH Coverage SC SCH ×3 (12:00→18:51)
--- NOTE | 2017-09-17 12:53 | CP.PCM.PN ---
Subjective - Date & Time of Evaluation Date of Evaluation: 09/17/17 Time of Evaluation: 12:48 - Subjective Subjective: GENERAL SURGERY CONSULT PROGRESS NOTE FOR DR. OROZCO. Patient has been seen and examined at bedside. Is currently febrile. ROS unattainable because patient is non-verbal. Intubated on mechanical vent (35%, 5 , 18, 450). Patient opens eyes to tactile stimulation. Objective - Vital Signs/Intake and Output Vital Signs (last 24 hours): Temp Pulse Resp BP Pulse Ox 100.6 F H 99 H 26 H 141/90 98 09/17/17 11:45 09/17/17 11:45 09/16/17 11:45 09/17/17 11:45 09/17/17 11:45 Intake and Output: 09/17/17 09/17/17 06:59 18:59 Intake Total 773 100 Output Total 900 Balance -127 100 - Medications Medications: Current Medications Artificial Tears (Refresh Opth Soln) 0.3 ml OU Q12 PRN PRN Reason: Dry eyes Last Admin: 09/17/17 11:07 Dose: 0.3 ml Budesonide (Pulmicort Respules) 0.5 mg IH [id number] [facility] Last Admin: 09/17/17 07:57 Dose: 0.5 mg Clonidine HCl (Catapres Tts1 0.1 Mg/24 Hr) 1 patch TD Q7D@1000 [facility] Last Admin: 09/15/17 14:50 Dose: 1 patch Famotidine (Pepcid) 20 mg IVP BID [facility] Last Admin: 09/17/17 11:00 Dose: 20 mg Folic Acid (Folic Acid) 1 mg NG DAILY [facility] Last Admin: 09/17/17 11:06 Dose: 1 mg Hydralazine HCl (Apresoline) 10 mg IVP Q6 PRN PRN Reason: BP> 180 Last Admin: 09/15/17 22:36 Dose: 10 mg Levetiracetam 1,000 mg/ Sodium (Chloride) 110 mls @ 460 mls/hr IV Q12 [facility] Last Admin: 09/17/17 11:03 Dose: 460 mls/hr Propofol (Diprivan) 1,000 mg in 100 mls @ 2.062 mls/hr IV .Q24H PRN; Protocol; 5 MCG/KG/MIN PRN Reason: TITRATE PER MD ORDER Last Admin: 09/17/17 10:49 Dose: 40 mcg/kg/min, 16.493 mls/hr Metronidazole (Flagyl) 500 mg in 100 mls @ 100 mls/hr IVPB Q8 [facility] PRN Reason: Protocol Last Admin: 09/17/17 05:15 Dose: 100 mls/hr Meropenem 500 mg/ Sodium (Chloride) 100 mls @ 100 mls/hr IVPB Q12 [facility] PRN Reason: Protocol Stop: 09/24/17 10:16 Last Admin: 09/17/17 11:01 Dose: 100 mls/hr Insulin Detemir (Levemir) 5 unit SC HS [facility] Insulin Human Lispro (Humalog High) 0 units SC ACHS [facility] PRN Reason: Protocol Last Admin: 09/16/17 23:12 Dose: Not Given Levalbuterol HCl (Xopenex) 0.63 mg IH [id number] [facility] Last Admin: 09/17/17 07:56 Dose: 0.63 mg Lorazepam (Ativan) 2 mg IVP Q3H PRN; Protocol PRN Reason: Agitation Last Admin: 09/14/17 10:15 Dose: 2 mg Multivitamins/Vitamin C (Multi-Delyn Liquid) 15 ml PO 0800 [facility] Last Admin: 09/17/17 11:00 Dose: 15 ml Pantoprazole Sodium (Protonix Inj) 40 mg IVP Q12 [facility] Thiamine HCl (Vitamin B1 Inj) 100 mg IV DAILY [facility] Last Admin: 09/17/17 10:59 Dose: 100 mg Tobramycin/Dexamethasone (Tobradex Opht Susp) 0 ml OU QID [facility] Last Admin: 09/17/17 10:00 Dose: 1 drop Vancomycin HCl (Vancocin 25 Mg/Ml (Oral Use)) 500 mg PO Q6 [facility] PRN Reason: Protocol Last Admin: 09/17/17 11:02 Dose: 500 mg Vitamin A (Vitamin A & D Oint Ud Foilpak) 1 ea TOP Q8 PRN PRN Reason: Dry skin - Labs Labs: 09/17/17 05:45 09/17/17 05:45 PT 14.2 SECONDS (9.4-12.5) H 09/17/17 05:45 INR 1.23 (0.93-1.08) H 09/17/17 05:45 APTT 32.4 Seconds (25.1-36.5) 09/17/17 05:45 - Additional Findings Additional findings: - Constitutional Appears: No Acute Distress, Older Than Stated Age - Head Exam Head Exam: ATRAUMATIC, NORMOCEPHALIC - ENT Exam Additional comments: ETT and OGT in place - Neck Exam Neck Exam: Normal Inspection - Respiratory Exam Respiratory Exam: Rhonchi. absent: Accessory Muscle Use, Wheezes Additional comments: mechanically ventilated - Cardiovascular Exam Cardiovascular Exam: Tachycardia, REGULAR RHYTHM - GI/Abdominal Exam GI & Abdominal Exam: Distended, Soft. absent: Rigid - Extremities Exam Extremities Exam: Pedal Edema Additional comments: BL 1+ UE edema - Neurological Exam Additional comments: Currently sedated, GCS E2, VT, M4 - Psychiatric Exam Additional comments: sedated, unresponsive Assessment and Plan - Assessment and Plan (Free Text) Assessment: 47M with respiratory failure with continued dependence on mechanical ventilation. Dysphagia d/t poor mental status Plan: -Trach, PEG, permacath planned for Sunday (08/19/17) -Continue current management per ICU -AM CBC, CMP Further Recs as per Dr. Samy Torrez, PGY1
--- NOTE | 2017-09-17 13:13 | CP.PCM.PN ---
Subjective - Date & Time of Evaluation Date of Evaluation: 09/17/17 Time of Evaluation: 13:10 - Subjective Subjective: Mr. Aguero was seen and examined at the bedside in ICU. He remains on mechanical ventilator on PRVC mode. He is on propofol at 30 mcg/kg/min for sedation, GCS- 4T. He remains with gag reflex, pupils are sluggish to react to light accommodation. He has bilateral wrist restraints for patient safety and SCD for DVT prophylaxis. There was no untoward events overnight. Objective - Vital Signs/Intake and Output Vital Signs (last 24 hours): Temp Pulse Resp BP Pulse Ox 100.6 F H 99 H 26 H 141/90 98 09/17/17 11:45 09/17/17 11:45 09/16/17 11:45 09/17/17 11:45 09/17/17 11:45 Intake and Output: 09/17/17 09/17/17 06:59 18:59 Intake Total 773 100 Output Total 900 Balance -127 100 - Medications Medications: Current Medications Artificial Tears (Refresh Opth Soln) 0.3 ml OU Q12 PRN PRN Reason: Dry eyes Last Admin: 09/17/17 11:07 Dose: 0.3 ml Budesonide (Pulmicort Respules) 0.5 mg IH [id number] [facility] Last Admin: 09/17/17 07:57 Dose: 0.5 mg Clonidine HCl (Catapres Tts1 0.1 Mg/24 Hr) 1 patch TD Q7D@1000 [facility] Last Admin: 09/15/17 14:50 Dose: 1 patch Famotidine (Pepcid) 20 mg IVP BID [facility] Last Admin: 09/17/17 11:00 Dose: 20 mg Folic Acid (Folic Acid) 1 mg NG DAILY [facility] Last Admin: 09/17/17 11:06 Dose: 1 mg Hydralazine HCl (Apresoline) 10 mg IVP Q6 PRN PRN Reason: BP> 180 Last Admin: 09/15/17 22:36 Dose: 10 mg Levetiracetam 1,000 mg/ Sodium (Chloride) 110 mls @ 460 mls/hr IV Q12 [facility] Last Admin: 09/17/17 11:03 Dose: 460 mls/hr Propofol (Diprivan) 1,000 mg in 100 mls @ 2.062 mls/hr IV .Q24H PRN; Protocol; 5 MCG/KG/MIN PRN Reason: TITRATE PER MD ORDER Last Admin: 09/17/17 10:49 Dose: 40 mcg/kg/min, 16.493 mls/hr Metronidazole (Flagyl) 500 mg in 100 mls @ 100 mls/hr IVPB Q8 [facility] PRN Reason: Protocol Last Admin: 09/17/17 05:15 Dose: 100 mls/hr Meropenem 500 mg/ Sodium (Chloride) 100 mls @ 100 mls/hr IVPB Q12 [facility] PRN Reason: Protocol Stop: 09/24/17 10:16 Last Admin: 09/17/17 11:01 Dose: 100 mls/hr Insulin Detemir (Levemir) 5 unit SC HS [facility] Insulin Human Lispro (Humalog High) 0 units SC ACHS [facility] PRN Reason: Protocol Last Admin: 09/16/17 23:12 Dose: Not Given Levalbuterol HCl (Xopenex) 0.63 mg IH [id number] [facility] Last Admin: 09/17/17 13:07 Dose: 0.63 mg Lorazepam (Ativan) 2 mg IVP Q3H PRN; Protocol PRN Reason: Agitation Last Admin: 09/14/17 10:15 Dose: 2 mg Multivitamins/Vitamin C (Multi-Delyn Liquid) 15 ml PO 0800 [facility] Last Admin: 09/17/17 11:00 Dose: 15 ml Pantoprazole Sodium (Protonix Inj) 40 mg IVP Q12 [facility] Thiamine HCl (Vitamin B1 Inj) 100 mg IV DAILY [facility] Last Admin: 09/17/17 10:59 Dose: 100 mg Tobramycin/Dexamethasone (Tobradex Opht Susp) 0 ml OU QID [facility] Last Admin: 09/17/17 10:00 Dose: 1 drop Vancomycin HCl (Vancocin 25 Mg/Ml (Oral Use)) 500 mg PO Q6 [facility] PRN Reason: Protocol Last Admin: 09/17/17 11:02 Dose: 500 mg Vitamin A (Vitamin A & D Oint Ud Foilpak) 1 ea TOP Q8 PRN PRN Reason: Dry skin - Labs Labs: 09/17/17 05:45 09/17/17 05:45 PT 14.2 SECONDS (9.4-12.5) H 09/17/17 05:45 INR 1.23 (0.93-1.08) H 09/17/17 05:45 APTT 32.4 Seconds (25.1-36.5) 09/17/17 05:45 - Constitutional Appears: No Acute Distress - Head Exam Head Exam: NORMAL INSPECTION - Neurological Exam Neurological Exam: Awake Neuro motor strength exam: Left Upper Extremity: 2/1, Right Upper Extremity: 2/1 , Left Lower Extremity: 2/1, Right Lower Extremity: 2/1 Additional comments: GCS- 4T Assessment and Plan (1) Seizure Assessment & Plan: Case discussed with Dr. Remy, continue all current medical regimen. Recommend repeat EEG. Status: Acute
[2017-09-17] MEDS: Insulin Detemir 100 units/ml Vial (Levemir) SC SCH (21:08)
[2017-09-17] MEDS ORDERED: Insulin Detemir 100 units/ml Vial (Levemir) SC SCH (22:00)
[2017-09-18] MEDS: Vancomycin 25 MG/ML PO SCH ×5 (00:02→23:26)
[2017-09-18] MEDS: Propofol 10 mg/ml 1,000 MG/100 ML VIAL IV PRN ×4 (01:27→22:13)
[2017-09-18 01:28] LABS: CALCIUM 8.9 mg/dL (8.4-10.5)
[2017-09-18] MEDS: Insulin Lispro (HUMAlog) HIGH Coverage SC SCH ×4 (01:29→19:43)
[2017-09-18] MEDS: Potassium Chloride 40 mEq/30 ml LIQ UD NG SCH ×2 (02:00→05:06)
[2017-09-18] MEDS: metroNIDAZOLE IV 500 mg/100 ml 500 MG/100 ML BAG IVPB SCH ×3 (05:01→22:13)
[2017-09-18 05:40] LABS: ARTERIAL BLOOD GAS HCO3 22.2 mmol/L (21-28); ARTERIAL BLOOD GAS HEMOGLOBIN 8.8 g/dL (11.7-17.4); ARTERIAL BLOOD GAS O2 CAPACITY 12.4 mL/dl (16-24); ARTERIAL BLOOD GAS O2 CONTENT 12.4 ML/dl (15-23); ARTERIAL BLOOD GAS O2 SAT 99.9 % (95-98); ARTERIAL BLOOD GAS PCO2 32 mm/Hg (35-45); ARTERIAL BLOOD GAS PH 7.45 (7.35-7.45); ARTERIAL BLOOD GAS TCO2 23.2 mmol.L (22-28)
[2017-09-18 06:59] LABS: BASO # 0.33 K/mm3 (0.0-2.0); BASO % 1.8 % (0.0-3.0); EOS % 0.2 % (1.5-5.0); GRAN # 12.16 (1.4-6.5); GRAN % 67.3 % (50.0-68.0); HEMOGLOBIN 10.2 g/dL (14.0-18.0); LYMPH # 3.6 (1.2-3.4); LYMPH % 19.7 % (22.0-35.0); MEAN CELL VOLUME 94.4 fl (80.0-105.0); MEAN CORPUSCULAR HEMOGLOBIN 30.1 pg (25.0-35.0); MEAN CORPUSCULAR HGB CONC 31.9 g/dl (31.0-37.0); MEAN PLATELET VOLUME 12.1 fl (7.0-11.0); RBC 3.39 10^6/uL (3.5-6.1); RED CELL DISTRIBUTION WIDTH 17.7 % (11.5-14.5); WHITE BLOOD COUNT 18.1 10^3/ul (4.5-11.0)
[2017-09-18] MEDS: Levalbuterol 0.63 MG/3 ML Inhal Soln UD IH SCH ×3 (08:00→19:59)
[2017-09-18] MEDS: Budesonide 0.5 mg/2 ml Inhal Susp UD IH SCH ×2 (08:00→19:58)
[2017-09-18 08:01] LABS: ALB/GLOB RATIO 0.8 (1.1-1.8); ALBUMIN 2.7 g/dL (3.0-4.8); CALCIUM 8.9 mg/dL (8.4-10.5); MAGNESIUM 1.7 mg/dL (1.7-2.2)
--- NOTE | 2017-09-18 08:16 | CP.PCM.PN ---
Subjective - Date & Time of Evaluation Date of Evaluation: 09/18/17 Time of Evaluation: 08:22 - Subjective Subjective: GENERAL SURGERY CONSULT PROGRESS NOTE FOR DR. OROZCO. Patient has been seen and examined at bedside. Is currently febrile. ROS unattainable because patient is non-verbal. Intubated on mechanical vent (35%, 5 , 18, 450). Objective - Vital Signs/Intake and Output Vital Signs (last 24 hours): Temp Pulse Resp BP Pulse Ox 98.2 F 78 23 174/102 H 100 09/18/17 04:00 09/18/17 06:00 09/18/17 02:11 09/18/17 05:04 09/18/17 04:00 Intake and Output: 09/18/17 09/18/17 06:59 18:59 Intake Total 200 Balance 200 - Medications Medications: Current Medications Artificial Tears (Refresh Opth Soln) 0.3 ml OU Q12 PRN PRN Reason: Dry eyes Last Admin: 09/17/17 21:43 Dose: 0.3 ml Budesonide (Pulmicort Respules) 0.5 mg IH [id number] [facility] Last Admin: 09/18/17 08:00 Dose: 0.5 mg Clonidine HCl (Catapres Tts1 0.1 Mg/24 Hr) 1 patch TD Q7D@1000 [facility] Last Admin: 09/15/17 14:50 Dose: 1 patch Folic Acid (Folic Acid) 1 mg NG DAILY [facility] Last Admin: 09/17/17 11:06 Dose: 1 mg Hydralazine HCl (Apresoline) 10 mg IVP Q6 PRN PRN Reason: BP> 180 Last Admin: 09/18/17 05:04 Dose: 10 mg Levetiracetam 1,000 mg/ Sodium (Chloride) 110 mls @ 460 mls/hr IV Q12 [facility] Last Admin: 09/17/17 21:39 Dose: 460 mls/hr Propofol (Diprivan) 1,000 mg in 100 mls @ 2.062 mls/hr IV .Q24H PRN; Protocol; 5 MCG/KG/MIN PRN Reason: TITRATE PER MD ORDER Last Admin: 09/18/17 06:08 Dose: 40 mcg/kg/min, 16.493 mls/hr Metronidazole (Flagyl) 500 mg in 100 mls @ 100 mls/hr IVPB Q8 [facility] PRN Reason: Protocol Last Admin: 09/18/17 05:01 Dose: 100 mls/hr Meropenem 500 mg/ Sodium (Chloride) 100 mls @ 100 mls/hr IVPB Q12 [facility] PRN Reason: Protocol Stop: 09/24/17 10:16 Last Admin: 09/17/17 11:01 Dose: 100 mls/hr Insulin Detemir (Levemir) 15 unit SC HS [facility] Last Admin: 09/17/17 21:08 Dose: 15 unit Insulin Human Lispro (Humalog High) 0 units SC Q6H [facility] PRN Reason: Protocol Last Admin: 09/18/17 05:57 Dose: 10 units Levalbuterol HCl (Xopenex) 0.63 mg IH [id number] [facility] Last Admin: 09/18/17 08:00 Dose: 0.63 mg Lorazepam (Ativan) 2 mg IVP Q3H PRN; Protocol PRN Reason: Agitation Last Admin: 09/14/17 10:15 Dose: 2 mg Multivitamins/Vitamin C (Multi-Delyn Liquid) 15 ml PO 0800 [facility] Last Admin: 09/17/17 11:00 Dose: 15 ml Pantoprazole Sodium (Protonix Inj) 40 mg IVP Q12 [facility] Last Admin: 09/17/17 21:08 Dose: 40 mg Thiamine HCl (Vitamin B1 Inj) 100 mg IV DAILY [facility] Last Admin: 09/17/17 10:59 Dose: 100 mg Tobramycin/Dexamethasone (Tobradex Opht Susp) 0 ml OU QID [facility] Last Admin: 09/17/17 21:46 Dose: 1 drop Vancomycin HCl (Vancocin 25 Mg/Ml (Oral Use)) 500 mg PO Q6 [facility] PRN Reason: Protocol Last Admin: 09/18/17 05:58 Dose: 500 mg Vitamin A (Vitamin A & D Oint Ud Foilpak) 1 ea TOP Q8 PRN PRN Reason: Dry skin Last Admin: 09/17/17 18:41 Dose: 1 ea - Labs Labs: 09/18/17 05:30 09/18/17 05:30 PT 14.2 SECONDS (9.4-12.5) H 09/17/17 05:45 INR 1.23 (0.93-1.08) H 09/17/17 05:45 APTT 32.4 Seconds (25.1-36.5) 09/17/17 05:45 - Additional Findings Additional findings: - Constitutional Appears: No Acute Distress, Older Than Stated Age - Head Exam Head Exam: ATRAUMATIC, NORMOCEPHALIC - ENT Exam Additional comments: ETT and OGT in place - Neck Exam Neck Exam: Normal Inspection - Respiratory Exam Respiratory Exam: Rhonchi. absent: Accessory Muscle Use, Wheezes Additional comments: mechanically ventilated - Cardiovascular Exam Cardiovascular Exam: Tachycardia, REGULAR RHYTHM - GI/Abdominal Exam GI & Abdominal Exam: Distended, Soft. absent: Rigid - Extremities Exam Extremities Exam: Pedal Edema Additional comments: BL 1+ UE edema - Neurological Exam Additional comments: Currently sedated, GCS E2, VT, M4 - Psychiatric Exam Additional comments: sedated Assessment and Plan - Assessment and Plan (Free Text) Assessment: 47M with respiratory failure with continued dependence on mechanical ventilation. Dysphagia d/t poor mental status Plan: -Trach, PEG, permacath planned for Sunday (08/19/17) -F/U with GI regarding PEG -NPO after midnight. -Continue current medical management per ICU -AM CBC, CMP Further Recs as per Dr. Samy Torrez, PGY1
--- NOTE | 2017-09-18 08:45 | RAD ---
HISTORY: intubated on vent COMPARISON: No prior. FINDINGS: LUNGS: Scattered patchy opacities common nonspecific. No focal consolidation. PLEURA: Mild elevation of right hemidiaphragm. No pneumothorax or pleural effusion appreciated. CARDIOVASCULAR: Endotracheal tube and nasogastric tube unchanged. OSSEOUS STRUCTURES: No significant abnormalities. VISUALIZED UPPER ABDOMEN: Normal. OTHER FINDINGS: None. IMPRESSION: Scattered patchy opacities common nonspecific.
--- NOTE | 2017-09-18 10:08 | CP.PCM.PN ---
Subjective - Date & Time of Evaluation Date of Evaluation: 09/18/17 Time of Evaluation: 09:30 - Subjective Subjective: Continued to have fever overnight, still on the ventilator, stools are still loose but not as watery compared to previous days. Objective - Vital Signs/Intake and Output Vital Signs (last 24 hours): Temp Pulse Resp BP Pulse Ox 98.2 F 78 23 174/102 H 100 09/18/17 04:00 09/18/17 06:00 09/18/17 02:11 09/18/17 05:04 09/18/17 04:00 Intake and Output: 09/17/17 09/18/17 18:59 06:59 Intake Total 2250 200 Output Total 3050 Balance -800 200 - Medications Medications: Current Medications Artificial Tears (Refresh Opth Soln) 0.3 ml OU Q12 PRN PRN Reason: Dry eyes Last Admin: 09/17/17 21:43 Dose: 0.3 ml Budesonide (Pulmicort Respules) 0.5 mg IH [id number] [facility] Last Admin: 09/17/17 20:26 Dose: 0.5 mg Clonidine HCl (Catapres Tts1 0.1 Mg/24 Hr) 1 patch TD Q7D@1000 [facility] Last Admin: 09/15/17 14:50 Dose: 1 patch Folic Acid (Folic Acid) 1 mg NG DAILY [facility] Last Admin: 09/17/17 11:06 Dose: 1 mg Hydralazine HCl (Apresoline) 10 mg IVP Q6 PRN PRN Reason: BP> 180 Last Admin: 09/18/17 05:04 Dose: 10 mg Levetiracetam 1,000 mg/ Sodium (Chloride) 110 mls @ 460 mls/hr IV Q12 [facility] Last Admin: 09/17/17 21:39 Dose: 460 mls/hr Propofol (Diprivan) 1,000 mg in 100 mls @ 2.062 mls/hr IV .Q24H PRN; Protocol; 5 MCG/KG/MIN PRN Reason: TITRATE PER MD ORDER Last Admin: 09/18/17 06:08 Dose: 40 mcg/kg/min, 16.493 mls/hr Metronidazole (Flagyl) 500 mg in 100 mls @ 100 mls/hr IVPB Q8 [facility] PRN Reason: Protocol Last Admin: 09/18/17 05:01 Dose: 100 mls/hr Meropenem 500 mg/ Sodium (Chloride) 100 mls @ 100 mls/hr IVPB Q12 [facility] PRN Reason: Protocol Stop: 09/24/17 10:16 Last Admin: 09/17/17 11:01 Dose: 100 mls/hr Insulin Detemir (Levemir) 15 unit SC HS [facility] Last Admin: 09/17/17 21:08 Dose: 15 unit Insulin Human Lispro (Humalog High) 0 units SC Q6H [facility] PRN Reason: Protocol Last Admin: 09/18/17 05:57 Dose: 10 units Levalbuterol HCl (Xopenex) 0.63 mg IH [id number] [facility] Last Admin: 09/17/17 20:27 Dose: 0.63 mg Lorazepam (Ativan) 2 mg IVP Q3H PRN; Protocol PRN Reason: Agitation Last Admin: 09/14/17 10:15 Dose: 2 mg Multivitamins/Vitamin C (Multi-Delyn Liquid) 15 ml PO 0800 [facility] Last Admin: 09/17/17 11:00 Dose: 15 ml Pantoprazole Sodium (Protonix Inj) 40 mg IVP Q12 [facility] Last Admin: 09/17/17 21:08 Dose: 40 mg Thiamine HCl (Vitamin B1 Inj) 100 mg IV DAILY [facility] Last Admin: 09/17/17 10:59 Dose: 100 mg Tobramycin/Dexamethasone (Tobradex Opht Susp) 0 ml OU QID [facility] Last Admin: 09/17/17 21:46 Dose: 1 drop Vancomycin HCl (Vancocin 25 Mg/Ml (Oral Use)) 500 mg PO Q6 [facility] PRN Reason: Protocol Last Admin: 09/18/17 05:58 Dose: 500 mg Vitamin A (Vitamin A & D Oint Ud Foilpak) 1 ea TOP Q8 PRN PRN Reason: Dry skin Last Admin: 09/17/17 18:41 Dose: 1 ea - Labs Labs: 09/17/17 05:45 09/18/17 00:30 PT 14.2 SECONDS (9.4-12.5) H 09/17/17 05:45 INR 1.23 (0.93-1.08) H 09/17/17 05:45 APTT 32.4 Seconds (25.1-36.5) 09/17/17 05:45 - Constitutional Appears: Chronically Ill, Other (intubated and sedated) - Head Exam Head Exam: NORMAL INSPECTION - ENT Exam Additional comments: ET tube in place - Neck Exam Additional comments: right IJ TLC in place - Respiratory Exam Respiratory Exam: Decreased Breath Sounds - Cardiovascular Exam Cardiovascular Exam: +S1, +S2 - GI/Abdominal Exam GI & Abdominal Exam: Soft. absent: Tenderness Assessment and Plan - Assessment and Plan (Free Text) Plan: Assessment new onset Systemic Inflammatory Reponse Syndrome on top of VDRF with severe sepsis with renal failure due to C. diff. associated diarrhea on top of acute alcoholic pancreatitis, R/O new onset sepsis with increasing leukocytosis Thrombocytopenia with alcoholic liver disease DM HTN Plan continue PO Vancomycin day 9 for 10-14 days and IV Flagyl since the patient continues to have diarrhea (slowly improving) follow up repeat blood, sputum, urine cx, PCT, CXR done yesterday - given a dose of IV Vanco and continue Merrem (day 2) overall prognosis is poor
[2017-09-18] MEDS: Meropenem 500 MG in Sodium Chloride 0.9% 100 ML IVPB SCH ×2 (10:42→22:15)
[2017-09-18] MEDS: levETIRAcetam 1,000 MG in Sodium Chloride 0.9% 100 ML IV SCH ×2 (10:43→22:14)
[2017-09-18] MEDS: Multi Vitamins 15 mL UD Oral Solution PO SCH (10:43)
[2017-09-18] MEDS: Thiamine 100 mg/ml Inj IV SCH (10:43)
[2017-09-18] MEDS: Tobramycin/Dexamethasone (Tobradex) Opth Sol (2.5 ml) OU SCH ×4 (10:45→23:00)
--- NOTE | 2017-09-18 11:08 | CP.PCM.PN ---
Subjective - Date & Time of Evaluation Date of Evaluation: 09/18/17 Time of Evaluation: 07:30 - Subjective Subjective: Pt seen and examined, remains intubated, lethargic. Objective - Vital Signs/Intake and Output Vital Signs (last 24 hours): Temp Pulse Resp BP Pulse Ox 98.2 F 78 25 H 174/102 H 97 09/18/17 04:00 09/18/17 06:00 09/18/17 08:02 09/18/17 05:04 09/18/17 08:02 Intake and Output: 09/18/17 09/18/17 06:59 18:59 Intake Total 200 Balance 200 - Medications Medications: Current Medications Artificial Tears (Refresh Opth Soln) 0.3 ml OU Q12 PRN PRN Reason: Dry eyes Last Admin: 09/17/17 21:43 Dose: 0.3 ml Budesonide (Pulmicort Respules) 0.5 mg IH [id number] [facility] Last Admin: 09/18/17 08:00 Dose: 0.5 mg Clonidine HCl (Catapres Tts1 0.1 Mg/24 Hr) 1 patch TD Q7D@1000 [facility] Last Admin: 09/15/17 14:50 Dose: 1 patch Folic Acid (Folic Acid) 1 mg NG DAILY [facility] Last Admin: 09/18/17 10:43 Dose: 1 mg Hydralazine HCl (Apresoline) 10 mg IVP Q6 PRN PRN Reason: BP> 180 Last Admin: 09/18/17 05:04 Dose: 10 mg Levetiracetam 1,000 mg/ Sodium (Chloride) 110 mls @ 460 mls/hr IV Q12 [facility] Last Admin: 09/18/17 10:43 Dose: 460 mls/hr Propofol (Diprivan) 1,000 mg in 100 mls @ 2.062 mls/hr IV .Q24H PRN; Protocol; 5 MCG/KG/MIN PRN Reason: TITRATE PER MD ORDER Last Admin: 09/18/17 06:08 Dose: 40 mcg/kg/min, 16.493 mls/hr Metronidazole (Flagyl) 500 mg in 100 mls @ 100 mls/hr IVPB Q8 [facility] PRN Reason: Protocol Last Admin: 09/18/17 05:01 Dose: 100 mls/hr Meropenem 500 mg/ Sodium (Chloride) 100 mls @ 100 mls/hr IVPB Q12 [facility] PRN Reason: Protocol Stop: 09/24/17 10:16 Last Admin: 09/18/17 10:42 Dose: 100 mls/hr Insulin Detemir (Levemir) 15 unit SC HS [facility] Last Admin: 09/17/17 21:08 Dose: 15 unit Insulin Human Lispro (Humalog High) 0 units SC Q6H [facility] PRN Reason: Protocol Last Admin: 09/18/17 05:57 Dose: 10 units Levalbuterol HCl (Xopenex) 0.63 mg IH [id number] [facility] Last Admin: 09/18/17 08:00 Dose: 0.63 mg Lorazepam (Ativan) 2 mg IVP Q3H PRN; Protocol PRN Reason: Agitation Last Admin: 09/14/17 10:15 Dose: 2 mg Multivitamins/Vitamin C (Multi-Delyn Liquid) 15 ml PO 0800 [facility] Last Admin: 09/18/17 10:43 Dose: 15 ml Pantoprazole Sodium (Protonix Inj) 40 mg IVP Q12 [facility] Last Admin: 09/18/17 10:43 Dose: 40 mg Thiamine HCl (Vitamin B1 Inj) 100 mg IV DAILY [facility] Last Admin: 09/18/17 10:43 Dose: 100 mg Tobramycin/Dexamethasone (Tobradex Opht Susp) 0 ml OU QID [facility] Last Admin: 09/18/17 10:45 Dose: 1 drop Vancomycin HCl (Vancocin 25 Mg/Ml (Oral Use)) 500 mg PO Q6 [facility] PRN Reason: Protocol Last Admin: 09/18/17 05:58 Dose: 500 mg Vitamin A (Vitamin A & D Oint Ud Foilpak) 1 ea TOP Q8 PRN PRN Reason: Dry skin Last Admin: 09/17/17 18:41 Dose: 1 ea - Labs Labs: 09/18/17 05:30 09/18/17 05:30 PT 14.2 SECONDS (9.4-12.5) H 09/17/17 05:45 INR 1.23 (0.93-1.08) H 09/17/17 05:45 APTT 32.4 Seconds (25.1-36.5) 09/17/17 05:45 - Constitutional Appears: Non-toxic, No Acute Distress - Eye Exam Eye Exam: Normal appearance - ENT Exam ENT Exam: Mucous Membranes Moist - Respiratory Exam Respiratory Exam: Clear to Ausculation Bilateral, NORMAL BREATHING PATTERN - Cardiovascular Exam Cardiovascular Exam: REGULAR RHYTHM, +S1, +S2 - GI/Abdominal Exam GI & Abdominal Exam: Distended, Soft, Normal Bowel Sounds - Extremities Exam Extremities Exam: Normal Inspection - Neurological Exam Neurological Exam: Altered Assessment and Plan - Assessment and Plan (Free Text) Assessment: Patient is 47yo male PMHx of DM2, HTN and alcohol abuse admitted with septic shock , pancreatitis, aspiration pneumonia, IRWIN, transaminitis, seizures, metabolic acidosis, thrombocytopenia likely secondary to alcohol abuse, s/p cardiac arrest s/p ROSC and respiratory failure/ARDS which has resolved. Currently afebrile, HD stable, comfortable, in NAD. On exam, lethargic but responds and opens eyes to painful stimuli. Off pressors, FiO2 requirements are minimal, ARDS has resolved Awaiting trach/PEG, Ltach. ARDS, resolved IRWIN s/p HD PNA Pancreatitis Seizure Disorder EtOH abuse s/p Cardiac Arrest s/p ROSC Recommend: - low tidal vol ventilation, goal plateau <30, ABG acceptable, CXR with improvement - cont with broad spectrum antibiotics as per ID, cover for Cdiff - BP control - Seizure Ppx - follow up neurology - follow up nephro - Trach/PEG tomorrow - FS control, Levemir, Insulin sliding scale, may require drip - Feeds - monitor UOP - GI ppx - DVT ppx Patient at high risk for morbidity and mortality Critical care time 35 minutes
--- NOTE | 2017-09-18 11:43 | CP.PCM.PN ---
<Jay Harden - Last Filed: 09/18/17 13:20> Subjective - Date & Time of Evaluation Date of Evaluation: 09/18/17 Time of Evaluation: 11:00 - Subjective Subjective: Jay Harden PGY1 IM Progress Note Patient was seen and examined at bedside in ICU. Patient remains intubated and is responsive to pain but is sedated well on Propofol. Patient is off pressors and has not been requiring them. There is loose brown stools in rectal tube bag and lazo in. Patient remains in isolation due to c. diff infection. ROS unobtainable. Objective - Vital Signs/Intake and Output Vital Signs (last 24 hours): Temp Pulse Resp BP Pulse Ox 98.2 F 94 H 25 H 172/102 H 97 09/18/17 04:00 09/18/17 11:16 09/18/17 08:02 09/18/17 11:16 09/18/17 08:02 Intake and Output: 09/18/17 09/18/17 06:59 18:59 Intake Total 200 Balance 200 - Medications Medications: Current Medications Artificial Tears (Refresh Opth Soln) 0.3 ml OU Q12 PRN PRN Reason: Dry eyes Last Admin: 09/17/17 21:43 Dose: 0.3 ml Budesonide (Pulmicort Respules) 0.5 mg IH [id number] [facility] Last Admin: 09/18/17 08:00 Dose: 0.5 mg Clonidine HCl (Catapres Tts1 0.1 Mg/24 Hr) 1 patch TD Q7D@1000 [facility] Last Admin: 09/15/17 14:50 Dose: 1 patch Folic Acid (Folic Acid) 1 mg NG DAILY [facility] Last Admin: 09/18/17 10:43 Dose: 1 mg Hydralazine HCl (Apresoline) 10 mg IVP Q6 PRN PRN Reason: BP> 180 Last Admin: 09/18/17 11:16 Dose: 10 mg Levetiracetam 1,000 mg/ Sodium (Chloride) 110 mls @ 460 mls/hr IV Q12 [facility] Last Admin: 09/18/17 10:43 Dose: 460 mls/hr Propofol (Diprivan) 1,000 mg in 100 mls @ 2.062 mls/hr IV .Q24H PRN; Protocol; 5 MCG/KG/MIN PRN Reason: TITRATE PER MD ORDER Last Admin: 09/18/17 06:08 Dose: 40 mcg/kg/min, 16.493 mls/hr Metronidazole (Flagyl) 500 mg in 100 mls @ 100 mls/hr IVPB Q8 [facility] PRN Reason: Protocol Last Admin: 09/18/17 05:01 Dose: 100 mls/hr Meropenem 500 mg/ Sodium (Chloride) 100 mls @ 100 mls/hr IVPB Q12 [facility] PRN Reason: Protocol Stop: 09/24/17 10:16 Last Admin: 09/18/17 10:42 Dose: 100 mls/hr Insulin Detemir (Levemir) 15 unit SC HS [facility] Last Admin: 09/17/17 21:08 Dose: 15 unit Insulin Human Lispro (Humalog High) 0 units SC Q6H [facility] PRN Reason: Protocol Last Admin: 09/18/17 05:57 Dose: 10 units Levalbuterol HCl (Xopenex) 0.63 mg IH [id number] [facility] Last Admin: 09/18/17 08:00 Dose: 0.63 mg Lorazepam (Ativan) 2 mg IVP Q3H PRN; Protocol PRN Reason: Agitation Last Admin: 09/14/17 10:15 Dose: 2 mg Multivitamins/Vitamin C (Multi-Delyn Liquid) 15 ml PO 0800 [facility] Last Admin: 09/18/17 10:43 Dose: 15 ml Pantoprazole Sodium (Protonix Inj) 40 mg IVP Q12 [facility] Last Admin: 09/18/17 10:43 Dose: 40 mg Thiamine HCl (Vitamin B1 Inj) 100 mg IV DAILY [facility] Last Admin: 09/18/17 10:43 Dose: 100 mg Tobramycin/Dexamethasone (Tobradex Opht Susp) 0 ml OU QID [facility] Last Admin: 09/18/17 10:45 Dose: 1 drop Vancomycin HCl (Vancocin 25 Mg/Ml (Oral Use)) 500 mg PO Q6 [facility] PRN Reason: Protocol Last Admin: 09/18/17 11:17 Dose: 500 mg Vitamin A (Vitamin A & D Oint Ud Foilpak) 1 ea TOP Q8 PRN PRN Reason: Dry skin Last Admin: 09/17/17 18:41 Dose: 1 ea - Labs Labs: 09/18/17 05:30 09/18/17 05:30 PT 14.2 SECONDS (9.4-12.5) H 09/17/17 05:45 INR 1.23 (0.93-1.08) H 09/17/17 05:45 APTT 32.4 Seconds (25.1-36.5) 09/17/17 05:45 - Additional Findings Additional findings: - Constitutional Appears: No Acute Distress - Head Exam Head Exam: NORMAL INSPECTION - Eye Exam Eye Exam: PERRL, Scleral icterus - ENT Exam Additional comments: intubated w/ ETT OGT secured to ETT in place - Neck Exam Additional comments: R IJ TLC in place - Respiratory Exam Respiratory Exam: Rales (b/l bases), Rhonchi (b/l bases R>L). absent: Decreased Breath Sounds Additional comments: intubated - Cardiovascular Exam Cardiovascular Exam: Tachycardia, +S1, +S2 - GI/Abdominal Exam GI & Abdominal Exam: Distended, Soft, Normal Bowel Sounds. absent: Guarding - Rectal Exam Additional comments: rectal tube draining brown loose stools, decreased in quantity than prior exams - Exam Additional comments: penile swelling (circumferential) lazo catheter in place - Extremities Exam Extremities Exam: absent: Pedal Edema Additional comments: UE swelling 1+ pedal edema 2+ L hand 3 ruptured bullous - Back Exam Back Exam: NORMAL INSPECTION - Neurological Exam Neurological Exam: Altered. absent: Awake Additional comments: remains sedated - Psychiatric Exam Additional comments: was not obtained due to sedation - Skin Skin Exam: Normal Color, Warm Assessment and Plan - Assessment and Plan (Free Text) Assessment: 47yo M with a PMH of DM2, HTN and alcohol use who presented with URI symptoms such as cough, shortness of breath, palpitations. Last alcoholic drink was night prior to admission. Patient was admitted for septic shock (with lactate of 7.7 on presentation), high anion gap metabolic acidosis, acute pancreatitis 2 /2 ETOH vs triglycerides, IRWIN vs CKD, elevated LFTs likely 2/2 ETOH, elevated BNP, hyponatremia, and hypokalemia. s/p cardiac arrest and ROSC. Upon ROSC, patient vomited and likely aspirated, but was turned to the side and suctioned. Intubated and on vent with sedation in ICU. Patient initially required pressors to maintain BP but is no longer needing them. Remains on Keppra for seizure ppx. IRWIN did not improve, so patient required temporary dialysis (4 sessions so far). Surgery consulted for trach/peg and permacath placement. Plan: 1. Septic shock likely 2/2 pancreatitis, resolved - febrile overnight - initial blood, urine, trachea cultures showed no growth - pending pancultures drawn on 09/17 - trach-aspirate growing Gram neg shalom, previously was not - cont Flagyl and PO Vanc for +cdiff in stool culture - cont Merrem for new fevers - continue ICU monitoring due to unstable vitals and altered mental state - cont tube feeds - CT Findings on admission were concerning for acute pancreatitis w/o ductal dilatation, calcifications or pseudocyst, and alcoholic liver steatosis - BP maintained off pressors currently, cont to monitor - cont contact precautions - tylenol supp PRN - Monitor vitals - Maintain MAP > 65 - ID consulted for management of septic shock, recs appreciated - GI consulted for alcoholic pancreatitis and +stool occult blood, recs appreciated - Surgery consulted for abdominal distention and for trach/peg placement, recs appreciated - Palliative care consulted for advanced directives, patient will be transferred to extermination supervisor acute center 2. AMS 2/2 Anion gap metabolic acidosis likely 2/2 lactic acidosis and ETOH - s/p cardiac arrest 09/08 - plan for trach/peg and permacath tomorrow per Surgery - patient was intubated to protect airway due to hypoxemia and vomiting to reduce risk of aspiration; daily vent weaning trials - CT Head showed no acute intracranial abnormalities and mild chronic microangiopathic changes, w/ moderate global parencyhmal volume loss - ativan prn agitation - Maintain SaO2 > 90% - EEG was normal - cont Keppra for seizure ppx - Neurology consulted, recs appreciated - Cardiology consulted, recs appreciated 3. IRWIN vs CKD a/w Hypophosphatemia - s/p 4 dialysis sessions - IR was consulted for placement of Permacath for intermediate dialysis, however, surgery will be placing it tomorrow - FENa 3.2 indicating ATN - given septic shock, likely component of pre-renal and intrinsic ischemic ATN ( coarse granular casts seen on UA) - avoid nephrotoxins - Nephrology consulted, recs appreciated 4. HTN - clonidine patch q7d - hydralazine prn - monitor VS 5. Hypergylcemia - Levemir increased to 15u HS - ISS - could be a mix of reactive hyperglycemia and baseline uncontrolled DM2 - TSH and A1C WNL 6. 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 Transaminitis likely w/ underlying liver disease, improving - likely 2/2 shock liver and chronic ETOH use since INR is elevated - cont thiamine, MV and folic acid - hepatitis panel negative - HIV pending - continue to monitor 8. Poor prognosis - discuss with family/ poor prognosis and long-term plane - Palliative care consulted - patient for LTAC following tach/peg and permacath placement Patient was seen, examined and discussed with attending, Dr. Jeannette Harden PGY1 Pager # [phone] <Tatum Machado - Last Filed: 09/18/17 16:55> Objective - Vital Signs/Intake and Output Vital Signs (last 24 hours): Temp Pulse Resp BP Pulse Ox 98.1 F 101 H 26 H 109/66 97 09/18/17 14:02 09/18/17 14:02 09/18/17 14:00 09/18/17 14:00 09/18/17 14:02 Intake and Output: 09/18/17 09/18/17 06:59 18:59 Intake Total 200 Balance 200 - Medications Medications: Current Medications Artificial Tears (Refresh Opth Soln) 0.3 ml OU Q12 PRN PRN Reason: Dry eyes Last Admin: 09/17/17 21:43 Dose: 0.3 ml Budesonide (Pulmicort Respules) 0.5 mg IH [id number] [facility] Last Admin: 09/18/17 08:00 Dose: 0.5 mg Clonidine HCl (Catapres Tts1 0.1 Mg/24 Hr) 1 patch TD Q7D@1000 [facility] Last Admin: 09/15/17 14:50 Dose: 1 patch Folic Acid (Folic Acid) 1 mg NG DAILY [facility] Last Admin: 09/18/17 10:43 Dose: 1 mg Hydralazine HCl (Apresoline) 10 mg IVP Q6 PRN PRN Reason: BP> 180 Last Admin: 09/18/17 11:16 Dose: 10 mg Levetiracetam 1,000 mg/ Sodium (Chloride) 110 mls @ 460 mls/hr IV Q12 [facility] Last Admin: 09/18/17 10:43 Dose: 460 mls/hr Propofol (Diprivan) 1,000 mg in 100 mls @ 2.062 mls/hr IV .Q24H PRN; Protocol; 5 MCG/KG/MIN PRN Reason: TITRATE PER MD ORDER Last Admin: 09/18/17 06:08 Dose: 40 mcg/kg/min, 16.493 mls/hr Metronidazole (Flagyl) 500 mg in 100 mls @ 100 mls/hr IVPB Q8 [facility] PRN Reason: Protocol Last Admin: 09/18/17 14:55 Dose: 100 mls/hr Meropenem 500 mg/ Sodium (Chloride) 100 mls @ 100 mls/hr IVPB Q12 [facility] PRN Reason: Protocol Stop: 09/24/17 10:16 Last Admin: 09/18/17 10:42 Dose: 100 mls/hr Insulin Detemir (Levemir) 15 unit SC HS [facility] Last Admin: 09/17/17 21:08 Dose: 15 unit Insulin Human Lispro (Humalog High) 0 units SC Q6H [facility] PRN Reason: Protocol Last Admin: 09/18/17 14:45 Dose: 7 units Levalbuterol HCl (Xopenex) 0.63 mg IH [id number] [facility] Last Admin: 09/18/17 13:23 Dose: 0.63 mg Lorazepam (Ativan) 2 mg IVP Q3H PRN; Protocol PRN Reason: Agitation Last Admin: 09/14/17 10:15 Dose: 2 mg Multivitamins/Vitamin C (Multi-Delyn Liquid) 15 ml PO 0800 [facility] Last Admin: 09/18/17 10:43 Dose: 15 ml Pantoprazole Sodium (Protonix Inj) 40 mg IVP Q12 [facility] Last Admin: 09/18/17 10:43 Dose: 40 mg Thiamine HCl (Vitamin B1 Inj) 100 mg IV DAILY [facility] Last Admin: 09/18/17 10:43 Dose: 100 mg Tobramycin/Dexamethasone (Tobradex Opht Susp) 0 ml OU QID [facility] Last Admin: 09/18/17 10:45 Dose: 1 drop Vancomycin HCl (Vancocin 25 Mg/Ml (Oral Use)) 500 mg PO Q6 [facility] PRN Reason: Protocol Last Admin: 09/18/17 11:17 Dose: 500 mg Vitamin A (Vitamin A & D Oint Ud Foilpak) 1 ea TOP Q8 PRN PRN Reason: Dry skin Last Admin: 09/17/17 18:41 Dose: 1 ea - Labs Labs: 09/18/17 05:30 09/18/17 05:30 PT 14.2 SECONDS (9.4-12.5) H 09/17/17 05:45 INR 1.23 (0.93-1.08) H 09/17/17 05:45 APTT 32.4 Seconds (25.1-36.5) 09/17/17 05:45 Attending/Attestation - Attestation I have personally seen and examined this patient.: Yes I have fully participated in the care of the patient.: Yes I have reviewed all pertinent clinical information, including history, physical exam and plan: Yes Notes (Text): Attending note; Patient seen and examined with resident in ICU. Patient is a 47 year male with history of alcohol abuse, type 2 diabetes who came initially for abdominal pain and dyspnea. He was found to be severely acidotic and had elevated lactic acid level. He was diagnosed with alcoholic pancreatitis. Currently intubated. He is on sedation and off pressors. Still with Leukocytosis. on meropenem. ID evaluation appreciated. Blood and urine culture negative. C. difficile colitis: Continue PO vancomycin and Iv flagyl. acute kidney injury due to SIRS vs ATN/oliguric renal failure ;Currently getting hemodialysis. Case discussed with nephrology in detail. Has a right femoral dialysis catheter. needs permacath placement. surgery informed. Continue seizure precautions, keppra, thiamine, folate and MVI.Neurology evaluation appreciated. Repeat EEG ordered. Elevated LFT due to shock liver/alcohol abuse. IMproved. anemia and thrombocytopenia due to alcohol induced BM suppression vs sepsis; improved significantly. Case discussed with surgery Dr. Pablo in detail. Plan for trach and PEG placement tomorrow. Case discussed with social security specialist for LTAC placement. Overall prognosis is poor.
--- NOTE | 2017-09-18 14:20 | CP.PCM.PN ---
Subjective - Date & Time of Evaluation Date of Evaluation: 09/18/17 Time of Evaluation: 14:20 - Subjective Subjective: renal follow up note Please call us @ [phone] if any qs or concerns. thank you Assessment: critical Acute Kidney Injury (N17.9) likely due to pre-renal state, SIRS, Acute tubular necrosis Hyponatermia, hypokalemia DM, HTN, chronic alcoholism, hepatic dysfunction acute pancreatitis with hyperglycemia HAGMA with lactic acidosis + alcohol ketoacidosis and starvation ketoacidosis Thrombocytopenia Hypomagnesemia, hypophosphatemia s/p cardiac arrest, seizure ARDS Plan hold hd today consult IR for permacath placement lytes reviewed anemia stable monitor phos levels dm: per primary team d/w primary team S: seen and examined remains intubated Physical Examination: General Appearance: ill appearing. on vent Vitals reviewed and noted as below Head; Atraumatic, normocephalic ENT: intubated Neck; supple Lungs: Increased respiratory rate/effort. mechanical bs Heart: Increased rate. s1s2 normal. No rub or gallop. Extremities: 1+ edema. No varicose veins Neurological: Patient is sedated Skin: Warm and dry. Abdomen: Abdomen is soft. Bowel sounds decreased has rectal tube Psych: unable to assess MSK: no joint tenderness Objective - Vital Signs/Intake and Output Vital Signs (last 24 hours): Temp Pulse Resp BP Pulse Ox 98.1 F 101 H 26 H 109/66 97 09/18/17 14:02 09/18/17 14:02 09/18/17 14:00 09/18/17 14:00 09/18/17 14:02 Intake and Output: 09/18/17 09/18/17 06:59 18:59 Intake Total 200 Balance 200 - Medications Medications: Current Medications Artificial Tears (Refresh Opth Soln) 0.3 ml OU Q12 PRN PRN Reason: Dry eyes Last Admin: 09/17/17 21:43 Dose: 0.3 ml Budesonide (Pulmicort Respules) 0.5 mg IH [id number] [facility] Last Admin: 09/18/17 08:00 Dose: 0.5 mg Clonidine HCl (Catapres Tts1 0.1 Mg/24 Hr) 1 patch TD Q7D@1000 [facility] Last Admin: 09/15/17 14:50 Dose: 1 patch Folic Acid (Folic Acid) 1 mg NG DAILY [facility] Last Admin: 09/18/17 10:43 Dose: 1 mg Hydralazine HCl (Apresoline) 10 mg IVP Q6 PRN PRN Reason: BP> 180 Last Admin: 09/18/17 11:16 Dose: 10 mg Levetiracetam 1,000 mg/ Sodium (Chloride) 110 mls @ 460 mls/hr IV Q12 [facility] Last Admin: 09/18/17 10:43 Dose: 460 mls/hr Propofol (Diprivan) 1,000 mg in 100 mls @ 2.062 mls/hr IV .Q24H PRN; Protocol; 5 MCG/KG/MIN PRN Reason: TITRATE PER MD ORDER Last Admin: 09/18/17 06:08 Dose: 40 mcg/kg/min, 16.493 mls/hr Metronidazole (Flagyl) 500 mg in 100 mls @ 100 mls/hr IVPB Q8 [facility] PRN Reason: Protocol Last Admin: 09/18/17 05:01 Dose: 100 mls/hr Meropenem 500 mg/ Sodium (Chloride) 100 mls @ 100 mls/hr IVPB Q12 [facility] PRN Reason: Protocol Stop: 09/24/17 10:16 Last Admin: 09/18/17 10:42 Dose: 100 mls/hr Insulin Detemir (Levemir) 15 unit SC HS [facility] Last Admin: 09/17/17 21:08 Dose: 15 unit Insulin Human Lispro (Humalog High) 0 units SC Q6H [facility] PRN Reason: Protocol Last Admin: 09/18/17 05:57 Dose: 10 units Levalbuterol HCl (Xopenex) 0.63 mg IH [id number] [facility] Last Admin: 09/18/17 13:23 Dose: 0.63 mg Lorazepam (Ativan) 2 mg IVP Q3H PRN; Protocol PRN Reason: Agitation Last Admin: 09/14/17 10:15 Dose: 2 mg Multivitamins/Vitamin C (Multi-Delyn Liquid) 15 ml PO 0800 [facility] Last Admin: 09/18/17 10:43 Dose: 15 ml Pantoprazole Sodium (Protonix Inj) 40 mg IVP Q12 [facility] Last Admin: 09/18/17 10:43 Dose: 40 mg Thiamine HCl (Vitamin B1 Inj) 100 mg IV DAILY [facility] Last Admin: 09/18/17 10:43 Dose: 100 mg Tobramycin/Dexamethasone (Tobradex Opht Susp) 0 ml OU QID [facility] Last Admin: 09/18/17 10:45 Dose: 1 drop Vancomycin HCl (Vancocin 25 Mg/Ml (Oral Use)) 500 mg PO Q6 [facility] PRN Reason: Protocol Last Admin: 09/18/17 11:17 Dose: 500 mg Vitamin A (Vitamin A & D Oint Ud Foilpak) 1 ea TOP Q8 PRN PRN Reason: Dry skin Last Admin: 09/17/17 18:41 Dose: 1 ea - Labs Labs: 09/18/17 05:30 09/18/17 05:30 PT 14.2 SECONDS (9.4-12.5) H 09/17/17 05:45 INR 1.23 (0.93-1.08) H 09/17/17 05:45 APTT 32.4 Seconds (25.1-36.5) 09/17/17 05:45
[2017-09-18] MEDS: Insulin Detemir 100 units/ml Vial (Levemir) SC SCH (22:15)
[2017-09-19] MEDS: Insulin Lispro (HUMAlog) HIGH Coverage SC SCH ×4 (00:07→18:33)
[2017-09-19] MEDS: Levalbuterol 0.63 MG/3 ML Inhal Soln UD IH SCH ×6 (01:29→20:35)
[2017-09-19] MEDS: Vancomycin 25 MG/ML PO SCH ×3 (05:14→18:26)
[2017-09-19] MEDS: metroNIDAZOLE IV 500 mg/100 ml 500 MG/100 ML BAG IVPB SCH ×3 (05:14→21:57)
--- NOTE | 2017-09-19 07:25 | CP.CCUPN ---
<Mayra Pierce - Last Filed: 09/19/17 13:15> CCU Subjective - Physician Review Subjective (Free Text): 09/19/17 7:00 Patient seen and examined at bedside during HD. No acute events overnight. Intubated on vent (35, 5, 18, 450)- failed PS trial this AM. Sedated on diprivan. Opens eyes sponatenously. Feeds on hold. Still has liquid stool in rectal tube. For trach/PEG/permacath placement this afternoon. Complete ROS unobtainable. Critical Care Time Spent (in minutes): 45 CCU Objective - Vital Signs / Intake & Output Vital Signs (Last 4 hours): Vital Signs Temp Pulse BP Pulse Ox 09/19/17 06:30 99.0 F 93 H 112/79 99 09/19/17 06:15 99.0 F 87 140/93 H 100 09/19/17 06:00 99.0 F 95 H 126/83 99 09/19/17 05:00 99.0 F 87 95/60 L 97 09/19/17 04:00 99.0 F 87 94/54 L 98 Intake and Output (Last 8hrs): Intake & Output 09/18/17 09/19/17 09/19/17 22:59 06:59 14:59 Intake Total 1416 980 Output Total 850 1060 Balance 566 -80 Weight 70.76 kg Intake: IV 716 380 Right External Jugular 216 Right Femoral 300 Right internal jugular 380 Tube Feeding 700 300 Other 300 Output: Urine 550 460 Urethral (Chance) 550 460 Stool 300 600 Other: # Bowel Movements 1 3 - Physical Exam Head: Positive for: Atraumatic, Normocephalic Pupils: Positive for: PERRL Conjunctiva: Positive for: Injected Mouth: Positive for: Moist Mucous Membranes, Other (ET tube in place) Neck: Positive for: Other (R IJ TLC in place). Negative for: Lymphadenopathy Respiratory/Chest: Positive for: Rales (at bases), Other (intubated on vent ). Negative for: Accessory Muscle Use, Wheezes, Retracting, Rhonchi, Tachypneic Cardiovascular: Positive for: Normal S1, S2, Tachycardic. Negative for: Regular Rate and Rhythm, Murmurs Abdomen: Positive for: Distention, Normal Bowel Sounds, Other (rectal tube in place). Negative for: Tenderness, Peritoneal Signs Genitourinary Male: Positive for: Penile Swelling Back: Positive for: Normal Inspection Upper Extremity: Positive for: Normal Inspection. Negative for: Cyanosis, Edema Lower Extremity: Positive for: Normal Inspection. Negative for: Edema, CALF TENDERNESS Neurological: Positive for: Other (intubated on diprivan gtt). Negative for: GCS=15 Skin: Positive for: Warm, Dry, Other (bullae on left dorsal surface of hand). Negative for: Rashes Psychiatric: Negative for: Alert, Oriented x 3, Normal Insight, Normal Concentration - Medications Active Medications: Active Medications Generic Name Dose Route Start Last Admin Trade Name Freq PRN Reason Stop Dose Admin Artificial Tears 0.3 ml 09/14/17 10:18 09/17/17 21:43 Refresh Opth Soln OU 0.3 ml Q12 PRN Administration Dry eyes Budesonide 0.5 mg 09/09/17 08:00 09/18/17 19:58 Pulmicort Respules IH 0.5 mg [id number] DENIA Administration Clonidine HCl 1 patch 09/15/17 10:00 09/15/17 14:50 Catapres Tts1 0.1 Mg/24 Hr TD 1 patch Q7D@1000 DENIA Administration Folic Acid 1 mg 09/14/17 11:30 09/18/17 10:43 Folic Acid NG 1 mg DAILY DENIA Administration Hydralazine HCl 10 mg 09/15/17 17:23 09/18/17 11:16 Apresoline IVP 10 mg Q6 PRN Administration BP> 180 Levetiracetam 1,000 mg/ Sodium 110 mls @ 460 mls/hr 09/10/17 10:00 09/18/17 22:14 Chloride IV 460 mls/hr Q12 DENIA Administration Propofol 1,000 mg in 100 mls @ 2.062 mls/hr 09/12/17 11:52 09/18/17 22:13 Diprivan IV 40 mcg/kg/min .Q24H PRN 16.493 mls/hr TITRATE PER MD ORDER Administration Protocol 5 MCG/KG/MIN Metronidazole 500 mg in 100 mls @ 100 mls/hr 09/14/17 14:00 09/19/17 05:14 Flagyl IVPB 100 mls/hr Q8 DENIA Administration Protocol Meropenem 500 mg/ Sodium 100 mls @ 100 mls/hr 09/17/17 10:15 09/18/17 22:15 Chloride IVPB 09/24/17 10:16 100 mls/hr Q12 DENIA Administration Protocol Insulin Detemir 15 unit 09/17/17 22:00 09/18/17 22:15 Levemir SC 15 unit HS DENIA Administration Insulin Human Lispro 0 units 09/17/17 18:40 09/19/17 06:43 Humalog High SC Not Given Q6H DENIA Protocol Levalbuterol HCl 0.63 mg 09/10/17 20:00 09/19/17 01:37 Xopenex IH 0.63 mg [id number] DENIA Administration Lorazepam 2 mg 09/10/17 09:16 09/14/17 10:15 Ativan IVP 2 mg Q3H PRN Administration Agitation Protocol Multivitamins/Vitamin C 15 ml 09/11/17 08:00 09/18/17 10:43 Multi-Delyn Liquid PO 15 ml 0800 DENIA Administration Pantoprazole Sodium 40 mg 09/17/17 11:45 09/18/17 22:12 Protonix Inj IVP 40 mg Q12 DENIA Administration Thiamine HCl 100 mg 09/12/17 10:00 09/18/17 10:43 Vitamin B1 Inj IV 100 mg DAILY DENIA Administration Tobramycin/Dexamethasone 0 ml 09/14/17 18:00 09/18/17 23:00 Tobradex Opht Susp OU 1 drop QID DENIA Administration Vancomycin HCl 500 mg 09/09/17 18:00 09/19/17 05:14 Vancocin 25 Mg/Ml (Oral Use) PO 500 mg Q6 DENIA Administration Protocol Vitamin A 1 ea 09/17/17 11:45 09/17/17 18:41 Vitamin A & D Oint Ud Foilpak TOP 1 ea Q8 PRN Administration Dry skin - Patient Studies Lab Studies: Microbiology Studies 09/17/17 13:00 Gram Stain - Final Trachasp Sputum Culture - Preliminary Gram Negative Hector 09/17/17 10:45 Blood Culture - Preliminary Blood-Venous NO GROWTH AFTER 24 HOURS 09/17/17 10:30 Blood Culture - Preliminary Blood-Venous NO GROWTH AFTER 24 HOURS Lab Studies 09/19/17 09/19/17 09/18/17 Range/Units 05:59 00:04 18:15 WBC (4.5-11.0) 10^3/ul RBC (3.5-6.1) 10^6/uL Hgb (14.0-18.0) g/dL Hct (42.0-52.0) % MCV (80.0-105.0) fl MCH (25.0-35.0) pg MCHC (31.0-37.0) g/dl RDW (11.5-14.5) % Plt Count (120.0-450.0) 10^3/uL MPV (7.0-11.0) fl Gran % (50.0-68.0) % Lymph % (Auto) (22.0-35.0) % [place] % (Auto) (1.0-6.0) % Eos % (Auto) (1.5-5.0) % Baso % (Auto) (0.0-3.0) % Gran # (1.4-6.5) Lymph # (Auto) (1.2-3.4) [place] # (Auto) (0.1-0.6) Eos # (Auto) (0.0-0.7) Baso # (Auto) (0.0-2.0) K/mm3 Sodium (132-148) mmol/L Potassium (3.6-5.0) mmol/L Chloride (98-107) mmol/L Carbon Dioxide (21-33) mmol/L Anion Gap (10-20) BUN (7-21) mg/dL Creatinine (0.8-1.5) mg/dl Est GFR ( Amer) Est GFR (Non-Af Amer) POC Glucose (mg/dL) 331 H 365 H 398 H (65-110) mg/dL Random Glucose (70-110) mg/dL Calcium (8.4-10.5) mg/dL Phosphorus (2.5-4.5) mg/dL Magnesium (1.7-2.2) mg/dL Total Bilirubin (0.2-1.3) mg/dL AST (17-59) U/L ALT (7-56) U/L Alkaline Phosphatase (38-126) U/L Total Protein (5.8-8.3) g/dL Albumin (3.0-4.8) g/dL Globulin gm/dL Albumin/Globulin Ratio (1.1-1.8) 09/18/17 09/18/17 09/18/17 Range/Units 11:21 05:30 05:30 WBC 18.1 H (4.5-11.0) 10^3/ul RBC 3.39 L (3.5-6.1) 10^6/uL Hgb 10.2 L (14.0-18.0) g/dL Hct 32.0 L (42.0-52.0) % MCV 94.4 (80.0-105.0) fl MCH 30.1 (25.0-35.0) pg MCHC 31.9 (31.0-37.0) g/dl RDW 17.7 H (11.5-14.5) % Plt Count 113 L (120.0-450.0) 10^3/uL MPV 12.1 H (7.0-11.0) fl Gran % 67.3 (50.0-68.0) % Lymph % (Auto) 19.7 L (22.0-35.0) % [place] % (Auto) 11.0 H (1.0-6.0) % Eos % (Auto) 0.2 L (1.5-5.0) % Baso % (Auto) 1.8 (0.0-3.0) % Gran # 12.16 H (1.4-6.5) Lymph # (Auto) 3.6 H (1.2-3.4) [place] # (Auto) 2.0 H (0.1-0.6) Eos # (Auto) 0.0 (0.0-0.7) Baso # (Auto) 0.33 (0.0-2.0) K/mm3 Sodium 142 (132-148) mmol/L Potassium 4.2 (3.6-5.0) mmol/L Chloride 108 H (98-107) mmol/L Carbon Dioxide 22 (21-33) mmol/L Anion Gap 16 (10-20) BUN 42 H (7-21) mg/dL Creatinine 2.5 H (0.8-1.5) mg/dl Est GFR ( Amer) 33 Est GFR (Non-Af Amer) 28 POC Glucose (mg/dL) 277 H (65-110) mg/dL Random Glucose 337 H* (70-110) mg/dL Calcium 8.9 (8.4-10.5) mg/dL Phosphorus 3.2 (2.5-4.5) mg/dL Magnesium 1.7 (1.7-2.2) mg/dL Total Bilirubin 1.3 (0.2-1.3) mg/dL AST 40 (17-59) U/L ALT 44 (7-56) U/L Alkaline Phosphatase 312 H D (38-126) U/L Total Protein 6.2 (5.8-8.3) g/dL Albumin 2.7 L (3.0-4.8) g/dL Globulin 3.5 gm/dL Albumin/Globulin Ratio 0.8 L (1.1-1.8) 09/18/17 Range/Units 00:10 WBC (4.5-11.0) 10^3/ul RBC (3.5-6.1) 10^6/uL Hgb (14.0-18.0) g/dL Hct (42.0-52.0) % MCV (80.0-105.0) fl MCH (25.0-35.0) pg MCHC (31.0-37.0) g/dl RDW (11.5-14.5) % Plt Count (120.0-450.0) 10^3/uL MPV (7.0-11.0) fl Gran % (50.0-68.0) % Lymph % (Auto) (22.0-35.0) % [place] % (Auto) (1.0-6.0) % Eos % (Auto) (1.5-5.0) % Baso % (Auto) (0.0-3.0) % Gran # (1.4-6.5) Lymph # (Auto) (1.2-3.4) [place] # (Auto) (0.1-0.6) Eos # (Auto) (0.0-0.7) Baso # (Auto) (0.0-2.0) K/mm3 Sodium (132-148) mmol/L Potassium (3.6-5.0) mmol/L Chloride (98-107) mmol/L Carbon Dioxide (21-33) mmol/L Anion Gap (10-20) BUN (7-21) mg/dL Creatinine (0.8-1.5) mg/dl Est GFR ( Amer) Est GFR (Non-Af Amer) POC Glucose (mg/dL) (65-110) mg/dL Random Glucose (70-110) mg/dL Calcium (8.4-10.5) mg/dL Phosphorus (2.5-4.5) mg/dL Magnesium 1.6 L (1.7-2.2) mg/dL Total Bilirubin (0.2-1.3) mg/dL AST (17-59) U/L ALT (7-56) U/L Alkaline Phosphatase (38-126) U/L Total Protein (5.8-8.3) g/dL Albumin (3.0-4.8) g/dL Globulin gm/dL Albumin/Globulin Ratio (1.1-1.8) Laboratory Results - last 24 hr 09/18/17 09/18/17 09/18/17 00:10 05:30 05:30 WBC 18.1 H RBC 3.39 L Hgb 10.2 L Hct 32.0 L MCV 94.4 MCH 30.1 MCHC 31.9 RDW 17.7 H Plt Count 113 L MPV 12.1 H Gran % 67.3 Lymph % (Auto) 19.7 L [place] % (Auto) 11.0 H Eos % (Auto) 0.2 L Baso % (Auto) 1.8 Gran # 12.16 H Lymph # (Auto) 3.6 H [place] # (Auto) 2.0 H Eos # (Auto) 0.0 Baso # (Auto) 0.33 Sodium 142 Potassium 4.2 Chloride 108 H Carbon Dioxide 22 Anion Gap 16 BUN 42 H Creatinine 2.5 H Est GFR ( Amer) 33 Est GFR (Non-Af Amer) 28 POC Glucose (mg/dL) Random Glucose 337 H* Calcium 8.9 Phosphorus 3.2 Magnesium 1.6 L 1.7 Total Bilirubin 1.3 AST 40 ALT 44 Alkaline Phosphatase 312 H D Total Protein 6.2 Albumin 2.7 L Globulin 3.5 Albumin/Globulin Ratio 0.8 L 09/18/17 09/18/17 09/19/17 11:21 18:15 00:04 WBC RBC Hgb Hct MCV MCH MCHC RDW Plt Count MPV Gran % Lymph % (Auto) [place] % (Auto) Eos % (Auto) Baso % (Auto) Gran # Lymph # (Auto) [place] # (Auto) Eos # (Auto) Baso # (Auto) Sodium Potassium Chloride Carbon Dioxide Anion Gap BUN Creatinine Est GFR ( Amer) Est GFR (Non-Af Amer) POC Glucose (mg/dL) 277 H 398 H 365 H Random Glucose Calcium Phosphorus Magnesium Total Bilirubin AST ALT Alkaline Phosphatase Total Protein Albumin Globulin Albumin/Globulin Ratio 09/19/17 05:59 WBC RBC Hgb Hct MCV MCH MCHC RDW Plt Count MPV Gran % Lymph % (Auto) [place] % (Auto) Eos % (Auto) Baso % (Auto) Gran # Lymph # (Auto) [place] # (Auto) Eos # (Auto) Baso # (Auto) Sodium Potassium Chloride Carbon Dioxide Anion Gap BUN Creatinine Est GFR ( Amer) Est GFR (Non-Af Amer) POC Glucose (mg/dL) 331 H Random Glucose Calcium Phosphorus Magnesium Total Bilirubin AST ALT Alkaline Phosphatase Total Protein Albumin Globulin Albumin/Globulin Ratio Fingerstick Blood Sugar Results: 397 Review of Systems - Review of Systems Systems not reviewed;Unavailable: Intubated Critical Care Progress Note - Nutrition Nutrition: Nutrition Category Date Time Status NPO Diet [DIET] Diets 09/19/17 Breakfast Ordered Assessment/Plan - Assessment and Plan (Free Text) Assessment: 47yo male PMHx of DM2, HTN and alcohol abuse found to be in septic shock likely secondary to pancreatitis, aspiration pneumonia, IRWIN, transaminitis, seizures, metabolic acidosis, thrombocytopenia likely secondary to alcohol abuse, cardiac arrest s/p ROSC and respiratory failure. Plan: Neuro: Pt intubated on diprivan Head CT: negative Depakote d/c and changed to Keppra IV BID EEG: no seizure activity Repeat head CT: no acute bleed Seizure precautions Maintain normothemia Neuro consulted- recs appreciated CV: Cardiac arrest s/p ROSC Pt tachycardic Maintain MAP >65 Echo: unremarkable Clonidine patch weekly Monitor I&O Cardio consulted- recs appreciated Pulm: Intubated on PRVC- will titrate to maintain SpO2>92% Pt has crackles on exam and is in metabolic acidosis CXR showed pneumonia of RUL and L perihilar HOB elevated- asp precaution Pulmonary toilet For trach today 09/19 Pulm consulted GI: Pancreatitis resolved and transaminitis trending down Abd U/S: fatty infiltration of liver, no evidence of cholelithiasis/ cholecystitis; no sonographic evidence of acute pancreatitis Folic acid, multivitamin, thiamine Avoid nephrotoxic medications Lipase and Amylase WNL Feeds on hold for PEG today 09/19 Hep panel negative Protonix q12 GI consulted Surg consulted for feeding tube Heme: Thrombocytopenia secondary to EtOH abuse resolved. Hgb stable- no overt signs of bleeding Nephro: Patient had HD today Maintain euvolemia Permacath placement today 09/19 Avoid nephrotoxic agents Monitor Is and Os and Daily Weight Nephro consulted- recs appreciated ID: C Diff positive ID consulted- recs appreciated afebrile overnight PO Vancomycin and Flagyl for C diff Trach culture: E Coli Repeat blood and urine negative HIV, Strep, and legionella negative Meds as per ID: Vancocin PO, Flagyl q8, Merrem 500 q12 Endo: Hx of DM Pt on ISS high Levemir 15u sc hs Accucheck q6 Maintain euglycemia 140-180s GI ppx: Protonix 40mg ivp q12 DVT ppx: SCDs- no heparin due to thrombocytopenia Diet: feeds on hold feeding tube placement Dispo: Prognosis guarded. Palliative care consulted. Pending trach/PEG/Permacath Discussed with Dr. Angela pierce PGY2 <Hasmukh Miller - Last Filed: 09/19/17 17:19> CCU Objective - Vital Signs / Intake & Output Vital Signs (Last 4 hours): Vital Signs Pulse Resp BP Pulse Ox 09/19/17 15:28 81 18 100 09/19/17 15:15 87 124/84 100 09/19/17 15:00 86 126/88 100 09/19/17 14:45 82 126/84 100 09/19/17 14:30 77 119/84 100 09/19/17 14:15 74 124/83 100 09/19/17 14:00 84 139/102 H 100 09/19/17 13:45 87 124/85 99 09/19/17 13:30 86 135/87 100 09/19/17 13:15 85 113/75 99 Intake and Output (Last 8hrs): Intake & Output 09/19/17 09/19/17 09/19/17 06:59 14:59 22:59 Intake Total 1080 Output Total 1060 Balance 20 Weight 156 lb Intake: IV 480 Right internal jugular 380 Tube Feeding 300 Other 300 Output: Urine 460 Urethral (Chance) 460 Stool 600 Other: # Bowel Movements 3 - Medications Active Medications: Active Medications Generic Name Dose Route Start Last Admin Trade Name Freq PRN Reason Stop Dose Admin Artificial Tears 0.3 ml 09/14/17 10:18 09/17/17 21:43 Refresh Opth Soln OU 0.3 ml Q12 PRN Administration Dry eyes Budesonide 0.5 mg 09/09/17 08:00 09/19/17 07:58 Pulmicort Respules IH 0.5 mg [id number] DENIA Administration Clonidine HCl 1 patch 09/15/17 10:00 09/15/17 14:50 Catapres Tts1 0.1 Mg/24 Hr TD 1 patch Q7D@1000 DENIA Administration Folic Acid 1 mg 09/14/17 11:30 09/19/17 10:17 Folic Acid NG 1 mg DAILY DENIA Administration Hydralazine HCl 10 mg 09/15/17 17:23 09/18/17 11:16 Apresoline IVP 10 mg Q6 PRN Administration BP> 180 Levetiracetam 1,000 mg/ Sodium 110 mls @ 460 mls/hr 09/10/17 10:00 09/19/17 10:14 Chloride IV 460 mls/hr Q12 DENIA Administration Propofol 1,000 mg in 100 mls @ 2.062 mls/hr 09/12/17 11:52 09/19/17 08:39 Diprivan IV 40 mcg/kg/min .Q24H PRN 16.493 mls/hr TITRATE PER MD ORDER Administration Protocol 5 MCG/KG/MIN Metronidazole 500 mg in 100 mls @ 100 mls/hr 09/14/17 14:00 09/19/17 13:12 Flagyl IVPB 100 mls/hr Q8 DENIA Administration Protocol Meropenem 500 mg/ Sodium 100 mls @ 100 mls/hr 09/17/17 10:15 09/19/17 13:53 Chloride IVPB 09/24/17 10:16 100 mls/hr Q12 DENIA Administration Protocol Insulin Detemir 15 unit 09/17/17 22:00 09/18/17 22:15 Levemir SC 15 unit HS DENIA Administration Insulin Human Lispro 0 units 09/17/17 18:40 09/19/17 13:52 Humalog High SC 7 units Q6H DENIA Administration Protocol Levalbuterol HCl 0.63 mg 09/10/17 20:00 09/19/17 14:08 Xopenex IH 0.63 mg [id number] DENIA Administration Lorazepam 2 mg 09/10/17 09:16 09/14/17 10:15 Ativan IVP 2 mg Q3H PRN Administration Agitation Protocol Multivitamins/Vitamin C 15 ml 09/11/17 08:00 09/19/17 10:16 Multi-Delyn Liquid PO 15 ml 0800 DENIA Administration Pantoprazole Sodium 40 mg 09/17/17 11:45 09/19/17 10:10 Protonix Inj IVP 40 mg Q12 DENIA Administration Thiamine HCl 100 mg 09/12/17 10:00 09/19/17 10:10 Vitamin B1 Inj IV 100 mg DAILY DENIA Administration Tobramycin/Dexamethasone 0 ml 09/14/17 18:00 09/19/17 13:54 Tobradex Opht Susp OU 1 drop QID DENIA Administration Vancomycin HCl 500 mg 09/09/17 18:00 09/19/17 11:50 Vancocin 25 Mg/Ml (Oral Use) PO 500 mg Q6 DENIA Administration Protocol Vitamin A 1 ea 09/17/17 11:45 09/17/17 18:41 Vitamin A & D Oint Ud Foilpak TOP 1 ea Q8 PRN Administration Dry skin - Patient Studies Lab Studies: Microbiology Studies 09/17/17 13:00 Urine Culture - Final Urine,Chance No Growth (<1,000 CFU/ML) 09/17/17 10:45 Blood Culture - Preliminary Blood-Venous NO GROWTH AFTER 48 HOURS 09/17/17 10:30 Blood Culture - Preliminary Blood-Venous NO GROWTH AFTER 48 HOURS 09/17/17 13:00 Gram Stain - Final Trachasp Sputum Culture - Final Escherichia Coli Lab Studies 09/19/17 09/19/17 09/19/17 Range/Units 12:55 09:30 09:30 WBC 21.3 H (4.5-11.0) 10^3/ul RBC 2.96 L (3.5-6.1) 10^6/uL Hgb 9.0 L (14.0-18.0) g/dL Hct 27.6 L (42.0-52.0) % MCV 93.2 (80.0-105.0) fl MCH 30.4 (25.0-35.0) pg MCHC 32.6 (31.0-37.0) g/dl RDW 17.7 H (11.5-14.5) % Plt Count 135 (120.0-450.0) 10^3/uL MPV 11.9 H (7.0-11.0) fl Gran % 79.9 H (50.0-68.0) % Lymph % (Auto) 10.2 L (22.0-35.0) % [place] % (Auto) 9.4 H (1.0-6.0) % Eos % (Auto) 0.1 L (1.5-5.0) % Baso % (Auto) 0.4 (0.0-3.0) % Gran # 16.98 H (1.4-6.5) Lymph # (Auto) 2.2 (1.2-3.4) [place] # (Auto) 2.0 H (0.1-0.6) Eos # (Auto) 0.0 (0.0-0.7) Baso # (Auto) 0.09 (0.0-2.0) K/mm3 Sodium 141 (132-148) mmol/L Potassium 3.5 L (3.6-5.0) mmol/L Chloride 102 (98-107) mmol/L Carbon Dioxide 28 (21-33) mmol/L Anion Gap 14 (10-20) BUN 20 (7-21) mg/dL Creatinine 1.4 (0.8-1.5) mg/dl Est GFR ( Amer) > 60 Est GFR (Non-Af Amer) 54 POC Glucose (mg/dL) 258 H (65-110) mg/dL Random Glucose 201 H (70-110) mg/dL Calcium 9.1 (8.4-10.5) mg/dL Phosphorus 2.3 L (2.5-4.5) mg/dL Magnesium 1.6 L (1.7-2.2) mg/dL Total Bilirubin 1.3 (0.2-1.3) mg/dL AST 38 (17-59) U/L ALT 42 (7-56) U/L Alkaline Phosphatase 319 H (38-126) U/L Total Protein 7.0 (5.8-8.3) g/dL Albumin 2.9 L (3.0-4.8) g/dL Globulin 4.1 gm/dL Albumin/Globulin Ratio 0.7 L (1.1-1.8) 09/19/17 09/19/17 09/19/17 Range/Units 07:34 05:59 00:04 WBC (4.5-11.0) 10^3/ul RBC (3.5-6.1) 10^6/uL Hgb (14.0-18.0) g/dL Hct (42.0-52.0) % MCV (80.0-105.0) fl MCH (25.0-35.0) pg MCHC (31.0-37.0) g/dl RDW (11.5-14.5) % Plt Count (120.0-450.0) 10^3/uL MPV (7.0-11.0) fl Gran % (50.0-68.0) % Lymph % (Auto) (22.0-35.0) % [place] % (Auto) (1.0-6.0) % Eos % (Auto) (1.5-5.0) % Baso % (Auto) (0.0-3.0) % Gran # (1.4-6.5) Lymph # (Auto) (1.2-3.4) [place] # (Auto) (0.1-0.6) Eos # (Auto) (0.0-0.7) Baso # (Auto) (0.0-2.0) K/mm3 Sodium (132-148) mmol/L Potassium (3.6-5.0) mmol/L Chloride (98-107) mmol/L Carbon Dioxide (21-33) mmol/L Anion Gap (10-20) BUN (7-21) mg/dL Creatinine (0.8-1.5) mg/dl Est GFR ( Amer) Est GFR (Non-Af Amer) POC Glucose (mg/dL) 266 H 331 H 365 H (65-110) mg/dL Random Glucose (70-110) mg/dL Calcium (8.4-10.5) mg/dL Phosphorus (2.5-4.5) mg/dL Magnesium (1.7-2.2) mg/dL Total Bilirubin (0.2-1.3) mg/dL AST (17-59) U/L ALT (7-56) U/L Alkaline Phosphatase (38-126) U/L Total Protein (5.8-8.3) g/dL Albumin (3.0-4.8) g/dL Globulin gm/dL Albumin/Globulin Ratio (1.1-1.8) 09/18/17 Range/Units 18:15 WBC (4.5-11.0) 10^3/ul RBC (3.5-6.1) 10^6/uL Hgb (14.0-18.0) g/dL Hct (42.0-52.0) % MCV (80.0-105.0) fl MCH (25.0-35.0) pg MCHC (31.0-37.0) g/dl RDW (11.5-14.5) % Plt Count (120.0-450.0) 10^3/uL MPV (7.0-11.0) fl Gran % (50.0-68.0) % Lymph % (Auto) (22.0-35.0) % [place] % (Auto) (1.0-6.0) % Eos % (Auto) (1.5-5.0) % Baso % (Auto) (0.0-3.0) % Gran # (1.4-6.5) Lymph # (Auto) (1.2-3.4) [place] # (Auto) (0.1-0.6) Eos # (Auto) (0.0-0.7) Baso # (Auto) (0.0-2.0) K/mm3 Sodium (132-148) mmol/L Potassium (3.6-5.0) mmol/L Chloride (98-107) mmol/L Carbon Dioxide (21-33) mmol/L Anion Gap (10-20) BUN (7-21) mg/dL Creatinine (0.8-1.5) mg/dl Est GFR ( Amer) Est GFR (Non-Af Amer) POC Glucose (mg/dL) 398 H (65-110) mg/dL Random Glucose (70-110) mg/dL Calcium (8.4-10.5) mg/dL Phosphorus (2.5-4.5) mg/dL Magnesium (1.7-2.2) mg/dL Total Bilirubin (0.2-1.3) mg/dL AST (17-59) U/L ALT (7-56) U/L Alkaline Phosphatase (38-126) U/L Total Protein (5.8-8.3) g/dL Albumin (3.0-4.8) g/dL Globulin gm/dL Albumin/Globulin Ratio (1.1-1.8) Laboratory Results - last 24 hr 09/18/17 09/19/17 09/19/17 18:15 00:04 05:59 WBC RBC Hgb Hct MCV MCH MCHC RDW Plt Count MPV Gran % Lymph % (Auto) [place] % (Auto) Eos % (Auto) Baso % (Auto) Gran # Lymph # (Auto) [place] # (Auto) Eos # (Auto) Baso # (Auto) Sodium Potassium Chloride Carbon Dioxide Anion Gap BUN Creatinine Est GFR ( Amer) Est GFR (Non-Af Amer) POC Glucose (mg/dL) 398 H 365 H 331 H Random Glucose Calcium Phosphorus Magnesium Total Bilirubin AST ALT Alkaline Phosphatase Total Protein Albumin Globulin Albumin/Globulin Ratio 09/19/17 09/19/17 09/19/17 07:34 09:30 09:30 WBC 21.3 H RBC 2.96 L Hgb 9.0 L Hct 27.6 L MCV 93.2 MCH 30.4 MCHC 32.6 RDW 17.7 H Plt Count 135 MPV 11.9 H Gran % 79.9 H Lymph % (Auto) 10.2 L [place] % (Auto) 9.4 H Eos % (Auto) 0.1 L Baso % (Auto) 0.4 Gran # 16.98 H Lymph # (Auto) 2.2 [place] # (Auto) 2.0 H Eos # (Auto) 0.0 Baso # (Auto) 0.09 Sodium 141 Potassium 3.5 L Chloride 102 Carbon Dioxide 28 Anion Gap 14 BUN 20 Creatinine 1.4 Est GFR ( Amer) > 60 Est GFR (Non-Af Amer) 54 POC Glucose (mg/dL) 266 H Random Glucose 201 H Calcium 9.1 Phosphorus 2.3 L Magnesium 1.6 L Total Bilirubin 1.3 AST 38 ALT 42 Alkaline Phosphatase 319 H Total Protein 7.0 Albumin 2.9 L Globulin 4.1 Albumin/Globulin Ratio 0.7 L 09/19/17 12:55 WBC RBC Hgb Hct MCV MCH MCHC RDW Plt Count MPV Gran % Lymph % (Auto) [place] % (Auto) Eos % (Auto) Baso % (Auto) Gran # Lymph # (Auto) [place] # (Auto) Eos # (Auto) Baso # (Auto) Sodium Potassium Chloride Carbon Dioxide Anion Gap BUN Creatinine Est GFR ( Amer) Est GFR (Non-Af Amer) POC Glucose (mg/dL) 258 H Random Glucose Calcium Phosphorus Magnesium Total Bilirubin AST ALT Alkaline Phosphatase Total Protein Albumin Globulin Albumin/Globulin Ratio Critical Care Progress Note - Nutrition Nutrition: Nutrition Category Date Time Status NPO Diet [DIET] Diets 09/19/17 Breakfast Ordered Attending/Attestation - Attestation I have personally seen and examined this patient.: Yes I have fully participated in the care of the patient.: Yes I have reviewed all pertinent clinical information: Yes Notes (Text): 09/19/17 17:11 47 yo with anoxic brain injury, now-->trach/peg/permcath. off of sedation, continue with conservative fluid management, daily weaning trials, conservative 02 management. HOB>35, oral hygiene, DVT/GI prophylaxis. still not responding to touch and verbal stimuli. ccm time 40 min
[2017-09-19] MEDS: Budesonide 0.5 mg/2 ml Inhal Susp UD IH SCH ×2 (07:58→20:29)
--- NOTE | 2017-09-19 08:36 | CP.PCM.PN ---
<Jay Harden - Last Filed: 09/19/17 11:45> Subjective - Date & Time of Evaluation Date of Evaluation: 09/19/17 Time of Evaluation: 07:35 - Subjective Subjective: Jay Harden PGY1 IM Progress Note Patient was seen and examined at bedside in ICU. Patient remains intubated and sedated on Propofol, but is more arousable today when off the sedation. Patient is off pressors and has not been requiring them. There is loose brown stools in rectal tube bag and lazo in. Patient remains in isolation due to c. diff infection. Receiving dialysis session when seen this morning (6 so far, confirmed with dialysis nurse). ROS unobtainable. Objective - Vital Signs/Intake and Output Vital Signs (last 24 hours): Temp Pulse Resp BP Pulse Ox 99.0 F 93 H 27 H 112/79 99 09/19/17 06:30 09/19/17 06:30 09/18/17 17:00 09/19/17 06:30 09/19/17 06:30 Intake and Output: 09/19/17 09/19/17 06:59 18:59 Intake Total 1080 Output Total 1060 Balance 20 - Medications Medications: Current Medications Artificial Tears (Refresh Opth Soln) 0.3 ml OU Q12 PRN PRN Reason: Dry eyes Last Admin: 09/17/17 21:43 Dose: 0.3 ml Budesonide (Pulmicort Respules) 0.5 mg IH [id number] [facility] Last Admin: 09/19/17 07:58 Dose: 0.5 mg Clonidine HCl (Catapres Tts1 0.1 Mg/24 Hr) 1 patch TD Q7D@1000 [facility] Last Admin: 09/15/17 14:50 Dose: 1 patch Folic Acid (Folic Acid) 1 mg NG DAILY [facility] Last Admin: 09/18/17 10:43 Dose: 1 mg Hydralazine HCl (Apresoline) 10 mg IVP Q6 PRN PRN Reason: BP> 180 Last Admin: 09/18/17 11:16 Dose: 10 mg Levetiracetam 1,000 mg/ Sodium (Chloride) 110 mls @ 460 mls/hr IV Q12 [facility] Last Admin: 09/18/17 22:14 Dose: 460 mls/hr Propofol (Diprivan) 1,000 mg in 100 mls @ 2.062 mls/hr IV .Q24H PRN; Protocol; 5 MCG/KG/MIN PRN Reason: TITRATE PER MD ORDER Last Admin: 09/18/17 22:13 Dose: 40 mcg/kg/min, 16.493 mls/hr Metronidazole (Flagyl) 500 mg in 100 mls @ 100 mls/hr IVPB Q8 [facility] PRN Reason: Protocol Last Admin: 09/19/17 05:14 Dose: 100 mls/hr Meropenem 500 mg/ Sodium (Chloride) 100 mls @ 100 mls/hr IVPB Q12 [facility] PRN Reason: Protocol Stop: 09/24/17 10:16 Last Admin: 09/18/17 22:15 Dose: 100 mls/hr Insulin Detemir (Levemir) 15 unit SC HS [facility] Last Admin: 09/18/17 22:15 Dose: 15 unit Insulin Human Lispro (Humalog High) 0 units SC Q6H [facility] PRN Reason: Protocol Last Admin: 09/19/17 06:43 Dose: Not Given Levalbuterol HCl (Xopenex) 0.63 mg IH [id number] [facility] Last Admin: 09/19/17 07:59 Dose: 0.63 mg Lorazepam (Ativan) 2 mg IVP Q3H PRN; Protocol PRN Reason: Agitation Last Admin: 09/14/17 10:15 Dose: 2 mg Multivitamins/Vitamin C (Multi-Delyn Liquid) 15 ml PO 0800 [facility] Last Admin: 09/18/17 10:43 Dose: 15 ml Pantoprazole Sodium (Protonix Inj) 40 mg IVP Q12 [facility] Last Admin: 09/18/17 22:12 Dose: 40 mg Thiamine HCl (Vitamin B1 Inj) 100 mg IV DAILY [facility] Last Admin: 09/18/17 10:43 Dose: 100 mg Tobramycin/Dexamethasone (Tobradex Opht Susp) 0 ml OU QID [facility] Last Admin: 09/18/17 23:00 Dose: 1 drop Vancomycin HCl (Vancocin 25 Mg/Ml (Oral Use)) 500 mg PO Q6 [facility] PRN Reason: Protocol Last Admin: 09/19/17 05:14 Dose: 500 mg Vitamin A (Vitamin A & D Oint Ud Foilpak) 1 ea TOP Q8 PRN PRN Reason: Dry skin Last Admin: 09/17/17 18:41 Dose: 1 ea - Labs Labs: 09/18/17 05:30 09/18/17 05:30 PT 14.2 SECONDS (9.4-12.5) H 09/17/17 05:45 INR 1.23 (0.93-1.08) H 09/17/17 05:45 APTT 32.4 Seconds (25.1-36.5) 09/17/17 05:45 - Additional Findings Additional findings: - Constitutional Appears: No Acute Distress - Head Exam Head Exam: NORMAL INSPECTION - Eye Exam Eye Exam: PERRL, Scleral icterus - ENT Exam Additional comments: intubated w/ ETT OGT secured to ETT in place - Neck Exam Additional comments: R IJ TLC in place - Respiratory Exam Respiratory Exam: Rales (b/l bases, improved), Rhonchi (b/l bases R>L, improved) . absent: Decreased Breath Sounds Additional comments: intubated - Cardiovascular Exam Cardiovascular Exam: RRR, +S1, +S2 - GI/Abdominal Exam GI & Abdominal Exam: Distended, Soft, Normal Bowel Sounds. absent: Guarding - Rectal Exam Additional comments: rectal tube draining brown loose stools, decreased in quantity than prior exams - Exam Additional comments: penile swelling (circumferential) lazo catheter in place - Extremities Exam Extremities Exam: absent: Pedal Edema Additional comments: UE swelling 1+ pedal edema 2+ L hand ruptured bullous R femoral shiley catheter in place - Back Exam Back Exam: NORMAL INSPECTION - Neurological Exam Neurological Exam: Altered. absent: Alert Additional comments: remains sedated, but is more awake and arousable today when off the sedation; eyes opened spontaneously - Psychiatric Exam Additional comments: was not obtained due to current condition - Skin Skin Exam: Normal Color, Warm Assessment and Plan - Assessment and Plan (Free Text) Assessment: 47yo M with a PMH of DM2, HTN and alcohol use who presented with URI symptoms such as cough, shortness of breath, palpitations. Last alcoholic drink was night prior to admission. Patient was admitted for septic shock (with lactate of 7.7 on presentation), high anion gap metabolic acidosis, acute pancreatitis 2 /2 ETOH vs triglycerides, IRWIN vs CKD, elevated LFTs likely 2/2 ETOH, elevated BNP, hyponatremia, and hypokalemia. s/p cardiac arrest and ROSC. Upon ROSC, patient vomited and likely aspirated, but was turned to the side and suctioned. Intubated and on vent with sedation in ICU. Patient initially required pressors to maintain BP but is no longer needing them. Remains on Keppra for seizure ppx. IRWIN did not improve, so patient required temporary dialysis (6 sessions so far). Surgery consulted for trach/peg and permacath placement to be done in OR today. Once done, the patient will require local [facility] acute center for continued recovery. Plan: 1. Septic shock likely 2/2 pancreatitis, resolved - no fevers overnight - initial blood, urine, trachea cultures showed no growth - 09/17 blood and urine cultures negative - trach-aspirate growing e.coli (sensitive to meropenem which patient is on), previously was not - cont Flagyl and PO Vanc for +cdiff in stool culture - cont Merrem for trach aspirate e.coli infection - continue ICU monitoring due to unstable vitals and altered mental state - cont tube feeds - CT Findings on admission were concerning for acute pancreatitis w/o ductal dilatation, calcifications or pseudocyst, and alcoholic liver steatosis - BP maintained off pressors currently, cont to monitor - cont contact precautions for c.diff infection - tylenol supp PRN - Monitor vitals - Maintain MAP > 65 - ID consulted, recs appreciated - GI consulted, recs appreciated - Surgery consulted for trach/peg/permacath placement, recs appreciated - Palliative care consulted for advanced directives, patient will be transferred to local [facility] acute center 2. AMS 2/2 Anion gap metabolic acidosis likely 2/2 lactic acidosis and ETOH - s/p cardiac arrest 09/08 - plan for trach/peg and permacath today per Surgery - patient was intubated to protect airway due to hypoxemia and vomiting to reduce risk of aspiration; daily vent weaning trials - CT Head showed no acute intracranial abnormalities and mild chronic microangiopathic changes, w/ moderate global parencyhmal volume loss - ativan prn agitation - Maintain SaO2 > 90% - EEG was normal - cont Keppra for seizure ppx - Neurology consulted, recs appreciated - Cardiology consulted, recs appreciated 3. IRWIN vs CKD a/w Hypophosphatemia - s/p 6 dialysis sessions (#6 today) - Permacath placement today by surgery; Shiley catheter will be removed after to insure proper access for dialysis - FENa 3.2 indicating ATN - given septic shock, likely component of pre-renal and intrinsic ischemic ATN ( coarse granular casts seen on UA) - avoid nephrotoxins - Electrolyte imbalances will be repleted (K, Mg, Phos) - Nephrology consulted, recs appreciated 4. HTN - clonidine patch q7d - hydralazine prn - monitor VS 5. Hypergylcemia - Levemir increased to 15u HS - ISS - could be a mix of reactive hyperglycemia and baseline uncontrolled DM2 - TSH and A1C WNL 6. 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 Transaminitis likely w/ underlying liver disease, improving - likely 2/2 shock liver and chronic ETOH use since INR is elevated - cont thiamine, MV and folic acid - hepatitis panel negative - HIV pending - continue to monitor 8. Poor prognosis - discuss with family/ poor prognosis and long-term plane - Palliative care consulted - patient for LTAC following tach/peg and permacath placement Patient was seen, examined and discussed with attending, Dr. Jeannette Harden PGY1 Pager # [phone] <Tatum Machado - Last Filed: 09/19/17 15:59> Objective - Vital Signs/Intake and Output Vital Signs (last 24 hours): Temp Pulse Resp BP Pulse Ox 98.2 F 84 94 H 139/102 H 100 09/19/17 12:00 09/19/17 14:00 09/19/17 08:00 09/19/17 14:00 09/19/17 14:00 Intake and Output: 09/19/17 09/19/17 06:59 18:59 Intake Total 1180 Output Total 1060 Balance 120 - Medications Medications: Current Medications Artificial Tears (Refresh Opth Soln) 0.3 ml OU Q12 PRN PRN Reason: Dry eyes Last Admin: 09/17/17 21:43 Dose: 0.3 ml Budesonide (Pulmicort Respules) 0.5 mg IH [id number] [facility] Last Admin: 09/19/17 07:58 Dose: 0.5 mg Clonidine HCl (Catapres Tts1 0.1 Mg/24 Hr) 1 patch TD Q7D@1000 [facility] Last Admin: 09/15/17 14:50 Dose: 1 patch Folic Acid (Folic Acid) 1 mg NG DAILY [facility] Last Admin: 09/19/17 10:17 Dose: 1 mg Hydralazine HCl (Apresoline) 10 mg IVP Q6 PRN PRN Reason: BP> 180 Last Admin: 09/18/17 11:16 Dose: 10 mg Levetiracetam 1,000 mg/ Sodium (Chloride) 110 mls @ 460 mls/hr IV Q12 [facility] Last Admin: 09/19/17 10:14 Dose: 460 mls/hr Propofol (Diprivan) 1,000 mg in 100 mls @ 2.062 mls/hr IV .Q24H PRN; Protocol; 5 MCG/KG/MIN PRN Reason: TITRATE PER MD ORDER Last Admin: 09/19/17 08:39 Dose: 40 mcg/kg/min, 16.493 mls/hr Metronidazole (Flagyl) 500 mg in 100 mls @ 100 mls/hr IVPB Q8 [facility] PRN Reason: Protocol Last Admin: 09/19/17 13:12 Dose: 100 mls/hr Meropenem 500 mg/ Sodium (Chloride) 100 mls @ 100 mls/hr IVPB Q12 [facility] PRN Reason: Protocol Stop: 09/24/17 10:16 Last Admin: 09/19/17 13:53 Dose: 100 mls/hr Potassium Phosphate 15 mmole/ (Sodium Chloride) 255 mls @ 42.5 mls/hr IVPB ONCE ONE Stop: 09/19/17 16:36 Last Admin: 09/19/17 13:53 Dose: 42.5 mls/hr Insulin Detemir (Levemir) 15 unit SC HS [facility] Last Admin: 09/18/17 22:15 Dose: 15 unit Insulin Human Lispro (Humalog High) 0 units SC Q6H [facility] PRN Reason: Protocol Last Admin: 09/19/17 13:52 Dose: 7 units Levalbuterol HCl (Xopenex) 0.63 mg IH [id number] [facility] Last Admin: 09/19/17 14:08 Dose: 0.63 mg Lorazepam (Ativan) 2 mg IVP Q3H PRN; Protocol PRN Reason: Agitation Last Admin: 09/14/17 10:15 Dose: 2 mg Multivitamins/Vitamin C (Multi-Delyn Liquid) 15 ml PO 0800 [facility] Last Admin: 09/19/17 10:16 Dose: 15 ml Pantoprazole Sodium (Protonix Inj) 40 mg IVP Q12 [facility] Last Admin: 09/19/17 10:10 Dose: 40 mg Thiamine HCl (Vitamin B1 Inj) 100 mg IV DAILY [facility] Last Admin: 09/19/17 10:10 Dose: 100 mg Tobramycin/Dexamethasone (Tobradex Opht Susp) 0 ml OU QID [facility] Last Admin: 09/19/17 13:54 Dose: 1 drop Vancomycin HCl (Vancocin 25 Mg/Ml (Oral Use)) 500 mg PO Q6 [facility] PRN Reason: Protocol Last Admin: 09/19/17 11:50 Dose: 500 mg Vitamin A (Vitamin A & D Oint Ud Foilpak) 1 ea TOP Q8 PRN PRN Reason: Dry skin Last Admin: 09/17/17 18:41 Dose: 1 ea - Labs Labs: 09/19/17 09:30 09/19/17 09:30 PT 14.2 SECONDS (9.4-12.5) H 09/17/17 05:45 INR 1.23 (0.93-1.08) H 09/17/17 05:45 APTT 32.4 Seconds (25.1-36.5) 09/17/17 05:45 Attending/Attestation - Attestation I have personally seen and examined this patient.: Yes I have fully participated in the care of the patient.: Yes I have reviewed all pertinent clinical information, including history, physical exam and plan: Yes Notes (Text): 09/19/17 15:57 Attending note; Patient seen and examined with resident in ICU this morning. Patient is a 47 year male with history of alcohol abuse, type 2 diabetes who came initially for abdominal pain and dyspnea. He was found to be severely acidotic and was diagnosed with alcoholic pancreatitis. Patient is post cardiac arrest. Currently intubated. He is on sedation and off pressors. Still with Leukocytosis. on meropenem. ID evaluation appreciated. Blood and urine culture negative. Tracheostomy culture is positive for Escherichia coli. C. difficile colitis: Continue PO vancomycin and Iv flagyl. Diarrhea slowly improving. acute kidney injury due to SIRS vs ATN/oliguric renal failure ;Currently getting hemodialysis. Case discussed with nephrology in detail. Has a right femoral dialysis catheter. Urine output is slowly increasing. Monitor ins and outs and creatinine level. Continue seizure precautions, keppra, thiamine, folate and MVI.Neurology evaluation appreciated. Monitor neurological status after sedation is weaned off. Elevated LFT due to shock liver/alcohol abuse. IMproved. anemia and thrombocytopenia due to alcohol induced BM suppression vs sepsis; improved significantly. Case discussed with surgery Dr. Pablo in detail. Plan for trach and PEG / dialysis catheter placement today. Case discussed with psychiatric social worker for LTAC placement. Overall prognosis is poor. 09/19/17 15:59
[2017-09-19] MEDS: Propofol 10 mg/ml 1,000 MG/100 ML VIAL IV PRN (08:39)
--- NOTE | 2017-09-19 09:03 | PN ---
DATE: 09/18/2017 Patient is seen, planning a tracheostomy and a gastrostomy. Discussed with Dr. Fernandez. We will plan to do it as a joint effort, possibly place a dialysis catheter at the same time. Jasen Pablo MD
[2017-09-19 10:03] LABS: BASO # 0.09 K/mm3 (0.0-2.0); BASO % 0.4 % (0.0-3.0); EOS % 0.1 % (1.5-5.0); GRAN # 16.98 (1.4-6.5); GRAN % 79.9 % (50.0-68.0); LYMPH # 2.2 (1.2-3.4); LYMPH % 10.2 % (22.0-35.0); MEAN CELL VOLUME 93.2 fl (80.0-105.0); MEAN CORPUSCULAR HEMOGLOBIN 30.4 pg (25.0-35.0); MEAN CORPUSCULAR HGB CONC 32.6 g/dl (31.0-37.0); MEAN PLATELET VOLUME 11.9 fl (7.0-11.0); MONO % 9.4 % (1.0-6.0); RBC 2.96 10^6/uL (3.5-6.1); RED CELL DISTRIBUTION WIDTH 17.7 % (11.5-14.5); WHITE BLOOD COUNT 21.3 10^3/ul (4.5-11.0)
--- NOTE | 2017-09-19 10:04 | PN ---
DATE: 09/19/2017 CARDIOLOGY FOLLOWUP SUBJECTIVE: The patient is scheduled for tracheostomy and possible PEG today. Seen prior, the patient is status post cardiac arrest. Currently, the patient remains hemodynamically stable on dialysis without pressors. There have been issues related to anoxic encephalopathy as well as renal insufficiency. PHYSICAL EXAMINATION GENERAL: The patient is sedated on a ventilator. VITAL SIGNS: Blood pressure is 112/80, the heart rates in the 90s. NECK: Negative JVD. LUNGS: Bilateral rhonchi. HEART: Reveals S1, S2. EXTREMITIES: Without edema. LABORATORY DATA: BUN and creatinine is 42 and 2.5 with a potassium of 4.2, hemoglobin is 10.2. IMPRESSION AND PLAN: 1. Respiratory failure. 2. Status post cardiopulmonary arrest. 3. Renal insufficiency. 4. Mild pulmonary hypertension. 5. Normal left ventricular function on echocardiogram. Given these findings, the patient is in a stable hemodynamic state. The patient at its optimum for his planned tracheostomy today. Grant Delgado MD
--- NOTE | 2017-09-19 10:06 | RAD ---
HISTORY: intubated on vent COMPARISON: 09/18/2017 FINDINGS: LUNGS: No active pulmonary disease. PLEURA: No significant pleural effusion identified, no pneumothorax apparent. CARDIOVASCULAR: Normal. OSSEOUS STRUCTURES: No significant abnormalities. VISUALIZED UPPER ABDOMEN: Normal. OTHER FINDINGS: The endotracheal and nasogastric tube are in satisfactory position. There is a right internal jugular line in the upper SVC IMPRESSION: No active disease.
[2017-09-19] MEDS: Thiamine 100 mg/ml Inj IV SCH (10:10)
--- NOTE | 2017-09-19 10:12 | CP.PCM.PN ---
Subjective - Date & Time of Evaluation Date of Evaluation: 09/19/17 Time of Evaluation: 09:40 - Subjective Subjective: Patient continues to be on the ventilator, sedated, no fevers, still with loose stools, with mix of watery diarrhea and solid stool. Objective - Vital Signs/Intake and Output Vital Signs (last 24 hours): Temp Pulse Resp BP Pulse Ox 99.0 F 93 H 27 H 112/79 99 09/19/17 06:30 09/19/17 06:30 09/18/17 17:00 09/19/17 06:30 09/19/17 06:30 Intake and Output: 09/19/17 09/19/17 06:59 18:59 Intake Total 1080 Output Total 1060 Balance 20 - Medications Medications: Current Medications Artificial Tears (Refresh Opth Soln) 0.3 ml OU Q12 PRN PRN Reason: Dry eyes Last Admin: 09/17/17 21:43 Dose: 0.3 ml Budesonide (Pulmicort Respules) 0.5 mg IH [id number] [facility] Last Admin: 09/19/17 07:58 Dose: 0.5 mg Clonidine HCl (Catapres Tts1 0.1 Mg/24 Hr) 1 patch TD Q7D@1000 [facility] Last Admin: 09/15/17 14:50 Dose: 1 patch Folic Acid (Folic Acid) 1 mg NG DAILY [facility] Last Admin: 09/18/17 10:43 Dose: 1 mg Hydralazine HCl (Apresoline) 10 mg IVP Q6 PRN PRN Reason: BP> 180 Last Admin: 09/18/17 11:16 Dose: 10 mg Levetiracetam 1,000 mg/ Sodium (Chloride) 110 mls @ 460 mls/hr IV Q12 [facility] Last Admin: 09/18/17 22:14 Dose: 460 mls/hr Propofol (Diprivan) 1,000 mg in 100 mls @ 2.062 mls/hr IV .Q24H PRN; Protocol; 5 MCG/KG/MIN PRN Reason: TITRATE PER MD ORDER Last Admin: 09/18/17 22:13 Dose: 40 mcg/kg/min, 16.493 mls/hr Metronidazole (Flagyl) 500 mg in 100 mls @ 100 mls/hr IVPB Q8 [facility] PRN Reason: Protocol Last Admin: 09/19/17 05:14 Dose: 100 mls/hr Meropenem 500 mg/ Sodium (Chloride) 100 mls @ 100 mls/hr IVPB Q12 [facility] PRN Reason: Protocol Stop: 09/24/17 10:16 Last Admin: 09/18/17 22:15 Dose: 100 mls/hr Insulin Detemir (Levemir) 15 unit SC HS [facility] Last Admin: 09/18/17 22:15 Dose: 15 unit Insulin Human Lispro (Humalog High) 0 units SC Q6H [facility] PRN Reason: Protocol Last Admin: 09/19/17 06:43 Dose: Not Given Levalbuterol HCl (Xopenex) 0.63 mg IH [id number] [facility] Last Admin: 09/19/17 07:59 Dose: 0.63 mg Lorazepam (Ativan) 2 mg IVP Q3H PRN; Protocol PRN Reason: Agitation Last Admin: 09/14/17 10:15 Dose: 2 mg Multivitamins/Vitamin C (Multi-Delyn Liquid) 15 ml PO 0800 [facility] Last Admin: 09/18/17 10:43 Dose: 15 ml Pantoprazole Sodium (Protonix Inj) 40 mg IVP Q12 [facility] Last Admin: 09/18/17 22:12 Dose: 40 mg Thiamine HCl (Vitamin B1 Inj) 100 mg IV DAILY [facility] Last Admin: 09/18/17 10:43 Dose: 100 mg Tobramycin/Dexamethasone (Tobradex Opht Susp) 0 ml OU QID [facility] Last Admin: 09/18/17 23:00 Dose: 1 drop Vancomycin HCl (Vancocin 25 Mg/Ml (Oral Use)) 500 mg PO Q6 [facility] PRN Reason: Protocol Last Admin: 09/19/17 05:14 Dose: 500 mg Vitamin A (Vitamin A & D Oint Ud Foilpak) 1 ea TOP Q8 PRN PRN Reason: Dry skin Last Admin: 09/17/17 18:41 Dose: 1 ea - Labs Labs: 09/18/17 05:30 09/18/17 05:30 PT 14.2 SECONDS (9.4-12.5) H 09/17/17 05:45 INR 1.23 (0.93-1.08) H 09/17/17 05:45 APTT 32.4 Seconds (25.1-36.5) 09/17/17 05:45 - Constitutional Appears: Chronically Ill, Other (intubated and sedated) - Head Exam Head Exam: NORMAL INSPECTION - ENT Exam Additional comments: ET tube in place - Respiratory Exam Respiratory Exam: Decreased Breath Sounds - Cardiovascular Exam Cardiovascular Exam: +S1, +S2 - GI/Abdominal Exam GI & Abdominal Exam: Soft. absent: Tenderness Assessment and Plan - Assessment and Plan (Free Text) Plan: Assessment new onset Systemic Inflammatory Reponse Syndrome on top of VDRF with severe sepsis with renal failure due to C. diff. associated diarrhea on top of acute alcoholic pancreatitis, R/O new onset sepsis with increasing leukocytosis, R/O HCAP Thrombocytopenia with alcoholic liver disease DM HTN Plan continue PO Vancomycin day 10 for 10-14 days and IV Flagyl since the patient continues to have diarrhea (slowly improving) repeat blood cx is negative, sputum cx is showing gram negative bacilli - continue Merrem (day 3) overall prognosis is poor
[2017-09-19] MEDS: levETIRAcetam 1,000 MG in Sodium Chloride 0.9% 100 ML IV SCH ×2 (10:14→21:58)
[2017-09-19 10:15] LABS: ALB/GLOB RATIO 0.7 (1.1-1.8); ALBUMIN 2.9 g/dL (3.0-4.8); ALT/SGPT 42 U/L (7-56); AST/SGOT 38 U/L (17-59); BLOOD UREA NITROGEN 20 mg/dL (7-21); CALCIUM 9.1 mg/dL (8.4-10.5); GFR AFRICAN-AMERICAN > 60; GFR NON-AFRICAN AMERICAN 54; MAGNESIUM 1.6 mg/dL (1.7-2.2)
[2017-09-19] MEDS: Multi Vitamins 15 mL UD Oral Solution PO SCH (10:16)
--- NOTE | 2017-09-19 10:17 | CP.PCM.PN ---
Subjective - Date & Time of Evaluation Date of Evaluation: 09/19/17 Time of Evaluation: 10:15 - Subjective Subjective: renal follow up note Assessment: critical Acute Kidney Injury (N17.9) likely due to pre-renal state, SIRS, Acute tubular necrosis Hyponatermia, hypokalemia DM, HTN, chronic alcoholism, hepatic dysfunction acute pancreatitis with hyperglycemia HAGMA with lactic acidosis + alcohol ketoacidosis and starvation ketoacidosis Thrombocytopenia Hypomagnesemia, hypophosphatemia s/p cardiac arrest, seizure ARDS Plan seen on HD , bp mildld depressed during treatment and UF reduced uop was improved overnight, perhaps showing signs of renal improvement will continue to monitor for possible improvement in renal function for permacath today no labs today yet anemia stable monitor phos levels discussed w/ ICU Staff S: seen and examined remains intubated Physical Examination: General Appearance: ill appearing. on vent Vitals reviewed and noted as below Head; Atraumatic, normocephalic ENT: intubated Neck; supple Lungs: Increased respiratory rate/effort. mechanical bs Heart: Increased rate. s1s2 normal. No rub or gallop. Extremities: 1+ edema. No varicose veins Neurological: Patient is sedated Skin: Warm and dry. Abdomen: Abdomen is soft. Bowel sounds decreased has rectal tube Psych: unable to assess MSK: no joint tenderness Objective - Vital Signs/Intake and Output Vital Signs (last 24 hours): Temp Pulse Resp BP Pulse Ox 98.6 F 96 H 94 H 102/63 100 09/19/17 08:30 09/19/17 08:30 09/19/17 08:00 09/19/17 08:30 09/19/17 08:30 Intake and Output: 09/19/17 09/19/17 06:59 18:59 Intake Total 1180 Output Total 1060 Balance 120 - Medications Medications: Current Medications Artificial Tears (Refresh Opth Soln) 0.3 ml OU Q12 PRN PRN Reason: Dry eyes Last Admin: 09/17/17 21:43 Dose: 0.3 ml Budesonide (Pulmicort Respules) 0.5 mg IH [id number] [facility] Last Admin: 09/19/17 07:58 Dose: 0.5 mg Clonidine HCl (Catapres Tts1 0.1 Mg/24 Hr) 1 patch TD Q7D@1000 [facility] Last Admin: 09/15/17 14:50 Dose: 1 patch Folic Acid (Folic Acid) 1 mg NG DAILY [facility] Last Admin: 09/18/17 10:43 Dose: 1 mg Hydralazine HCl (Apresoline) 10 mg IVP Q6 PRN PRN Reason: BP> 180 Last Admin: 09/18/17 11:16 Dose: 10 mg Levetiracetam 1,000 mg/ Sodium (Chloride) 110 mls @ 460 mls/hr IV Q12 [facility] Last Admin: 09/18/17 22:14 Dose: 460 mls/hr Propofol (Diprivan) 1,000 mg in 100 mls @ 2.062 mls/hr IV .Q24H PRN; Protocol; 5 MCG/KG/MIN PRN Reason: TITRATE PER MD ORDER Last Admin: 09/19/17 08:39 Dose: 40 mcg/kg/min, 16.493 mls/hr Metronidazole (Flagyl) 500 mg in 100 mls @ 100 mls/hr IVPB Q8 [facility] PRN Reason: Protocol Last Admin: 09/19/17 05:14 Dose: 100 mls/hr Meropenem 500 mg/ Sodium (Chloride) 100 mls @ 100 mls/hr IVPB Q12 [facility] PRN Reason: Protocol Stop: 09/24/17 10:16 Last Admin: 09/18/17 22:15 Dose: 100 mls/hr Insulin Detemir (Levemir) 15 unit SC HS [facility] Last Admin: 09/18/17 22:15 Dose: 15 unit Insulin Human Lispro (Humalog High) 0 units SC Q6H [facility] PRN Reason: Protocol Last Admin: 09/19/17 06:43 Dose: Not Given Levalbuterol HCl (Xopenex) 0.63 mg IH [id number] [facility] Last Admin: 09/19/17 07:59 Dose: 0.63 mg Lorazepam (Ativan) 2 mg IVP Q3H PRN; Protocol PRN Reason: Agitation Last Admin: 09/14/17 10:15 Dose: 2 mg Multivitamins/Vitamin C (Multi-Delyn Liquid) 15 ml PO 0800 [facility] Last Admin: 09/18/17 10:43 Dose: 15 ml Pantoprazole Sodium (Protonix Inj) 40 mg IVP Q12 [facility] Last Admin: 09/18/17 22:12 Dose: 40 mg Thiamine HCl (Vitamin B1 Inj) 100 mg IV DAILY [facility] Last Admin: 09/18/17 10:43 Dose: 100 mg Tobramycin/Dexamethasone (Tobradex Opht Susp) 0 ml OU QID [facility] Last Admin: 09/18/17 23:00 Dose: 1 drop Vancomycin HCl (Vancocin 25 Mg/Ml (Oral Use)) 500 mg PO Q6 [facility] PRN Reason: Protocol Last Admin: 09/19/17 05:14 Dose: 500 mg Vitamin A (Vitamin A & D Oint Ud Foilpak) 1 ea TOP Q8 PRN PRN Reason: Dry skin Last Admin: 09/17/17 18:41 Dose: 1 ea - Labs Labs: 09/18/17 05:30 09/18/17 05:30 PT 14.2 SECONDS (9.4-12.5) H 09/17/17 05:45 INR 1.23 (0.93-1.08) H 09/17/17 05:45 APTT 32.4 Seconds (25.1-36.5) 09/17/17 05:45
[2017-09-19] MEDS ORDERED: Potassium Chloride 20 mEq/15 ml LIQ UD PO STA (10:21)
[2017-09-19] MEDS ORDERED: Magnesium Sulfate 2 GM in Sodium Chloride 0.9% 100 ML IVPB ONE (10:36)
[2017-09-19] MEDS ORDERED: Potassium Phosphate 15 MMOLE in Sodium Chloride 0.9% 250 ML IVPB ONE (10:37)
[2017-09-19] MEDS: Tobramycin/Dexamethasone (Tobradex) Opth Sol (2.5 ml) OU SCH ×4 (10:45→22:27)
--- NOTE | 2017-09-19 13:32 | CP.PCM.PN ---
Subjective - Date & Time of Evaluation Date of Evaluation: 09/19/17 Time of Evaluation: 13:31 - Subjective Subjective: Mr. Aguero was seen and examined at the bedside. He remains on mechanical ventilator on PRVC mode. He remains responsive to tactile stimuli with GCS-4T. He remains on propofol drip for sedation. He also has left wrist restraint for patient safety. He remains with bilateral lower extremities SCD's. Patient is schedule for peg and trach in am.There was no untoward events overnight. Objective - Vital Signs/Intake and Output Vital Signs (last 24 hours): Temp Pulse Resp BP Pulse Ox 98.2 F 80 94 H 122/79 100 09/19/17 12:00 09/19/17 12:45 09/19/17 08:00 09/19/17 12:45 09/19/17 12:45 Intake and Output: 09/19/17 09/19/17 06:59 18:59 Intake Total 1180 Output Total 1060 Balance 120 - Medications Medications: Current Medications Artificial Tears (Refresh Opth Soln) 0.3 ml OU Q12 PRN PRN Reason: Dry eyes Last Admin: 09/17/17 21:43 Dose: 0.3 ml Budesonide (Pulmicort Respules) 0.5 mg IH [id number] [facility] Last Admin: 09/19/17 07:58 Dose: 0.5 mg Clonidine HCl (Catapres Tts1 0.1 Mg/24 Hr) 1 patch TD Q7D@1000 [facility] Last Admin: 09/15/17 14:50 Dose: 1 patch Folic Acid (Folic Acid) 1 mg NG DAILY [facility] Last Admin: 09/19/17 10:17 Dose: 1 mg Hydralazine HCl (Apresoline) 10 mg IVP Q6 PRN PRN Reason: BP> 180 Last Admin: 09/18/17 11:16 Dose: 10 mg Levetiracetam 1,000 mg/ Sodium (Chloride) 110 mls @ 460 mls/hr IV Q12 [facility] Last Admin: 09/19/17 10:14 Dose: 460 mls/hr Propofol (Diprivan) 1,000 mg in 100 mls @ 2.062 mls/hr IV .Q24H PRN; Protocol; 5 MCG/KG/MIN PRN Reason: TITRATE PER MD ORDER Last Admin: 09/19/17 08:39 Dose: 40 mcg/kg/min, 16.493 mls/hr Metronidazole (Flagyl) 500 mg in 100 mls @ 100 mls/hr IVPB Q8 [facility] PRN Reason: Protocol Last Admin: 09/19/17 13:12 Dose: 100 mls/hr Meropenem 500 mg/ Sodium (Chloride) 100 mls @ 100 mls/hr IVPB Q12 [facility] PRN Reason: Protocol Stop: 09/24/17 10:16 Last Admin: 09/18/17 22:15 Dose: 100 mls/hr Potassium Phosphate 15 mmole/ (Sodium Chloride) 255 mls @ 42.5 mls/hr IVPB ONCE ONE Stop: 09/19/17 16:36 Insulin Detemir (Levemir) 15 unit SC HS [facility] Last Admin: 09/18/17 22:15 Dose: 15 unit Insulin Human Lispro (Humalog High) 0 units SC Q6H [facility] PRN Reason: Protocol Last Admin: 09/19/17 06:43 Dose: Not Given Levalbuterol HCl (Xopenex) 0.63 mg IH [id number] [facility] Last Admin: 09/19/17 07:59 Dose: 0.63 mg Lorazepam (Ativan) 2 mg IVP Q3H PRN; Protocol PRN Reason: Agitation Last Admin: 09/14/17 10:15 Dose: 2 mg Multivitamins/Vitamin C (Multi-Delyn Liquid) 15 ml PO 0800 [facility] Last Admin: 09/19/17 10:16 Dose: 15 ml Pantoprazole Sodium (Protonix Inj) 40 mg IVP Q12 [facility] Last Admin: 09/19/17 10:10 Dose: 40 mg Thiamine HCl (Vitamin B1 Inj) 100 mg IV DAILY [facility] Last Admin: 09/19/17 10:10 Dose: 100 mg Tobramycin/Dexamethasone (Tobradex Opht Susp) 0 ml OU QID [facility] Last Admin: 09/18/17 23:00 Dose: 1 drop Vancomycin HCl (Vancocin 25 Mg/Ml (Oral Use)) 500 mg PO Q6 [facility] PRN Reason: Protocol Last Admin: 09/19/17 11:50 Dose: 500 mg Vitamin A (Vitamin A & D Oint Ud Foilpak) 1 ea TOP Q8 PRN PRN Reason: Dry skin Last Admin: 09/17/17 18:41 Dose: 1 ea - Labs Labs: 09/19/17 09:30 09/19/17 09:30 PT 14.2 SECONDS (9.4-12.5) H 09/17/17 05:45 INR 1.23 (0.93-1.08) H 09/17/17 05:45 APTT 32.4 Seconds (25.1-36.5) 09/17/17 05:45 - Constitutional Appears: No Acute Distress - Head Exam Head Exam: NORMAL INSPECTION - Neurological Exam Neuro motor strength exam: Left Upper Extremity: 0, Right Upper Extremity: 0, Left Lower Extremity: 0, Right Lower Extremity: 0 Additional comments: GCS-4T Assessment and Plan (1) Seizure Assessment & Plan: Case discussed with Dr. Remy, continue all current medical therapy. EEG result pending. Status: Acute
[2017-09-19] MEDS: Meropenem 500 MG in Sodium Chloride 0.9% 100 ML IVPB SCH ×2 (13:53→22:01)
[2017-09-19] MEDS ORDERED: Rocuronium 10 mg/ml (5 ml) ONE (16:52)
--- NOTE | 2017-09-19 16:56 | CP.PCM.CON ---
<Lisseth Garcia - Last Filed: 09/19/17 16:57> History of Present Illness - History of Present Illness History of Present Illness: Seen and examined at bedside in ICU, chart reviewed. Request for GI consult is for PEG tube. HPI: This is a 47 year old male with a PMH of DM, HTNwho is currently intubated on ventilator, no family present, history obtained from medical team and chart. Patient originally came in for cough and SOB, and palpitations. The patient also had history of drinking alcohol. During admission the patient had cardiac arrest, respiratory failure, with failed attempts to ween off ventilator and on dialysis for acute kidney injury. The patient is unable to take anything PO and request for PEG. Patient is going to a tracheostomy with surgery. The patient is reported to have diarrhea that is brown, no report of blood, is positive C. difficile on antibiotics. No reports of overt GI bleed. A review of record this patient had a CT scan of chest abdomen and pelvis, acute pancreatitis, hepatomegaly. Past medical history diabetes mellitus type 2, hypertension, EtOH Past surgical history unknown but no surgical scars are noted on abdomen Medications reviewed as per MAR Family history unknown Allergies no known drug allergies Social history: Positive for drinking alcohol no history noted for tobacco use or recreational drugs ROS: Patient is sedated and intubated unable to review, see HPI Past Patient History - Infectious Disease Hx of Infectious Diseases: None - Past Social History Smoking Status: Light Smoker < 10 Cigarettes Daily - CARDIAC Hx Hypertension: Yes - NEUROLOGICAL Hx Seizures: Yes - ENDOCRINE/METABOLIC Hx Diabetes Mellitus Type 2: Yes - INTEGUMENTARY Other/Comment: dry scaley hard skin to both feet toes, dry skin to legs, thick toenails both feet - MUSCULOSKELETAL/RHEUMATOLOGICAL Hx Falls: No - PSYCHIATRIC Hx Substance Use: No - SURGICAL HISTORY Hx Surgeries: No Meds Allergies/Adverse Reactions: Allergies Allergy/AdvReac Type Severity Reaction Status Date / Time No Known Allergies Allergy Verified 09/08/17 09:10 - Medications Medications: Current Medications Artificial Tears (Refresh Opth Soln) 0.3 ml OU Q12 PRN PRN Reason: Dry eyes Last Admin: 09/17/17 21:43 Dose: 0.3 ml Budesonide (Pulmicort Respules) 0.5 mg IH [id number] [facility] Last Admin: 09/19/17 07:58 Dose: 0.5 mg Clonidine HCl (Catapres Tts1 0.1 Mg/24 Hr) 1 patch TD Q7D@1000 [facility] Last Admin: 09/15/17 14:50 Dose: 1 patch Folic Acid (Folic Acid) 1 mg NG DAILY [facility] Last Admin: 09/19/17 10:17 Dose: 1 mg Hydralazine HCl (Apresoline) 10 mg IVP Q6 PRN PRN Reason: BP> 180 Last Admin: 09/18/17 11:16 Dose: 10 mg Levetiracetam 1,000 mg/ Sodium (Chloride) 110 mls @ 460 mls/hr IV Q12 [facility] Last Admin: 09/19/17 10:14 Dose: 460 mls/hr Propofol (Diprivan) 1,000 mg in 100 mls @ 2.062 mls/hr IV .Q24H PRN; Protocol; 5 MCG/KG/MIN PRN Reason: TITRATE PER MD ORDER Last Admin: 09/19/17 08:39 Dose: 40 mcg/kg/min, 16.493 mls/hr Metronidazole (Flagyl) 500 mg in 100 mls @ 100 mls/hr IVPB Q8 [facility] PRN Reason: Protocol Last Admin: 09/19/17 13:12 Dose: 100 mls/hr Meropenem 500 mg/ Sodium (Chloride) 100 mls @ 100 mls/hr IVPB Q12 [facility] PRN Reason: Protocol Stop: 09/24/17 10:16 Last Admin: 09/18/17 22:15 Dose: 100 mls/hr Potassium Phosphate 15 mmole/ (Sodium Chloride) 255 mls @ 42.5 mls/hr IVPB ONCE ONE Stop: 09/19/17 16:36 Insulin Detemir (Levemir) 15 unit SC [facility] Last Admin: 09/18/17 22:15 Dose: 15 unit Insulin Human Lispro (Humalog High) 0 units SC Q6H [facility] PRN Reason: Protocol Last Admin: 09/19/17 06:43 Dose: Not Given Levalbuterol HCl (Xopenex) 0.63 mg IH [id number] [facility] Last Admin: 09/19/17 07:59 Dose: 0.63 mg Lorazepam (Ativan) 2 mg IVP Q3H PRN; Protocol PRN Reason: Agitation Last Admin: 09/14/17 10:15 Dose: 2 mg Multivitamins/Vitamin C (Multi-Delyn Liquid) 15 ml PO 0800 [facility] Last Admin: 09/19/17 10:16 Dose: 15 ml Pantoprazole Sodium (Protonix Inj) 40 mg IVP Q12 [facility] Last Admin: 09/19/17 10:10 Dose: 40 mg Thiamine HCl (Vitamin B1 Inj) 100 mg IV DAILY [facility] Last Admin: 09/19/17 10:10 Dose: 100 mg Tobramycin/Dexamethasone (Tobradex Opht Susp) 0 ml OU QID [facility] Last Admin: 09/18/17 23:00 Dose: 1 drop Vancomycin HCl (Vancocin 25 Mg/Ml (Oral Use)) 500 mg PO Q6 [facility] PRN Reason: Protocol Last Admin: 09/19/17 11:50 Dose: 500 mg Vitamin A (Vitamin A & D Oint Ud Foilpak) 1 ea TOP Q8 PRN PRN Reason: Dry skin Last Admin: 09/17/17 18:41 Dose: 1 ea Physical Exam - Constitutional Appears: No Acute Distress Additional comments: intubated/sedated - Eye Exam Eye Exam: Normal appearance. absent: Scleral icterus - Neck Exam Neck exam: Positive for: Normal Inspection - Respiratory Exam Respiratory Exam: Decreased Breath Sounds, NORMAL BREATHING PATTERN. absent: Respiratory Distress - Cardiovascular Exam Cardiovascular Exam: +S1, +S2 - GI/Abdominal Exam GI & Abdominal Exam: Normal Bowel Sounds, Soft. absent: Guarding, Rebound, Tenderness - Extremities Exam Extremities exam: Positive for: pedal pulses present. Negative for: calf tenderness, pedal edema - Neurological Exam Neurological exam: Altered (intubated sedated) - Skin Skin Exam: Dry, Warm Results - Vital Signs Recent Vital Signs: Last Vital Signs Temp 98.2 F 09/19/17 12:00 Pulse 80 09/19/17 12:45 Resp 94 H 09/19/17 08:00 BP 122/79 09/19/17 12:45 Pulse Ox 100 09/19/17 12:45 - Labs Result Diagrams: 09/19/17 09:30 09/19/17 09:30 Labs: Laboratory Results - last 24 hr 09/18/1718 09/19/17 18:15 00:04 05:59 WBC RBC Hgb Hct MCV MCH MCHC RDW Plt Count MPV Gran % Lymph % (Auto) [place] % (Auto) Eos % (Auto) Baso % (Auto) Gran # Lymph # (Auto) [place] # (Auto) Eos # (Auto) Baso # (Auto) Sodium Potassium Chloride Carbon Dioxide Anion Gap BUN Creatinine Est GFR ( Amer) Est GFR (Non-Af Amer) POC Glucose (mg/dL) 398 H 365 H 331 H Random Glucose Calcium Phosphorus Magnesium Total Bilirubin AST ALT Alkaline Phosphatase Total Protein Albumin Globulin Albumin/Globulin Ratio 09/19/17 09/19/17 09/19/17 07:34 09:30 09:30 WBC 21.3 H RBC 2.96 L Hgb 9.0 L Hct 27.6 L MCV 93.2 MCH 30.4 MCHC 32.6 RDW 17.7 H Plt Count 135 MPV 11.9 H Gran % 79.9 H Lymph % (Auto) 10.2 L [place] % (Auto) 9.4 H Eos % (Auto) 0.1 L Baso % (Auto) 0.4 Gran # 16.98 H Lymph # (Auto) 2.2 [place] # (Auto) 2.0 H Eos # (Auto) 0.0 Baso # (Auto) 0.09 Sodium 141 Potassium 3.5 L Chloride 102 Carbon Dioxide 28 Anion Gap 14 BUN 20 Creatinine 1.4 Est GFR ( Amer) > 60 Est GFR (Non-Af Amer) 54 POC Glucose (mg/dL) 266 H Random Glucose 201 H Calcium 9.1 Phosphorus 2.3 L Magnesium 1.6 L Total Bilirubin 1.3 AST 38 ALT 42 Alkaline Phosphatase 319 H Total Protein 7.0 Albumin 2.9 L Globulin 4.1 Albumin/Globulin Ratio 0.7 L 09/19/17 12:55 WBC RBC Hgb Hct MCV MCH MCHC RDW Plt Count MPV Gran % Lymph % (Auto) [place] % (Auto) Eos % (Auto) Baso % (Auto) Gran # Lymph # (Auto) [place] # (Auto) Eos # (Auto) Baso # (Auto) Sodium Potassium Chloride Carbon Dioxide Anion Gap BUN Creatinine Est GFR ( Amer) Est GFR (Non-Af Amer) POC Glucose (mg/dL) 258 H Random Glucose Calcium Phosphorus Magnesium Total Bilirubin AST ALT Alkaline Phosphatase Total Protein Albumin Globulin Albumin/Globulin Ratio Assessment & Plan - Assessment and Plan (Free Text) Assessment: Assessment: Respiratory failure Status postcardiac arrest S/P Acute pancreatitis secondary to EtOH C. difficile colitis Elevated LFTs, which are showing a downward trend, multifactoral: medication induced,shock liver, ETOH(hepatitis panel negative) Seizure disorder Anemia Acute kidney injury Plan: Patient is planned for tracheostomy as per surgery, he will also have EGD/PEG tube insertion by our GI service. Monitor LFTs which are improving continue GI prophylaxis On IV antibiotics on oral Vancomycin monitor H/H, overt GI bleeding Monitor electrolytes Attempt to contact patient's Ingrid Aguero, , message left on voicemail to discuss EGD/PEG, consents noted on patient chart. Thank you for this consult and for allowing us to participate in your patient's care, further recommendations based upon clinical course. Seen and discussed with Dr. Thronton <Yogi Fernandez V - Last Filed: 09/19/17 23:33> Meds - Medications Medications: Current Medications Artificial Tears (Refresh Opth Soln) 0.3 ml OU Q12 PRN PRN Reason: Dry eyes Last Admin: 09/17/17 21:43 Dose: 0.3 ml Budesonide (Pulmicort Respules) 0.5 mg IH [id number] [facility] Last Admin: 09/19/17 20:29 Dose: 0.5 mg Clonidine HCl (Catapres Tts1 0.1 Mg/24 Hr) 1 patch TD Q7D@1000 [facility] Last Admin: 09/15/17 14:50 Dose: 1 patch Folic Acid (Folic Acid) 1 mg NG DAILY [facility] Last Admin: 09/19/17 10:17 Dose: 1 mg Hydralazine HCl (Apresoline) 10 mg IVP Q6 PRN PRN Reason: BP> 180 Last Admin: 09/19/17 18:35 Dose: 10 mg Levetiracetam 1,000 mg/ Sodium (Chloride) 110 mls @ 460 mls/hr IV Q12 [facility] Last Admin: 09/19/17 21:58 Dose: 460 mls/hr Propofol (Diprivan) 1,000 mg in 100 mls @ 2.062 mls/hr IV .Q24H PRN; Protocol; 5 MCG/KG/MIN PRN Reason: TITRATE PER MD ORDER Last Titration: 09/19/17 21:58 Dose: 30 mcg/kg/min, 12.369 mls/hr Metronidazole (Flagyl) 500 mg in 100 mls @ 100 mls/hr IVPB Q8 [facility] PRN Reason: Protocol Last Admin: 09/19/17 21:57 Dose: 100 mls/hr Meropenem 500 mg/ Sodium (Chloride) 100 mls @ 100 mls/hr IVPB Q12 [facility] PRN Reason: Protocol Stop: 09/24/17 10:16 Last Admin: 09/19/17 22:01 Dose: 100 mls/hr Insulin Detemir (Levemir) 15 unit SC HS [facility] Last Admin: 09/19/17 22:23 Dose: 15 unit Insulin Human Lispro (Humalog High) 0 units SC Q6H [facility] PRN Reason: Protocol Last Admin: 09/19/17 18:33 Dose: 2 units Levalbuterol HCl (Xopenex) 0.63 mg IH [id number] [facility] Last Admin: 09/19/17 20:35 Dose: 0.63 mg Lorazepam (Ativan) 2 mg IVP Q3H PRN; Protocol PRN Reason: Agitation Last Admin: 09/14/17 10:15 Dose: 2 mg Multivitamins/Vitamin C (Multi-Delyn Liquid) 15 ml PO 0800 [facility] Last Admin: 09/19/17 10:16 Dose: 15 ml Pantoprazole Sodium (Protonix Inj) 40 mg IVP Q12 [facility] Last Admin: 09/19/17 21:59 Dose: 40 mg Thiamine HCl (Vitamin B1 Inj) 100 mg IV DAILY [facility] Last Admin: 09/19/17 10:10 Dose: 100 mg Tobramycin/Dexamethasone (Tobradex Opht Susp) 0 ml OU QID [facility] Last Admin: 09/19/17 22:27 Dose: 1 drop Vancomycin HCl (Vancocin 25 Mg/Ml (Oral Use)) 500 mg PO Q6 [facility] PRN Reason: Protocol Last Admin: 09/19/17 18:26 Dose: Not Given Vitamin A (Vitamin A & D Oint Ud Foilpak) 1 ea TOP Q8 PRN PRN Reason: Dry skin Last Admin: 09/17/17 18:41 Dose: 1 ea Results - Vital Signs Recent Vital Signs: Last Vital Signs Temp 98.1 F 09/19/17 18:00 Pulse 105 H 09/19/17 21:14 Resp 18 02/07/18 18:00 BP 114/75 09/19/17 21:15 Pulse Ox 100 09/19/17 21:14 - Labs Result Diagrams: 09/19/17 09:30 09/19/17 09:30 Labs: Laboratory Results - last 24 hr 09/19/17 09/19/17 09/19/17 00:04 05:59 07:34 WBC RBC Hgb Hct MCV MCH MCHC RDW Plt Count MPV Gran % Lymph % (Auto) [place] % (Auto) Eos % (Auto) Baso % (Auto) Gran # Lymph # (Auto) [place] # (Auto) Eos # (Auto) Baso # (Auto) Sodium Potassium Chloride Carbon Dioxide Anion Gap BUN Creatinine Est GFR ( Amer) Est GFR (Non-Af Amer) POC Glucose (mg/dL) 365 H 331 H 266 H Random Glucose Calcium Phosphorus Magnesium Total Bilirubin AST ALT Alkaline Phosphatase Total Protein Albumin Globulin Albumin/Globulin Ratio 09/19/17 09/19/17 09/19/17 09:30 09:30 12:55 WBC 21.3 H RBC 2.96 L Hgb 9.0 L Hct 27.6 L MCV 93.2 MCH 30.4 MCHC 32.6 RDW 17.7 H Plt Count 135 MPV 11.9 H Gran % 79.9 H Lymph % (Auto) 10.2 L [place] % (Auto) 9.4 H Eos % (Auto) 0.1 L Baso % (Auto) 0.4 Gran # 16.98 H Lymph # (Auto) 2.2 [place] # (Auto) 2.0 H Eos # (Auto) 0.0 Baso # (Auto) 0.09 Sodium 141 Potassium 3.5 L Chloride 102 Carbon Dioxide 28 Anion Gap 14 BUN 20 Creatinine 1.4 Est GFR ( Amer) > 60 Est GFR (Non-Af Amer) 54 POC Glucose (mg/dL) 258 H Random Glucose 201 H Calcium 9.1 Phosphorus 2.3 L Magnesium 1.6 L Total Bilirubin 1.3 AST 38 ALT 42 Alkaline Phosphatase 319 H Total Protein 7.0 Albumin 2.9 L Globulin 4.1 Albumin/Globulin Ratio 0.7 L 09/19/17 09/19/17 18:31 21:14 WBC RBC Hgb Hct MCV MCH MCHC RDW Plt Count MPV Gran % Lymph % (Auto) [place] % (Auto) Eos % (Auto) Baso % (Auto) Gran # Lymph # (Auto) [place] # (Auto) Eos # (Auto) Baso # (Auto) Sodium Potassium Chloride Carbon Dioxide Anion Gap BUN Creatinine Est GFR ( Amer) Est GFR (Non-Af Amer) POC Glucose (mg/dL) 180 H 211 H Random Glucose Calcium Phosphorus Magnesium Total Bilirubin AST ALT Alkaline Phosphatase Total Protein Albumin Globulin Albumin/Globulin Ratio Attending/Attestation - Attestation I have personally seen and examined this patient.: Yes I have fully participated in the care of the patient.: Yes I have reviewed all pertinent clinical information: Yes Notes (Text): This is an addendum to GI consult report dictated by Lisseth Garcia APN.The patient was seen and examined earlier. Medical records, lab studies, imagings were reviewed. Last 24 hours events reviewed. Agreed with the above treatment plan as outlined in Lisseth Garcia APN's notes the with the addition of the following this patient was seen and evaluated earlier. Discussed with the patient's Instruments underwent Abdomen soft no scars no tenderness Scheduled for EGD and PEG tube placement Discussed with the surgical team for coordinating tracheostomy at the same time 09/19/17 23:10
[2017-09-19] MEDS ORDERED: Bupivacaine 0.5% Inj(30mL) IJ ONE (17:10)
--- NOTE | 2017-09-19 18:02 | PCM.SURG1 ---
Surgeon's Initial Post Op Note - Surgeon's Notes Surgeon: Dr. Jasen Pablo [employer] Director: Noni Pratt, PGY3; Nimo Underwood, PGY2 Type of Anesthesia: General Endo Pre-Operative Diagnosis: 1. Respiratory failure with dependence on mechanical ventilation. 2. Dysphagia Operative Findings: Normal gastric anatomy. Thyroid isthmus overlying the 2nd and 3rd tracheal ring interspace Post-Operative Diagnosis: same Operation Performed: Open tracheostomy tube placement. Open tio gastrostomy tube placement Specimen/Specimens Removed: none Estimated Blood Loss: EBL {In ML}: 5 Blood Products Given: N/A Drains Used: Ostomy Device (8french non-fenestrated, cuffed tracheostomy tube. 24 gastrostomy tube) Date of Surgery/Procedure: 09/19/17 Time of Surgery/Procedure: 16:00
[2017-09-19] MEDS: Insulin Detemir 100 units/ml Vial (Levemir) SC SCH (22:23)
[2017-09-20] MEDS: Insulin Lispro (HUMAlog) HIGH Coverage SC SCH ×3 (00:40→18:58)
[2017-09-20] MEDS: Propofol 10 mg/ml 1,000 MG/100 ML VIAL IV PRN ×2 (00:49→19:08)
[2017-09-20] MEDS: Vancomycin 25 MG/ML PO SCH ×4 (00:50→17:26)
[2017-09-20] MEDS: Levalbuterol 0.63 MG/3 ML Inhal Soln UD IH SCH ×4 (01:42→21:02)
[2017-09-20] MEDS: metroNIDAZOLE IV 500 mg/100 ml 500 MG/100 ML BAG IVPB SCH ×2 (05:28→13:03)
[2017-09-20 06:53] LABS: BASO # 0.04 K/mm3 (0.0-2.0); BASO % 0.2 % (0.0-3.0); EOS % 0.1 % (1.5-5.0); GRAN # 13.77 (1.4-6.5); GRAN % 81.3 % (50.0-68.0); LYMPH # 1.9 (1.2-3.4); LYMPH % 11.3 % (22.0-35.0); MEAN CELL VOLUME 95.5 fl (80.0-105.0); MEAN CORPUSCULAR HEMOGLOBIN 30.8 pg (25.0-35.0); MEAN CORPUSCULAR HGB CONC 32.2 g/dl (31.0-37.0); MEAN PLATELET VOLUME 11.4 fl (7.0-11.0); MONO # 1.2 (0.1-0.6); MONO % 7.1 % (1.0-6.0); RBC 2.47 10^6/uL (3.5-6.1); RED CELL DISTRIBUTION WIDTH 17.5 % (11.5-14.5); WHITE BLOOD COUNT 16.9 10^3/ul (4.5-11.0)
[2017-09-20 07:02] LABS: HEMOGLOBIN 7.6 g/dL (14.0-18.0)
[2017-09-20 07:16] LABS: ALB/GLOB RATIO 0.7 (1.1-1.8); ALBUMIN 2.4 g/dL (3.0-4.8); CALCIUM 8.3 mg/dL (8.4-10.5); MAGNESIUM 1.7 mg/dL (1.7-2.2)
[2017-09-20 07:19] LABS: INR 1.26 (0.93-1.08); PROTHROMBIN TIME 14.5 SECONDS (9.4-12.5)
--- NOTE | 2017-09-20 08:17 | CP.PCM.PN ---
Subjective - Date & Time of Evaluation Date of Evaluation: 09/20/17 Time of Evaluation: 07:50 - Subjective Subjective: General Surgery Progress Note for Dr. Pablo Patient seen and examined at bedside in the ICU. Patient is awake, eyes open, and off sedation currently. Patient moves right arm . Nurse reports no events overnight. 12 point ROS unobtainable. Objective - Vital Signs/Intake and Output Vital Signs (last 24 hours): Temp Pulse Resp BP Pulse Ox 98.8 F 82 18 101/60 99 09/20/17 04:00 09/20/17 06:01 09/20/17 06:01 09/20/17 06:00 09/20/17 06:01 Intake and Output: 09/20/17 09/20/17 06:59 18:59 Intake Total 1344 Output Total 550 Balance 794 - Medications Medications: Current Medications Artificial Tears (Refresh Opth Soln) 0.3 ml OU Q12 PRN PRN Reason: Dry eyes Last Admin: 09/17/17 21:43 Dose: 0.3 ml Budesonide (Pulmicort Respules) 0.5 mg IH [id number] [facility] Last Admin: 09/19/17 20:29 Dose: 0.5 mg Clonidine HCl (Catapres Tts1 0.1 Mg/24 Hr) 1 patch TD Q7D@1000 [facility] Last Admin: 09/15/17 14:50 Dose: 1 patch Folic Acid (Folic Acid) 1 mg NG DAILY [facility] Last Admin: 09/19/17 10:17 Dose: 1 mg Hydralazine HCl (Apresoline) 10 mg IVP Q6 PRN PRN Reason: BP> 180 Last Admin: 09/19/17 18:35 Dose: 10 mg Levetiracetam 1,000 mg/ Sodium (Chloride) 110 mls @ 460 mls/hr IV Q12 [facility] Last Admin: 09/19/17 21:58 Dose: 460 mls/hr Propofol (Diprivan) 1,000 mg in 100 mls @ 2.062 mls/hr IV .Q24H PRN; Protocol; 5 MCG/KG/MIN PRN Reason: TITRATE PER MD ORDER Last Admin: 09/20/17 00:49 Dose: 30 mcg/kg/min, 12.369 mls/hr Metronidazole (Flagyl) 500 mg in 100 mls @ 100 mls/hr IVPB Q8 [facility] PRN Reason: Protocol Last Admin: 09/20/17 05:28 Dose: 100 mls/hr Cefazolin Sodium (Ancef 1gm In Ns) 1 gm in 100 mls @ 100 mls/hr IVPB Q12 [facility] PRN Reason: Protocol Insulin Detemir (Levemir) 15 unit SC HS [facility] Last Admin: 09/19/17 22:23 Dose: 15 unit Insulin Human Lispro (Humalog High) 0 units SC Q6H [facility] PRN Reason: Protocol Last Admin: 09/20/17 00:40 Dose: Not Given Levalbuterol HCl (Xopenex) 0.63 mg IH [id number] [facility] Last Admin: 09/20/17 01:42 Dose: 0.63 mg Lorazepam (Ativan) 2 mg IVP Q3H PRN; Protocol PRN Reason: Agitation Last Admin: 09/14/17 10:15 Dose: 2 mg Multivitamins/Vitamin C (Multi-Delyn Liquid) 15 ml PO 0800 [facility] Last Admin: 09/19/17 10:16 Dose: 15 ml Pantoprazole Sodium (Protonix Inj) 40 mg IVP Q12 [facility] Last Admin: 09/19/17 21:59 Dose: 40 mg Thiamine HCl (Vitamin B1 Inj) 100 mg IV DAILY [facility] Last Admin: 09/19/17 10:10 Dose: 100 mg Tobramycin/Dexamethasone (Tobradex Opht Susp) 0 ml OU QID [facility] Last Admin: 09/19/17 22:27 Dose: 1 drop Vancomycin HCl (Vancocin 25 Mg/Ml (Oral Use)) 500 mg PO Q6 [facility] PRN Reason: Protocol Last Admin: 09/20/17 05:26 Dose: Not Given Vitamin A (Vitamin A & D Oint Ud Foilpak) 1 ea TOP Q8 PRN PRN Reason: Dry skin Last Admin: 09/17/17 18:41 Dose: 1 ea - Labs Labs: 09/20/17 06:00 09/20/17 06:00 PT 14.5 SECONDS (9.4-12.5) H 09/20/17 06:00 INR 1.26 (0.93-1.08) H 09/20/17 06:00 APTT 32.4 Seconds (25.1-36.5) 09/17/17 05:45 - Constitutional Appears: Non-toxic, No Acute Distress - Head Exam Head Exam: ATRAUMATIC, NORMOCEPHALIC - Eye Exam Eye Exam: EOMI - Neck Exam Additional comments: 8-Yakut non fenestrated, cuffed tracheostomy with dressing intact. - Respiratory Exam Respiratory Exam: NORMAL BREATHING PATTERN. absent: Accessory Muscle Use - Cardiovascular Exam Cardiovascular Exam: absent: Tachycardia - GI/Abdominal Exam GI & Abdominal Exam: Soft. absent: Guarding, Rebound Additional comments: Open Shereen gastromtomy placement in left upper quadrant present - Neurological Exam Neurological Exam: Awake Assessment and Plan - Assessment and Plan (Free Text) Assessment: 47 year old male who is POD #1 for open tracheostomy and open Shereen gastrostomy tube placement. Plan: - Initiate Glucerna 1.2 c tube feeds at 10 ml/hr, increase tube feeds by 10 ml/ hr each hour with a goal rate of 60 ml/hr. Check residual every 4 hours; if greater than 500 ml, then hold tube feeds. Flush every four hours with 100 ml of water. - Will remove tracheostomy dressing tomorrow, 09/21/17 - Will remove gastrostomy sutures on 09/29/17 (POD #10) - Continue with medical management Case discussed with attending, Dr. Pablo
[2017-09-20] MEDS: Budesonide 0.5 mg/2 ml Inhal Susp UD IH SCH ×2 (08:21→21:02)
--- NOTE | 2017-09-20 08:40 | RAD ---
HISTORY: intubated on vent COMPARISON: 09/19/2017 FINDINGS: LUNGS: Patchy opacity in right upper lobe. Possible early pneumonia. Followup advised. No other infiltrate elsewhere. PLEURA: No significant pleural effusion identified, no pneumothorax apparent. CARDIOVASCULAR: Tracheostomy tube and right IJ central venous multi lumen catheter are unchanged. Normal heart size. No congestive change. OSSEOUS STRUCTURES: No significant abnormalities. VISUALIZED UPPER ABDOMEN: Normal. OTHER FINDINGS: None. IMPRESSION: Patchy opacity right upper lobe. Possible early pneumonia. Followup advised.
--- NOTE | 2017-09-20 08:44 | RAD ---
HISTORY: s/p trach COMPARISON: 09/19/2017 FINDINGS: LUNGS: No active pulmonary disease. PLEURA: No significant pleural effusion identified, no pneumothorax apparent. CARDIOVASCULAR: Normal heart size. Tracheostomy tube. Right IJ central venous multi lumen catheter. Unchanged. OSSEOUS STRUCTURES: No significant abnormalities. VISUALIZED UPPER ABDOMEN: Normal. OTHER FINDINGS: None. IMPRESSION: No active disease.
--- NOTE | 2017-09-20 09:50 | CP.PCM.PN ---
Subjective - Date & Time of Evaluation Date of Evaluation: 09/20/17 Time of Evaluation: 09:35 - Subjective Subjective: Now with tracheostomy, more awake today, no fevers, not in distress, but still on the vent. Gastrostomy tube also placed yesterday. Objective - Vital Signs/Intake and Output Vital Signs (last 24 hours): Temp Pulse Resp BP Pulse Ox 98.8 F 82 18 101/60 99 09/20/17 04:00 09/20/17 06:01 09/20/17 06:01 09/20/17 06:00 09/20/17 06:01 Intake and Output: 09/19/17 09/20/17 18:59 06:59 Intake Total 250 1344 Output Total 525 550 Balance -275 794 - Medications Medications: Current Medications Artificial Tears (Refresh Opth Soln) 0.3 ml OU Q12 PRN PRN Reason: Dry eyes Last Admin: 09/17/17 21:43 Dose: 0.3 ml Budesonide (Pulmicort Respules) 0.5 mg IH [id number] [facility] Last Admin: 09/19/17 20:29 Dose: 0.5 mg Clonidine HCl (Catapres Tts1 0.1 Mg/24 Hr) 1 patch TD Q7D@1000 [facility] Last Admin: 09/15/17 14:50 Dose: 1 patch Folic Acid (Folic Acid) 1 mg NG DAILY [facility] Last Admin: 09/19/17 10:17 Dose: 1 mg Hydralazine HCl (Apresoline) 10 mg IVP Q6 PRN PRN Reason: BP> 180 Last Admin: 09/19/17 18:35 Dose: 10 mg Levetiracetam 1,000 mg/ Sodium (Chloride) 110 mls @ 460 mls/hr IV Q12 [facility] Last Admin: 09/19/17 21:58 Dose: 460 mls/hr Propofol (Diprivan) 1,000 mg in 100 mls @ 2.062 mls/hr IV .Q24H PRN; Protocol; 5 MCG/KG/MIN PRN Reason: TITRATE PER MD ORDER Last Admin: 09/20/17 00:49 Dose: 30 mcg/kg/min, 12.369 mls/hr Metronidazole (Flagyl) 500 mg in 100 mls @ 100 mls/hr IVPB Q8 [facility] PRN Reason: Protocol Last Admin: 09/20/17 05:28 Dose: 100 mls/hr Insulin Detemir (Levemir) 15 unit SC HS [facility] Last Admin: 09/19/17 22:23 Dose: 15 unit Insulin Human Lispro (Humalog High) 0 units SC Q6H [facility] PRN Reason: Protocol Last Admin: 09/20/17 00:40 Dose: Not Given Levalbuterol HCl (Xopenex) 0.63 mg IH [id number] [facility] Last Admin: 09/20/17 01:42 Dose: 0.63 mg Lorazepam (Ativan) 2 mg IVP Q3H PRN; Protocol PRN Reason: Agitation Last Admin: 09/14/17 10:15 Dose: 2 mg Multivitamins/Vitamin C (Multi-Delyn Liquid) 15 ml PO 0800 [facility] Last Admin: 09/19/17 10:16 Dose: 15 ml Pantoprazole Sodium (Protonix Inj) 40 mg IVP Q12 [facility] Last Admin: 09/19/17 21:59 Dose: 40 mg Thiamine HCl (Vitamin B1 Inj) 100 mg IV DAILY [facility] Last Admin: 09/19/17 10:10 Dose: 100 mg Tobramycin/Dexamethasone (Tobradex Opht Susp) 0 ml OU QID [facility] Last Admin: 09/19/17 22:27 Dose: 1 drop Vancomycin HCl (Vancocin 25 Mg/Ml (Oral Use)) 500 mg PO Q6 [facility] PRN Reason: Protocol Last Admin: 09/20/17 05:26 Dose: Not Given Vitamin A (Vitamin A & D Oint Ud Foilpak) 1 ea TOP Q8 PRN PRN Reason: Dry skin Last Admin: 09/17/17 18:41 Dose: 1 ea - Labs Labs: 09/19/17 09:30 09/19/17 09:30 PT 14.2 SECONDS (9.4-12.5) H 09/17/17 05:45 INR 1.23 (0.93-1.08) H 09/17/17 05:45 APTT 32.4 Seconds (25.1-36.5) 09/17/17 05:45 - Constitutional Appears: Chronically Ill, Other (on the vent) - Head Exam Head Exam: NORMAL INSPECTION - ENT Exam Additional comments: tracheostomy tube in place - Neck Exam Neck Exam: absent: Meningismus - Respiratory Exam Respiratory Exam: Decreased Breath Sounds - Cardiovascular Exam Cardiovascular Exam: +S1, +S2 - GI/Abdominal Exam GI & Abdominal Exam: Soft. absent: Tenderness Assessment and Plan - Assessment and Plan (Free Text) Plan: Assessment VDRF (now with tracheostomy) with severe sepsis with renal failure due to C. diff. associated diarrhea on top of acute alcoholic pancreatitis, with possible HCAP with E. coli in the sputum S/P gastrostomy tube placement Thrombocytopenia with alcoholic liver disease DM HTN Plan continue PO Vancomycin day 11 for 10-14 days and IV Flagyl since the patient continues to have diarrhea (slowly improving) repeat blood cx is negative, sputum cx is showing E. coli - switch Merrem to Cefazolin to complete 4-7 days (day 4 today) overall prognosis is poor
[2017-09-20] MEDS ORDERED: Darbepoetin Alfa 60 mcg/ml Inj SC ONE (11:38)
--- NOTE | 2017-09-20 12:32 | CP.PCM.PN ---
<Hailey Tubbs - Last Filed: 09/20/17 12:29> Subjective - Date & Time of Evaluation Date of Evaluation: 09/20/17 Time of Evaluation: 12:29 - Subjective Subjective: ICU Progress note for Светлана Carrizales PGY2 Patient seen and examined at bedside. There were no acute overnight events. Patient had trach and peg yesterday without complication. He is awake and alert , without sedation. He is following commands. ROS could not be obtained. Objective - Vital Signs/Intake and Output Vital Signs (last 24 hours): Temp Pulse Resp BP Pulse Ox 98.8 F 82 19 101/60 100 09/20/17 04:00 09/20/17 06:01 09/20/17 08:29 09/20/17 06:00 09/20/17 08:29 Intake and Output: 09/20/17 09/20/17 06:59 18:59 Intake Total 1344 Output Total 550 Balance 794 - Medications Medications: Current Medications Artificial Tears (Refresh Opth Soln) 0.3 ml OU Q12 PRN PRN Reason: Dry eyes Last Admin: 09/17/17 21:43 Dose: 0.3 ml Budesonide (Pulmicort Respules) 0.5 mg IH [id number] [facility] Last Admin: 09/20/17 08:21 Dose: 0.5 mg Clonidine HCl (Catapres Tts1 0.1 Mg/24 Hr) 1 patch TD Q7D@1000 [facility] Last Admin: 09/15/17 14:50 Dose: 1 patch Folic Acid (Folic Acid) 1 mg NG DAILY [facility] Last Admin: 09/19/17 10:17 Dose: 1 mg Hydralazine HCl (Apresoline) 10 mg IVP Q6 PRN PRN Reason: BP> 180 Last Admin: 09/19/17 18:35 Dose: 10 mg Levetiracetam 1,000 mg/ Sodium (Chloride) 110 mls @ 460 mls/hr IV Q12 [facility] Last Admin: 09/19/17 21:58 Dose: 460 mls/hr Propofol (Diprivan) 1,000 mg in 100 mls @ 2.062 mls/hr IV .Q24H PRN; Protocol; 5 MCG/KG/MIN PRN Reason: TITRATE PER MD ORDER Last Admin: 09/20/17 00:49 Dose: 30 mcg/kg/min, 12.369 mls/hr Metronidazole (Flagyl) 500 mg in 100 mls @ 100 mls/hr IVPB Q8 [facility] PRN Reason: Protocol Last Admin: 09/20/17 05:28 Dose: 100 mls/hr Cefazolin Sodium (Ancef 1gm In Ns) 1 gm in 100 mls @ 100 mls/hr IVPB Q12 [facility] PRN Reason: Protocol Insulin Detemir (Levemir) 15 unit SC HS [facility] Last Admin: 09/19/17 22:23 Dose: 15 unit Insulin Human Lispro (Humalog High) 0 units SC Q6H [facility] PRN Reason: Protocol Last Admin: 09/20/17 00:40 Dose: Not Given Levalbuterol HCl (Xopenex) 0.63 mg IH [id number] [facility] Last Admin: 09/20/17 08:21 Dose: 0.63 mg Lorazepam (Ativan) 2 mg IVP Q3H PRN; Protocol PRN Reason: Agitation Last Admin: 09/14/17 10:15 Dose: 2 mg Multivitamins/Vitamin C (Multi-Delyn Liquid) 15 ml PO 0800 [facility] Last Admin: 09/19/17 10:16 Dose: 15 ml Pantoprazole Sodium (Protonix Inj) 40 mg IVP Q12 [facility] Last Admin: 09/19/17 21:59 Dose: 40 mg Thiamine HCl (Vitamin B1 Inj) 100 mg IV DAILY [facility] Last Admin: 09/19/17 10:10 Dose: 100 mg Tobramycin/Dexamethasone (Tobradex Opht Susp) 0 ml OU QID [facility] Last Admin: 09/19/17 22:27 Dose: 1 drop Vancomycin HCl (Vancocin 25 Mg/Ml (Oral Use)) 500 mg PO Q6 [facility] PRN Reason: Protocol Last Admin: 09/20/17 05:26 Dose: Not Given Vitamin A (Vitamin A & D Oint Ud Foilpak) 1 ea TOP Q8 PRN PRN Reason: Dry skin Last Admin: 09/17/17 18:41 Dose: 1 ea - Labs Labs: 09/20/17 06:00 09/20/17 06:00 PT 14.5 SECONDS (9.4-12.5) H 09/20/17 06:00 INR 1.26 (0.93-1.08) H 09/20/17 06:00 APTT 32.4 Seconds (25.1-36.5) 09/17/17 05:45 - Constitutional Appears: No Acute Distress, Chronically Ill - Head Exam Head Exam: ATRAUMATIC, NORMAL INSPECTION, NORMOCEPHALIC - Eye Exam Eye Exam: Normal appearance, PERRL Pupil Exam: NORMAL ACCOMODATION, PERRL - ENT Exam ENT Exam: Mucous Membranes Moist Additional comments: trach in place- clean and dry - Neck Exam Neck Exam: Full ROM - Respiratory Exam Respiratory Exam: Clear to Ausculation Bilateral, NORMAL BREATHING PATTERN. absent: Rales, Rhonchi, Wheezes - Cardiovascular Exam Cardiovascular Exam: REGULAR RHYTHM, +S1, +S2. absent: Gallop, Rubs, Murmur - GI/Abdominal Exam GI & Abdominal Exam: Distended, Soft, Tenderness (at peg site ), Normal Bowel Sounds Additional comments: peg site clean and dry - Extremities Exam Extremities Exam: Pedal Edema. absent: Calf Tenderness - Neurological Exam Neurological Exam: Alert, Awake, CN II-XII Intact - Skin Skin Exam: Dry, Warm Assessment and Plan - Assessment and Plan (Free Text) Assessment: This is 47yo male with past medical history with DM, HTN, and EtOH abuse admitted for septic shock secondary to pancreatitis, aspiration pneumonia, IRWIN, seizures, thrombocytopenia (from EtOH), cardiac arrest s/p ROSC with resp failure. Patient is s/p trach and peg POD#1. Plan: Neuro: On Propofol, awake and alert-follows commands Keppra Head CT: no acute abnormalities EEG: no seizure activity Neuro consulted- recs appreciated Seizure precautions Maintain normothemia CV: Cardiac arrest s/p ROSC HD stable Maintain MAP >65 Echo: unremarkable Clonidine patch weekly, hydralazine prn Monitor I&O Cardio consulted- recs appreciated Pulm: s/p trach PRVC- will wean as tolerated will titrate to maintain SpO2>92% HOB elevated- asp precaution Protective lung ventilation strategy Pulm consulted- recs appreciated Xopenex, Pulmicort GI: s/p peg tube - will start feeds tomorrow Pancreatitis resolved and transaminitis resolved EGD showed esophageal ulcer Folic acid, multivitamin, thiamine Protonix q12 GI consulted- recs appreciated Surg consulted for feeding tube Heme: Anemia Hgb 7.6 Transfusion threshold is 7.0 Thrombocytopenia resolved Will continue to monitor H/H Nephro: Cr is improving No permacath placement- shiley removed no HD- pt has good urine output Maintain euvolemia Monitor Is and Os and Daily Weight Nephro consulted- recs appreciated ID: C Diff positive Afebrile, leukocytosis trending down ID consulted- recs appreciated Trach culture: E Coli Repeat blood and urine negative HIV, Strep, and legionella negative Vancocin PO, Flagyl q8, Ancef Endo: Hx of DM Pt on ISS high Levemir 15u sc hs Accucheck q6 Maintain euglycemia 140-180s GI ppx: Protonix 40mg ivp q12 DVT ppx: Heparin SC Diet: feeds will start tomorrow Dispo: Prognosis guarded. Palliative care consulted. Patient pending transfer to LTAC Case seen, discussed and reviewed with attending. Светлана Tubbs PGY2 <Hasmukh Miller - Last Filed: 09/20/17 18:38> Objective - Vital Signs/Intake and Output Vital Signs (last 24 hours): Temp Pulse Resp BP Pulse Ox 98.9 F 96 H 20 145/100 H 98 09/20/17 16:00 09/20/17 18:15 09/20/17 18:10 09/20/17 18:15 09/20/17 18:15 Intake and Output: 09/20/17 09/20/17 06:59 18:59 Intake Total 1344 200 Output Total 550 800 Balance 794 -600 - Medications Medications: Current Medications Artificial Tears (Refresh Opth Soln) 0.3 ml OU Q12 PRN PRN Reason: Dry eyes Last Admin: 09/17/17 21:43 Dose: 0.3 ml Budesonide (Pulmicort Respules) 0.5 mg IH [id number] [facility] Last Admin: 09/20/17 08:21 Dose: 0.5 mg Clonidine HCl (Catapres Tts1 0.1 Mg/24 Hr) 1 patch TD Q7D@1000 [facility] Last Admin: 09/15/17 14:50 Dose: 1 patch Folic Acid (Folic Acid) 1 mg NG DAILY [facility] Last Admin: 09/20/17 12:37 Dose: Not Given Heparin Sodium (Porcine) (Heparin) 5,000 units SC Q12 [facility] PRN Reason: Protocol Hydralazine HCl (Apresoline) 10 mg IVP Q6 PRN PRN Reason: BP> 180 Last Admin: 09/19/17 18:35 Dose: 10 mg Levetiracetam 1,000 mg/ Sodium (Chloride) 110 mls @ 460 mls/hr IV Q12 [facility] Last Admin: 09/20/17 12:37 Dose: 460 mls/hr Propofol (Diprivan) 1,000 mg in 100 mls @ 2.062 mls/hr IV .Q24H PRN; Protocol; 5 MCG/KG/MIN PRN Reason: TITRATE PER MD ORDER Last Admin: 09/20/17 00:49 Dose: 30 mcg/kg/min, 12.369 mls/hr Cefazolin Sodium (Ancef 1gm In Ns) 1 gm in 100 mls @ 100 mls/hr IVPB Q12 [facility] PRN Reason: Protocol Last Admin: 09/20/17 12:36 Dose: 100 mls/hr Insulin Detemir (Levemir) 15 unit SC HS [facility] Last Admin: 09/19/17 22:23 Dose: 15 unit Insulin Human Lispro (Humalog High) 0 units SC Q6H [facility] PRN Reason: Protocol Last Admin: 09/20/17 12:58 Dose: Not Given Levalbuterol HCl (Xopenex) 0.63 mg IH [id number] [facility] Last Admin: 09/20/17 13:29 Dose: 0.63 mg Lorazepam (Ativan) 2 mg IVP Q3H PRN; Protocol PRN Reason: Agitation Last Admin: 09/14/17 10:15 Dose: 2 mg Multivitamins/Vitamin C (Multi-Delyn Liquid) 15 ml PO 0800 [facility] Last Admin: 09/20/17 12:37 Dose: Not Given Pantoprazole Sodium (Protonix Inj) 40 mg IVP Q12 [facility] Last Admin: 09/20/17 12:37 Dose: 40 mg Thiamine HCl (Vitamin B1 Inj) 100 mg IV DAILY [facility] Last Admin: 09/20/17 12:38 Dose: 100 mg Tobramycin/Dexamethasone (Tobradex Opht Susp) 0 ml OU QID [facility] Last Admin: 09/20/17 17:26 Dose: 1 drop Vancomycin HCl (Vancocin 25 Mg/Ml (Oral Use)) 500 mg PO Q6 [facility] PRN Reason: Protocol Last Admin: 09/20/17 17:26 Dose: 500 mg Vitamin A (Vitamin A & D Oint Ud Foilpak) 1 ea TOP Q8 PRN PRN Reason: Dry skin Last Admin: 09/17/17 18:41 Dose: 1 ea - Labs Labs: 09/20/17 06:00 09/20/17 06:00 PT 14.5 SECONDS (9.4-12.5) H 09/20/17 06:00 INR 1.26 (0.93-1.08) H 09/20/17 06:00 APTT 32.4 Seconds (25.1-36.5) 09/17/17 05:45 Attending/Attestation - Attestation I have personally seen and examined this patient.: Yes I have fully participated in the care of the patient.: Yes I have reviewed all pertinent clinical information, including history, physical exam and plan: Yes Notes (Text): 09/20/17 18:[address] Miller's note 09/20/17 18:[address] Miller's note
[2017-09-20] MEDS: ceFAZolin 1 gm in NS 1 GM/100 ML BAG IVPB SCH ×2 (12:36→22:19)
[2017-09-20] MEDS: Tobramycin/Dexamethasone (Tobradex) Opth Sol (2.5 ml) OU SCH ×4 (12:37→22:29)
[2017-09-20] MEDS: levETIRAcetam 1,000 MG in Sodium Chloride 0.9% 100 ML IV SCH ×2 (12:37→22:20)
[2017-09-20] MEDS: Multi Vitamins 15 mL UD Oral Solution PO SCH (12:37)
[2017-09-20] MEDS: Thiamine 100 mg/ml Inj IV SCH (12:38)
--- NOTE | 2017-09-20 13:37 | CP.PCM.PN ---
Subjective - Date & Time of Evaluation Date of Evaluation: 09/20/17 Time of Evaluation: 13:35 - Subjective Subjective: Mr. Aguero was seen and examined at the bedside in ICU. He is alert, oriented. He has a new trach connected to ventilator. He remains on a low dose of sedation (Propofol). He is able to follow simple commands such as showing two fingers, field accommodation, and moving all his extremities. There was no untoward events overnight. Objective - Vital Signs/Intake and Output Vital Signs (last 24 hours): Temp Pulse Resp BP Pulse Ox 98.8 F 82 19 101/60 100 09/20/17 04:00 09/20/17 06:01 09/20/17 08:29 09/20/17 06:00 09/20/17 08:29 Intake and Output: 09/20/17 09/20/17 06:59 18:59 Intake Total 1344 Output Total 550 Balance 794 - Medications Medications: Current Medications Artificial Tears (Refresh Opth Soln) 0.3 ml OU Q12 PRN PRN Reason: Dry eyes Last Admin: 09/17/17 21:43 Dose: 0.3 ml Budesonide (Pulmicort Respules) 0.5 mg IH [id number] [facility] Last Admin: 09/20/17 08:21 Dose: 0.5 mg Clonidine HCl (Catapres Tts1 0.1 Mg/24 Hr) 1 patch TD Q7D@1000 [facility] Last Admin: 09/15/17 14:50 Dose: 1 patch Folic Acid (Folic Acid) 1 mg NG DAILY [facility] Last Admin: 09/20/17 12:37 Dose: Not Given Heparin Sodium (Porcine) (Heparin) 5,000 units SC Q12 [facility] PRN Reason: Protocol Hydralazine HCl (Apresoline) 10 mg IVP Q6 PRN PRN Reason: BP> 180 Last Admin: 09/19/17 18:35 Dose: 10 mg Levetiracetam 1,000 mg/ Sodium (Chloride) 110 mls @ 460 mls/hr IV Q12 [facility] Last Admin: 09/20/17 12:37 Dose: 460 mls/hr Propofol (Diprivan) 1,000 mg in 100 mls @ 2.062 mls/hr IV .Q24H PRN; Protocol; 5 MCG/KG/MIN PRN Reason: TITRATE PER MD ORDER Last Admin: 09/20/17 00:49 Dose: 30 mcg/kg/min, 12.369 mls/hr Metronidazole (Flagyl) 500 mg in 100 mls @ 100 mls/hr IVPB Q8 [facility] PRN Reason: Protocol Last Admin: 09/20/17 13:03 Dose: 100 mls/hr Cefazolin Sodium (Ancef 1gm In Ns) 1 gm in 100 mls @ 100 mls/hr IVPB Q12 [facility] PRN Reason: Protocol Last Admin: 09/20/17 12:36 Dose: 100 mls/hr Insulin Detemir (Levemir) 15 unit SC HS [facility] Last Admin: 09/19/17 22:23 Dose: 15 unit Insulin Human Lispro (Humalog High) 0 units SC Q6H [facility] PRN Reason: Protocol Last Admin: 09/20/17 12:58 Dose: Not Given Levalbuterol HCl (Xopenex) 0.63 mg IH [id number] [facility] Last Admin: 09/20/17 13:29 Dose: 0.63 mg Lorazepam (Ativan) 2 mg IVP Q3H PRN; Protocol PRN Reason: Agitation Last Admin: 09/14/17 10:15 Dose: 2 mg Multivitamins/Vitamin C (Multi-Delyn Liquid) 15 ml PO 0800 [facility] Last Admin: 09/20/17 12:37 Dose: Not Given Pantoprazole Sodium (Protonix Inj) 40 mg IVP Q12 [facility] Last Admin: 09/20/17 12:37 Dose: 40 mg Thiamine HCl (Vitamin B1 Inj) 100 mg IV DAILY [facility] Last Admin: 09/20/17 12:38 Dose: 100 mg Tobramycin/Dexamethasone (Tobradex Opht Susp) 0 ml OU QID [facility] Last Admin: 09/20/17 12:37 Dose: 1 drop Vancomycin HCl (Vancocin 25 Mg/Ml (Oral Use)) 500 mg PO Q6 [facility] PRN Reason: Protocol Last Admin: 09/20/17 13:03 Dose: 500 mg Vitamin A (Vitamin A & D Oint Ud Foilpak) 1 ea TOP Q8 PRN PRN Reason: Dry skin Last Admin: 09/17/17 18:41 Dose: 1 ea - Labs Labs: 09/20/17 06:00 09/20/17 06:00 PT 14.5 SECONDS (9.4-12.5) H 09/20/17 06:00 INR 1.26 (0.93-1.08) H 09/20/17 06:00 APTT 32.4 Seconds (25.1-36.5) 09/17/17 05:45 - Constitutional Appears: No Acute Distress - Head Exam Head Exam: NORMAL INSPECTION - Neurological Exam Neurological Exam: Alert, Awake Neuro motor strength exam: Left Upper Extremity: 2/1, Right Upper Extremity: 2/1 , Left Lower Extremity: 2/1, Right Lower Extremity: 2/1 Additional comments: Neurological improved from previous examination. He is alert and able to follow simple commands. Assessment and Plan (1) Seizure Assessment & Plan: Case discussed with Dr. roman, continue all current medical regimen, Recommend PT/ OT eval and treat. Status: Acute
--- NOTE | 2017-09-20 14:32 | CP.PCM.PN ---
Subjective - Date & Time of Evaluation Date of Evaluation: 09/20/17 Time of Evaluation: 14:31 - Subjective Subjective: renal follow up note Assessment: critical Acute Kidney Injury (N17.9) likely due to pre-renal state, SIRS, Acute tubular necrosis Hyponatermia, hypokalemia DM, HTN, chronic alcoholism, hepatic dysfunction acute pancreatitis with hyperglycemia HAGMA with lactic acidosis + alcohol ketoacidosis and starvation ketoacidosis Thrombocytopenia Hypomagnesemia, hypophosphatemia s/p cardiac arrest, seizure ARDS Plan UOP has improved, last hd was on 09/19 monitot I&Os, seems like showing signs of recovery ok to hold permacath placement for no w anemia i have gievn him a dose of aranesp today monitor phos levels discussed w/ ICU Staff ok to place in LTAC, will need close monitoring for renal function S: seen and examined remains intubated Physical Examination: General Appearance: ill appearing. on vent Vitals reviewed and noted as below Head; Atraumatic, normocephalic ENT: intubated Neck; supple Lungs: Increased respiratory rate/effort. mechanical bs Heart: Increased rate. s1s2 normal. No rub or gallop. Extremities: 1+ edema. No varicose veins Neurological: Patient is sedated Skin: Warm and dry. Abdomen: Abdomen is soft. Bowel sounds decreased has rectal tube Psych: unable to assess MSK: no joint tenderness Objective - Vital Signs/Intake and Output Vital Signs (last 24 hours): Temp Pulse Resp BP Pulse Ox 98.3 F 101 H 19 158/109 H 100 09/20/17 12:00 09/20/17 13:30 09/20/17 08:29 09/20/17 13:30 09/20/17 13:30 Intake and Output: 09/20/17 09/20/17 06:59 18:59 Intake Total 1344 Output Total 550 Balance 794 - Medications Medications: Current Medications Artificial Tears (Refresh Opth Soln) 0.3 ml OU Q12 PRN PRN Reason: Dry eyes Last Admin: 09/17/17 21:43 Dose: 0.3 ml Budesonide (Pulmicort Respules) 0.5 mg IH [id number] [facility] Last Admin: 09/20/17 08:21 Dose: 0.5 mg Clonidine HCl (Catapres Tts1 0.1 Mg/24 Hr) 1 patch TD Q7D@1000 [facility] Last Admin: 09/15/17 14:50 Dose: 1 patch Folic Acid (Folic Acid) 1 mg NG DAILY [facility] Last Admin: 09/20/17 12:37 Dose: Not Given Heparin Sodium (Porcine) (Heparin) 5,000 units SC Q12 [facility] PRN Reason: Protocol Hydralazine HCl (Apresoline) 10 mg IVP Q6 PRN PRN Reason: BP> 180 Last Admin: 09/19/17 18:35 Dose: 10 mg Levetiracetam 1,000 mg/ Sodium (Chloride) 110 mls @ 460 mls/hr IV Q12 [facility] Last Admin: 09/20/17 12:37 Dose: 460 mls/hr Propofol (Diprivan) 1,000 mg in 100 mls @ 2.062 mls/hr IV .Q24H PRN; Protocol; 5 MCG/KG/MIN PRN Reason: TITRATE PER MD ORDER Last Admin: 09/20/17 00:49 Dose: 30 mcg/kg/min, 12.369 mls/hr Cefazolin Sodium (Ancef 1gm In Ns) 1 gm in 100 mls @ 100 mls/hr IVPB Q12 [facility] PRN Reason: Protocol Last Admin: 09/20/17 12:36 Dose: 100 mls/hr Insulin Detemir (Levemir) 15 unit SC HS [facility] Last Admin: 09/19/17 22:23 Dose: 15 unit Insulin Human Lispro (Humalog High) 0 units SC Q6H [facility] PRN Reason: Protocol Last Admin: 09/20/17 12:58 Dose: Not Given Levalbuterol HCl (Xopenex) 0.63 mg IH [id number] [facility] Last Admin: 09/20/17 13:29 Dose: 0.63 mg Lorazepam (Ativan) 2 mg IVP Q3H PRN; Protocol PRN Reason: Agitation Last Admin: 09/14/17 10:15 Dose: 2 mg Multivitamins/Vitamin C (Multi-Delyn Liquid) 15 ml PO 0800 [facility] Last Admin: 09/20/17 12:37 Dose: Not Given Pantoprazole Sodium (Protonix Inj) 40 mg IVP Q12 [facility] Last Admin: 09/20/17 12:37 Dose: 40 mg Thiamine HCl (Vitamin B1 Inj) 100 mg IV DAILY [facility] Last Admin: 09/20/17 12:38 Dose: 100 mg Tobramycin/Dexamethasone (Tobradex Opht Susp) 0 ml OU QID [facility] Last Admin: 09/20/17 12:37 Dose: 1 drop Vancomycin HCl (Vancocin 25 Mg/Ml (Oral Use)) 500 mg PO Q6 [facility] PRN Reason: Protocol Last Admin: 09/20/17 13:03 Dose: 500 mg Vitamin A (Vitamin A & D Oint Ud Foilpak) 1 ea TOP Q8 PRN PRN Reason: Dry skin Last Admin: 09/17/17 18:41 Dose: 1 ea - Labs Labs: 09/20/17 06:00 09/20/17 06:00 PT 14.5 SECONDS (9.4-12.5) H 09/20/17 06:00 INR 1.26 (0.93-1.08) H 09/20/17 06:00 APTT 32.4 Seconds (25.1-36.5) 09/17/17 05:45
--- NOTE | 2017-09-20 14:53 | CP.PCM.PN ---
<Jay Harden - Last Filed: 09/21/17 04:14> Subjective - Date & Time of Evaluation Date of Evaluation: 09/20/17 Time of Evaluation: 11:10 - Subjective Subjective: Jay Harden PGY1 IM Progress Note Patient was seen and examined in ICU. Patient now has tracheostomy and gastrostomy and remains on light sedation. He is more awake and alert and is able to follow simple commands. Femoral Shiley catheter was removed. patient could not provide ROS. Objective - Vital Signs/Intake and Output Vital Signs (last 24 hours): Temp Pulse Resp BP Pulse Ox 98.3 F 101 H 19 158/109 H 100 09/20/17 12:00 09/20/17 13:30 09/20/17 08:29 09/20/17 13:30 09/20/17 13:30 Intake and Output: 09/20/17 09/20/17 06:59 18:59 Intake Total 1344 Output Total 550 Balance 794 - Medications Medications: Current Medications Artificial Tears (Refresh Opth Soln) 0.3 ml OU Q12 PRN PRN Reason: Dry eyes Last Admin: 09/17/17 21:43 Dose: 0.3 ml Budesonide (Pulmicort Respules) 0.5 mg IH [id number] [facility] Last Admin: 09/20/17 08:21 Dose: 0.5 mg Clonidine HCl (Catapres Tts1 0.1 Mg/24 Hr) 1 patch TD Q7D@1000 [facility] Last Admin: 09/15/17 14:50 Dose: 1 patch Folic Acid (Folic Acid) 1 mg NG DAILY [facility] Last Admin: 09/20/17 12:37 Dose: Not Given Heparin Sodium (Porcine) (Heparin) 5,000 units SC Q12 [facility] PRN Reason: Protocol Hydralazine HCl (Apresoline) 10 mg IVP Q6 PRN PRN Reason: BP> 180 Last Admin: 09/19/17 18:35 Dose: 10 mg Levetiracetam 1,000 mg/ Sodium (Chloride) 110 mls @ 460 mls/hr IV Q12 [facility] Last Admin: 09/20/17 12:37 Dose: 460 mls/hr Propofol (Diprivan) 1,000 mg in 100 mls @ 2.062 mls/hr IV .Q24H PRN; Protocol; 5 MCG/KG/MIN PRN Reason: TITRATE PER MD ORDER Last Admin: 09/20/17 00:49 Dose: 30 mcg/kg/min, 12.369 mls/hr Cefazolin Sodium (Ancef 1gm In Ns) 1 gm in 100 mls @ 100 mls/hr IVPB Q12 [facility] PRN Reason: Protocol Last Admin: 09/20/17 12:36 Dose: 100 mls/hr Insulin Detemir (Levemir) 15 unit SC HS [facility] Last Admin: 09/19/17 22:23 Dose: 15 unit Insulin Human Lispro (Humalog High) 0 units SC Q6H [facility]IA PRN Reason: Protocol Last Admin: 09/20/17 12:58 Dose: Not Given Levalbuterol HCl (Xopenex) 0.63 mg IH [id number] [facility] Last Admin: 09/20/17 13:29 Dose: 0.63 mg Lorazepam (Ativan) 2 mg IVP Q3H PRN; Protocol PRN Reason: Agitation Last Admin: 09/14/17 10:15 Dose: 2 mg Multivitamins/Vitamin C (Multi-Delyn Liquid) 15 ml PO 0800 [facility] Last Admin: 09/20/17 12:37 Dose: Not Given Pantoprazole Sodium (Protonix Inj) 40 mg IVP Q12 [facility] Last Admin: 09/20/17 12:37 Dose: 40 mg Thiamine HCl (Vitamin B1 Inj) 100 mg IV DAILY [facility] Last Admin: 09/20/17 12:38 Dose: 100 mg Tobramycin/Dexamethasone (Tobradex Opht Susp) 0 ml OU QID [facility] Last Admin: 09/20/17 12:37 Dose: 1 drop Vancomycin HCl (Vancocin 25 Mg/Ml (Oral Use)) 500 mg PO Q6 DENIA PRN Reason: Protocol Last Admin: 09/20/17 13:03 Dose: 500 mg Vitamin A (Vitamin A & D Oint Ud Foilpak) 1 ea TOP Q8 PRN PRN Reason: Dry skin Last Admin: 09/17/17 18:41 Dose: 1 ea - Labs Labs: 09/20/17 06:00 09/20/17 06:00 PT 14.5 SECONDS (9.4-12.5) H 09/20/17 06:00 INR 1.26 (0.93-1.08) H 09/20/17 06:00 APTT 32.4 Seconds (25.1-36.5) 09/17/17 05:45 - Additional Findings Additional findings: - Constitutional Appears: No Acute Distress - Head Exam Head Exam: NORMAL INSPECTION - Eye Exam Eye Exam: PERRL, Scleral icterus - ENT Exam Additional comments: remains on vent w/ tracheostomy tube - Neck Exam Additional comments: R IJ TLC in place - Respiratory Exam Respiratory Exam: Rhonchi (b/l bases R>L, improved). absent: Decreased Breath Sounds - Cardiovascular Exam Cardiovascular Exam: RRR, +S1, +S2 - GI/Abdominal Exam GI & Abdominal Exam: Soft, Normal Bowel Sounds. absent: Guarding Additional comments: s/p gastrostomy tube was draining out into bag - Rectal Exam Additional comments: rectal tube draining brown loose stools, decreased in quantity than prior exams - Exam Additional comments: penile swelling (circumferential) lazo catheter in place - Extremities Exam Extremities Exam: absent: Pedal Edema Additional comments: UE swelling 1+ pedal edema 2+ L hand ruptured bullous s/p removed R femoral Shiley catheter - Back Exam Back Exam: NORMAL INSPECTION - Neurological Exam Neurological Exam: Additional comments: less sedated Patient is awake but unable to verbalize sounds able to follow simple commands and move extremities x4 able to track with eyes - Psychiatric Exam Additional comments: was not obtained due to current condition - Skin Skin Exam: Normal Color, Warm Assessment and Plan - Assessment and Plan (Free Text) Assessment: 47yo M with a PMH of DM2, HTN and alcohol use who presented with URI symptoms such as cough, shortness of breath, palpitations. Last alcoholic drink was night prior to admission. Patient was admitted for septic shock (with lactate of 7.7 on presentation), high anion gap metabolic acidosis, acute pancreatitis 2 /2 ETOH vs triglycerides, IRWIN vs CKD, elevated LFTs likely 2/2 ETOH, elevated BNP, hyponatremia, and hypokalemia. s/p cardiac arrest and ROSC. Upon ROSC, patient vomited and likely aspirated, but was turned to the side and suctioned. Intubated and on vent with sedation in ICU. Patient initially required pressors to maintain BP but is no longer needing them. Remains on Keppra for seizure ppx. IRWIN has improved and urine production has increased, patient s/p 6 sessions of temporary dialysis and currently. Patient is POD1 trach/peg. Patient has no access for dialysis and currently doesn't require dialysis per Nephro as renal function is improving. Plan: 1. Septic shock likely 2/2 pancreatitis, resolved - no fevers overnight - initial blood, urine, trachea cultures showed no growth - 2/5 blood and urine cultures negative - trach-aspirate growing e.coli (sensitive to meropenem which patient is on), previously was not - cont Flagyl and PO Vanc for +cdiff in stool culture - cont Merrem for trach aspirate e.coli infection - continue ICU monitoring due to unstable vitals and altered mental state - cont tube feeds through gastrostomy per surgery/ICU team - CT Findings on admission were concerning for acute pancreatitis w/o ductal dilatation, calcifications or pseudocyst, and alcoholic liver steatosis - BP maintained off pressors currently, cont to monitor - cont contact precautions for c.diff infection - tylenol supp PRN - Monitor vitals - Maintain MAP > 65 - ID consulted, recs appreciated - GI consulted, recs appreciated - Surgery consulted, recs appreciated - Palliative care consulted for advanced directives, [facility] 2. AMS 2/2 Anion gap metabolic acidosis likely 2/2 lactic acidosis and ETOH, improving today - s/p cardiac arrest 09/08 - s/p endotacheal intubation due to hypoxemia and vomiting to reduce risk of aspiration; s/p tracheostomy POD1 - CT Head showed no acute intracranial abnormalities and mild chronic microangiopathic changes, w/ moderate global parencyhmal volume loss - ativan prn agitation - Maintain SaO2 > 90% - EEG was normal - cont Keppra for seizure ppx - Neurology consulted, recs appreciated - Cardiology consulted, recs appreciated 3. IWRIN vs CKD a/w Hypophosphatemia - s/p 6 dialysis sessions - Shiley catheter was removed; Nephro recommending against placement of permacath now as urine output and Cr have improved - given septic shock, IRWIN was likely component of pre-renal and intrinsic ischemic ATN (coarse granular casts seen on UA) - avoid nephrotoxins - Electrolyte imbalances will be repleted as needed - Nephrology consulted, recs appreciated 4. HTN - clonidine patch q7d - hydralazine prn - monitor VS 5. Hypergylcemia - Levemir 15u HS - ISS - could be a mix of reactive hyperglycemia and baseline uncontrolled DM2 - TSH and A1C WNL 6. 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 Transaminitis likely w/ underlying liver disease, improving - likely 2/2 shock liver and chronic ETOH use since INR is elevated - cont thiamine, MV and folic acid - hepatitis panel negative - HIV pending - continue to monitor 8. Poor prognosis - discuss with family/ poor prognosis and long-term plane - Palliative care consulted - patient for LTAC pending authorization Patient was seen, examined and discussed with attending, Dr. Jeannette Harden PGY1 Pager # [phone] <Tatum Machado - Last Filed: 09/21/17 14:14> Objective - Vital Signs/Intake and Output Vital Signs (last 24 hours): Temp Pulse Resp BP Pulse Ox 98.9 F 74 33 H 165/94 H 99 09/20/17 16:00 09/21/17 12:45 09/21/17 10:19 09/21/17 12:45 09/21/17 12:45 Intake and Output: 09/21/17 09/21/17 06:59 18:59 Intake Total 350 100 Output Total 800 Balance -450 100 - Medications Medications: Current Medications Artificial Tears (Refresh Opth Soln) 0.3 ml OU Q12 PRN PRN Reason: Dry eyes Last Admin: 09/17/17 21:43 Dose: 0.3 ml Budesonide (Pulmicort Respules) 0.5 mg IH [id number] [facility] Last Admin: 09/21/17 07:01 Dose: 0.5 mg Clonidine HCl (Catapres Tts1 0.1 Mg/24 Hr) 1 patch TD Q7D@1000 [facility] Last Admin: 09/15/17 14:50 Dose: 1 patch Folic Acid (Folic Acid) 1 mg NG DAILY [facility] Last Admin: 09/21/17 10:49 Dose: 1 mg Heparin Sodium (Porcine) (Heparin) 5,000 units SC Q12 [facility] PRN Reason: Protocol Last Admin: 09/20/17 22:20 Dose: 5,000 units Hydralazine HCl (Apresoline) 10 mg IVP Q6 PRN PRN Reason: BP> 180 Last Admin: 09/20/17 19:22 Dose: 10 mg Levetiracetam 1,000 mg/ Sodium (Chloride) 110 mls @ 460 mls/hr IV Q12 [facility] Last Admin: 09/20/17 22:20 Dose: 460 mls/hr Propofol (Diprivan) 1,000 mg in 100 mls @ 2.062 mls/hr IV .Q24H PRN; Protocol; 5 MCG/KG/MIN PRN Reason: TITRATE PER MD ORDER Last Admin: 09/21/17 10:47 Dose: 30 mcg/kg/min, 12.369 mls/hr Cefazolin Sodium (Ancef 1gm In Ns) 1 gm in 100 mls @ 100 mls/hr IVPB Q12 [facility] PRN Reason: Protocol Last Admin: 09/21/17 10:51 Dose: 100 mls/hr Insulin Detemir (Levemir) 15 unit SC HS [facility] Last Admin: 09/20/17 22:20 Dose: 15 unit Insulin Human Lispro (Humalog High) 0 units SC Q6H [facility] PRN Reason: Protocol Last Admin: 09/21/17 13:18 Dose: Not Given Levalbuterol HCl (Xopenex) 0.63 mg IH [id number] [facility] Last Admin: 09/21/17 13:58 Dose: 0.63 mg Lorazepam (Ativan) 2 mg IVP Q3H PRN; Protocol PRN Reason: Agitation Last Admin: 09/14/17 10:15 Dose: 2 mg Multivitamins/Vitamin C (Multi-Delyn Liquid) 15 ml PO 0800 [facility] Last Admin: 09/20/17 12:37 Dose: Not Given Pantoprazole Sodium (Protonix Inj) 40 mg IVP Q12 [facility] Last Admin: 09/20/17 22:27 Dose: 40 mg Thiamine HCl (Vitamin B1 Inj) 100 mg IV DAILY [facility] Last Admin: 09/20/17 12:38 Dose: 100 mg Tobramycin/Dexamethasone (Tobradex Opht Susp) 0 ml OU QID [facility] Last Admin: 09/21/17 09:40 Dose: 1 drop Vancomycin HCl (Vancocin 25 Mg/Ml (Oral Use)) 500 mg PO Q6 DENIA PRN Reason: Protocol Last Admin: 09/21/17 13:16 Dose: 500 mg Vitamin A (Vitamin A & D Oint Ud Foilpak) 1 ea TOP Q8 PRN PRN Reason: Dry skin Last Admin: 09/17/17 18:41 Dose: 1 ea - Labs Labs: 09/21/17 06:00 09/21/17 06:00 PT 14.5 SECONDS (9.4-12.5) H 09/21/17 06:00 INR 1.26 (0.93-1.08) H 09/21/17 06:00 APTT 32.4 Seconds (25.1-36.5) 09/17/17 05:45 Attending/Attestation - Attestation I have personally seen and examined this patient.: Yes I have fully participated in the care of the patient.: Yes I have reviewed all pertinent clinical information, including history, physical exam and plan: Yes Notes (Text): 09/21/17 14:07 Attending note; Patient seen and examined with resident in ICU this morning. Patient is a 47 year male with history of alcohol abuse, type 2 diabetes who came initially for abdominal pain and dyspnea. He was found to be severely acidotic and was diagnosed with alcoholic pancreatitis. Patient is post cardiac arrest. Currently intubated. s/p Trach and gastrostomy tube placement. patient is more alert. Able to follow few commands. leukocytosis is resolving. currently on ancef. ID evaluation appreciated. Blood and urine culture negative. Tracheostomy culture is positive for Escherichia coli. C. difficile colitis: Continue PO vancomycin. diarrhea resolved. acute kidney injury due to SIRS vs ATN/oliguric renal failure ;currently off hemodialysis. Case discussed with nephrology in detail. urine output is increasing. right groin Femoral catheter removed yesterday. creatinine is stable 1.7. Continue seizure precautions, keppra, thiamine, folate and MVI.Neurology evaluation appreciated. Elevated LFT due to shock liver/alcohol abuse. IMproved. anemia and thrombocytopenia due to alcohol induced BM suppression vs sepsis; improved significantly. Case discussed with social worker school for LTAC placement.
--- NOTE | 2017-09-20 15:52 | PN ---
DATE: 09/20/2017 SUBJECTIVE: The patient is seen and examined at bedside. He is actually much more alert and awake today. He is following commands. He is moving all upper and lower extremities. He was Trached and Pegged yesterday and he is on pressure support today. He is on 5/5 with FiO2 35%. PHYSICAL EXAMINATION: VITAL SIGNS: His blood pressure 156/98, his oxygen saturation 100%. His end-tidal CO2 on the monitor is 32. His heart rate is 98. GENERAL: He appears to be very comfortable. HEENT: Head and neck atraumatic. LUNGS: Clear auscultation bilaterally. HEART: Regular rate and rhythm. S1 and S2 normal. ABDOMEN: Soft, nontender, nondistended. MUSCULOSKELETAL: Trace bilateral pedal and ankle edema. NEUROLOGIC: The patient moves all extremities spontaneously. SKIN: Moist. PSYCHIATRIC: The patient is alert, awake, following commands. LABORATORY DATA: Sodium 143, potassium 3.8, chloride 112, carbon dioxide 22, BUN 27, creatinine 1.7, glucose 111. AST 24, ALT 30, total bilirubin 0.8. WBC 16.9, down from 21.3; hemoglobin 7.6, down from 9; platelet count 162. MEDICATIONS: Cefazolin, Pulmicort, clonidine, dexamethasone, tobramycin, folic acid, heparin subcu, hydralazine p.r.n., Levemir, regular insulin sliding scale high protocol, Keppra, Xopenex every 6 hours, Ativan p.r.n., Protonix, thiamine, and vancomycin p.o. Chest x-ray today showed patchy opacity in the right upper lobe. ASSESSMENT AND PLAN: This is a 47-year-old gentleman who is recovering from hypoxemic brain injury after cardiac arrest, thought to be secondary to distributive shock. He is remarkably improved with orthodoxy (at least some) of supratentorial acitvity and being able to follow commands. He remains hemodynamically stable and his ventilatory support substantially decreased. He is tolerating pressure support 5/5 with FiO2 of 35% and oxygen saturation 100%. He is clearly off of any pressors. He still has diarrhea (treated for C.diff), however, his urine output picked up and as per Nephrology service, he would not require hemodialysis every day and we will wean him down to every other day for now. The patient had Trached and Pegged yesterday which he tolerated well. Enteral nutrition was started. We will continue with protective lung ventilation strategy when on PRVC, daily weaning trials, and keep him off sedation drips. We will continue to maintain euvolemia, euglycemia, normothermia, and oxygen saturation more than 90%. We will continue with oral hygiene, head of bed elevated >35 degrees, DVT and GI prophylaxes. Maintain mean arterial pressure more than 65. ccm time 40 min Hasmukh Miller MD [facility]
--- NOTE | 2017-09-20 16:32 | CP.PCM.PN ---
<Lisseth Garcia - Last Filed: 09/20/17 16:31> Subjective - Date & Time of Evaluation Date of Evaluation: 09/20/17 Time of Evaluation: 09:30 - Subjective Subjective: Seen and examined at the bedside earlier today, chart reviewed. Patient is awake and alert status post trach and G-tube insertion by surgery. The patient had an endoscopy by GI and found to have esophageal ulcers, not suitable for PEG insertion. Patient noted to have decreased hemoglobin at 7.6. No reports of overt GI bleed. Objective - Vital Signs/Intake and Output Vital Signs (last 24 hours): Temp Pulse Resp BP Pulse Ox 98.3 F 116 H 19 145/88 98 09/20/17 12:00 09/20/17 15:00 09/20/17 08:29 09/20/17 15:00 09/20/17 15:00 Intake and Output: 09/20/17 09/20/17 06:59 18:59 Intake Total 1344 Output Total 550 Balance 794 - Medications Medications: Current Medications Artificial Tears (Refresh Opth Soln) 0.3 ml OU Q12 PRN PRN Reason: Dry eyes Last Admin: 09/17/17 21:43 Dose: 0.3 ml Budesonide (Pulmicort Respules) 0.5 mg IH [id number] [facility] Last Admin: 09/20/17 08:21 Dose: 0.5 mg Clonidine HCl (Catapres Tts1 0.1 Mg/24 Hr) 1 patch TD Q7D@1000 [facility] Last Admin: 09/15/17 14:50 Dose: 1 patch Folic Acid (Folic Acid) 1 mg NG DAILY [facility] Last Admin: 09/20/17 12:37 Dose: Not Given Heparin Sodium (Porcine) (Heparin) 5,000 units SC Q12 [facility] PRN Reason: Protocol Hydralazine HCl (Apresoline) 10 mg IVP Q6 PRN PRN Reason: BP> 180 Last Admin: 09/19/17 18:35 Dose: 10 mg Levetiracetam 1,000 mg/ Sodium (Chloride) 110 mls @ 460 mls/hr IV Q12 [facility] Last Admin: 09/20/17 12:37 Dose: 460 mls/hr Propofol (Diprivan) 1,000 mg in 100 mls @ 2.062 mls/hr IV .Q24H PRN; Protocol; 5 MCG/KG/MIN PRN Reason: TITRATE PER MD ORDER Last Admin: 09/20/17 00:49 Dose: 30 mcg/kg/min, 12.369 mls/hr Cefazolin Sodium (Ancef 1gm In Ns) 1 gm in 100 mls @ 100 mls/hr IVPB Q12 [facility] PRN Reason: Protocol Last Admin: 09/20/17 12:36 Dose: 100 mls/hr Insulin Detemir (Levemir) 15 unit SC HS [facility] Last Admin: 09/19/17 22:23 Dose: 15 unit Insulin Human Lispro (Humalog High) 0 units SC Q6H [facility] PRN Reason: Protocol Last Admin: 09/20/17 12:58 Dose: Not Given Levalbuterol HCl (Xopenex) 0.63 mg IH [id number] [facility] Last Admin: 09/20/17 13:29 Dose: 0.63 mg Lorazepam (Ativan) 2 mg IVP Q3H PRN; Protocol PRN Reason: Agitation Last Admin: 09/14/17 10:15 Dose: 2 mg Multivitamins/Vitamin C (Multi-Delyn Liquid) 15 ml PO 0800 [facility] Last Admin: 09/20/17 12:37 Dose: Not Given Pantoprazole Sodium (Protonix Inj) 40 mg IVP Q12 [facility] Last Admin: 09/20/17 12:37 Dose: 40 mg Thiamine HCl (Vitamin B1 Inj) 100 mg IV DAILY [facility] Last Admin: 09/20/17 12:38 Dose: 100 mg Tobramycin/Dexamethasone (Tobradex Opht Susp) 0 ml OU QID [facility] Last Admin: 09/20/17 12:37 Dose: 1 drop Vancomycin HCl (Vancocin 25 Mg/Ml (Oral Use)) 500 mg PO Q6 [facility] PRN Reason: Protocol Last Admin: 09/20/17 13:03 Dose: 500 mg Vitamin A (Vitamin A & D Oint Ud Foilpak) 1 ea TOP Q8 PRN PRN Reason: Dry skin Last Admin: 09/17/17 18:41 Dose: 1 ea - Labs Labs: 09/20/17 06:00 09/20/17 06:00 PT 14.5 SECONDS (9.4-12.5) H 09/20/17 06:00 INR 1.26 (0.93-1.08) H 09/20/17 06:00 APTT 32.4 Seconds (25.1-36.5) 09/17/17 05:45 - Constitutional Appears: No Acute Distress - Eye Exam Eye Exam: Normal appearance. absent: Scleral icterus - Neck Exam Neck Exam: Normal Inspection (positive trach) - Respiratory Exam Respiratory Exam: NORMAL BREATHING PATTERN. absent: Respiratory Distress - Cardiovascular Exam Cardiovascular Exam: +S1, +S2 - GI/Abdominal Exam GI & Abdominal Exam: Soft, Normal Bowel Sounds. absent: Guarding, Tenderness, Rebound - Neurological Exam Neurological Exam: Alert, Awake - Skin Skin Exam: Dry, Warm Assessment and Plan - Assessment and Plan (Free Text) Assessment: Assessment: Respiratory failure, status post trach and G-tube Anemia, status post endoscopy found to have LA grade a esophagitis grade D/ esophageal ulcers Status postcardiac arrest S/P Acute pancreatitis secondary to EtOH C. difficile colitis Elevated LFTs, which are showing a downward trend, multifactoral: medication induced,shock liver, ETOH(hepatitis panel negative) Seizure disorder Acute kidney injury Plan: G-tube feeding as per surgery Monitor LFTs which are improving continue Protonix twice a day On IV antibiotics on oral Vancomycin monitor H/H, overt GI bleeding Monitor electrolytes Spoke to our ICU team, recommend transfusion of packed RBC On DVT prophylaxis, subcutaneous heparin Seen and discussed with Dr. Fernandez <Yogi Fernandez V - Last Filed: 09/20/17 20:11> Objective - Vital Signs/Intake and Output Vital Signs (last 24 hours): Temp Pulse Resp BP Pulse Ox 98.9 F 102 H 20 180/109 H 98 09/20/17 16:00 09/20/17 19:22 09/20/17 18:10 09/20/17 19:22 09/20/17 19:00 Intake and Output: 09/20/17 09/21/17 18:59 06:59 Intake Total 300 Output Total 800 Balance -500 - Medications Medications: Current Medications Artificial Tears (Refresh Opth Soln) 0.3 ml OU Q12 PRN PRN Reason: Dry eyes Last Admin: 09/17/17 21:43 Dose: 0.3 ml Budesonide (Pulmicort Respules) 0.5 mg IH [id number] [facility] Last Admin: 09/20/17 08:21 Dose: 0.5 mg Clonidine HCl (Catapres Tts1 0.1 Mg/24 Hr) 1 patch TD Q7D@1000 [facility] Last Admin: 09/15/17 14:50 Dose: 1 patch Folic Acid (Folic Acid) 1 mg NG DAILY [facility] Last Admin: 09/20/17 12:37 Dose: Not Given Heparin Sodium (Porcine) (Heparin) 5,000 units SC Q12 [facility] PRN Reason: Protocol Hydralazine HCl (Apresoline) 10 mg IVP Q6 PRN PRN Reason: BP> 180 Last Admin: 09/20/17 19:22 Dose: 10 mg Levetiracetam 1,000 mg/ Sodium (Chloride) 110 mls @ 460 mls/hr IV Q12 [facility] Last Admin: 09/20/17 12:37 Dose: 460 mls/hr Propofol (Diprivan) 1,000 mg in 100 mls @ 2.062 mls/hr IV .Q24H PRN; Protocol; 5 MCG/KG/MIN PRN Reason: TITRATE PER MD ORDER Last Admin: 09/20/17 19:08 Dose: 20 mcg/kg/min, 8.246 mls/hr Cefazolin Sodium (Ancef 1gm In Ns) 1 gm in 100 mls @ 100 mls/hr IVPB Q12 [facility] PRN Reason: Protocol Last Admin: 09/20/17 12:36 Dose: 100 mls/hr Insulin Detemir (Levemir) 15 unit SC HS [facility] Last Admin: 09/19/17 22:23 Dose: 15 unit Insulin Human Lispro (Humalog High) 0 units SC Q6H [facility] PRN Reason: Protocol Last Admin: 09/20/17 18:58 Dose: Not Given Levalbuterol HCl (Xopenex) 0.63 mg IH [id number] [facility] Last Admin: 09/20/17 13:29 Dose: 0.63 mg Lorazepam (Ativan) 2 mg IVP Q3H PRN; Protocol PRN Reason: Agitation Last Admin: 09/14/17 10:15 Dose: 2 mg Multivitamins/Vitamin C (Multi-Delyn Liquid) 15 ml PO 0800 [facility] Last Admin: 09/20/17 12:37 Dose: Not Given Pantoprazole Sodium (Protonix Inj) 40 mg IVP Q12 [facility] Last Admin: 09/20/17 12:37 Dose: 40 mg Thiamine HCl (Vitamin B1 Inj) 100 mg IV DAILY [facility] Last Admin: 09/20/17 12:38 Dose: 100 mg Tobramycin/Dexamethasone (Tobradex Opht Susp) 0 ml OU QID [facility] Last Admin: 09/20/17 17:26 Dose: 1 drop Vancomycin HCl (Vancocin 25 Mg/Ml (Oral Use)) 500 mg PO Q6 [facility] PRN Reason: Protocol Last Admin: 09/20/17 17:26 Dose: 500 mg Vitamin A (Vitamin A & D Oint Ud Foilpak) 1 ea TOP Q8 PRN PRN Reason: Dry skin Last Admin: 09/17/17 18:41 Dose: 1 ea - Labs Labs: 09/20/17 06:00 09/20/17 06:00 PT 14.5 SECONDS (9.4-12.5) H 09/20/17 06:00 INR 1.26 (0.93-1.08) H 09/20/17 06:00 APTT 32.4 Seconds (25.1-36.5) 09/17/17 05:45 Attending/Attestation - Attestation I have personally seen and examined this patient.: Yes I have fully participated in the care of the patient.: Yes I have reviewed all pertinent clinical information, including history, physical exam and plan: Yes Notes (Text): This is an addendum to GI progress report dictated by Lisseth Garcia APN.The patient was seen and examined earlier. Medical records, lab studies, imagings were reviewed. Last 24 hours events reviewed. Agreed with the above treatment plan as outlined in Lisseth Garcia APN's notes the with the addition of the following Status post tracheostomy [place] G-tube placement by surgery Drop in blood count no obvious melena or bleeding per rectum EGD revealed grade D esophagitis with ulcerations in the distal esophagus spanning 5 cm G-tube feeding as per surgery Close follow-up hemoglobin and hematocrit High-dose PPI Discussed with the surgical team and intensive Resident 09/20/17 20:10
--- NOTE | 2017-09-20 20:13 | OP ---
PROCEDURE DATE: PREOPERATIVE DIAGNOSES: Sepsis, respiratory failure. POSTOPERATIVE DIAGNOSIS: Sepsis, respiratory failure. PROCEDURE: Tracheostomy and open gastrostomy. SURGEON: Jasen Pablo MD. STRUCTURAL IRONWORKER: Dr. Pratt. DESCRIPTION OF PROCEDURE: In the operating room, the patient was identified by name, name of the procedure, laterality. An upper endoscopy was done initially by Dr. Fernandez who found esophagitis and the PEG was converted to an open. On the operating table, the abdomen was prepped and draped with the tracheostomy prepared. The abdomen was opened through an upper midline. There was cirrhosis but no ascites, possible portal hypertension, but it was a little bit unclear. Stomach was brought into the wound. The gastrostomy was placed through a separate stab and a pursestring was made x2 on the gastrostomy site. It was opened. The tube was placed. The balloon inflated. The pursestrings were tied. 4-0 Vicryls were placed to complete the Shereen. The stomach was sutured to the abdominal wall. The abdomen was then irrigated, dried, and closed with a running #1 PDS above and below and tied in the middle. The incision was closed with Vicryl followed by sarah. The patient's neck was then hyperextended and prepped. Again, an upper midline incision was made over the trachea. This was dissected down through the strap muscles, dividing the isthmus of the thyroid and the pretracheal fascia was pushed away, exposing the tracheal rings. A hook was placed on the cricoid. The second and third rings were opened. Using a scissor, a piece was cut out. The area was dilated and #8 Shiley balloon was placed. There was immediate resumption of CO2 in the effluent. The trachea was then sutured down. The skin defect was closed. It was sutured to the skin. The patient was taken back to recovery room. An x-ray showed this to be in good position. Jasen Pablo MD
[2017-09-20] MEDS: Insulin Detemir 100 units/ml Vial (Levemir) SC SCH (22:20)
[2017-09-21] MEDS: Vancomycin 25 MG/ML PO SCH ×4 (00:48→18:43)
[2017-09-21] MEDS: Insulin Lispro (HUMAlog) HIGH Coverage SC SCH ×3 (00:49→18:48)
[2017-09-21] MEDS: Propofol 10 mg/ml 1,000 MG/100 ML VIAL IV PRN ×3 (01:34→20:20)
[2017-09-21 03:31] LABS: ARTERIAL BLOOD GAS HCO3 19.9 mmol/L (21-28); ARTERIAL BLOOD GAS HEMOGLOBIN 7.1 g/dL (11.7-17.4); ARTERIAL BLOOD GAS PCO2 30 mm/Hg (35-45); ARTERIAL BLOOD GAS PH 7.43 (7.35-7.45); ARTERIAL BLOOD GAS TCO2 20.8 mmol.L (22-28)
[2017-09-21 06:44] LABS: PROTHROMBIN TIME 14.5 SECONDS (9.4-12.5)
[2017-09-21 06:45] LABS: INR 1.26 (0.93-1.08)
[2017-09-21] MEDS: Levalbuterol 0.63 MG/3 ML Inhal Soln UD IH SCH ×3 (07:01→21:00)
[2017-09-21] MEDS: Budesonide 0.5 mg/2 ml Inhal Susp UD IH SCH ×2 (07:01→21:00)
[2017-09-21 07:05] LABS: BASO # 0.06 K/mm3 (0.0-2.0); BASO % 0.5 % (0.0-3.0); EOS % 0.2 % (1.5-5.0); GRAN # 8.17 (1.4-6.5); GRAN % 69.4 % (50.0-68.0); LYMPH # 2.3 (1.2-3.4); LYMPH % 19.8 % (22.0-35.0); MEAN CELL VOLUME 95.9 fl (80.0-105.0); MEAN CORPUSCULAR HEMOGLOBIN 30.6 pg (25.0-35.0); MEAN CORPUSCULAR HGB CONC 31.9 g/dl (31.0-37.0); MEAN PLATELET VOLUME 11.1 fl (7.0-11.0); MONO # 1.2 (0.1-0.6); MONO % 10.1 % (1.0-6.0); RBC 2.45 10^6/uL (3.5-6.1); RED CELL DISTRIBUTION WIDTH 17.7 % (11.5-14.5); WHITE BLOOD COUNT 11.8 10^3/ul (4.5-11.0)
[2017-09-21 07:14] LABS: ALB/GLOB RATIO 0.6 (1.1-1.8); ALBUMIN 2.6 g/dL (3.0-4.8); CALCIUM 8.8 mg/dL (8.4-10.5); MAGNESIUM 1.6 mg/dL (1.7-2.2)
[2017-09-21 07:22] LABS: HEMOGLOBIN 7.5 g/dL (14.0-18.0)
--- NOTE | 2017-09-21 07:45 | CP.PCM.PN ---
Subjective - Date & Time of Evaluation Date of Evaluation: 09/21/17 Time of Evaluation: 06:45 - Subjective Subjective: General Surgery Progress Note for Dr. Pablo Patient seen and examined on bedside. Patient is awake, following commands, off of sedation. 12 point review of systems unobtainable. Nurse reports no events overnight. Objective - Vital Signs/Intake and Output Vital Signs (last 24 hours): Temp Pulse Resp BP Pulse Ox 98.9 F 95 H 18 143/95 H 97 09/20/17 16:00 09/21/17 06:30 09/21/17 03:41 09/21/17 06:30 09/21/17 06:30 Intake and Output: 09/21/17 09/21/17 06:59 18:59 Intake Total 350 Output Total 800 Balance -450 - Medications Medications: Current Medications Artificial Tears (Refresh Opth Soln) 0.3 ml OU Q12 PRN PRN Reason: Dry eyes Last Admin: 09/17/17 21:43 Dose: 0.3 ml Budesonide (Pulmicort Respules) 0.5 mg IH [id number] [facility] Last Admin: 09/21/17 07:01 Dose: 0.5 mg Clonidine HCl (Catapres Tts1 0.1 Mg/24 Hr) 1 patch TD Q7D@1000 [facility] Last Admin: 09/15/17 14:50 Dose: 1 patch Folic Acid (Folic Acid) 1 mg NG DAILY [facility] Last Admin: 09/20/17 12:37 Dose: Not Given Heparin Sodium (Porcine) (Heparin) 5,000 units SC Q12 [facility] PRN Reason: Protocol Last Admin: 09/20/17 22:20 Dose: 5,000 units Hydralazine HCl (Apresoline) 10 mg IVP Q6 PRN PRN Reason: BP> 180 Last Admin: 09/20/17 19:22 Dose: 10 mg Levetiracetam 1,000 mg/ Sodium (Chloride) 110 mls @ 460 mls/hr IV Q12 [facility] Last Admin: 09/20/17 22:20 Dose: 460 mls/hr Propofol (Diprivan) 1,000 mg in 100 mls @ 2.062 mls/hr IV .Q24H PRN; Protocol; 5 MCG/KG/MIN PRN Reason: TITRATE PER MD ORDER Last Admin: 09/21/17 01:34 Dose: 30 mcg/kg/min, 12.369 mls/hr Cefazolin Sodium (Ancef 1gm In Ns) 1 gm in 100 mls @ 100 mls/hr IVPB Q12 [facility] PRN Reason: Protocol Last Admin: 09/20/17 22:19 Dose: 100 mls/hr Insulin Detemir (Levemir) 15 unit SC HS [facility] Last Admin: 09/20/17 22:20 Dose: 15 unit Insulin Human Lispro (Humalog High) 0 units SC Q6H [facility] PRN Reason: Protocol Last Admin: 09/21/17 00:49 Dose: Not Given Levalbuterol HCl (Xopenex) 0.63 mg IH [id number] [facility] Last Admin: 09/21/17 07:01 Dose: 0.63 mg Lorazepam (Ativan) 2 mg IVP Q3H PRN; Protocol PRN Reason: Agitation Last Admin: 09/14/17 10:15 Dose: 2 mg Multivitamins/Vitamin C (Multi-Delyn Liquid) 15 ml PO 0800 [facility] Last Admin: 09/20/17 12:37 Dose: Not Given Pantoprazole Sodium (Protonix Inj) 40 mg IVP Q12 [facility] Last Admin: 09/20/17 22:27 Dose: 40 mg Thiamine HCl (Vitamin B1 Inj) 100 mg IV DAILY [facility] Last Admin: 09/20/17 12:38 Dose: 100 mg Tobramycin/Dexamethasone (Tobradex Opht Susp) 0 ml OU QID [facility] Last Admin: 09/20/17 22:29 Dose: 1 drop Vancomycin HCl (Vancocin 25 Mg/Ml (Oral Use)) 500 mg PO Q6 [facility] PRN Reason: Protocol Last Admin: 09/21/17 05:43 Dose: 500 mg Vitamin A (Vitamin A & D Oint Ud Foilpak) 1 ea TOP Q8 PRN PRN Reason: Dry skin Last Admin: 09/17/17 18:41 Dose: 1 ea - Labs Labs: 09/21/17 06:00 09/21/17 06:00 PT 14.5 SECONDS (9.4-12.5) H 09/21/17 06:00 INR 1.26 (0.93-1.08) H 09/21/17 06:00 APTT 32.4 Seconds (25.1-36.5) 09/17/17 05:45 - Constitutional Appears: Well, Non-toxic - Head Exam Head Exam: ATRAUMATIC, NORMOCEPHALIC - Eye Exam Eye Exam: EOMI - Neck Exam Additional comments: 8-[place] non fenestrated, cuffed tracheostomy with dressing clean, dry, and intact - Respiratory Exam Respiratory Exam: NORMAL BREATHING PATTERN. absent: Accessory Muscle Use - Cardiovascular Exam Cardiovascular Exam: absent: Tachycardia - GI/Abdominal Exam GI & Abdominal Exam: Soft. absent: Distended, Guarding, Tenderness, Rebound Additional comments: Open Shereen gastromtomy placement in left upper quadrant present - Extremities Exam Extremities Exam: Normal Inspection. absent: Calf Tenderness - Neurological Exam Neurological Exam: Alert, Awake Additional comments: GCS 6 in motor response, 4 in eye opening response, vocal response cannot be assessed given patient is intubated with tracheostomy. - Psychiatric Exam Psychiatric exam: Normal Affect, Normal Mood - Skin Skin Exam: Dry, Intact, Normal Color, Warm Assessment and Plan - Assessment and Plan (Free Text) Assessment: 47 year old male who is POD #2 for open tracheostomy and open [place]reen gastrostomy tube placement. Plan: - Glucerna 1.2 c tube feeds with the recommendation to increase tube feeds by 10 ml/hr each hour with a goal rate of 60 ml/hr. - Check residual every 4 hours; if greater than 500 ml, then hold tube feeds. Flush every four hours with 100 ml of water. - Tracheostomy dressing removed. - Will remove gastrostomy sutures/sarah on 09/29/17 (POD #10). - Continue with medical management Thank you for allowing us to participate in the care of this patient. Please reconsult as needed. Case discussed with attending physican, Dr. Pablo
[2017-09-21] MEDS ORDERED: Magnesium Sulfate 1 gm in D5W 1 GM/100 ML BAG IVPB ONE (08:12)
--- NOTE | 2017-09-21 08:56 | CP.PCM.PN ---
<Jay Harden - Last Filed: 09/21/17 13:45> Subjective - Date & Time of Evaluation Date of Evaluation: 09/21/17 Time of Evaluation: 09:45 - Subjective Subjective: Jay Harden PGY1 IM Progress Note Patient was seen and examined in ICU. no acute overnight events. Patient s/p tracheostomy and gastrostomy and remains on light sedation but is more awake and alert and is able to follow simple commands. Patient attempting to verbalize but is unable to. Rectal tube was also removed overnight. Lazo catheter providing good urine output. patient could not provide ROS. Objective - Vital Signs/Intake and Output Vital Signs (last 24 hours): Temp Pulse Resp BP Pulse Ox 98.9 F 95 H 27 H 143/95 H 96 09/20/17 16:00 09/21/17 06:30 09/21/17 08:02 09/21/17 06:30 09/21/17 08:02 Intake and Output: 09/21/17 09/21/17 06:59 18:59 Intake Total 350 Output Total 800 Balance -450 - Medications Medications: Current Medications Artificial Tears (Refresh Opth Soln) 0.3 ml OU Q12 PRN PRN Reason: Dry eyes Last Admin: 09/17/17 21:43 Dose: 0.3 ml Budesonide (Pulmicort Respules) 0.5 mg IH [id number] [facility] Last Admin: 09/21/17 07:01 Dose: 0.5 mg Clonidine HCl (Catapres Tts1 0.1 Mg/24 Hr) 1 patch TD Q7D@1000 [facility] Last Admin: 09/15/17 14:50 Dose: 1 patch Folic Acid (Folic Acid) 1 mg NG DAILY [facility] Last Admin: 09/20/17 12:37 Dose: Not Given Heparin Sodium (Porcine) (Heparin) 5,000 units SC Q12 [facility] PRN Reason: Protocol Last Admin: 09/20/17 22:20 Dose: 5,000 units Hydralazine HCl (Apresoline) 10 mg IVP Q6 PRN PRN Reason: BP> 180 Last Admin: 09/20/17 19:22 Dose: 10 mg Levetiracetam 1,000 mg/ Sodium (Chloride) 110 mls @ 460 mls/hr IV Q12 [facility] Last Admin: 02/08/18 22:20 Dose: 460 mls/hr Propofol (Diprivan) 1,000 mg in 100 mls @ 2.062 mls/hr IV .Q24H PRN; Protocol; 5 MCG/KG/MIN PRN Reason: TITRATE PER MD ORDER Last Admin: 09/21/17 01:34 Dose: 30 mcg/kg/min, 12.369 mls/hr Cefazolin Sodium (Ancef 1gm In Ns) 1 gm in 100 mls @ 100 mls/hr IVPB Q12 [facility] PRN Reason: Protocol Last Admin: 09/20/17 22:19 Dose: 100 mls/hr Magnesium Sulfate/Dextrose (Magnesium Sulfate 1 Gm/100 Ml D5w) 1 gm in 100 mls @ 100 mls/hr IVPB ONCE ONE Stop: 09/21/17 09:11 Insulin Detemir (Levemir) 15 unit SC HS [facility] Last Admin: 09/20/17 22:20 Dose: 15 unit Insulin Human Lispro (Humalog High) 0 units SC Q6H [facility] PRN Reason: Protocol Last Admin: 09/21/17 00:49 Dose: Not Given Levalbuterol HCl (Xopenex) 0.63 mg IH [id number] [facility] Last Admin: 09/21/17 07:01 Dose: 0.63 mg Lorazepam (Ativan) 2 mg IVP Q3H PRN; Protocol PRN Reason: Agitation Last Admin: 09/14/17 10:15 Dose: 2 mg Multivitamins/Vitamin C (Multi-Delyn Liquid) 15 ml PO 0800 [facility] Last Admin: 09/20/17 12:37 Dose: Not Given Pantoprazole Sodium (Protonix Inj) 40 mg IVP Q12 [facility] Last Admin: 09/20/17 22:27 Dose: 40 mg Thiamine HCl (Vitamin B1 Inj) 100 mg IV DAILY [facility] Last Admin: 09/20/17 12:38 Dose: 100 mg Tobramycin/Dexamethasone (Tobradex Opht Susp) 0 ml OU QID [facility] Last Admin: 09/20/17 22:29 Dose: 1 drop Vancomycin HCl (Vancocin 25 Mg/Ml (Oral Use)) 500 mg PO Q6 [facility] PRN Reason: Protocol Last Admin: 09/21/17 05:43 Dose: 500 mg Vitamin A (Vitamin A & D Oint Ud Foilpak) 1 ea TOP Q8 PRN PRN Reason: Dry skin Last Admin: 09/17/17 18:41 Dose: 1 ea - Labs Labs: 09/21/17 06:00 09/21/17 06:00 PT 14.5 SECONDS (9.4-12.5) H 09/21/17 06:00 INR 1.26 (0.93-1.08) H 09/21/17 06:00 APTT 32.4 Seconds (25.1-36.5) 09/17/17 05:45 - Additional Findings Additional findings: - Constitutional Appears: No Acute Distress - Head Exam Head Exam: NORMAL INSPECTION - Eye Exam Eye Exam: PERRL, Scleral icterus - ENT Exam Additional comments: remains on vent w/ tracheostomy tube - Neck Exam Additional comments: R IJ TLC in place - Respiratory Exam Respiratory Exam: Rhonchi (b/l). absent: Decreased Breath Sounds - Cardiovascular Exam Cardiovascular Exam: RRR, +S1, +S2 - GI/Abdominal Exam GI & Abdominal Exam: Soft, Normal Bowel Sounds. absent: Guarding Additional comments: s/p gastrostomy tube feeds running through PEG tube - Rectal Exam Additional comments: no rectal tube noted - Exam Additional comments: penile swelling (circumferential) lazo catheter in place, draining yellow clear urine - Extremities Exam Extremities Exam: absent: Pedal Edema Additional comments: UE swelling 1+ pedal edema 2+ L hand ruptured bullous - Back Exam Back Exam: NORMAL INSPECTION - Neurological Exam Neurological Exam: Additional comments: less sedated Patient is awake but unable to verbalize sounds able to follow simple commands and move extremities x4 able to track with eyes - Psychiatric Exam Additional comments: was not obtained due to current condition - Skin Skin Exam: Normal Color, Warm Assessment and Plan - Assessment and Plan (Free Text) Assessment: 47yo M with a PMH of DM2, HTN and alcohol use who presented with URI symptoms such as cough, shortness of breath, palpitations. Last alcoholic drink was night prior to admission. Patient was admitted for septic shock (with lactate of 7.7 on presentation), high anion gap metabolic acidosis, acute pancreatitis 2 /2 ETOH vs triglycerides, IRWIN vs CKD, elevated LFTs likely 2/2 ETOH, elevated BNP, hyponatremia, and hypokalemia. s/p cardiac arrest and ROSC. Upon ROSC, patient vomited and likely aspirated, but was turned to the side and suctioned. Intubated and on vent with sedation in ICU. Patient initially required pressors to maintain BP but is no longer needing them. Remains on Keppra for seizure ppx. IRWIN has improved and urine production has increased, patient s/p 6 sessions of temporary dialysis and currently. Patient is POD2 trach/peg. Patient has no access for dialysis and currently doesn't require dialysis per Nephro as renal function is improving and urine output is adequate. Plan: 1. Septic shock likely 2/2 pancreatitis, resolved - no fevers overnight - initial blood, urine, trachea cultures showed no growth - 2/5 blood and urine cultures negative - trach-aspirate growing e.coli (sensitive to meropenem which patient is on), previously was not - cont Flagyl and PO Vanc for +cdiff in stool culture - cont Merrem for trach aspirate e.coli infection - continue ICU monitoring due to unstable vitals and altered mental state - cont tube feeds through gastrostomy per surgery/ICU team - CT Findings on admission were concerning for acute pancreatitis w/o ductal dilatation, calcifications or pseudocyst, and alcoholic liver steatosis - BP maintained off pressors currently, cont to monitor - cont contact precautions for c.diff infection - tylenol supp PRN - Monitor vitals - Maintain MAP > 65 - ID consulted, recs appreciated - GI consulted, recs appreciated - Surgery consulted, recs appreciated - Palliative care consulted for advanced directives, patient will be transferred to [facility] acute [facility] pending authorization 2. AMS 2/2 Anion gap metabolic acidosis likely 2/2 lactic acidosis and ETOH, improving today - s/p cardiac arrest 09/08 - s/p endotacheal intubation due to hypoxemia and vomiting to reduce risk of aspiration - s/p tracheostomy - CT Head showed no acute intracranial abnormalities and mild chronic microangiopathic changes, w/ moderate global parencyhmal volume loss - ativan prn agitation - Maintain SaO2 > 90% - EEG was normal - cont Keppra for seizure ppx - Neurology consulted, recs appreciated - Cardiology consulted, recs appreciated 3. IRWIN vs CKD a/w Hypomagnesemia - s/p 6 dialysis sessions - Shiley catheter was removed; Nephro recommending against placement of permacath now as urine output and Cr have improved - given septic shock, IRWIN was likely component of pre-renal and intrinsic ischemic ATN (coarse granular casts seen on UA) - avoid nephrotoxins - Electrolyte imbalances will be repleted as needed - Nephrology consulted, recs appreciated 4. HTN - clonidine patch q7d - hydralazine prn - monitor VS 5. Hypergylcemia - Levemir 15u HS - ISS - could be a mix of reactive hyperglycemia and baseline uncontrolled DM2 - TSH and A1C WNL 6. 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 Transaminitis likely w/ underlying liver disease, improving - likely 2/2 shock liver and chronic ETOH use since INR is elevated - cont thiamine, MV and folic acid - hepatitis panel negative - HIV pending - continue to monitor 8. Poor prognosis - discuss with family/ poor prognosis and long-term plane - Palliative care consulted - patient for LTAC pending authorization Patient was seen, examined and discussed with attending, Dr. Jeannette Harden PGY1 Pager # [phone] <Tatum Machado - Last Filed: 09/22/17 15:06> Objective - Vital Signs/Intake and Output Vital Signs (last 24 hours): Temp Pulse Resp BP Pulse Ox 97.5 F L 81 25 H 166/105 H 100 09/22/17 04:00 09/22/17 12:08 09/22/17 07:54 09/22/17 12:08 09/22/17 07:54 Intake and Output: 09/22/17 09/22/17 06:59 18:59 Intake Total 1720 Output Total 3750 Balance -2030 - Medications Medications: Current Medications Artificial Tears (Refresh Opth Soln) 0.3 ml OU Q12 PRN PRN Reason: Dry eyes Last Admin: 09/17/17 21:43 Dose: 0.3 ml Budesonide (Pulmicort Respules) 0.5 mg IH [id number] [facility] Last Admin: 09/22/17 07:54 Dose: 0.5 mg Clonidine HCl (Catapres Tts1 0.1 Mg/24 Hr) 1 patch TD Q7D@1000 [facility] Last Admin: 09/22/17 09:56 Dose: 1 patch Folic Acid (Folic Acid) 1 mg NG DAILY [facility] Last Admin: 09/22/17 10:03 Dose: 1 mg Heparin Sodium (Porcine) (Heparin) 5,000 units SC Q12 [facility] PRN Reason: Protocol Last Admin: 09/22/17 09:58 Dose: 5,000 units Hydralazine HCl (Apresoline) 10 mg IVP Q6 PRN PRN Reason: BP> 180 Last Admin: 09/22/17 12:08 Dose: 10 mg Levetiracetam 1,000 mg/ Sodium (Chloride) 110 mls @ 460 mls/hr IV Q12 [facility] Last Admin: 09/22/17 09:55 Dose: 460 mls/hr Cefazolin Sodium (Ancef 1gm In Ns) 1 gm in 100 mls @ 100 mls/hr IVPB Q12 [facility] PRN Reason: Protocol Last Admin: 09/22/17 09:55 Dose: 100 mls/hr Insulin Detemir (Levemir) 15 unit SC HS [facility] Last Admin: 09/21/17 22:37 Dose: 15 unit Insulin Human Lispro (Humalog High) 0 units SC Q6H [facility] PRN Reason: Protocol Last Admin: 09/22/17 07:52 Dose: Not Given Levalbuterol HCl (Xopenex) 0.63 mg IH [id number] [facility] Last Admin: 09/22/17 13:20 Dose: 0.63 mg Lorazepam (Ativan) 2 mg IVP Q3H PRN; Protocol PRN Reason: Agitation Last Admin: 09/21/17 21:41 Dose: 2 mg Multivitamins/Vitamin C (Multi-Delyn Liquid) 15 ml PO 0800 [facility] Last Admin: 09/22/17 08:44 Dose: 15 ml Pantoprazole Sodium (Protonix Inj) 40 mg IVP Q12 [facility] Last Admin: 09/22/17 09:55 Dose: 40 mg Thiamine HCl (Vitamin B1 Inj) 100 mg IV DAILY [facility] Last Admin: 09/22/17 09:56 Dose: 100 mg Tobramycin/Dexamethasone (Tobradex Opht Susp) 0 ml OU QID [facility] Last Admin: 09/22/17 09:59 Dose: 1 drop Vancomycin HCl (Vancocin 25 Mg/Ml (Oral Use)) 500 mg PO Q6 [facility] PRN Reason: Protocol Last Admin: 09/22/17 12:06 Dose: 500 mg Vitamin A (Vitamin A & D Oint Ud Foilpak) 1 ea TOP Q8 PRN PRN Reason: Dry skin Last Admin: 09/17/17 18:41 Dose: 1 ea - Labs Labs: 09/22/17 06:00 09/22/17 06:00 PT 13.8 SECONDS (9.4-12.5) H 09/22/17 06:00 INR 1.20 (0.93-1.08) H 09/22/17 06:00 APTT 32.4 Seconds (25.1-36.5) 09/17/17 05:45 Attending/Attestation - Attestation I have personally seen and examined this patient.: Yes I have fully participated in the care of the patient.: Yes I have reviewed all pertinent clinical information, including history, physical exam and plan: Yes Notes (Text): 09/22/17 13:52 Attending note; Patient seen and examined with resident. Patient is a 47 year male with history of alcohol abuse, type 2 diabetes who came initially for abdominal pain and dyspnea. He was found to be severely acidotic and was diagnosed with alcoholic pancreatitis. Patient is post cardiac arrest. Currently intubated. s/p Trach and gastrostomy tube placement. patient is more alert. Able to follow few commands. leukocytosis is resolving. currently on ancef. Blood and urine culture negative. Tracheostomy culture is positive for Escherichia coli. C. difficile colitis: Continue PO vancomycin. diarrhea resolved. acute kidney injury due to SIRS vs ATN/oliguric renal failure ;currently off hemodialysis. Case discussed with nephrology in detail. urine output is increasing. no need for dialysis now. Monitor urine output and creatinine closely. Continue seizure precautions, keppra, thiamine, folate and MVI.Neurology evaluation appreciated. Elevated LFT due to shock liver/alcohol abuse. IMproved. anemia and thrombocytopenia due to alcohol induced BM suppression vs sepsis; improved significantly. case discussed with elementary school social worker in detail. Pending authorization for LTAC placement. 09/22/17 15:05
[2017-09-21] MEDS: levETIRAcetam 1,000 MG in Sodium Chloride 0.9% 100 ML IV SCH ×2 (09:35→21:48)
[2017-09-21] MEDS: Tobramycin/Dexamethasone (Tobradex) Opth Sol (2.5 ml) OU SCH ×4 (09:40→21:49)
[2017-09-21] MEDS: Multi Vitamins 15 mL UD Oral Solution PO SCH (09:45)
--- NOTE | 2017-09-21 09:57 | CP.PCM.PN ---
Subjective - Date & Time of Evaluation Date of Evaluation: 09/21/17 Time of Evaluation: 09:54 - Subjective Subjective: RENAL FOLLOW UP Assessment: critical Acute Kidney Injury (N17.9) likely due to pre-renal state, SIRS, Acute tubular necrosis Hypernatermia hypomagnesemia DM, HTN, chronic alcoholism, hepatic dysfunction acute pancreatitis with hyperglycemia HAGMA with lactic acidosis + alcohol ketoacidosis and starvation ketoacidosis Thrombocytopenia hyperphosphatemia s/p cardiac arrest, seizure ARDS Plan UOP has improved, last hd was on 09/19 continue to hold hd cath out hold permacath placement for no anemia s/p aranesp 09/20 monitor phos levels replete mag inc free water flush to 200 q 4 discussed w/ ICU Staff ok to place in LTAC, will need close monitoring for renal function S: seen and examined remains intubated Physical Examination: General Appearance: ill appearing. on vent Vitals reviewed and noted as below Head; Atraumatic, normocephalic ENT: intubated Neck; supple Lungs: dec bs at bases mechanical bs Heart: Increased rate. s1s2 normal. No rub or gallop. Extremities: 1+ edema. No varicose veins Neurological: Patient is sedated Skin: Warm and dry. Abdomen: Abdomen is soft. Bowel sounds decreased has rectal tube Psych: unable to assess MSK: no joint tenderness Objective - Vital Signs/Intake and Output Vital Signs (last 24 hours): Temp Pulse Resp BP Pulse Ox 98.9 F 95 H 27 H 143/95 H 96 09/20/17 16:00 09/21/17 06:30 09/21/17 08:02 09/21/17 06:30 09/21/17 08:02 Intake and Output: 09/21/17 09/21/17 06:59 18:59 Intake Total 350 Output Total 800 Balance -450 - Medications Medications: Current Medications Artificial Tears (Refresh Opth Soln) 0.3 ml OU Q12 PRN PRN Reason: Dry eyes Last Admin: 09/17/17 21:43 Dose: 0.3 ml Budesonide (Pulmicort Respules) 0.5 mg IH [id number] [facility] Last Admin: 09/21/17 07:01 Dose: 0.5 mg Clonidine HCl (Catapres Tts1 0.1 Mg/24 Hr) 1 patch TD Q7D@1000 [facility] Last Admin: 09/15/17 14:50 Dose: 1 patch Folic Acid (Folic Acid) 1 mg NG DAILY [facility] Last Admin: 09/20/17 12:37 Dose: Not Given Heparin Sodium (Porcine) (Heparin) 5,000 units SC Q12 [facility] PRN Reason: Protocol Last Admin: 09/20/17 22:20 Dose: 5,000 units Hydralazine HCl (Apresoline) 10 mg IVP Q6 PRN PRN Reason: BP> 180 Last Admin: 09/20/17 19:22 Dose: 10 mg Levetiracetam 1,000 mg/ Sodium (Chloride) 110 mls @ 460 mls/hr IV Q12 [facility] Last Admin: 09/20/17 22:20 Dose: 460 mls/hr Propofol (Diprivan) 1,000 mg in 100 mls @ 2.062 mls/hr IV .Q24H PRN; Protocol; 5 MCG/KG/MIN PRN Reason: TITRATE PER MD ORDER Last Admin: 09/21/17 01:34 Dose: 30 mcg/kg/min, 12.369 mls/hr Cefazolin Sodium (Ancef 1gm In Ns) 1 gm in 100 mls @ 100 mls/hr IVPB Q12 [facility] PRN Reason: Protocol Last Admin: 09/20/17 22:19 Dose: 100 mls/hr Insulin Detemir (Levemir) 15 unit SC HS [facility] Last Admin: 09/20/17 22:20 Dose: 15 unit Insulin Human Lispro (Humalog High) 0 units SC Q6H [facility] PRN Reason: Protocol Last Admin: 09/21/17 00:49 Dose: Not Given Levalbuterol HCl (Xopenex) 0.63 mg IH [id number] [facility] Last Admin: 09/21/17 07:01 Dose: 0.63 mg Lorazepam (Ativan) 2 mg IVP Q3H PRN; Protocol PRN Reason: Agitation Last Admin: 09/14/17 10:15 Dose: 2 mg Multivitamins/Vitamin C (Multi-Delyn Liquid) 15 ml PO 0800 [facility] Last Admin: 09/20/17 12:37 Dose: Not Given Pantoprazole Sodium (Protonix Inj) 40 mg IVP Q12 [facility] Last Admin: 09/20/17 22:27 Dose: 40 mg Thiamine HCl (Vitamin B1 Inj) 100 mg IV DAILY [facility] Last Admin: 09/20/17 12:38 Dose: 100 mg Tobramycin/Dexamethasone (Tobradex Opht Susp) 0 ml OU QID [facility] Last Admin: 09/20/17 22:29 Dose: 1 drop Vancomycin HCl (Vancocin 25 Mg/Ml (Oral Use)) 500 mg PO Q6 [facility] PRN Reason: Protocol Last Admin: 09/21/17 05:43 Dose: 500 mg Vitamin A (Vitamin A & D Oint Ud Foilpak) 1 ea TOP Q8 PRN PRN Reason: Dry skin Last Admin: 09/17/17 18:41 Dose: 1 ea - Labs Labs: 09/21/17 06:00 09/21/17 06:00 PT 14.5 SECONDS (9.4-12.5) H 09/21/17 06:00 INR 1.26 (0.93-1.08) H 09/21/17 06:00 APTT 32.4 Seconds (25.1-36.5) 09/17/17 05:45
--- NOTE | 2017-09-21 09:58 | CP.PCM.PN ---
<Lisseth Garcia - Last Filed: 09/21/17 09:58> Subjective - Date & Time of Evaluation Date of Evaluation: 09/21/17 Time of Evaluation: 07:50 - Subjective Subjective: Seen and examined at bedside this morning, chart reviewed. No acute overnight events recorded. Patient on G-tube feedings at 10 cc/hr , diarrhea improving reported to have formed stool, flexiseal removed. No overt GI bleeding reported. Objective - Vital Signs/Intake and Output Vital Signs (last 24 hours): Temp Pulse Resp BP Pulse Ox 98.9 F 95 H 27 H 143/95 H 96 09/20/17 16:00 09/21/17 06:30 09/21/17 08:02 09/21/17 06:30 09/21/17 08:02 Intake and Output: 09/21/17 09/21/17 06:59 18:59 Intake Total 350 Output Total 800 Balance -450 - Medications Medications: Current Medications Artificial Tears (Refresh Opth Soln) 0.3 ml OU Q12 PRN PRN Reason: Dry eyes Last Admin: 09/17/17 21:43 Dose: 0.3 ml Budesonide (Pulmicort Respules) 0.5 mg IH [id number] [facility] Last Admin: 09/21/17 07:01 Dose: 0.5 mg Clonidine HCl (Catapres Tts1 0.1 Mg/24 Hr) 1 patch TD Q7D@1000 [facility] Last Admin: 09/15/17 14:50 Dose: 1 patch Folic Acid (Folic Acid) 1 mg NG DAILY [facility] Last Admin: 09/20/17 12:37 Dose: Not Given Heparin Sodium (Porcine) (Heparin) 5,000 units SC Q12 [facility] PRN Reason: Protocol Last Admin: 09/20/17 22:20 Dose: 5,000 units Hydralazine HCl (Apresoline) 10 mg IVP Q6 PRN PRN Reason: BP> 180 Last Admin: 09/20/17 19:22 Dose: 10 mg Levetiracetam 1,000 mg/ Sodium (Chloride) 110 mls @ 460 mls/hr IV Q12 [facility] Last Admin: 09/20/17 22:20 Dose: 460 mls/hr Propofol (Diprivan) 1,000 mg in 100 mls @ 2.062 mls/hr IV .Q24H PRN; Protocol; 5 MCG/KG/MIN PRN Reason: TITRATE PER MD ORDER Last Admin: 09/21/17 01:34 Dose: 30 mcg/kg/min, 12.369 mls/hr Cefazolin Sodium (Ancef 1gm In Ns) 1 gm in 100 mls @ 100 mls/hr IVPB Q12 [facility] PRN Reason: Protocol Last Admin: 09/20/17 22:19 Dose: 100 mls/hr Insulin Detemir (Levemir) 15 unit SC HS [facility] Last Admin: 09/20/17 22:20 Dose: 15 unit Insulin Human Lispro (Humalog High) 0 units SC Q6H [facility] PRN Reason: Protocol Last Admin: 09/21/17 00:49 Dose: Not Given Levalbuterol HCl (Xopenex) 0.63 mg IH [id number] [facility] Last Admin: 09/21/17 07:01 Dose: 0.63 mg Lorazepam (Ativan) 2 mg IVP Q3H PRN; Protocol PRN Reason: Agitation Last Admin: 09/14/17 10:15 Dose: 2 mg Multivitamins/Vitamin C (Multi-Delyn Liquid) 15 ml PO 0800 [facility] Last Admin: 09/20/17 12:37 Dose: Not Given Pantoprazole Sodium (Protonix Inj) 40 mg IVP Q12 [facility] Last Admin: 09/20/17 22:27 Dose: 40 mg Thiamine HCl (Vitamin B1 Inj) 100 mg IV DAILY [facility] Last Admin: 09/20/17 12:38 Dose: 100 mg Tobramycin/Dexamethasone (Tobradex Opht Susp) 0 ml OU QID [facility] Last Admin: 09/20/17 22:29 Dose: 1 drop Vancomycin HCl (Vancocin 25 Mg/Ml (Oral Use)) 500 mg PO Q6 [facility] PRN Reason: Protocol Last Admin: 09/21/17 05:43 Dose: 500 mg Vitamin A (Vitamin A & D Oint Ud Foilpak) 1 ea TOP Q8 PRN PRN Reason: Dry skin Last Admin: 09/17/17 18:41 Dose: 1 ea - Labs Labs: 09/21/17 06:00 09/21/17 06:00 PT 14.5 SECONDS (9.4-12.5) H 09/21/17 06:00 INR 1.26 (0.93-1.08) H 09/21/17 06:00 APTT 32.4 Seconds (25.1-36.5) 09/17/17 05:45 - Constitutional Appears: No Acute Distress - Eye Exam Eye Exam: Normal appearance. absent: Scleral icterus - ENT Exam ENT Exam: Mucous Membranes Moist - Respiratory Exam Respiratory Exam: NORMAL BREATHING PATTERN. absent: Respiratory Distress Additional comments: (+) trache - Cardiovascular Exam Cardiovascular Exam: +S1, +S2 - GI/Abdominal Exam GI & Abdominal Exam: Soft, Normal Bowel Sounds. absent: Guarding, Tenderness, Rebound Additional comments: (+) G-tube, sarah to mid abdomen, [employer] and dry and intact. - Neurological Exam Neurological Exam: Alert, Awake - Skin Skin Exam: Dry, Warm Assessment and Plan - Assessment and Plan (Free Text) Assessment: Assessment: Respiratory failure, status post trach and G-tube Anemia, status post endoscopy found to have LA grade a esophagitis grade D/ esophageal ulcers Status postcardiac arrest S/P Acute pancreatitis secondary to EtOH C. difficile colitis Elevated LFTs, which are showing a downward trend, multifactoral: medication induced,shock liver, ETOH(hepatitis panel negative) Seizure disorder Acute kidney injury Plan: G-tube feeding as per surgery Monitor LFTs which are improving continue Protonix twice a day On IV antibiotics on oral Vancomycin monitor H/H, overt GI bleeding, transfuse as necessary Monitor electrolytes On DVT prophylaxis, subcutaneous heparin Seen and discussed with Dr. Fernandez <Yogi Fernandez V - Last Filed: 09/21/17 19:55> Objective - Vital Signs/Intake and Output Vital Signs (last 24 hours): Temp Pulse Resp BP Pulse Ox 98.9 F 110 H 31 H 182/112 H 71 L 09/20/17 16:00 09/21/17 19:04 09/21/17 16:00 09/21/17 19:04 09/21/17 17:30 Intake and Output: 09/21/17 09/22/17 18:59 06:59 Intake Total 640 Output Total 950 Balance -310 - Medications Medications: Current Medications Artificial Tears (Refresh Opth Soln) 0.3 ml OU Q12 PRN PRN Reason: Dry eyes Last Admin: 09/17/17 21:43 Dose: 0.3 ml Budesonide (Pulmicort Respules) 0.5 mg IH [id number] [facility] Last Admin: 09/21/17 07:01 Dose: 0.5 mg Clonidine HCl (Catapres Tts1 0.1 Mg/24 Hr) 1 patch TD Q7D@1000 [facility] Last Admin: 09/15/17 14:50 Dose: 1 patch Folic Acid (Folic Acid) 1 mg NG DAILY [facility] Last Admin: 09/21/17 10:49 Dose: 1 mg Heparin Sodium (Porcine) (Heparin) 5,000 units SC Q12 [facility] PRN Reason: Protocol Last Admin: 09/21/17 10:00 Dose: 5,000 units Hydralazine HCl (Apresoline) 10 mg IVP Q6 PRN PRN Reason: BP> 180 Last Admin: 09/21/17 19:04 Dose: 10 mg Levetiracetam 1,000 mg/ Sodium (Chloride) 110 mls @ 460 mls/hr IV Q12 [facility] Last Admin: 09/21/17 09:35 Dose: 460 mls/hr Propofol (Diprivan) 1,000 mg in 100 mls @ 2.062 mls/hr IV .Q24H PRN; Protocol; 5 MCG/KG/MIN PRN Reason: TITRATE PER MD ORDER Last Admin: 09/21/17 10:47 Dose: 30 mcg/kg/min, 12.369 mls/hr Cefazolin Sodium (Ancef 1gm In Ns) 1 gm in 100 mls @ 100 mls/hr IVPB Q12 [facility] PRN Reason: Protocol Last Admin: 09/21/17 10:51 Dose: 100 mls/hr Insulin Detemir (Levemir) 15 unit SC HS [facility] Last Admin: 09/20/17 22:20 Dose: 15 unit Insulin Human Lispro (Humalog High) 0 units SC Q6H [facility] PRN Reason: Protocol Last Admin: 09/21/17 18:48 Dose: 2 units Levalbuterol HCl (Xopenex) 0.63 mg IH [id number] [facility] Last Admin: 09/21/17 13:58 Dose: 0.63 mg Lorazepam (Ativan) 2 mg IVP Q3H PRN; Protocol PRN Reason: Agitation Last Admin: 09/14/17 10:15 Dose: 2 mg Multivitamins/Vitamin C (Multi-Delyn Liquid) 15 ml PO 0800 [facility] Last Admin: 09/21/17 09:45 Dose: 15 ml Pantoprazole Sodium (Protonix Inj) 40 mg IVP Q12 [facility] Last Admin: 09/21/17 09:50 Dose: 40 mg Thiamine HCl (Vitamin B1 Inj) 100 mg IV DAILY [facility] Last Admin: 09/21/17 18:43 Dose: 100 mg Tobramycin/Dexamethasone (Tobradex Opht Susp) 0 ml OU QID [facility] Last Admin: 09/21/17 18:42 Dose: 1 drop Vancomycin HCl (Vancocin 25 Mg/Ml (Oral Use)) 500 mg PO Q6 [facility] PRN Reason: Protocol Last Admin: 09/21/17 18:43 Dose: 500 mg Vitamin A (Vitamin A & D Oint Ud Foilpak) 1 ea TOP Q8 PRN PRN Reason: Dry skin Last Admin: 09/17/17 18:41 Dose: 1 ea - Labs Labs: 09/21/17 06:00 09/21/17 06:00 PT 14.5 SECONDS (9.4-12.5) H 09/21/17 06:00 INR 1.26 (0.93-1.08) H 09/21/17 06:00 APTT 32.4 Seconds (25.1-36.5) 09/17/17 05:45 Attending/Attestation - Attestation I have personally seen and examined this patient.: Yes I have fully participated in the care of the patient.: Yes I have reviewed all pertinent clinical information, including history, physical exam and plan: Yes Notes (Text): This is an addendum to GI progress report dictated by Lisseth Garcia APN.The patient was seen and examined earlier. Medical records, lab studies, imagings were reviewed. Last 24 hours events reviewed. Agreed with the above treatment plan as outlined in Lisseth Garcia APN's notes the with the addition of the following Patient more alert G-tube feeding in progress Anemia and drop in blood count LA grade D esophagitis with the ulceration extending up to 5 cm long Abdomen soft G-tube in place Follow hemoglobin and hematocrit and transfuse as needed High-dose PPI Abnormal LFTs improving follow-up 09/21/17 19:53
--- NOTE | 2017-09-21 10:00 | CP.PCM.PN ---
Subjective - Date & Time of Evaluation Date of Evaluation: 09/21/17 Time of Evaluation: 09:30 - Subjective Subjective: Comfortable on the ventilator, no fevers, now without rectal tube, stools are soft and not watery anymore. Objective - Vital Signs/Intake and Output Vital Signs (last 24 hours): Temp Pulse Resp BP Pulse Ox 98.9 F 87 27 H 155/97 H 98 09/20/17 16:00 09/21/17 02:00 09/20/17 20:23 09/20/17 23:00 09/20/17 23:00 Intake and Output: 09/20/17 09/21/17 18:59 06:59 Intake Total 300 100 Output Total 800 Balance -500 100 - Medications Medications: Current Medications Artificial Tears (Refresh Opth Soln) 0.3 ml OU Q12 PRN PRN Reason: Dry eyes Last Admin: 09/17/17 21:43 Dose: 0.3 ml Budesonide (Pulmicort Respules) 0.5 mg IH [id number] [facility] Last Admin: 09/20/17 21:02 Dose: 0.5 mg Clonidine HCl (Catapres Tts1 0.1 Mg/24 Hr) 1 patch TD Q7D@1000 [facility] Last Admin: 09/15/17 14:50 Dose: 1 patch Folic Acid (Folic Acid) 1 mg NG DAILY [facility] Last Admin: 09/20/17 12:37 Dose: Not Given Heparin Sodium (Porcine) (Heparin) 5,000 units SC Q12 [facility] PRN Reason: Protocol Last Admin: 09/20/17 22:20 Dose: 5,000 units Hydralazine HCl (Apresoline) 10 mg IVP Q6 PRN PRN Reason: BP> 180 Last Admin: 09/20/17 19:22 Dose: 10 mg Levetiracetam 1,000 mg/ Sodium (Chloride) 110 mls @ 460 mls/hr IV Q12 [facility] Last Admin: 09/20/17 22:20 Dose: 460 mls/hr Propofol (Diprivan) 1,000 mg in 100 mls @ 2.062 mls/hr IV .Q24H PRN; Protocol; 5 MCG/KG/MIN PRN Reason: TITRATE PER MD ORDER Last Admin: 09/21/17 01:34 Dose: 30 mcg/kg/min, 12.369 mls/hr Cefazolin Sodium (Ancef 1gm In Ns) 1 gm in 100 mls @ 100 mls/hr IVPB Q12 [facility] PRN Reason: Protocol Last Admin: 09/20/17 22:19 Dose: 100 mls/hr Insulin Detemir (Levemir) 15 unit SC HS [facility] Last Admin: 09/20/17 22:20 Dose: 15 unit Insulin Human Lispro (Humalog High) 0 units SC Q6H [facility] PRN Reason: Protocol Last Admin: 09/21/17 00:49 Dose: Not Given Levalbuterol HCl (Xopenex) 0.63 mg IH [id number] [facility] Last Admin: 09/20/17 21:02 Dose: 0.63 mg Lorazepam (Ativan) 2 mg IVP Q3H PRN; Protocol PRN Reason: Agitation Last Admin: 09/14/17 10:15 Dose: 2 mg Multivitamins/Vitamin C (Multi-Delyn Liquid) 15 ml PO 0800 [facility] Last Admin: 09/20/17 12:37 Dose: Not Given Pantoprazole Sodium (Protonix Inj) 40 mg IVP Q12 [facility] Last Admin: 09/20/17 22:27 Dose: 40 mg Thiamine HCl (Vitamin B1 Inj) 100 mg IV DAILY [facility] Last Admin: 09/20/17 12:38 Dose: 100 mg Tobramycin/Dexamethasone (Tobradex Opht Susp) 0 ml OU QID [facility] Last Admin: 09/20/17 22:29 Dose: 1 drop Vancomycin HCl (Vancocin 25 Mg/Ml (Oral Use)) 500 mg PO Q6 [facility] PRN Reason: Protocol Last Admin: 09/21/17 05:43 Dose: 500 mg Vitamin A (Vitamin A & D Oint Ud Foilpak) 1 ea TOP Q8 PRN PRN Reason: Dry skin Last Admin: 09/17/17 18:41 Dose: 1 ea - Labs Labs: 09/20/17 06:00 09/20/17 06:00 PT 14.5 SECONDS (9.4-12.5) H 09/20/17 06:00 INR 1.26 (0.93-1.08) H 09/20/17 06:00 APTT 32.4 Seconds (25.1-36.5) 09/17/17 05:45 - Constitutional Appears: Chronically Ill, Other (on the ventilator) - Head Exam Head Exam: NORMAL INSPECTION - ENT Exam Additional comments: tracheostomy tube in place - Neck Exam Neck Exam: absent: Meningismus - Respiratory Exam Respiratory Exam: Decreased Breath Sounds - Cardiovascular Exam Cardiovascular Exam: +S1, +S2 - GI/Abdominal Exam GI & Abdominal Exam: Soft. absent: Tenderness Additional comments: gastrostomy tube in place Assessment and Plan - Assessment and Plan (Free Text) Plan: Assessment VDRF (now with tracheostomy) with severe sepsis with renal failure due to C. diff. associated diarrhea on top of acute alcoholic pancreatitis, with possible HCAP with E. coli in the sputum, clinically improving S/P gastrostomy tube placement Thrombocytopenia with alcoholic liver disease DM HTN Plan continue PO Vancomycin day 12 for 14 days and we can d/c IV Flagyl since the stools are now soft and not watery repeat blood cx is negative, sputum cx is showing E. coli - continue Cefazolin to complete 4-7 days (day 5 today) will continue to monitor clinically
--- NOTE | 2017-09-21 10:11 | CP.PCM.PN ---
<Hailey Tubbs - Last Filed: 09/21/17 10:22> Subjective - Date & Time of Evaluation Date of Evaluation: 09/21/17 Time of Evaluation: 10:08 - Subjective Subjective: ICU Progress Note, Светлана Carrizales PGY2 Patient seen and examined at bedside. Patient is awake and alert as well as following commands. There were no acute overnight events. He denies chest pain, shortness of breath, nausea/vomiting/diarrhea, fever or chills. He reports having pain, but is unable to specify where. Objective - Vital Signs/Intake and Output Vital Signs (last 24 hours): Temp Pulse Resp BP Pulse Ox 98.9 F 95 H 27 H 143/95 H 96 09/20/17 16:00 09/21/17 06:30 09/21/17 08:02 09/21/17 06:30 09/21/17 08:02 Intake and Output: 09/21/17 09/21/17 06:59 18:59 Intake Total 350 Output Total 800 Balance -450 - Medications Medications: Current Medications Artificial Tears (Refresh Opth Soln) 0.3 ml OU Q12 PRN PRN Reason: Dry eyes Last Admin: 09/17/17 21:43 Dose: 0.3 ml Budesonide (Pulmicort Respules) 0.5 mg IH [id number] [facility] Last Admin: 09/21/17 07:01 Dose: 0.5 mg Clonidine HCl (Catapres Tts1 0.1 Mg/24 Hr) 1 patch TD Q7D@1000 [facility] Last Admin: 09/15/17 14:50 Dose: 1 patch Folic Acid (Folic Acid) 1 mg NG DAILY [facility] Last Admin: 09/20/17 12:37 Dose: Not Given Heparin Sodium (Porcine) (Heparin) 5,000 units SC Q12 [facility] PRN Reason: Protocol Last Admin: 09/20/17 22:20 Dose: 5,000 units Hydralazine HCl (Apresoline) 10 mg IVP Q6 PRN PRN Reason: BP> 180 Last Admin: 09/20/17 19:22 Dose: 10 mg Levetiracetam 1,000 mg/ Sodium (Chloride) 110 mls @ 460 mls/hr IV Q12 [facility] Last Admin: 09/20/17 22:20 Dose: 460 mls/hr Propofol (Diprivan) 1,000 mg in 100 mls @ 2.062 mls/hr IV .Q24H PRN; Protocol; 5 MCG/KG/MIN PRN Reason: TITRATE PER MD ORDER Last Admin: 09/21/17 01:34 Dose: 30 mcg/kg/min, 12.369 mls/hr Cefazolin Sodium (Ancef 1gm In Ns) 1 gm in 100 mls @ 100 mls/hr IVPB Q12 [facility] PRN Reason: Protocol Last Admin: 09/20/17 22:19 Dose: 100 mls/hr Insulin Detemir (Levemir) 15 unit SC HS [facility] Last Admin: 09/20/17 22:20 Dose: 15 unit Insulin Human Lispro (Humalog High) 0 units SC Q6H [facility] PRN Reason: Protocol Last Admin: 09/21/17 00:49 Dose: Not Given Levalbuterol HCl (Xopenex) 0.63 mg IH [id number] [facility] Last Admin: 09/21/17 07:01 Dose: 0.63 mg Lorazepam (Ativan) 2 mg IVP Q3H PRN; Protocol PRN Reason: Agitation Last Admin: 09/14/17 10:15 Dose: 2 mg Multivitamins/Vitamin C (Multi-Delyn Liquid) 15 ml PO 0800 [facility] Last Admin: 09/20/17 12:37 Dose: Not Given Pantoprazole Sodium (Protonix Inj) 40 mg IVP Q12 [facility] Last Admin: 09/20/17 22:27 Dose: 40 mg Thiamine HCl (Vitamin B1 Inj) 100 mg IV DAILY [facility] Last Admin: 09/20/17 12:38 Dose: 100 mg Tobramycin/Dexamethasone (Tobradex Opht Susp) 0 ml OU QID [facility] Last Admin: 09/20/17 22:29 Dose: 1 drop Vancomycin HCl (Vancocin 25 Mg/Ml (Oral Use)) 500 mg PO Q6 [facility] PRN Reason: Protocol Last Admin: 09/21/17 05:43 Dose: 500 mg Vitamin A (Vitamin A & D Oint Ud Foilpak) 1 ea TOP Q8 PRN PRN Reason: Dry skin Last Admin: 09/17/17 18:41 Dose: 1 ea - Labs Labs: 09/21/17 06:00 09/21/17 06:00 PT 14.5 SECONDS (9.4-12.5) H 09/21/17 06:00 INR 1.26 (0.93-1.08) H 09/21/17 06:00 APTT 32.4 Seconds (25.1-36.5) 09/17/17 05:45 - Constitutional Appears: No Acute Distress - Head Exam Head Exam: ATRAUMATIC, NORMAL INSPECTION, NORMOCEPHALIC - Eye Exam Eye Exam: Normal appearance, PERRL Pupil Exam: NORMAL ACCOMODATION, PERRL - ENT Exam ENT Exam: Mucous Membranes Moist Additional comments: trach in place - Respiratory Exam Respiratory Exam: Clear to Ausculation Bilateral. absent: Rales, Rhonchi, Wheezes - Cardiovascular Exam Cardiovascular Exam: REGULAR RHYTHM, +S1, +S2. absent: Gallop, Rubs, Murmur - GI/Abdominal Exam GI & Abdominal Exam: Soft, Normal Bowel Sounds. absent: Tenderness, Mass, Rebound Additional comments: peg - Extremities Exam Extremities Exam: Pedal Edema - Neurological Exam Neurological Exam: Alert, Awake, CN II-XII Intact - Skin Skin Exam: Dry, Warm Assessment and Plan - Assessment and Plan (Free Text) Assessment: This is 47yo male with past medical history with DM, HTN, and EtOH abuse admitted for septic shock secondary to pancreatitis, aspiration pneumonia, IRWIN, seizures, thrombocytopenia (from EtOH), cardiac arrest s/p ROSC with resp failure. Patient is s/p trach and peg POD#2. Plan: Neuro: Awake and alert with trach, on Propofol Continue Keppra Ativan prn Neuro consulted- recs appreciated Continue Seizure precautions Maintain normothemia CV: Cardiac arrest s/p ROSC HD stable Cardio consulted- recs appreciated Maintain MAP >65 Clonidine patch weekly, hydralazine prn Monitor I&O Pulm: s/p trach POD #2 Pt now on PS Maintain SpO2>92% Protective lung ventilation strategy- HOB elevated- aspiration precaution Pulm consulted- recs appreciated Continue Xopenex, Pulmicort GI: s/p peg tube - patient is now on tube feeds Pancreatitis resolved and transaminitis resolved EGD showed esophageal ulcer Continue Folic acid, multivitamin, thiamine Protonix GI consulted- recs appreciated Surg consulted- recs appreciated Heme: Anemia- hgb stable Hgb 7.5 (was 7.6) Transfusion threshold is 7.0 Will continue to monitor H/H Nephro: As per nephro- no place for HD Cr stable no HD- pt has good urine output Maintain euvolemia Monitor I&O Nephro consulted- recs appreciated ID: C Diff positive- treatment on day 12 out of 14 As per ID- will d/c contact precautions after finished treatment Afebrile, leukocytosis trending down ID consulted- recs appreciated Trach culture: E Coli Repeat blood and urine negative, HIV, Strep, and legionella negative Vancocin PO, Flagyl q8, Ancef Endo: Hx of DM ISS high Levemir 15uhs Maintain euglycemia 140-180s GI ppx: Protonix 40mg DVT ppx: Heparin SC Diet: tube feeds Dispo: Palliative care consulted. Patient pending transfer to LTAC Case seen, discussed and reviewed with attending. Светлана Tubbs PGY2 <Hasmukh Miller B - Last Filed: 09/21/17 18:13> Objective - Vital Signs/Intake and Output Vital Signs (last 24 hours): Temp Pulse Resp BP Pulse Ox 98.9 F 97 H 31 H 182/108 H 71 L 09/20/17 16:00 09/21/17 17:22 09/21/17 16:00 09/21/17 17:30 09/21/17 17:30 Intake and Output: 09/21/17 09/21/17 06:59 18:59 Intake Total 350 100 Output Total 800 Balance -450 100 - Medications Medications: Current Medications Artificial Tears (Refresh Opth Soln) 0.3 ml OU Q12 PRN PRN Reason: Dry eyes Last Admin: 09/17/17 21:43 Dose: 0.3 ml Budesonide (Pulmicort Respules) 0.5 mg IH [id number] [facility] Last Admin: 09/21/17 07:01 Dose: 0.5 mg Clonidine HCl (Catapres Tts1 0.1 Mg/24 Hr) 1 patch TD Q7D@1000 [facility] Last Admin: 09/15/17 14:50 Dose: 1 patch Folic Acid (Folic Acid) 1 mg NG DAILY [facility] Last Admin: 09/21/17 10:49 Dose: 1 mg Heparin Sodium (Porcine) (Heparin) 5,000 units SC Q12 [facility] PRN Reason: Protocol Last Admin: 09/20/17 22:20 Dose: 5,000 units Hydralazine HCl (Apresoline) 10 mg IVP Q6 PRN PRN Reason: BP> 180 Last Admin: 09/20/17 19:22 Dose: 10 mg Levetiracetam 1,000 mg/ Sodium (Chloride) 110 mls @ 460 mls/hr IV Q12 [facility] Last Admin: 09/20/17 22:20 Dose: 460 mls/hr Propofol (Diprivan) 1,000 mg in 100 mls @ 2.062 mls/hr IV .Q24H PRN; Protocol; 5 MCG/KG/MIN PRN Reason: TITRATE PER MD ORDER Last Admin: 09/21/17 10:47 Dose: 30 mcg/kg/min, 12.369 mls/hr Cefazolin Sodium (Ancef 1gm In Ns) 1 gm in 100 mls @ 100 mls/hr IVPB Q12 [facility] PRN Reason: Protocol Last Admin: 09/21/17 10:51 Dose: 100 mls/hr Insulin Detemir (Levemir) 15 unit SC HS [facility] Last Admin: 09/20/17 22:20 Dose: 15 unit Insulin Human Lispro (Humalog High) 0 units SC Q6H [facility] PRN Reason: Protocol Last Admin: 09/21/17 13:18 Dose: Not Given Levalbuterol HCl (Xopenex) 0.63 mg IH [id number] [facility] Last Admin: 09/21/17 13:58 Dose: 0.63 mg Lorazepam (Ativan) 2 mg IVP Q3H PRN; Protocol PRN Reason: Agitation Last Admin: 09/14/17 10:15 Dose: 2 mg Multivitamins/Vitamin C (Multi-Delyn Liquid) 15 ml PO 0800 [facility] Last Admin: 09/20/17 12:37 Dose: Not Given Pantoprazole Sodium (Protonix Inj) 40 mg IVP Q12 [facility] Last Admin: 09/20/17 22:27 Dose: 40 mg Thiamine HCl (Vitamin B1 Inj) 100 mg IV DAILY [facility] Last Admin: 09/20/17 12:38 Dose: 100 mg Tobramycin/Dexamethasone (Tobradex Opht Susp) 0 ml OU QID [facility] Last Admin: 09/21/17 09:40 Dose: 1 drop Vancomycin HCl (Vancocin 25 Mg/Ml (Oral Use)) 500 mg PO Q6 [facility] PRN Reason: Protocol Last Admin: 09/21/17 13:16 Dose: 500 mg Vitamin A (Vitamin A & D Oint Ud Foilpak) 1 ea TOP Q8 PRN PRN Reason: Dry skin Last Admin: 09/17/17 18:41 Dose: 1 ea - Labs Labs: 09/21/17 06:00 09/21/17 06:00 PT 14.5 SECONDS (9.4-12.5) H 09/21/17 06:00 INR 1.26 (0.93-1.08) H 09/21/17 06:00 APTT 32.4 Seconds (25.1-36.5) 09/17/17 05:45 Attending/Attestation - Attestation I have personally seen and examined this patient.: Yes I have fully participated in the care of the patient.: Yes I have reviewed all pertinent clinical information, including history, physical exam and plan: Yes Notes (Text): 09/21/17 18:[address] Miller's note
[2017-09-21] MEDS: ceFAZolin 1 gm in NS 1 GM/100 ML BAG IVPB SCH ×2 (10:51→21:40)
--- NOTE | 2017-09-21 13:10 | RAD ---
HISTORY: intubated on vent COMPARISON: Portable chest 09/20/2017. FINDINGS: Endotracheal tube and right central venous line are unchanged in position. LUNGS: No definite active pulmonary disease is appreciable bilaterally. PLEURA: No significant pleural effusion identified, no pneumothorax apparent. CARDIOVASCULAR: Normal. OSSEOUS STRUCTURES: No significant abnormalities. VISUALIZED UPPER ABDOMEN: Normal. OTHER FINDINGS: None. IMPRESSION: No definitive acute cardiopulmonary is appreciable at this time. Follow-up arrested radiography as clinically warranted.
--- NOTE | 2017-09-21 14:13 | CP.PCM.PN ---
Subjective - Date & Time of Evaluation Date of Evaluation: 09/21/17 Time of Evaluation: 14:10 - Subjective Subjective: Mr. Aguero was seen and examined at the bedside in ICU. He is alert able to communicated using non-verbal cues such as nodding and shaking his head. He is able to form words in his mouth without sound. He is able to follow commands. He has the trach and peg placed yesterday tolerating well, remains with sedation drip of propofol. There was no untoward events overnight. Objective - Vital Signs/Intake and Output Vital Signs (last 24 hours): Temp Pulse Resp BP Pulse Ox 98.9 F 74 33 H 165/94 H 99 09/20/17 16:00 09/21/17 12:45 09/21/17 10:19 09/21/17 12:45 09/21/17 12:45 Intake and Output: 09/21/17 09/21/17 06:59 18:59 Intake Total 350 100 Output Total 800 Balance -450 100 - Medications Medications: Current Medications Artificial Tears (Refresh Opth Soln) 0.3 ml OU Q12 PRN PRN Reason: Dry eyes Last Admin: 09/17/17 21:43 Dose: 0.3 ml Budesonide (Pulmicort Respules) 0.5 mg IH [id number] [facility] Last Admin: 09/21/17 07:01 Dose: 0.5 mg Clonidine HCl (Catapres Tts1 0.1 Mg/24 Hr) 1 patch TD Q7D@1000 [facility] Last Admin: 09/15/17 14:50 Dose: 1 patch Folic Acid (Folic Acid) 1 mg NG DAILY [facility] Last Admin: 09/21/17 10:49 Dose: 1 mg Heparin Sodium (Porcine) (Heparin) 5,000 units SC Q12 [facility] PRN Reason: Protocol Last Admin: 09/20/17 22:20 Dose: 5,000 units Hydralazine HCl (Apresoline) 10 mg IVP Q6 PRN PRN Reason: BP> 180 Last Admin: 09/20/17 19:22 Dose: 10 mg Levetiracetam 1,000 mg/ Sodium (Chloride) 110 mls @ 460 mls/hr IV Q12 [facility] Last Admin: 09/20/17 22:20 Dose: 460 mls/hr Propofol (Diprivan) 1,000 mg in 100 mls @ 2.062 mls/hr IV .Q24H PRN; Protocol; 5 MCG/KG/MIN PRN Reason: TITRATE PER MD ORDER Last Admin: 09/21/17 10:47 Dose: 30 mcg/kg/min, 12.369 mls/hr Cefazolin Sodium (Ancef 1gm In Ns) 1 gm in 100 mls @ 100 mls/hr IVPB Q12 [facility] PRN Reason: Protocol Last Admin: 09/21/17 10:51 Dose: 100 mls/hr Insulin Detemir (Levemir) 15 unit SC HS [facility] Last Admin: 09/20/17 22:20 Dose: 15 unit Insulin Human Lispro (Humalog High) 0 units SC Q6H [facility] PRN Reason: Protocol Last Admin: 09/21/17 13:18 Dose: Not Given Levalbuterol HCl (Xopenex) 0.63 mg IH [id number] [facility] Last Admin: 09/21/17 13:58 Dose: 0.63 mg Lorazepam (Ativan) 2 mg IVP Q3H PRN; Protocol PRN Reason: Agitation Last Admin: 09/14/17 10:15 Dose: 2 mg Multivitamins/Vitamin C (Multi-Delyn Liquid) 15 ml PO 0800 [facility] Last Admin: 09/20/17 12:37 Dose: Not Given Pantoprazole Sodium (Protonix Inj) 40 mg IVP Q12 [facility] Last Admin: 09/20/17 22:27 Dose: 40 mg Thiamine HCl (Vitamin B1 Inj) 100 mg IV DAILY [facility] Last Admin: 09/20/17 12:38 Dose: 100 mg Tobramycin/Dexamethasone (Tobradex Opht Susp) 0 ml OU QID [facility] Last Admin: 09/21/17 09:40 Dose: 1 drop Vancomycin HCl (Vancocin 25 Mg/Ml (Oral Use)) 500 mg PO Q6 [facility] PRN Reason: Protocol Last Admin: 09/21/17 13:16 Dose: 500 mg Vitamin A (Vitamin A & D Oint Ud Foilpak) 1 ea TOP Q8 PRN PRN Reason: Dry skin Last Admin: 09/17/17 18:41 Dose: 1 ea - Labs Labs: 09/21/17 06:00 09/21/17 06:00 PT 14.5 SECONDS (9.4-12.5) H 09/21/17 06:00 INR 1.26 (0.93-1.08) H 09/21/17 06:00 APTT 32.4 Seconds (25.1-36.5) 09/17/17 05:45 - Constitutional Appears: No Acute Distress - Head Exam Head Exam: NORMAL INSPECTION - Neurological Exam Neurological Exam: Alert, Awake Neuro motor strength exam: Left Upper Extremity: 2/1, Right Upper Extremity: 2/1 , Left Lower Extremity: 2/1, Right Lower Extremity: 2/1 Additional comments: Neurological improved from previous examination, He is able to show two fingers , follow simple commands. Sensation remains intact. Assessment and Plan (1) Seizure Assessment & Plan: Case discussed with Dr. roman, continue all current medical regimen. Recommend physical, occupational therapies. Status: Acute
[2017-09-21 15:30] LABS: ARTERIAL BLOOD GAS HCO3 18.2 mmol/L (21-28); ARTERIAL BLOOD GAS HEMOGLOBIN 8.3 g/dL (11.7-17.4); ARTERIAL BLOOD GAS O2 CAPACITY 11.5 mL/dl (16-24); ARTERIAL BLOOD GAS O2 CONTENT 11.4 ML/dl (15-23); ARTERIAL BLOOD GAS O2 SAT 99.3 % (95-98); ARTERIAL BLOOD GAS PCO2 33 mm/Hg (35-45); ARTERIAL BLOOD GAS PH 7.35 (7.35-7.45); ARTERIAL BLOOD GAS TCO2 19.2 mmol.L (22-28)
--- NOTE | 2017-09-21 16:18 | PN ---
DATE: SUBJECTIVE: The patient is seen and examined at bedside. He is alert, awake, following commands, comfortable, sitting in the chair. PHYSICAL EXAMINATION: VITAL SIGNS: He tolerates pressure support at 8/5 with FiO2 of 35%. Blood pressure 154/103, heart rate 108, oxygen saturation 98%, respiratory rate varies between 20 and 37. It might be related to the patient's anxiety. HEENT: Head and neck atraumatic. LUNGS: Coarse rhonchi bilaterally. HEART: Regular rate and rhythm. S1 and S2 normal. ABDOMEN: Soft, nontender and nondistended. MUSCULOSKELETAL: The patient has trace to 1+ bilateral pedal and ankle edema. NEUROLOGIC: The patient moves all extremities spontaneously. The right side appears to be somewhat weaker than the left one. SKIN: Moist. PSYCHIATRIC: The patient is following commands. Appears to be depressed a little bit. The patient tolerates enteral nutrition well at 10 mL/hour. LABORATORY DATA: WBC 11.8, down from 16.9; hemoglobin 7.5; platelet count 209. Sodium 149, potassium 3.7, chloride 116, carbon dioxide 22, BUN 28, creatinine 1.7, which is plateaued. Glucose 143. Blood gas prior to putting the patient on pressure support 7.43/30/13 on 35% FiO2. MEDICATIONS: Cefazolin, budesonide inhaler, clonidine patch, Aranesp, eyedrops, folic acid, heparin subcu, hydralazine p.r.n., Levemir, regular insulin sliding scale high protocol, Keppra, Xopenex every 6 hours, multivitamins, Protonix, vancomycin, thiamine. Chest x-ray: No definitive acute cardiopulmonary disease is appreciated at this time. 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 He did pretty well considering everything that he went through. The patient is in the chair, following commands, appears to be comfortable. He has flat affect and I will call psych eval as psychiatric disorders such as depression and anxiety are very common after anoxic brain injury events. The patient is slightly hypertensive and he was started on antihypertensive regimen. He is tolerating pressure support 8/5 and we will follow arterial blood gas to assess his ventilatory and gas exchange parameters. Aggressive pulmonary toilet , bronchodilators, chest PT, PT, OOB to chair daily. Once off of PPV, will advance oral nutrition and hydration if passed swallow eval. We will continue with deep venous thrombosis, gastrointestinal prophylaxis. The patient is off sedation. His renal function plateaued. Will continue with conservative fluid management to optimize respiratory status. He does not require dialysis at present time. We will put PICC and remove old CVL The patient's white cell count is going down and he is afebrile. We will continue with deep venous thrombosis and gastrointestinal prophylaxis. Addendum: AB.35/33/113 (on 03/17/35%) ccm time 40 min Hasmukh Miller MD MTDD
[2017-09-21] MEDS: Thiamine 100 mg/ml Inj IV SCH (18:43)
[2017-09-21] MEDS: Insulin Detemir 100 units/ml Vial (Levemir) SC SCH (22:37)
[2017-09-22] MEDS: Insulin Lispro (HUMAlog) HIGH Coverage SC SCH ×4 (00:41→23:18)
[2017-09-22] MEDS: Vancomycin 25 MG/ML PO SCH ×5 (00:43→23:16)
[2017-09-22] MEDS: Levalbuterol 0.63 MG/3 ML Inhal Soln UD IH SCH ×4 (01:55→19:01)
[2017-09-22] MEDS: Propofol 10 mg/ml 1,000 MG/100 ML VIAL IV PRN (02:32)
[2017-09-22 06:36] LABS: BASO # 0.07 K/mm3 (0.0-2.0); BASO % 0.8 % (0.0-3.0); EOS % 0.3 % (1.5-5.0); GRAN # 5.61 (1.4-6.5); GRAN % 63.8 % (50.0-68.0); LYMPH # 2.2 (1.2-3.4); LYMPH % 25.3 % (22.0-35.0); MEAN CELL VOLUME 97.2 fl (80.0-105.0); MEAN CORPUSCULAR HEMOGLOBIN 30.8 pg (25.0-35.0); MEAN CORPUSCULAR HGB CONC 31.7 g/dl (31.0-37.0); MEAN PLATELET VOLUME 10.5 fl (7.0-11.0); MONO # 0.9 (0.1-0.6); MONO % 9.8 % (1.0-6.0); RBC 2.5 10^6/uL (3.5-6.1); RED CELL DISTRIBUTION WIDTH 17.7 % (11.5-14.5); WHITE BLOOD COUNT 8.8 10^3/ul (4.5-11.0)
[2017-09-22 06:38] LABS: HEMOGLOBIN 7.7 g/dL (14.0-18.0)
[2017-09-22 06:43] LABS: INR 1.2 (0.93-1.08); PROTHROMBIN TIME 13.8 SECONDS (9.4-12.5)
[2017-09-22 06:50] LABS: ALB/GLOB RATIO 0.6 (1.1-1.8); ALBUMIN 2.5 g/dL (3.0-4.8); ALT/SGPT 21 U/L (7-56); AST/SGOT 26 U/L (17-59); BLOOD UREA NITROGEN 22 mg/dL (7-21); GFR AFRICAN-AMERICAN > 60; GFR NON-AFRICAN AMERICAN 59; MAGNESIUM 1.5 mg/dL (1.7-2.2)
[2017-09-22 07:13] LABS: ARTERIAL BLOOD GAS HCO3 18.8 mmol/L (21-28); ARTERIAL BLOOD GAS HEMOGLOBIN 7.9 g/dL (11.7-17.4); ARTERIAL BLOOD GAS O2 CAPACITY 11.1 mL/dl (16-24); ARTERIAL BLOOD GAS O2 CONTENT 11.1 ML/dl (15-23); ARTERIAL BLOOD GAS O2 SAT 99.8 % (95-98); ARTERIAL BLOOD GAS PCO2 34 mm/Hg (35-45); ARTERIAL BLOOD GAS PH 7.35 (7.35-7.45); ARTERIAL BLOOD GAS TCO2 19.8 mmol.L (22-28)
[2017-09-22] MEDS: Budesonide 0.5 mg/2 ml Inhal Susp UD IH SCH ×2 (07:54→19:01)
[2017-09-22] MEDS ORDERED: Magnesium Sulfate 1 gm in D5W 1 GM/100 ML BAG IVPB ONE (07:57)
[2017-09-22] MEDS: Multi Vitamins 15 mL UD Oral Solution PO SCH (08:44)
[2017-09-22] MEDS: levETIRAcetam 1,000 MG in Sodium Chloride 0.9% 100 ML IV SCH ×2 (09:55→21:41)
[2017-09-22] MEDS: ceFAZolin 1 gm in NS 1 GM/100 ML BAG IVPB SCH ×2 (09:55→21:48)
[2017-09-22] MEDS: Thiamine 100 mg/ml Inj IV SCH (09:56)
[2017-09-22] MEDS: Tobramycin/Dexamethasone (Tobradex) Opth Sol (2.5 ml) OU SCH ×4 (09:59→22:15)
--- NOTE | 2017-09-22 10:47 | CP.PCM.PN ---
<Hailey Tubbs - Last Filed: 09/22/17 10:43> Subjective - Date & Time of Evaluation Date of Evaluation: 09/22/17 Time of Evaluation: 10:43 - Subjective Subjective: ICU Progress Note for Светлана Daniels PGY2 Patient seen and examined at bedside. As per nursing staff, there were acute overnight events. Patient has a trach and taken off of sedation. He is awake, alert and following commands. He denies having any pain, shortness of breath, chest pain, fever/chills, numbness/tingling. Yesterday the clip of the trach was malfunctioning, but trach is still in place and patient is comfortable without any respiratory issues. Surgery was notified and trach will be replaced. Objective - Vital Signs/Intake and Output Vital Signs (last 24 hours): Temp Pulse Resp BP Pulse Ox 97.5 F L 86 25 H 158/99 H 100 09/22/17 04:00 09/22/17 09:56 09/22/17 07:54 09/22/17 09:56 09/22/17 07:54 Intake and Output: 09/22/17 09/22/17 06:59 18:59 Intake Total 1720 Output Total 3750 Balance -2030 - Medications Medications: Current Medications Artificial Tears (Refresh Opth Soln) 0.3 ml OU Q12 PRN PRN Reason: Dry eyes Last Admin: 09/17/17 21:43 Dose: 0.3 ml Budesonide (Pulmicort Respules) 0.5 mg IH [id number] [facility] Last Admin: 09/22/17 07:54 Dose: 0.5 mg Clonidine HCl (Catapres Tts1 0.1 Mg/24 Hr) 1 patch TD Q7D@1000 [facility] Last Admin: 09/22/17 09:56 Dose: 1 patch Folic Acid (Folic Acid) 1 mg NG DAILY [facility] Last Admin: 09/22/17 10:03 Dose: 1 mg Heparin Sodium (Porcine) (Heparin) 5,000 units SC Q12 [facility] PRN Reason: Protocol Last Admin: 09/22/17 09:58 Dose: 5,000 units Hydralazine HCl (Apresoline) 10 mg IVP Q6 PRN PRN Reason: BP> 180 Last Admin: 09/21/17 19:04 Dose: 10 mg Levetiracetam 1,000 mg/ Sodium (Chloride) 110 mls @ 460 mls/hr IV Q12 [facility] Last Admin: 09/22/17 09:55 Dose: 460 mls/hr Cefazolin Sodium (Ancef 1gm In Ns) 1 gm in 100 mls @ 100 mls/hr IVPB Q12 [facility] PRN Reason: Protocol Last Admin: 09/22/17 09:55 Dose: 100 mls/hr Insulin Detemir (Levemir) 15 unit SC HS [facility] Last Admin: 09/21/17 22:37 Dose: 15 unit Insulin Human Lispro (Humalog High) 0 units SC Q6H [facility] PRN Reason: Protocol Last Admin: 09/22/17 07:52 Dose: Not Given Levalbuterol HCl (Xopenex) 0.63 mg IH [id number] [facility] Last Admin: 09/22/17 07:54 Dose: 0.63 mg Lorazepam (Ativan) 2 mg IVP Q3H PRN; Protocol PRN Reason: Agitation Last Admin: 09/21/17 21:41 Dose: 2 mg Multivitamins/Vitamin C (Multi-Delyn Liquid) 15 ml PO 0800 [facility] Last Admin: 09/22/17 08:44 Dose: 15 ml Pantoprazole Sodium (Protonix Inj) 40 mg IVP Q12 [facility] Last Admin: 09/22/17 09:55 Dose: 40 mg Thiamine HCl (Vitamin B1 Inj) 100 mg IV DAILY [facility] Last Admin: 09/22/17 09:56 Dose: 100 mg Tobramycin/Dexamethasone (Tobradex Opht Susp) 0 ml OU QID [facility] Last Admin: 09/22/17 09:59 Dose: 1 drop Vancomycin HCl (Vancocin 25 Mg/Ml (Oral Use)) 500 mg PO Q6 [facility] PRN Reason: Protocol Last Admin: 09/22/17 06:18 Dose: 500 mg Vitamin A (Vitamin A & D Oint Ud Foilpak) 1 ea TOP Q8 PRN PRN Reason: Dry skin Last Admin: 09/17/17 18:41 Dose: 1 ea - Labs Labs: 09/22/17 06:00 09/22/17 06:00 PT 13.8 SECONDS (9.4-12.5) H 09/22/17 06:00 INR 1.20 (0.93-1.08) H 09/22/17 06:00 APTT 32.4 Seconds (25.1-36.5) 09/17/17 05:45 - Constitutional Appears: No Acute Distress - Head Exam Head Exam: ATRAUMATIC, NORMAL INSPECTION, NORMOCEPHALIC - Eye Exam Eye Exam: Normal appearance, PERRL Pupil Exam: NORMAL ACCOMODATION, PERRL - ENT Exam ENT Exam: Mucous Membranes Moist Additional comments: trach in place - Respiratory Exam Respiratory Exam: Clear to Ausculation Bilateral, NORMAL BREATHING PATTERN. absent: Rales, Rhonchi, Wheezes - Cardiovascular Exam Cardiovascular Exam: REGULAR RHYTHM, +S1, +S2. absent: Gallop, Rubs, Murmur - GI/Abdominal Exam GI & Abdominal Exam: Soft, Tenderness (at peg site ), Normal Bowel Sounds. absent: Rigid, Mass, Rebound Additional comments: peg in place- clean and dry - Extremities Exam Extremities Exam: absent: Calf Tenderness, Pedal Edema - Neurological Exam Neurological Exam: Alert, Awake, CN II-XII Intact - Skin Skin Exam: Dry, Warm Assessment and Plan - Assessment and Plan (Free Text) Assessment: This is 47yo male with past medical history with DM, HTN, and EtOH abuse admitted for septic shock secondary to pancreatitis, aspiration pneumonia, IRWIN ( resolved), seizures, thrombocytopenia (from EtOH- resolved), cardiac arrest s/p ROSC with resp failure. Patient is s/p trach and peg POD#3. Plan: Neuro: Awake and alert with trach- off of sedation Continue Keppra- Seizure precautions Ativan prn Neuro consulted- recs appreciated Maintain normothemia CV: Cardiac arrest s/p ROSC on admission Patient is HD stable Cardio consulted- recs appreciated Continue Clonidine patch weekly, hydralazine prn Maintain MAP >65 Monitor I&O Pulm: s/p trach POD #3- trach clip malfunctioning- will be replaced as per surgery Patient is on PS- will wean to trach collar as tolerated Maintain SpO2>92% Protective lung ventilation strategy HOB elevated and aspiration precaution Pulm consulted- recs appreciated Continue Xopenex, Pulmicort GI: Pancreatitis resolved and transaminitis resolved EGD showed esophageal ulcer Continue Folic acid, multivitamin, thiamine GI consulted- recs appreciated Surg consulted- recs appreciated s/p peg tube POD#3- continue tube feeds Heme: Anemia- hgb stable Hgb: 7.7- stable Transfusion threshold is 7.0 Will continue to monitor H/H Nephro: Hypokalemia, Hypernatremia Will increase free water flushes with feeds for hypernatremia Will continue to monitor electrolytes and replace as needed Nephro consulted- recs appreciated Urine output 5000cc - as per nephro, patient will not need HD Maintain euvolemia Monitor I&O ID: C Diff positive- treatment on day 13 out of 14 Repeat C. diff negative As per ID- will d/c contact precautions after finished treatment Trach culture: E Coli Afebrile, no leukocytosis ID consulted- recs appreciated Continue Ancef, Merrem and Vanc Endo: Hx of DM Levemir 15SC HS ISS Maintain euglycemia 140-180s GI ppx: Protonix 40mg DVT ppx: Heparin SC Diet: Continue tube feeds Dispo: Palliative care consulted. Patient pending transfer to LTAC Case seen, discussed and reviewed with attending. Светлана Tubbs PGY2 <Santosh Bustamante - Last Filed: 09/22/17 11:21> Objective - Vital Signs/Intake and Output Vital Signs (last 24 hours): Temp Pulse Resp BP Pulse Ox 97.5 F L 86 25 H 158/99 H 100 09/22/17 04:00 09/22/17 09:56 09/22/17 07:54 09/22/17 09:56 09/22/17 07:54 Intake and Output: 09/22/17 09/22/17 06:59 18:59 Intake Total 1720 Output Total 3750 Balance -2029 - Medications Medications: Current Medications Artificial Tears (Refresh Opth Soln) 0.3 ml OU Q12 PRN PRN Reason: Dry eyes Last Admin: 09/17/17 21:43 Dose: 0.3 ml Budesonide (Pulmicort Respules) 0.5 mg IH [id number] [facility] Last Admin: 09/22/17 07:54 Dose: 0.5 mg Clonidine HCl (Catapres Tts1 0.1 Mg/24 Hr) 1 patch TD Q7D@1000 [facility] Last Admin: 09/22/17 09:56 Dose: 1 patch Folic Acid (Folic Acid) 1 mg NG DAILY [facility] Last Admin: 09/22/17 10:03 Dose: 1 mg Heparin Sodium (Porcine) (Heparin) 5,000 units SC Q12 [facility] PRN Reason: Protocol Last Admin: 09/22/17 09:58 Dose: 5,000 units Hydralazine HCl (Apresoline) 10 mg IVP Q6 PRN PRN Reason: BP> 180 Last Admin: 09/21/17 19:04 Dose: 10 mg Levetiracetam 1,000 mg/ Sodium (Chloride) 110 mls @ 460 mls/hr IV Q12 [facility] Last Admin: 09/22/17 09:55 Dose: 460 mls/hr Cefazolin Sodium (Ancef 1gm In Ns) 1 gm in 100 mls @ 100 mls/hr IVPB Q12 [facility] PRN Reason: Protocol Last Admin: 09/22/17 09:55 Dose: 100 mls/hr Insulin Detemir (Levemir) 15 unit SC HS [facility] Last Admin: 09/21/17 22:37 Dose: 15 unit Insulin Human Lispro (Humalog High) 0 units SC Q6H [facility] PRN Reason: Protocol Last Admin: 09/22/17 07:52 Dose: Not Given Levalbuterol HCl (Xopenex) 0.63 mg IH [id number] [facility] Last Admin: 09/22/17 07:54 Dose: 0.63 mg Lorazepam (Ativan) 2 mg IVP Q3H PRN; Protocol PRN Reason: Agitation Last Admin: 09/21/17 21:41 Dose: 2 mg Multivitamins/Vitamin C (Multi-Delyn Liquid) 15 ml PO 0800 [facility] Last Admin: 09/22/17 08:44 Dose: 15 ml Pantoprazole Sodium (Protonix Inj) 40 mg IVP Q12 [facility] Last Admin: 09/22/17 09:55 Dose: 40 mg Thiamine HCl (Vitamin B1 Inj) 100 mg IV DAILY [facility] Last Admin: 09/22/17 09:56 Dose: 100 mg Tobramycin/Dexamethasone (Tobradex Opht Susp) 0 ml OU QID [facility] Last Admin: 09/22/17 09:59 Dose: 1 drop Vancomycin HCl (Vancocin 25 Mg/Ml (Oral Use)) 500 mg PO Q6 [facility] PRN Reason: Protocol Last Admin: 09/22/17 06:18 Dose: 500 mg Vitamin A (Vitamin A & D Oint Ud Foilpak) 1 ea TOP Q8 PRN PRN Reason: Dry skin Last Admin: 09/17/17 18:41 Dose: 1 ea - Labs Labs: 09/22/17 06:00 09/22/17 06:00 PT 13.8 SECONDS (9.4-12.5) H 09/22/17 06:00 INR 1.20 (0.93-1.08) H 09/22/17 06:00 APTT 32.4 Seconds (25.1-36.5) 09/17/17 05:45 Assessment and Plan - Assessment and Plan (Free Text) Plan: Patient seen and examined on rounds with resident, agree with note with following additions/exceptions: Patient is 47yo male PMHx of DM2, HTN and alcohol abuse admitted with septic shock , pancreatitis, aspiration pneumonia, IRWIN, transaminitis, seizures, metabolic acidosis, thrombocytopenia likely secondary to alcohol abuse, s/p cardiac arrest s/p ROSC and respiratory failure/ARDS which has resolved. Currently afebrile, HD stable, comfortable, in NAD. On exam, awake, alert, in NAD. s/p PEG, Trach ARDS, resolved IRWIN, improved, off HD PNA Pancreatitis Seizure Disorder EtOH abuse s/p Cardiac Arrest s/p ROSC Recommend: - cont with ventilatory support as needed, cont with CPAP, attempt T collar as tolerated - antibiotics as per ID - BP control - Seizure Ppx - follow up neurology - follow up nephro - FS control, Levemir, Insulin sliding scale - Feeds - monitor UOP - GI ppx - DVT ppx Critical care time 35 minutes
--- NOTE | 2017-09-22 15:42 | CP.PCM.PN ---
<Kaylie Dunn - Last Filed: 09/22/17 15:37> Subjective - Date & Time of Evaluation Date of Evaluation: 09/22/17 Time of Evaluation: 11:00 - Subjective Subjective: Dr. Machado Service Patient seen and examined at bedside. Patient has a trach and taken off of sedation. He is awake, alert and following commands. He denies fever, chills, chest pains, shortness of breath, chest pain, fever/chills, numbness/tingling. Yesterday the clip of the trach was malfunctioning, but trach is still in place and patient is comfortable without any respiratory issues. Surgery was notified and trach will be replaced. Chance in place draining susannah urine. Objective - Vital Signs/Intake and Output Vital Signs (last 24 hours): Temp Pulse Resp BP Pulse Ox 97.5 F L 81 25 H 166/105 H 100 09/22/17 04:00 09/22/17 12:08 09/22/17 07:54 09/22/17 12:08 09/22/17 07:54 Intake and Output: 09/22/17 09/22/17 06:59 18:59 Intake Total 1720 Output Total 3750 Balance -2030 - Medications Medications: Current Medications Artificial Tears (Refresh Opth Soln) 0.3 ml OU Q12 PRN PRN Reason: Dry eyes Last Admin: 09/17/17 21:43 Dose: 0.3 ml Budesonide (Pulmicort Respules) 0.5 mg IH [id number] [facility] Last Admin: 09/22/17 07:54 Dose: 0.5 mg Clonidine HCl (Catapres Tts1 0.1 Mg/24 Hr) 1 patch TD Q7D@1000 [facility] Last Admin: 09/22/17 09:56 Dose: 1 patch Folic Acid (Folic Acid) 1 mg NG DAILY [facility] Last Admin: 09/22/17 10:03 Dose: 1 mg Heparin Sodium (Porcine) (Heparin) 5,000 units SC Q12 [facility] PRN Reason: Protocol Last Admin: 09/22/17 09:58 Dose: 5,000 units Hydralazine HCl (Apresoline) 10 mg IVP Q6 PRN PRN Reason: BP> 180 Last Admin: 09/22/17 12:08 Dose: 10 mg Levetiracetam 1,000 mg/ Sodium (Chloride) 110 mls @ 460 mls/hr IV Q12 [facility] Last Admin: 09/22/17 09:55 Dose: 460 mls/hr Cefazolin Sodium (Ancef 1gm In Ns) 1 gm in 100 mls @ 100 mls/hr IVPB Q12 [facility] PRN Reason: Protocol Last Admin: 09/22/17 09:55 Dose: 100 mls/hr Insulin Detemir (Levemir) 15 unit SC HS [facility] Last Admin: 09/21/17 22:37 Dose: 15 unit Insulin Human Lispro (Humalog High) 0 units SC Q6H [facility] PRN Reason: Protocol Last Admin: 09/22/17 14:37 Dose: Not Given Levalbuterol HCl (Xopenex) 0.63 mg IH [id number] [facility] Last Admin: 09/22/17 13:20 Dose: 0.63 mg Lorazepam (Ativan) 2 mg IVP Q3H PRN; Protocol PRN Reason: Agitation Last Admin: 09/21/17 21:41 Dose: 2 mg Multivitamins/Vitamin C (Multi-Delyn Liquid) 15 ml PO 0800 [facility] Last Admin: 09/22/17 08:44 Dose: 15 ml Pantoprazole Sodium (Protonix Inj) 40 mg IVP Q12 [facility] Last Admin: 09/22/17 09:55 Dose: 40 mg Thiamine HCl (Vitamin B1 Inj) 100 mg IV DAILY [facility] Last Admin: 09/22/17 09:56 Dose: 100 mg Tobramycin/Dexamethasone (Tobradex Opht Susp) 0 ml OU QID [facility] Last Admin: 09/22/17 14:42 Dose: 1 drop Vancomycin HCl (Vancocin 25 Mg/Ml (Oral Use)) 500 mg PO Q6 [facility] PRN Reason: Protocol Last Admin: 09/22/17 12:06 Dose: 500 mg Vitamin A (Vitamin A & D Oint Ud Foilpak) 1 ea TOP Q8 PRN PRN Reason: Dry skin Last Admin: 09/17/17 18:41 Dose: 1 ea - Labs Labs: 09/22/17 06:00 09/22/17 06:00 PT 13.8 SECONDS (9.4-12.5) H 09/22/17 06:00 INR 1.20 (0.93-1.08) H 09/22/17 06:00 APTT 32.4 Seconds (25.1-36.5) 09/17/17 05:45 - Constitutional Appears: No Acute Distress - Head Exam Head Exam: ATRAUMATIC, NORMAL INSPECTION, NORMOCEPHALIC - Eye Exam Eye Exam: EOMI, Normal appearance, PERRL Pupil Exam: NORMAL ACCOMODATION, PERRL - ENT Exam ENT Exam: Mucous Membranes Moist, Normal Exam Additional comments: trach in place - Respiratory Exam Respiratory Exam: Clear to Ausculation Bilateral, Rhonchi, NORMAL BREATHING PATTERN - Cardiovascular Exam Cardiovascular Exam: REGULAR RHYTHM, +S1, +S2. absent: Murmur - GI/Abdominal Exam GI & Abdominal Exam: Soft, Normal Bowel Sounds. absent: Tenderness Additional comments: PEG in place - Neurological Exam Neurological Exam: Alert, Awake, CN II-XII Intact, Normal Gait - Psychiatric Exam Psychiatric exam: Normal Affect, Normal Mood - Skin Skin Exam: Dry, Intact, Normal Color, Warm Assessment and Plan - Assessment and Plan (Free Text) Assessment: 47 M with a PMH of DM2, HTN and alcohol use who presented with URI symptoms such as cough, shortness of breath, palpitations. Last alcoholic drink was night prior to admission. Patient was admitted for septic shock (with lactate of 7.7 on presentation), high anion gap metabolic acidosis, acute pancreatitis 2 /2 ETOH vs triglycerides, IRWIN vs CKD, elevated LFTs likely 2/2 ETOH, elevated BNP, hyponatremia, and hypokalemia. s/p cardiac arrest and ROSC. Upon ROSC, patient vomited and likely aspirated, but was turned to the side and suctioned. Intubated and on vent with sedation in ICU. Patient initially required pressors to maintain BP but is no longer needing them. Remains on Keppra for seizure ppx. IRWIN has improved and urine production has increased, patient s/p 6 sessions of temporary dialysis and currently. Patient is POD3 trach/peg. Patient has no access for dialysis and currently doesn't require dialysis per Nephro as renal function is improving and urine output is adequate. Pt is pending placement 1. Septic shock likely 2/2 pancreatitis, resolved - no fevers overnight - mari cx negative - trach-aspirate growing e.coli (sensitive to meropenem which patient is on), previously was not - cont Flagyl and PO Vanc for +cdiff in stool culture - cont Merrem for trach aspirate e.coli infection - continue ICU monitoring due to unstable vitals and altered mental state - cont tube feeds through gastrostomy per surgery/ICU team - cont contact precautions for c.diff infection - tylenol PRN - ID consulted, recs appreciated - GI consulted, recs appreciated - Surgery consulted, recs appreciated - Palliative care consulted for advanced directives, patient will be [facility] pending authorization 2. AMS 2/2 Anion gap metabolic acidosis likely 2/2 lactic acidosis and ETOH, improving today - s/p cardiac arrest 09/08 - s/p endotacheal intubation due to hypoxemia and vomiting to reduce risk of aspiration - s/p tracheostomy - CT Head showed no acute intracranial abnormalities and mild chronic microangiopathic changes, w/ moderate global parencyhmal volume loss - ativan prn agitation - Maintain SaO2 > 90% - EEG was normal - cont Keppra for seizure ppx - Neurology consulted, recs appreciated - Cardiology consulted, recs appreciated 3. IRWIN vs CKD a/w Hypomagnesemia - s/p 6 dialysis sessions - avoid nephrotoxins - Electrolyte imbalances will be repleted as needed - Nephrology consulted, recs appreciated 4. HTN - clonidine patch q7d - hydralazine prn - monitor VS 5. Hypergylcemia - Levemir 15u HS - ISS - could be a mix of reactive hyperglycemia and baseline uncontrolled DM2 - TSH and A1C WNL 6. 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 Transaminitis likely w/ underlying liver disease, improving - likely 2/2 shock liver and chronic ETOH use since INR is elevated - cont thiamine, MV and folic acid - hepatitis panel negative - HIV pending - continue to monitor 8. Poor prognosis - discuss with family/ poor prognosis and long-term plane - Palliative care consulted - patient for LTAC pending authorization Patient was seen, examined and discussed with attending, Dr. Machado <Tatum Machado - Last Filed: 09/22/17 16:57> Objective - Vital Signs/Intake and Output Vital Signs (last 24 hours): Temp Pulse Resp BP Pulse Ox 97.5 F L 81 25 H 166/105 H 100 09/22/17 04:00 09/22/17 12:08 09/22/17 07:54 09/22/17 12:08 09/22/17 07:54 Intake and Output: 09/22/17 09/22/17 06:59 18:59 Intake Total 1720 Output Total 3750 Balance -2030 - Medications Medications: Current Medications Artificial Tears (Refresh Opth Soln) 0.3 ml OU Q12 PRN PRN Reason: Dry eyes Last Admin: 09/17/17 21:43 Dose: 0.3 ml Budesonide (Pulmicort Respules) 0.5 mg IH [id number] [facility] Last Admin: 09/22/17 07:54 Dose: 0.5 mg Clonidine HCl (Catapres Tts1 0.1 Mg/24 Hr) 1 patch TD Q7D@1000 [facility] Last Admin: 09/22/17 09:56 Dose: 1 patch Folic Acid (Folic Acid) 1 mg NG DAILY [facility] Last Admin: 09/22/17 10:03 Dose: 1 mg Heparin Sodium (Porcine) (Heparin) 5,000 units SC Q12 [facility] PRN Reason: Protocol Last Admin: 09/22/17 09:58 Dose: 5,000 units Hydralazine HCl (Apresoline) 10 mg IVP Q6 PRN PRN Reason: BP> 180 Last Admin: 09/22/17 12:08 Dose: 10 mg Levetiracetam 1,000 mg/ Sodium (Chloride) 110 mls @ 460 mls/hr IV Q12 [facility] Last Admin: 09/22/17 09:55 Dose: 460 mls/hr Cefazolin Sodium (Ancef 1gm In Ns) 1 gm in 100 mls @ 100 mls/hr IVPB Q12 [facility] PRN Reason: Protocol Last Admin: 09/22/17 09:55 Dose: 100 mls/hr Insulin Detemir (Levemir) 15 unit SC HS [facility] Last Admin: 09/21/17 22:37 Dose: 15 unit Insulin Human Lispro (Humalog High) 0 units SC Q6H [facility] PRN Reason: Protocol Last Admin: 09/22/17 14:37 Dose: Not Given Levalbuterol HCl (Xopenex) 0.63 mg IH [id number] [facility] Last Admin: 09/22/17 13:20 Dose: 0.63 mg Lorazepam (Ativan) 2 mg IVP Q3H PRN; Protocol PRN Reason: Agitation Last Admin: 09/21/17 21:41 Dose: 2 mg Multivitamins/Vitamin C (Multi-Delyn Liquid) 15 ml PO 0800 [facility] Last Admin: 09/22/17 08:44 Dose: 15 ml Pantoprazole Sodium (Protonix Inj) 40 mg IVP Q12 [facility] Last Admin: 09/22/17 09:55 Dose: 40 mg Thiamine HCl (Vitamin B1 Inj) 100 mg IV DAILY [facility] Last Admin: 09/22/17 09:56 Dose: 100 mg Tobramycin/Dexamethasone (Tobradex Opht Susp) 0 ml OU QID [facility] Last Admin: 09/22/17 14:42 Dose: 1 drop Vancomycin HCl (Vancocin 25 Mg/Ml (Oral Use)) 500 mg PO Q6 [facility] PRN Reason: Protocol Last Admin: 09/22/17 12:06 Dose: 500 mg Vitamin A (Vitamin A & D Oint Ud Foilpak) 1 ea TOP Q8 PRN PRN Reason: Dry skin Last Admin: 09/17/17 18:41 Dose: 1 ea - Labs Labs: 09/22/17 06:00 09/22/17 06:00 PT 13.8 SECONDS (9.4-12.5) H 09/22/17 06:00 INR 1.20 (0.93-1.08) H 09/22/17 06:00 APTT 32.4 Seconds (25.1-36.5) 09/17/17 05:45 Attending/Attestation - Attestation I have personally seen and examined this patient.: Yes I have fully participated in the care of the patient.: Yes I have reviewed all pertinent clinical information, including history, physical exam and plan: Yes Notes (Text): 09/22/17 16:55 Attending note; Patient seen and examined with resident. Patient is a 47 year male with history of alcohol abuse, type 2 diabetes who came initially for abdominal pain and dyspnea. He was found to be severely acidotic and was diagnosed with alcoholic pancreatitis. Patient is post cardiac arrest. Currently intubated. s/p Trach and gastrostomy tube placement. patient is more alert. Able to follow few commands. leukocytosis is resolving. currently on ancef. Blood and urine culture negative. Tracheostomy culture is positive for Escherichia coli. C. difficile colitis: Continue PO vancomycin. diarrhea resolved. acute kidney injury due to SIRS vs ATN/oliguric renal failure ;currently off hemodialysis. Case discussed with nephrology in detail. urine output is increasing.creatinine stabilized. Continue seizure precautions, keppra, thiamine, folate and MVI.Neurology evaluation appreciated. Elevated LFT due to shock liver/alcohol abuse. IMproved. anemia and thrombocytopenia due to alcohol induced BM suppression vs sepsis; improved significantly. case discussed with healthcare social worker in detail. Pending authorization for LTAC placement.
--- NOTE | 2017-09-22 16:47 | CP.PCM.PN ---
Subjective - Date & Time of Evaluation Date of Evaluation: 09/22/17 Time of Evaluation: 16:46 - Subjective Subjective: RENAL FOLLOW UP Assessment: critical Acute Kidney Injury (N17.9) likely due to pre-renal state, SIRS, Acute tubular necrosis Hypernatermia hypomagnesemia hypokalemia DM, HTN, chronic alcoholism, hepatic dysfunction acute pancreatitis with hyperglycemia HAGMA with lactic acidosis + alcohol ketoacidosis and starvation ketoacidosis Thrombocytopenia hyperphosphatemia s/p cardiac arrest, seizure ARDS Plan UOP remains excellent last hd was on 09/19 continue to hold anemia s/p aranesp 09/20 monitor phos levels replete k replete mag free water flush increased this am 200 q 4 discussed w/ ICU Staff S: seen and examined remains intubated Physical Examination: General Appearance: ill appearing. on vent Vitals reviewed and noted as below Head; Atraumatic, normocephalic ENT: intubated Neck; supple Lungs: dec bs at bases mechanical bs Heart: Increased rate. s1s2 normal. No rub or gallop. Extremities: 1+ edema. No varicose veins Neurological: Patient is sedated Skin: Warm and dry. Abdomen: Abdomen is soft. Bowel sounds decreased has rectal tube Psych: unable to assess MSK: no joint tenderness Objective - Vital Signs/Intake and Output Vital Signs (last 24 hours): Temp Pulse Resp BP Pulse Ox 97.5 F L 81 25 H 166/105 H 100 09/22/17 04:00 09/22/17 12:08 09/22/17 07:54 09/22/17 12:08 09/22/17 07:54 Intake and Output: 09/22/17 09/22/17 06:59 18:59 Intake Total 1720 Output Total 3750 Balance -2030 - Medications Medications: Current Medications Artificial Tears (Refresh Opth Soln) 0.3 ml OU Q12 PRN PRN Reason: Dry eyes Last Admin: 09/17/17 21:43 Dose: 0.3 ml Budesonide (Pulmicort Respules) 0.5 mg IH [id number] [facility] Last Admin: 09/22/17 07:54 Dose: 0.5 mg Clonidine HCl (Catapres Tts1 0.1 Mg/24 Hr) 1 patch TD Q7D@1000 [facility] Last Admin: 09/22/17 09:56 Dose: 1 patch Folic Acid (Folic Acid) 1 mg NG DAILY [facility] Last Admin: 09/22/17 10:03 Dose: 1 mg Heparin Sodium (Porcine) (Heparin) 5,000 units SC Q12 [facility] PRN Reason: Protocol Last Admin: 09/22/17 09:58 Dose: 5,000 units Hydralazine HCl (Apresoline) 10 mg IVP Q6 PRN PRN Reason: BP> 180 Last Admin: 09/22/17 12:08 Dose: 10 mg Levetiracetam 1,000 mg/ Sodium (Chloride) 110 mls @ 460 mls/hr IV Q12 [facility] Last Admin: 09/22/17 09:55 Dose: 460 mls/hr Cefazolin Sodium (Ancef 1gm In Ns) 1 gm in 100 mls @ 100 mls/hr IVPB Q12 [facility] PRN Reason: Protocol Last Admin: 09/22/17 09:55 Dose: 100 mls/hr Insulin Detemir (Levemir) 15 unit SC HS [facility] Last Admin: 09/21/17 22:37 Dose: 15 unit Insulin Human Lispro (Humalog High) 0 units SC Q6H [facility] PRN Reason: Protocol Last Admin: 09/22/17 14:37 Dose: Not Given Levalbuterol HCl (Xopenex) 0.63 mg IH [id number] [facility] Last Admin: 09/22/17 13:20 Dose: 0.63 mg Lorazepam (Ativan) 2 mg IVP Q3H PRN; Protocol PRN Reason: Agitation Last Admin: 09/21/17 21:41 Dose: 2 mg Multivitamins/Vitamin C (Multi-Delyn Liquid) 15 ml PO 0800 [facility] Last Admin: 09/22/17 08:44 Dose: 15 ml Pantoprazole Sodium (Protonix Inj) 40 mg IVP Q12 [facility] Last Admin: 09/22/17 09:55 Dose: 40 mg Thiamine HCl (Vitamin B1 Inj) 100 mg IV DAILY [facility] Last Admin: 09/22/17 09:56 Dose: 100 mg Tobramycin/Dexamethasone (Tobradex Opht Susp) 0 ml OU QID [facility] Last Admin: 09/22/17 14:42 Dose: 1 drop Vancomycin HCl (Vancocin 25 Mg/Ml (Oral Use)) 500 mg PO Q6 [facility] PRN Reason: Protocol Last Admin: 09/22/17 12:06 Dose: 500 mg Vitamin A (Vitamin A & D Oint Ud Foilpak) 1 ea TOP Q8 PRN PRN Reason: Dry skin Last Admin: 09/17/17 18:41 Dose: 1 ea - Labs Labs: 09/22/17 06:00 09/22/17 06:00 PT 13.8 SECONDS (9.4-12.5) H 09/22/17 06:00 INR 1.20 (0.93-1.08) H 09/22/17 06:00 APTT 32.4 Seconds (25.1-36.5) 09/17/17 05:45
--- NOTE | 2017-09-22 19:27 | PN ---
DATE: 09/22/2017 SUBJECTIVE: The patient was seen early in this morning in the ICU 128, bed 4. He was trached and on the vent and he also has a PEG. OBJECTIVE: VITAL SIGNS: Patient's temperature is 97; blood pressure is 160/100; respiratory rate, on a vent; heart rate of 86. HEENT: Unremarkable. NECK: Supple. LUNGS: Have decreased breath sounds. HEART: Normal S1, S2. ABDOMEN: Soft, nontender. LABORATORY DATA: Laboratory examination reveals the white count is 8.8, hemoglobin of 7, platelets of 226. Chemistries are BUN of 22, creatinine of 1.3. Last procalcitonin was on 09/17/2017, at 2.76. Urinalysis is noted. Microbiology reveals stool for C. diff antigen and toxin were negative. MEDICATIONS: Review of orders reveals the patient to be on cefazolin, vancomycin p.o. Dr. Santosh Bustamante's note is reviewed. ASSESSMENT AND PLAN: A 47-year-old male who was seen early this morning in 128, bed 4, who has ventilatory dependent respiratory failure, now intubated status post trach and PEG with severe sepsis with acute renal failure and on top of acute alcoholic pancreatitis earlier did have clostridium difficile antigen positive with acute alcoholic pancreatitis and possible health-care associated pneumonia with E. Coli in the sputum, improving on p.o. vancomycin day #13, will complete 14 days, and patient is on cefazolin with E. Coli in the sputum, today is day #6. White count is normal. We will discontinue the cefazolin within the next 24 hours. The patient's chest x-ray from yesterday, no definite active pulmonary disease is appreciable bilaterally. Jason Oreilly MD
[2017-09-22] MEDS: Insulin Detemir 100 units/ml Vial (Levemir) SC SCH (22:12)
[2017-09-23] MEDS: Insulin Lispro (HUMAlog) HIGH Coverage SC SCH ×4 (00:45→22:14)
[2017-09-23] MEDS: Levalbuterol 0.63 MG/3 ML Inhal Soln UD IH SCH ×4 (01:31→19:33)
--- NOTE | 2017-09-23 01:55 | PN ---
DATE: 09/22/2017 SUBJECTIVE: This patient was seen and evaluated earlier today. Discussed with the nursing staff. The patient is tolerating the G-tube feeding. PHYSICAL EXAMINATION GENERAL: VITAL SIGNS: Temperature is 97.5, pulse 81, blood pressure 166/105. HEENT: Anicteric. NECK: Has tracheostomy in place. HEART: S1 and S2 heard. LUNGS: Bilateral air entry present. ABDOMEN: Soft, G-tube present. EXTREMITIES: No cyanosis or clubbing. LABORATORY DATA: The patient's hemoglobin is 7.7, hematocrit 24.3, WBC 8.8, platelets 226. Chemistry sodium 151, potassium 3.2, total bilirubin 0.7, magnesium 1.5. IMPRESSION: This 47-year-old patient with diabetes mellitus, hypertension, and alcohol abuse, admitted with shortness of breath, sepsis, status post cardiac arrest. The patient was on ventilator, now recently had an EEG and tracheostomy and also surgical gastrostomy done and G-tube was placed. The patient had an endoscopy done before to the surgical gastric tube placement and was found to have a grade D esophagitis with ulceration, hence endoscopic pull-technique of the percutaneous endoscopic gastrostomy tube was deferred. Subsequently, had an open gastrostomy done surgically. The patient's hemoglobin is 7.7 low has been holding. Would recommend to continue the proton pump inhibitor, follow up of the hemoglobin and hematocrit, transfuse as needed. The patient's total bilirubin is 1.5, alk phos is 129. The patient's sodium is 151, potassium 3.2, we will correct the electrolyte balance. Neurologically, the patient appears to be significantly improved. Able to understand commands. Thank you very much for allowing me to participate in the care of this patient. Yogi Fernandez MD [facility]
[2017-09-23 04:57] LABS: ARTERIAL BLOOD GAS HCO3 21.1 mmol/L (21-28); ARTERIAL BLOOD GAS HEMOGLOBIN 7.6 g/dL (11.7-17.4); ARTERIAL BLOOD GAS O2 CAPACITY 10.7 mL/dl (16-24); ARTERIAL BLOOD GAS O2 CONTENT 10.7 ML/dl (15-23); ARTERIAL BLOOD GAS O2 SAT 100.1 % (95-98); ARTERIAL BLOOD GAS PCO2 34 mm/Hg (35-45); ARTERIAL BLOOD GAS TCO2 22.1 mmol.L (22-28)
[2017-09-23] MEDS ORDERED: Dextrose 50% SYRINGE Inj (50 ml) ONE (05:50)
[2017-09-23] MEDS ORDERED: Dextrose 50% SYRINGE Inj (50 ml) IVP ONE (05:58)
[2017-09-23] MEDS: Budesonide 0.5 mg/2 ml Inhal Susp UD IH SCH ×2 (07:36→19:33)
[2017-09-23] MEDS: Vancomycin 25 MG/ML PO SCH (07:43)
[2017-09-23 08:07] LABS: BASO # 0.04 K/mm3 (0.0-2.0); BASO % 0.6 % (0.0-3.0); EOS % 0.1 % (1.5-5.0); GRAN # 4.8 (1.4-6.5); GRAN % 69.2 % (50.0-68.0); LYMPH # 1.5 (1.2-3.4); LYMPH % 21.5 % (22.0-35.0); MEAN CELL VOLUME 97.5 fl (80.0-105.0); MEAN CORPUSCULAR HEMOGLOBIN 30.5 pg (25.0-35.0); MEAN CORPUSCULAR HGB CONC 31.2 g/dl (31.0-37.0); MEAN PLATELET VOLUME 10.2 fl (7.0-11.0); MONO # 0.6 (0.1-0.6); MONO % 8.6 % (1.0-6.0); RBC 2.43 10^6/uL (3.5-6.1); WHITE BLOOD COUNT 6.9 10^3/ul (4.5-11.0)
[2017-09-23 08:08] LABS: INR 1.17 (0.93-1.08); PROTHROMBIN TIME 13.5 SECONDS (9.4-12.5)
[2017-09-23 08:13] LABS: HEMOGLOBIN 7.4 g/dL (14.0-18.0)
[2017-09-23 08:27] LABS: ALB/GLOB RATIO 0.6 (1.1-1.8); ALBUMIN 2.6 g/dL (3.0-4.8); ALT/SGPT 18 U/L (7-56); AST/SGOT 26 U/L (17-59); BLOOD UREA NITROGEN 16 mg/dL (7-21); CALCIUM 9.2 mg/dL (8.4-10.5); GFR AFRICAN-AMERICAN > 60; GFR NON-AFRICAN AMERICAN > 60; MAGNESIUM 1.5 mg/dL (1.7-2.2)
[2017-09-23] MEDS ORDERED: Magnesium Sulfate 2 GM in Sodium Chloride 0.9% 100 ML IVPB ONE (09:14)
[2017-09-23] MEDS: ceFAZolin 1 gm in NS 1 GM/100 ML BAG IVPB SCH (09:34)
[2017-09-23] MEDS: levETIRAcetam 1,000 MG in Sodium Chloride 0.9% 100 ML IV SCH ×2 (09:35→22:06)
[2017-09-23] MEDS: Multi Vitamins 15 mL UD Oral Solution PO SCH (09:35)
[2017-09-23] MEDS: Thiamine 100 mg/ml Inj IV SCH (10:10)
[2017-09-23] MEDS: Tobramycin/Dexamethasone (Tobradex) Opth Sol (2.5 ml) OU SCH (10:10)
--- NOTE | 2017-09-23 10:16 | CP.PCM.PN ---
Subjective - Date & Time of Evaluation Date of Evaluation: 09/23/17 Time of Evaluation: 08:00 - Subjective Subjective: Pt seen and examined, awake, alert, following commands. Objective - Vital Signs/Intake and Output Vital Signs (last 24 hours): Temp Pulse Resp BP Pulse Ox 98.6 F 76 24 191/115 H 100 09/23/17 00:00 09/23/17 08:51 09/22/17 23:59 09/23/17 08:51 09/23/17 02:29 - Medications Medications: Current Medications Artificial Tears (Refresh Opth Soln) 0.3 ml OU Q12 PRN PRN Reason: Dry eyes Last Admin: 09/17/17 21:43 Dose: 0.3 ml Budesonide (Pulmicort Respules) 0.5 mg IH [id number] [facility] Last Admin: 09/23/17 07:36 Dose: 0.5 mg Clonidine HCl (Catapres Tts1 0.1 Mg/24 Hr) 1 patch TD Q7D@1000 [facility] Last Admin: 09/22/17 09:56 Dose: 1 patch Folic Acid (Folic Acid) 1 mg NG DAILY [facility] Last Admin: 09/23/17 09:36 Dose: 1 mg Heparin Sodium (Porcine) (Heparin) 5,000 units SC Q12 [facility] PRN Reason: Protocol Last Admin: 09/23/17 09:36 Dose: 5,000 units Hydralazine HCl (Apresoline) 10 mg IVP Q6 PRN PRN Reason: BP> 180 Last Admin: 09/23/17 08:51 Dose: 10 mg Levetiracetam 1,000 mg/ Sodium (Chloride) 110 mls @ 460 mls/hr IV Q12 [facility] Last Admin: 09/23/17 09:35 Dose: 460 mls/hr Cefazolin Sodium (Ancef 1gm In Ns) 1 gm in 100 mls @ 100 mls/hr IVPB Q12 [facility] PRN Reason: Protocol Last Admin: 09/23/17 09:34 Dose: 100 mls/hr Potassium Chloride (Potassium Chloride 10 Meq/100 Ml) 10 meq in 100 mls @ 50 mls/hr IVPB ONCE ONE Stop: 09/23/17 11:12 Last Admin: 09/23/17 10:01 Dose: 50 mls/hr Magnesium Sulfate 2 gm/ Sodium (Chloride) 104 mls @ 102 mls/hr IVPB ONCE ONE Stop: 09/23/17 10:15 Last Admin: 09/23/17 10:02 Dose: 102 mls/hr Potassium Chloride (Potassium Chloride 10 Meq/100 Ml) 10 meq in 100 mls @ 50 mls/hr IVPB ONCE ONE Stop: 09/23/17 11:14 Insulin Detemir (Levemir) 15 unit SC HS [facility] Last Admin: 09/22/17 22:12 Dose: 15 unit Insulin Human Lispro (Humalog High) 0 units SC Q6H [facility] PRN Reason: Protocol Last Admin: 09/23/17 07:17 Dose: Not Given Levalbuterol HCl (Xopenex) 0.63 mg IH [id number] [facility] Last Admin: 09/23/17 07:36 Dose: 0.63 mg Lorazepam (Ativan) 2 mg IVP Q3H PRN; Protocol PRN Reason: Agitation Last Admin: 09/23/17 00:10 Dose: 2 mg Multivitamins/Vitamin C (Multi-Delyn Liquid) 15 ml PO 0800 [facility] Last Admin: 09/23/17 09:35 Dose: 15 ml Pantoprazole Sodium (Protonix Inj) 40 mg IVP Q12 [facility] Last Admin: 09/23/17 09:34 Dose: 40 mg Thiamine HCl (Vitamin B1 Inj) 100 mg IV DAILY [facility] Last Admin: 09/23/17 10:10 Dose: 100 mg Tobramycin/Dexamethasone (Tobradex Opht Susp) 0 ml OU QID [facility] Last Admin: 09/23/17 10:10 Dose: 1 drop Vitamin A (Vitamin A & D Oint Ud Foilpak) 1 ea TOP Q8 PRN PRN Reason: Dry skin Last Admin: 09/17/17 18:41 Dose: 1 ea - Labs Labs: 09/23/17 07:45 09/23/17 07:45 PT 13.5 SECONDS (9.4-12.5) H 09/23/17 07:45 INR 1.17 (0.93-1.08) H 09/23/17 07:45 APTT 32.4 Seconds (25.1-36.5) 09/17/17 05:45 - Constitutional Appears: Non-toxic, No Acute Distress - Eye Exam Eye Exam: Normal appearance - ENT Exam ENT Exam: Mucous Membranes Moist - Respiratory Exam Respiratory Exam: Clear to Ausculation Bilateral, NORMAL BREATHING PATTERN - Cardiovascular Exam Cardiovascular Exam: REGULAR RHYTHM, +S1, +S2 - GI/Abdominal Exam GI & Abdominal Exam: Soft, Normal Bowel Sounds Additional comments: +PEG - Extremities Exam Extremities Exam: Pedal Edema - Neurological Exam Neurological Exam: Alert, Awake Assessment and Plan - Assessment and Plan (Free Text) Assessment: Patient is 47yo male PMHx of DM2, HTN and alcohol abuse admitted with septic shock , pancreatitis, aspiration pneumonia, IRWIN, transaminitis, seizures, metabolic acidosis, thrombocytopenia likely secondary to alcohol abuse, s/p cardiac arrest s/p ROSC and respiratory failure/ARDS which has resolved. Currently afebrile, HD stable, comfortable, in NAD. On exam, awake, alert, in NAD. s/p PEG, Trach Will attempt T collar ARDS, resolved IRWIN, improved, off HD PNA Pancreatitis Seizure Disorder EtOH abuse s/p Cardiac Arrest s/p ROSC Recommend: - cont with ventilatory support as needed, cont with CPAP, attempt T collar as tolerated - antibiotics as per ID, C diff antigen Neg - BP control - Seizure Ppx - follow up neurology - follow up nephro - FS control, Levemir, Insulin sliding scale - Feeds - monitor UOP - GI ppx - DVT ppx - Pending transfer to [facility]
--- NOTE | 2017-09-23 12:07 | CP.PCM.PN ---
Subjective - Date & Time of Evaluation Date of Evaluation: 09/23/17 Time of Evaluation: 12:04 - Subjective Subjective: Mr. Aguero was seen and examined at the bedside. He is alert, oriented with no sounds coming from his mouth, but able to form words, He is able to utilize non- verbal cues such as shaking or nodding his head to communicate. He has the trach connected to a humidified oxygen.He is able to follow simple commands. He is able to feed himself and tolerating ice chips. He is up in chair bedside his bed. There was no untoward events overnight. Objective - Vital Signs/Intake and Output Vital Signs (last 24 hours): Temp Pulse Resp BP Pulse Ox 98.6 F 76 19 191/115 H 100 09/23/17 00:00 09/23/17 08:51 09/23/17 07:36 09/23/17 08:51 09/23/17 07:36 - Medications Medications: Current Medications Artificial Tears (Refresh Opth Soln) 0.3 ml OU Q12 PRN PRN Reason: Dry eyes Last Admin: 09/17/17 21:43 Dose: 0.3 ml Budesonide (Pulmicort Respules) 0.5 mg IH [id number] [facility] Last Admin: 09/23/17 07:36 Dose: 0.5 mg Clonidine HCl (Catapres Tts1 0.1 Mg/24 Hr) 1 patch TD Q7D@1000 [facility] Last Admin: 09/22/17 09:56 Dose: 1 patch Folic Acid (Folic Acid) 1 mg NG DAILY [facility] Last Admin: 09/23/17 09:36 Dose: 1 mg Heparin Sodium (Porcine) (Heparin) 5,000 units SC Q12 [facility]IA PRN Reason: Protocol Last Admin: 09/23/17 09:36 Dose: 5,000 units Hydralazine HCl (Apresoline) 10 mg IVP Q6 PRN PRN Reason: BP> 180 Last Admin: 09/23/17 08:51 Dose: 10 mg Levetiracetam 1,000 mg/ Sodium (Chloride) 110 mls @ 460 mls/hr IV Q12 [facility] Last Admin: 09/23/17 09:35 Dose: 460 mls/hr Insulin Detemir (Levemir) 15 unit SC HS [facility] Last Admin: 09/22/17 22:12 Dose: 15 unit Insulin Human Lispro (Humalog High) 0 units SC Q6H [facility]IA PRN Reason: Protocol Last Admin: 09/23/17 07:17 Dose: Not Given Levalbuterol HCl (Xopenex) 0.63 mg IH [id number] [facility] Last Admin: 09/23/17 07:36 Dose: 0.63 mg Lorazepam (Ativan) 2 mg IVP Q3H PRN; Protocol PRN Reason: Agitation Last Admin: 09/23/17 00:10 Dose: 2 mg Multivitamins/Vitamin C (Multi-Delyn Liquid) 15 ml PO 0800 [facility] Last Admin: 09/23/17 09:35 Dose: 15 ml Pantoprazole Sodium (Protonix Inj) 40 mg IVP Q12 [facility] Last Admin: 09/23/17 09:34 Dose: 40 mg Thiamine HCl (Vitamin B1 Inj) 100 mg IV DAILY [facility] Last Admin: 09/23/17 10:10 Dose: 100 mg Tobramycin/Dexamethasone (Tobradex Opht Susp) 0 ml OU QID [facility] Last Admin: 09/23/17 10:10 Dose: 1 drop Vitamin A (Vitamin A & D Oint Ud Foilpak) 1 ea TOP Q8 PRN PRN Reason: Dry skin Last Admin: 09/17/17 18:41 Dose: 1 ea - Labs Labs: 09/23/17 07:45 09/23/17 07:45 PT 13.5 SECONDS (9.4-12.5) H 09/23/17 07:45 INR 1.17 (0.93-1.08) H 09/23/17 07:45 APTT 32.4 Seconds (25.1-36.5) 09/17/17 05:45 - Constitutional Appears: No Acute Distress - Head Exam Head Exam: NORMAL INSPECTION - Neurological Exam Neurological Exam: Alert, Awake Neuro motor strength exam: Left Upper Extremity: 4, Right Upper Extremity: 4, Left Lower Extremity: 4, Right Lower Extremity: 4 Additional comments: Neurological improved from previous examination. Assessment and Plan (1) Seizure Assessment & Plan: Case discussed with Dr. Remy, continue all current medical, physical, and occupational therapies. Recommend repeat EEG to evaluate seizure. Status: Acute
--- NOTE | 2017-09-23 12:16 | CP.PCM.PN ---
Subjective - Date & Time of Evaluation Date of Evaluation: 09/23/17 Time of Evaluation: 11:30 - Subjective Subjective: Patient seen and examined this AM. Patient sitting at bedside with no respiratory distress, GCS 11T. Patient's inner cannula has a manlfunction where it is not firmly set in place but is still functioning. Objective - Vital Signs/Intake and Output Vital Signs (last 24 hours): Temp Pulse Resp BP Pulse Ox 98.6 F 76 19 191/115 H 100 09/23/17 00:00 09/23/17 08:51 09/23/17 07:36 09/23/17 08:51 09/23/17 07:36 - Medications Medications: Current Medications Artificial Tears (Refresh Opth Soln) 0.3 ml OU Q12 PRN PRN Reason: Dry eyes Last Admin: 09/17/17 21:43 Dose: 0.3 ml Budesonide (Pulmicort Respules) 0.5 mg IH [id number] [facility] Last Admin: 09/23/17 07:36 Dose: 0.5 mg Clonidine HCl (Catapres Tts1 0.1 Mg/24 Hr) 1 patch TD Q7D@1000 [facility] Last Admin: 09/22/17 09:56 Dose: 1 patch Folic Acid (Folic Acid) 1 mg NG DAILY [facility] Last Admin: 09/23/17 09:36 Dose: 1 mg Heparin Sodium (Porcine) (Heparin) 5,000 units SC Q12 [facility]IA PRN Reason: Protocol Last Admin: 09/23/17 09:36 Dose: 5,000 units Hydralazine HCl (Apresoline) 10 mg IVP Q6 PRN PRN Reason: BP> 180 Last Admin: 09/23/17 08:51 Dose: 10 mg Levetiracetam 1,000 mg/ Sodium (Chloride) 110 mls @ 460 mls/hr IV Q12 [facility] Last Admin: 09/23/17 09:35 Dose: 460 mls/hr Insulin Detemir (Levemir) 15 unit SC HS [facility] Last Admin: 09/22/17 22:12 Dose: 15 unit Insulin Human Lispro (Humalog High) 0 units SC Q6H [facility]IA PRN Reason: Protocol Last Admin: 09/23/17 07:17 Dose: Not Given Levalbuterol HCl (Xopenex) 0.63 mg IH [id number] [facility] Last Admin: 09/23/17 07:36 Dose: 0.63 mg Lorazepam (Ativan) 2 mg IVP Q3H PRN; Protocol PRN Reason: Agitation Last Admin: 09/23/17 00:10 Dose: 2 mg Multivitamins/Vitamin C (Multi-Delyn Liquid) 15 ml PO 0800 [facility] Last Admin: 09/23/17 09:35 Dose: 15 ml Pantoprazole Sodium (Protonix Inj) 40 mg IVP Q12 [facility] Last Admin: 09/23/17 09:34 Dose: 40 mg Thiamine HCl (Vitamin B1 Inj) 100 mg IV DAILY [facility] Last Admin: 09/23/17 10:10 Dose: 100 mg Tobramycin/Dexamethasone (Tobradex Opht Susp) 0 ml OU QID [facility] Last Admin: 09/23/17 10:10 Dose: 1 drop Vitamin A (Vitamin A & D Oint Ud Foilpak) 1 ea TOP Q8 PRN PRN Reason: Dry skin Last Admin: 09/17/17 18:41 Dose: 1 ea - Labs Labs: 09/23/17 07:45 09/23/17 07:45 PT 13.5 SECONDS (9.4-12.5) H 09/23/17 07:45 INR 1.17 (0.93-1.08) H 09/23/17 07:45 APTT 32.4 Seconds (25.1-36.5) 09/17/17 05:45 - Constitutional Appears: Well, Non-toxic, No Acute Distress - Head Exam Head Exam: ATRAUMATIC, NORMOCEPHALIC - Eye Exam Eye Exam: Normal appearance. absent: Conjunctival injection, Scleral icterus - ENT Exam ENT Exam: Mucous Membranes Moist, Normal Oropharynx - Respiratory Exam Respiratory Exam: NORMAL BREATHING PATTERN. absent: Accessory Muscle Use, Respiratory Distress Additional comments: mechanically ventillated - Cardiovascular Exam Cardiovascular Exam: RRR - Neurological Exam Neurological Exam: Alert, Awake, Oriented x3 Additional comments: GCS: 11T - Psychiatric Exam Psychiatric exam: Normal Affect, Normal Mood Assessment and Plan - Assessment and Plan (Free Text) Assessment: 47 year old male who is POD #4 for open tracheostomy and open Shereen gastrostomy tube placement. Plan: - Continue tube feeds through gastrostomy tube per Primary recs. - Check residual every 4 hours; if greater than 500 ml, then hold tube feeds. Flush every four hours with 100 ml of water. - Will replace tracheostomy tube at bedside tomorrow - Will remove gastrostomy sutures/sarah on 09/29/17 (POD #10). - Continue with medical management Seen and examined with Dr. Samy Underwood, PGY2
--- NOTE | 2017-09-23 12:39 | CP.PCM.PN ---
<Kaylie Dunn - Last Filed: 09/23/17 12:49> Subjective - Date & Time of Evaluation Date of Evaluation: 09/23/17 Time of Evaluation: 07:00 - Subjective Subjective: Dr. Machado Service Patient seen and examined at bedside. He is awake, alert and following commands. He denies fever, chills, chest pains, shortness of breath, chest pain , fever/chills, numbness/tingling. Trach is in place and patient is comfortable without any respiratory issues. Chance in place draining susannah urine. No acute complaints at this time. Objective - Vital Signs/Intake and Output Vital Signs (last 24 hours): Temp Pulse Resp BP Pulse Ox 98.6 F 76 19 191/115 H 100 09/23/17 00:00 09/23/17 08:51 09/23/17 07:36 09/23/17 08:51 09/23/17 07:36 - Medications Medications: Current Medications Artificial Tears (Refresh Opth Soln) 0.3 ml OU Q12 PRN PRN Reason: Dry eyes Last Admin: 09/17/17 21:43 Dose: 0.3 ml Budesonide (Pulmicort Respules) 0.5 mg IH [id number] [facility] Last Admin: 09/23/17 07:36 Dose: 0.5 mg Clonidine HCl (Catapres Tts1 0.1 Mg/24 Hr) 1 patch TD Q7D@1000 [facility] Last Admin: 09/22/17 09:56 Dose: 1 patch Folic Acid (Folic Acid) 1 mg NG DAILY [facility] Last Admin: 09/23/17 09:36 Dose: 1 mg Heparin Sodium (Porcine) (Heparin) 5,000 units SC Q12 [facility]IA PRN Reason: Protocol Last Admin: 09/23/17 09:36 Dose: 5,000 units Hydralazine HCl (Apresoline) 10 mg IVP Q6 PRN PRN Reason: BP> 180 Last Admin: 09/23/17 08:51 Dose: 10 mg Levetiracetam 1,000 mg/ Sodium (Chloride) 110 mls @ 460 mls/hr IV Q12 [facility] Last Admin: 09/23/17 09:35 Dose: 460 mls/hr Insulin Detemir (Levemir) 15 unit SC HS [facility] Last Admin: 09/22/17 22:12 Dose: 15 unit Insulin Human Lispro (Humalog High) 0 units SC Q6H [facility]IA PRN Reason: Protocol Last Admin: 09/23/17 07:17 Dose: Not Given Levalbuterol HCl (Xopenex) 0.63 mg IH [id number] [facility] Last Admin: 09/23/17 07:36 Dose: 0.63 mg Lorazepam (Ativan) 2 mg IVP Q3H PRN; Protocol PRN Reason: Agitation Last Admin: 09/23/17 00:10 Dose: 2 mg Multivitamins/Vitamin C (Multi-Delyn Liquid) 15 ml PO 0800 [facility] Last Admin: 09/23/17 09:35 Dose: 15 ml Pantoprazole Sodium (Protonix Inj) 40 mg IVP Q12 [facility] Last Admin: 09/23/17 09:34 Dose: 40 mg Thiamine HCl (Vitamin B1 Inj) 100 mg IV DAILY [facility] Last Admin: 09/23/17 10:10 Dose: 100 mg Tobramycin/Dexamethasone (Tobradex Opht Susp) 0 ml OU QID [facility] Last Admin: 09/23/17 10:10 Dose: 1 drop Vitamin A (Vitamin A & D Oint Ud Foilpak) 1 ea TOP Q8 PRN PRN Reason: Dry skin Last Admin: 09/17/17 18:41 Dose: 1 ea - Labs Labs: 09/23/17 07:45 09/23/17 07:45 PT 13.5 SECONDS (9.4-12.5) H 09/23/17 07:45 INR 1.17 (0.93-1.08) H 09/23/17 07:45 APTT 32.4 Seconds (25.1-36.5) 09/17/17 05:45 - Constitutional Appears: No Acute Distress - Head Exam Head Exam: ATRAUMATIC, NORMAL INSPECTION, NORMOCEPHALIC - Eye Exam Eye Exam: EOMI, Normal appearance, PERRL Pupil Exam: NORMAL ACCOMODATION, PERRL - ENT Exam ENT Exam: Mucous Membranes Moist, Normal Exam Additional comments: trach in place - Respiratory Exam Respiratory Exam: Rhonchi, NORMAL BREATHING PATTERN - Cardiovascular Exam Cardiovascular Exam: REGULAR RHYTHM, +S1, +S2. absent: Murmur - GI/Abdominal Exam GI & Abdominal Exam: Soft, Normal Bowel Sounds. absent: Tenderness - Extremities Exam Extremities Exam: Pedal Edema - Neurological Exam Neurological Exam: Alert, Awake, CN II-XII Intact - Psychiatric Exam Psychiatric exam: Normal Affect, Normal Mood - Skin Skin Exam: Dry, Intact, Normal Color, Warm Assessment and Plan - Assessment and Plan (Free Text) Assessment: 47 M with a PMH of DM2, HTN and alcohol use who presented with URI symptoms such as cough, shortness of breath, palpitations. Last alcoholic drink was night prior to admission. Patient was admitted for septic shock (with lactate of 7.7 on presentation), high anion gap metabolic acidosis, acute pancreatitis 2 /2 ETOH vs triglycerides, IRWIN vs CKD, elevated LFTs likely 2/2 ETOH, elevated BNP, hyponatremia, and hypokalemia. s/p cardiac arrest and ROSC. Upon ROSC, patient vomited and likely aspirated, but was turned to the side and suctioned. Intubated and on vent with sedation in ICU. Patient initially required pressors to maintain BP but is no longer needing them. Remains on Keppra for seizure ppx. IRWIN has improved and urine production has increased, patient s/p 6 sessions of temporary dialysis and currently. Patient is POD3 trach/peg. Patient has no access for dialysis and currently doesn't require dialysis per Nephro as renal function is improving and urine output is adequate. Pt is pending placement to LTAC 1. Septic shock likely 2/2 pancreatitis, resolved - no fevers overnight, leukocytosis is resolving. Blood and urine culture negative. Tracheostomy culture is positive for Escherichia coli. - cont tube feeds through gastrostomy per surgery/ICU team - cont contact precautions for c.diff infection - tylenol PRN - ID consulted, finished all courses of abx - GI consulted, recs appreciated. T collar as tolerated - Surgery consulted, recs appreciated - Palliative care consulted for advanced directives, patient will be transferred to terminal supervisor acute center pending authorization 2. AMS 2/2 Anion gap metabolic acidosis likely 2/2 lactic acidosis and ETOH, improving today - s/p cardiac arrest 09/08 - s/p endotacheal intubation due to hypoxemia and vomiting to reduce risk of aspiration - s/p tracheostomy - CT Head showed no acute intracranial abnormalities and mild chronic microangiopathic changes, w/ moderate global parencyhmal volume loss - ativan prn agitation - Maintain SaO2 > 90% - EEG was normal - cont Keppra for seizure ppx - Neurology consulted, recs appreciated - Cardiology consulted, recs appreciated 3. IRWIN vs CKD a/w Hypomagnesemia - s/p 6 dialysis sessions - avoid nephrotoxins - Electrolyte imbalances will be repleted as needed - Nephrology consulted, currently off hemodialysis. urine output is increasing.creatinine stabilized. 4. HTN - clonidine patch q7d - hydralazine prn - monitor VS 5. Hypergylcemia - hypoglycemic overnight, corrected - Levemir 15u HS - ISS 6. 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 Transaminitis likely w/ underlying liver disease, improving - likely 2/2 shock liver and chronic ETOH use since INR is elevated - cont thiamine, MV and folic acid - hepatitis panel negative - continue to monitor 8. Poor prognosis - discuss with family/ poor prognosis and long-term plane - Palliative care consulted - patient for LTAC pending authorization Patient was seen, examined and discussed with attending, Dr. Machado <Tatum Machado - Last Filed: 09/23/17 13:48> Objective - Vital Signs/Intake and Output Vital Signs (last 24 hours): Temp Pulse Resp BP Pulse Ox 98.6 F 76 19 191/115 H 100 09/23/17 00:00 09/23/17 08:51 09/23/17 07:36 09/23/17 08:51 09/23/17 07:36 - Medications Medications: Current Medications Artificial Tears (Refresh Opth Soln) 0.3 ml OU Q12 PRN PRN Reason: Dry eyes Last Admin: 09/17/17 21:43 Dose: 0.3 ml Budesonide (Pulmicort Respules) 0.5 mg IH [id number] [facility] Last Admin: 09/23/17 07:36 Dose: 0.5 mg Clonidine HCl (Catapres Tts1 0.1 Mg/24 Hr) 1 patch TD Q7D@1000 [facility] Last Admin: 09/22/17 09:56 Dose: 1 patch Folic Acid (Folic Acid) 1 mg NG DAILY [facility] Last Admin: 09/23/17 09:36 Dose: 1 mg Heparin Sodium (Porcine) (Heparin) 5,000 units SC Q12 [facility]IA PRN Reason: Protocol Last Admin: 09/23/17 09:36 Dose: 5,000 units Hydralazine HCl (Apresoline) 10 mg IVP Q6 PRN PRN Reason: BP> 180 Last Admin: 09/23/17 08:51 Dose: 10 mg Levetiracetam 1,000 mg/ Sodium (Chloride) 110 mls @ 460 mls/hr IV Q12 [facility] Last Admin: 09/23/17 09:35 Dose: 460 mls/hr Insulin Detemir (Levemir) 15 unit SC HS [facility] Last Admin: 09/22/17 22:12 Dose: 15 unit Insulin Human Lispro (Humalog High) 0 units SC Q6H DENIA PRN Reason: Protocol Last Admin: 09/23/17 07:17 Dose: Not Given Levalbuterol HCl (Xopenex) 0.63 mg IH [id number] [facility] Last Admin: 09/23/17 13:40 Dose: 0.63 mg Lorazepam (Ativan) 2 mg IVP Q3H PRN; Protocol PRN Reason: Agitation Last Admin: 09/23/17 00:10 Dose: 2 mg Multivitamins/Vitamin C (Multi-Delyn Liquid) 15 ml PO 0800 [facility] Last Admin: 09/23/17 09:35 Dose: 15 ml Pantoprazole Sodium (Protonix Inj) 40 mg IVP Q12 [facility] Last Admin: 09/23/17 09:34 Dose: 40 mg Thiamine HCl (Vitamin B1 Inj) 100 mg IV DAILY [facility] Last Admin: 09/23/17 10:10 Dose: 100 mg Tobramycin/Dexamethasone (Tobradex Opht Susp) 0 ml OU QID [facility] Last Admin: 09/23/17 10:10 Dose: 1 drop Vitamin A (Vitamin A & D Oint Ud Foilpak) 1 ea TOP Q8 PRN PRN Reason: Dry skin Last Admin: 09/17/17 18:41 Dose: 1 ea - Labs Labs: 09/23/17 07:45 09/23/17 07:45 PT 13.5 SECONDS (9.4-12.5) H 09/23/17 07:45 INR 1.17 (0.93-1.08) H 09/23/17 07:45 APTT 32.4 Seconds (25.1-36.5) 09/17/17 05:45 Attending/Attestation - Attestation I have personally seen and examined this patient.: Yes I have fully participated in the care of the patient.: Yes I have reviewed all pertinent clinical information, including history, physical exam and plan: Yes Notes (Text): 09/23/17 13:43 Attending note; Patient seen and examined with resident in ICU. patient is alert and awake. Able to communicate. Patient is a 47 year male with history of alcohol abuse, type 2 diabetes who came initially for abdominal pain and dyspnea. He was found to be severely acidotic and was diagnosed with alcoholic pancreatitis. Patient is post cardiac arrest. s/p Trach and gastrostomy tube placement. patient is more alert. leukocytosis resolved. Completed antibiotics. C. difficile colitis: completed PO vancomycin. diarrhea resolved. acute kidney injury due to SIRS vs ATN/oliguric renal failure ; resolved. urine output is increasing.creatinine stabilized. no need for dialysis. Continue seizure precautions, keppra, thiamine, folate and MVI. Elevated LFT due to shock liver/alcohol abuse. IMproved. anemia and thrombocytopenia due to alcohol induced BM suppression vs sepsis; improved significantly. case discussed with social organization professor in detail. Pending authorization for LTAC placement.
[2017-09-23] MEDS ORDERED: Potassium Chloride 20 mEq ER Tab PO ONE (12:59)
--- NOTE | 2017-09-23 13:00 | CP.PCM.PN ---
Subjective - Date & Time of Evaluation Date of Evaluation: 09/23/17 Time of Evaluation: 12:59 - Subjective Subjective: RENAL FOLLOW UP Assessment: critical Acute Kidney Injury (N17.9) likely due to pre-renal state, SIRS, Acute tubular necrosis Hypernatermia hypomagnesemia hypokalemia DM, HTN, chronic alcoholism, hepatic dysfunction acute pancreatitis with hyperglycemia HAGMA with lactic acidosis + alcohol ketoacidosis and starvation ketoacidosis Thrombocytopenia hyperphosphatemia s/p cardiac arrest, seizure ARDS Plan UOP remains excellent last hd was on 09/19 continue to hold anemia s/p aranesp 09/20 monitor phos levels ordered additional 20 meq of k inc free water flush to 250 q 4 replete mag S: seen and examined, trach Physical Examination: General Appearance: ill appearing. on vent Vitals reviewed and noted as below Head; Atraumatic, normocephalic ENT: clear op Neck; supple + trach Lungs: dec bs at bases mechanical bs Heart: Increased rate. s1s2 normal. No rub or gallop. Extremities: 1+ edema. No varicose veins Neurological: Patient is sedated Skin: Warm and dry. Abdomen: Abdomen is soft. Bowel sounds decreased has rectal tube Psych: unable to assess MSK: no joint tenderness Objective - Vital Signs/Intake and Output Vital Signs (last 24 hours): Temp Pulse Resp BP Pulse Ox 98.6 F 76 19 191/115 H 100 09/23/17 00:00 09/23/17 08:51 09/23/17 07:36 09/23/17 08:51 09/23/17 07:36 - Medications Medications: Current Medications Artificial Tears (Refresh Opth Soln) 0.3 ml OU Q12 PRN PRN Reason: Dry eyes Last Admin: 09/17/17 21:43 Dose: 0.3 ml Budesonide (Pulmicort Respules) 0.5 mg IH [id number] [facility] Last Admin: 09/23/17 07:36 Dose: 0.5 mg Clonidine HCl (Catapres Tts1 0.1 Mg/24 Hr) 1 patch TD Q7D@1000 [facility] Last Admin: 09/22/17 09:56 Dose: 1 patch Folic Acid (Folic Acid) 1 mg NG DAILY [facility] Last Admin: 09/23/17 09:36 Dose: 1 mg Heparin Sodium (Porcine) (Heparin) 5,000 units SC Q12 [facility] PRN Reason: Protocol Last Admin: 09/23/17 09:36 Dose: 5,000 units Hydralazine HCl (Apresoline) 10 mg IVP Q6 PRN PRN Reason: BP> 180 Last Admin: 09/23/17 08:51 Dose: 10 mg Levetiracetam 1,000 mg/ Sodium (Chloride) 110 mls @ 460 mls/hr IV Q12 [facility] Last Admin: 09/23/17 09:35 Dose: 460 mls/hr Insulin Detemir (Levemir) 15 unit SC HS [facility] Last Admin: 09/22/17 22:12 Dose: 15 unit Insulin Human Lispro (Humalog High) 0 units SC Q6H [facility] PRN Reason: Protocol Last Admin: 09/23/17 07:17 Dose: Not Given Levalbuterol HCl (Xopenex) 0.63 mg IH [id number] [facility] Last Admin: 09/23/17 07:36 Dose: 0.63 mg Lorazepam (Ativan) 2 mg IVP Q3H PRN; Protocol PRN Reason: Agitation Last Admin: 09/23/17 00:10 Dose: 2 mg Multivitamins/Vitamin C (Multi-Delyn Liquid) 15 ml PO 0800 [facility] Last Admin: 09/23/17 09:35 Dose: 15 ml Pantoprazole Sodium (Protonix Inj) 40 mg IVP Q12 [facility] Last Admin: 09/23/17 09:34 Dose: 40 mg Thiamine HCl (Vitamin B1 Inj) 100 mg IV DAILY [facility] Last Admin: 09/23/17 10:10 Dose: 100 mg Tobramycin/Dexamethasone (Tobradex Opht Susp) 0 ml OU QID [facility] Last Admin: 09/23/17 10:10 Dose: 1 drop Vitamin A (Vitamin A & D Oint Ud Foilpak) 1 ea TOP Q8 PRN PRN Reason: Dry skin Last Admin: 09/17/17 18:41 Dose: 1 ea - Labs Labs: 09/23/17 07:45 09/23/17 07:45 PT 13.5 SECONDS (9.4-12.5) H 09/23/17 07:45 INR 1.17 (0.93-1.08) H 09/23/17 07:45 APTT 32.4 Seconds (25.1-36.5) 09/17/17 05:45
--- NOTE | 2017-09-23 18:48 | PN ---
DATE: 09/23/2017 SUBJECTIVE: The patient is in bed, was seen early this morning in the ICU 128, bed 4. Patient appears to be more stable. PHYSICAL EXAMINATION: VITAL SIGNS: Temperature is 98, blood pressure is 190/100, respiratory rate of 16. HEENT: Unremarkable. NECK: Supple. LUNGS: Decreased breath sounds. HEART: Normal S1, S2. ABDOMEN: Soft, nontender. LABORATORY DATA: Reveals the patient's white count is 6.9, hemoglobin of 7, platelets of 265. Coagulation is noted. Chemistries reveals the BUN of 16, creatinine of 1.1 and procalcitonin is 2.76. ASSESSMENT AND PLAN: This is a 47-year-old male, who was seen earlier this morning in the ICU with ventilatory dependent respiratory failure with severe sepsis, acute renal failure on top of acute alcoholic pancreatitis. He did have Clostridium difficile antigen positive, acute alcoholic pancreatitis and healthcare associated pneumonia with Escherichia coli in the sputum and on day #14 of p.o. vancomycin and day #7 of cefazolin for E. coli in the sputum, and patient is doing well, normal white count, afebrile. We will discontinue the cefazolin and patient is off of p.o. vancomycin. We will follow the patient closely for development of new infection off of antibiotics. He is at risk for developing new nosocomial infections. Jason Oreilly MD
[2017-09-24] MEDS: Insulin Lispro (HUMAlog) HIGH Coverage SC SCH ×3 (01:30→12:40)
[2017-09-24] MEDS: Levalbuterol 0.63 MG/3 ML Inhal Soln UD IH SCH ×5 (02:14→19:22)
--- NOTE | 2017-09-24 03:46 | PN ---
DATE: 09/23/2017 SUBJECTIVE: This patient was seen and evaluated earlier today. The patient is comfortable, more alert, and following commands now. PHYSICAL EXAMINATION HEENT: Atraumatic, anicteric. NECK: Tracheostomy present. HEART: S1 and S2 heard. LUNGS: Bilateral air entry present. ABDOMEN: Soft. PEG tube in place. LABORATORY DATA: Hemoglobin 7.4, hematocrit 23.7, WBC 6.9, and platelets 265. Chemistry: Potassium 3.1, BUN 16, and creatinine 1.1. IMPRESSION: This is a 47-year-old patient with a history of diabetes mellitus, hypertension, and alcohol use, admitted with acute pancreatitis and sepsis, status post cardiac arrest, who has had esophagogastroduodenoscopy and tracheostomy done - surgical placement of the GT done in view of this grade D esophageal ulceration. The patient has significant anemia. Hemoglobin was 7.7 before - now, it is 7.4 - slight drop in hemoglobin noticed. The patient is on Protonix. The concern is grade D esophagitis with anemia. The patient needs to be on iron supplement and transfusion as needed. The patient needs high-dose PPI. The patient will be started on p.o. if the swallowing study is okay; however, the patient should be only kept on a puree diet until he has a repeat endoscopy done to evaluate the ulceration. The patient did have a 5-cm long circumferential esophageal ulceration, grade D. The patient did have contact bleeding with scope. It is reasonable to keep the patient on only pureed diet even if the patient is able to tolerate the solid until the repeat endoscopy is done. I have discussed with the nursing staff who is taking care of the patient at length. Thank you very much for allowing us to participate in the care of the patient. Yogi Fernandez MD [facility]
[2017-09-24 05:26] LABS: ARTERIAL BLOOD GAS HCO3 18.9 mmol/L (21-28); ARTERIAL BLOOD GAS HEMOGLOBIN 7.2 g/dL (11.7-17.4); ARTERIAL BLOOD GAS O2 CAPACITY 10.2 mL/dl (16-24); ARTERIAL BLOOD GAS O2 CONTENT 10.2 ML/dl (15-23); ARTERIAL BLOOD GAS O2 SAT 99.6 % (95-98); ARTERIAL BLOOD GAS PCO2 32 mm/Hg (35-45); ARTERIAL BLOOD GAS PH 7.38 (7.35-7.45); ARTERIAL BLOOD GAS TCO2 19.9 mmol.L (22-28)
[2017-09-24 06:47] LABS: BASO # 0.05 K/mm3 (0.0-2.0); BASO % 0.6 % (0.0-3.0); EOS % 0.2 % (1.5-5.0); GRAN # 6.2 (1.4-6.5); GRAN % 71.3 % (50.0-68.0); LYMPH # 1.8 (1.2-3.4); MEAN CELL VOLUME 97.9 fl (80.0-105.0); MEAN CORPUSCULAR HEMOGLOBIN 30.5 pg (25.0-35.0); MEAN CORPUSCULAR HGB CONC 31.2 g/dl (31.0-37.0); MEAN PLATELET VOLUME 10.4 fl (7.0-11.0); MONO # 0.6 (0.1-0.6); MONO % 6.9 % (1.0-6.0); RBC 2.36 10^6/uL (3.5-6.1); RED CELL DISTRIBUTION WIDTH 16.4 % (11.5-14.5); WHITE BLOOD COUNT 8.7 10^3/ul (4.5-11.0)
[2017-09-24 07:02] LABS: ALB/GLOB RATIO 0.6 (1.1-1.8); ALBUMIN 2.5 g/dL (3.0-4.8); ALT/SGPT 21 U/L (7-56); AST/SGOT 28 U/L (17-59); BLOOD UREA NITROGEN 12 mg/dL (7-21); GFR AFRICAN-AMERICAN > 60; GFR NON-AFRICAN AMERICAN > 60; MAGNESIUM 1.5 mg/dL (1.7-2.2)
[2017-09-24 07:19] LABS: HEMOGLOBIN 7.2 g/dL (14.0-18.0)
[2017-09-24 07:28] LABS: INR 1.13 (0.93-1.08)
[2017-09-24] MEDS ORDERED: Potassium Chloride 40 mEq/30 ml LIQ UD PO ONE (07:31)
[2017-09-24] MEDS: Budesonide 0.5 mg/2 ml Inhal Susp UD IH SCH (07:40)
--- NOTE | 2017-09-24 08:30 | CP.PCM.PN ---
<Jay Harden - Last Filed: 09/24/17 10:56> Subjective - Date & Time of Evaluation Date of Evaluation: 09/24/17 Time of Evaluation: 08:28 - Subjective Subjective: Jay Harden PGY1 ICU Note for Dr. Bustamante Patient was seen and examined at bedside. He is more alert and responsive today off sedation. Following all simple commands. Still unable to vocalize words. No acute overnight events. Objective - Vital Signs/Intake and Output Vital Signs (last 24 hours): Temp Pulse Resp BP Pulse Ox 100.1 F H 86 20 159/102 H 100 09/24/17 04:00 09/24/17 07:45 09/24/17 07:45 09/24/17 07:45 09/24/17 07:45 Intake and Output: 09/24/17 09/24/17 06:59 18:59 Intake Total 120 Output Total 1350 Balance -1230 - Medications Medications: Current Medications Artificial Tears (Refresh Opth Soln) 0.3 ml OU Q12 PRN PRN Reason: Dry eyes Last Admin: 09/17/17 21:43 Dose: 0.3 ml Clonidine HCl (Catapres Tts1 0.1 Mg/24 Hr) 1 patch TD Q7D@1000 [facility] Last Admin: 09/22/17 09:56 Dose: 1 patch Folic Acid (Folic Acid) 1 mg NG DAILY [facility] Last Admin: 09/23/17 09:36 Dose: 1 mg Heparin Sodium (Porcine) (Heparin) 5,000 units SC Q12 [facility]IA PRN Reason: Protocol Last Admin: 09/23/17 22:05 Dose: 5,000 units Hydralazine HCl (Apresoline) 10 mg IVP Q6 PRN PRN Reason: BP> 180 Last Admin: 09/23/17 14:44 Dose: 10 mg Levetiracetam 1,000 mg/ Sodium (Chloride) 110 mls @ 460 mls/hr IV Q12 [facility] Last Admin: 09/23/17 22:06 Dose: 460 mls/hr Insulin Detemir (Levemir) 15 unit SC HS [facility] Last Admin: 09/22/17 22:12 Dose: 15 unit Insulin Human Lispro (Humalog High) 0 units SC Q6H DENIA PRN Reason: Protocol Last Admin: 09/24/17 07:00 Dose: Not Given Levalbuterol HCl (Xopenex) 0.63 mg IH [id number] [facility] Last Admin: 09/24/17 07:40 Dose: 0.63 mg Lorazepam (Ativan) 2 mg IVP Q3H PRN; Protocol PRN Reason: Agitation Last Admin: 09/23/17 00:10 Dose: 2 mg Multivitamins/Vitamin C (Multi-Delyn Liquid) 15 ml PO 0800 [facility] Last Admin: 09/23/17 09:35 Dose: 15 ml Pantoprazole Sodium (Protonix Inj) 40 mg IVP Q12 [facility] Last Admin: 09/23/17 22:07 Dose: 40 mg Thiamine HCl (Vitamin B1 Inj) 100 mg IV DAILY [facility] Last Admin: 09/23/17 10:10 Dose: 100 mg Vitamin A (Vitamin A & D Oint Ud Foilpak) 1 ea TOP Q8 PRN PRN Reason: Dry skin Last Admin: 09/17/17 18:41 Dose: 1 ea - Labs Labs: 09/24/17 05:50 09/24/17 05:50 PT 13.0 SECONDS (9.4-12.5) H 09/24/17 05:50 INR 1.13 (0.93-1.08) H 09/24/17 05:50 APTT 32.4 Seconds (25.1-36.5) 09/17/17 05:45 - Constitutional Appears: Well, Non-toxic, No Acute Distress - Head Exam Head Exam: ATRAUMATIC, NORMAL INSPECTION - Eye Exam Eye Exam: EOMI, Normal appearance, PERRL, Scleral icterus - ENT Exam ENT Exam: Mucous Membranes Moist Additional comments: s/p tracheostomy trach collar in place - Neck Exam Neck Exam: Normal Inspection - Respiratory Exam Respiratory Exam: NORMAL BREATHING PATTERN. absent: Rales, Rhonchi, Wheezes - Cardiovascular Exam Cardiovascular Exam: RRR, +S1, +S2 - GI/Abdominal Exam GI & Abdominal Exam: Soft, Normal Bowel Sounds. absent: Distended, Tenderness Additional comments: s/p peg tube getting tube feeds - Exam Additional comments: lazo catheter in place draining urine (non-bloody) - Extremities Exam Extremities Exam: Full ROM, Normal Inspection - Back Exam Back Exam: NORMAL INSPECTION - Neurological Exam Neurological Exam: Alert, Awake Additional comments: full active ROM x4 extremities unable to vocalize words follows simple commands - Psychiatric Exam Psychiatric exam: Normal Affect, Normal Mood - Skin Skin Exam: Normal Color, Warm Assessment and Plan - Assessment and Plan (Free Text) Assessment: 47yo male with past medical history with DM, HTN, and EtOH abuse admitted for septic shock secondary to pancreatitis, aspiration pneumonia, IRWIN (resolved), seizures from ETOH withdrawal, thrombocytopenia (from EtOH- resolved), cardiac arrest s/p ROSC with resp failure. Patient is s/p trach and peg. Plan: Neuro: Awake and alert with trach- off sedation Continue Keppra- Seizure precautions Ativan prn cont thiamine, folic acid and MV Neuro consulted- recs appreciated Maintain normothemia CV: Cardiac arrest s/p ROSC on admission Patient is HD stable Cardio consulted- recs appreciated start norvasc 5 daily Continue Clonidine patch weekly, hydralazine prn Maintain MAP >65 Monitor I&O Pulm: s/p trach 09/19/17- trach clip malfunctioning- will be replaced as per surgery if needed Patient is on trach collar as tolerated Maintain SpO2>92% Protective lung ventilation strategy HOB elevated and aspiration precaution Pulm consulted- recs appreciated Continue Xopenex, Pulmicort GI: Pancreatitis resolved and transaminitis resolved EGD showed esophageal ulcer GI consulted- recs appreciated Surg consulted- recs appreciated s/p peg tube- continue tube feeds Heme: Anemia- hgb stable Hgb: 7.7- stable Transfusion threshold is 7.0 Will continue to monitor H/H Nephro: Hypokalemia, Hypomangesemia; replete Will increase free water flushes with feeds for hypernatremia Will continue to monitor electrolytes and replace as needed Nephro consulted- recs appreciated Urine output adequate - as per nephro, patient will not need HD Maintain euvolemia Monitor I&O ID: C Diff positive s/p treatment; repeat c. diff cultures negative As per ID- will d/c contact precautions after finished treatment Trach culture: E Coli Afebrile, no leukocytosis ID consulted- recs appreciated off antibiotics at this time Tylenol PRN fevers Endo: Hx of DM Levemir 15 units SC HS ISS Maintain euglycemia 140-180s GI ppx: Protonix 40mg DVT ppx: Heparin SC Diet: Continue tube feeds Dispo: Transfer to med-surg once trach collar is replaced, if surgery team feels collar is still needed. Palliative care consulted. Patient pending transfer to LTAC Patient was seen, examined and discussed with attending, Dr. Dianna Harden PGY1 Pager # [phone] <Santosh Bustamante - Last Filed: 09/24/17 11:41> Objective - Vital Signs/Intake and Output Vital Signs (last 24 hours): Temp Pulse Resp BP Pulse Ox 100.1 F H 111 H 20 158/108 H 100 09/24/17 04:00 09/24/17 10:44 09/24/17 07:45 09/24/17 10:44 09/24/17 07:45 Intake and Output: 09/24/17 09/24/17 06:59 18:59 Intake Total 120 Output Total 1350 Balance -1230 - Medications Medications: Current Medications Acetaminophen (Tylenol 325mg Tab) 650 mg PO Q4 PRN PRN Reason: Fever >100.4 F Amlodipine Besylate (Norvasc) 5 mg PO DAILY [facility] Last Admin: 09/24/17 10:44 Dose: 5 mg Artificial Tears (Refresh Opth Soln) 0.3 ml OU Q12 PRN PRN Reason: Dry eyes Last Admin: 09/17/17 21:43 Dose: 0.3 ml Clonidine HCl (Catapres Tts1 0.1 Mg/24 Hr) 1 patch TD Q7D@1000 [facility] Last Admin: 09/22/17 09:56 Dose: 1 patch Folic Acid (Folic Acid) 1 mg NG DAILY [facility] Last Admin: 09/24/17 09:15 Dose: 1 mg Heparin Sodium (Porcine) (Heparin) 5,000 units SC Q12 [facility] PRN Reason: Protocol Last Admin: 09/24/17 09:15 Dose: 5,000 units Hydralazine HCl (Apresoline) 10 mg IVP Q6 PRN PRN Reason: BP> 180 Last Admin: 09/24/17 09:16 Dose: 10 mg Levetiracetam 1,000 mg/ Sodium (Chloride) 110 mls @ 460 mls/hr IV Q12 [facility] Last Admin: 09/24/17 09:51 Dose: 460 mls/hr Magnesium Sulfate 2 gm/ Sodium (Chloride) 104 mls @ 102 mls/hr IVPB ONCE ONE Stop: 09/24/17 12:08 Insulin Detemir (Levemir) 15 unit SC HS [facility] Last Admin: 09/22/17 22:12 Dose: 15 unit Insulin Human Lispro (Humalog High) 0 units SC Q6H [facility]IA PRN Reason: Protocol Last Admin: 09/24/17 07:00 Dose: Not Given Levalbuterol HCl (Xopenex) 0.63 mg IH [id number] [facility] Last Admin: 09/24/17 07:40 Dose: 0.63 mg Lorazepam (Ativan) 2 mg IVP Q3H PRN; Protocol PRN Reason: Agitation Last Admin: 09/23/17 00:10 Dose: 2 mg Multivitamins/Vitamin C (Multi-Delyn Liquid) 15 ml PO 0800 [facility] Last Admin: 09/24/17 09:15 Dose: 15 ml Pantoprazole Sodium (Protonix Inj) 40 mg IVP Q12 [facility] Last Admin: 09/24/17 09:15 Dose: 40 mg Thiamine HCl (Vitamin B1 Tab) 100 mg PO DAILY [facility] Vitamin A (Vitamin A & D Oint Ud Foilpak) 1 ea TOP Q8 PRN PRN Reason: Dry skin Last Admin: 09/17/17 18:41 Dose: 1 ea - Labs Labs: 09/24/17 05:50 09/24/17 05:50 PT 13.0 SECONDS (9.4-12.5) H 09/24/17 05:50 INR 1.13 (0.93-1.08) H 09/24/17 05:50 APTT 32.4 Seconds (25.1-36.5) 09/17/17 05:45 Assessment and Plan - Assessment and Plan (Free Text) Assessment: Patient seen and examined, on rounds with resident, agree with note with following additions/exceptions; Patient is 47yo male PMHx of DM2, HTN and alcohol abuse admitted with septic shock , pancreatitis, aspiration pneumonia, IRWIN, transaminitis, seizures, metabolic acidosis, thrombocytopenia likely secondary to alcohol abuse, s/p cardiac arrest s/p ROSC and respiratory failure/ARDS which has resolved. s/p PEG , Trach Currently afebrile, HD stable, comfortable, in NAD. On exam, awake, alert, in NAD, has been on Tcollar >24hr, tolerating it well. ARDS, resolved IRWIN, improved, off HD PNA, resolved Pancreatitis, resolved Seizure Disorder EtOH abuse s/p Cardiac Arrest s/p ROSC Recommend: - cont with T collar as tolerated - antibiotics as per ID, C diff antigen Neg, would DC Vanco PO - BP control - Seizure Ppx, Keppra - follow up neurology - follow up nephro - FS control, Levemir, Insulin sliding scale - Feeds - monitor UOP - GI ppx - DVT ppx - stable, transfer to telemetry - Pending transfer to [facility]
--- NOTE | 2017-09-24 09:05 | RAD ---
HISTORY: repeat study COMPARISON: 09/21/2017. FINDINGS: There is stable position of the tracheostomy tube. The left PICC line terminates in the SVC. LUNGS: Again seen is pulmonary venous congestion. There are low lung volumes. PLEURA: No significant pleural effusion identified, no pneumothorax apparent. CARDIOVASCULAR: There is stable cardiomegaly. OSSEOUS STRUCTURES: No significant abnormalities. VISUALIZED UPPER ABDOMEN: Normal. OTHER FINDINGS: None. IMPRESSION: Stable cardiomegaly and pulmonary venous congestion. The left PICC line terminates in the SVC.
[2017-09-24] MEDS: Thiamine 100 mg/ml Inj IV SCH (09:15)
[2017-09-24] MEDS: Multi Vitamins 15 mL UD Oral Solution PO SCH (09:15)
--- NOTE | 2017-09-24 09:41 | PN ---
DATE: 09/22/2017 SUBJECTIVE: Kang Aguero is seen this morning. Apparently, the tracheostomy tube is no longer sealing. The inner cannula has an appendage that had broken off. It is too early to change this tube safely. He is tolerating this well. We pushed it back in and would seal with the tape for now. It needs to be changed hopefully in about a week. We can do a safe using a dilator. For now, we will leave this as it is. Jasen Pablo MD
[2017-09-24] MEDS: levETIRAcetam 1,000 MG in Sodium Chloride 0.9% 100 ML IV SCH ×2 (09:51→22:47)
[2017-09-24] MEDS ORDERED: Magnesium Sulfate 2 GM in Sodium Chloride 0.9% 100 ML IVPB ONE (11:07)
--- NOTE | 2017-09-24 13:19 | CP.PCM.PN ---
Subjective - Date & Time of Evaluation Date of Evaluation: 09/24/17 Time of Evaluation: 13:16 - Subjective Subjective: Mr. Aguero was seen and examined at the bedside in ICU. He is alert, oriented. He has trach connected to a humidified oxygen. He is able to answer questions using non-verbal cues such as nodding or shaking his head. He is able to follow simple commands. He is currently being fed via peg, tolerating well. He is requesting for a po intake. There was no untoward events overnight. Objective - Vital Signs/Intake and Output Vital Signs (last 24 hours): Temp Pulse Resp BP Pulse Ox 100.1 F H 111 H 20 158/108 H 100 09/24/17 04:00 09/24/17 10:44 09/24/17 07:45 09/24/17 10:44 09/24/17 07:45 Intake and Output: 09/24/17 09/24/17 06:59 18:59 Intake Total 120 Output Total 1350 Balance -1230 - Medications Medications: Current Medications Acetaminophen (Tylenol 325mg Tab) 650 mg PO Q4 PRN PRN Reason: Fever >100.4 F Amlodipine Besylate (Norvasc) 5 mg PO DAILY [facility] Last Admin: 09/24/17 10:44 Dose: 5 mg Artificial Tears (Refresh Opth Soln) 0.3 ml OU Q12 PRN PRN Reason: Dry eyes Last Admin: 09/17/17 21:43 Dose: 0.3 ml Clonidine HCl (Catapres Tts1 0.1 Mg/24 Hr) 1 patch TD Q7D@1000 [facility] Last Admin: 09/22/17 09:56 Dose: 1 patch Folic Acid (Folic Acid) 1 mg NG DAILY [facility] Last Admin: 09/24/17 09:15 Dose: 1 mg Heparin Sodium (Porcine) (Heparin) 5,000 units SC Q12 [facility]IA PRN Reason: Protocol Last Admin: 09/24/17 09:15 Dose: 5,000 units Hydralazine HCl (Apresoline) 10 mg IVP Q6 PRN PRN Reason: BP> 180 Last Admin: 09/24/17 09:16 Dose: 10 mg Levetiracetam 1,000 mg/ Sodium (Chloride) 110 mls @ 460 mls/hr IV Q12 [facility] Last Admin: 09/24/17 09:51 Dose: 460 mls/hr Insulin Detemir (Levemir) 15 unit SC HS [facility] Last Admin: 09/22/17 22:12 Dose: 15 unit Insulin Human Lispro (Humalog High) 0 units SC Q6H [facility]IA PRN Reason: Protocol Last Admin: 09/24/17 07:00 Dose: Not Given Levalbuterol HCl (Xopenex) 0.63 mg IH [id number] [facility] Last Admin: 09/24/17 07:40 Dose: 0.63 mg Lorazepam (Ativan) 2 mg IVP Q3H PRN; Protocol PRN Reason: Agitation Last Admin: 09/23/17 00:10 Dose: 2 mg Multivitamins/Vitamin C (Multi-Delyn Liquid) 15 ml PO 0800 [facility] Last Admin: 09/24/17 09:15 Dose: 15 ml Pantoprazole Sodium (Protonix Inj) 40 mg IVP Q12 [facility] Last Admin: 09/24/17 09:15 Dose: 40 mg Thiamine HCl (Vitamin B1 Tab) 100 mg PO DAILY [facility] Vitamin A (Vitamin A & D Oint Ud Foilpak) 1 ea TOP Q8 PRN PRN Reason: Dry skin Last Admin: 09/17/17 18:41 Dose: 1 ea - Labs Labs: 09/24/17 05:50 09/24/17 05:50 PT 13.0 SECONDS (9.4-12.5) H 09/24/17 05:50 INR 1.13 (0.93-1.08) H 09/24/17 05:50 APTT 32.4 Seconds (25.1-36.5) 09/17/17 05:45 - Constitutional Appears: No Acute Distress - Head Exam Head Exam: NORMAL INSPECTION - Neurological Exam Neurological Exam: Alert, Awake Neuro motor strength exam: Left Upper Extremity: 5, Right Upper Extremity: 5, Left Lower Extremity: 4, Right Lower Extremity: 4 Additional comments: Neurological unchanged from previous examination. Assessment and Plan (1) Seizure Assessment & Plan: Case discussed with Dr. Reynolds, continue all current medical, physical, occupational, and speech regimens. Pending EEG result. Status: Acute
--- NOTE | 2017-09-24 13:27 | CP.PCM.PN ---
<Joao Garcia - Last Filed: 09/24/17 13:20> Subjective - Date & Time of Evaluation Date of Evaluation: 09/24/17 Time of Evaluation: 07:20 - Subjective Subjective: Medicine progress note for Dr. Jeanne Daniels Hospitalist Service: Patient seen and examined. No acute events overnight per nursing staff except for 2 episodes of watery stools. Patient is on tracheostomy collar and unable to speak so ROS was unable to be obtained. Patient wrote down asking about water because his mouth and throat are dry. Objective - Vital Signs/Intake and Output Vital Signs (last 24 hours): Temp Pulse Resp BP Pulse Ox 100.1 F H 111 H 20 158/108 H 100 09/24/17 04:00 09/24/17 10:44 09/24/17 07:45 09/24/17 10:44 09/24/17 07:45 Intake and Output: 09/24/17 09/24/17 06:59 18:59 Intake Total 120 Output Total 1350 Balance -1230 - Medications Medications: Current Medications Acetaminophen (Tylenol 325mg Tab) 650 mg PO Q4 PRN PRN Reason: Fever >100.4 F Amlodipine Besylate (Norvasc) 5 mg PO DAILY [facility] Last Admin: 09/24/17 10:44 Dose: 5 mg Artificial Tears (Refresh Opth Soln) 0.3 ml OU Q12 PRN PRN Reason: Dry eyes Last Admin: 09/17/17 21:43 Dose: 0.3 ml Clonidine HCl (Catapres Tts1 0.1 Mg/24 Hr) 1 patch TD Q7D@1000 [facility] Last Admin: 09/22/17 09:56 Dose: 1 patch Folic Acid (Folic Acid) 1 mg NG DAILY [facility] Last Admin: 09/24/17 09:15 Dose: 1 mg Heparin Sodium (Porcine) (Heparin) 5,000 units SC Q12 [facility] PRN Reason: Protocol Last Admin: 09/24/17 09:15 Dose: 5,000 units Hydralazine HCl (Apresoline) 10 mg IVP Q6 PRN PRN Reason: BP> 180 Last Admin: 09/24/17 09:16 Dose: 10 mg Levetiracetam 1,000 mg/ Sodium (Chloride) 110 mls @ 460 mls/hr IV Q12 [facility] Last Admin: 09/24/17 09:51 Dose: 460 mls/hr Insulin Detemir (Levemir) 15 unit SC HS [facility] Last Admin: 09/22/17 22:12 Dose: 15 unit Insulin Human Lispro (Humalog High) 0 units SC Q6H [facility] PRN Reason: Protocol Last Admin: 09/24/17 07:00 Dose: Not Given Levalbuterol HCl (Xopenex) 0.63 mg IH [id number] [facility] Last Admin: 09/24/17 07:40 Dose: 0.63 mg Lorazepam (Ativan) 2 mg IVP Q3H PRN; Protocol PRN Reason: Agitation Last Admin: 09/23/17 00:10 Dose: 2 mg Multivitamins/Vitamin C (Multi-Delyn Liquid) 15 ml PO 0800 [facility] Last Admin: 09/24/17 09:15 Dose: 15 ml Pantoprazole Sodium (Protonix Inj) 40 mg IVP Q12 [facility] Last Admin: 09/24/17 09:15 Dose: 40 mg Thiamine HCl (Vitamin B1 Tab) 100 mg PO DAILY [facility] Vitamin A (Vitamin A & D Oint Ud Foilpak) 1 ea TOP Q8 PRN PRN Reason: Dry skin Last Admin: 09/17/17 18:41 Dose: 1 ea - Labs Labs: 09/24/17 05:50 09/24/17 05:50 PT 13.0 SECONDS (9.4-12.5) H 09/24/17 05:50 INR 1.13 (0.93-1.08) H 09/24/17 05:50 APTT 32.4 Seconds (25.1-36.5) 09/17/17 05:45 - Constitutional Appears: No Acute Distress - Head Exam Head Exam: ATRAUMATIC, NORMOCEPHALIC - Eye Exam Eye Exam: EOMI, Normal appearance - ENT Exam ENT Exam: Mucous Membranes Dry Additional comments: Tracheostomy in place - Respiratory Exam Respiratory Exam: Clear to Ausculation Bilateral, NORMAL BREATHING PATTERN. absent: Rales, Rhonchi, Wheezes - Cardiovascular Exam Cardiovascular Exam: REGULAR RHYTHM, +S1, +S2 - GI/Abdominal Exam GI & Abdominal Exam: Soft, Normal Bowel Sounds. absent: Distended, Tenderness Additional comments: PEG tube in place - Exam Additional comments: lazo in place - Extremities Exam Extremities Exam: Normal Inspection Additional comments: Partial amputation of right second digit - Neurological Exam Neurological Exam: Alert, Awake - Skin Skin Exam: Dry, Warm Assessment and Plan - Assessment and Plan (Free Text) Plan: 47 M with a PMH of DM2, HTN and alcohol use who presented with URI symptoms such as cough, shortness of breath, palpitations. Last alcoholic drink was night prior to admission. Patient was admitted for septic shock (with lactate of 7.7 on presentation), high anion gap metabolic acidosis, acute pancreatitis 2 /2 ETOH vs triglycerides, IRWIN vs CKD, elevated LFTs likely 2/2 ETOH, elevated BNP, hyponatremia, and hypokalemia. s/p cardiac arrest and ROSC. Upon ROSC, patient vomited and likely aspirated, but was turned to the side and suctioned. Intubated and on vent with sedation in ICU. Patient initially required pressors to maintain BP but is no longer needing them. Remains on Keppra for seizure ppx. IRWIN has improved and urine production has increased, patient s/p 6 sessions of temporary dialysis and currently. Patient is POD3 trach/peg. Patient has no access for dialysis and currently doesn't require dialysis per Nephro as renal function is improving and urine output is adequate. Patient is pending placement to LTAC 1. Septic shock likely 2/2 pancreatitis, resolved - leukocytosis is resolving. Blood and urine culture negative. Tracheostomy culture is positive for Escherichia coli. - cont tube feeds through gastrostomy per surgery/ICU team - cont contact precautions for c.diff infection - tylenol PRN - ID consulted, finished all courses of antibiotics - GI consulted, recs appreciated. Trach collar as tolerated - Surgery consulted, recs appreciated - Palliative care consulted for advanced directives, [facility] 2. AMS 2/2 Anion gap metabolic acidosis likely 2/2 lactic acidosis and ETOH, improving today - s/p cardiac arrest 09/08 - s/p endotacheal intubation due to hypoxemia and vomiting to reduce risk of aspiration - s/p tracheostomy - CT Head showed no acute intracranial abnormalities and mild chronic microangiopathic changes, w/ moderate global parencyhmal volume loss - ativan prn agitation - Maintain SaO2 > 90% - EEG was normal - cont Keppra for seizure ppx - Neurology consulted, recs appreciated - Cardiology consulted, recs appreciated 3. IRWIN vs CKD a/w Hypomagnesemia - s/p 6 dialysis sessions - avoid nephrotoxins - Electrolyte imbalances will be repleted as needed - Nephrology consulted, currently off hemodialysis. urine output is increasing.creatinine stabilized. 4. Hypertension - clonidine patch q7d - norvasc started per nephrology - hydralazine prn - monitor VS 5. History of Diabetes - Levemir 15u HS - ISS 6. 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 Transaminitis likely w/ underlying liver disease, improving - likely 2/2 shock liver and chronic ETOH use since INR is elevated - cont thiamine, MV and folic acid - hepatitis panel negative - continue to monitor 8. Poor prognosis - discuss with family/ poor prognosis and long-term plane - Palliative care consulted - patient for LTAC pending authorization Disposition: Contact precautions discontinued as patient has completed antibiotics. Pending swallow evaluation. Patient transferred out of ICU. Awaiting LTAC authorization. Patient was seen, examined and discussed with attending, Dr. Jeanne Daniels <Jeanne Daniels - Last Filed: 09/24/17 18:10> Objective - Vital Signs/Intake and Output Vital Signs (last 24 hours): Temp Pulse Resp BP Pulse Ox 100.1 F H 111 H 20 158/108 H 100 09/24/17 04:00 09/24/17 10:44 09/24/17 07:45 09/24/17 10:44 09/24/17 07:45 Intake and Output: 09/24/17 09/24/17 06:59 18:59 Intake Total 120 Output Total 1350 Balance -1230 - Medications Medications: Current Medications Acetaminophen (Tylenol 325mg Tab) 650 mg PO Q4 PRN PRN Reason: Fever >100.4 F Amlodipine Besylate (Norvasc) 5 mg PO DAILY [facility] Last Admin: 09/24/17 10:44 Dose: 5 mg Artificial Tears (Refresh Opth Soln) 0.3 ml OU Q12 PRN PRN Reason: Dry eyes Last Admin: 09/17/17 21:43 Dose: 0.3 ml Clonidine HCl (Catapres Tts1 0.1 Mg/24 Hr) 1 patch TD Q7D@1000 [facility] Last Admin: 09/22/17 09:56 Dose: 1 patch Folic Acid (Folic Acid) 1 mg NG DAILY [facility] Last Admin: 09/24/17 09:15 Dose: 1 mg Heparin Sodium (Porcine) (Heparin) 5,000 units SC Q12 [facility] PRN Reason: Protocol Last Admin: 09/24/17 09:15 Dose: 5,000 units Hydralazine HCl (Apresoline) 10 mg IVP Q6 PRN PRN Reason: BP> 180 Last Admin: 09/24/17 09:16 Dose: 10 mg Levetiracetam 1,000 mg/ Sodium (Chloride) 110 mls @ 460 mls/hr IV Q12 [facility] Last Admin: 09/24/17 09:51 Dose: 460 mls/hr Insulin Detemir (Levemir) 15 unit SC HS [facility] Last Admin: 09/22/17 22:12 Dose: 15 unit Insulin Human Lispro (Humalog High) 0 units SC Q6H [facility] PRN Reason: Protocol Last Admin: 09/24/17 07:00 Dose: Not Given Levalbuterol HCl (Xopenex) 0.63 mg IH [id number] [facility] Last Admin: 09/24/17 13:20 Dose: 0.63 mg Lorazepam (Ativan) 2 mg IVP Q3H PRN; Protocol PRN Reason: Agitation Last Admin: 09/23/17 00:10 Dose: 2 mg Multivitamins/Vitamin C (Multi-Delyn Liquid) 15 ml PO 0800 [facility] Last Admin: 09/24/17 09:15 Dose: 15 ml Pantoprazole Sodium (Protonix Inj) 40 mg IVP Q12 [facility] Last Admin: 09/24/17 09:15 Dose: 40 mg Thiamine HCl (Vitamin B1 Tab) 100 mg PO DAILY [facility] Vitamin A (Vitamin A & D Oint Ud Foilpak) 1 ea TOP Q8 PRN PRN Reason: Dry skin Last Admin: 09/17/17 18:41 Dose: 1 ea - Labs Labs: 09/24/17 05:50 09/24/17 05:50 PT 13.0 SECONDS (9.4-12.5) H 09/24/17 05:50 INR 1.13 (0.93-1.08) H 09/24/17 05:50 APTT 32.4 Seconds (25.1-36.5) 09/17/17 05:45 Attending/Attestation - Attestation I have personally seen and examined this patient.: Yes I have fully participated in the care of the patient.: Yes I have reviewed all pertinent clinical information, including history, physical exam and plan: Yes Notes (Text): I have seen and examined the patient at bedside with the resident. Agree with the above note with the following additions/ exceptions: Briefly this is 47 year male with history of alcohol abuse, DM-2 who came initially for abdominal pain and dyspnea. He was found to be severely acidotic and had elevated lactic acid level. He was diagnosed with pancreatitis. He is s/p Trach and gastrostomy tube placement. Patient is more alert and is able to follow commands. Leukocytosis resolved. He had completed antibiotics for cdiff. Acute kidney injury has resolved. Urine output is increasing. Creatinine stabilized. There is no need for dialysis. Continue seizure precautions, keppra, thiamine, folate and MVI. LFT's improved. Patient complained of dry mouth. Swallow eval was obtained and they recommended puree consistency diet with thin liquids Case discussed with secondary social studies teacher in detail. Pending authorization for LTAC placement. Dr Jeanne Daniels
--- NOTE | 2017-09-24 15:28 | CP.PCM.PN ---
Subjective - Date & Time of Evaluation Date of Evaluation: 09/24/17 Time of Evaluation: 15:25 - Subjective Subjective: Follow up Nephrology Consultation: Assessment:stable Acute Kidney Injury (N17.9) likely due to pre-renal state, SIRS, Acute tubular necrosis: improved, now off HD Hyponatermia, hypokalemia DM, HTN, chronic alcoholism, hepatic dysfunction acute pancreatitis HAGMA with lactic acidosis + alcohol ketoacidosis and starvation ketoacidosis Thrombocytopenia Hypomagnesemia, hypophosphatemia s/p cardiac arrest, seizure ARDS s/p trach/PEG Plan no further need of renal replacement therapy Patient not on ACEI/ARB due to IRWIN. maintain hemodynamics stable. started 5 mg/ day of norvasc Monitor Input/Output, daily weights and renal function with basic metabolic panel CT abdomen showed acute pancreatitis and fatty liver continue with folic acid MVI, thiamine supplements supplement electrolytes as needed anemia management as per primary team. Dose meds/antibiotics for improved GFR. Avoid nephrotoxins/NSAIDs Glycemic control awaiting LTAC Thanks for allowing me to participate in care of your patient. Will follow patient with you. Please call if any Qs/. d/w team Dr Finn Ng Office: [phone] Chief Complaint; unable HPI: Pt is a 47 M with hx of diabetes Mellitus hypertension and chronic daily Etoh abuse presented with SOB, pain abdomen and not feeling well renal consult for IRWIN and acidosis ROS: unable Physical Examination: General Appearance: stable comfortable Vitals reviewed and noted as below Head; Atraumatic, normocephalic ENT: s/p trach Neck; supple no lymphadenopathy, no thyromegaly or bruit Lungs: Increased respiratory rate/effort. Breath sounds bilateral with basal rales Heart: normal rate. s1s2 normal. No rub or gallop. Extremities: no edema. No varicose veins Neurological: Patient is awake Skin: Warm and dry. Normal turgor. No rash. Palpitation: Normal elasticity for age Abdomen: Abdomen is soft. Bowel sounds decreased. There is no abdominal tenderness, no guarding/rigidity no organomegaly. distended. has PEG tube Psych: unable MSK: no joint tenderness or swelling. has clubbing : kidney or bladder not palpable Labs/imaging reviewed. Past medical history, past surgical history, family history, social history, allergy reviewed and noted as below Family hx: no hx of CKD. Rest non-contributory UA no crystals but has ketone and protein Objective - Vital Signs/Intake and Output Vital Signs (last 24 hours): Temp Pulse Resp BP Pulse Ox 100.1 F H 111 H 20 158/108 H 100 09/24/17 04:00 09/24/17 10:44 09/24/17 07:45 09/24/17 10:44 09/24/17 07:45 Intake and Output: 09/24/17 09/24/17 06:59 18:59 Intake Total 120 Output Total 1350 Balance -1230 - Medications Medications: Current Medications Acetaminophen (Tylenol 325mg Tab) 650 mg PO Q4 PRN PRN Reason: Fever >100.4 F Amlodipine Besylate (Norvasc) 5 mg PO DAILY [facility] Last Admin: 09/24/17 10:44 Dose: 5 mg Artificial Tears (Refresh Opth Soln) 0.3 ml OU Q12 PRN PRN Reason: Dry eyes Last Admin: 09/17/17 21:43 Dose: 0.3 ml Clonidine HCl (Catapres Tts1 0.1 Mg/24 Hr) 1 patch TD Q7D@1000 [facility] Last Admin: 09/22/17 09:56 Dose: 1 patch Folic Acid (Folic Acid) 1 mg NG DAILY [facility] Last Admin: 09/24/17 09:15 Dose: 1 mg Heparin Sodium (Porcine) (Heparin) 5,000 units SC Q12 [facility] PRN Reason: Protocol Last Admin: 09/24/17 09:15 Dose: 5,000 units Hydralazine HCl (Apresoline) 10 mg IVP Q6 PRN PRN Reason: BP> 180 Last Admin: 09/24/17 09:16 Dose: 10 mg Levetiracetam 1,000 mg/ Sodium (Chloride) 110 mls @ 460 mls/hr IV Q12 [facility] Last Admin: 09/24/17 09:51 Dose: 460 mls/hr Insulin Detemir (Levemir) 15 unit SC HS [facility] Last Admin: 09/22/17 22:12 Dose: 15 unit Insulin Human Lispro (Humalog High) 0 units SC Q6H [facility] PRN Reason: Protocol Last Admin: 09/24/17 07:00 Dose: Not Given Levalbuterol HCl (Xopenex) 0.63 mg IH [id number] [facility] Last Admin: 09/24/17 13:20 Dose: 0.63 mg Lorazepam (Ativan) 2 mg IVP Q3H PRN; Protocol PRN Reason: Agitation Last Admin: 09/23/17 00:10 Dose: 2 mg Multivitamins/Vitamin C (Multi-Delyn Liquid) 15 ml PO 0800 [facility] Last Admin: 09/24/17 09:15 Dose: 15 ml Pantoprazole Sodium (Protonix Inj) 40 mg IVP Q12 [facility] Last Admin: 09/24/17 09:15 Dose: 40 mg Thiamine HCl (Vitamin B1 Tab) 100 mg PO DAILY [facility] Vitamin A (Vitamin A & D Oint Ud Foilpak) 1 ea TOP Q8 PRN PRN Reason: Dry skin Last Admin: 09/17/17 18:41 Dose: 1 ea - Labs Labs: 09/24/17 05:50 09/24/17 05:50 PT 13.0 SECONDS (9.4-12.5) H 09/24/17 05:50 INR 1.13 (0.93-1.08) H 09/24/17 05:50 APTT 32.4 Seconds (25.1-36.5) 09/17/17 05:45
--- NOTE | 2017-09-24 15:33 | CP.PCM.PN ---
Subjective - Date & Time of Evaluation Date of Evaluation: 09/24/17 Time of Evaluation: 15:31 - Subjective Subjective: Surgery: Dr. Pablo Patient remains in ICU. Trach facets damaged however patient on trach collar and tolerating. Patient asking for liquids to drink. Objective - Vital Signs/Intake and Output Vital Signs (last 24 hours): Temp Pulse Resp BP Pulse Ox 100.1 F H 111 H 20 158/108 H 100 09/24/17 04:00 09/24/17 10:44 09/24/17 07:45 09/24/17 10:44 09/24/17 07:45 Intake and Output: 09/24/17 09/24/17 06:59 18:59 Intake Total 120 Output Total 1350 Balance -1230 - Medications Medications: Current Medications Acetaminophen (Tylenol 325mg Tab) 650 mg PO Q4 PRN PRN Reason: Fever >100.4 F Amlodipine Besylate (Norvasc) 5 mg PO DAILY [facility] Last Admin: 09/24/17 10:44 Dose: 5 mg Artificial Tears (Refresh Opth Soln) 0.3 ml OU Q12 PRN PRN Reason: Dry eyes Last Admin: 09/17/17 21:43 Dose: 0.3 ml Clonidine HCl (Catapres Tts1 0.1 Mg/24 Hr) 1 patch TD Q7D@1000 [facility] Last Admin: 09/22/17 09:56 Dose: 1 patch Folic Acid (Folic Acid) 1 mg NG DAILY [facility] Last Admin: 09/24/17 09:15 Dose: 1 mg Heparin Sodium (Porcine) (Heparin) 5,000 units SC Q12 [facility] PRN Reason: Protocol Last Admin: 09/24/17 09:15 Dose: 5,000 units Hydralazine HCl (Apresoline) 10 mg IVP Q6 PRN PRN Reason: BP> 180 Last Admin: 09/24/17 09:16 Dose: 10 mg Levetiracetam 1,000 mg/ Sodium (Chloride) 110 mls @ 460 mls/hr IV Q12 [facility] Last Admin: 09/24/17 09:51 Dose: 460 mls/hr Insulin Detemir (Levemir) 15 unit SC HS [facility] Last Admin: 09/22/17 22:12 Dose: 15 unit Insulin Human Lispro (Humalog High) 0 units SC Q6H [facility] PRN Reason: Protocol Last Admin: 09/24/17 07:00 Dose: Not Given Levalbuterol HCl (Xopenex) 0.63 mg IH [id number] [facility] Last Admin: 09/24/17 13:20 Dose: 0.63 mg Lorazepam (Ativan) 2 mg IVP Q3H PRN; Protocol PRN Reason: Agitation Last Admin: 09/23/17 00:10 Dose: 2 mg Multivitamins/Vitamin C (Multi-Delyn Liquid) 15 ml PO 0800 [facility] Last Admin: 09/24/17 09:15 Dose: 15 ml Pantoprazole Sodium (Protonix Inj) 40 mg IVP Q12 [facility] Last Admin: 09/24/17 09:15 Dose: 40 mg Thiamine HCl (Vitamin B1 Tab) 100 mg PO DAILY [facility] Vitamin A (Vitamin A & D Oint Ud Foilpak) 1 ea TOP Q8 PRN PRN Reason: Dry skin Last Admin: 09/17/17 18:41 Dose: 1 ea - Labs Labs: 09/24/17 05:50 09/24/17 05:50 PT 13.0 SECONDS (9.4-12.5) H 09/24/17 05:50 INR 1.13 (0.93-1.08) H 09/24/17 05:50 APTT 32.4 Seconds (25.1-36.5) 09/17/17 05:45 - Constitutional Appears: Non-toxic, No Acute Distress - Head Exam Head Exam: ATRAUMATIC, NORMAL INSPECTION - Eye Exam Eye Exam: EOMI - ENT Exam ENT Exam: Mucous Membranes Dry Additional comments: trach facets malfunctioned - Respiratory Exam Respiratory Exam: absent: Respiratory Distress - Cardiovascular Exam Cardiovascular Exam: REGULAR RHYTHM. absent: Tachycardia - GI/Abdominal Exam GI & Abdominal Exam: Soft. absent: Distended, Tenderness Assessment and Plan - Assessment and Plan (Free Text) Assessment: 47 y/o male w/ respiratory failure s/p TRach and PEG placement POD5 Plan: -trach facets malfunctioned; however considering patients current clinical status may be able to remove trach -no need to replace at this time -cont trach collar as tolerated for now -d/w Dr. Samy Oakes PGY3
--- NOTE | 2017-09-24 16:08 | CP.PCM.PN ---
Subjective - Date & Time of Evaluation Date of Evaluation: 09/24/17 Time of Evaluation: 08:30 - Subjective Subjective: Comfortable in bed, low grade temperatures but not outright fevers, bowel movements are loose but not watery, not in distress. Objective - Vital Signs/Intake and Output Vital Signs (last 24 hours): Temp Pulse Resp BP Pulse Ox 100.1 F H 75 26 H 134/82 92 L 09/24/17 04:00 09/24/17 05:15 09/24/17 05:15 09/24/17 05:16 09/24/17 05:15 Intake and Output: 09/23/17 09/24/17 18:59 06:59 Intake Total 1370 Output Total 1250 Balance 120 - Medications Medications: Current Medications Artificial Tears (Refresh Opth Soln) 0.3 ml OU Q12 PRN PRN Reason: Dry eyes Last Admin: 09/17/17 21:43 Dose: 0.3 ml Budesonide (Pulmicort Respules) 0.5 mg IH [id number] [facility] Last Admin: 09/23/17 19:33 Dose: 0.5 mg Clonidine HCl (Catapres Tts1 0.1 Mg/24 Hr) 1 patch TD Q7D@1000 [facility] Last Admin: 09/22/17 09:56 Dose: 1 patch Folic Acid (Folic Acid) 1 mg NG DAILY [facility] Last Admin: 09/23/17 09:36 Dose: 1 mg Heparin Sodium (Porcine) (Heparin) 5,000 units SC Q12 [facility] PRN Reason: Protocol Last Admin: 09/23/17 22:05 Dose: 5,000 units Hydralazine HCl (Apresoline) 10 mg IVP Q6 PRN PRN Reason: BP> 180 Last Admin: 09/23/17 14:44 Dose: 10 mg Levetiracetam 1,000 mg/ Sodium (Chloride) 110 mls @ 460 mls/hr IV Q12 [facility] Last Admin: 09/23/17 22:06 Dose: 460 mls/hr Insulin Detemir (Levemir) 15 unit SC HS [facility] Last Admin: 09/22/17 22:12 Dose: 15 unit Insulin Human Lispro (Humalog High) 0 units SC Q6H [facility] PRN Reason: Protocol Last Admin: 09/24/17 01:30 Dose: Not Given Levalbuterol HCl (Xopenex) 0.63 mg IH [id number] [facility] Last Admin: 09/24/17 02:18 Dose: 0.63 mg Lorazepam (Ativan) 2 mg IVP Q3H PRN; Protocol PRN Reason: Agitation Last Admin: 09/23/17 00:10 Dose: 2 mg Multivitamins/Vitamin C (Multi-Delyn Liquid) 15 ml PO 0800 [facility] Last Admin: 09/23/17 09:35 Dose: 15 ml Pantoprazole Sodium (Protonix Inj) 40 mg IVP Q12 [facility] Last Admin: 09/23/17 22:07 Dose: 40 mg Thiamine HCl (Vitamin B1 Inj) 100 mg IV DAILY [facility] Last Admin: 09/23/17 10:10 Dose: 100 mg Vitamin A (Vitamin A & D Oint Ud Foilpak) 1 ea TOP Q8 PRN PRN Reason: Dry skin Last Admin: 09/17/17 18:41 Dose: 1 ea - Labs Labs: 09/23/17 07:45 09/23/17 07:45 PT 13.5 SECONDS (9.4-12.5) H 09/23/17 07:45 INR 1.17 (0.93-1.08) H 09/23/17 07:45 APTT 32.4 Seconds (25.1-36.5) 09/17/17 05:45 - Constitutional Appears: Chronically Ill - Head Exam Head Exam: NORMAL INSPECTION - ENT Exam Additional comments: tracheostomy tube in place - Respiratory Exam Respiratory Exam: Decreased Breath Sounds - Cardiovascular Exam Cardiovascular Exam: +S1, +S2 - GI/Abdominal Exam GI & Abdominal Exam: Soft. absent: Tenderness Assessment and Plan - Assessment and Plan (Free Text) Plan: Assessment VDRF (now with tracheostomy) S/P severe sepsis with renal failure due to C. diff. associated diarrhea on top of acute alcoholic pancreatitis, with possible HCAP with E. coli in the sputum S/P gastrostomy tube placement Thrombocytopenia with alcoholic liver disease DM HTN Plan continue to monitor off antibiotics since he is at risk for nosocomial infections repeat stool for C. diff. is negative
--- NOTE | 2017-09-24 21:16 | PN ---
DATE: 09/24/2017 SUBJECTIVE: This patient was seen and evaluated today. Patient is more alert, follows simple commands, unable to vocalize words. PHYSICAL EXAMINATION: VITAL SIGNS: He is afebrile, blood pressure is 163/103, pulse 88, respirations 20, O2 saturation 100%. HEENT: Atraumatic, anicteric. NECK: Supple. Patient has a tracheostomy present. HEART: S1 and S2 heard. LUNGS: Bilateral air entry present. ABDOMEN: Soft. G tube in place. EXTREMITIES: No cyanosis. No clubbing. NEUROLOGIC: More awake, alert. Follow simple commands. LABORATORY DATA: Hemoglobin 7.2, hematocrit 23.1, WBC is 8.7, and platelets 201. Chemistry: total bilirubin 1.5, potassium 3.5. IMPRESSION: This is a 47-year-old patient with a history of diabetes mellitus, hypertension, and alcohol use, admitted, following up with acute pancreatitis and sepsis, status post cardiac arrest. Patient had gastroduodenoscopy and tracheostomy done. Patient had a surgically placed gastrostomy tube and he was found to have grade D esophageal ulcerations extending up to 5 cm in the lower one-third of the esophagus. Patient is becoming more alert, following simple commands. Patient is awaiting for a swallowing evaluation. We would recommend to continue the liquid diet. If the patient is able to tolerate, slowly advance to pureed diet and would recommend repeat endoscopy before advancing the diet further. Patient is still anemic with a low hemoglobin. We would recommend iron infusions and follow up of the hemoglobin and hematocrit. We will continue the high dose proton pump inhibitors. Thank you very much for allowing us to participate in the care of the patient. Yogi Fernandez MD [facility]
[2017-09-25] MEDS: Levalbuterol 0.63 MG/3 ML Inhal Soln UD IH SCH ×3 (01:20→13:24)
[2017-09-25] MEDS: Insulin Lispro (HUMAlog) HIGH Coverage SC SCH ×4 (01:51→13:45)
[2017-09-25 07:40] LABS: HEMOGLOBIN 7.8 g/dL (14.0-18.0); MEAN CELL VOLUME 97.2 fl (80.0-105.0); MEAN CORPUSCULAR HEMOGLOBIN 30.7 pg (25.0-35.0); MEAN CORPUSCULAR HGB CONC 31.6 g/dl (31.0-37.0); MEAN PLATELET VOLUME 10.2 fl (7.0-11.0); RBC 2.54 10^6/uL (3.5-6.1); RED CELL DISTRIBUTION WIDTH 16.1 % (11.5-14.5); WHITE BLOOD COUNT 9.5 10^3/ul (4.5-11.0)
[2017-09-25 08:26] LABS: ALB/GLOB RATIO 0.7 (1.1-1.8); ALBUMIN 2.9 g/dL (3.0-4.8); ALT/SGPT 19 U/L (7-56); AST/SGOT 28 U/L (17-59); BLOOD UREA NITROGEN 8 mg/dL (7-21); GFR AFRICAN-AMERICAN > 60; GFR NON-AFRICAN AMERICAN > 60; MAGNESIUM 1.3 mg/dL (1.7-2.2)
[2017-09-25] MEDS ORDERED: Magnesium Sulfate 2 GM in Sodium Chloride 0.9% 100 ML IVPB ONE (08:26)
[2017-09-25] MEDS: Multi Vitamins 15 mL UD Oral Solution PO SCH (08:30)
[2017-09-25 09:41] VITALS: BP 166/93
[2017-09-25] MEDS: levETIRAcetam 1,000 MG in Sodium Chloride 0.9% 100 ML IV SCH (09:56)
--- NOTE | 2017-09-25 10:16 | CP.PCM.PCO ---
Physician Communication Note - Physician Communication Note Physician Communication Note: Pt unable to participate in psych eval, pls call back when he can, Thanks
--- NOTE | 2017-09-25 11:46 | CP.PCM.PN ---
Subjective - Date & Time of Evaluation Date of Evaluation: 09/25/17 Time of Evaluation: 11:43 - Subjective Subjective: Surgery: Dr. Pablo Patient transferred out of ICU. Patient on trach collar. Awaiting placement at [facility]. Patient requesting liquids/food to eat. Objective - Vital Signs/Intake and Output Vital Signs (last 24 hours): Temp Pulse Resp BP Pulse Ox 98.1 F 109 H 29 H 166/93 H 99 09/25/17 00:00 09/25/17 09:27 09/25/17 01:00 09/25/17 09:27 09/25/17 01:00 - Medications Medications: Current Medications Acetaminophen (Tylenol 325mg Tab) 650 mg PO Q4 PRN PRN Reason: Fever >100.4 F Amlodipine Besylate (Norvasc) 5 mg PO DAILY [facility] Last Admin: 09/25/17 09:27 Dose: 5 mg Artificial Tears (Refresh Opth Soln) 0.3 ml OU Q12 PRN PRN Reason: Dry eyes Last Admin: 09/17/17 21:43 Dose: 0.3 ml Clonidine HCl (Catapres Tts1 0.1 Mg/24 Hr) 1 patch TD Q7D@1000 [facility] Last Admin: 09/22/17 09:56 Dose: 1 patch Folic Acid (Folic Acid) 1 mg NG DAILY [facility] Last Admin: 09/25/17 09:29 Dose: 1 mg Heparin Sodium (Porcine) (Heparin) 5,000 units SC Q12 DENIA PRN Reason: Protocol Last Admin: 09/25/17 09:29 Dose: 5,000 units Hydralazine HCl (Apresoline) 10 mg IVP Q6 PRN PRN Reason: BP> 180 Last Admin: 09/24/17 09:16 Dose: 10 mg Levetiracetam 1,000 mg/ Sodium (Chloride) 110 mls @ 460 mls/hr IV Q12 [facility] Last Admin: 09/25/17 09:56 Dose: 460 mls/hr Insulin Detemir (Levemir) 15 unit SC HS [facility] Last Admin: 09/22/17 22:12 Dose: 15 unit Insulin Human Lispro (Humalog High) 0 units SC Q6H DENIA PRN Reason: Protocol Last Admin: 09/25/17 11:29 Dose: Not Given Labetalol HCl (Trandate) 200 mg PO BID [facility] Levalbuterol HCl (Xopenex) 0.63 mg IH [id number] [facility] Last Admin: 09/25/17 07:13 Dose: 0.63 mg Multivitamins/Vitamin C (Multi-Delyn Liquid) 15 ml PO 0800 [facility] Last Admin: 09/25/17 08:30 Dose: 15 ml Pantoprazole Sodium (Protonix Inj) 40 mg IVP Q12 [facility] Last Admin: 09/25/17 09:28 Dose: 40 mg Thiamine HCl (Vitamin B1 Tab) 100 mg PO DAILY [facility] Last Admin: 09/25/17 11:30 Dose: Not Given Vitamin A (Vitamin A & D Oint Ud Foilpak) 1 ea TOP Q8 PRN PRN Reason: Dry skin Last Admin: 09/17/17 18:41 Dose: 1 ea - Labs Labs: 09/25/17 07:25 09/25/17 07:25 PT 13.0 SECONDS (9.4-12.5) H 09/24/17 05:50 INR 1.13 (0.93-1.08) H 09/24/17 05:50 APTT 32.4 Seconds (25.1-36.5) 09/17/17 05:45 - Constitutional Appears: Non-toxic, No Acute Distress - Head Exam Head Exam: ATRAUMATIC, NORMOCEPHALIC - Eye Exam Eye Exam: EOMI, Normal appearance - ENT Exam ENT Exam: Mucous Membranes Dry - Neck Exam Additional comments: Trach - Respiratory Exam Respiratory Exam: NORMAL BREATHING PATTERN. absent: Respiratory Distress - Cardiovascular Exam Cardiovascular Exam: REGULAR RHYTHM. absent: Tachycardia - GI/Abdominal Exam GI & Abdominal Exam: Soft. absent: Distended, Tenderness Assessment and Plan - Assessment and Plan (Free Text) Assessment: 47 y/o male with acute respiratory failure s/p trach and PEG Plan: -trach malfunctioned and removed due to patient's significant improvement in respiratory and mental status -dry gauze dressing placed over trach site -patient tolerated removal -ok for liquids/food PO -aspiration precautions -no further surgical intervention -examined with Dr. Samy Oakes PGY3
--- NOTE | 2017-09-25 12:06 | CP.PCM.PN ---
<Lisseth Garcia - Last Filed: 09/25/17 12:05> Subjective - Date & Time of Evaluation Date of Evaluation: 09/25/17 Time of Evaluation: 09:55 - Subjective Subjective: S&E at bedside, swallow evaluation recommend puree diet, patient G tube feed stopped, patient reported to have several episodes of diarrhea, no GI bleeding reported. No respiratory distress, patient denies N/V or abdominal pain, Trach present, no respiratory distress. Objective - Vital Signs/Intake and Output Vital Signs (last 24 hours): Temp Pulse Resp BP Pulse Ox 98.1 F 109 H 29 H 166/93 H 99 09/25/17 00:00 09/25/17 09:27 09/25/17 01:00 09/25/17 09:27 09/25/17 01:00 - Medications Medications: Current Medications Acetaminophen (Tylenol 325mg Tab) 650 mg PO Q4 PRN PRN Reason: Fever >100.4 F Amlodipine Besylate (Norvasc) 5 mg PO DAILY [facility] Last Admin: 09/25/17 09:27 Dose: 5 mg Artificial Tears (Refresh Opth Soln) 0.3 ml OU Q12 PRN PRN Reason: Dry eyes Last Admin: 09/17/17 21:43 Dose: 0.3 ml Clonidine HCl (Catapres Tts1 0.1 Mg/24 Hr) 1 patch TD Q7D@1000 [facility] Last Admin: 09/22/17 09:56 Dose: 1 patch Folic Acid (Folic Acid) 1 mg NG DAILY [facility] Last Admin: 09/25/17 09:29 Dose: 1 mg Heparin Sodium (Porcine) (Heparin) 5,000 units SC Q12 [facility] PRN Reason: Protocol Last Admin: 09/25/17 09:29 Dose: 5,000 units Hydralazine HCl (Apresoline) 10 mg IVP Q6 PRN PRN Reason: BP> 180 Last Admin: 09/24/17 09:16 Dose: 10 mg Levetiracetam 1,000 mg/ Sodium (Chloride) 110 mls @ 460 mls/hr IV Q12 [facility] Last Admin: 09/25/17 09:56 Dose: 460 mls/hr Insulin Detemir (Levemir) 15 unit SC HS [facility] Last Admin: 09/22/17 22:12 Dose: 15 unit Insulin Human Lispro (Humalog High) 0 units SC Q6H [facility] PRN Reason: Protocol Last Admin: 09/25/17 11:29 Dose: Not Given Labetalol HCl (Trandate) 200 mg PO BID [facility] Last Admin: 09/25/17 11:48 Dose: 200 mg Levalbuterol HCl (Xopenex) 0.63 mg IH [id number] [facility] Last Admin: 09/25/17 07:13 Dose: 0.63 mg Multivitamins/Vitamin C (Multi-Delyn Liquid) 15 ml PO 0800 [facility] Last Admin: 09/25/17 08:30 Dose: 15 ml Pantoprazole Sodium (Protonix Inj) 40 mg IVP Q12 [facility] Last Admin: 09/25/17 09:28 Dose: 40 mg Thiamine HCl (Vitamin B1 Tab) 100 mg PO DAILY [facility] Last Admin: 09/25/17 11:30 Dose: Not Given Vitamin A (Vitamin A & D Oint Ud Foilpak) 1 ea TOP Q8 PRN PRN Reason: Dry skin Last Admin: 09/17/17 18:41 Dose: 1 ea - Labs Labs: 09/25/17 07:25 09/25/17 07:25 PT 13.0 SECONDS (9.4-12.5) H 09/24/17 05:50 INR 1.13 (0.93-1.08) H 09/24/17 05:50 APTT 32.4 Seconds (25.1-36.5) 09/17/17 05:45 - Constitutional Appears: No Acute Distress - Eye Exam Eye Exam: Normal appearance. absent: Scleral icterus - ENT Exam ENT Exam: Mucous Membranes Moist - Neck Exam Additional comments: (+) trach - Respiratory Exam Respiratory Exam: NORMAL BREATHING PATTERN. absent: Respiratory Distress - Cardiovascular Exam Cardiovascular Exam: +S1, +S2 - GI/Abdominal Exam GI & Abdominal Exam: Soft, Normal Bowel Sounds. absent: Guarding, Tenderness, Rebound Additional comments: midline incision with [employer], (+) G tube, siite dry and intact, no drain or erythema - Extremities Exam Extremities Exam: absent: Calf Tenderness, Pedal Edema - Neurological Exam Neurological Exam: Alert, Awake, Oriented x3 - Skin Skin Exam: Dry, Warm Assessment and Plan - Assessment and Plan (Free Text) Assessment: Assessment: Respiratory failure, status post trach and G-tube Anemia, status post endoscopy found to have LA grade a esophagitis grade D/ esophageal ulcers Status postcardiac arrest S/P Acute pancreatitis secondary to EtOH C. difficile colitis, last stool cdiff, 09/23 negative Elevated LFTs, which are showing a downward trend, multifactoral: medication induced,shock liver, ETOH(hepatitis panel negative) Seizure disorder Acute kidney injury Plan: G-tube feeding as per surgery Monitor LFTs which are improving continue Protonix twice a day On IV antibiotics OFF Vancomycin monitor H/H, overt GI bleeding, transfuse as necessary Monitor electrolytes on subcutaneous heparin Recommend EGD before advancing diet. Seen and discussed with Dr. Fernandez <Yogi Fernandez V - Last Filed: 09/26/17 00:02> Objective - Vital Signs/Intake and Output Vital Signs (last 24 hours): Temp Pulse Resp BP Pulse Ox 98.8 F 89 19 166/93 H 98 09/25/17 12:00 09/25/17 12:00 09/25/17 12:00 09/25/17 09:27 09/25/17 06:06 Intake and Output: 09/25/17 09/26/17 18:59 06:59 Output Total 135 Balance -135 - Labs Labs: 09/25/17 07:25 09/25/17 07:25 PT 13.0 SECONDS (9.4-12.5) H 09/24/17 05:50 INR 1.13 (0.93-1.08) H 09/24/17 05:50 APTT 32.4 Seconds (25.1-36.5) 09/17/17 05:45 Attending/Attestation - Attestation I have personally seen and examined this patient.: Yes I have fully participated in the care of the patient.: Yes I have reviewed all pertinent clinical information, including history, physical exam and plan: Yes Notes (Text): This is an addendum to GI progress report dictated by Lisseth Garcia APN.The patient was seen and examined earlier. Medical records, lab studies, imagings were reviewed. Last 24 hours events reviewed. Agreed with the above treatment plan as outlined in Lisseth Garcia APN's notes the with the addition of the following 09/26/17 00:02
[2017-09-25 12:36] VITALS: PULSE 89; RESP 19; TEMP 98.8
--- NOTE | 2017-09-25 12:41 | CP.PCM.PN ---
Subjective - Date & Time of Evaluation Date of Evaluation: 09/25/17 Time of Evaluation: 12:39 - Subjective Subjective: Follow up Nephrology Consultation: Assessment: stable Acute Kidney Injury (N17.9) likely due to pre-renal state, SIRS, Acute tubular necrosis: improved, now off HD Hyponatermia, hypokalemia DM, HTN, chronic alcoholism, hepatic dysfunction acute pancreatitis HAGMA with lactic acidosis + alcohol ketoacidosis and starvation ketoacidosis Thrombocytopenia Hypomagnesemia, hypophosphatemia s/p cardiac arrest, seizure ARDS s/p trach/PEG Plan no further need of renal replacement therapy Patient not on ACEI/ARB due to IRWIN. maintain hemodynamics stable. started 5 mg/ day of norvasc and labetalol [address] abdomen showed acute pancreatitis and fatty liver continue with folic acid MVI, thiamine supplements supplement electrolytes as needed. continue with free water 250 mL 4 times a day anemia management as per primary team. Dose meds/antibiotics for improved GFR. Avoid nephrotoxins/NSAIDs Glycemic control awaiting LT[facility] Thanks for allowing me to participate in care of your patient. Will sign off and see him on PRN basis. Please call if any Qs Dr Finn Ng Office: [phone] Chief Complaint; unable HPI: Pt is a 47 M with hx of diabetes Mellitus hypertension and chronic daily Etoh abuse presented with SOB, pain abdomen and not feeling well renal consult for IRWIN and acidosis ROS: unable Physical Examination: General Appearance: stable comfortable Vitals reviewed and noted as below Head; Atraumatic, normocephalic ENT: s/p trach Neck; supple no lymphadenopathy, no thyromegaly or bruit Lungs: Increased respiratory rate/effort. Breath sounds bilateral with basal rales Heart: normal rate. s1s2 normal. No rub or gallop. Extremities: no edema. No varicose veins Neurological: Patient is awake Skin: Warm and dry. Normal turgor. No rash. Palpitation: Normal elasticity for age Abdomen: Abdomen is soft. Bowel sounds decreased. There is no abdominal tenderness, no guarding/rigidity no organomegaly. distended. has PEG tube Psych: unable MSK: no joint tenderness or swelling. has clubbing : kidney or bladder not palpable Labs/imaging reviewed. Past medical history, past surgical history, family history, social history, allergy reviewed and noted as below Family hx: no hx of CKD. Rest non-contributory UA no crystals but has ketone and protein Objective - Vital Signs/Intake and Output Vital Signs (last 24 hours): Temp Pulse Resp BP Pulse Ox 98.8 F 89 19 166/93 H 99 09/25/17 12:00 09/25/17 12:00 09/25/17 12:00 09/25/17 09:27 09/25/17 01:00 - Medications Medications: Current Medications Acetaminophen (Tylenol 325mg Tab) 650 mg PO Q4 PRN PRN Reason: Fever >100.4 F Amlodipine Besylate (Norvasc) 5 mg PO DAILY [facility] Last Admin: 09/25/17 09:27 Dose: 5 mg Artificial Tears (Refresh Opth Soln) 0.3 ml OU Q12 PRN PRN Reason: Dry eyes Last Admin: 09/17/17 21:43 Dose: 0.3 ml Clonidine HCl (Catapres Tts1 0.1 Mg/24 Hr) 1 patch TD Q7D@1000 [facility] Last Admin: 09/22/17 09:56 Dose: 1 patch Folic Acid (Folic Acid) 1 mg NG DAILY [facility] Last Admin: 09/25/17 09:29 Dose: 1 mg Heparin Sodium (Porcine) (Heparin) 5,000 units SC Q12 [facility] PRN Reason: Protocol Last Admin: 09/25/17 09:29 Dose: 5,000 units Hydralazine HCl (Apresoline) 10 mg IVP Q6 PRN PRN Reason: BP> 180 Last Admin: 09/24/17 09:16 Dose: 10 mg Levetiracetam 1,000 mg/ Sodium (Chloride) 110 mls @ 460 mls/hr IV Q12 [facility] Last Admin: 09/25/17 09:56 Dose: 460 mls/hr Insulin Detemir (Levemir) 15 unit SC HS [facility] Last Admin: 09/22/17 22:12 Dose: 15 unit Insulin Human Lispro (Humalog High) 0 units SC Q6H [facility]IA PRN Reason: Protocol Last Admin: 09/25/17 11:29 Dose: Not Given Labetalol HCl (Trandate) 200 mg PO BID [facility] Last Admin: 09/25/17 11:48 Dose: 200 mg Levalbuterol HCl (Xopenex) 0.63 mg IH [id number] [facility] Last Admin: 02/13/18 07:13 Dose: 0.63 mg Multivitamins/Vitamin C (Multi-Delyn Liquid) 15 ml PO 0800 [facility] Last Admin: 09/25/17 08:30 Dose: 15 ml Pantoprazole Sodium (Protonix Inj) 40 mg IVP Q12 [facility] Last Admin: 09/25/17 09:28 Dose: 40 mg Thiamine HCl (Vitamin B1 Tab) 100 mg PO DAILY [facility] Last Admin: 09/25/17 11:30 Dose: Not Given Vitamin A (Vitamin A & D Oint Ud Foilpak) 1 ea TOP Q8 PRN PRN Reason: Dry skin Last Admin: 09/17/17 18:41 Dose: 1 ea - Labs Labs: 09/25/17 07:25 09/25/17 07:25 PT 13.0 SECONDS (9.4-12.5) H 09/24/17 05:50 INR 1.13 (0.93-1.08) H 09/24/17 05:50 APTT 32.4 Seconds (25.1-36.5) 09/17/17 05:45
--- NOTE | 2017-09-25 13:41 | CP.PCM.DIS ---
<Joao Garcia - Last Filed: 09/25/17 19:18> Provider - Provider Date of Admission: 09/08/17 10:51 Attending physician: Jeanne Daniels MD Primary care physician: Susan Lara Consults: Nephrology: Dr. Ng Palliative Care: [place] GI: Dr. Borden, Dr. Fernandez ID: Dr. Oreilly Neurology: Dr. Reynolds Surgery: Dr. Pablo Cardiology: Dr. Delgado Opthalmology: Dr. Gonzales Interventional Radiology: Dr. Esteban Psychiatry: Dr. Montoya Time Spent in preparation of Discharge (in minutes): 60 Diagnosis - Discharge Diagnosis (1) Septic shock Status: Resolved Priority: High (2) Cardiac arrest Status: Resolved Priority: High (3) Alcohol withdrawal Status: Resolved Priority: High (4) Acidosis Status: Resolved Priority: High (5) Seizure Status: Resolved Priority: High (6) Acute kidney failure Status: Resolved Priority: High (7) Clostridium difficile infection Status: Resolved Priority: Medium (8) Pancreatitis Status: Resolved Priority: Medium (9) History of hypertension Status: Chronic Priority: Low (10) History of diabetes mellitus Status: Chronic Priority: Low Hospital Course - Lab Results Lab Results: Micro Results 09/23/17 02:10 Stool C. difficile Antigen & Toxin A,B (M - Final 09/17/17 10:45 Blood-Venous Blood Culture - Final NO GROWTH AFTER 5 DAYS 09/17/17 10:45 Blood-Venous Gram Stain - Final TEST NOT PERFORMED 09/17/17 10:30 Blood-Venous Blood Culture - Final NO GROWTH AFTER 5 DAYS 09/17/17 10:30 Blood-Venous Gram Stain - Final TEST NOT PERFORMED 09/21/17 10:12 Stool C. difficile Antigen & Toxin A,B (M - Final 09/17/17 13:00 Urine,Chance Urine Culture - Final No Growth (<1,000 CFU/ML) 09/17/17 13:00 Trachasp Gram Stain - Final 09/17/17 13:00 Trachasp Sputum Culture - Final Escherichia Coli 09/08/17 12:30 Blood-Venous Blood Culture - Final NO GROWTH AFTER 5 DAYS 09/08/17 12:30 Blood-Venous Gram Stain - Final TEST NOT PERFORMED 09/09/17 00:00 Trachasp Gram Stain - Final 09/09/17 00:00 Trachasp Sputum Culture - Final NORMAL ORAL ETHAN 09/08/17 13:33 Nose MRSA Culture (Admit) - Final MRSA NOT DETECTED 09/09/17 10:29 Stool C. difficile Antigen & Toxin A,B (M - Final 09/08/17 11:44 Urine,Clean Catch Urine Culture - Final No Growth (<1,000 CFU/ML) Most Recent Lab Values WBC 9.5 10^3/ul (4.5-11.0) 09/25/17 07:25 RBC 2.54 10^6/uL (3.5-6.1) L 09/25/17 07:25 Hgb 7.8 g/dL (14.0-18.0) L 09/25/17 07:25 Hct 24.7 % (42.0-52.0) L 09/25/17 07:25 MCV 97.2 fl (80.0-105.0) 09/25/17 07:25 MCH 30.7 pg (25.0-35.0) 09/25/17 07:25 MCHC 31.6 g/dl (31.0-37.0) 09/25/17 07:25 RDW 16.1 % (11.5-14.5) H 09/25/17 07:25 Manual Plt Count 27 K/mm3 (120-450) L* 09/09/17 09:30 Plt Count 330 10^3/uL (120.0-450.0) 09/25/17 07:25 MPV 10.2 fl (7.0-11.0) 09/25/17 07:25 Gran % 71.3 % (50.0-68.0) H 09/24/17 05:50 Lymph % (Auto) 21.0 % (22.0-35.0) L 09/24/17 05:50 [place] % (Auto) 6.9 % (1.0-6.0) H 09/24/17 05:50 Eos % (Auto) 0.2 % (1.5-5.0) L 09/24/17 05:50 Baso % (Auto) 0.6 % (0.0-3.0) 09/24/17 05:50 Gran # 6.20 (1.4-6.5) 09/24/17 05:50 Lymph # (Auto) 1.8 (1.2-3.4) 09/24/17 05:50 [place] # (Auto) 0.6 (0.1-0.6) 09/24/17 05:50 Eos # (Auto) 0.0 (0.0-0.7) 09/24/17 05:50 Baso # (Auto) 0.05 K/mm3 (0.0-2.0) 09/24/17 05:50 Neutrophils % (Manual) 45 % (50.0-70.0) L 09/15/17 05:50 Band Neutrophils % 25 % (0-2) H* 09/15/17 05:50 Lymphocytes % (Manual) 12 % (22.0-35.0) L 09/15/17 05:50 Atypical Lymphs % 3 % (0.0-0.0) H 09/15/17 05:50 Monocytes % (Manual) 10 % (1.0-6.0) H 09/15/17 05:50 Eosinophils % (Manual) 2 % (0.0-3.0) 09/15/17 05:50 Metamyelocytes % 2 % 09/15/17 05:50 Myelocytes % 1 % 09/15/17 05:50 Platelet Evaluation Low (NORMAL) 09/15/17 05:50 Anisocytosis (manual) 1+ 09/11/17 05:45 Macrocytosis (manual) Slight 09/11/17 05:45 Hypochromasia Slight 09/15/17 05:50 PT 13.0 SECONDS (9.4-12.5) H 09/24/17 05:50 INR 1.13 (0.93-1.08) H 09/24/17 05:50 APTT 32.4 Seconds (25.1-36.5) 09/17/17 05:45 pCO2 32 mm/Hg (35-45) L 09/24/17 05:20 pO2 164.0 mm/Hg (80-100) H 09/24/17 05:20 HCO3 18.9 mmol/L (21-28) L 09/24/17 05:20 ABG pH 7.38 (7.35-7.45) 09/24/17 05:20 ABG Total CO2 19.9 mmol.L (22-28) L 09/24/17 05:20 ABG O2 Saturation 99.6 % (95-98) H 09/24/17 05:20 ABG O2 Content 10.2 ML/dl (15-23) L 09/24/17 05:20 ABG Base Excess -5.6 mmol/L (-2.0-3.0) L 09/24/17 05:20 ABG Hemoglobin 7.2 g/dL (11.7-17.4) L 09/24/17 05:20 ABG Carboxyhemoglobin 1.8 % (0.5-1.5) H 09/24/17 05:20 POC ABG HHb (Measured) 0.4 % (0-5) 09/24/17 05:20 ABG Methemoglobin 1.3 % (0.0-3.0) 09/24/17 05:20 ABG O2 Capacity 10.2 mL/dl (16-24) L 09/24/17 05:20 ABG Potassium 3.2 mmol/L (3.6-5.2) L 09/08/17 14:20 VBG pH 7.30 (7.32-7.43) L 09/10/17 03:30 VBG pCO2 36.0 (40-60) L 09/10/17 03:30 VBG HCO3 17.7 mmol/l (21-28) L 09/10/17 03:30 VBG Total CO2 18.8 mmol.L (22-28) L 09/10/17 03:30 VBG O2 Sat (Calc) 95.4 % (40-65) H 09/10/17 03:30 VBG Base Excess -7.9 mmol/L (0.0-2.0) L 09/10/17 03:30 VBG Potassium 3.5 mmol/L (3.6-5.2) L 09/10/17 03:30 Sodium 141.0 mmol/L (132-148) 09/10/17 03:30 Chloride 107.0 mmol/L (98-107) 09/10/17 03:30 Glucose 196 mg/dl (75-110) H 09/10/17 03:30 Lactate 2.6 mmol/L (0.7-2.1) H 09/10/17 03:30 Hgb O2 Saturation 96.5 % (95.0-98.0) 09/24/17 05:20 Mechanical Rate 16 09/08/17 14:20 Tidal Volume 400 09/08/17 14:20 PEEP 5 09/08/17 14:20 FiO2 35.0 % 09/24/17 05:20 Sodium 148 mmol/L (132-148) 09/25/17 07:25 Potassium 3.3 mmol/L (3.6-5.0) L 09/25/17 07:25 Chloride 114 mmol/L (98-107) H 09/25/17 07:25 Carbon Dioxide 22 mmol/L (21-33) 09/25/17 07:25 Anion Gap 16 (10-20) 09/25/17 07:25 BUN 8 mg/dL (7-21) 09/25/17 07:25 Creatinine 0.9 mg/dl (0.8-1.5) 09/25/17 07:25 Est GFR ( Amer) > 60 09/25/17 07:25 Est GFR (Non-Af Amer) > 60 09/25/17 07:25 POC Glucose (mg/dL) 143 mg/dL (65-110) H 09/25/17 11:23 Random Glucose 154 mg/dL (70-110) H 09/25/17 07:25 Hemoglobin A1c 6.4 % (4.2-6.5) 09/08/17 10:00 Serum Osmolality 306 mosm/kg (272-300) H 09/08/17 13:40 Calcium 9.0 mg/dL (8.4-10.5) 09/25/17 07:25 Phosphorus 3.7 mg/dL (2.5-4.5) 09/25/17 07:25 Magnesium 1.3 mg/dL (1.7-2.2) L 09/25/17 07:25 Total Bilirubin 0.8 mg/dL (0.2-1.3) 09/25/17 07:25 AST 28 U/L (17-59) 09/25/17 07:25 ALT 19 U/L (7-56) 09/25/17 07:25 Alkaline Phosphatase 131 U/L (38-126) H 09/25/17 07:25 Ammonia 12 umol/L (9-33) 09/09/17 11:30 Lactate Dehydrogenase 959 U/L (333-699) H 09/08/17 10:00 Total Creatine Kinase 220 U/L (35-230) 09/08/17 10:00 Troponin I 0.03 ng/mL 09/08/17 10:00 NT-Pro-B Natriuret Pep 779 pg/mL (0-450) H 09/08/17 10:00 Total Protein 6.9 g/dL (5.8-8.3) 09/25/17 07:25 Albumin 2.9 g/dL (3.0-4.8) L 09/25/17 07:25 Globulin 4.1 gm/dL 09/25/17 07:25 Albumin/Globulin Ratio 0.7 (1.1-1.8) L 09/25/17 07:25 Triglycerides 1053 mg/dL (35-160) H 09/08/17 12:05 Cholesterol 269 mg/dL (130-200) H 09/08/17 12:05 LDL Cholesterol Direct 62 mg/dL (0-129) 09/08/17 12:05 HDL Cholesterol 60 mg/dL (29-60) 09/08/17 12:05 Amylase 33 U/L (35-125) L 09/12/17 06:00 Lipase 137 U/L (23-300) 09/12/17 06:00 TSH 3rd Generation 0.51 mIU/mL (0.46-4.68) 09/08/17 10:00 Procalcitonin 2.76 NG/ML (0.19-0.49) H 09/17/17 10:45 Arterial Blood Potassium 3.2 mmol/L (3.6-5.2) L 09/08/17 14:20 Venous Blood Potassium 3.5 mmol/L (3.6-5.2) L 09/10/17 03:30 Urine Color Yellow (YELLOW) 09/08/17 11:44 Urine Appearance Clear (CLEAR) 09/08/17 11:44 Urine pH 6.5 (4.7-8.0) 09/08/17 11:44 Ur Specific [place] 1.020 (1.005-1.035) 09/08/17 11:44 Urine Protein 100 mg/dL (<30 mg/dL) H 09/08/17 11:44 Urine Glucose (UA) Negative mg/dL (NEGATIVE) 09/08/17 11:44 Urine Ketones 40 mg/dL (NEGATIVE) H 09/08/17 11:44 Urine Blood Large (NEGATIVE) H 09/08/17 11:44 Urine Nitrate Negative (NEGATIVE) 09/08/17 11:44 Urine Bilirubin Small (NEGATIVE) H 09/08/17 11:44 Urine Urobilinogen 0.2 E.U./dL (<1 E.U./dL) 09/08/17 11:44 Ur Leukocyte Esterase Negative [place]/uL (NEGATIVE) 09/08/17 11:44 Urine RBC 0 - 2 /hpf (0-2) 09/08/17 11:44 Urine WBC 0 - 2 /hpf (0-6) 09/08/17 11:44 Ur Epithelial Cells 0 - 2 /hpf (0-5) 09/08/17 11:44 Urine Bacteria Neg (NEG) 09/08/17 11:44 Hyaline Casts 0 - 2 /hpf 09/08/17 11:44 Coarse Granular Casts Trace /hpf (0-2) H 09/08/17 11:44 Urine Osmolality 335 mosm/kg (300-1000) 09/08/17 11:57 Ur Random Creatinine 43 mg/dL 09/08/17 20:00 Ur Random Sodium 89 meq/L 09/08/17 11:57 Ur Random Potassium 31.5 meq/L 09/08/17 11:57 Ur Random Urea Nitrogn 175 mg/dL 09/08/17 20:00 Stool Occult Blood Positive (NEGATIVE) H 09/09/17 10:29 Salicylates < 1 mg/dL (2.0-20.0) L 09/08/17 10:00 Urine Opiates Screen Negative (NEGATIVE) 09/08/17 11:57 Urine Methadone Screen Negative (NEGATIVE) 09/08/17 11:57 Ur Barbiturates Screen Negative (NEGATIVE) 09/08/17 11:57 Valproic Acid 53 ug/mL (50.0-100.0) 09/10/17 03:30 Ur Phencyclidine Scrn Negative (NEGATIVE) 09/08/17 11:57 Ur Amphetamines Screen Negative (NEGATIVE) 09/08/17 11:57 U Benzodiazepines Scrn Negative (NEGATIVE) 09/08/17 11:57 U Oth Cocaine Metabols Negative (NEGATIVE) 09/08/17 11:57 U Cannabinoids Screen Negative (NEGATIVE) 09/08/17 11:57 Alcohol, Quantitative 40 mg/dL (0-10) H 09/08/17 09:21 Hepatitis A IgM Ab Negative (NEGATIVE) 09/12/17 16:04 Hep Bs Antigen Negative (NEGATIVE) 09/12/17 16:04 Hep B Core IgM Ab Negative (NEGATIVE) 09/12/17 16:04 Hepatitis C Antibody Negative (NEGATIVE) 09/12/17 16:04 HIV 1&2 Ag/Ab, 4th Gen Nonreactive (Nonreactive) 09/08/17 13:40 Influenza Typ A,B (EIA) Negative for flu a/b (NEGATIVE) 09/08/17 09:21 Ur L.pneumophila Ag Negative (NEGATIVE) 09/08/17 20:00 Mycoplasma pneumon IgG 1.96 (<=0.90) H 09/08/17 19:55 Mycoplasma pneumon IgM 101 U/mL (<770) 09/08/17 19:55 Ur Strep pneumoniae Ag Not detected 09/08/17 20:00 Blood Type O POSITIVE 09/17/17 06:45 Blood Type Confirm O POSITIVE 09/09/17 12:17 Antibody Screen Negative 09/17/17 06:45 BBK History Checked Patient has bt 09/17/17 06:45 - Hospital Course Hospital Course: Initial admission note on 09/08/17: "History was limited as patient is altered and tachypneic so not able to formalize full sentences. Patient states that he is a diabetic on Metformin and that he drinks alcohol (beer). 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 Patient is able to tell us that his 's name is Ingrid. Patient states that he has been hospitalized before but is unable to state where. Rest of history is limited." Hospital Course: Patient admitted to critical care for severe sepsis (with lactate of 7.7 on presentation) and metabolic derangement (high anion gap metabolic acidosis, metabolic acidosis, hyponatremia, and hypokalemia). Code blue called shortly after admission on the same day due to being found unresponsive and pulseless in cardiac arrest. Patient was in asystole and ACLS protocol initiated. Patient vomited and had a seizure during the code. Code was called at 12:08 and return of spontaneous circulation at 12:17 on 09/08/17. Patient was intubated and sedated at this time. Patient kept on IV Keppra, and EEG performed on 09/10/17 was read as a normal EEG, no epileptiform activity. Keppra maintained for prophylaxis. Patient diagnosed and treated for pancreatitis on admission due to CT evidence and elevated lipase. Patient was c. difficile positive 09/09/17 and completed course of oral Vancomycin and IV Flagyl treatment. Repeat studies after treatment were negative for c. difficile. Patient's sputum culture on 09/17/17 revealed E. coli which the patient was treated for with Merrem. Patient with acute kidney injury, not improving with conservative medical management. So right femoral shiley catheter was placed for temporary dialysis, and it was later removed after a few sessions of dialysis because the renal status improved. Patient received dialysis from 09/12/17-09/19/17. GI consulted for PEG tube placement. EGD revealed esophagitis with esophageal ulcers. Therefore, PEG tube placement deferred, and instead surgical gastrostomy recommended. Surgery performed tracheostomy and gastrostomy tube placements as patient was intubated for an extended period of time with varying degrees of sedation depending on agitation. The tube placements were performed on 09/19/17. Tracheostomy collar malfunctioning on 09/21/17, but it remained usable. Tracheostomy tube removed on 09/25/17. Sutures in place may be removed 10 days from time of discharge. Patient stable for discharge to [facility]. This is a summary of the hospital course. For more information, refer to the medical records. Discharge Exam - Head Exam Head Exam: ATRAUMATIC, NORMOCEPHALIC - Eye Exam Eye Exam: EOMI, PERRL - ENT Exam ENT Exam: Mucous Membranes Moist - Neck Exam Additional comments: Dressing in place after removal of tracheostomy tube - Respiratory Exam Respiratory Exam: Clear to PA & Lateral, NORMAL BREATHING PATTERN. absent: Rales, Rhonchi, Wheezes - Cardiovascular Exam Cardiovascular Exam: REGULAR RHYTHM, +S1, +S2 - GI/Abdominal Exam GI & Abdominal Exam: Normal Bowel Sounds, Soft. 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 Able to communicate via writing and can vocalize short words to a small degree after having the tracheostomy tube removed. - Psychiatric Exam Psychiatric exam: Normal Affect, Normal Mood - Skin Skin Exam: Dry, Warm Discharge Plan - Discharge Medications Prescriptions: Pantoprazole [Protonix] 40 mg PO DAILY #30 ect - Follow Up Plan Condition: STABLE Disposition: [facility] Instructions: Sepsis (GEN), Metabolic Acidosis (GEN) Additional Instructions: 1. Puree Diet with thin liquids. Patient is high risk for aspiration precaution - must watch with feeds. 2. Stitches for trach will need to be taken out in 10 days. Change gauze as needed. Referrals: Susan Lara MD [Primary Care Provider] - <Jeanne Daniels - Last Filed: 09/26/17 13:29> Provider - Provider Date of Admission: 09/08/17 10:51 Attending physician: Jeanne Daniels MD Primary care physician[facility] - Lab Results Lab Results: Micro Results 09/23/17 02:10 Stool C. difficile Antigen & Toxin A,B (M - Final 09/17/17 10:45 Blood-Venous Blood Culture - Final NO GROWTH AFTER 5 DAYS 09/17/17 10:45 Blood-Venous Gram Stain - Final TEST NOT PERFORMED 09/17/17 10:30 Blood-Venous Blood Culture - Final NO GROWTH AFTER 5 DAYS 09/17/17 10:30 Blood-Venous Gram Stain - Final TEST NOT PERFORMED 09/21/17 10:12 Stool C. difficile Antigen & Toxin A,B (M - Final 09/17/17 13:00 Urine,Chance Urine Culture - Final No Growth (<1,000 CFU/ML) 09/17/17 13:00 Trachasp Gram Stain - Final 09/17/17 13:00 Trachasp Sputum Culture - Final Escherichia Coli 09/08/17 12:30 Blood-Venous Blood Culture - Final NO GROWTH AFTER 5 DAYS 09/08/17 12:30 Blood-Venous Gram Stain - Final TEST NOT PERFORMED 09/09/17 00:00 Trachasp Gram Stain - Final 09/09/17 00:00 Trachasp Sputum Culture - Final NORMAL ORAL ETHAN 09/08/17 13:33 Nose MRSA Culture (Admit) - Final MRSA NOT DETECTED 09/09/17 10:29 Stool C. difficile Antigen & Toxin A,B (M - Final 09/08/17 11:44 Urine,Clean Catch Urine Culture - Final No Growth (<1,000 CFU/ML) Most Recent Lab Values WBC 9.5 10^3/ul (4.5-11.0) 09/25/17 07:25 RBC 2.54 10^6/uL (3.5-6.1) L 09/25/17 07:25 Hgb 7.8 g/dL (14.0-18.0) L 09/25/17 07:25 Hct 24.7 % (42.0-52.0) L 09/25/17 07:25 MCV 97.2 fl (80.0-105.0) 09/25/17 07:25 MCH 30.7 pg (25.0-35.0) 09/25/17 07:25 MCHC 31.6 g/dl (31.0-37.0) 09/25/17 07:25 RDW 16.1 % (11.5-14.5) H 09/25/17 07:25 Manual Plt Count 27 K/mm3 (120-450) L* 09/09/17 09:30 Plt Count 330 10^3/uL (120.0-450.0) 09/25/17 07:25 MPV 10.2 fl (7.0-11.0) 09/25/17 07:25 Gran % 71.3 % (50.0-68.0) H 09/24/17 05:50 Lymph % (Auto) 21.0 % (22.0-35.0) L 09/24/17 05:50 [place] % (Auto) 6.9 % (1.0-6.0) H 09/24/17 05:50 Eos % (Auto) 0.2 % (1.5-5.0) L 09/24/17 05:50 Baso % (Auto) 0.6 % (0.0-3.0) 09/24/17 05:50 Gran # 6.20 (1.4-6.5) 09/24/17 05:50 Lymph # (Auto) 1.8 (1.2-3.4) 09/24/17 05:50 [place] # (Auto) 0.6 (0.1-0.6) 09/24/17 05:50 Eos # (Auto) 0.0 (0.0-0.7) 09/24/17 05:50 Baso # (Auto) 0.05 K/mm3 (0.0-2.0) 09/24/17 05:50 Neutrophils % (Manual) 45 % (50.0-70.0) L 09/15/17 05:50 Band Neutrophils % 25 % (0-2) H* 09/15/17 05:50 Lymphocytes % (Manual) 12 % (22.0-35.0) L 09/15/17 05:50 Atypical Lymphs % 3 % (0.0-0.0) H 09/15/17 05:50 Monocytes % (Manual) 10 % (1.0-6.0) H 09/15/17 05:50 Eosinophils % (Manual) 2 % (0.0-3.0) 09/15/17 05:50 Metamyelocytes % 2 % 09/15/17 05:50 Myelocytes % 1 % 09/15/17 05:50 Platelet Evaluation Low (NORMAL) 09/15/17 05:50 Anisocytosis (manual) 1+ 09/11/17 05:45 Macrocytosis (manual) Slight 09/11/17 05:45 Hypochromasia Slight 09/15/17 05:50 PT 13.0 SECONDS (9.4-12.5) H 09/24/17 05:50 INR 1.13 (0.93-1.08) H 09/24/17 05:50 APTT 32.4 Seconds (25.1-36.5) 09/17/17 05:45 pCO2 32 mm/Hg (35-45) L 09/24/17 05:20 pO2 164.0 mm/Hg (80-100) H 09/24/17 05:20 HCO3 18.9 mmol/L (21-28) L 09/24/17 05:20 ABG pH 7.38 (7.35-7.45) 09/24/17 05:20 ABG Total CO2 19.9 mmol.L (22-28) L 09/24/17 05:20 ABG O2 Saturation 99.6 % (95-98) H 09/24/17 05:20 ABG O2 Content 10.2 ML/dl (15-23) L 09/24/17 05:20 ABG Base Excess -5.6 mmol/L (-2.0-3.0) L 09/24/17 05:20 ABG Hemoglobin 7.2 g/dL (11.7-17.4) L 09/24/17 05:20 ABG Carboxyhemoglobin 1.8 % (0.5-1.5) H 09/24/17 05:20 POC ABG HHb (Measured) 0.4 % (0-5) 09/24/17 05:20 ABG Methemoglobin 1.3 % (0.0-3.0) 09/24/17 05:20 ABG O2 Capacity 10.2 mL/dl (16-24) L 09/24/17 05:20 ABG Potassium 3.2 mmol/L (3.6-5.2) L 09/08/17 14:20 VBG pH 7.30 (7.32-7.43) L 09/10/17 03:30 VBG pCO2 36.0 (40-60) L 09/10/17 03:30 VBG HCO3 17.7 mmol/l (21-28) L 09/10/17 03:30 VBG Total CO2 18.8 mmol.L (22-28) L 09/10/17 03:30 VBG O2 Sat (Calc) 95.4 % (40-65) H 09/10/17 03:30 VBG Base Excess -7.9 mmol/L (0.0-2.0) L 09/10/17 03:30 VBG Potassium 3.5 mmol/L (3.6-5.2) L 09/10/17 03:30 Sodium 141.0 mmol/L (132-148) 09/10/17 03:30 Chloride 107.0 mmol/L (98-107) 09/10/17 03:30 Glucose 196 mg/dl (75-110) H 09/10/17 03:30 Lactate 2.6 mmol/L (0.7-2.1) H 09/10/17 03:30 Hgb O2 Saturation 96.5 % (95.0-98.0) 09/24/17 05:20 Mechanical Rate 16 09/08/17 14:20 Tidal Volume 400 09/08/17 14:20 PEEP 5 09/08/17 14:20 FiO2 35.0 % 09/24/17 05:20 Sodium 148 mmol/L (132-148) 09/25/17 07:25 Potassium 3.3 mmol/L (3.6-5.0) L 09/25/17 07:25 Chloride 114 mmol/L (98-107) H 09/25/17 07:25 Carbon Dioxide 22 mmol/L (21-33) 09/25/17 07:25 Anion Gap 16 (10-20) 09/25/17 07:25 BUN 8 mg/dL (7-21) 09/25/17 07:25 Creatinine 0.9 mg/dl (0.8-1.5) 09/25/17 07:25 Est GFR ( Amer) > 60 09/25/17 07:25 Est GFR (Non-Af Amer) > 60 09/25/17 07:25 POC Glucose (mg/dL) 143 mg/dL (65-110) H 09/25/17 11:23 Random Glucose 154 mg/dL (70-110) H 09/25/17 07:25 Hemoglobin A1c 6.4 % (4.2-6.5) 09/08/17 10:00 Serum Osmolality 306 mosm/kg (272-300) H 09/08/17 13:40 Calcium 9.0 mg/dL (8.4-10.5) 09/25/17 07:25 Phosphorus 3.7 mg/dL (2.5-4.5) 09/25/17 07:25 Magnesium 1.3 mg/dL (1.7-2.2) L 09/25/17 07:25 Total Bilirubin 0.8 mg/dL (0.2-1.3) 09/25/17 07:25 AST 28 U/L (17-59) 09/25/17 07:25 ALT 19 U/L (7-56) 09/25/17 07:25 Alkaline Phosphatase 131 U/L (38-126) H 09/25/17 07:25 Ammonia 12 umol/L (9-33) 09/09/17 11:30 Lactate Dehydrogenase 959 U/L (333-699) H 09/08/17 10:00 Total Creatine Kinase 220 U/L (35-230) 09/08/17 10:00 Troponin I 0.03 ng/mL 09/08/17 10:00 NT-Pro-B Natriuret Pep 779 pg/mL (0-450) H 09/08/17 10:00 Total Protein 6.9 g/dL (5.8-8.3) 09/25/17 07:25 Albumin 2.9 g/dL (3.0-4.8) L 09/25/17 07:25 Globulin 4.1 gm/dL 09/25/17 07:25 Albumin/Globulin Ratio 0.7 (1.1-1.8) L 09/25/17 07:25 Triglycerides 1053 mg/dL (35-160) H 09/08/17 12:05 Cholesterol 269 mg/dL (130-200) H 09/08/17 12:05 LDL Cholesterol Direct 62 mg/dL (0-129) 09/08/17 12:05 HDL Cholesterol 60 mg/dL (29-60) 09/08/17 12:05 Amylase 33 U/L (35-125) L 09/12/17 06:00 Lipase 137 U/L (23-300) 09/12/17 06:00 TSH 3rd Generation 0.51 mIU/mL (0.46-4.68) 09/08/17 10:00 Procalcitonin 2.76 NG/ML (0.19-0.49) H 09/17/17 10:45 Arterial Blood Potassium 3.2 mmol/L (3.6-5.2) L 09/08/17 14:20 Venous Blood Potassium 3.5 mmol/L (3.6-5.2) L 09/10/17 03:30 Urine Color Yellow (YELLOW) 09/08/17 11:44 Urine Appearance Clear (CLEAR) 09/08/17 11:44 Urine pH 6.5 (4.7-8.0) 09/08/17 11:44 Ur Specific [place] 1.020 (1.005-1.035) 09/08/17 11:44 Urine Protein 100 mg/dL (<30 mg/dL) H 09/08/17 11:44 Urine Glucose (UA) Negative mg/dL (NEGATIVE) 09/08/17 11:44 Urine Ketones 40 mg/dL (NEGATIVE) H 09/08/17 11:44 Urine Blood Large (NEGATIVE) H 09/08/17 11:44 Urine Nitrate Negative (NEGATIVE) 09/08/17 11:44 Urine Bilirubin Small (NEGATIVE) H 09/08/17 11:44 Urine Urobilinogen 0.2 E.U./dL (<1 E.U./dL) 09/08/17 11:44 Ur Leukocyte Esterase Negative [place]/uL (NEGATIVE) 09/08/17 11:44 Urine RBC 0 - 2 /hpf (0-2) 09/08/17 11:44 Urine WBC 0 - 2 /hpf (0-6) 09/08/17 11:44 Ur Epithelial Cells 0 - 2 /hpf (0-5) 09/08/17 11:44 Urine Bacteria Neg (NEG) 09/08/17 11:44 Hyaline Casts 0 - 2 /hpf 09/08/17 11:44 Coarse Granular Casts Trace /hpf (0-2) H 09/08/17 11:44 Urine Osmolality 335 mosm/kg (300-1000) 09/08/17 11:57 Ur Random Creatinine 43 mg/dL 09/08/17 20:00 Ur Random Sodium 89 meq/L 09/08/17 11:57 Ur Random Potassium 31.5 meq/L 09/08/17 11:57 Ur Random Urea Nitrogn 175 mg/dL 09/08/17 20:00 Stool Occult Blood Positive (NEGATIVE) H 09/09/17 10:29 Salicylates < 1 mg/dL (2.0-20.0) L 09/08/17 10:00 Urine Opiates Screen Negative (NEGATIVE) 09/08/17 11:57 Urine Methadone Screen Negative (NEGATIVE) 09/08/17 11:57 Ur Barbiturates Screen Negative (NEGATIVE) 09/08/17 11:57 Valproic Acid 53 ug/mL (50.0-100.0) 09/10/17 03:30 Ur Phencyclidine Scrn Negative (NEGATIVE) 09/08/17 11:57 Ur Amphetamines Screen Negative (NEGATIVE) 09/08/17 11:57 U Benzodiazepines Scrn Negative (NEGATIVE) 09/08/17 11:57 U Oth Cocaine Metabols Negative (NEGATIVE) 09/08/17 11:57 U Cannabinoids Screen Negative (NEGATIVE) 09/08/17 11:57 Alcohol, Quantitative 40 mg/dL (0-10) H 09/08/17 09:21 Hepatitis A IgM Ab Negative (NEGATIVE) 09/12/17 16:04 Hep Bs Antigen Negative (NEGATIVE) 09/12/17 16:04 Hep B Core IgM Ab Negative (NEGATIVE) 09/12/17 16:04 Hepatitis C Antibody Negative (NEGATIVE) 09/12/17 16:04 HIV 1&2 Ag/Ab, 4th Gen Nonreactive (Nonreactive) 09/08/17 13:40 Influenza Typ A,B (EIA) Negative for flu a/b (NEGATIVE) 09/08/17 09:21 Ur L.pneumophila Ag Negative (NEGATIVE) 09/08/17 20:00 Mycoplasma pneumon IgG 1.96 (<=0.90) H 09/08/17 19:55 Mycoplasma pneumon IgM 101 U/mL (<770) 09/08/17 19:55 Ur Strep pneumoniae Ag Not detected 09/08/17 20:00 Blood Type O POSITIVE 09/17/17 06:45 Blood Type Confirm O POSITIVE 09/09/17 12:17 Antibody Screen Negative 09/17/17 06:45 BBK History Checked Patient has bt 09/17/17 06:45 Attending/Attestation - Attestation I have personally seen and examined this patient.: Yes I have fully participated in the care of the patient.: Yes I have reviewed all pertinent clinical information, including history, physical exam and plan: Yes Notes (Text): I have seen and examined the patient at bedside with the resident. Agree with the above note with the following additions/ exceptions: Briefly this is 47 year male with history of alcohol abuse, DM-2 who came initially for abdominal pain and dyspnea. He was found to be severely acidotic and had elevated lactic acid level. He was diagnosed with pancreatitis. He is s/p Trach and gastrostomy tube placement. Patient is more alert and is able to talk and follow commands. Leukocytosis resolved. He had completed antibiotics for cdiff. Acute kidney injury has resolved. Urine output is increasing. Creatinine stabilized. There is no need for dialysis. Continue seizure precautions, keppra, thiamine, folate and MVI. LFT's improved. Patient complained of dry mouth. Swallow eval was obtained and they recommended puree consistency diet with thin liquids His trach was malfunctioned and was removed today due to significant improvement in respiratory and mental status. Dry guaze dressing placed over trach site. Case discussed with professor of social work in detail. Pending authorization for LTAC placement. Dr Jeanne Daniels
[2017-09-25 14:58] VITALS: O2SAT 98
--- NOTE | 2017-09-26 00:18 | PN ---
DATE: 09/25/2017 SUBJECTIVE: The patient was seen early this morning in ICU, room 128, bed 4. He was awake and alert, doing well. No fevers. PHYSICAL EXAMINATION: VITAL SIGNS: Temperature is 98, blood pressure is 120/70, respiratory rate of 60. HEENT: Unremarkable. NECK: Supple. LUNGS: Have decreased breath sounds. HEART: Normal S1, S2. ABDOMEN: Soft. LABORATORY EXAMINATION: Reveals a white count of 90.5, hemoglobin of 7, platelets are noted. On chemistries; BUN of 8, creatinine of 0.9, procalcitonin 2.76. Urinalysis is noted. ASSESSMENT/PLAN: This is a 47-year-old male who was seen earlier this morning in the Intensive Care Unit, awake and alert, doing well, status post severe sepsis with renal failure, Clostridium difficile on top of acute alcoholic pancreatitis and the is patient off of antibiotics and at risk for developing nosocomial infections. Jason Oreilly MD
== END 2017-09-25 15:23 | DRG 878 ==
LOC: ED 08:56 → ERH 10:51 → ICU 12:08 → 2A 09-25 10:14
PROVIDERS: ADMIT Internal Medicine; ATTEND Hospitalist
PROC: 5A1955Z Respiratory Ventilation, Greater than 96 Consecutive Hours (ICD-10-PCS; 2017-09-08)
PROC: 5A12012 Performance of Cardiac Output, Single, Manual (ICD-10-PCS; 2017-09-08)
PROC: 0BH18EZ Insertion of Endotracheal Airway into Trachea, Via Natural or Artificial Opening Endoscopic (ICD-10-PCS; 2017-09-08)
PROC: 05HM33Z Insertion of Infusion Device into Right Internal Jugular Vein, Percutaneous Approach (ICD-10-PCS; 2017-09-08)
PROC: B543ZZA Ultrasonography of Right Jugular Veins, Guidance (ICD-10-PCS; 2017-09-08)
PROC: 06HY33Z Insertion of Infusion Device into Lower Vein, Percutaneous Approach (ICD-10-PCS; 2017-09-12)
PROC: B54BZZA Ultrasonography of Right Lower Extremity Veins, Guidance (ICD-10-PCS; 2017-09-12)
PROC: 5A1D70Z Performance of Urinary Filtration, Intermittent, Less than 6 Hours Per Day (ICD-10-PCS; 2017-09-13)
PROC: 5A1D70Z Performance of Urinary Filtration, Intermittent, Less than 6 Hours Per Day (ICD-10-PCS; 2017-09-14)
PROC: 5A1D70Z Performance of Urinary Filtration, Intermittent, Less than 6 Hours Per Day (ICD-10-PCS; 2017-09-15)
PROC: 5A1D70Z Performance of Urinary Filtration, Intermittent, Less than 6 Hours Per Day (ICD-10-PCS; 2017-09-16)
PROC: 5A1D70Z Performance of Urinary Filtration, Intermittent, Less than 6 Hours Per Day (ICD-10-PCS; 2017-09-17)
PROC: 5A1D70Z Performance of Urinary Filtration, Intermittent, Less than 6 Hours Per Day (ICD-10-PCS; 2017-09-18)
PROC: 0DH60UZ Insertion of Feeding Device into Stomach, Open Approach (ICD-10-PCS; 2017-09-19)
PROC: 0DB68ZX Excision of Stomach, Via Natural or Artificial Opening Endoscopic, Diagnostic (ICD-10-PCS; 2017-09-19)
PROC: 5A1D70Z Performance of Urinary Filtration, Intermittent, Less than 6 Hours Per Day (ICD-10-PCS; 2017-09-19)
PROC: 0B110F4 Bypass Trachea to Cutaneous with Tracheostomy Device, Open Approach (ICD-10-PCS; principal; 2017-09-19 14:00)
DX: A41.4 Sepsis due to anaerobes (principal); K72.00 Acute and subacute hepatic failure without coma; N17.0 Acute kidney failure with tubular necrosis; I46.9 Cardiac arrest, cause unspecified; J69.0 Pneumonitis due to inhalation of food and vomit; R57.8 Other shock; R65.21 Severe sepsis with septic shock; G93.1 Anoxic brain damage, not elsewhere classified; D69.3 Immune thrombocytopenic purpura; A04.72 Enterocolitis due to Clostridium difficile, not specified as recurrent; J96.01 Acute respiratory failure with hypoxia; K85.20 Alcohol induced acute pancreatitis without necrosis or infection; Z99.11 Dependence on respirator [ventilator] status; F10.231 Alcohol dependence with withdrawal delirium; I12.0 Hypertensive chronic kidney disease with stage 5 chronic kidney disease or end stage renal disease; D69.59 Other secondary thrombocytopenia; E11.22 Type 2 diabetes mellitus with diabetic chronic kidney disease; E87.70 Fluid overload, unspecified; E11.649 Type 2 diabetes mellitus with hypoglycemia without coma; E87.1 Hypo-osmolality and hyponatremia; E87.6 Hypokalemia; E11.10 Type 2 diabetes mellitus with ketoacidosis without coma; K70.10 Alcoholic hepatitis without ascites; D64.9 Anemia, unspecified; F17.200 Nicotine dependence, unspecified, uncomplicated; G40.909 Epilepsy, unspecified, not intractable, without status epilepticus; H10.9 Unspecified conjunctivitis; H11.31 Conjunctival hemorrhage, right eye; I27.20 Pulmonary hypertension, unspecified; K22.10 Ulcer of esophagus without bleeding; K76.0 Fatty (change of) liver, not elsewhere classified; Y95 Nosocomial condition; E83.42 Hypomagnesemia; E83.39 Other disorders of phosphorus metabolism; E86.0 Dehydration; Z78.1 Physical restraint status; Z79.84 Long term (current) use of oral hypoglycemic drugs; Z79.899 Other long term (current) drug therapy; Z87.19 Personal history of other diseases of the digestive system; Z93.1 Gastrostomy status; Z99.2 Dependence on renal dialysis; B96.20 Unspecified Escherichia coli [E. coli] as the cause of diseases classified elsewhere; K29.50 Unspecified chronic gastritis without bleeding